=== PATIENT | male | born 1955 | race Caucasian/White ===

== ENCOUNTER 2018-09-03 15:58 | Inpatient (IN) | payer OTHER, SELFPAY ==
[2018-09-03] VITALS (8 sets, daily range): BP systolic 150–162; BP diastolic 73–94; PULSE 68–74; RESP 16–18; TEMP 36.5–36.8; O2SAT 97–100; BMI 21.8
--- NOTE | 2018-09-03 16:30 | CT_ITS ---
STUDY: CT ABDOMEN AND PELVIS WITH CONTRAST REASON FOR EXAM: Male, 62 years old. Abdominal pain with nausea/emesis. History of colon cancer personally on chemotherapy/immunotherapy. 2. Small bowel obstruction. RADIATION DOSAGE (If Supplied By Facility): CTDIvol = ( 15.14 ) mGy, DLP = ( 939.36 ) mGycm TECHNIQUE: Transaxial images were obtained from the dome of the diaphragm to the symphysis pubis without oral contrast. 75ML ml of Isovue 300 contrast was administered. Sagittal and coronal images were reconstructed. Individualized dose optimization techniques were used for this CT. COMPARISON: None. FINDINGS: Minor linear scarring or subsegmental atelectasis in the periphery of the lung bases. The visualized portions of the heart are within normal limits. Normal liver. The portal vein diameter is 17 mm. Normal gallbladder and extrahepatic biliary system. The common bile duct diameter near the aidan hepatis is 8.5 mm Normal spleen. Normal pancreas. Normal bilateral adrenal glands. The right kidney is surgically absent, and clips are noted at the right renal bed. There is mild left caliectasiss, but no ureteral dilatation. There is mural thickening of the distal esophagus. The stomach is moderately distended with gas and undigested food stuff/vomitus. There are numerous loops of mild to moderately gaseous and fluid distended small bowel leading up to an abrupt transition in the mid to posterior central abdomen (series 2 images 67-73, series 601 images 38-43; series 602 images 76-81). This is in close proximity to a suture line along the anterior margin of the junction of the second and third portions of the duodenum as well as a suture line along the medial margin of the proximal right colon that also borders a dilated small bowel loop in the left flank. The distal small bowel and colon are nondistended. There is non-visualization of the appendix. There is very small volume free fluid in the posterior pelvic region. There is minimal atherosclerotic calcification of the abdominal aorta, without a demonstrated aneurysm. Normal inferior vena cava. A cluster of surgical clips seen in the lateral right pelvis along the proximal right external iliac vessels. Normal urinary bladder. There is a coarse prostatic calcifications. Normal abdominal wall. There are multilevel degenerative changes of the visualized lumbar spine. There is mild rightward subluxation of L3 on L4 and a 25 degree dextroscoliosis centered at L2-3. CT/Abdomen/Pelvis WITH Contrast IMPRESSION: 1. Findings consistent with a significant partial small bowel obstruction with an abrupt transition in the posterior mid abdomen proximity to prior postsurgical change. There is no other demonstrated obstructing pathology, so this may reflect an adhesion. There is moderate distention of the stomach with gas and undigested food status. No free gas. 2. Mural thickening of the distal esophagus, which may reflect local esophagitis. 3. Prior right nephrectomy. There is mild left renal caliectasis. 4. Prior cholecystectomy. The appendix not visualized. 5. Very small volume free fluid in the posterior pelvic region. 6. Degenerative changes of the spine, including mild rightward subluxation of L3 on L4 and dextroscoliosis centered at L2-3. Electronically Signed: Bari Gasca MD at 18:32 EST , Service support ,
--- NOTE | 2018-09-03 16:31 | ED.VISSUMM ---
- ER Visit Summary Date of Service: 09/03/18 Chief Complaint: Abdominal pain History of Present Illness: The patient is a 62 M who is concerned he may have a small bowel obstruction. 2016 the patient underwent partial colectomy at [facility] for colon cancer. He completed chemotherapy and is currently undergoing immunotherapy with Dr. Ordoñez. The patient states that shortly after his initial surgery he had a small bowel obstruction that required surgical intervention. Since that time however he has not had any issues. Yesterday he reports 3 rapid succession episodes of diarrhea. After that he began to have abdominal pain that is diffuse which he states is very similar to the pain he experienced with a small bowel obstruction. Kept him up most the night and then today he attempted to make himself vomit several times. It was not until around noon when he ate a banana and then 45 minutes later when he had emesis. No further bowel movements since yesterday. No fevers. No urinary symptoms. Physical Examination: Afebrile vital signs are stable Gen: Well-nourished well-developed Head: Normocephalic atraumatic Eyes: Perrl EOMI ENT: TMs clear no rhinorrhea moist mucous membranes Neck: Supple no lymphadenopathy no JVD nontender CVS: Regular rate rhythm no murmurs normal S1-S2 Respiratory: No distress clear to auscultation bilaterally chest nontender Abdomen: Soft there is some slight tympany. There are hypoactive bowel sounds. Mildly tender to palpation without guarding or rebound Back: Nontender Extremity: Nontender no edema Skin: Normal color no rash Neuro: alert orientated ?3 CN II-XII intact normal strength sensation reflexes gait cerebellar Psych: Normal affect normal mood Test Results: CBC and lactic acid are normal. CT of the abdomen pelvis demonstrates a small bowel obstruction with an abrupt transition point in the mid gut. Emergency Department Course and Treatment: Patient has received IV fluids morphine and Zofran. NG tube will be placed. I have spoken with Dr. Marx whom the patient has seen in the past. Plan is admission to the hospital. Impression: 1. Acute small bowel obstruction This note was generated with [employer] dictation software. It may contain incorrect words, spelling, and punctuation that were not noted in review of the chart prior to signing ED Disposition - Plan for ED Patient: Chief Complaint: Abd Pain Referrals: Selin Fontanez [NON-STAFF] -
[2018-09-03] MEDS: Ondansetron 4 MG/2 ML Vial IV ×3 (16:54→23:26)
[2018-09-03] MEDS: 0.9% Normal Saline 1,000 ML 125 ML IV (16:54)
[2018-09-03 17:15] LABS: Absolute Lymphocyte Count 0.54 X10^3/ul (0.83-4.51); Absolute Neutrophil Count 8.7 X10^3/uL (2.0-7.7); Basophil# 0.01 X10^3/uL; Basophil% 0.1 % (0-1); Eosinophil# 0.01 X10^3/uL; Eosinophils% 0.1 % (0-5); Hematocrit 44.9 % (40-54); Hemoglobin 15.4 g/dl (13.0-16.5); Lymphocyte # 0.54 X10^3/ul (4.0); Lymphocyte % 5.4 % (19-41); Mean Corp Hgb Conc 34.3 g/gl (32-36); Mean Corpuscular Hgb 33.5 pg (27.0-32.0); Mean Corpuscular Volume 97.6 fL (80-94); Mean Platelet Vol. 9.5 fl (6.2-12.0); Monocyte# 0.78 X10^3/uL; Monocyte% 7.7 % (0-10); Neutrophil # 8.74 X10^3/uL (2.7-7.7); Neutrophil % 86.6 % (47-70); Platelet Count 200 K/mm3 (150-450); RBC Distribution Width SD 43.1 fl (35.1-43.9); White Blood Count 10.1 K/mm3 (4.4-11.0)
[2018-09-03 17:19] LABS: Differential Indicated SCAN CRITERIA MET; POSITIVE COUNT NO; POSITIVE DIFFERENTIAL YES; POSITIVE MORPHOLOGY NO
[2018-09-03 17:26] LABS: ALB/GLOB Ratio 1.3 RATIO (0.9-2.4); AST(SGOT) 23 U/L (15-37); Alanine Aminotransfer ALT/SGPT 27 U/L (16-61); Albumin, Serum 3.9 g/dL (3.2-5.0); Alkaline Phosphatase 70 U/L (45-117); Anion Gap 7 (5-15); BUN 20 mg/dL (7-18); BUN/Creat Ratio 13.4 RATIO (10-20); Calcium,Total 9.1 mg/dL (8.5-10.1); Chloride 104 mmol/L (98-107); Creatinine, Serum 1.49 mg/dL (0.70-1.30); EST Glomerular Filtration Rate 51 mL/min (>60); Est Glom Filt Rate - Afr Amer 61 mL/min (>60); Estimated Creatinine Clearance 58.35 ml/min; Globulin 3.1 g/dL (2.2-4.2); Glucose 140 mg/dL (74-106); Lipase 293 U/L (73-393); Potassium 4.2 mmol/L (3.5-5.1); Sodium Level 139 mmol/L (136-145)
[2018-09-03 17:31] LABS: Lactic Acid 1.3 mmol/L (0.4-2.0)
[2018-09-03 17:42] LABS: Anisocytosis 1+; Platelet Estimate ADEQUATE (ADEQ)
[2018-09-03 17:43] LABS: Macrocytosis RARE
[2018-09-03] MEDS: Morphine 4 MG/ML Syringe IV (18:14)
--- NOTE | 2018-09-03 19:22 | PCM.HP.STD ---
Problem List (1) Partial small bowel obstruction Status: Acute (2) Colon cancer Status: Chronic (3) New onset atrial fibrillation Status: Resolved (4) Hypotension Status: Resolved Qualifiers: Hypotension type: orthostatic hypotension Qualified Code(s): I95.1 - Orthostatic hypotension History of Present Illness Date of Admission: 09/03/18 Chief Complaint: abdominal pain The patient is a 62 year old M with a significant history of stage 4 colon cancer status post colectomy with complications of bowel obstruction after colectomy requiring another bowel surgery, chemotherapy and now on immunotherapy with Keytruda; one-time episode of A. fib secondary to low magnesium, who presented with sudden onset severe nonradiating diffuse abdominal pain that started the day before his admission. He has no alleviating or ameliorating factor to his pain. Just before the pain started he had 3 episodes of loose bowel movements. Ever since he has not had any other bowel movements. Associated with his symptoms is nausea and vomiting. He reported that in one of his vomitus he there was a speck of blood. CT of the abdomen and pelvis in the emergency department was remarkable for a partial small bowel obstruction. An NG tube to low wall suction was placed in the emergency department. At emergency department Dr. Santamaria, General Surgeon was consulted and will see patient in a.m. Past Medical History Past Medical History (Chronic Problems): Chronic Problems Colon cancer (Chronic) Allergies No Known Allergies Allergy (Verified 09/03/18 15:59) Home Medications: Ambulatory Orders Medication Instructions Recorded NK 09/03/18 Surgical History: colectomy, - - Surgery for small bowel obstruction Lives: With Family Smoking Status: Never smoker Drugs: None - *Family History Maternal Family History: Family History (Last Reviewed 09/03/18 @ 22:52 by Josep Allen MD) Mother Hypothyroidism Sister Hypothyroidism Multiple sclerosis History Items: No pertinent history Review of Systems Constitutional: Reports: Anorexia. Denies: Chills, Fever, Weight Change HEENT: Denies: Head Aches, Sinus Congestion, Sinus Drainage Cardiovascular: Denies: Chest Pain, Palpitations Respiratory: Denies: Cough, Shortness of breath at rest, Sputum production Gastrointestinal: Reports: Abdominal Pain, Nausea, Vomiting Genitourinary: Denies: Dysuria Musculoskeletal: Denies: Joint Pain, Joint Tenderness Skin: Denies: Rash, Wounds Neurological: Denies: Numbness, Tingling, Focal weakness Psychiatric: Denies: Anxiety, Depression, Homicidal Ideations, Suicidal Ideations Hematologic/ Lymphatic: Denies: Easy Bruising, Easy Bleeding VTE Information - Inpt Only VTE Present on Admission: No VTE Mechan Device Prophylaxis: None VTE Pharm Prophylaxis ordered?: Yes Patient Problems: Active and Suspected Problems Partial small bowel obstruction (Acute) - Physical Exam General: Alert, Oriented x3, Cooperative HEENT: Atraumatic, PERRLA, EOMI, Normocephalic Neck: Supple, No JVD, Negative Carotid Bruits Lungs: Clear to auscultation, Normal air movement Cardiovascular: Regular rate, No murmurs Abdomen: Soft, Non Tender, Bowel Sounds Not Present Extremities: No edema, Capillary Refill Less than 3 Seconds Skin: No rashes, No breakdown Musculoskeletal: No Tenderness to Palpation of Joints or Extremities Neurological: Neuro grossly intact Psych/Mental Status: Normal Affect, Appropriate Vital Signs Temp Pulse Resp BP Pulse Ox 98.3 F 71 16 160/73 H 100 09/03/18 19:20 09/03/18 19:20 09/03/18 19:20 09/03/18 19:20 09/03/18 18:17 Oxygen Delivery Method Room Air Weight: 81.3 kg Body Mass Index (BMI) 21.8 Laboratory Tests Past 24 Hrs 09/03/18 09/03/18 09/03/18 17:01 17:01 17:01 WBC 10.1 RBC 4.60 Hgb 15.4 Hct 44.9 MCV 97.6 H MCH 33.5 H MCHC 34.3 RDW 12.0 RDW Differential 43.1 Plt Count 200 MPV 9.5 Immature Gran % (Auto) 0.100 Neut % (Auto) 86.6 H Lymph % (Auto) 5.4 L [place] % (Auto) 7.7 Eos % (Auto) 0.1 Baso % (Auto) 0.1 Absolute Neuts (auto) 8.7 H Absolute Lymphs (auto) 0.54 L Total Counted Not Reportable Differential Comment SEE COMMENT Platelet Estimate ADEQUATE Anisocytosis 1+ Macrocytosis RARE Sodium 139 Potassium 4.2 Chloride 104 Carbon Dioxide 28.0 Anion Gap 7 BUN 20 H Creatinine 1.49 H Estim Creat Clear Calc 58.35 Est GFR (MDRD) Af Amer 61 Est GFR (MDRD) Non-Af 51 L BUN/Creatinine Ratio 13.4 Glucose 140 H Lactic Acid 1.3 Calcium 9.1 Total Bilirubin 0.90 AST 23 ALT 27 Alkaline Phosphatase 70 Total Protein 7.0 Albumin 3.9 Globulin 3.1 Albumin/Globulin Ratio 1.3 Lipase 293 Assessment/Plan All Active Problems Partial small bowel obstruction (Acute) New onset atrial fibrillation (Resolved) Hypotension (Resolved) The patient is a 62 year old M with a significant history of stage 4 colon cancer status post colectomy with complications of bowel obstruction after colectomy requiring another bowel surgery, chemotherapy and now on immunotherapy with Keytruda; one-time episode of A. fib secondary to low magnesium; who presented with sudden onset severe nonradiating diffuse abdominal pain; nausea; vomiting and with radiographic evidence of partial small bowel obstruction. Small bowel obstruction Continue NG tube to low wall suction. Lactated Ringer's with potassium ordered. Morphine IV as needed Antiemetics with IV Zofran and Compazine ordered. Stage IV colon cancer. Patient gets a Keytruda every 3 weeks. Patient reports that Keytruda is due next week Thursday. Continue outpatient management. Elevated blood pressure without diagnosis of hypertension. On admission his blood pressure was elevated. But he reported that typically he has low blood pressure. His elevated blood pressure may be secondary to pain. Hydralazine as needed ordered. DVT prophylaxis subcutaneous heparin. Code Visit Inpatient E&M: 50041 Init Hosp L3
[2018-09-03] MEDS: Lidocaine 4% 5 ML Ampul 2 ML INHALATION (19:30)
--- NOTE | 2018-09-03 19:35 | RAD_ITS ---
STUDY: X-RAY - ABDOMEN/PELVIS REASON FOR EXAM: Male, 62 years old. NG tube placement TECHNIQUE: 1 view COMPARISON: None. FINDINGS: Enteric tube is in the gastric lumen well below the gastroesophageal junction in the mid stomach. Continued small bowel distention. There is no demonstrated free abdominal air. RAD/Abdomen Single View (Portable) IMPRESSION: Enteric tube is in the gastric lumen well below the gastroesophageal junction. Continued small bowel distention consistent with obstruction. Electronically Signed: Angeli Franklin MD at 20:23 EST , Service support ,
[2018-09-03] MEDS: 0.9% NaCl Peripheral Flush Adult/Peds IV ×3 (21:55→23:27)
[2018-09-03] MEDS: Morphine 2 MG/ML Syringe IV (23:19)
[2018-09-03] MEDS: Heparin Injection (Vial) 5,000 UNIT/ML VIAL 5000 UNIT SC (23:30)
[2018-09-04 02:42] VITALS: BP 136/89; PULSE 68; RESP 16; TEMP 36.6; O2SAT 100
[2018-09-04] MEDS: 0.9% NaCl Peripheral Flush Adult/Peds IV ×7 (02:48→15:38)
[2018-09-04] MEDS: proCHLORPERazine 10 MG/2 ML Vial 5 MG IV ×3 (02:48→20:13)
[2018-09-04] MEDS: Morphine 2 MG/ML Syringe IV (06:00)
[2018-09-04] MEDS: Ondansetron 4 MG/2 ML Vial IV ×3 (06:00→22:43)
[2018-09-04] MEDS: Heparin Injection (Vial) 5,000 UNIT/ML VIAL 5000 UNIT SC ×3 (06:06→22:43)
[2018-09-04 06:09] LABS: Absolute Lymphocyte Count 0.56 X10^3/ul (0.83-4.51); Absolute Neutrophil Count 4.9 X10^3/uL (2.0-7.7); Basophil# 0.01 X10^3/uL; Basophil% 0.1 % (0-1); Eosinophil# 0.03 X10^3/uL; Eosinophils% 0.4 % (0-5); Hematocrit 43.4 % (40-54); Hemoglobin 14.8 g/dl (13.0-16.5); Lymphocyte # 0.56 X10^3/ul (4.0); Lymphocyte % 8.4 % (19-41); Mean Corp Hgb Conc 34.1 g/gl (32-36); Mean Corpuscular Hgb 33.4 pg (27.0-32.0); Mean Platelet Vol. 9.3 fl (6.2-12.0); Monocyte# 1.21 X10^3/uL; Monocyte% 18.1 % (0-10); Neutrophil # 4.86 X10^3/uL (2.7-7.7); Neutrophil % 72.9 % (47-70); Platelet Count 185 K/mm3 (150-450); RBC Distribution Width SD 43.6 fl (35.1-43.9); Red Blood Count 4.43 M/mm3 (4.6-6.2); White Blood Count 6.7 K/mm3 (4.4-11.0)
[2018-09-04 06:10] LABS: POSITIVE COUNT NO; POSITIVE DIFFERENTIAL YES; POSITIVE MORPHOLOGY NO
[2018-09-04 06:11] LABS: Differential Indicated SCAN CRITERIA MET
[2018-09-04 06:21] LABS: Anion Gap 7 (5-15); BUN 19 mg/dL (7-18); BUN/Creat Ratio 11.8 RATIO (10-20); Calcium,Total 8.7 mg/dL (8.5-10.1); Chloride 103 mmol/L (98-107); Creatinine, Serum 1.61 mg/dL (0.70-1.30); EST Glomerular Filtration Rate 46 mL/min (>60); Est Glom Filt Rate - Afr Amer 56 mL/min (>60); Glucose 136 mg/dL (74-106); Potassium 4.6 mmol/L (3.5-5.1); Sodium Level 139 mmol/L (136-145)
[2018-09-04 07:08] VITALS: O2SAT 98
--- NOTE | 2018-09-04 08:00 | RAD_ITS ---
STUDY: X-RAY - ABDOMEN/PELVIS REASON FOR EXAM: Male, 62 years old. Small bowel obstruction. TECHNIQUE: AP supine and upright views of the abdomen and pelvis. COMPARISON: CT scan and plain films of 09/03/2018. FINDINGS: Normal visualized lung bases. Nasogastric tube terminates in the fundus of the stomach. Continued abnormal bowel gas pattern with numerous distended loops of small bowel and almost no large bowel air. Findings continue to represent small bowel obstruction. No free air. The visualized liver, spleen and kidneys are grossly normal in size and morphology. Normal soft tissue structures. There are diffuse degenerative changes of the visualized lumbar spine. RAD/Abd Inc Decub and/or Erect IMPRESSION: Continued small bowel obstruction. Electronically Signed: Singh Ramos MD at 9:58 EST , Service support ,
--- NOTE | 2018-09-04 08:05 | PCM.CONS.GEN ---
Reason for Consult Date of Consultation: 09/04/18 Reason for Consultation: bowel obstruction-nausea vomiting History of Present Illness: The patient is a 62 year old M with a complex medical history due to metastatic abdominal colon cancer. The patient had been is his usual state of health when night he had 3 episodes of watery diarrheal stool followed by abdominal distention and abdominal pain. As evening or on the patient had persistent abdominal pain followed by nausea and vomiting. His symptoms fail to improve and he presented to [facility] emergency department Thursday night. The patient was evaluated found to have unremarkable white blood cell count and laboratory parameters area CT scan of the abdomen pelvis was obtained which demonstrated surgical changes consistent with his past surgical history and was felt to be a bowel obstruction with a transition point noted to be near the previous ilio colic anastomosis. Nasogastric tube was placed and postprocedure x-ray demonstrated good positioning of the NG tube. The patient denies flatus since admission. He notes he still has abdominal discomfort but overall this is improved with narcotic pain medication and he is no longer nauseated vomiting. NG tube has good output. The patient [facility] on February 01, 2016 for a cecal cancer which was perforated. Pathology at that time demonstrated the tumor with 1 of 31 lymph nodes positive. Final pathologic stage was pT4a pN1a stage IIIB. The patient was started on chemotherapy but developed a sustained bowel obstruction. he was admitted again [facility] and on March 04, 2016 underwent exploratory laparotomy which demonstrated abdominal metastases. He had an extensive lysis of intra-abdominal adhesions with release of small bowel obstruction. 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 there was felt to be tumor adherent to the sigmoid colon so he underwent a distal resection of the sigmoid colon along with resection of serosal implants and resection of part of the right psoas muscle for was also felt to be metastatic implants. I performed colonoscopy on November 27, 2017. The patient was found to have healthy ileocolic and healthy-appearing colocolic anastomoses. I was able to easily advance beyond both anastomoses. The small bowel proximal to the ileocolic anastomosis appeared normal. There were no signs of anastomotic strictures or other issues at that time or location. Past Medical History Past Medical History (Chronic Problems): Chronic Problems Colon cancer (Chronic) Allergies No Known Allergies Allergy (Verified 09/03/18 15:59) Home Medications: Ambulatory Orders Medication Instructions Recorded NK 09/03/18 Surgical History: colectomy - 02/01/16, - - Surgery for small bowel obstruction - right nephrectomy, sigmoid colectomy, partial psoas resection, debulking, extensive lysis of adhesions - 03/04/16 Lives: With Family Smoking Status: Never smoker Drugs: None - *Family History Maternal Family History: Family History (Last Reviewed 09/03/18 @ 22:52 by Josep Allen MD) Mother Hypothyroidism Sister Hypothyroidism Multiple sclerosis History Items: No pertinent history Review of Systems Constitutional: Denies: Chills, Fever, Weight Change HEENT: Denies: Head Aches, Sinus Congestion, Sinus Drainage Cardiovascular: Denies: Chest Pain, Palpitations Respiratory: Denies: Cough, Shortness of breath at rest, Sputum production Gastrointestinal: Reports: Abdominal Pain, Nausea, Vomiting Genitourinary: Denies: Dysuria Musculoskeletal: Denies: Joint Pain, Joint Tenderness Skin: Denies: Rash, Wounds Neurological: Denies: Numbness, Tingling, Focal weakness Psychiatric: Denies: Anxiety, Depression, Homicidal Ideations, Suicidal Ideations Hematologic/ Lymphatic: Denies: Easy Bruising, Easy Bleeding Patient Problems: Active and Suspected Problems Partial small bowel obstruction (Acute) - Physical Exam General: Alert, Oriented x3, - - well-hydrated, thin-appearing HEENT: Atraumatic, PERRLA, EOMI, Normocephalic Lungs: Clear to auscultation, Normal air movement Cardiovascular: Regular rate, No murmurs Abdomen: Soft, Hypoactive Bowel Sounds, Distended - but not rigid with minimal diffuse tenderness without peritoneal signs Vital Signs Temp Pulse Resp BP Pulse Ox 98 F 68 16 136/89 H 98 09/04/18 02:42 09/04/18 02:42 09/04/18 02:42 09/04/18 02:42 09/04/18 07:08 Oxygen Delivery Method Room Air Weight: 81.3 kg Body Mass Index (BMI) 21.8 Intake and Output for Last 24 Hours 09/02/18 09/03/18 09/04/18 23:59 23:59 23:59 Intake Total 781 / 781 Output Total 1050 / 1050 Balance -269 / -269 Laboratory Tests Past 24 Hrs 09/03/18 09/03/18 09/03/18 17:01 17:01 17:01 WBC 10.1 RBC 4.60 Hgb 15.4 Hct 44.9 MCV 97.6 H MCH 33.5 H MCHC 34.3 RDW 12.0 RDW Differential 43.1 Plt Count 200 MPV 9.5 Immature Gran % (Auto) 0.100 Neut % (Auto) 86.6 H Lymph % (Auto) 5.4 L [place] % (Auto) 7.7 Eos % (Auto) 0.1 Baso % (Auto) 0.1 Absolute Neuts (auto) 8.7 H Absolute Lymphs (auto) 0.54 L Total Counted Not Reportable Differential Comment SEE COMMENT Platelet Estimate ADEQUATE Anisocytosis 1+ Macrocytosis RARE Sodium 139 Potassium 4.2 Chloride 104 Carbon Dioxide 28.0 Anion Gap 7 BUN 20 H Creatinine 1.49 H Estim Creat Clear Calc 58.35 Est GFR (MDRD) Af Amer 61 Est GFR (MDRD) Non-Af 51 L BUN/Creatinine Ratio 13.4 Glucose 140 H Lactic Acid 1.3 Calcium 9.1 Total Bilirubin 0.90 AST 23 ALT 27 Alkaline Phosphatase 70 Total Protein 7.0 Albumin 3.9 Globulin 3.1 Albumin/Globulin Ratio 1.3 Lipase 293 09/04/18 09/04/18 06:00 06:00 WBC 6.7 RBC 4.43 L Hgb 14.8 Hct 43.4 MCV 98.0 H MCH 33.4 H MCHC 34.1 RDW 12.0 RDW Differential 43.6 Plt Count 185 MPV 9.3 Immature Gran % (Auto) 0.100 Neut % (Auto) 72.9 H Lymph % (Auto) 8.4 L [place] % (Auto) 18.1 H Eos % (Auto) 0.4 Baso % (Auto) 0.1 Absolute Neuts (auto) 4.9 Absolute Lymphs (auto) 0.56 L Total Counted Not Reportable Differential Comment Platelet Estimate Anisocytosis Macrocytosis Sodium 139 Potassium 4.6 Chloride 103 Carbon Dioxide 29.0 Anion Gap 7 BUN 19 H Creatinine 1.61 H Estim Creat Clear Calc 54.00 Est GFR (MDRD) Af Amer 56 L Est GFR (MDRD) Non-Af 46 L BUN/Creatinine Ratio 11.8 Glucose 136 H Lactic Acid Calcium 8.7 Total Bilirubin AST ALT Alkaline Phosphatase Total Protein Albumin Globulin Albumin/Globulin Ratio Lipase Assessment/Plan All Active Problems Partial small bowel obstruction (Acute) New onset atrial fibrillation (Resolved) Hypotension (Resolved) 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 Now with small bowel obstruction. CT scan suggests relatively distal small bowel obstruction. Given the nephrectomy, psoas resection, sigmoid resection and debulking, with recent colonoscopy demonstrated no anastomotic stricture, consisting obviously with adhesive small bowel obstruction. Given patient's complicated past history, we will plan for conservative management if possible. NG tube, IV fluid support, we will follow with serial abdominal exams and x-rays. This morning's x-ray is currently pending. If improving without complete resolution may trial Gastrografin through NG tube. Discussed with patient that surgery would be planned last option. do not see signs of recurrent mass causing obstruction on CT images and no mention by radiologic report. Comment of transition point near staple line between second and third portion of the duodenum. No mention operative report of duodenal involvement at initial surgery and review of staple location likely demonstrates this was stapled anastomosis of the right colon vasculature. Between resection that location, nephrectomy and so his resection, anticipate small bowel adhesion with transition at that location.
[2018-09-04 08:30] VITALS: BP 129/64; PULSE 56; RESP 16; TEMP 36.7; O2SAT 99
--- NOTE | 2018-09-04 09:32 | PN_ITS ---
Patient Problems: Active and Suspected Problems Partial small bowel obstruction (Acute) Subjective: Follow-up on partial small bowel obstruction: Patient was seen and examined. Admitted last night with nausea vomiting and diarrhea. NG tube inserted to continuous drainage. General surgery consulted. Denied any abdominal pain, flatus or bowel movement. Vitals/I&O's: Vital Signs Temp Pulse Resp BP Pulse Ox 98.0 F 56 L 16 129/64 H 99 09/04/18 08:30 09/04/18 08:30 09/04/18 08:30 09/04/18 08:30 09/04/18 08:30 Oxygen Delivery Method Room Air Weight: 81.3 kg Body Mass Index (BMI) 21.8 Intake and Output for Last 24 Hours 09/02/18 09/03/18 09/04/18 23:59 23:59 23:59 Intake Total 781 / 781 Output Total 1050 / 1050 Balance -269 / -269 General: Alert, Oriented x3, Cooperative, No apparent distress, - HEENT: Atraumatic, PERRLA, EOMI, Normocephalic, - - NG tube inserted Oral: Moist Mucosa Neck: Supple, No JVD, Negative Carotid Bruits Lungs: Clear to auscultation, Normal air movement Cardiovascular: Regular rate, Regular Rhythm, Normal S1, Normal S2, No murmurs Abdomen: Bowel Sounds Present, Soft, Non Tender, Non-Distended, No Hepato- splenomegaly Extremities: No edema Skin: No rashes, No breakdown Musculoskeletal: No Tenderness to Palpation of Joints or Extremities Lymphatic: No Cervical, Supraclavicular, or Inguinal Adenopathy Neurological: Cranial nerves II-XII grossly intact, Neuro grossly intact Psych/Mental Status: Normal Affect, Appropriate Laboratory Results 09/03/18 17:01: WBC 10.1, RBC 4.60, Hgb 15.4, Hct 44.9, MCV 97.6 H, MCH 33.5 H, MCHC 34.3, RDW 12.0, RDW Differential 43.1, Plt Count 200, MPV 9.5, Immature Gran % (Auto) 0.100, Neut % (Auto) 86.6 H, Lymph % (Auto) 5.4 L, [place] % (Auto) 7.7, Eos % (Auto) 0.1, Baso % (Auto) 0.1, Absolute Neuts (auto) 8.7 H, Absolute Lymphs (auto) 0.54 L, Total Counted Not Reportable, Differential Comment SEE COMMENT, Platelet Estimate ADEQUATE, Anisocytosis 1+, Macrocytosis RARE 09/03/18 17:01: Sodium 139, Potassium 4.2, Chloride 104, Carbon Dioxide 28.0, Anion Gap 7, BUN 20 H, Creatinine 1.49 H, Estim Creat Clear Calc 58.35, Est GFR (MDRD) Af Amer 61, Est GFR (MDRD) Non-Af 51 L, BUN/Creatinine Ratio 13.4, Glucose 140 H, Calcium 9.1, Total Bilirubin 0.90, AST 23, ALT 27, Alkaline Phosphatase 70, Total Protein 7.0, Albumin 3.9, Globulin 3.1, Albumin/Globulin Ratio 1.3, Lipase 293 09/03/18 17:01: Lactic Acid 1.3 09/04/18 06:00: WBC 6.7, RBC 4.43 L, Hgb 14.8, Hct 43.4, MCV 98.0 H, MCH 33.4 H, MCHC 34.1, RDW 12.0, RDW Differential 43.6, Plt Count 185, MPV 9.3, Immature Gran % (Auto) 0.100, Neut % (Auto) 72.9 H, Lymph % (Auto) 8.4 L, [place] % (Auto) 18.1 H, Eos % (Auto) 0.4, Baso % (Auto) 0.1, Absolute Neuts (auto) 4.9, Absolute Lymphs (auto) 0.56 L, Total Counted Not Reportable 09/04/18 06:00: Sodium 139, Potassium 4.6, Chloride 103, Carbon Dioxide 29.0, Anion Gap 7, BUN 19 H, Creatinine 1.61 H, Estim Creat Clear Calc 54.00, Est GFR (MDRD) Af Amer 56 L, Est GFR (MDRD) Non-Af 46 L, BUN/Creatinine Ratio 11.8, Glucose 136 H, Calcium 8.7 Current Medications Heparin Sodium (Porcine) (Heparin Na) 5,000 unit SC Q8 OLINDA Last Admin: 09/04/18 06:06 Dose: 5,000 unit Hydralazine HCl (Apresoline Iv) 5 mg IV Q4H PRN PRN PRN Reason: SBP > 160 Sodium Chloride () 1,000 mls @ 100 mls/hr IV .Q10H OLINDA Magnesium Hydroxide (Milk Of Magnesia) 30 ml PO DAILY PRN PRN PRN Reason: Constipation Morphine Sulfate () 1 mg IV Q4H PRN PRN PRN Reason: PAIN Ondansetron HCl (Zofran) 4 mg IV Q6H PRN PRN PRN Reason: NAUSEA/VOMITING Last Admin: 09/04/18 06:00 Dose: 4 mg Prochlorperazine Edisylate (Compazine Iv) 5 mg IV Q4H PRN PRN PRN Reason: NAUSEA/VOMITING Last Admin: 09/04/18 02:48 Dose: 5 mg Sodium Chloride () 5 - 15 ml IV UD PRN PRN Reason: SALINE FLUSH Last Admin: 09/04/18 06:00 Dose: 10 ml Medical Necessity - Tobacco Use Smoking Status: Never smoker Assessment/Plan All Active Problems Partial small bowel obstruction (Acute) New onset atrial fibrillation (Resolved) Hypotension (Resolved) 62 year old M with past medical history of stage 4 colon cancer status post colectomy, s/p right katelyn-colectomy, sigmoid resection, s/p chemotherapy, on immunotherapy with Keytruda, admitted with abdominal pain, nausea; vomiting. CT abdomen/pelvis showed partial small bowel obstruction. 1. Partial small bowel obstruction, on continuous suction, general surgery consulted, on conservative management, will continue with IV fluids, prn anti- emetics. 2. Elevated Blood pressure, no diagnosis of hypertension, BP relatively improved, will continue to monitor 3. Stage IV colon cancer, s/p right katelyn-colectomy, sigmoid resection, on immunotherapy 4. s/p right kidney/ureter/psoas resection 5. DVT prophylaxis- Heparin SC Code Visit Inpatient E&M: 95209 Subs Hosp L2
[2018-09-04] MEDS: Morphine 2 MG/ML Syringe 1 MG IV ×3 (10:53→20:13)
--- NOTE | 2018-09-04 12:02 | CM.UR ---
See mat linker. Met face to face with patient, introduced myself and my role. Denies any needs and anticipates no needs upon discharge. He has never had an ostomy with any of his abd surgeries. Plan is bowel rest at this time to see if obstruction resolves. Instructed patient that case management will remain available should any needs arise. Verb understanding. Pam Bazan RN, [facility].
[2018-09-04 13:03] VITALS: BP 137/78; PULSE 62; RESP 16; TEMP 36.5; O2SAT 99
--- NOTE | 2018-09-04 17:50 | NURSING ---
Patient ambulated in halls with .
[2018-09-04 20:02] VITALS: BP 156/91; PULSE 60; RESP 14; TEMP 36.9; O2SAT 97
[2018-09-04] MEDS: LORazepam 2 MG/ML Syringe 0.5 MG IV (23:57)
[2018-09-05 02:56] VITALS: BP 160/78; PULSE 62; RESP 16; TEMP 36.7; O2SAT 98
[2018-09-05] MEDS: proCHLORPERazine 10 MG/2 ML Vial 5 MG IV ×2 (03:04→15:21)
[2018-09-05] MEDS: Morphine 2 MG/ML Syringe 1 MG IV ×2 (05:06→17:52)
--- NOTE | 2018-09-05 06:00 | RAD_ITS ---
STUDY: X-RAY - ABDOMEN/PELVIS REASON FOR EXAM: Male, 62 years old. Small bowel obstruction follow-up chest TECHNIQUE: AP supine and upright views of the abdomen and pelvis. COMPARISON: Previous day FINDINGS: Enteric tube is stable extending to the upper stomach. Increased amount of gaseous distention of the stomach since the prior study, however, persistent, similar appearance of dilated (5.4 cm) small bowel throughout the abdomen. Air-fluid levels are identified on upright imaging. Colonic gas is identified. There are surgical yelena in the right abdomen. There is no demonstrated free abdominal air. The visualized liver, spleen and kidneys are grossly normal in size and morphology. Normal soft tissue structures. There are diffuse degenerative changes of the visualized lumbar spine. RAD/Abd Inc Decub and/or Erect IMPRESSION: 1. Stable small bowel obstruction. Increased gaseous distention of stomach since prior study. Electronically Signed: Gabriel Castellanos MD at 11:09 EST , Service support ,
[2018-09-05 06:28] LABS: Anion Gap 7 (5-15); BUN 19 mg/dL (7-18); BUN/Creat Ratio 12.3 RATIO (10-20); Calcium,Total 8.5 mg/dL (8.5-10.1); Chloride 104 mmol/L (98-107); Creatinine, Serum 1.54 mg/dL (0.70-1.30); EST Glomerular Filtration Rate 49 mL/min (>60); Est Glom Filt Rate - Afr Amer 59 mL/min (>60); Estimated Creatinine Clearance 56.46 ml/min; Glucose 117 mg/dL (74-106); Potassium 4.4 mmol/L (3.5-5.1); Sodium Level 139 mmol/L (136-145)
[2018-09-05] MEDS: Heparin Injection (Vial) 5,000 UNIT/ML VIAL 5000 UNIT SC ×3 (06:43→23:14)
[2018-09-05 09:36] VITALS: BP 145/76; PULSE 60; RESP 18; TEMP 36.7; O2SAT 96
[2018-09-05] MEDS: 0.9% NaCl Peripheral Flush Adult/Peds IV ×4 (09:42→23:14)
[2018-09-05] MEDS: Ondansetron 4 MG/2 ML Vial IV ×2 (09:42→17:53)
--- NOTE | 2018-09-05 10:17 | PCM.PN.SRG ---
Patient Problems: Active and Suspected Problems Partial small bowel obstruction (Acute) Subjective: sterile abdominal discomfort somewhat improved no flatus no bowel movement - Physical Exam General: Alert, Oriented x3 Lungs: Clear to auscultation, Normal air movement Cardiovascular: Regular rate, No murmurs Abdomen: Soft, Non Tender, Bowel Sounds Not Present, Distended Vital Signs Temp Pulse Resp BP Pulse Ox 98.0 F 60 18 145/76 H 96 09/05/18 09:36 09/05/18 09:36 09/05/18 09:36 09/05/18 09:36 09/05/18 09:36 Oxygen Delivery Method Room Air Weight: 81.3 kg Body Mass Index (BMI) 21.8 Intake and Output for Last 24 Hours 09/03/18 09/04/18 09/05/18 23:59 23:59 23:59 Intake Total 1370 / 1370 1808 / 1808 Output Total 2600 / 2600 300 / 300 Balance -1230 / -1230 1508 / 1508 Laboratory Tests Past 24 Hrs 09/05/18 05:45 Sodium 139 Potassium 4.4 Chloride 104 Carbon Dioxide 28.0 Anion Gap 7 BUN 19 H Creatinine 1.54 H Estim Creat Clear Calc 56.46 Est GFR (MDRD) Af Amer 59 L Est GFR (MDRD) Non-Af 49 L BUN/Creatinine Ratio 12.3 Glucose 117 H Calcium 8.5 Medical Necessity - Tobacco Use Smoking Status: Never smoker Assessment/Plan All Active Problems Partial small bowel obstruction (Acute) New onset atrial fibrillation (Resolved) Hypotension (Resolved) 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 Now with small bowel obstruction. CT scan suggests relatively distal small bowel obstruction. Given the nephrectomy, psoas resection, sigmoid resection and debulking, with recent colonoscopy demonstrated no anastomotic stricture, consisting obviously with adhesive small bowel obstruction. Given patient's complicated past history, we will plan for conservative management if possible. NG tube, IV fluid support, we will follow with serial abdominal exams and x-rays. This morning's x-ray demonstrates continued gastric distention, slightly fewer loops of small bowel distention though one still distended loop and some gas in the colon. NG tube noted to have An infant. Removed, NG tube manipulated and 500 cc of liquid along with air were evacuated from his stomach. He noted some improvement in her discomfort at that point in time. If improving without complete resolution may trial Gastrografin through NG tube. Discussed with patient that surgery would be planned last option. do not see signs of recurrent mass causing obstruction on CT images and no mention by radiologic report. Comment of transition point near staple line between second and third portion of the duodenum. No mention operative report of duodenal involvement at initial surgery and review of staple location likely demonstrates this was stapled anastomosis of the right colon vasculature. Between resection that location, nephrectomy and so his resection, anticipate small bowel adhesion with transition at that location. given his overall clinical status of protein wasting and failure for quick resolution, I agree with starting TPN.
--- NOTE | 2018-09-05 10:21 | PN_ITS ---
Patient Problems: Active and Suspected Problems Partial small bowel obstruction (Acute) Subjective: Patient was seen and examined. Still has not passed gas or stools. NG tube insitu. Apparently was capped yesterday. Repeat abdominal KUB shows gaseous distention Discussed with general surgery, continue with conservative management. Will start patient on TPN. Objective: Physical exam: General: Alert, Oriented x3, Cooperative, No apparent distress HEENT: Atraumatic, PERRLA, EOMI, Normocephalic, - - NG tube inserted Oral: Moist Mucosa Neck: Supple, No JVD, Negative Carotid Bruits Lungs: Clear to auscultation, Normal air movement Cardiovascular: Regular rate, Regular Rhythm, Normal S1, Normal S2, No murmurs Abdomen: Bowel Sounds Present, Soft, Non Tender, Non-Distended, No Hepato- splenomegaly Extremities: No edema Skin: No rashes, No breakdown Musculoskeletal: No Tenderness to Palpation of Joints or Extremities Lymphatic: No Cervical, Supraclavicular, or Inguinal Adenopathy Neurological: Cranial nerves II-XII grossly intact, Neuro grossly intact Psych/Mental Status: Normal Affect, Appropriate Vitals/I&O's: Vital Signs Temp Pulse Resp BP Pulse Ox 98.0 F 60 18 145/76 H 96 09/05/18 09:36 09/05/18 09:36 09/05/18 09:36 09/05/18 09:36 09/05/18 09:36 Oxygen Delivery Method Room Air Weight: 81.3 kg Body Mass Index (BMI) 21.8 Intake and Output for Last 24 Hours 09/03/18 09/04/18 09/05/18 23:59 23:59 23:59 Intake Total 1370 / 1370 1808 / 1808 Output Total 2600 / 2600 300 / 300 Balance -1230 / -1230 1508 / 1508 Laboratory Results 09/05/18 05:45: Sodium 139, Potassium 4.4, Chloride 104, Carbon Dioxide 28.0, Anion Gap 7, BUN 19 H, Creatinine 1.54 H, Estim Creat Clear Calc 56.46, Est GFR (MDRD) Af Amer 59 L, Est GFR (MDRD) Non-Af 49 L, BUN/Creatinine Ratio 12.3, Glucose 117 H, Calcium 8.5 Current Medications Heparin Sodium (Porcine) (Heparin Na) 5,000 unit SC Q8 OLINDA Last Admin: 09/05/18 06:43 Dose: 5,000 unit Hydralazine HCl (Apresoline Iv) 5 mg IV Q4H PRN PRN PRN Reason: SBP > 160 Potassium Chloride/Sodium Chloride () 1,000 mls @ 100 mls/hr IV .Q10H OLINDA Last Admin: 09/05/18 06:43 Dose: 100 mls/hr Lorazepam (Ativan) 0.5 mg IV Q4H PRN PRN PRN Reason: RESTLESSNESS Last Admin: 09/04/18 23:57 Dose: 0.5 mg Magnesium Hydroxide (Milk Of Magnesia) 30 ml PO DAILY PRN PRN PRN Reason: Constipation Morphine Sulfate () 1 mg IV Q4H PRN PRN PRN Reason: PAIN Last Admin: 09/05/18 05:06 Dose: 1 mg Ondansetron HCl (Zofran) 4 mg IV Q6H PRN PRN PRN Reason: NAUSEA/VOMITING Last Admin: 09/05/18 09:42 Dose: 4 mg Prochlorperazine Edisylate (Compazine Iv) 5 mg IV Q4H PRN PRN PRN Reason: NAUSEA/VOMITING Last Admin: 09/05/18 03:04 Dose: 5 mg Sodium Chloride () 5 - 15 ml IV UD PRN PRN Reason: SALINE FLUSH Last Admin: 09/05/18 09:42 Dose: 10 ml Medical Necessity - Tobacco Use Smoking Status: Never smoker Assessment/Plan All Active Problems Partial small bowel obstruction (Acute) New onset atrial fibrillation (Resolved) Hypotension (Resolved) 62 year old M with past medical history of stage 4 colon cancer status post colectomy, s/p right katelyn-colectomy, sigmoid resection, s/p chemotherapy, on immunotherapy with Keytruda, admitted with abdominal pain, nausea; vomiting. CT abdomen/pelvis showed partial small bowel obstruction. 1. Partial small bowel obstruction, on continuous suction, general surgery consulted, on conservative management, continue with gentle IV fluids, prn anti- emetics. He will be started on TPN -discussed with dietitian and pharmacist. 2. Elevated Blood pressure, no diagnosis of hypertension, BP has been fluctuating, will continue to monitor, prn hydralazine, will continue to monitor 3. Stage IV colon cancer, s/p right katelyn-colectomy, sigmoid resection, on immunotherapy 4. s/p right kidney/ureter/psoas resection 5. DVT prophylaxis- Heparin SC 6. Disposition: Anticipate 24-48 hours with discharge home Code Visit Inpatient E&M: 91063 Subs Hosp L2
[2018-09-05 13:35] VITALS: O2SAT 94
[2018-09-05 15:09] VITALS: BP 152/80; PULSE 67; RESP 18; TEMP 36.7; O2SAT 98
[2018-09-05 19:53] VITALS: BP 157/79; PULSE 59; RESP 16; TEMP 36.4; O2SAT 98
[2018-09-05] MEDS: LORazepam 2 MG/ML Syringe 0.5 MG IV (23:14)
[2018-09-06 03:44] VITALS: BP 156/79; PULSE 67; RESP 16; TEMP 36.8; O2SAT 99
--- NOTE | 2018-09-06 05:00 | RAD_ITS ---
STUDY: X-RAY - ABDOMEN/PELVIS REASON FOR EXAM: Male, 62 years old. Small bowel obstruction TECHNIQUE: 3 views COMPARISON: September 04, 2018 FINDINGS: There is small bowel obstruction demonstrated by numerous air-fluid levels in the mid abdomen. The findings look worse than had been seen on September 04, 2018 The tip of a nasogastric tube is in the stomach. There is no free intraperitoneal air. There are no abnormal calcifications in the kidneys. RAD/Abd Inc Decub and/or Erect IMPRESSION: Small bowel obstruction. The air fluid levels are more impressive on today's examination than were noted on September 04, 2018 Electronically Signed: Kole Craft MD at 6:02 EST Tel , Service support ,
[2018-09-06] MEDS: Heparin Injection (Vial) 5,000 UNIT/ML VIAL 5000 UNIT SC ×2 (05:11→14:32)
[2018-09-06 05:19] LABS: Absolute Neutrophil Count 1.3 X10^3/uL (2.0-7.7); Basophil# 0.02 X10^3/uL; Basophil% 0.7 % (0-1); Eosinophil# 0.09 X10^3/uL; Hematocrit 42.8 % (40-54); Hemoglobin 14.4 g/dl (13.0-16.5); Lymphocyte % 23.2 % (19-41); Mean Corp Hgb Conc 33.6 g/gl (32-36); Mean Corpuscular Hgb 33.6 pg (27.0-32.0); Mean Corpuscular Volume 99.8 fL (80-94); Mean Platelet Vol. 10.5 fl (6.2-12.0); Monocyte# 0.94 X10^3/uL; Monocyte% 31.1 % (0-10); Neutrophil # 1.27 X10^3/uL (2.7-7.7); Platelet Count 173 K/mm3 (150-450); RBC Distribution Width CV 11.6 % (11.6-14.6); RBC Distribution Width SD 42.2 fl (35.1-43.9); Red Blood Count 4.29 M/mm3 (4.6-6.2)
[2018-09-06 05:22] LABS: POSITIVE COUNT NO; POSITIVE DIFFERENTIAL NO; POSITIVE MORPHOLOGY NO
[2018-09-06 05:33] LABS: BUN 20 mg/dL (7-18); BUN/Creat Ratio 13.6 RATIO (10-20); Calcium,Total 8.4 mg/dL (8.5-10.1); Chloride 105 mmol/L (98-107); Cholesterol 121 mg/dL (200); Creatinine, Serum 1.47 mg/dL (0.70-1.30); EST Glomerular Filtration Rate 51 mL/min (>60); Est Glom Filt Rate - Afr Amer 62 mL/min (>60); Estimated Creatinine Clearance 59.15 ml/min; Glucose 117 mg/dL (74-106); High Density Lipoprotein 64 mg/dL; Phosphorus 2.2 mg/dL (2.5-4.9); Sodium Level 140 mmol/L (136-145); Triglycerides 81 mg/dL; Very Low Density Lipoprotein 16 mg/dL (5-40)
--- NOTE | 2018-09-06 07:28 | PCM.PN.SRG ---
Patient Problems: Active and Suspected Problems Partial small bowel obstruction (Acute) Subjective: less pain, no nausea, no flatus - Physical Exam General: Alert, Oriented x3, Cooperative Lungs: Clear to auscultation, Normal air movement Cardiovascular: Regular rate, No murmurs, No Ectopic Activity Abdomen: Non Tender, Bowel Sounds Not Present, Distended Vital Signs Temp Pulse Resp BP Pulse Ox 98.2 F 67 16 156/79 H 99 09/06/18 03:44 09/06/18 03:44 09/06/18 03:44 09/06/18 03:44 09/06/18 03:44 Oxygen Delivery Method Room Air Weight: 81.3 kg Body Mass Index (BMI) 21.8 Intake and Output for Last 24 Hours 09/04/18 09/05/18 09/06/18 23:59 23:59 23:59 Intake Total 1370 / 1370 2410 / 2410 1460 / 1460 Output Total 2600 / 2600 1750 / 1750 1100 / 1100 Balance -1230 / -1230 660 / 660 360 / 360 Laboratory Tests Past 24 Hrs 09/06/18 09/06/18 05:00 05:00 WBC 3.0 L RBC 4.29 L Hgb 14.4 Hct 42.8 MCV 99.8 H MCH 33.6 H MCHC 33.6 RDW 11.6 RDW Differential 42.2 Plt Count 173 MPV 10.5 Immature Gran % (Auto) 0.000 Neut % (Auto) 42.0 L Lymph % (Auto) 23.2 [place] % (Auto) 31.1 H Eos % (Auto) 3.0 Baso % (Auto) 0.7 Absolute Neuts (auto) 1.3 L Absolute Lymphs (auto) 0.70 L Total Counted Not Reportable Sodium 140 Potassium 4.0 Chloride 105 Carbon Dioxide 28.0 BUN 20 H Creatinine 1.47 H Estim Creat Clear Calc 59.15 Est GFR (MDRD) Af Amer 62 Est GFR (MDRD) Non-Af 51 L BUN/Creatinine Ratio 13.6 Glucose 117 H Calcium 8.4 L Phosphorus 2.2 L Albumin 3.0 L Triglycerides 81 Cholesterol 121 LDL Cholesterol 41 VLDL Cholesterol 16 HDL Cholesterol 64 Medical Necessity - Tobacco Use Smoking Status: Never smoker Assessment/Plan All Active Problems Partial small bowel obstruction (Acute) New onset atrial fibrillation (Resolved) Hypotension (Resolved) 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 Now with small bowel obstruction. CT scan suggests relatively distal small bowel obstruction. Given the nephrectomy, psoas resection, sigmoid resection and debulking, with recent colonoscopy demonstrated no anastomotic stricture, consisting obviously with adhesive small bowel obstruction. Given patient's complicated past history, we will plan for conservative management if possible. NG tube, IV fluid support, we will follow with serial abdominal exams and x-rays. This morning's x-ray demonstrates less gastric distention, slightly fewer loops of small bowel distention though one still distended loop and some gas in the colon. NG tube manipulated yesterday,and 500 cc of liquid along with air were evacuated from his stomach. He noted some improvement in her discomfort at that point in time. KUB this morning notes tube to have last hole in esophagus, but clinically it is functioning. do not see signs of recurrent mass causing obstruction on CT images and no mention by radiologic report. Comment of transition point near staple line between second and third portion of the duodenum. No mention operative report of duodenal involvement at initial surgery and review of staple location likely demonstrates this was stapled anastomosis of the right colon vasculature. Between resection that location, nephrectomy and so his resection, anticipate small bowel adhesion with transition at that location. Patient without clinical change, will repeat CT with oral contrast per NG tube. Discussed with patient that surgery would be planned last option. given his overall clinical status of protein wasting and failure for quick resoluion - on TPN.
--- NOTE | 2018-09-06 07:32 | CT_ITS ---
STUDY: CT ABDOMEN AND PELVIS WITH CONTRAST REASON FOR EXAM: Male, 62 years old. Prior colon resection. Currently receiving chemotherapy with nausea and vomiting. Abdominal pain. Small bowel obstruction. RADIATION DOSAGE (If Supplied By Facility): CTDIvol = ( 10.44 ) mGy, DLP = ( 522.80 ) mGycm TECHNIQUE: Transaxial images were obtained from the dome of the diaphragm to the symphysis pubis with oral contrast. 15 ml of Gastrografin contrast was administered. Sagittal and coronal images were reconstructed. Individualized dose optimization techniques were used for this CT. COMPARISON: Comparison is made with prior examination dated September 03, 2016. FINDINGS: A nasogastric tube is seen. Mild increased linear markings at the left lung base suggestive of linear scarring and/or atelectasis. The visualized portions of the heart are within normal limits. Normal liver. Normal gallbladder and extrahepatic biliary system. Normal spleen. Normal pancreas. Normal bilateral adrenal glands. The patient is status post right nephrectomy. Normal left kidney. There is a small hiatal hernia. There are dilated loops of the small intestine with a non-distended colon consistent with a small bowel obstruction. The patient is status post subtotal colectomy. Anastomosis is seen in the right mid abdomen. There is non-visualization of the appendix. Normal abdominal aorta. Normal inferior vena cava. Normal retroperitoneum. Normal urinary bladder. A small amount of free fluid is seen in the pelvis. Normal abdominal wall. There are diffuse degenerative changes of the visualized lumbar spine. Mild dextroscoliosis. CT/Abdomen/Pel W ORAL Cont Only IMPRESSION: Stable examination demonstrating small bowel obstruction. Electronically Signed: Moo Trinh MD at 11:00 EST Tel [phone], Service support ,
[2018-09-06 07:50] VITALS: O2SAT 93
[2018-09-06 08:05] VITALS: BP 141/81; PULSE 59; RESP 18; TEMP 36.8; O2SAT 97
--- NOTE | 2018-09-06 12:11 | CASEMGMT ---
Social Work Note Per dedicated regional driver questions, pt has completed Advanced Directives and has provided a copy to [facility]. SW checked echart and pt's chart and no copies on pt's chart. SW met with pt. SW introduced self and role at [facility]. Pt is alert and orientated x4. Pt confirms that he has completed advanced directives and that he is able to bring them to [facility] or have a family member bring in copies. Adriane Oliva FURNITURE INSPECTOR, SENIOR HRIS ANALYST
--- NOTE | 2018-09-06 12:11 | PCM.PN.HOSP ---
Patient Problems: Active and Suspected Problems Partial small bowel obstruction (Acute) Subjective: Patient had 3 loose bowel movements on night and after that he did not pass gas or stool. No fever or chills. Patient has NG tube draining bilious fluid. Patient states if NG tube suction is on he feels better but when suction is on hold, he feels fluid in the stomach building up and gets abdominal pain. No fever or chills. 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 Patient also had previous bowel obstruction about 1 month of surgery. Patient completed chemotherapy and currently on Keytruda Vitals/I&O's: Vital Signs Temp Pulse Resp BP Pulse Ox 98.2 F 59 L 18 141/81 H 97 09/06/18 08:05 09/06/18 08:05 09/06/18 08:05 09/06/18 08:05 09/06/18 08:05 Oxygen Delivery Method Room Air Weight: 179 lb 3.773 oz Body Mass Index (BMI) 21.8 Intake and Output for Last 24 Hours 09/04/18 09/05/18 09/06/18 23:59 23:59 23:59 Intake Total 1370 / 1370 2410 / 2410 2058 / 2058 Output Total 2600 / 2600 1750 / 1750 1950 / 1950 Balance -1230 / -1230 660 / 660 109 / 109 General: Alert, Oriented x3, Cooperative HEENT: Atraumatic, PERRLA, EOMI, Normocephalic Neck: Supple, No JVD, Negative Carotid Bruits Lungs: Clear to auscultation, Normal air movement, No rhonchi, No wheeze, No rales, - - Right-sided MediPort. Cardiovascular: Regular rate, Normal S1, Normal S2, No murmurs Abdomen: Bowel Sounds Present, Soft, Non Tender, Non-Distended, Hypoactive Bowel Sounds Extremities: No edema, Capillary Refill Less than 3 Seconds Skin: No rashes, No breakdown Musculoskeletal: No Tenderness to Palpation of Joints or Extremities, Arthritic Changes, Muscle Wasting Neurological: Cranial nerves II-XII grossly intact Psych/Mental Status: Normal Affect, Appropriate Laboratory Results 09/06/18 05:00: WBC 3.0 L, RBC 4.29 L, Hgb 14.4, Hct 42.8, MCV 99.8 H, MCH 33.6 H, MCHC 33.6, RDW 11.6, RDW Differential 42.2, Plt Count 173, MPV 10.5, Immature Gran % (Auto) 0.000, Neut % (Auto) 42.0 L, Lymph % (Auto) 23.2, [place] % (Auto) 31.1 H, Eos % (Auto) 3.0, Baso % (Auto) 0.7, Absolute Neuts (auto) 1.3 L, Absolute Lymphs (auto) 0.70 L, Total Counted Not Reportable 09/06/18 05:00: Sodium 140, Potassium 4.0, Chloride 105, Carbon Dioxide 28.0, BUN 20 H, Creatinine 1.47 H, Estim Creat Clear Calc 59.15, Est GFR (MDRD) Af Amer 62, Est GFR (MDRD) Non-Af 51 L, BUN/Creatinine Ratio 13.6, Glucose 117 H, Calcium 8.4 L, Phosphorus 2.2 L, Albumin 3.0 L, Triglycerides 81, Cholesterol 121, LDL Cholesterol 41, VLDL Cholesterol 16, HDL Cholesterol 64 Current Medications Heparin Sodium (Porcine) (Heparin Na) 5,000 unit SC Q8 [facility] Last Admin: 09/06/18 05:11 Dose: 5,000 unit Hydralazine HCl (Apresoline Iv) 5 mg IV Q4H PRN PRN PRN Reason: SBP > 160 Multivitamins 10 ml/ Chromium/Copper/Manganese/Seleni/Zn 1 ml/ Folic Acid 1 mg/Famotidine 40 mg/ Amino Acids/Electrolytes 2,015.2 mls @ 84 mls/hr IV .Q24H [facility] Stop: 09/06/18 15:48 Last Admin: 09/05/18 17:22 Dose: 84 mls/hr Multivitamins 10 ml/ Chromium/Copper/Manganese/Seleni/Zn 1 ml/ Folic Acid 1 mg/Famotidine 40 mg/ Amino Acids/Electrolytes 2,015.2 mls @ 84 mls/hr IV .Q24H [facility] Stop: 09/07/18 15:59 Fat Emulsion Intravenous (Intralipid 20%) 250 mls @ 21 mls/hr IV .[id number] [facility] Stop: 09/07/18 03:54 Lorazepam (Ativan) 0.5 mg IV Q4H PRN PRN PRN Reason: RESTLESSNESS Last Admin: 09/05/18 23:14 Dose: 0.5 mg Magnesium Hydroxide (Milk Of Magnesia) 30 ml PO DAILY PRN PRN PRN Reason: Constipation Morphine Sulfate () 1 mg IV Q4H PRN PRN PRN Reason: PAIN Last Admin: 09/05/18 17:52 Dose: 1 mg Ondansetron HCl (Zofran) 4 mg IV Q6H PRN PRN PRN Reason: NAUSEA/VOMITING Last Admin: 09/05/18 17:53 Dose: 4 mg Prochlorperazine Edisylate (Compazine Iv) 5 mg IV Q4H PRN PRN PRN Reason: NAUSEA/VOMITING Last Admin: 09/05/18 15:21 Dose: 5 mg Sodium Chloride () 5 - 15 ml IV UD PRN PRN Reason: SALINE FLUSH Last Admin: 09/05/18 23:14 Dose: 10 ml Medical Necessity - Tobacco Use Smoking Status: Never smoker Assessment/Plan All Active Problems Partial small bowel obstruction (Acute) New onset atrial fibrillation (Resolved) Hypotension (Resolved) This is a 62 year old M with past medical history of stage 4 colon cancer status post colectomy, s/p right katelyn-colectomy, sigmoid resection, s/p chemotherapy, on immunotherapy with Keytruda, admitted with abdominal pain, nausea; vomiting. CT abdomen/pelvis showed partial small bowel obstruction. 1. Partial small bowel obstruction, on continuous suction, general surgery consulted, on conservative management, continue with gentle IV fluids, prn anti-emetics. on TPN -discussed with dietitian and pharmacist. Dr. Marx note reviewed. CT scan suggested distal small bowel obstruction. Patient is comfortable on NG tube suction. 2. Elevated Blood pressure, no diagnosis of hypertension, BP has been fluctuating, will continue to monitor, prn hydralazine, will continue to monitor 3. Stage IV colon cancer, s/p right katelyn-colectomy, sigmoid resection, on immunotherapy 4. The patient had subsequent exploration with sigmoid resection and s/p right kidney/ureter/psoas resection 5. DVT prophylaxis- Heparin SC Laboratory Results 09/06/18 05:00: WBC 3.0 L, RBC 4.29 L, Hgb 14.4, Hct 42.8, MCV 99.8 H, MCH 33.6 H, MCHC 33.6, RDW 11.6, RDW Differential 42.2, Plt Count 173, MPV 10.5, Immature Gran % (Auto) 0.000, Neut % (Auto) 42.0 L, Lymph % (Auto) 23.2, [place] % (Auto) 31.1 H, Eos % (Auto) 3.0, Baso % (Auto) 0.7, Absolute Neuts (auto) 1.3 L, Absolute Lymphs (auto) 0.70 L, Total Counted Not Reportable 09/06/18 05:00: Sodium 140, Potassium 4.0, Chloride 105, Carbon Dioxide 28.0, BUN 20 H, Creatinine 1.47 H, Estim Creat Clear Calc 59.15, Est GFR (MDRD) Af Amer 62, Est GFR (MDRD) Non-Af 51 L, BUN/Creatinine Ratio 13.6, Glucose 117 H, Calcium 8.4 L, Phosphorus 2.2 L, Albumin 3.0 L, Triglycerides 81, Cholesterol 121, LDL Cholesterol 41, VLDL Cholesterol 16, HDL Cholesterol 64 Clinical Impression(s) from Imaging Studies Abdomen/Pelvis CT 09/03/18 16:30 IMPRESSION: 1. Findings consistent with a significant partial small bowel obstruction with an abrupt transition in the posterior mid abdomen proximity to prior postsurgical change. There is no other demonstrated obstructing pathology, so this may reflect an adhesion. There is moderate distention of the stomach with gas and undigested food status. No free gas. 2. Mural thickening of the distal esophagus, which may reflect local esophagitis. 3. Prior right nephrectomy. There is mild left renal caliectasis. 4. Prior cholecystectomy. The appendix not visualized. 5. Very small volume free fluid in the posterior pelvic region. 6. Degenerative changes of the spine, including mild rightward subluxation of L3 on L4 and dextroscoliosis centered at L2-3. Abdomen X-Ray 09/06/18 05:00 IMPRESSION: Small bowel obstruction. The air fluid levels are more impressive on today's examination than were noted on September 04, [address] 09/06/18 07:32 IMPRESSION: Stable examination demonstrating small bowel obstruction. Code Visit Inpatient E&M: 80608 Subs Hosp L3
[2018-09-06 12:15] LABS: Bedside Glucose 185 mg/dL (70-110)
[2018-09-06 14:30] VITALS: BP 143/83; PULSE 66; RESP 18; TEMP 36.6; O2SAT 97
[2018-09-06] MEDS: Fat Emulsions 20% 250 ML IV (17:20)
[2018-09-06 17:41] LABS: Bedside Glucose 143 mg/dL (70-110)
[2018-09-06] MEDS: 0.9% NaCl Peripheral Flush Adult/Peds IV (20:01)
[2018-09-06] MEDS: LORazepam 2 MG/ML Syringe 0.5 MG IV (20:01)
[2018-09-06 20:06] VITALS: BP 134/73; PULSE 67; RESP 18; TEMP 36.8; O2SAT 96
--- NOTE | 2018-09-07 00:08 | RAD_ITS ---
STUDY: X-RAY - ABDOMEN/PELVIS REASON FOR EXAM: Male, 62 years old. NG tube placement TECHNIQUE: 1 view COMPARISON: None. FINDINGS: The tip of an NG tube is noted within the distal end of the esophagus. The stomach is mildly distended and there are distended loops of small bowel in the midabdomen. There are also degenerative changes of the lumbosacral spine. RAD/Abdomen Single View (Portable) IMPRESSION: NG tube tip is in the distal esophagus and not in the stomach. Electronically Signed: Kole Craft MD at 2:43 EST Tel , Service support ,
--- NOTE | 2018-09-07 00:10 | RAD_ITS ---
STUDY: X-RAY - ABDOMEN/PELVIS REASON FOR EXAM: Male, 62 years old. NG tube placement TECHNIQUE: 1 view COMPARISON: None. FINDINGS: The tip of an NG tube is in the stomach. Distended loops of small bowel in the midabdomen. Degenerative changes of the lumbosacral spine. I. Electronically Signed: Kole Craft MD at 2:42 EST Tel , Service support , RAD/Abdomen Single View (Portable)
[2018-09-07] MEDS: LORazepam 2 MG/ML Syringe 0.5 MG IV ×2 (00:55→22:35)
--- NOTE | 2018-09-07 01:03 | NURSING ---
NG ADVANCED, INITAL READ SHOWED NG WAS ABOVE THE STOMACH. ADVANCED AGAIN.
[2018-09-07 01:20] LABS: Bedside Glucose 173 mg/dL (70-110)
[2018-09-07 01:50] VITALS: BP 145/80; PULSE 65; RESP 18; TEMP 36.7; O2SAT 98
--- NOTE | 2018-09-07 05:00 | RAD_ITS ---
STUDY: X-RAY - ABDOMEN/PELVIS REASON FOR EXAM: Male, 62 years old. Small bowel obstruction TECHNIQUE: 4 views COMPARISON: 09/07/2018 done at 12:20 AM FINDINGS: There are numerous air-fluid levels. There is no free intraperitoneal air. A nasogastric tube is in place. There are degenerative changes of the lumbosacral spine and lumbar scoliosis with convexity to the right. No abnormal calcifications in the kidneys. RAD/Abd Inc Decub and/or Erect IMPRESSION: Small bowel obstruction with numerous air-fluid levels. A nasogastric tube is in place Electronically Signed: Kole Craft MD at 6:08 EST Tel , Service support ,
[2018-09-07 05:45] VITALS: BP 138/69; PULSE 69; RESP 16; TEMP 36.8; O2SAT 97
[2018-09-07 06:11] LABS: Absolute Lymphocyte Count 1.06 X10^3/ul (0.83-4.51); Absolute Neutrophil Count 1.8 X10^3/uL (2.0-7.7); Basophil# 0.02 X10^3/uL; Basophil% 0.5 % (0-1); Eosinophil# 0.19 X10^3/uL; Eosinophils% 4.9 % (0-5); Hematocrit 42.8 % (40-54); Hemoglobin 14.3 g/dl (13.0-16.5); Lymphocyte # 1.06 X10^3/ul (4.0); Lymphocyte % 27.2 % (19-41); Mean Corp Hgb Conc 33.4 g/gl (32-36); Mean Corpuscular Hgb 32.9 pg (27.0-32.0); Mean Corpuscular Volume 98.4 fL (80-94); Mean Platelet Vol. 9.7 fl (6.2-12.0); Monocyte# 0.83 X10^3/uL; Monocyte% 21.3 % (0-10); Neutrophil # 1.79 X10^3/uL (2.7-7.7); Neutrophil % 45.8 % (47-70); Platelet Count 162 K/mm3 (150-450); RBC Distribution Width SD 43.4 fl (35.1-43.9); Red Blood Count 4.35 M/mm3 (4.6-6.2); White Blood Count 3.9 K/mm3 (4.4-11.0)
[2018-09-07 06:13] LABS: POSITIVE COUNT NO; POSITIVE DIFFERENTIAL NO; POSITIVE MORPHOLOGY NO
[2018-09-07 06:30] LABS: Albumin, Serum 2.9 g/dL (3.2-5.0); BUN 22 mg/dL (7-18); BUN/Creat Ratio 16.1 RATIO (10-20); Calcium,Total 8.5 mg/dL (8.5-10.1); Chloride 103 mmol/L (98-107); Creatinine, Serum 1.37 mg/dL (0.70-1.30); EST Glomerular Filtration Rate 56 mL/min (>60); Est Glom Filt Rate - Afr Amer 67 mL/min (>60); Estimated Creatinine Clearance 63.46 ml/min; Glucose 136 mg/dL (74-106); Phosphorus 2.9 mg/dL (2.5-4.9); Potassium 3.8 mmol/L (3.5-5.1); Prealbumin 15.5 mg/dL (20.0-40.0); Sodium Level 138 mmol/L (136-145)
[2018-09-07 06:57] VITALS: O2SAT 94
[2018-09-07 07:05] LABS: Bedside Glucose 161 mg/dL (70-110)
--- NOTE | 2018-09-07 10:16 | PCM.PN.HOSP ---
Patient Problems: Active and Suspected Problems Partial small bowel obstruction (Acute) Subjective: Patient repeat KUB x-ray shows multiple small bowel loops distention and obstruction. Has NG tube. Denies abdominal pain. Passed small bowel gas last evening. No fever or chills. No tachycardia/tachypnea. Vitals/I&O's: Vital Signs Temp Pulse Resp BP Pulse Ox 98.2 F 69 16 138/69 H 94 09/07/18 05:45 09/07/18 05:45 09/07/18 05:45 09/07/18 05:45 09/07/18 06:57 Oxygen Delivery Method Room Air Weight: 179 lb 3.773 oz Body Mass Index (BMI) 21.8 Intake and Output for Last 24 Hours 09/05/18 09/06/18 09/07/18 23:59 23:59 23:59 Intake Total 2410 / 2410 2635 / 2635 1279 / 1279 Output Total 1750 / 1750 1950 / 1950 1700 / 1700 Balance 660 / 660 685 / 685 -421 / -421 General: Alert, Oriented x3, Cooperative HEENT: Atraumatic, PERRLA, EOMI, Normocephalic Neck: Supple, No JVD, Negative Carotid Bruits Lungs: Clear to auscultation, Normal air movement, No rhonchi, No wheeze, No rales Cardiovascular: Regular rate, Normal S1, Normal S2, No murmurs Abdomen: Bowel Sounds Present, Soft, Non Tender, Non-Distended, Hyperactive Bowel Sounds Extremities: No edema, Capillary Refill Less than 3 Seconds Skin: No rashes, No breakdown Musculoskeletal: No Tenderness to Palpation of Joints or Extremities, Arthritic Changes, Muscle Wasting Neurological: Cranial nerves II-XII grossly intact, Neuro grossly intact Psych/Mental Status: Normal Affect, Appropriate Laboratory Results 09/06/18 12:05: POC Glucose 185 H 09/06/18 17:34: POC Glucose 143 H 09/07/18 01:15: POC Glucose 173 H 09/07/18 05:51: POC Glucose 161 H 09/07/18 05:55: Sodium 138, Potassium 3.8, Chloride 103, Carbon Dioxide 26.0, BUN 22 H, Creatinine 1.37 H, Estim Creat Clear Calc 63.46, Est GFR (MDRD) Af Amer 67, Est GFR (MDRD) Non-Af 56 L, BUN/Creatinine Ratio 16.1, Glucose 136 H, Calcium 8.5, Phosphorus 2.9, Magnesium 2.0, Albumin 2.9 L, Prealbumin 15.5 L 09/07/18 05:55: WBC 3.9 L, RBC 4.35 L, Hgb 14.3, Hct 42.8, MCV 98.4 H, MCH 32.9 H, MCHC 33.4, RDW 12.0, RDW Differential 43.4, Plt Count 162, MPV 9.7, Immature Gran % (Auto) 0.300, Neut % (Auto) 45.8 L, Lymph % (Auto) 27.2, [place] % (Auto) 21.3 H, Eos % (Auto) 4.9, Baso % (Auto) 0.5, Absolute Neuts (auto) 1.8 L, Absolute Lymphs (auto) 1.06, Total Counted Not Reportable Current Medications Heparin Sodium (Porcine) (Heparin Na) 5,000 unit SC Q8 [facility] Last Admin: 09/07/18 04:33 Dose: Not Given Hydralazine HCl (Apresoline Iv) 5 mg IV Q4H PRN PRN PRN Reason: SBP > 160 Multivitamins 10 ml/ Chromium/Copper/Manganese/Seleni/Zn 1 ml/ Folic Acid 1 mg/Famotidine 40 mg/ Amino Acids/Electrolytes 2,015.2 mls @ 84 mls/hr IV .Q24H [facility] Stop: 09/07/18 15:59 Last Admin: 09/06/18 17:31 Dose: 84 mls/hr Lorazepam (Ativan) 0.5 mg IV Q4H PRN PRN PRN Reason: RESTLESSNESS Last Admin: 09/07/18 00:55 Dose: 0.5 mg Magnesium Hydroxide (Milk Of Magnesia) 30 ml PO DAILY PRN PRN PRN Reason: Constipation Morphine Sulfate () 1 mg IV Q4H PRN PRN PRN Reason: PAIN Last Admin: 09/05/18 17:52 Dose: 1 mg Ondansetron HCl (Zofran) 4 mg IV Q6H PRN PRN PRN Reason: NAUSEA/VOMITING Last Admin: 09/05/18 17:53 Dose: 4 mg Prochlorperazine Edisylate (Compazine Iv) 5 mg IV Q4H PRN PRN PRN Reason: NAUSEA/VOMITING Last Admin: 09/05/18 15:21 Dose: 5 mg Sodium Chloride () 5 - 15 ml IV UD PRN PRN Reason: SALINE FLUSH Last Admin: 09/06/18 20:01 Dose: 10 ml Medical Necessity - Tobacco Use Smoking Status: Never smoker Assessment/Plan All Active Problems Partial small bowel obstruction (Acute) New onset atrial fibrillation (Resolved) Hypotension (Resolved) This is a 62 year old M with past medical history of stage 4 colon cancer status post colectomy, s/p right katelyn-colectomy, sigmoid resection, s/p chemotherapy, on immunotherapy with Keytruda, admitted with abdominal pain, nausea; vomiting. CT abdomen/pelvis showed partial small bowel obstruction. 1. Partial small bowel obstruction, on continuous suction, general surgery consulted, on conservative management, continue with gentle IV fluids, prn anti-emetics. on TPN -discussed with dietitian and pharmacist. Dr. Marx note reviewed. CT scan suggested distal small bowel obstruction. Patient is comfortable on NG tube suction. Repeat daily KUBs does not show significant improvement on multiple loops of dilated small bowel. Probably patient need surgery although high risk for perioperative complication as patient has 2 extensive surgeries in the past with history of cancer and poor nutritional status . 2. Elevated Blood pressure, no diagnosis of hypertension, BP has been fluctuating, will continue to monitor, prn hydralazine, will continue to monitor 3. Stage IV colon cancer, s/p right katelyn-colectomy, sigmoid resection, on immunotherapy. Discussed with Dr. Ordoñez. He said patient was doing good on Keytruda for about 1-1/2 years. 4. The patient had subsequent exploration with sigmoid resection and s/p right kidney/ureter/psoas resection Severe protein calorie malnutrition, present since admission: On IV TPN. N.p.o. 5. DVT prophylaxis- Heparin SC Laboratory Results 09/06/18 12:05: POC Glucose 185 H 09/06/18 17:34: POC Glucose 143 H 09/07/18 01:15: POC Glucose 173 H 09/07/18 05:51: POC Glucose 161 H 09/07/18 05:55: Sodium 138, Potassium 3.8, Chloride 103, Carbon Dioxide 26.0, BUN 22 H, Creatinine 1.37 H, Estim Creat Clear Calc 63.46, Est GFR (MDRD) Af Amer 67, Est GFR (MDRD) Non-Af 56 L, BUN/Creatinine Ratio 16.1, Glucose 136 H, Calcium 8.5, Phosphorus 2.9, Magnesium 2.0, Albumin 2.9 L, Prealbumin 15.5 L 09/07/18 05:55: WBC 3.9 L, RBC 4.35 L, Hgb 14.3, Hct 42.8, MCV 98.4 H, MCH 32.9 H, MCHC 33.4, RDW 12.0, RDW Differential 43.4, Plt Count 162, MPV 9.7, Immature Gran % (Auto) 0.300, Neut % (Auto) 45.8 L, Lymph % (Auto) 27.2, [place] % (Auto) 21.3 H, Eos % (Auto) 4.9, Baso % (Auto) 0.5, Absolute Neuts (auto) 1.8 L, Absolute Lymphs (auto) 1.06, Total Counted Not Reportable Clinical Impression(s) from Imaging Studies Abdomen/Pelvis CT 09/03/18 16:30 IMPRESSION: 1. Findings consistent with a significant partial small bowel obstruction with an abrupt transition in the posterior mid abdomen proximity to prior postsurgical change. There is no other demonstrated obstructing pathology, so this may reflect an adhesion. There is moderate distention of the stomach with gas and undigested food status. No free gas. 2. Mural thickening of the distal esophagus, which may reflect local esophagitis. 3. Prior right nephrectomy. There is mild left renal caliectasis. 4. Prior cholecystectomy. The appendix not visualized. 5. Very small volume free fluid in the posterior pelvic region. 6. Degenerative changes of the spine, including mild rightward subluxation of L3 on L4 and dextroscoliosis centered at L2-3. Abdomen X-Ray 09/07/18 05:00 IMPRESSION: Small bowel obstruction with numerous air-fluid levels. A nasogastric tube is in place Code Visit Inpatient E&M: 77378 Subs Hosp L3
--- NOTE | 2018-09-07 10:20 | PN_ITS ---
Patient Problems: Active and Suspected Problems Partial small bowel obstruction (Acute) Subjective: Patient repeat KUB x-ray shows multiple small bowel loops distention and obstruction. Has NG tube. Denies abdominal pain. Passed small bowel gas last evening. No fever or chills. No tachycardia/tachypnea. Vitals/I&O's: Vital Signs Temp Pulse Resp BP Pulse Ox 98.2 F 69 16 138/69 H 94 09/07/18 05:45 09/07/18 05:45 09/07/18 05:45 09/07/18 05:45 09/07/18 06:57 Oxygen Delivery Method Room Air Weight: 179 lb 3.773 oz Body Mass Index (BMI) 21.8 Intake and Output for Last 24 Hours 09/05/18 09/06/18 09/07/18 23:59 23:59 23:59 Intake Total 2410 / 2410 2635 / 2635 1279 / 1279 Output Total 1750 / 1750 1950 / 1950 1700 / 1700 Balance 660 / 660 685 / 685 -421 / -421 General: Alert, Oriented x3, Cooperative HEENT: Atraumatic, PERRLA, EOMI, Normocephalic Neck: Supple, No JVD, Negative Carotid Bruits Lungs: Clear to auscultation, Normal air movement, No rhonchi, No wheeze, No rales Cardiovascular: Regular rate, Normal S1, Normal S2, No murmurs Abdomen: Bowel Sounds Present, Soft, Non Tender, Non-Distended, Hyperactive Bowel Sounds Extremities: No edema, Capillary Refill Less than 3 Seconds Skin: No rashes, No breakdown Musculoskeletal: No Tenderness to Palpation of Joints or Extremities, Arthritic Changes, Muscle Wasting Neurological: Cranial nerves II-XII grossly intact, Neuro grossly intact Psych/Mental Status: Normal Affect, Appropriate Laboratory Results 09/06/18 12:05: POC Glucose 185 H 09/06/18 17:34: POC Glucose 143 H 09/07/18 01:15: POC Glucose 173 H 09/07/18 05:51: POC Glucose 161 H 09/07/18 05:55: Sodium 138, Potassium 3.8, Chloride 103, Carbon Dioxide 26.0, BUN 22 H, Creatinine 1.37 H, Estim Creat Clear Calc 63.46, Est GFR (MDRD) Af Amer 67, Est GFR (MDRD) Non-Af 56 L, BUN/Creatinine Ratio 16.1, Glucose 136 H, Calcium 8.5, Phosphorus 2.9, Magnesium 2.0, Albumin 2.9 L, Prealbumin 15.5 L 09/07/18 05:55: WBC 3.9 L, RBC 4.35 L, Hgb 14.3, Hct 42.8, MCV 98.4 H, MCH 32.9 H, MCHC 33.4, RDW 12.0, RDW Differential 43.4, Plt Count 162, MPV 9.7, Immature Gran % (Auto) 0.300, Neut % (Auto) 45.8 L, Lymph % (Auto) 27.2, [place] % (Auto) 21.3 H, Eos % (Auto) 4.9, Baso % (Auto) 0.5, Absolute Neuts (auto) 1.8 L, Absolute Lymphs (auto) 1.06, Total Counted Not Reportable Current Medications Heparin Sodium (Porcine) (Heparin Na) 5,000 unit SC Q8 [facility] Last Admin: 09/07/18 04:33 Dose: Not Given Hydralazine HCl (Apresoline Iv) 5 mg IV Q4H PRN PRN PRN Reason: SBP > 160 Multivitamins 10 ml/ Chromium/Copper/Manganese/Seleni/Zn 1 ml/ Folic Acid 1 mg/Famotidine 40 mg/ Amino Acids/Electrolytes 2,015.2 mls @ 84 mls/hr IV .Q24H [facility] Stop: 09/07/18 15:59 Last Admin: 09/06/18 17:31 Dose: 84 mls/hr Lorazepam (Ativan) 0.5 mg IV Q4H PRN PRN PRN Reason: RESTLESSNESS Last Admin: 09/07/18 00:55 Dose: 0.5 mg Magnesium Hydroxide (Milk Of Magnesia) 30 ml PO DAILY PRN PRN PRN Reason: Constipation Morphine Sulfate () 1 mg IV Q4H PRN PRN PRN Reason: PAIN Last Admin: 09/05/18 17:52 Dose: 1 mg Ondansetron HCl (Zofran) 4 mg IV Q6H PRN PRN PRN Reason: NAUSEA/VOMITING Last Admin: 09/05/18 17:53 Dose: 4 mg Prochlorperazine Edisylate (Compazine Iv) 5 mg IV Q4H PRN PRN PRN Reason: NAUSEA/VOMITING Last Admin: 09/05/18 15:21 Dose: 5 mg Sodium Chloride () 5 - 15 ml IV UD PRN PRN Reason: SALINE FLUSH Last Admin: 09/06/18 20:01 Dose: 10 ml Medical Necessity - Tobacco Use Smoking Status: Never smoker Assessment/Plan All Active Problems Partial small bowel obstruction (Acute) New onset atrial fibrillation (Resolved) Hypotension (Resolved) This is a 62 year old M with past medical history of stage 4 colon cancer status post colectomy, s/p right katelyn-colectomy, sigmoid resection, s/p chemotherapy, on immunotherapy with Keytruda, admitted with abdominal pain, nausea; vomiting. CT abdomen/pelvis showed partial small bowel obstruction. 1. Partial small bowel obstruction, on continuous suction, general surgery co nsulted, on conservative management, continue with gentle IV fluids, prn anti- emetics. on TPN -discussed with dietitian and pharmacist. Dr. Marx note reviewed. CT scan suggested distal small bowel obstruction. Patient is comfortable on NG tube suction. Repeat daily KUBs does not show significant improvement on multiple loops of dilated small bowel. Probably patient need surgery although high risk for perioperative complication as patient has 2 extensive surgeries in the past with history of cancer and poor nutritional status . 2. Elevated Blood pressure, no diagnosis of hypertension, BP has been fluctuating, will continue to monitor, prn hydralazine, will continue to monitor 3. Stage IV colon cancer, s/p right katelyn-colectomy, sigmoid resection, on immun otherapy. Discussed with Dr. Ordoñez. He said patient was doing good on Keytruda for about 1-1/2 years. 4. The patient had subsequent exploration with sigmoid resection and s/p right kidney/ureter/psoas resection Severe protein calorie malnutrition, present since admission: On IV TPN. N.p.o. 5. DVT prophylaxis- Heparin SC Laboratory Results 09/06/18 12:05: POC Glucose 185 H 09/06/18 17:34: POC Glucose 143 H 09/07/18 01:15: POC Glucose 173 H 09/07/18 05:51: POC Glucose 161 H 09/07/18 05:55: Sodium 138, Potassium 3.8, Chloride 103, Carbon Dioxide 26.0, BUN 22 H, Creatinine 1.37 H, Estim Creat Clear Calc 63.46, Est GFR (MDRD) Af Amer 67, Est GFR (MDRD) Non-Af 56 L, BUN/Creatinine Ratio 16.1, Glucose 136 H, Calcium 8.5, Phosphorus 2.9, Magnesium 2.0, Albumin 2.9 L, Prealbumin 15.5 L 09/07/18 05:55: WBC 3.9 L, RBC 4.35 L, Hgb 14.3, Hct 42.8, MCV 98.4 H, MCH 32.9 H, MCHC 33.4, RDW 12.0, RDW Differential 43.4, Plt Count 162, MPV 9.7, Immature Gran % (Auto) 0.300, Neut % (Auto) 45.8 L, Lymph % (Auto) 27.2, [place] % (Auto) 21.3 H, Eos % (Auto) 4.9, Baso % (Auto) 0.5, Absolute Neuts (auto) 1.8 L, Absolute Lymphs (auto) 1.06, Total Counted Not Reportable Clinical Impression(s) from Imaging Studies Abdomen/Pelvis CT 09/03/18 16:30 IMPRESSION: 1. Findings consistent with a significant partial small bowel obstruction with an abrupt transition in the posterior mid abdomen proximity to prior postsurgical change. There is no other demonstrated obstructing pathology, so this may reflect an adhesion. There is moderate distention of the stomach with gas and undigested food status. No free gas. 2. Mural thickening of the distal esophagus, which may reflect local esophagitis. 3. Prior right nephrectomy. There is mild left renal caliectasis. 4. Prior cholecystectomy. The appendix not visualized. 5. Very small volume free fluid in the posterior pelvic region. 6. Degenerative changes of the spine, including mild rightward subluxation of L3 on L4 and dextroscoliosis centered at L2-3. Abdomen X-Ray 09/07/18 05:00 IMPRESSION: Small bowel obstruction with numerous air-fluid levels. A nasogastric tube is in place Code Visit Inpatient E&M: 60397 [facility] Hosp L3
[2018-09-07 11:30] VITALS: BP 114/72; PULSE 71; RESP 18; TEMP 37.3; O2SAT 96
[2018-09-07 12:56] LABS: Bedside Glucose 152 mg/dL (70-110)
[2018-09-07 15:16] VITALS: BP 121/59; PULSE 75; RESP 18; TEMP 36.6; O2SAT 97
--- NOTE | 2018-09-07 15:48 | PCM.PN.SRG ---
Patient Problems: Active and Suspected Problems Partial small bowel obstruction (Acute) - Physical Exam General: Alert, Oriented x3, Cooperative Lungs: Clear to auscultation, Normal air movement Cardiovascular: Regular rate, No murmurs Abdomen: Soft, Non Tender, Bowel Sounds Not Present Vital Signs Temp Pulse Resp BP Pulse Ox 97.8 F 75 18 121/59 H 97 09/07/18 15:16 09/07/18 15:16 09/07/18 15:16 09/07/18 15:16 09/07/18 15:16 Oxygen Delivery Method Room Air Weight: 81.3 kg Body Mass Index (BMI) 21.8 Intake and Output for Last 24 Hours 09/05/18 09/06/18 09/07/18 23:59 23:59 23:59 Intake Total 2410 / 2410 2635 / 2635 1718 / 1718 Output Total 1750 / 1750 1950 / 1950 2700 / 2700 Balance 660 / 660 685 / 685 -982 / -982 Laboratory Tests Past 24 Hrs 09/07/18 09/07/18 05:55 05:55 WBC 3.9 L RBC 4.35 L Hgb 14.3 Hct 42.8 MCV 98.4 H MCH 32.9 H MCHC 33.4 RDW 12.0 RDW Differential 43.4 Plt Count 162 MPV 9.7 Immature Gran % (Auto) 0.300 Neut % (Auto) 45.8 L Lymph % (Auto) 27.2 [place]ander % (Auto) 21.3 H Eos % (Auto) 4.9 Baso % (Auto) 0.5 Absolute Neuts (auto) 1.8 L Absolute Lymphs (auto) 1.06 Total Counted Not Reportable Sodium 138 Potassium 3.8 Chloride 103 Carbon Dioxide 26.0 BUN 22 H Creatinine 1.37 H Estim Creat Clear Calc 63.46 Est GFR (MDRD) Af Amer 67 Est GFR (MDRD) Non-Af 56 L BUN/Creatinine Ratio 16.1 Glucose 136 H Calcium 8.5 Phosphorus 2.9 Magnesium 2.0 Albumin 2.9 L Prealbumin 15.5 L POC Glucose 09/07/18 09/07/18 09/07/18 12:44 05:51 01:15 POC Glucose 152 H 161 H 173 H 09/06/18 17:34 POC Glucose 143 H Medical Necessity - Tobacco Use Smoking Status: Never smoker Assessment/Plan All Active Problems Partial small bowel obstruction (Acute) New onset atrial fibrillation (Resolved) Hypotension (Resolved) 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 Now with small bowel obstruction. CT scan suggests relatively distal small bowel obstruction. Given the nephrectomy, psoas resection, sigmoid resection and debulking, with recent colonoscopy demonstrated no anastomotic stricture, consisting obviously with adhesive small bowel obstruction. Given patient's complicated past history, we will plan for conservative management if possible. NG tube, IV fluid support, we will follow with serial abdominal exams and x-rays. This morning's x-ray demonstrates less gastric distention, slightly fewer loops of small bowel distention. in discussions with the patient this morning, he did not wish to consider exploration today. We will therefore plan for repeat KUB in the morning. If still no flatus and no improvement in the x-ray will again consider exploration tomorrow. given his overall clinical status of protein wasting and failure for quick resolution - on TPN.
[2018-09-07 18:36] LABS: Bedside Glucose 142 mg/dL (70-110)
[2018-09-07 19:02] LABS: AST(SGOT) 14 U/L (15-37); Alanine Aminotransfer ALT/SGPT 18 U/L (16-61); Alkaline Phosphatase 55 U/L (45-117); Bilirubin, Direct 0.15 mg/dL (0.00-0.30)
--- NOTE | 2018-09-07 20:16 | NURSING ---
NO CHANGE @ 1800 FROM PREVIOUS ASSESSMENT-PT MAKING LAPS IN CORTES AT THIS TIME, GAIT IS STEADY-PT DENIES NEED FOR NAUSEA/PAIN MEDS-PASSES SCANT AMOUNT OF FLATUS WHEN UP
[2018-09-07 22:25] VITALS: BP 123/61; PULSE 74; RESP 18; TEMP 37.2; O2SAT 99
[2018-09-07] MEDS: Heparin Injection (Vial) 5,000 UNIT/ML VIAL 5000 UNIT SC (22:29)
[2018-09-07] MEDS: 0.9% NaCl Peripheral Flush Adult/Peds IV (22:35)
[2018-09-08] VITALS (10 sets, daily range): BP systolic 86–152; BP diastolic 49–80; PULSE 55–94; RESP 16–18; TEMP 36.2–37.3; O2SAT 95–100; BMI 21.8
--- NOTE | 2018-09-08 | MASS_PTH ---
PATIENT: SIMON PEACOCK LOC: MS3 U#:[id number] AGE/SX: 62/M ROOM: HI321 RE09/03/[address]: Dr. Lisa Glass MD : [id number] BED: 1 DIS: 09/27/2018 SPEC #: [id number] RECD: 09/08/18 15:59 STATUS: FRANKLIN REQ #: [id number] JOEL: 09/08/18 00:[address]: Simon Santamaria DEPT: SURGICAL PATHOLOGY RECD BY: Marce Cleary ENTERED: 09/09/18 07:40 SP TYPE: Mass OTHR DR: MD Dr. Akira Khan MD No Primary Care Phys Tissues: A - Small intestine biopsy B - Small intestine biopsy C - Small intestine biopsy Procedures: Frozen Section (charge) Surgery Specimen Level III Surgery Specimen Level IV Surgery Specimen Level V HEADER OPERATION: Exploratory laparoscopy converted to open PRE-OP DIAGNOSIS: Small bowel obstruction TISSUE SUBMITTED: A - Small bowel nodule (sent for frozen at 1554), B - Small bowel nodule, C - Small bowel, staple line FROZEN SECTION DIAGNOSIS A. Small bowel nodule, biopsy: Fibrovascular nodule. No evidence of carcinoma. AM:khris 09/08/18 MICROSCOPIC DIAGNOSIS A. Small bowel nodule, biopsy: A piece of fibrovascular tissue with reactive changes, negative for malignancy. B. Small bowel nodule: A piece of fibroadipose, fibrovascular and fibromuscular tissue with reactive changes and chronic inflammation. Negative for malignancy. C. Small bowel and staple line: Serosal fibrovascular nodule with reactive changes and chronic inflammation. Mucosal and submucosal congestion and hemorrhage. Transmural congestion. Staple line - serosal reactive changes and chronic inflammation. SJ:khris 09/13/18 MICROSCOPIC DESCRIPTION Slides are reviewed. GROSS DESCRIPTION A - Received fresh for frozen section diagnosis labeled with the patient's name is a specimen designated small bowel nodule. The specimen consists of a piece of alejandro soft tissue measuring 6 x 0.2 x 0.1 cm. The specimen is bisected and submitted in one cassette for frozen section diagnosis. / AM: 09/08/18 B - Received in fixative is one container labeled with the patient's name and designated small bowel nodule. The specimen consists of a piece of adipose tissue with focal indurated area measuring 1.5 x 1 x 0.5 cm. The specimen is bisected and submitted entirely in one cassette. / SJ: 09/09/18 C - Received in fixative is one container labeled with the patient's name and designated small bowel staple line. The specimen consists of a segment of small bowel measuring 19 cm in length and 3 to 6 cm in diameter. The serosal surface is focally ragged. Both resection margins are opened. 6 cm away from one resection margin show focal area of constriction. Close to the constricted area an indurated area is noted on the serosal surface measuring 1.5 x 1 cm. No mucosal lesion is identified. The lumen contains a small amount of fecal material. Also present in the container is a staple line measuring 5 x 2 x 1 cm. Sections will be submitted after overnight fixation. / SJ: 09/09/18 [employer] Officer sections are submitted in seven cassettes as follows: 1 - staple line, 2 - resection margins, 3 & 4 - indurated area on the serosal surface with underlying bowel wall, 5 - dilated segment of small bowel, 6 - nondilated segment of small bowel, 7 - mesenteric tissue. / SJ: 09/10/18 TC:5 CPT: 46883 x2, 26275, 90201, 56229
[2018-09-08 00:25] LABS: Bedside Glucose 147 mg/dL (70-110)
--- NOTE | 2018-09-08 03:40 | NURSING ---
NG DISPLACED AGAIN EVIDENCED BY AUDIBLE SUCTION NOISES THROUGH HIS MOUTH AND THE YASIR ON THE NG WAS NEAR HIS ABDOMEN. PER PT'S REQUEST, NG WAS ADVANCED. KUB HAS BEEN ORDERED AND PLACEMENT WILL BE CHECKED.
[2018-09-08] MEDS: LORazepam 2 MG/ML Syringe 0.5 MG IV ×2 (04:01→18:26)
[2018-09-08] MEDS: 0.9% NaCl Peripheral Flush Adult/Peds IV ×3 (04:01→20:43)
[2018-09-08] MEDS: Heparin Injection (Vial) 5,000 UNIT/ML VIAL 5000 UNIT SC ×2 (05:54→21:51)
[2018-09-08 06:00] LABS: Bedside Glucose 151 mg/dL (70-110)
--- NOTE | 2018-09-08 06:00 | RAD_ITS ---
STUDY: X-RAY - ABDOMEN/PELVIS REASON FOR EXAM: Male, 62 years old. NG tube placement TECHNIQUE: 4 views COMPARISON: September 07, 2018 FINDINGS: There are numerous air-fluid levels with an NG tube in place with the tip now in the gastric fundal region. Previously the tip was in the antrum. There is a lumbar scoliosis with convexity to the right and degenerative changes involving the midlumbosacral region. No abnormal calcifications.. RAD/Abd Inc Decub and/or Erect IMPRESSION: A mechanical small bowel obstruction. The tip of the nasogastric tube is in the stomach. Electronically Signed: Kole Craft MD at 4:35 EST Tel , Service support ,
[2018-09-08 06:23] LABS: Absolute Lymphocyte Count 0.63 X10^3/ul (0.83-4.51); Absolute Neutrophil Count 2.2 X10^3/uL (2.0-7.7); Basophil# 0.04 X10^3/uL; Basophil% 0.9 % (0-1); Eosinophil# 0.13 X10^3/uL; Hematocrit 46.1 % (40-54); Hemoglobin 15.3 g/dl (13.0-16.5); Lymphocyte # 0.63 X10^3/ul (4.0); Lymphocyte % 14.4 % (19-41); Mean Corp Hgb Conc 33.2 g/gl (32-36); Mean Corpuscular Volume 99.6 fL (80-94); Mean Platelet Vol. 9.8 fl (6.2-12.0); Monocyte# 1.37 X10^3/uL; Monocyte% 31.4 % (0-10); Neutrophil # 2.18 X10^3/uL (2.7-7.7); Neutrophil % 49.8 % (47-70); Platelet Count 187 K/mm3 (150-450); RBC Distribution Width CV 11.9 % (11.6-14.6); RBC Distribution Width SD 42.9 fl (35.1-43.9); Red Blood Count 4.63 M/mm3 (4.6-6.2); White Blood Count 4.4 K/mm3 (4.4-11.0)
[2018-09-08 06:32] LABS: POSITIVE COUNT NO; POSITIVE DIFFERENTIAL NO; POSITIVE MORPHOLOGY NO
[2018-09-08 06:42] LABS: BUN 24 mg/dL (7-18); BUN/Creat Ratio 16.9 RATIO (10-20); Calcium,Total 8.3 mg/dL (8.5-10.1); Chloride 103 mmol/L (98-107); Creatinine, Serum 1.42 mg/dL (0.70-1.30); EST Glomerular Filtration Rate 53 mL/min (>60); Est Glom Filt Rate - Afr Amer 65 mL/min (>60); Estimated Creatinine Clearance 61.23 ml/min; Glucose 137 mg/dL (74-106); Sodium Level 137 mmol/L (136-145)
--- NOTE | 2018-09-08 07:49 | EKG12_ITS ---
Test Reason : PRE OP Blood Pressure : / mmHG Vent. Rate : 083 BPM Atrial Rate : 083 BPM P-R Int : 168 ms QRS Dur : 098 ms QT Int : 350 ms P-R-T Axes : 089 060 088 degrees QTc Int : 411 ms Normal sinus rhythm Normal ECG Confirmed by TRACIE ALFARO, REBECA ([id number]), city editor MIKALA NICOLE ([id number]) on 09/10/2018 2:15:37 PM Referred By: Josep Allen Confirmed By:REBECA HODGES MD
[2018-09-08 10:33] LABS: Partial Thromboplast Time 30.8 Seconds (24.1-36.2)
--- NOTE | 2018-09-08 11:16 | NURSING ---
attempt to call report to ac unsuccessful, all nurses in rooms with pts
--- NOTE | 2018-09-08 11:25 | NURSING ---
report called to rolly in AC
[2018-09-08 11:41] LABS: Bedside Glucose 140 mg/dL (70-110)
--- NOTE | 2018-09-08 12:07 | PCM.PN.HOSP ---
Patient Problems: Active and Suspected Problems Partial small bowel obstruction (Acute) Subjective: Patient did not had improvement with a small bowel obstruction as per the KUBs. Still has NG tube. Scheduled for exploratory laparotomy today. No fever or chills. No tachycardia. No hypoxia. Vitals/I&O's: Vital Signs Temp Pulse Resp BP Pulse Ox 99.1 F 88 18 115/67 98 09/08/18 10:40 09/08/18 10:40 09/08/18 10:40 09/08/18 10:40 09/08/18 10:40 Oxygen Delivery Method Room Air Weight: 179 lb 3.773 oz Body Mass Index (BMI) 21.8 Intake and Output for Last 24 Hours 09/06/18 09/07/18 09/08/18 23:59 23:59 23:59 Intake Total 2635 / 2635 205 / 2055 2440 / 2440 Output Total 1950 / 1950 3200 / 3200 2300 / 2300 Balance 685 / 685 -1144 / -1144 140 / 140 General: Alert, Oriented x3, Cooperative HEENT: Atraumatic, PERRLA, EOMI, Normocephalic Neck: Supple, No JVD, Negative Carotid Bruits Lungs: Clear to auscultation, No rhonchi, No wheeze, No rales, Diminished - Air entry diminished in bilateral lung bases Cardiovascular: Regular rate, Regular Rhythm, Normal S1, Normal S2, No murmurs Abdomen: Bowel Sounds Present, Soft, Non Tender, Non-Distended, Bowel Sounds Not Present Extremities: No edema, Capillary Refill Less than 3 Seconds Skin: No rashes, No breakdown Musculoskeletal: No Tenderness to Palpation of Joints or Extremities, Muscle Wasting Neurological: Cranial nerves II-XII grossly intact, Neuro grossly intact Psych/Mental Status: Normal Affect, Appropriate Laboratory Results 09/07/18 05:55: Total Bilirubin 0.40, Direct Bilirubin 0.15, AST 14 L, ALT 18, Alkaline Phosphatase 55, Total Protein 6.0 L, Albumin 3.0 L, Globulin 3.0 09/07/18 12:44: POC Glucose 152 H 09/07/18 18:31: POC Glucose 142 H 09/08/18 00:22: POC Glucose 147 H 09/08/18 05:46: Sodium 137, Potassium 4.0, Chloride 103, Carbon Dioxide 27.0, BUN 24 H, Creatinine 1.42 H, Estim Creat Clear Calc 61.23, Est GFR (MDRD) Af Amer 65, Est GFR (MDRD) Non-Af 53 L, BUN/Creatinine Ratio 16.9, Glucose 137 H, Calcium 8.3 L, Phosphorus 3.0, Albumin 3.0 L 09/08/18 05:46: WBC 4.4, RBC 4.63, Hgb 15.3, Hct 46.1, MCV 99.6 H, MCH 33.0 H, MCHC 33.2, RDW 11.9, RDW Differential 42.9, Plt Count 187, MPV 9.8, Immature Gran % (Auto) 0.500, Neut % (Auto) 49.8, Lymph % (Auto) 14.4 L, [place] % (Auto) 31.4 H, Eos % (Auto) 3.0, Baso % (Auto) 0.9, Absolute Neuts (auto) 2.2, Absolute Lymphs (auto) 0.63 L, Total Counted Not Reportable 09/08/18 05:52: POC Glucose 151 H 09/08/18 08:10: APTT 30.8 09/08/18 11:30: POC Glucose 140 H Current Medications Dextrose (D50w Syringe) 0 gm IV X1 PRN; Protocol PRN Reason: Hypoglycemia Glucagon () 1 mg IM .X1 PRN PRN Reason: Hypoglycemia Heparin Sodium (Porcine) (Heparin Na) 5,000 unit SC Q8 OLINDA Last Admin: 09/08/18 05:54 Dose: 5,000 unit Hydralazine HCl (Apresoline Iv) 5 mg IV Q4H PRN PRN PRN Reason: SBP > 160 Multivitamins 10 ml/ Chromium/Copper/Manganese/Seleni/Zn 1 ml/ Folic Acid 1 mg/Famotidine 40 mg/ Amino Acids/Electrolytes 2,015.2 mls @ 84 mls/hr IV .Q24H OLINDA Stop: 09/08/18 15:59 Last Admin: 09/07/18 17:03 Dose: 84 mls/hr Insulin Human Lispro (Humalog Kwikpen (Bkc)) 0 unit SQ Q6 OLINDA; Protocol Last Admin: 09/08/18 05:55 Dose: Not Given Lorazepam (Ativan) 0.5 mg IV Q4H PRN PRN PRN Reason: RESTLESSNESS Last Admin: 09/08/18 04:01 Dose: 0.5 mg Magnesium Hydroxide (Milk Of Magnesia) 30 ml PO DAILY PRN PRN PRN Reason: Constipation Morphine Sulfate () 1 mg IV Q4H PRN PRN PRN Reason: PAIN Last Admin: 09/05/18 17:52 Dose: 1 mg Ondansetron HCl (Zofran) 4 mg IV Q6H PRN PRN PRN Reason: NAUSEA/VOMITING Last Admin: 09/05/18 17:53 Dose: 4 mg Prochlorperazine Edisylate (Compazine Iv) 5 mg IV Q4H PRN PRN PRN Reason: NAUSEA/VOMITING Last Admin: 09/05/18 15:21 Dose: 5 mg Sodium Chloride () 5 - 15 ml IV UD PRN PRN Reason: SALINE FLUSH Last Admin: 09/08/18 04:01 Dose: 10 ml Medical Necessity - Tobacco Use Smoking Status: Never smoker Assessment/Plan All Active Problems Partial small bowel obstruction (Acute) New onset atrial fibrillation (Resolved) Hypotension (Resolved) This is a 62 year old M with past medical history of stage 4 colon cancer status post colectomy, s/p right katelyn-colectomy, sigmoid resection, s/p chemotherapy, on immunotherapy with Keytruda, admitted with abdominal pain, nausea; vomiting. CT abdomen/pelvis showed partial small bowel obstruction. 1. Partial small bowel obstruction, on continuous suction, general surgery consulted, on conservative management, continue with gentle IV fluids, prn anti-emetics. on TPN -discussed with dietitian and pharmacist. Dr. Marx note reviewed. CT scan suggested distal small bowel obstruction. Patient is comfortable on NG tube suction. Repeat daily KUBs does not show significant improvement on multiple loops of dilated small bowel but gastric distention is less. Scheduled for surgery today. Anticipation of high risk for perioperative complication as patient has 2 extensive surgeries in the past with history of cancer and poor nutritional status . 2. Elevated Blood pressure, no diagnosis of hypertension, BP has been fluctuating, will continue to monitor, prn hydralazine, will continue to monitor 3. Stage IV colon cancer, s/p right katelyn-colectomy, sigmoid resection, on immunotherapy. Discussed with Dr. Ordoñez. He said patient was doing good on Keytruda for about 1-1/2 years. 4. The patient had subsequent exploration with sigmoid resection and s/p right kidney/ureter/psoas resection Severe protein calorie malnutrition, present since admission: On IV TPN. N.p.o. 5. DVT prophylaxis- Heparin SC Laboratory Results 09/07/18 05:55: Total Bilirubin 0.40, Direct Bilirubin 0.15, AST 14 L, ALT 18, Alkaline Phosphatase 55, Total Protein 6.0 L, Albumin 3.0 L, Globulin 3.0 09/07/18 18:31: POC Glucose 142 H 09/08/18 00:22: POC Glucose 147 H 09/08/18 05:46: Sodium 137, Potassium 4.0, Chloride 103, Carbon Dioxide 27.0, BUN 24 H, Creatinine 1.42 H, Estim Creat Clear Calc 61.23, Est GFR (MDRD) Af Amer 65, Est GFR (MDRD) Non-Af 53 L, BUN/Creatinine Ratio 16.9, Glucose 137 H, Calcium 8.3 L, Phosphorus 3.0, Albumin 3.0 L 09/08/18 05:46: WBC 4.4, RBC 4.63, Hgb 15.3, Hct 46.1, MCV 99.6 H, MCH 33.0 H, MCHC 33.2, RDW 11.9, RDW Differential 42.9, Plt Count 187, MPV 9.8, Immature Gran % (Auto) 0.500, Neut % (Auto) 49.8, Lymph % (Auto) 14.4 L, [place] % (Auto) 31.4 H, Eos % (Auto) 3.0, Baso % (Auto) 0.9, Absolute Neuts (auto) 2.2, Absolute Lymphs (auto) 0.63 L, Total Counted Not Reportable 09/08/18 05:52: POC Glucose 151 H 09/08/18 08:10: APTT 30.8 09/08/18 11:30: POC Glucose 140 H Clinical Impression(s) from Imaging Studies Abdomen/Pelvis CT 09/03/18 16:30 IMPRESSION: 1. Findings consistent with a significant partial small bowel obstruction with an abrupt transition in the posterior mid abdomen proximity to prior postsurgical change. There is no other demonstrated obstructing pathology, so this may reflect an adhesion. There is moderate distention of the stomach with gas and undigested food status. No free gas. 2. Mural thickening of the distal esophagus, which may reflect local esophagitis. 3. Prior right nephrectomy. There is mild left renal caliectasis. 4. Prior cholecystectomy. The appendix not visualized. 5. Very small volume free fluid in the posterior pelvic region. 6. Degenerative changes of the spine, including mild rightward subluxation of L3 on L4 and dextroscoliosis centered at L2-3. Abdomen X-Ray 09/07/18 05:00 IMPRESSION: Small bowel obstruction with numerous air-fluid levels. A nasogastric tube is in place Code Visit Inpatient E&M: 70893 Subs Hosp L3
[2018-09-08] MEDS: Bupivacaine Mpf 0.5% 30 ML VIAL (17:12)
--- NOTE | 2018-09-08 17:23 | OP.PCM_ITS ---
Report of Operation Date of Procedure: 09/08/18 Pre-Operative Diagnosis: SMALL BOWEL OBSTRUCTION Post-Operative Diagnosis: VERY DENSER ADHESIONS THROUGHOUT. NODULE INTRALOOP NEGATIVE FOR CARCINOMA, TRANSITION WITH CONCERN FOR COMPROMISED BOWEL Surgery/Procedure Performed:: LAPROSCOPIC CONVERTED TO OPEN EXPLORATY LAPAROTOMY, EXTENSIVE LYSIS OF ADHESIONS, REPAIR OF SINGLE ENTEROTOMY, SMALL BOWEL RESECTION Description of Surgical Findings:: ABOVE mud jack nozzleman: Daphney Bahena Type of Anesthesia:: General Anesthesiologist: Shiva Aparicio ASA3 Specimen's removed: nodule for frozen, nodule for permanent, small bowel resection Drains: martinez - 150, NG, DEBI drain Estimated Blood Loss (mL): 100 Fluids Replaced: 1400 Description of Procedure: The patient was brought to the operating suite. Sign in was performed verifying patient, site, procedure, position, and DVT prophylaxis with SCDs. Patient received 2 g of cefotetan. Following induction of general anesthetic. The patient?s abdomen was prepped and draped in the usual fashion. Timeout was performed verifying patient, site, position. Local anesthetic was injected below the umbilicus. Incision made and dissection carried down to the umbilical root fascia. 2 stay sutures were placed. Incision made in the fascia, the peritoneum entered under direct visualization. A 10 mm Wood trocar was inserted and secured with the stay sutures. Pneumoperitoneum to 15 mmHg was insufflated. there were noted to be significant adhesions just below the umbilicus and all along the midline. There was a window noted in the left upper quadrant. An initial 5 and replaced with that in the left upper quadrant. Later 2 additional 5 normal ports were placed in the left lateral and left lower quadrants Visual inspection revealed dense and significant adhesions throughout the entire abdominal cavity with dilated proximal small bowel and collapsed distal small bowel. Laparoscopic lysis of adhesions were undertaken. There were noted to be significant adhesions between the omentum and right abdominal area small bowel and the anterior abdominal wall and then multiple and very dense adhesions between the small bowel and the right lower quadrant the left lower quadrant the sigmoid colon and very dense interloop adhesions. As adhesions were being taken off the midline bowel a small enterotomy was made and this was controlled with a clip to fox the site and prevent leakage. After approximate 45 minutes of lysis of adhesions made the decision to convert to open lysis of adhesions as I could still not easily demonstrated transition point between the dilated and collapsed mid small bowel. Incision was extended above and below the midline Wood trocar site dissection carried down and the fascia opened. At this point the proximal dilated small bowel was noted to have a very dense adhesion with 3 different very tight bands in the mid small bowel with proximal distention and distal collapse. These adhesions were lysed. The patient still had very dense adhesions throughout the abdomen and this required extensive lysis of adhesions approximately one hour of adhesiolysis time. At the conclusion the dilated small bowel from the ligament of Treitz was run down to the transition point where there were 3 tight areas of stricture 1 which seemed somewhat compromised this was then run distally. There were dense interloop adhesions which were ligated. There were nodules between some of the adhesions one nodule was excised and sent for frozen section and this returned as scar tissueof malignancy. An additional nodule was sent for permanent pathology. Once full mobilization of the proximal and distal bowel where my small enterotomy was made was completed the enterotomy was closed in a 2 layer fashion with a running 3-0 Vicryl interrupted 3-0 silk sutures this was noted to be watertight. Again the area of concern at the transition point was examined. The area still looked pale white and was not peristalsing. At this point I like to perform a segmental resection. Harmonic scalpel is used to divide the mesentery. Bowel clamps were applied proximal and distal to the area of concern was divided sharply. A functional stapled end-to-end anastomosis creating an antimesenteric stenosis with a ANTHONY 45 mm stapler 2 firings a silk suture was placed in the apex to take tension off and this was then closed transversely with a TL stapler. The anastomosis was noted to be watertight. At this point the abdominal care was irrigated and aspirated copiously. the nasogastric tube was adjusted and palpated in the stomach for good position. At the conclusion of the case, the NG tube was bridled. A 15 round Eric-Feng drain was placed in the left lower quadrant 5 mm trocar site. Interceed was placed in the right and left pelvic areas to prevent re-a dhesions to the sigmoid colon and some was an raw right lower quadrant areas. The omentum was pulled down over the mid small bowel anastomosis and Interceed was placed over the greater omentum to prevent adhesions the midline. Fascia was closed with a running 0 PDS suture. subtenon's tissues irrigated. Skin was closed with yelena. The 15 round Eric-Feng drain was secured with 3-0 nylon suture. The patient was brought to recovery room in stable condition. - Admit VTE Documentation VTE Present on Admission: No VTE Mechan Device Prophylaxis: SCD's
[2018-09-08 19:56] LABS: Bedside Glucose 148 mg/dL (70-110)
[2018-09-08] MEDS: Fat Emulsions 20% 250 ML IV (20:29)
[2018-09-08] MEDS: Morphine 2 MG/ML Syringe 1 MG IV (20:43)
[2018-09-08] MEDS: 0.9% Normal Saline 1,000 ML 125 ML IV (20:48)
[2018-09-09] VITALS (19 sets, daily range): BP systolic 121–150; BP diastolic 64–84; PULSE 80–111; RESP 16–22; TEMP 36.7–37.8; O2SAT 92–98; BMI 21.8
[2018-09-09] MEDS: Insulin Lispro 100 UNIT/ML INSULN.PEN SQ ×4 (00:16→17:35)
[2018-09-09] MEDS: Morphine 2 MG/ML Syringe 1 MG IV ×2 (00:18→05:34)
[2018-09-09] MEDS: 0.9% NaCl Peripheral Flush Adult/Peds IV ×2 (00:19→05:35)
[2018-09-09 00:31] LABS: Bedside Glucose 198 mg/dL (70-110)
[2018-09-09] MEDS: 0.9% Normal Saline 1,000 ML 125 ML IV (04:33)
[2018-09-09] MEDS: Heparin Injection (Vial) 5,000 UNIT/ML VIAL 5000 UNIT SC ×3 (05:36→23:07)
[2018-09-09 06:00] LABS: Bedside Glucose 183 mg/dL (70-110)
[2018-09-09 07:17] LABS: Absolute Lymphocyte Count 0.59 X10^3/ul (0.83-4.51); Absolute Neutrophil Count 5.7 X10^3/uL (2.0-7.7); Basophil# 0.02 X10^3/uL; Basophil% 0.3 % (0-1); Eosinophil# 0.01 X10^3/uL; Eosinophils% 0.1 % (0-5); Hematocrit 44.2 % (40-54); Lymphocyte # 0.59 X10^3/ul (4.0); Lymphocyte % 7.4 % (19-41); Mean Corp Hgb Conc 33.9 g/gl (32-36); Mean Corpuscular Volume 97.4 fL (80-94); Mean Platelet Vol. 10.1 fl (6.2-12.0); Monocyte# 1.65 X10^3/uL; Monocyte% 20.7 % (0-10); Neutrophil # 5.65 X10^3/uL (2.7-7.7); Platelet Count 192 K/mm3 (150-450); RBC Distribution Width CV 11.9 % (11.6-14.6); RBC Distribution Width SD 41.5 fl (35.1-43.9); Red Blood Count 4.54 M/mm3 (4.6-6.2)
[2018-09-09 07:18] LABS: Differential Indicated SCAN CRITERIA MET; POSITIVE COUNT NO; POSITIVE DIFFERENTIAL YES; POSITIVE MORPHOLOGY NO
[2018-09-09 07:28] LABS: BUN 25 mg/dL (7-18); Creatinine, Serum 1.51 mg/dL (0.70-1.30); Estimated Creatinine Clearance 57.58 ml/min; Glucose 176 mg/dL (74-106)
[2018-09-09 07:29] LABS: ALB/GLOB Ratio 0.7 RATIO (0.9-2.4); AST(SGOT) 11 U/L (15-37); Alanine Aminotransfer ALT/SGPT 14 U/L (16-61); Albumin, Serum 2.1 g/dL (3.2-5.0); Alkaline Phosphatase 54 U/L (45-117); Anion Gap 9 (5-15); BUN/Creat Ratio 16.6 RATIO (10-20); Calcium,Total 7.8 mg/dL (8.5-10.1); Chloride 107 mmol/L (98-107); EST Glomerular Filtration Rate 50 mL/min (>60); Est Glom Filt Rate - Afr Amer 60 mL/min (>60); Globulin 2.9 g/dL (2.2-4.2); Magnesium 1.7 mg/dL (1.6-2.6); Phosphorus 2.6 mg/dL (2.5-4.9); Potassium 4.6 mmol/L (3.5-5.1); Sodium Level 138 mmol/L (136-145)
--- NOTE | 2018-09-09 10:40 | PN_ITS ---
Patient Problems: Active and Suspected Problems Partial small bowel obstruction (Acute) Subjective: Patient is postop day 1. Patient had lap converted laparotomy yesterday. Discussed with Dr. Marx. It was prolonged surgery with dense adhesions throughout. She still has postoperative pain. Low-grade temperature 100.1?F. No tachycardia. Pulse ox 97% on room air. She is patient has DEBI with a small amount of serosanguineous fluid. Patient on [employer] morphine Vitals/I&O's: Vital Signs Temp Pulse Resp BP Pulse Ox 99.3 F H 98 20 H 134/80 H 94 09/09/18 08:14 09/09/18 08:14 09/09/18 08:14 09/09/18 08:14 09/09/18 10:15 Oxygen Flow Rate (L/min) 2 Oxygen Delivery Method Room Air Weight: 179 lb 3.773 oz Body Mass Index (BMI) 21.8 Intake and Output for Last 24 Hours 09/07/18 09/08/18 09/09/18 23:59 23:59 23:59 Intake Total 6 / 2056 4450 / 4450 2164.4 / 2164.4 Output Total 3200 / 3200 2660 / 2660 430 / 430 Balance -1144 / -1144 1790 / 1790 1734.4 / 1734.4 General: Alert, Oriented x3, Cooperative HEENT: Atraumatic, PERRLA, EOMI, Normocephalic Neck: Supple, No JVD, Negative Carotid Bruits Lungs: Clear to auscultation, No rhonchi, No wheeze, No rales, Diminished - Diminished in right lung base Cardiovascular: Regular rate, Regular Rhythm, Normal S1, Normal S2, No murmurs Abdomen: Bowel Sounds Present, Soft, Hypoactive Bowel Sounds, Tender - Diffuse tenderness present. Extremities: No edema, Capillary Refill Less than 3 Seconds Skin: No rashes, No breakdown Musculoskeletal: No Tenderness to Palpation of Joints or Extremities, Arthritic Changes, Muscle Wasting Neurological: Cranial nerves II-XII grossly intact, Deep Tendon Reflexes 2+/4 and Symmetrical, Neuro grossly intact Psych/Mental Status: Normal Affect, Appropriate Laboratory Results 09/08/18 11:30: POC Glucose 140 H 09/08/18 19:52: POC Glucose 148 H 09/09/18 00:12: POC Glucose 198 H 09/09/18 05:34: POC Glucose 183 H 09/09/18 06:40: Sodium 138, Potassium 4.6, Chloride 107, Carbon Dioxide 22.0, Anion Gap 9, BUN 25 H, Creatinine 1.51 H, Estim Creat Clear Calc 57.58, Est GFR (MDRD) Af Amer 60, Est GFR (MDRD) Non-Af 50 L, BUN/Creatinine Ratio 16.6, Glucose 176 H, Calcium 7.8 L, Phosphorus 2.6, Magnesium 1.7, Total Bilirubin 0.40, AST 11 L, ALT 14 L, Alkaline Phosphatase 54, Total Protein 5.0 L, Albumin 2.1 L, Globulin 2.9, Albumin/Globulin Ratio 0.7 L 09/09/18 06:40: WBC 8.0, RBC 4.54 L, Hgb 15.0, Hct 44.2, MCV 97.4 H, MCH 33.0 H, MCHC 33.9, RDW 11.9, RDW Differential 41.5, Plt Count 192, MPV 10.1, Immature Gran % (Auto) 0.500, Neut % (Auto) 71.0 H, Lymph % (Auto) 7.4 L, [place] % (Auto) 20.7 H, Eos % (Auto) 0.1, Baso % (Auto) 0.3, Absolute Neuts (auto) 5.7, Absolute Lymphs (auto) 0.59 L, Total Counted Not Reportable Current Medications Dextrose (D50w Syringe) 0 gm IV X1 PRN; Protocol PRN Reason: Hypoglycemia Diphenhydramine HCl (Benadryl) 12.5 - 25 mg IV Q6H PRN PRN PRN Reason: ITCHING Diphenhydramine HCl (Benadryl) 12.5 - 25 mg PO Q6H PRN PRN PRN Reason: Pruritis Glucagon () 1 mg IM .X1 PRN PRN Reason: Hypoglycemia Heparin Sodium (Porcine) (Heparin Na) 5,000 unit SC Q8 [facility] Last Admin: 09/09/18 05:36 Dose: 5,000 unit Hydralazine HCl (Apresoline Iv) 5 mg IV Q4H PRN PRN PRN Reason: SBP > 160 Multivitamins 10 ml/ Chromium/Copper/Manganese/Seleni/Zn 1 ml/ Folic Acid 1 mg/Famotidine 40 mg/ Amino Acids/Electrolytes 2,015.2 mls @ 84 mls/hr IV .Q24H [facility] Stop: 09/09/18 17:14 Last Admin: 09/08/18 20:09 Dose: 84 mls/hr Sodium Chloride () 1,000 mls @ 125 mls/hr IV .Q8H [facility] Stop: 09/09/18 12:14 Last Admin: 09/09/18 04:33 Dose: 125 mls/hr Naloxone HCl 4 mg/ Dextrose 504 mls @ 0 mls/hr IV .Q0M PRN; Protocol PRN Reason: To maintain Resp. rate >10 Insulin Human Lispro (Humalog Kwikpen (Bkc)) 0 unit SQ Q6 [facility]; Protocol Last Admin: 09/09/18 05:36 Dose: 1 u Lorazepam (Ativan) 0.5 mg IV Q4H PRN PRN PRN Reason: RESTLESSNESS Last Admin: 09/08/18 18:26 Dose: 0.5 mg Magnesium Hydroxide (Milk Of Magnesia) 30 ml PO DAILY PRN PRN PRN Reason: Constipation Morphine Sulfate () 1 mg IV Q4H PRN PRN PRN Reason: PAIN Last Admin: 09/09/18 05:34 Dose: 1 mg Morphine Sulfate () 100 mg IV UD [facility]; Protocol Last Admin: 09/09/18 08:48 Dose: 100 mg Naloxone HCl (Narcan) 0.02 mg IV Q1M PRN PRN Reason: RR <10 and pt unresponsive Ondansetron HCl (Zofran) 4 mg IV Q6H PRN PRN PRN Reason: NAUSEA/VOMITING Last Admin: 09/05/18 17:53 Dose: 4 mg Prochlorperazine Edisylate (Compazine Iv) 5 mg IV Q4H PRN PRN PRN Reason: NAUSEA/VOMITING Last Admin: 09/05/18 15:21 Dose: 5 mg Sodium Chloride () 5 - 15 ml IV UD PRN PRN Reason: SALINE FLUSH Last Admin: 09/09/18 05:35 Dose: 10 ml Medical Necessity - Tobacco Use Smoking Status: Never smoker Assessment/Plan All Active Problems Partial small bowel obstruction (Acute) New onset atrial fibrillation (Resolved) Hypotension (Resolved) This is a 62 year old M with past medical history of stage 4 colon cancer status post colectomy, s/p right katelyn-colectomy, sigmoid resection, s/p chemotherapy, on immunotherapy with Keytruda, admitted with abdominal pain, nausea; vomiting. CT abdomen/pelvis showed partial small bowel obstruction. 1. None resolving small bowel obstruction secondary to dense adhesions status post laparotomy and extensive adhesiolysis: postop day 1. Continue with gentle IV fluids, prn anti-emetics. on TPN -discussed with dietitian and pharmacist. Dr. Marx note reviewed. CT scan suggested distal small bowel obstruction. Serial KUBs does not show resolution of obstruction and patient was taken for surgery on 09/08. Patient had laparoscopic converted open laparotomy with extensive adhesiolysis, repair of single enterotomy and a small bowel resection with end-to-end anastomosis. Patient has DEBI drain left 2. Elevated Blood pressure, no diagnosis of hypertension, BP has been fluc tuating, will continue to monitor, prn hydralazine, blood pressure is good. 3. Stage IV colon cancer, s/p right katelyn-colectomy, sigmoid resection, on immunotherapy. Discussed with Dr. Ordoñez. He said patient was doing good on Keytruda for about 1-1/2 years. 4. The patient subsequent exploration with sigmoid resection and s/p right kidney/ureter/psoas resection Severe protein calorie malnutrition, present since admission: On IV TPN. N.p.o. 5. DVT prophylaxis- Heparin SC. Laboratory Results 09/09/18 06:40: Sodium 138, Potassium 4.6, Chloride 107, Carbon Dioxide 22.0, Anion Gap 9, BUN 25 H, Creatinine 1.51 H, Estim Creat Clear Calc 57.58, Est GFR (MDRD) Af Amer 60, Est GFR (MDRD) Non-Af 50 L, BUN/Creatinine Ratio 16.6, Glucose 176 H, Calcium 7.8 L, Phosphorus 2.6, Magnesium 1.7, Total Bilirubin 0.40, AST 11 L, ALT 14 L, Alkaline Phosphatase 54, Total Protein 5.0 L, Albumin 2.1 L, Globulin 2.9, Albumin/Globulin Ratio 0.7 L 09/09/18 06:40: WBC 8.0, RBC 4.54 L, Hgb 15.0, Hct 44.2, MCV 97.4 H, MCH 33.0 H, MCHC 33.9, RDW 11.9, RDW Differential 41.5, Plt Count 192, MPV 10.1, Immature Gran % (Auto) 0.500, Neut % (Auto) 71.0 H, Lymph % (Auto) 7.4 L, [place] % (Auto) 20.7 H, Eos % (Auto) 0.1, Baso % (Auto) 0.3, Absolute Neuts (auto) 5.7, Absolute Lymphs (auto) 0.59 L, Total Counted Not Reportable 09/09/18 11:22: POC Glucose 183 H Clinical Impression(s) from Imaging Studies Abdomen/Pelvis CT 09/03/18 16:30 IMPRESSION: 1. Findings consistent with a significant partial small bowel obstruction with an abrupt transition in the posterior mid abdomen proximity to prior postsurgical change. There is no other demonstrated obstructing pathology, so this may reflect an adhesion. There is moderate distention of the stomach with gas and undigested food status. No free gas. 2. Mural thickening of the distal esophagus, which may reflect local esophagitis. 3. Prior right nephrectomy. There is mild left renal caliectasis. 4. Prior cholecystectomy. The appendix not visualized. 5. Very small volume free fluid in the posterior pelvic region. 6. Degenerative changes of the spine, including mild rightward subluxation of L3 on L4 and dextroscoliosis centered at L2-3. Abdomen X-Ray 09/07/18 05:00 IMPRESSION: Small bowel obstruction with numerous air-fluid levels. A nasogastric tube is in place Code Visit Inpatient E&M: 64475 Subs Hosp L3
[2018-09-09 11:50] LABS: Bedside Glucose 183 mg/dL (70-110)
[2018-09-09] MEDS: Lactated Ringers 1,000 ML 75 ML IV (16:46)
[2018-09-09 17:45] LABS: Bedside Glucose 154 mg/dL (70-110)
--- NOTE | 2018-09-09 19:19 | PCM.PN.SRG ---
Patient Problems: Active and Suspected Problems Partial small bowel obstruction (Acute) Subjective: some incisional pain - Physical Exam General: Alert, Oriented x3, Cooperative Lungs: Clear to auscultation, Normal air movement Cardiovascular: Regular rate, No murmurs Abdomen: Bowel Sounds Not Present, Distended, Tender - along incisions, Eric-Feng drain with serosanguineous output Vital Signs Temp Pulse Resp BP Pulse Ox 98.2 F 101 H 20 H 135/83 H 98 09/09/18 15:13 09/09/18 17:00 09/09/18 17:00 09/09/18 17:00 09/09/18 17:26 Oxygen Flow Rate (L/min) 2 Oxygen Delivery Method Room Air Weight: 81.3 kg Body Mass Index (BMI) 21.8 Intake and Output for Last 24 Hours 09/07/18 09/08/18 09/09/18 23:59 23:59 23:59 Intake Total 2056 / 2056 4450 / 4450 4138.4 / 4138.4 Output Total 3200 / 3200 2660 / 2660 515 / 515 Balance -1144 / -1144 1790 / 1790 3623.4 / 3623.4 Laboratory Tests Past 24 Hrs 09/09/18 09/09/18 06:40 06:40 WBC 8.0 RBC 4.54 L Hgb 15.0 Hct 44.2 MCV 97.4 H MCH 33.0 H MCHC 33.9 RDW 11.9 RDW Differential 41.5 Plt Count 192 MPV 10.1 Immature Gran % (Auto) 0.500 Neut % (Auto) 71.0 H Lymph % (Auto) 7.4 L [place] % (Auto) 20.7 H Eos % (Auto) 0.1 Baso % (Auto) 0.3 Absolute Neuts (auto) 5.7 Absolute Lymphs (auto) 0.59 L Total Counted Not Reportable Sodium 138 Potassium 4.6 Chloride 107 Carbon Dioxide 22.0 Anion Gap 9 BUN 25 H Creatinine 1.51 H Estim Creat Clear Calc 57.58 Est GFR (MDRD) Af Amer 60 Est GFR (MDRD) Non-Af 50 L BUN/Creatinine Ratio 16.6 Glucose 176 H Calcium 7.8 L Phosphorus 2.6 Magnesium 1.7 Total Bilirubin 0.40 AST 11 L ALT 14 L Alkaline Phosphatase 54 Total Protein 5.0 L Albumin 2.1 L Globulin 2.9 Albumin/Globulin Ratio 0.7 L POC Glucose 09/09/18 09/09/18 09/09/18 17:34 11:22 05:34 POC Glucose 154 H 183 H 183 H 09/09/18 09/08/18 00:12 19:52 POC Glucose 198 H 148 H Medical Necessity - Tobacco Use Smoking Status: Never smoker Assessment/Plan All Active Problems Partial small bowel obstruction (Acute) New onset atrial fibrillation (Resolved) Hypotension (Resolved) 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 Now with small bowel obstruction. noted improved with conservative management. Postoperatively #1 status post laparoscopic converted to exploratory laparotomy with very extensive lysis of adhesions-greater than 2 hours, repair of small bowel enterotomy and segmental small bowel resection due to stricture with compromised bowel noted at area of tightest band. Patient notes incisional pain. We will start morphine [employer] to see if this improves his overall symptoms. Nasogastric tube bridled in place and functioning well. We will encourage incentive spirometry, ambulation, patient chew gum and may use Cepacol throat lozenges if needed. Mosher catheter removed last evening. Urine output adequate. given his overall clinical status of protein wasting and failure for quick resolution - on TPN.
--- NOTE | 2018-09-09 19:22 | PN.SURG_ITS ---
Patient Problems: Active and Suspected Problems Partial small bowel obstruction (Acute) Subjective: some incisional pain - Physical Exam General: Alert, Oriented x3, Cooperative Lungs: Clear to auscultation, Normal air movement Cardiovascular: Regular rate, No murmurs Abdomen: Bowel Sounds Not Present, Distended, Tender - along incisions, Eric- Feng drain with serosanguineous output Vital Signs Temp Pulse Resp BP Pulse Ox 98.2 F 101 H 20 H 135/83 H 98 09/09/18 15:13 09/09/18 17:00 09/09/18 17:00 09/09/18 17:00 09/09/18 17:26 Oxygen Flow Rate (L/min) 2 Oxygen Delivery Method Room Air Weight: 81.3 kg Body Mass Index (BMI) 21.8 Intake and Output for Last 24 Hours 09/07/18 09/08/18 09/09/18 23:59 23:59 23:59 Intake Total 2056 / 2056 4450 / 4450 4138.4 / 4138.4 Output Total 3200 / 3200 2660 / 2660 515 / 515 Balance -1144 / -1144 1790 / 1790 3623.4 / 3623.4 Laboratory Tests Past 24 Hrs 09/09/18 09/09/18 06:40 06:40 WBC 8.0 RBC 4.54 L Hgb 15.0 Hct 44.2 MCV 97.4 H MCH 33.0 H MCHC 33.9 RDW 11.9 RDW Differential 41.5 Plt Count 192 MPV 10.1 Immature Gran % (Auto) 0.500 Neut % (Auto) 71.0 H Lymph % (Auto) 7.4 L [place] % (Auto) 20.7 H Eos % (Auto) 0.1 Baso % (Auto) 0.3 Absolute Neuts (auto) 5.7 Absolute Lymphs (auto) 0.59 L Total Counted Not Reportable Sodium 138 Potassium 4.6 Chloride 107 Carbon Dioxide 22.0 Anion Gap 9 BUN 25 H Creatinine 1.51 H Estim Creat Clear Calc 57.58 Est GFR (MDRD) Af Amer 60 Est GFR (MDRD) Non-Af 50 L BUN/Creatinine Ratio 16.6 Glucose 176 H Calcium 7.8 L Phosphorus 2.6 Magnesium 1.7 Total Bilirubin 0.40 AST 11 L ALT 14 L Alkaline Phosphatase 54 Total Protein 5.0 L Albumin 2.1 L Globulin 2.9 Albumin/Globulin Ratio 0.7 L POC Glucose 09/09/18 09/09/18 09/09/18 17:34 11:22 05:34 POC Glucose 154 H 183 H 183 H 09/09/18 09/08/18 00:12 19:52 POC Glucose 198 H 148 H Medical Necessity - Tobacco Use Smoking Status: Never smoker Assessment/Plan All Active Problems Partial small bowel obstruction (Acute) New onset atrial fibrillation (Resolved) Hypotension (Resolved) 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 Now with small bowel obstruction. noted improved with conservative management. Postoperatively #1 status post laparoscopic converted to exploratory laparotomy with very extensive lysis of adhesions-greater than 2 hours, repair of small bowel enterotomy and segmental small bowel resection due to stricture with compromised bowel noted at area of tightest band. Patient notes incisional pain. 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 Nasogastric tube bridled in place and functioning well. We will encourage incentive spirometry, ambulation, patient chew gum and may use Cepacol throat lozenges if needed. Mosher catheter removed last evening. Urine output adequate. given his overall clinical status of protein wasting and failure for quick resolution - on TPN.
[2018-09-09] MEDS: Ondansetron 4 MG/2 ML Vial IV (20:31)
[2018-09-09] MEDS: LORazepam 2 MG/ML Syringe 0.5 MG IV (20:32)
[2018-09-10] VITALS (17 sets, daily range): BP systolic 141–159; BP diastolic 78–87; PULSE 86–101; RESP 16–24; TEMP 36.5–36.9; O2SAT 95–100; BMI 21.8
[2018-09-10] MEDS: Insulin Lispro 100 UNIT/ML INSULN.PEN SQ ×2 (00:35→07:10)
[2018-09-10 00:36] LABS: Bedside Glucose 150 mg/dL (70-110)
[2018-09-10] MEDS: Lactated Ringers 1,000 ML 75 ML IV (05:37)
[2018-09-10] MEDS: Heparin Injection (Vial) 5,000 UNIT/ML VIAL 5000 UNIT SC ×3 (05:39→22:18)
[2018-09-10 06:39] LABS: Absolute Lymphocyte Count 0.56 X10^3/ul (0.83-4.51); Basophil# 0.03 X10^3/uL; Basophil% 0.4 % (0-1); Eosinophil# 0.18 X10^3/uL; Eosinophils% 2.4 % (0-5); Hematocrit 39.6 % (40-54); Hemoglobin 13.4 g/dl (13.0-16.5); Lymphocyte # 0.56 X10^3/ul (4.0); Lymphocyte % 7.4 % (19-41); Mean Corp Hgb Conc 33.8 g/gl (32-36); Mean Corpuscular Hgb 33.6 pg (27.0-32.0); Mean Corpuscular Volume 99.2 fL (80-94); Mean Platelet Vol. 9.4 fl (6.2-12.0); Monocyte# 1.77 X10^3/uL; Monocyte% 23.4 % (0-10); Neutrophil # 4.96 X10^3/uL (2.7-7.7); Neutrophil % 65.7 % (47-70); Platelet Count 178 K/mm3 (150-450); RBC Distribution Width CV 11.8 % (11.6-14.6); RBC Distribution Width SD 42.5 fl (35.1-43.9); Red Blood Count 3.99 M/mm3 (4.6-6.2); White Blood Count 7.6 K/mm3 (4.4-11.0)
[2018-09-10 06:41] LABS: Differential Indicated SCAN CRITERIA MET; POSITIVE COUNT NO; POSITIVE DIFFERENTIAL YES; POSITIVE MORPHOLOGY NO
[2018-09-10 06:57] LABS: Anion Gap 7 (5-15); BUN 24 mg/dL (7-18); BUN/Creat Ratio 16.9 RATIO (10-20); Chloride 103 mmol/L (98-107); Creatinine, Serum 1.42 mg/dL (0.70-1.30); EST Glomerular Filtration Rate 53 mL/min (>60); Est Glom Filt Rate - Afr Amer 65 mL/min (>60); Estimated Creatinine Clearance 61.23 ml/min; Glucose 156 mg/dL (74-106); Potassium 4.3 mmol/L (3.5-5.1); Sodium Level 135 mmol/L (136-145)
[2018-09-10 07:50] LABS: Bedside Glucose 158 mg/dL (70-110)
[2018-09-10 12:40] LABS: Bedside Glucose 147 mg/dL (70-110)
--- NOTE | 2018-09-10 14:23 | PCM.PN.HOSP ---
Patient Problems: Active and Suspected Problems Partial small bowel obstruction (Acute) Subjective: Patient postop day second. Sitting on the recliner. Has NG tube. On TPN. Still n.p.o. No tachypnea or hypoxia although patient had respiratory rate 20-24/min last night. I and O's 3000/720, positive balance 2420. DEBI drain 20 mL Objective: General: Alert, Oriented x3, Cooperative HEENT: Atraumatic, PERRLA, EOMI, Normocephalic Neck: Supple, No JVD, Negative Carotid Bruits Lungs: Clear to auscultation, No rhonchi, No wheeze, No rales, Diminished - Diminished in right lung base Cardiovascular: Regular rate, Regular Rhythm, Normal S1, Normal S2, No murmurs Abdomen: Bowel Sounds Present, Soft, Hypoactive Bowel Sounds, Diffuse postoperative tenderness present. Extremities: No edema, Capillary Refill Less than 3 Seconds Skin: No rashes, No breakdown Musculoskeletal: No Tenderness to Palpation of Joints or Extremities, Arthritic Changes, Muscle Wasting Neurological: Cranial nerves II-XII grossly intact, Deep Tendon Reflexes 2+/4 and Symmetrical, Neuro grossly intact Psych/Mental Status: Normal Affect, Appropriate Vitals/I&O's: Vital Signs Temp Pulse Resp BP Pulse Ox 98.5 F 92 16 148/78 H 96 09/10/18 12:00 09/10/18 12:00 09/10/18 12:00 09/10/18 12:00 09/10/18 12:00 Oxygen Flow Rate (L/min) 2 Oxygen Delivery Method Room Air Weight: 179 lb 3.773 oz Body Mass Index (BMI) 21.8 Intake and Output for Last 24 Hours 09/08/18 09/09/18 09/10/18 23:59 23:59 23:59 Intake Total 4450 / 4450 4168.4 / 4168.4 3139 / 3139 Output Total 2660 / 2660 515 / 515 720 / 720 Balance 1790 / 1790 3653.4 / 3653.4 2419 / 2419 Laboratory Results 09/09/18 17:34: POC Glucose 154 H 09/10/18 00:21: POC Glucose 150 H 09/10/18 06:30: Sodium 135 L, Potassium 4.3, Chloride 103, Carbon Dioxide 25.0, Anion Gap 7, BUN 24 H, Creatinine 1.42 H, Estim Creat Clear Calc 61.23, Est GFR (MDRD) Af Amer 65, Est GFR (MDRD) Non-Af 53 L, BUN/Creatinine Ratio 16.9, Glucose 156 H, Calcium 8.0 L 09/10/18 06:30: WBC 7.6, RBC 3.99 L, Hgb 13.4, Hct 39.6 L, MCV 99.2 H, MCH 33.6 H, MCHC 33.8, RDW 11.8, RDW Differential 42.5, Plt Count 178, MPV 9.4, Immature Gran % (Auto) 0.700, Neut % (Auto) 65.7, Lymph % (Auto) 7.4 L, [place] % (Auto) 23.4 H, Eos % (Auto) 2.4, Baso % (Auto) 0.4, Absolute Neuts (auto) 5.0, Absolute Lymphs (auto) 0.56 L, Total Counted Not Reportable 09/10/18 07:08: POC Glucose 158 H 09/10/18 12:22: POC Glucose 147 H Current Medications Dextrose (D50w Syringe) 0 gm IV X1 PRN; Protocol PRN Reason: Hypoglycemia Diphenhydramine HCl (Benadryl) 12.5 - 25 mg IV Q6H PRN PRN PRN Reason: ITCHING Diphenhydramine HCl (Benadryl) 12.5 - 25 mg PO Q6H PRN PRN PRN Reason: Pruritis Glucagon () 1 mg IM .X1 PRN PRN Reason: Hypoglycemia Heparin Sodium (Porcine) (Heparin Na) 5,000 unit SC Q8 OLINDA Last Admin: 09/10/18 05:39 Dose: 5,000 unit Hydralazine HCl (Apresoline Iv) 5 mg IV Q4H PRN PRN PRN Reason: SBP > 160 Naloxone HCl 4 mg/ Dextrose 504 mls @ 0 mls/hr IV .Q0M PRN; Protocol PRN Reason: To maintain Resp. rate >10 Multivitamins 10 ml/ Chromium/Copper/Manganese/Seleni/Zn 1 ml/ Folic Acid 1 mg/Famotidine 40 mg/ Amino Acids/Electrolytes 2,015.2 mls @ 84 mls/hr IV .Q24H [facility] Stop: 09/10/18 15:59 Last Admin: 09/09/18 16:46 Dose: 84 mls/hr Lactated Ringer's () 1,000 mls @ 75 mls/hr IV .[id number] [facility] Last Admin: 09/10/18 05:37 Dose: 75 mls/hr Insulin Human Lispro (Humalog Kwikpen (Bkc)) 0 unit SQ Q6 [facility]; Protocol Last Admin: 09/10/18 12:23 Dose: Not Given Lorazepam (Ativan) 0.5 mg IV Q4H PRN PRN PRN Reason: RESTLESSNESS Last Admin: 09/09/18 20:32 Dose: 0.5 mg Magnesium Hydroxide (Milk Of Magnesia) 30 ml PO DAILY PRN PRN PRN Reason: Constipation Morphine Sulfate () 1 mg IV Q4H PRN PRN PRN Reason: PAIN Last Admin: 09/09/18 05:34 Dose: 1 mg Morphine Sulfate () 100 mg IV UD [facility]; Protocol Last Admin: 09/09/18 08:48 Dose: 100 mg Naloxone HCl (Narcan) 0.02 mg IV Q1M PRN PRN Reason: RR <10 and pt unresponsive Ondansetron HCl (Zofran) 4 mg IV Q6H PRN PRN PRN Reason: NAUSEA/VOMITING Last Admin: 09/09/18 20:31 Dose: 4 mg Prochlorperazine Edisylate (Compazine Iv) 5 mg IV Q4H PRN PRN PRN Reason: NAUSEA/VOMITING Last Admin: 09/05/18 15:21 Dose: 5 mg Sodium Chloride () 5 - 15 ml IV UD PRN PRN Reason: SALINE FLUSH Last Admin: 09/09/18 05:35 Dose: 10 ml Throat Lozenges (Cepacol Sore Throat Lozenge) 1 lozenge MUCOUS MEM Q1H PRN PRN PRN Reason: SORE THROAT Medical Necessity - Tobacco Use Smoking Status: Never smoker Assessment/Plan All Active Problems Partial small bowel obstruction (Acute) New onset atrial fibrillation (Resolved) Hypotension (Resolved) This is a 62 year old M with past medical history of stage 4 colon cancer status post colectomy, s/p right katelyn-colectomy, sigmoid resection, s/p chemotherapy, on immunotherapy with Keytruda, admitted with abdominal pain, nausea; vomiting. CT abdomen/pelvis showed partial small bowel obstruction. 1. None resolving small bowel obstruction secondary to dense adhesions status post laparotomy and extensive adhesiolysis: postop day 1. Continue with gentle IV fluids, prn anti-emetics. on TPN -discussed with dietitian and pharmacist. Dr. Marx note reviewed. CT scan suggested distal small bowel obstruction. Serial KUBs does not show resolution of obstruction and patient was taken for surgery on 09/08. Patient had laparoscopic converted open laparotomy with extensive adhesiolysis, repair of single enterotomy and a small bowel resection with end-to-end anastomosis. Patient has positive fluid balance. DEBI drain only 20 mL. Possible right Lower lobe atelectasis: Patient has decreased air entry in right lung base. Portable chest x-ray ordered. Advised incentive spirometry. Sitting on recliner. 2. Elevated Blood pressure, no diagnosis of hypertension, BP has been fluctuating, will continue to monitor, prn hydralazine, blood pressure is good. 3. Stage IV colon cancer, s/p right katelyn-colectomy, sigmoid resection, on immunotherapy. Discussed with Dr. Ordoñez. He said patient was doing good on Keytruda for about 1-1/2 years. 4. The patient subsequent exploration with sigmoid resection and s/p right kidney/ureter/psoas resection Severe protein calorie malnutrition, present since admission: On IV TPN. N.p.o. 5. DVT prophylaxis- Heparin SC. Laboratory Results 09/09/18 17:34: POC Glucose 154 H 09/10/18 00:21: POC Glucose 150 H 09/10/18 06:30: Sodium 135 L, Potassium 4.3, Chloride 103, Carbon Dioxide 25.0, Anion Gap 7, BUN 24 H, Creatinine 1.42 H, Estim Creat Clear Calc 61.23, Est GFR (MDRD) Af Amer 65, Est GFR (MDRD) Non-Af 53 L, BUN/Creatinine Ratio 16.9, Glucose 156 H, Calcium 8.0 L 09/10/18 06:30: WBC 7.6, RBC 3.99 L, Hgb 13.4, Hct 39.6 L, MCV 99.2 H, MCH 33.6 H, MCHC 33.8, RDW 11.8, RDW Differential 42.5, Plt Count 178, MPV 9.4, Immature Gran % (Auto) 0.700, Neut % (Auto) 65.7, Lymph % (Auto) 7.4 L, [place] % (Auto) 23.4 H, Eos % (Auto) 2.4, Baso % (Auto) 0.4, Absolute Neuts (auto) 5.0, Absolute Lymphs (auto) 0.56 L, Total Counted Not Reportable 09/10/18 07:08: POC Glucose 158 H 09/10/18 12:22: POC Glucose 147 H Clinical Impression(s) from Imaging Studies Abdomen/Pelvis CT 09/03/18 16:30 IMPRESSION: 1. Findings consistent with a significant partial small bowel obstruction with an abrupt transition in the posterior mid abdomen proximity to prior postsurgical change. There is no other demonstrated obstructing pathology, so this may reflect an adhesion. There is moderate distention of the stomach with gas and undigested food status. No free gas. 2. Mural thickening of the distal esophagus, which may reflect local esophagitis. 3. Prior right nephrectomy. There is mild left renal caliectasis. 4. Prior cholecystectomy. The appendix not visualized. 5. Very small volume free fluid in the posterior pelvic region. 6. Degenerative changes of the spine, including mild rightward subluxation of L3 on L4 and dextroscoliosis centered at L2-3. Abdomen X-Ray 09/07/18 05:00 IMPRESSION: Small bowel obstruction with numerous air-fluid levels. A nasogastric tube is in place Code Visit Inpatient E&M: 03377 Subs Hosp L3
--- NOTE | 2018-09-10 14:30 | PN_ITS ---
Patient Problems: Active and Suspected Problems Partial small bowel obstruction (Acute) Subjective: Patient postop day second. Sitting on the recliner. Has NG tube. On TPN. Still n.p.o. No tachypnea or hypoxia although patient had respiratory rate 20- 24/min last night. I and O's 3000/720, positive balance 2420. DEBI drain 20 mL Objective: General: Alert, Oriented x3, Cooperative HEENT: Atraumatic, PERRLA, EOMI, Normocephalic Neck: Supple, No JVD, Negative Carotid Bruits Lungs: Clear to auscultation, No rhonchi, No wheeze, No rales, Diminished - Diminished in right lung base Cardiovascular: Regular rate, Regular Rhythm, Normal S1, Normal S2, No murmurs Abdomen: Bowel Sounds Present, Soft, Hypoactive Bowel Sounds, Diffuse postoperative tenderness present. Extremities: No edema, Capillary Refill Less than 3 Seconds Skin: No rashes, No breakdown Musculoskeletal: No Tenderness to Palpation of Joints or Extremities, Arthritic Changes, Muscle Wasting Neurological: Cranial nerves II-XII grossly intact, Deep Tendon Reflexes 2+/4 and Symmetrical, Neuro grossly intact Psych/Mental Status: Normal Affect, Appropriate Vitals/I&O's: Vital Signs Temp Pulse Resp BP Pulse Ox 98.5 F 92 16 148/78 H 96 09/10/18 12:00 09/10/18 12:00 09/10/18 12:00 09/10/18 12:00 09/10/18 12:00 Oxygen Flow Rate (L/min) 2 Oxygen Delivery Method Room Air Weight: 179 lb 3.773 oz Body Mass Index (BMI) 21.8 Intake and Output for Last 24 Hours 09/08/18 09/09/18 09/10/18 23:59 23:59 23:59 Intake Total 4450 / 4450 4168.4 / 4168.4 3139 / 3139 Output Total 2660 / 2660 515 / 515 720 / 720 Balance 1790 / 1790 3653.4 / 3653.4 2419 / 2419 Laboratory Results 09/09/18 17:34: POC Glucose 154 H 09/10/18 00:21: POC Glucose 150 H 09/10/18 06:30: Sodium 135 L, Potassium 4.3, Chloride 103, Carbon Dioxide 25.0, Anion Gap 7, BUN 24 H, Creatinine 1.42 H, Estim Creat Clear Calc 61.23, Est GFR (MDRD) Af Amer 65, Est GFR (MDRD) Non-Af 53 L, BUN/Creatinine Ratio 16.9, Glucose 156 H, Calcium 8.0 L 09/10/18 06:30: WBC 7.6, RBC 3.99 L, Hgb 13.4, Hct 39.6 L, MCV 99.2 H, MCH 33.6 H, MCHC 33.8, RDW 11.8, RDW Differential 42.5, Plt Count 178, MPV 9.4, Immature Gran % (Auto) 0.700, Neut % (Auto) 65.7, Lymph % (Auto) 7.4 L, [place] % (Auto) 23.4 H, Eos % (Auto) 2.4, Baso % (Auto) 0.4, Absolute Neuts (auto) 5.0, Absolute Lymphs (auto) 0.56 L, Total Counted Not Reportable 09/10/18 07:08: POC Glucose 158 H 09/10/18 12:22: POC Glucose 147 H Current Medications Dextrose (D50w Syringe) 0 gm IV X1 PRN; Protocol PRN Reason: Hypoglycemia Diphenhydramine HCl (Benadryl) 12.5 - 25 mg IV Q6H PRN PRN PRN Reason: ITCHING Diphenhydramine HCl (Benadryl) 12.5 - 25 mg PO Q6H PRN PRN PRN Reason: Pruritis Glucagon () 1 mg IM .X1 PRN PRN Reason: Hypoglycemia Heparin Sodium (Porcine) (Heparin Na) 5,000 unit SC Q8 OLINDA Last Admin: 09/10/18 05:39 Dose: 5,000 unit Hydralazine HCl (Apresoline Iv) 5 mg IV Q4H PRN PRN PRN Reason: SBP > 160 Naloxone HCl 4 mg/ Dextrose 504 mls @ 0 mls/hr IV .Q0M PRN; Protocol PRN Reason: To maintain Resp. rate >10 Multivitamins 10 ml/ Chromium/Copper/Manganese/Seleni/Zn 1 ml/ Folic Acid 1 mg/Famotidine 40 mg/ Amino Acids/Electrolytes 2,015.2 mls @ 84 mls/hr IV .Q24H [facility] Stop: 09/10/18 15:59 Last Admin: 09/09/18 16:46 Dose: 84 mls/hr Lactated Ringer's () 1,000 mls @ 75 mls/hr IV .[id number] [facility] Last Admin: 09/10/18 05:37 Dose: 75 mls/hr Insulin Human Lispro (Humalog Kwikpen (Bkc)) 0 unit SQ Q6 [facility]; Protocol Last Admin: 09/10/18 12:23 Dose: Not Given Lorazepam (Ativan) 0.5 mg IV Q4H PRN PRN PRN Reason: RESTLESSNESS Last Admin: 09/09/18 20:32 Dose: 0.5 mg Magnesium Hydroxide (Milk Of Magnesia) 30 ml PO DAILY PRN PRN PRN Reason: Constipation Morphine Sulfate () 1 mg IV Q4H PRN PRN PRN Reason: PAIN Last Admin: 09/09/18 05:34 Dose: 1 mg Morphine Sulfate () 100 mg IV UD [facility]; Protocol Last Admin: 09/09/18 08:48 Dose: 100 mg Naloxone HCl (Narcan) 0.02 mg IV Q1M PRN PRN Reason: RR <10 and pt unresponsive Ondansetron HCl (Zofran) 4 mg IV Q6H PRN PRN PRN Reason: NAUSEA/VOMITING Last Admin: 09/09/18 20:31 Dose: 4 mg Prochlorperazine Edisylate (Compazine Iv) 5 mg IV Q4H PRN PRN PRN Reason: NAUSEA/VOMITING Last Admin: 09/05/18 15:21 Dose: 5 mg Sodium Chloride () 5 - 15 ml IV UD PRN PRN Reason: SALINE FLUSH Last Admin: 09/09/18 05:35 Dose: 10 ml Throat Lozenges (Cepacol Sore Throat Lozenge) 1 lozenge MUCOUS MEM Q1H PRN PRN PRN Reason: SORE THROAT Medical Necessity - Tobacco Use Smoking Status: Never smoker Assessment/Plan All Active Problems Partial small bowel obstruction (Acute) New onset atrial fibrillation (Resolved) Hypotension (Resolved) This is a 62 year old M with past medical history of stage 4 colon cancer status post colectomy, s/p right katelyn-colectomy, sigmoid resection, s/p chemotherapy, on immunotherapy with Keytruda, admitted with abdominal pain, nausea; vomiting. CT abdomen/pelvis showed partial small bowel obstruction. 1. None resolving small bowel obstruction secondary to dense adhesions status post laparotomy and extensive adhesiolysis: postop day 1. Continue with gentle IV fluids, prn anti-emetics. on TPN -discussed with dietitian and pharmacist. Dr. Marx note reviewed. CT scan suggested distal small bowel obstruction. Serial KUBs does not show resolution of obstruction and patient was taken for surgery on 09/08. Patient had laparoscopic converted open laparotomy with extensive adhesiolysis, repair of single enterotomy and a small bowel resection with end-to-end anastomosis. Patient has positive fluid balance. DEBI drain only 20 mL. Possible right Lower lobe atelectasis: Patient has decreased air entry in right lung base. Portable chest x-ray ordered. Advised incentive spirometry. Sitting on recliner. 2. Elevated Blood pressure, no diagnosis of hypertension, BP has been fluctuating, will continue to monitor, prn hydralazine, blood pressure is good. 3. Stage IV colon cancer, s/p right katelyn-colectomy, sigmoid resection, on immunotherapy. Discussed with Dr. Ordoñez. He said patient was doing good on Keytruda for about 1-1/2 years. 4. The patient subsequent exploration with sigmoid resection and s/p right kidney/ureter/psoas resection Severe protein calorie malnutrition, present since admission: On IV TPN. N.p.o. 5. DVT prophylaxis- Heparin SC. Laboratory Results 09/09/18 17:34: POC Glucose 154 H 09/10/18 00:21: POC Glucose 150 H 09/10/18 06:30: Sodium 135 L, Potassium 4.3, Chloride 103, Carbon Dioxide 25.0, Anion Gap 7, BUN 24 H, Creatinine 1.42 H, Estim Creat Clear Calc 61.23, Est GFR (MDRD) Af Amer 65, Est GFR (MDRD) Non-Af 53 L, BUN/Creatinine Ratio 16.9, Glucose 156 H, Calcium 8.0 L 09/10/18 06:30: WBC 7.6, RBC 3.99 L, Hgb 13.4, Hct 39.6 L, MCV 99.2 H, MCH 33.6 H, MCHC 33.8, RDW 11.8, RDW Differential 42.5, Plt Count 178, MPV 9.4, Immature Gran % (Auto) 0.700, Neut % (Auto) 65.7, Lymph % (Auto) 7.4 L, [place] % (Auto) 23.4 H, Eos % (Auto) 2.4, Baso % (Auto) 0.4, Absolute Neuts (auto) 5.0, Absolute Lymphs (auto) 0.56 L, Total Counted Not Reportable 09/10/18 07:08: POC Glucose 158 H 09/10/18 12:22: POC Glucose 147 H Clinical Impression(s) from Imaging Studies Abdomen/Pelvis CT 09/03/18 16:30 IMPRESSION: 1. Findings consistent with a significant partial small bowel obstruction with an abrupt transition in the posterior mid abdomen proximity to prior postsurgical change. There is no other demonstrated obstructing pathology, so this may reflect an adhesion. There is moderate distention of the stomach with gas and undigested food status. No free gas. 2. Mural thickening of the distal esophagus, which may reflect local esophagitis. 3. Prior right nephrectomy. There is mild left renal caliectasis. 4. Prior cholecystectomy. The appendix not visualized. 5. Very small volume free fluid in the posterior pelvic region. 6. Degenerative changes of the spine, including mild rightward subluxation of L3 on L4 and dextroscoliosis centered at L2-3. Abdomen X-Ray 09/07/18 05:00 IMPRESSION: Small bowel obstruction with numerous air-fluid levels. A nasogastric tube is in place Code Visit Inpatient E&M: 37262 Subs Hosp L3
--- NOTE | 2018-09-10 14:55 | RAD_ITS ---
STUDY: X-RAY CHEST REASON FOR EXAM: Male, 62 years old. Shortness of breath dyspnea TECHNIQUE: Single AP portable view of the chest. COMPARISON: None. FINDINGS: There is an NG tube present the tip is in the stomach. There is minimal increased density within the right middle lobe. There is no demonstrated pleural abnormality. There is a right-sided Port-A-Cath tip is in the superior vena cava. Normal size heart. Normal mediastinum and lovely. Normal visualized pulmonary arteries. Normal visualized aortic arch and descending thoracic aorta. Normal visualized thoracic spine. Normal visualized ribs, clavicles, and shoulders. There is no demonstrated abnormality of the visualized soft tissue structures of the upper abdomen. RAD/Chest 1 View (Portable) IMPRESSION: NG tube is present the tip is in the stomach. Minimal right middle lobe atelectasis. Right-sided Port-A-Cath tip is in the spur vena cava. Electronically Signed: Christiane Sanderson MD at 19:49 EST Tel , Service support ,
[2018-09-10 15:10] LABS: AST(SGOT) 12 U/L (15-37); Alanine Aminotransfer ALT/SGPT 13 U/L (16-61); Albumin, Serum 2.1 g/dL (3.2-5.0); Alkaline Phosphatase 63 U/L (45-117); Bilirubin, Direct 0.16 mg/dL (0.00-0.30); Protein, Total 5.1 g/dL (6.4-8.2)
[2018-09-10] MEDS: Lactated Ringers 1,000 ML 50 ML IV ×2 (16:29→17:56)
--- NOTE | 2018-09-10 17:15 | PN.SURG_ITS ---
Patient Problems: Active and Suspected Problems Partial small bowel obstruction (Acute) Subjective: no complaints, visually the patient seems to have incisional pain - Physical Exam General: Alert, Oriented x3, Cooperative Lungs: Clear to auscultation, Normal air movement Cardiovascular: Regular rate, Regular Rhythm Abdomen: Soft, Hypoactive Bowel Sounds, Tender - a long incision, DEBI output serosanguineous Vital Signs Temp Pulse Resp BP Pulse Ox 98.0 F 101 H 16 159/87 H 97 09/10/18 16:00 09/10/18 16:00 09/10/18 16:00 09/10/18 16:00 09/10/18 16:00 Oxygen Flow Rate (L/min) 2 Oxygen Delivery Method Room Air Weight: 81.3 kg Body Mass Index (BMI) 21.8 Intake and Output for Last 24 Hours 09/08/18 09/09/18 09/10/18 23:59 23:59 23:59 Intake Total 4450 / 4450 4168.4 / 4168.4 3139 / 3139 Output Total 2660 / 2660 515 / 515 720 / 720 Balance 1790 / 1790 3653.4 / 3653.4 2419 / 2419 Laboratory Tests Past 24 Hrs 09/10/18 09/10/18 09/10/18 06:30 06:30 06:30 WBC 7.6 RBC 3.99 L Hgb 13.4 Hct 39.6 L MCV 99.2 H MCH 33.6 H MCHC 33.8 RDW 11.8 RDW Differential 42.5 Plt Count 178 MPV 9.4 Immature Gran % (Auto) 0.700 Neut % (Auto) 65.7 Lymph % (Auto) 7.4 L [place] % (Auto) 23.4 H Eos % (Auto) 2.4 Baso % (Auto) 0.4 Absolute Neuts (auto) 5.0 Absolute Lymphs (auto) 0.56 L Total Counted Not Reportable Sodium 135 L Potassium 4.3 Chloride 103 Carbon Dioxide 25.0 Anion Gap 7 BUN 24 H Creatinine 1.42 H Estim Creat Clear Calc 61.23 Est GFR (MDRD) Af Amer 65 Est GFR (MDRD) Non-Af 53 L BUN/Creatinine Ratio 16.9 Glucose 156 H Calcium 8.0 L Total Bilirubin 0.50 Direct Bilirubin 0.16 AST 12 L ALT 13 L Alkaline Phosphatase 63 Total Protein 5.1 L Albumin 2.1 L Globulin 3.0 POC Glucose 09/10/18 09/10/18 09/10/18 12:22 07:08 00:21 POC Glucose 147 H 158 H 150 H 09/09/18 17:34 POC Glucose 154 H Medical Necessity - Tobacco Use Smoking Status: Never smoker Assessment/Plan All Active Problems Partial small bowel obstruction (Acute) New onset atrial fibrillation (Resolved) Hypotension (Resolved) 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 Now with small bowel obstruction. noted improved with conservative management. Postoperatively #2 status post laparoscopic converted to exploratory laparotomy with very extensive lysis of adhesions-greater than 2 hours, repair of small bowel enterotomy and segmental small bowel resection due to stricture with compromised bowel noted at area of tightest band. Patient notes incisional pain. We started morphine APPLIED COMPUTER SCIENCE PROFESSOR to see if this improves his overall symptoms. he'll use the APPLIED COMPUTER SCIENCE PROFESSOR 6 times in the last 24 hours. I encouraged the patient to use it is necessary as he clinically seems to be having pain I performed we comfortable working on his incentive spirometer and ambulating. Nasogastric tube bridled in place and functioning well. We will encourage incentive spirometry, ambulation, patient chew gum and may use Cepacol throat lozenges if needed. Mosher catheter removed last evening. Urine output adequate. given his overall clinical status of protein wasting and failure for quick resolution - on TPN.
[2018-09-10] MEDS: Fat Emulsions 20% 250 ML IV (17:37)
[2018-09-10 18:15] LABS: Bedside Glucose 130 mg/dL (70-110)
[2018-09-10] MEDS: LORazepam 2 MG/ML Syringe 0.5 MG IV (20:17)
[2018-09-10] MEDS: 0.9% NaCl Peripheral Flush Adult/Peds IV (20:18)
[2018-09-11] VITALS (15 sets, daily range): BP systolic 123–150; BP diastolic 66–85; PULSE 80–96; RESP 16–24; TEMP 36.6–37.3; O2SAT 95–100
[2018-09-11] MEDS: LORazepam 2 MG/ML Syringe 0.5 MG IV (00:49)
[2018-09-11] MEDS: 0.9% NaCl Peripheral Flush Adult/Peds IV (00:49)
[2018-09-11] MEDS: Ondansetron 4 MG/2 ML Vial IV (00:50)
[2018-09-11 01:11] LABS: Bedside Glucose 125 mg/dL (70-110)
[2018-09-11] MEDS: Heparin Injection (Vial) 5,000 UNIT/ML VIAL 5000 UNIT SC ×3 (06:18→21:11)
[2018-09-11 06:36] LABS: Bedside Glucose 146 mg/dL (70-110)
[2018-09-11 07:23] LABS: Absolute Lymphocyte Count 0.57 X10^3/ul (0.83-4.51); Absolute Neutrophil Count 5.3 X10^3/uL (2.0-7.7); Basophil# 0.04 X10^3/uL; Basophil% 0.6 % (0-1); Differential Indicated SCAN CRITERIA MET; Eosinophil# 0.12 X10^3/uL; Eosinophils% 1.7 % (0-5); Hematocrit 39.7 % (40-54); Hemoglobin 13.1 g/dl (13.0-16.5); Lymphocyte # 0.57 X10^3/ul (4.0); Mean Corpuscular Hgb 32.8 pg (27.0-32.0); Mean Corpuscular Volume 99.3 fL (80-94); Mean Platelet Vol. 9.9 fl (6.2-12.0); Monocyte# 1.05 X10^3/uL; Monocyte% 14.7 % (0-10); Neutrophil # 5.27 X10^3/uL (2.7-7.7); Neutrophil % 73.7 % (47-70); POSITIVE COUNT NO; POSITIVE DIFFERENTIAL YES; POSITIVE MORPHOLOGY NO; Platelet Count 200 K/mm3 (150-450); RBC Distribution Width CV 11.6 % (11.6-14.6); RBC Distribution Width SD 41.7 fl (35.1-43.9); White Blood Count 7.1 K/mm3 (4.4-11.0)
[2018-09-11 07:46] LABS: Anion Gap 8 (5-15); BUN 20 mg/dL (7-18); BUN/Creat Ratio 13.5 RATIO (10-20); Calcium,Total 7.9 mg/dL (8.5-10.1); Chloride 100 mmol/L (98-107); Creatinine, Serum 1.48 mg/dL (0.70-1.30); EST Glomerular Filtration Rate 51 mL/min (>60); Est Glom Filt Rate - Afr Amer 62 mL/min (>60); Estimated Creatinine Clearance 58.75 ml/min; Glucose 130 mg/dL (74-106); Magnesium 1.9 mg/dL (1.6-2.6); Potassium 3.9 mmol/L (3.5-5.1); Sodium Level 136 mmol/L (136-145)
--- NOTE | 2018-09-11 10:40 | PN.SURG_ITS ---
Patient Problems: Active and Suspected Problems Partial small bowel obstruction (Acute) Subjective: no flatus - Physical Exam General: Alert, Oriented x3, Cooperative Lungs: Clear to auscultation, Normal air movement Cardiovascular: Regular rate, Regular Rhythm Abdomen: Soft, Hypoactive Bowel Sounds, Distended Vital Signs Temp Pulse Resp BP Pulse Ox 97.8 F 84 16 126/72 H 95 09/11/18 08:00 09/11/18 08:00 09/11/18 08:00 09/11/18 08:00 09/11/18 08:00 Oxygen Flow Rate (L/min) 2 Oxygen Delivery Method Room Air Weight: 81.3 kg Body Mass Index (BMI) 21.8 Intake and Output for Last 24 Hours 09/09/18 09/10/18 09/11/18 23:59 23:59 23:59 Intake Total 4168.4 / 4168.4 3955 / 3955 1926 / 1926 Output Total 515 / 515 920 / 920 1755 / 1755 Balance 3653.4 / 3653.4 3035 / 3035 171 / 171 Laboratory Tests Past 24 Hrs 09/10/18 09/11/18 09/11/18 06:30 06:55 06:55 WBC 7.1 RBC 4.00 L Hgb 13.1 Hct 39.7 L MCV 99.3 H MCH 32.8 H MCHC 33.0 RDW 11.6 RDW Differential 41.7 Plt Count 200 MPV 9.9 Immature Gran % (Auto) 1.300 H Neut % (Auto) 73.7 H Lymph % (Auto) 8.0 L [place] % (Auto) 14.7 H Eos % (Auto) 1.7 Baso % (Auto) 0.6 Absolute Neuts (auto) 5.3 Absolute Lymphs (auto) 0.57 L Total Counted Not Reportable Sodium 136 Potassium 3.9 Chloride 100 Carbon Dioxide 28.0 Anion Gap 8 BUN 20 H Creatinine 1.48 H Estim Creat Clear Calc 58.75 Est GFR (MDRD) Af Amer 62 Est GFR (MDRD) Non-Af 51 L BUN/Creatinine Ratio 13.5 Glucose 130 H Calcium 7.9 L Magnesium 1.9 Total Bilirubin 0.50 Direct Bilirubin 0.16 AST 12 L ALT 13 L Alkaline Phosphatase 63 Total Protein 5.1 L Albumin 2.1 L Globulin 3.0 POC Glucose 09/11/18 09/11/18 09/10/18 06:16 00:43 18:04 POC Glucose 146 H 125 H 130 H 09/10/18 12:22 POC Glucose 147 H Medical Necessity - Tobacco Use Smoking Status: Never smoker Assessment/Plan All Active Problems Partial small bowel obstruction (Acute) New onset atrial fibrillation (Resolved) Hypotension (Resolved) 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 Now with small bowel obstruction. noted improved with conservative management. Postoperatively #3 status post laparoscopic converted to exploratory laparotomy with very extensive lysis of adhesions-greater than 2 hours, repair of small b owel enterotomy and segmental small bowel resection due to stricture with compromised bowel noted at area of tightest band. Patient notes incisional pain. We started morphine BIOINFORMATICS DEVELOPER to see if this improves his overall symptoms. he'll use the BIOINFORMATICS DEVELOPER 6 times in the last 24 hours. I encouraged the patient to use it is necessary as he clinically seems to be having pain I performed we comfortable working on his incentive spirometer and ambulating. Nasogastric tube bridled in place and functioning well. We will encourage incentive spirometry, ambulation, patient chew gum and may use Cepacol throat l ozenges if needed. Mosher catheter removed last evening. Urine output adequate. given his overall clinical status of protein wasting and failure for quick resolution - on TPN.
[2018-09-11 12:10] LABS: Bedside Glucose 149 mg/dL (70-110)
--- NOTE | 2018-09-11 17:17 | PCM.PN.HOSP ---
Patient Problems: Active and Suspected Problems Partial small bowel obstruction (Acute) Subjective: Seen and examined. Patient gets occasional hiccups. Chest x-ray finding reviewed and discussed with the patient. One-time temperature 99.2?F but no fever. No tachycardia/tachypnea. Vitals/I&O's: Vital Signs Temp Pulse Resp BP Pulse Ox 99.1 F 90 18 143/81 H 100 09/11/18 16:00 09/11/18 16:00 09/11/18 16:00 09/11/18 16:00 09/11/18 16:00 Oxygen Flow Rate (L/min) 2 Oxygen Delivery Method Room Air Weight: 179 lb 3.773 oz Body Mass Index (BMI) 21.8 Intake and Output for Last 24 Hours 09/09/18 09/10/18 09/11/18 23:59 23:59 23:59 Intake Total 4168.4 / 4168.4 3955 / 3955 2500 / 2500 Output Total 515 / 515 920 / 920 2265 / 2265 Balance 3653.4 / 3653.4 3035 / 3035 235 / 235 General: Alert, Oriented x3, Cooperative HEENT: Atraumatic, PERRLA, EOMI, Normocephalic Oral: - - NG tube suction Neck: Supple, No JVD, Negative Carotid Bruits Lungs: Clear to auscultation, No rhonchi, No wheeze, Diminished - Air entry diminished in bilateral lung bases. Cardiovascular: Regular rate, Normal S1, Normal S2, No murmurs, - - Heart rate in 80s and 90s Abdomen: Bowel Sounds Present, Soft, Hypoactive Bowel Sounds, Tender Extremities: No edema, Capillary Refill Less than 3 Seconds Skin: No rashes, No breakdown Musculoskeletal: No Tenderness to Palpation of Joints or Extremities, Arthritic Changes, Muscle Wasting Neurological: Cranial nerves II-XII grossly intact Psych/Mental Status: Normal Affect, Appropriate Laboratory Results 09/10/18 18:04: POC Glucose 130 H 09/11/18 00:43: POC Glucose 125 H 09/11/18 06:16: POC Glucose 146 H 09/11/18 06:55: WBC 7.1, RBC 4.00 L, Hgb 13.1, Hct 39.7 L, MCV 99.3 H, MCH 32.8 H, MCHC 33.0, RDW 11.6, RDW Differential 41.7, Plt Count 200, MPV 9.9, Immature Gran % (Auto) 1.300 H, Neut % (Auto) 73.7 H, Lymph % (Auto) 8.0 L, [place] % (Auto) 14.7 H, Eos % (Auto) 1.7, Baso % (Auto) 0.6, Absolute Neuts (auto) 5.3, Absolute Lymphs (auto) 0.57 L, Total Counted Not Reportable 09/11/18 06:55: Sodium 136, Potassium 3.9, Chloride 100, Carbon Dioxide 28.0, Anion Gap 8, BUN 20 H, Creatinine 1.48 H, Estim Creat Clear Calc 58.75, Est GFR (MDRD) Af Amer 62, Est GFR (MDRD) Non-Af 51 L, BUN/Creatinine Ratio 13.5, Glucose 130 H, Calcium 7.9 L, Magnesium 1.9 09/11/18 12:08: POC Glucose 149 H Current Medications Dextrose (D50w Syringe) 0 gm IV X1 PRN; Protocol PRN Reason: Hypoglycemia Diphenhydramine HCl (Benadryl) 12.5 - 25 mg IV Q6H PRN PRN PRN Reason: ITCHING Diphenhydramine HCl (Benadryl) 12.5 - 25 mg PO Q6H PRN PRN PRN Reason: Pruritis Glucagon () 1 mg IM .X1 PRN PRN Reason: Hypoglycemia Heparin Sodium (Porcine) (Heparin Na) 5,000 unit SC Q8 [facility] Last Admin: 09/11/18 15:28 Dose: 5,000 unit Hydralazine HCl (Apresoline Iv) 5 mg IV Q4H PRN PRN PRN Reason: SBP > 160 Naloxone HCl 4 mg/ Dextrose 504 mls @ 0 mls/hr IV .Q0M PRN; Protocol PRN Reason: To maintain Resp. rate >10 Lactated Ringer's () 1,000 mls @ 50 mls/hr IV .Q20H [facility] Last Admin: 09/10/18 17:56 Dose: 50 mls/hr Multivitamins 10 ml/ Chromium/Copper/Manganese/Seleni/Zn 1 ml/ Folic Acid 1 mg/Famotidine 40 mg/ Amino Acids/Electrolytes 2,015.2 mls @ 84 mls/hr IV .Q24H [facility] Stop: 09/12/18 15:59 Last Admin: 09/11/18 16:07 Dose: 84 mls/hr Insulin Human Lispro (Humalog Kwikpen (Bkc)) 0 unit SQ Q6 [facility]; Protocol Last Admin: 09/11/18 12:56 Dose: Not Given Lorazepam (Ativan) 0.5 mg IV Q4H PRN PRN PRN Reason: RESTLESSNESS Last Admin: 09/11/18 00:49 Dose: 0.5 mg Magnesium Hydroxide (Milk Of Magnesia) 30 ml PO DAILY PRN PRN PRN Reason: Constipation Morphine Sulfate () 1 mg IV Q4H PRN PRN PRN Reason: PAIN Last Admin: 09/09/18 05:34 Dose: 1 mg Morphine Sulfate () 100 mg IV UD [facility]; Protocol Last Admin: 09/11/18 07:45 Dose: Not Given Naloxone HCl (Narcan) 0.02 mg IV Q1M PRN PRN Reason: RR <10 and pt unresponsive Ondansetron HCl (Zofran) 4 mg IV Q6H PRN PRN PRN Reason: NAUSEA/VOMITING Last Admin: 09/11/18 00:50 Dose: 4 mg Prochlorperazine Edisylate (Compazine Iv) 5 mg IV Q4H PRN PRN PRN Reason: NAUSEA/VOMITING Last Admin: 09/05/18 15:21 Dose: 5 mg Sodium Chloride () 5 - 15 ml IV UD PRN PRN Reason: SALINE FLUSH Last Admin: 09/11/18 00:49 Dose: 15 ml Throat Lozenges (Cepacol Sore Throat Lozenge) 1 lozenge MUCOUS MEM Q1H PRN PRN PRN Reason: SORE THROAT Medical Necessity - Tobacco Use Smoking Status: Never smoker Assessment/Plan All Active Problems Partial small bowel obstruction (Acute) New onset atrial fibrillation (Resolved) Hypotension (Resolved) This is a 62 year old M with past medical history of stage 4 colon cancer status post colectomy, s/p right katelyn-colectomy, sigmoid resection, s/p chemotherapy, on immunotherapy with Keytruda, admitted with abdominal pain, nausea; vomiting. CT abdomen/pelvis showed partial small bowel obstruction. 1. None resolving small bowel obstruction secondary to dense adhesions status post laparotomy and extensive adhesiolysis: postop day 1. Continue with gentle IV fluids, prn anti-emetics. on TPN -discussed with dietitian and pharmacist. Dr. Marx note reviewed. CT scan suggested distal small bowel obstruction. Serial KUBs does not show resolution of obstruction and patient was taken for surgery on 09/08. Patient had laparoscopic converted open laparotomy with extensive adhesiolysis, repair of single enterotomy and a small bowel resection with end-to-end anastomosis. Patient has positive fluid balance. DEBI drain only 20 mL. Possible right Lower lobe atelectasis: Patient has decreased air entry in right lung base. Portable chest x-ray ordered. Advised incentive spirometry. Sitting on recliner. 2. Elevated Blood pressure, no diagnosis of hypertension, BP has been fluctuating, will continue to monitor, prn hydralazine, blood pressure is good. 3. Stage IV colon cancer, s/p right katelyn-colectomy, sigmoid resection, on immunotherapy. Discussed with Dr. Ordoñez. He said patient was doing good on Keytruda for about 1-1/2 years. 4. The patient subsequent exploration with sigmoid resection and s/p right kidney/ureter/psoas resection Severe protein calorie malnutrition, present since admission: On IV TPN. N.p.o. 5. DVT prophylaxis- Heparin SC. Laboratory Results 09/10/18 18:04: POC Glucose 130 H 09/11/18 00:43: POC Glucose 125 H 09/11/18 06:16: POC Glucose 146 H 09/11/18 06:55: WBC 7.1, RBC 4.00 L, Hgb 13.1, Hct 39.7 L, MCV 99.3 H, MCH 32.8 H, MCHC 33.0, RDW 11.6, RDW Differential 41.7, Plt Count 200, MPV 9.9, Immature Gran % (Auto) 1.300 H, Neut % (Auto) 73.7 H, Lymph % (Auto) 8.0 L, Am[place] % (Auto) 14.7 H, Eos % (Auto) 1.7, Baso % (Auto) 0.6, Absolute Neuts (auto) 5.3, Absolute Lymphs (auto) 0.57 L, Total Counted Not Reportable 09/11/18 06:55: Sodium 136, Potassium 3.9, Chloride 100, Carbon Dioxide 28.0, Anion Gap 8, BUN 20 H, Creatinine 1.48 H, Estim Creat Clear Calc 58.75, Est GFR (MDRD) Af Amer 62, Est GFR (MDRD) Non-Af 51 L, BUN/Creatinine Ratio 13.5, Glucose 130 H, Calcium 7.9 L, Magnesium 1.9 09/11/18 12:08: POC Glucose 149 H Clinical Impression(s) from Imaging Studies Abdomen/Pelvis CT 09/03/18 16:30 IMPRESSION: 1. Findings consistent with a significant partial small bowel obstruction with an abrupt transition in the posterior mid abdomen proximity to prior postsurgical change. There is no other demonstrated obstructing pathology, so this may reflect an adhesion. There is moderate distention of the stomach with gas and undigested food status. No free gas. 2. Mural thickening of the distal esophagus, which may reflect local esophagitis. 3. Prior right nephrectomy. There is mild left renal caliectasis. 4. Prior cholecystectomy. The appendix not visualized. 5. Very small volume free fluid in the posterior pelvic region. 6. Degenerative changes of the spine, including mild rightward subluxation of L3 on L4 and dextroscoliosis centered at L2-3. Abdomen X-Ray 09/07/18 05:00 IMPRESSION: Small bowel obstruction with numerous air-fluid levels. A nasogastric tube is in place Chest X-Ray 09/10/18 14:55 IMPRESSION: NG tube is present the tip is in the stomach. Minimal right middle lobe atelectasis. Right-sided Port-A-Cath tip is in the spur vena cava. Code Visit Inpatient E&M: 26453 Subs Hosp L3
--- NOTE | 2018-09-11 17:21 | PN_ITS ---
Patient Problems: Active and Suspected Problems Partial small bowel obstruction (Acute) Subjective: Seen and examined. Patient gets occasional hiccups. Chest x-ray finding reviewed and discussed with the patient. One-time temperature 99.2?F but no fever. No tachycardia/tachypnea. Vitals/I&O's: Vital Signs Temp Pulse Resp BP Pulse Ox 99.1 F 90 18 143/81 H 100 09/11/18 16:00 09/11/18 16:00 09/11/18 16:00 09/11/18 16:00 09/11/18 16:00 Oxygen Flow Rate (L/min) 2 Oxygen Delivery Method Room Air Weight: 179 lb 3.773 oz Body Mass Index (BMI) 21.8 Intake and Output for Last 24 Hours 09/09/18 09/10/18 09/11/18 23:59 23:59 23:59 Intake Total 4168.4 / 4168.4 3955 / 3955 2500 / 2500 Output Total 515 / 515 920 / 920 2265 / 2265 Balance 3653.4 / 3653.4 3035 / 3035 235 / 235 General: Alert, Oriented x3, Cooperative HEENT: Atraumatic, PERRLA, EOMI, Normocephalic Oral: - - NG tube suction Neck: Supple, No JVD, Negative Carotid Bruits Lungs: Clear to auscultation, No rhonchi, No wheeze, Diminished - Air entry diminished in bilateral lung bases. Cardiovascular: Regular rate, Normal S1, Normal S2, No murmurs, - - Heart rate in 80s and 90s Abdomen: Bowel Sounds Present, Soft, Hypoactive Bowel Sounds, Tender Extremities: No edema, Capillary Refill Less than 3 Seconds Skin: No rashes, No breakdown Musculoskeletal: No Tenderness to Palpation of Joints or Extremities, Arthritic Changes, Muscle Wasting Neurological: Cranial nerves II-XII grossly intact Psych/Mental Status: Normal Affect, Appropriate Laboratory Results 09/10/18 18:04: POC Glucose 130 H 09/11/18 00:43: POC Glucose 125 H 09/11/18 06:16: POC Glucose 146 H 09/11/18 06:55: WBC 7.1, RBC 4.00 L, Hgb 13.1, Hct 39.7 L, MCV 99.3 H, MCH 32.8 H, MCHC 33.0, RDW 11.6, RDW Differential 41.7, Plt Count 200, MPV 9.9, Immature Gran % (Auto) 1.300 H, Neut % (Auto) 73.7 H, Lymph % (Auto) 8.0 L, [place] % (Auto) 14.7 H, Eos % (Auto) 1.7, Baso % (Auto) 0.6, Absolute Neuts (auto) 5.3, Absolute Lymphs (auto) 0.57 L, Total Counted Not Reportable 09/11/18 06:55: Sodium 136, Potassium 3.9, Chloride 100, Carbon Dioxide 28.0, Anion Gap 8, BUN 20 H, Creatinine 1.48 H, Estim Creat Clear Calc 58.75, Est GFR (MDRD) Af Amer 62, Est GFR (MDRD) Non-Af 51 L, BUN/Creatinine Ratio 13.5, Glucose 130 H, Calcium 7.9 L, Magnesium 1.9 09/11/18 12:08: POC Glucose 149 H Current Medications Dextrose (D50w Syringe) 0 gm IV X1 PRN; Protocol PRN Reason: Hypoglycemia Diphenhydramine HCl (Benadryl) 12.5 - 25 mg IV Q6H PRN PRN PRN Reason: ITCHING Diphenhydramine HCl (Benadryl) 12.5 - 25 mg PO Q6H PRN PRN PRN Reason: Pruritis Glucagon () 1 mg IM .X1 PRN PRN Reason: Hypoglycemia Heparin Sodium (Porcine) (Heparin Na) 5,000 unit SC Q8 [facility] Last Admin: 09/11/18 15:28 Dose: 5,000 unit Hydralazine HCl (Apresoline Iv) 5 mg IV Q4H PRN PRN PRN Reason: SBP > 160 Naloxone HCl 4 mg/ Dextrose 504 mls @ 0 mls/hr IV .Q0M PRN; Protocol PRN Reason: To maintain Resp. rate >10 Lactated Ringer's () 1,000 mls @ 50 mls/hr IV .Q20H [facility] Last Admin: 09/10/18 17:56 Dose: 50 mls/hr Multivitamins 10 ml/ Chromium/Copper/Manganese/Seleni/Zn 1 ml/ Folic Acid 1 m g/Famotidine 40 mg/ Amino Acids/Electrolytes 2,015.2 mls @ 84 mls/hr IV .Q24H [facility] Stop: 09/12/18 15:59 Last Admin: 09/11/18 16:07 Dose: 84 mls/hr Insulin Human Lispro (Humalog Kwikpen (Bkc)) 0 unit SQ Q6 [facility]; Protocol Last Admin: 09/11/18 12:56 Dose: Not Given Lorazepam (Ativan) 0.5 mg IV Q4H PRN PRN PRN Reason: RESTLESSNESS Last Admin: 09/11/18 00:49 Dose: 0.5 mg Magnesium Hydroxide (Milk Of Magnesia) 30 ml PO DAILY PRN PRN PRN Reason: Constipation Morphine Sulfate () 1 mg IV Q4H PRN PRN PRN Reason: PAIN Last Admin: 09/09/18 05:34 Dose: 1 mg Morphine Sulfate () 100 mg IV UD [facility]; Protocol Last Admin: 09/11/18 07:45 Dose: Not Given Naloxone HCl (Narcan) 0.02 mg IV Q1M PRN PRN Reason: RR <10 and pt unresponsive Ondansetron HCl (Zofran) 4 mg IV Q6H PRN PRN PRN Reason: NAUSEA/VOMITING Last Admin: 09/11/18 00:50 Dose: 4 mg Prochlorperazine Edisylate (Compazine Iv) 5 mg IV Q4H PRN PRN PRN Reason: NAUSEA/VOMITING Last Admin: 09/05/18 15:21 Dose: 5 mg Sodium Chloride () 5 - 15 ml IV UD PRN PRN Reason: SALINE FLUSH Last Admin: 09/11/18 00:49 Dose: 15 ml Throat Lozenges (Cepacol Sore Throat Lozenge) 1 lozenge MUCOUS MEM Q1H PRN PRN PRN Reason: SORE THROAT Medical Necessity - Tobacco Use Smoking Status: Never smoker Assessment/Plan All Active Problems Partial small bowel obstruction (Acute) New onset atrial fibrillation (Resolved) Hypotension (Resolved) This is a 62 year old M with past medical history of stage 4 colon cancer status post colectomy, s/p right katelyn-colectomy, sigmoid resection, s/p chemotherapy, on immunotherapy with Keytruda, admitted with abdominal pain, nausea; vomiting. CT abdomen/pelvis showed partial small bowel obstruction. 1. None resolving small bowel obstruction secondary to dense adhesions status post laparotomy and extensive adhesiolysis: postop day 1. Continue with gentle IV fluids, prn anti-emetics. on TPN -discussed with dietitian and pharmacist. Dr. Marx note reviewed. CT scan suggested distal small bowel obstruction. Serial KUBs does not show resolution of obstruction and patient was taken for surgery on 09/08. Patient had laparoscopic converted open laparotomy with extensive adhesiolysis, repair of single enterotomy and a small bowel resection with end-to-end anastomosis. Patient has positive fluid balance. DEBI drain only 20 mL. Possible right Lower lobe atelectasis: Patient has decreased air entry in right lung base. Portable chest x-ray ordered. Advised incentive spirometry. Sitting on recliner. 2. Elevated Blood pressure, no diagnosis of hypertension, BP has been fluctuating, will continue to monitor, prn hydralazine, blood pressure is good. 3. Stage IV colon cancer, s/p right katelyn-colectomy, sigmoid resection, on immunotherapy. Discussed with Dr. Ordoñez. He said patient was doing good on Keytruda for about 1-1/2 years. 4. The patient subsequent exploration with sigmoid resection and s/p right kidney/ureter/psoas resection Severe protein calorie malnutrition, present since admission: On IV TPN. N.p.o. 5. DVT prophylaxis- Heparin SC. Laboratory Results 09/10/18 18:04: POC Glucose 130 H 09/11/18 00:43: POC Glucose 125 H 09/11/18 06:16: POC Glucose 146 H 09/11/18 06:55: WBC 7.1, RBC 4.00 L, Hgb 13.1, Hct 39.7 L, MCV 99.3 H, MCH 32.8 H, MCHC 33.0, RDW 11.6, RDW Differential 41.7, Plt Count 200, MPV 9.9, Immature Gran % (Auto) 1.300 H, Neut % (Auto) 73.7 H, Lymph % (Auto) 8.0 L, [place] % (Auto) 14.7 H, Eos % (Auto) 1.7, Baso % (Auto) 0.6, Absolute Neuts (auto) 5.3, Absolute Lymphs (auto) 0.57 L, Total Counted Not Reportable 09/11/18 06:55: Sodium 136, Potassium 3.9, Chloride 100, Carbon Dioxide 28.0, Anion Gap 8, BUN 20 H, Creatinine 1.48 H, Estim Creat Clear Calc 58.75, Est GFR (MDRD) Af Amer 62, Est GFR (MDRD) Non-Af 51 L, BUN/Creatinine Ratio 13.5, Glucose 130 H, Calcium 7.9 L, Magnesium 1.9 09/11/18 12:08: POC Glucose 149 H Clinical Impression(s) from Imaging Studies Abdomen/Pelvis CT 09/03/18 16:30 IMPRESSION: 1. Findings consistent with a significant partial small bowel obstruction with an abrupt transition in the posterior mid abdomen proximity to prior postsurgical change. There is no other demonstrated obstructing pathology, so this may reflect an adhesion. There is moderate distention of the stomach with gas and undigested food status. No free gas. 2. Mural thickening of the distal esophagus, which may reflect local esophagitis. 3. Prior right nephrectomy. There is mild left renal caliectasis. 4. Prior cholecystectomy. The appendix not visualized. 5. Very small volume free fluid in the posterior pelvic region. 6. Degenerative changes of the spine, including mild rightward subluxation of L3 on L4 and dextroscoliosis centered at L2-3. Abdomen X-Ray 09/07/18 05:00 IMPRESSION: Small bowel obstruction with numerous air-fluid levels. A nasogastric tube is in place Chest X-Ray 09/10/18 14:55 IMPRESSION: NG tube is present the tip is in the stomach. Minimal right middle lobe atelectasis. Right-sided Port-A-Cath tip is in the spur vena cava. Code Visit Inpatient E&M: 24558 Subs Hosp L3
[2018-09-11 18:31] LABS: Bedside Glucose 146 mg/dL (70-110)
[2018-09-12] VITALS (11 sets, daily range): BP systolic 110–131; BP diastolic 56–81; PULSE 80–88; RESP 17–19; TEMP 36.6–37.3; O2SAT 94–100
[2018-09-12 00:10] LABS: Bedside Glucose 155 mg/dL (70-110)
[2018-09-12] MEDS: Insulin Lispro 100 UNIT/ML INSULN.PEN SQ ×2 (00:18→06:57)
[2018-09-12] MEDS: LORazepam 2 MG/ML Syringe 0.5 MG IV ×2 (04:17→21:49)
[2018-09-12] MEDS: Lactated Ringers 1,000 ML 50 ML IV (04:18)
[2018-09-12] MEDS: Heparin Injection (Vial) 5,000 UNIT/ML VIAL 5000 UNIT SC ×3 (06:56→21:50)
[2018-09-12 07:05] LABS: Bedside Glucose 154 mg/dL (70-110)
[2018-09-12 07:26] LABS: Absolute Lymphocyte Count 0.68 X10^3/ul (0.83-4.51); Absolute Neutrophil Count 5.8 X10^3/uL (2.0-7.7); Basophil# 0.03 X10^3/uL; Basophil% 0.4 % (0-1); Eosinophil# 0.17 X10^3/uL; Eosinophils% 2.2 % (0-5); Hematocrit 41.1 % (40-54); Hemoglobin 13.7 g/dl (13.0-16.5); Lymphocyte # 0.68 X10^3/ul (4.0); Lymphocyte % 8.7 % (19-41); Mean Corp Hgb Conc 33.3 g/gl (32-36); Mean Corpuscular Hgb 32.2 pg (27.0-32.0); Mean Corpuscular Volume 96.7 fL (80-94); Mean Platelet Vol. 9.7 fl (6.2-12.0); Monocyte# 1.11 X10^3/uL; Monocyte% 14.1 % (0-10); Neutrophil # 5.83 X10^3/uL (2.7-7.7); Neutrophil % 74.2 % (47-70); Platelet Count 220 K/mm3 (150-450); RBC Distribution Width CV 12.1 % (11.6-14.6); RBC Distribution Width SD 43.1 fl (35.1-43.9); Red Blood Count 4.25 M/mm3 (4.6-6.2); White Blood Count 7.9 K/mm3 (4.4-11.0)
[2018-09-12 07:29] LABS: POSITIVE COUNT NO; POSITIVE DIFFERENTIAL NO; POSITIVE MORPHOLOGY NO
[2018-09-12 07:35] LABS: Anion Gap 8 (5-15); BUN 20 mg/dL (7-18); BUN/Creat Ratio 17.7 RATIO (10-20); Chloride 104 mmol/L (98-107); Creatinine, Serum 1.13 mg/dL (0.70-1.30); EST Glomerular Filtration Rate 70 mL/min (>60); Est Glom Filt Rate - Afr Amer 84 mL/min (>60); Estimated Creatinine Clearance 76.94 ml/min; Glucose 150 mg/dL (74-106); Potassium 3.9 mmol/L (3.5-5.1); Sodium Level 135 mmol/L (136-145)
--- NOTE | 2018-09-12 09:38 | PCM.PN.SRG ---
Patient Problems: Active and Suspected Problems Partial small bowel obstruction (Acute) Subjective: still no flatus, some occasional bowel cramping - Physical Exam General: Alert, Oriented x3, Cooperative Lungs: Clear to auscultation, Normal air movement Cardiovascular: Regular rate, No murmurs Abdomen: Soft, Bowel Sounds Not Present, Tender - long incision, Eric-Feng with serous output Vital Signs Temp Pulse Resp BP Pulse Ox 99.0 F 88 17 124/77 H 97 09/12/18 06:51 09/12/18 06:51 09/12/18 06:51 09/12/18 06:51 09/12/18 06:51 Oxygen Flow Rate (L/min) 2 Oxygen Delivery Method Room Air Weight: 81.3 kg Body Mass Index (BMI) 21.8 Intake and Output for Last 24 Hours 09/10/18 09/11/18 09/12/18 23:59 23:59 23:59 Intake Total 3955 / 3955 3065 / 3065 1831 / 1831 Output Total 920 / 920 2730 / 2730 1567 / 1567 Balance 3035 / 3035 335 / 335 264 / 264 Laboratory Tests Past 24 Hrs 09/12/18 09/12/18 06:37 06:37 WBC 7.9 RBC 4.25 L Hgb 13.7 Hct 41.1 MCV 96.7 H MCH 32.2 H MCHC 33.3 RDW 12.1 RDW Differential 43.1 Plt Count 220 MPV 9.7 Immature Gran % (Auto) 0.400 Neut % (Auto) 74.2 H Lymph % (Auto) 8.7 L Brooks % (Auto) 14.1 H Eos % (Auto) 2.2 Baso % (Auto) 0.4 Absolute Neuts (auto) 5.8 Absolute Lymphs (auto) 0.68 L Total Counted Not Reportable Sodium 135 L Potassium 3.9 Chloride 104 Carbon Dioxide 23.0 Anion Gap 8 BUN 20 H Creatinine 1.13 Estim Creat Clear Calc 76.94 Est GFR (MDRD) Af Amer 84 Est GFR (MDRD) Non-Af 70 BUN/Creatinine Ratio 17.7 Glucose 150 H Calcium 8.0 L POC Glucose 09/12/18 09/12/18 09/11/18 06:55 00:03 18:21 POC Glucose 154 H 155 H 146 H 09/11/18 12:08 POC Glucose 149 H Medical Necessity - Tobacco Use Smoking Status: Never smoker Assessment/Plan All Active Problems Partial small bowel obstruction (Acute) New onset atrial fibrillation (Resolved) Hypotension (Resolved) 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 Now with small bowel obstruction. noted improved with conservative management. Postoperatively #4 status post laparoscopic converted to exploratory laparotomy with very extensive lysis of adhesions-greater than 2 hours, repair of small bowel enterotomy and segmental small bowel resection due to stricture with compromised bowel noted at area of tightest band. Patient notes incisional pain. Continue morphine [employer]ELOP[employer] SCI[employer]. Nasogastric tube bridled in place and functioning well. We will encourage incentive spirometry, ambulation, patient chew gum and may use Cepacol throat lozenges if needed. Mosher catheter removed. some urinary incontinence-seemingly urine output adequate. given his overall clinical status of protein wasting and failure for quick resolution - on TPN.
--- NOTE | 2018-09-12 15:13 | PCM.PN.HOSP ---
Patient Problems: Active and Suspected Problems Partial small bowel obstruction (Acute) Subjective: No fever or chills. No tachypnea. Patient has mild cough. Encouraged to do incentive spirometry. Patient was later seen walking around the nursing station. Mild abdominal pain Vitals/I&O's: Vital Signs Temp Pulse Resp BP Pulse Ox 99.1 F 80 18 131/72 H 95 09/12/18 14:00 09/12/18 14:00 09/12/18 14:00 09/12/18 14:00 09/12/18 14:00 Oxygen Flow Rate (L/min) 2 Oxygen Delivery Method Room Air Weight: 179 lb 3.773 oz Body Mass Index (BMI) 21.8 Intake and Output for Last 24 Hours 09/10/18 09/11/18 09/12/18 23:59 23:59 23:59 Intake Total 3955 / 3955 3065 / 3065 1831 / 1831 Output Total 920 / 920 2730 / 2730 1567 / 1567 Balance 3035 / 3035 335 / 335 264 / 264 General: Alert, Oriented x3, Cooperative HEENT: Atraumatic, PERRLA, EOMI, Normocephalic Neck: Supple, No JVD, Negative Carotid Bruits Lungs: Clear to auscultation, No rhonchi, No wheeze, No rales, Diminished - Air entry diminished in bilateral lung bases, right more than left. Cardiovascular: Regular rate, Regular Rhythm, Normal S1, Normal S2, No murmurs Abdomen: Bowel Sounds Present, Soft, Hypoactive Bowel Sounds - , postoperative., Tender - Generalized tenderness, - - NG tube present Extremities: No edema, Capillary Refill Less than 3 Seconds Skin: No rashes, No breakdown Musculoskeletal: No Tenderness to Palpation of Joints or Extremities, Arthritic Changes, Muscle Wasting Neurological: Cranial nerves II-XII grossly intact, Deep Tendon Reflexes 2+/4 and Symmetrical, Neuro grossly intact Psych/Mental Status: Normal Affect, Appropriate Laboratory Results 09/11/18 18:21: POC Glucose 146 H 09/12/18 00:03: POC Glucose 155 H 09/12/18 06:37: WBC 7.9, RBC 4.25 L, Hgb 13.7, Hct 41.1, MCV 96.7 H, MCH 32.2 H, MCHC 33.3, RDW 12.1, RDW Differential 43.1, Plt Count 220, MPV 9.7, Immature Gran % (Auto) 0.400, Neut % (Auto) 74.2 H, Lymph % (Auto) 8.7 L, [place] % (Auto) 14.1 H, Eos % (Auto) 2.2, Baso % (Auto) 0.4, Absolute Neuts (auto) 5.8, Absolute Lymphs (auto) 0.68 L, Total Counted Not Reportable 09/12/18 06:37: Sodium 135 L, Potassium 3.9, Chloride 104, Carbon Dioxide 23.0, Anion Gap 8, BUN 20 H, Creatinine 1.13, Estim Creat Clear Calc 76.94, Est GFR (MDRD) Af Amer 84, Est GFR (MDRD) Non-Af 70, BUN/Creatinine Ratio 17.7, Glucose 150 H, Calcium 8.0 L 09/12/18 06:55: POC Glucose 154 H Current Medications Dextrose (D50w Syringe) 0 gm IV X1 PRN; Protocol PRN Reason: Hypoglycemia Diphenhydramine HCl (Benadryl) 12.5 - 25 mg IV Q6H PRN PRN PRN Reason: ITCHING Diphenhydramine HCl (Benadryl) 12.5 - 25 mg PO Q6H PRN PRN PRN Reason: Pruritis Glucagon () 1 mg IM .X1 PRN PRN Reason: Hypoglycemia Heparin Sodium (Porcine) (Heparin Na) 5,000 unit SC Q8 [facility] Last Admin: 09/12/18 06:56 Dose: 5,000 unit Hydralazine HCl (Apresoline Iv) 5 mg IV Q4H PRN PRN PRN Reason: SBP > 160 Naloxone HCl 4 mg/ Dextrose 504 mls @ 0 mls/hr IV .Q0M PRN; Protocol PRN Reason: To maintain Resp. rate >10 Lactated Ringer's () 1,000 mls @ 50 mls/hr IV .Q20H [facility] Last Admin: 09/12/18 04:18 Dose: 50 mls/hr Multivitamins 10 ml/ Chromium/Copper/Manganese/Seleni/Zn 1 ml/ Folic Acid 1 mg/Famotidine 40 mg/ Amino Acids/Electrolytes 2,015.2 mls @ 84 mls/hr IV .Q24H [facility] Stop: 09/12/18 15:59 Last Admin: 09/11/18 16:07 Dose: 84 mls/hr Multivitamins 10 ml/ Chromium/Copper/Manganese/Seleni/Zn 1 ml/ Folic Acid 1 mg/Famotidine 40 mg/ Amino Acids/Electrolytes 2,015.2 mls @ 84 mls/hr IV .Q24H [facility] Stop: 09/13/18 15:59 Insulin Human Lispro (Humalog Kwikpen (Bkc)) 0 unit SQ Q6 [facility]; Protocol Last Admin: 09/12/18 14:50 Dose: Not Given Lorazepam (Ativan) 0.5 mg IV Q4H PRN PRN PRN Reason: RESTLESSNESS Last Admin: 09/12/18 04:17 Dose: 0.5 mg Magnesium Hydroxide (Milk Of Magnesia) 30 ml PO DAILY PRN PRN PRN Reason: Constipation Morphine Sulfate () 1 mg IV Q4H PRN PRN PRN Reason: PAIN Last Admin: 09/09/18 05:34 Dose: 1 mg Morphine Sulfate () 100 mg IV UD [facility]; Protocol Last Admin: 09/12/18 14:51 Dose: Not Given Naloxone HCl (Narcan) 0.02 mg IV Q1M PRN PRN Reason: RR <10 and pt unresponsive Ondansetron HCl (Zofran) 4 mg IV Q6H PRN PRN PRN Reason: NAUSEA/VOMITING Last Admin: 09/11/18 00:50 Dose: 4 mg Prochlorperazine Edisylate (Compazine Iv) 5 mg IV Q4H PRN PRN PRN Reason: NAUSEA/VOMITING Last Admin: 09/05/18 15:21 Dose: 5 mg Sodium Chloride () 5 - 15 ml IV UD PRN PRN Reason: SALINE FLUSH Last Admin: 09/11/18 00:49 Dose: 15 ml Throat Lozenges (Cepacol Sore Throat Lozenge) 1 lozenge MUCOUS MEM Q1H PRN PRN PRN Reason: SORE THROAT Medical Necessity - Tobacco Use Smoking Status: Never smoker Assessment/Plan All Active Problems Partial small bowel obstruction (Acute) New onset atrial fibrillation (Resolved) Hypotension (Resolved) This is a 62 year old M with past medical history of stage 4 colon cancer status post colectomy, s/p right katelyn-colectomy, sigmoid resection, s/p chemotherapy, on immunotherapy with Keytruda, admitted with abdominal pain, nausea; vomiting. CT abdomen/pelvis showed partial small bowel obstruction. 1. None resolving small bowel obstruction secondary to dense adhesions status post laparotomy and extensive adhesiolysis: postop day 1. Continue with gentle IV fluids, prn anti-emetics. on TPN -discussed with dietitian and pharmacist. Dr. Marx note reviewed. CT scan suggested distal small bowel obstruction. Serial KUBs does not show resolution of obstruction and patient was taken for surgery on 09/08. Patient had laparoscopic converted open laparotomy with extensive adhesiolysis, repair of single enterotomy and a small bowel resection with end-to-end anastomosis. Patient input and output is almost similar. DEBI drain minimal 5 mL Possible right Lower lobe atelectasis: Patient has decreased air entry in right lung base. Patient has right middle lobe atelectasis. Advised incentive spirometry. Sitting on recliner. 2. Elevated Blood pressure, no diagnosis of hypertension, BP has been fluctuating, will continue to monitor, prn hydralazine, blood pressure is good. 3. Stage IV colon cancer, s/p right katelyn-colectomy, sigmoid resection, on immunotherapy. Discussed with Dr. Ordoñez. He said patient was doing good on Keytruda for about 1-1/2 years. 4. The patient subsequent exploration with sigmoid resection and s/p right kidney/ureter/psoas resection Severe protein calorie malnutrition, present since admission: On IV TPN. N.p.o. 5. DVT prophylaxis- Heparin SC. The care was discussed with the patient and his mother near the bedside. Laboratory Results 09/11/18 18:21: POC Glucose 146 H 09/12/18 00:03: POC Glucose 155 H 09/12/18 06:37: WBC 7.9, RBC 4.25 L, Hgb 13.7, Hct 41.1, MCV 96.7 H, MCH 32.2 H, MCHC 33.3, RDW 12.1, RDW Differential 43.1, Plt Count 220, MPV 9.7, Immature Gran % (Auto) 0.400, Neut % (Auto) 74.2 H, Lymph % (Auto) 8.7 L, [place] % (Auto) 14.1 H, Eos % (Auto) 2.2, Baso % (Auto) 0.4, Absolute Neuts (auto) 5.8, Absolute Lymphs (auto) 0.68 L, Total Counted Not Reportable 09/12/18 06:37: Sodium 135 L, Potassium 3.9, Chloride 104, Carbon Dioxide 23.0, Anion Gap 8, BUN 20 H, Creatinine 1.13, Estim Creat Clear Calc 76.94, Est GFR (MDRD) Af Amer 84, Est GFR (MDRD) Non-Af 70, BUN/Creatinine Ratio 17.7, Glucose 150 H, Calcium 8.0 L 09/12/18 06:55: POC Glucose 154 H Clinical Impression(s) from Imaging Studies Abdomen/Pelvis CT 09/03/18 16:30 IMPRESSION: 1. Findings consistent with a significant partial small bowel obstruction with an abrupt transition in the posterior mid abdomen proximity to prior postsurgical change. There is no other demonstrated obstructing pathology, so this may reflect an adhesion. There is moderate distention of the stomach with gas and undigested food status. No free gas. 2. Mural thickening of the distal esophagus, which may reflect local esophagitis. 3. Prior right nephrectomy. There is mild left renal caliectasis. 4. Prior cholecystectomy. The appendix not visualized. 5. Very small volume free fluid in the posterior pelvic region. 6. Degenerative changes of the spine, including mild rightward subluxation of L3 on L4 and dextroscoliosis centered at L2-3. Abdomen X-Ray 09/07/18 05:00 IMPRESSION: Small bowel obstruction with numerous air-fluid levels. A nasogastric tube is in place Chest X-Ray 09/10/18 14:55 IMPRESSION: NG tube is present the tip is in the stomach. Minimal right middle lobe atelectasis. Right-sided Port-A-Cath tip is in the spur vena cava. Code Visit Inpatient E&M: 99856 Subs Hosp L3
[2018-09-12 18:20] LABS: Bedside Glucose 140 mg/dL (70-110)
[2018-09-12] MEDS: Ondansetron 4 MG/2 ML Vial IV (22:29)
[2018-09-13] VITALS (10 sets, daily range): BP systolic 108–139; BP diastolic 53–83; PULSE 82–93; RESP 16–18; TEMP 36.6–37.6; O2SAT 94–100
[2018-09-13] MEDS: Lactated Ringers 1,000 ML 30 ML IV (00:04)
[2018-09-13 00:16] LABS: Bedside Glucose 141 mg/dL (70-110)
[2018-09-13] MEDS: LORazepam 2 MG/ML Syringe 0.5 MG IV ×2 (01:49→22:13)
[2018-09-13] MEDS: Heparin Injection (Vial) 5,000 UNIT/ML VIAL 5000 UNIT SC ×3 (06:19→22:13)
[2018-09-13 06:26] LABS: Bedside Glucose 133 mg/dL (70-110)
--- NOTE | 2018-09-13 09:09 | PN.SURG_ITS ---
Patient Problems: Active and Suspected Problems Partial small bowel obstruction (Acute) Subjective: no flatus - Physical Exam General: Alert, Oriented x3, Cooperative Lungs: Clear to auscultation, Normal air movement Cardiovascular: Regular rate, Regular Rhythm Abdomen: Non Tender, Hypoactive Bowel Sounds, Tender - along incision Vital Signs Temp Pulse Resp BP Pulse Ox 97.8 F 89 16 118/62 100 09/13/18 05:40 09/13/18 05:40 09/13/18 06:00 09/13/18 05:40 09/13/18 06:00 Oxygen Flow Rate (L/min) 2 Oxygen Delivery Method Room Air Weight: 81.3 kg Body Mass Index (BMI) 21.8 Intake and Output for Last 24 Hours 09/11/18 09/12/18 09/13/18 23:59 23:59 23:59 Intake Total 3065 / 3065 3382 / 3382 1932 / 1932 Output Total 2730 / 2730 2887 / 2887 1310 / 1310 Balance 335 / 335 495 / 495 622 / 622 POC Glucose 09/13/18 09/13/18 09/12/18 06:18 00:00 18:12 POC Glucose 133 H 141 H 140 H Medical Necessity - Tobacco Use Smoking Status: Never smoker Assessment/Plan All Active Problems Partial small bowel obstruction (Acute) New onset atrial fibrillation (Resolved) Hypotension (Resolved) 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 Now with small bowel obstruction. noted improved with conservative management. Postoperatively #5 status post laparoscopic converted to exploratory laparotomy with very extensive lysis of adhesions-greater than 2 hours, repair of small bowel enterotomy and segmental small bowel resection due to stricture with compromised bowel noted at area of tightest band. Patient notes incisional pain. 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 Nasogastric tube bridled in place and functioning well. We will encourage incentive spirometry, ambulation, patient chew gum and may use Cepacol throat lozenges if needed. Mosher catheter removed. some urinary incontinence- seemingly urine output adequate. given his overall clinical status of protein wasting and failure for quick resolution - on TPN.
--- NOTE | 2018-09-13 09:17 | RAD_ITS ---
STUDY: X-RAY - ABDOMEN/PELVIS REASON FOR EXAM: Male, 62 years old. TECHNIQUE: COMPARISON: September 08, 2018 FINDINGS: Normal visualized lung bases. There are a few air-fluid level seen in the left upper quadrant which are in the jejunal loops There is no demonstrated free abdominal air. The visualized liver, spleen and kidneys are grossly normal in size and morphology. There are multiple metallic clips within the abdomen due to previous surgery. NG tube is seen with the tip in the stomach. There is a peritoneal dialysis catheter in place. Normal soft tissue structures. There are multiple hypertrophic degenerative changes and narrowing of the disks in the lumbar spine.. RAD/Abd Inc Decub and/or Erect IMPRESSION: Still noted the multiple air-fluid level within the jejunal loops in the left upper quadrant with minimal improvement since the study of September 08, 2018. Electronically Signed: Sarah Salgado, at 12:06 EST Tel , Service support ,
[2018-09-13] MEDS: 0.9% NaCl Peripheral Flush Adult/Peds IV ×2 (09:26→22:12)
--- NOTE | 2018-09-13 10:17 | PCM.PN.HOSP ---
Patient Problems: Active and Suspected Problems Partial small bowel obstruction (Acute) Subjective: Pain is controlled, and he is ambulating. Still no flatus or BM. NGT in place Vitals/I&O's: Vital Signs Temp Pulse Resp BP Pulse Ox 97.9 F 82 18 133/77 H 99 09/13/18 09:30 09/13/18 09:30 09/13/18 09:30 09/13/18 09:30 09/13/18 09:30 Oxygen Flow Rate (L/min) 2 Oxygen Delivery Method Room Air Weight: 179 lb 3.773 oz Body Mass Index (BMI) 21.8 Intake and Output for Last 24 Hours 09/11/18 09/12/18 09/13/18 23:59 23:59 23:59 Intake Total 3065 / 3065 3382 / 3382 1932 / 1932 Output Total 2730 / 2730 2887 / 2887 1310 / 1310 Balance 335 / 335 495 / 495 622 / 622 General: Alert, Oriented x3, Cooperative, No apparent distress HEENT: Atraumatic, EOMI, Normocephalic, - - NGT Oral: Moist Mucosa Neck: Supple, No JVD Lungs: Clear to auscultation, Normal air movement, No rhonchi, No wheeze, No rales Cardiovascular: Regular rate, Regular Rhythm, Normal S1, Normal S2, No murmurs Abdomen: Soft, Non-Distended, No Hepato-splenomegaly, Tender - around incision Extremities: No edema, Capillary Refill Less than 3 Seconds Skin: No rashes, No breakdown, Incision - CDI Neurological: Neuro grossly intact, Sensory exam intact to light touch and pain Psych/Mental Status: Normal Affect, Appropriate Laboratory Results 09/12/18 18:12: POC Glucose 140 H 09/13/18 00:00: POC Glucose 141 H 09/13/18 06:18: POC Glucose 133 H Current Medications Dextrose (D50w Syringe) 0 gm IV X1 PRN; Protocol PRN Reason: Hypoglycemia Diphenhydramine HCl (Benadryl) 12.5 - 25 mg IV Q6H PRN PRN PRN Reason: ITCHING Diphenhydramine HCl (Benadryl) 12.5 - 25 mg PO Q6H PRN PRN PRN Reason: Pruritis Glucagon () 1 mg IM .X1 PRN PRN Reason: Hypoglycemia Heparin Sodium (Porcine) (Heparin Na) 5,000 unit SC Q8 [facility] Last Admin: 09/13/18 06:19 Dose: 5,000 unit Hydralazine HCl (Apresoline Iv) 5 mg IV Q4H PRN PRN PRN Reason: SBP > 160 Naloxone HCl 4 mg/ Dextrose 504 mls @ 0 mls/hr IV .Q0M PRN; Protocol PRN Reason: To maintain Resp. rate >10 Multivitamins 10 ml/ Chromium/Copper/Manganese/Seleni/Zn 1 ml/ Folic Acid 1 mg/Famotidine 40 mg/ Amino Acids/Electrolytes 2,015.2 mls @ 84 mls/hr IV .Q24H [facility] Stop: 09/13/18 15:59 Last Admin: 09/12/18 15:41 Dose: 84 mls/hr Lactated Ringer's () 1,000 mls @ 30 mls/hr IV .[id number] [facility] Last Admin: 09/13/18 00:04 Dose: 30 mls/hr Multivitamins 10 ml/ Chromium/Copper/Manganese/Seleni/Zn 1 ml/ Folic Acid 1 mg/Famotidine 40 mg/ Amino Acids/Electrolytes 2,015.2 mls @ 84 mls/hr IV .Q24H [facility] Stop: 09/14/18 15:59 Fat Emulsion Intravenous (Intralipid 20%) 250 mls @ 21 mls/hr IV .[id number] [facility] Stop: 09/14/18 03:54 Insulin Human Lispro (Humalog Kwikpen (Bkc)) 0 unit SQ Q6 [facility]; Protocol Last Admin: 09/13/18 06:18 Dose: Not Given Lorazepam (Ativan) 0.5 mg IV Q4H PRN PRN PRN Reason: RESTLESSNESS Last Admin: 09/13/18 01:49 Dose: 0.5 mg Magnesium Hydroxide (Milk Of Magnesia) 30 ml PO DAILY PRN PRN PRN Reason: Constipation Morphine Sulfate () 1 mg IV Q4H PRN PRN PRN Reason: PAIN Last Admin: 09/09/18 05:34 Dose: 1 mg Morphine Sulfate () 100 mg IV UD [facility]; Protocol Last Admin: 09/12/18 14:51 Dose: Not Given Naloxone HCl (Narcan) 0.02 mg IV Q1M PRN PRN Reason: RR <10 and pt unresponsive Ondansetron HCl (Zofran) 4 mg IV Q6H PRN PRN PRN Reason: NAUSEA/VOMITING Last Admin: 09/12/18 22:29 Dose: 4 mg Phenol/Menthol (Chloraseptic (Bkc)) 3 spray MM Q2H PRN PRN PRN Reason: SORE THROAT Prochlorperazine Edisylate (Compazine Iv) 5 mg IV Q4H PRN PRN PRN Reason: NAUSEA/VOMITING Last Admin: 09/05/18 15:21 Dose: 5 mg Sodium Chloride () 5 - 15 ml IV UD PRN PRN Reason: SALINE FLUSH Last Admin: 09/13/18 09:26 Dose: 15 ml Throat Lozenges (Cepacol Sore Throat Lozenge) 1 lozenge MUCOUS MEM Q1H PRN PRN PRN Reason: SORE THROAT Medical Necessity - Tobacco Use Smoking Status: Never smoker Assessment/Plan All Active Problems Partial small bowel obstruction (Acute) New onset atrial fibrillation (Resolved) Hypotension (Resolved) 1. 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 Stage 4 colon cancer - Resected in 2016 and being treated with Keytruda which he is tolerating well 3. CHRISTIAN-resolved 4. HTN - resolved, no medications necessary DVT: Heparin SC Code Visit Inpatient E&M: 98726 Subs Hosp L2
--- NOTE | 2018-09-13 10:25 | PN_ITS ---
Patient Problems: Active and Suspected Problems Partial small bowel obstruction (Acute) Subjective: Pain is controlled, and he is ambulating. Still no flatus or BM. NGT in place Vitals/I&O's: Vital Signs Temp Pulse Resp BP Pulse Ox 97.9 F 82 18 133/77 H 99 09/13/18 09:30 09/13/18 09:30 09/13/18 09:30 09/13/18 09:30 09/13/18 09:30 Oxygen Flow Rate (L/min) 2 Oxygen Delivery Method Room Air Weight: 179 lb 3.773 oz Body Mass Index (BMI) 21.8 Intake and Output for Last 24 Hours 09/11/18 09/12/18 09/13/18 23:59 23:59 23:59 Intake Total 3065 / 3065 3382 / 3382 1932 / 1932 Output Total 2730 / 2730 2887 / 2887 1310 / 1310 Balance 335 / 335 495 / 495 622 / 622 General: Alert, Oriented x3, Cooperative, No apparent distress HEENT: Atraumatic, EOMI, Normocephalic, - - NGT Oral: Moist Mucosa Neck: Supple, No JVD Lungs: Clear to auscultation, Normal air movement, No rhonchi, No wheeze, No rales Cardiovascular: Regular rate, Regular Rhythm, Normal S1, Normal S2, No murmurs Abdomen: Soft, Non-Distended, No Hepato-splenomegaly, Tender - around incision Extremities: No edema, Capillary Refill Less than 3 Seconds Skin: No rashes, No breakdown, Incision - CDI Neurological: Neuro grossly intact, Sensory exam intact to light touch and pain Psych/Mental Status: Normal Affect, Appropriate Laboratory Results 09/12/18 18:12: POC Glucose 140 H 09/13/18 00:00: POC Glucose 141 H 09/13/18 06:18: POC Glucose 133 H Current Medications Dextrose (D50w Syringe) 0 gm IV X1 PRN; Protocol PRN Reason: Hypoglycemia Diphenhydramine HCl (Benadryl) 12.5 - 25 mg IV Q6H PRN PRN PRN Reason: ITCHING Diphenhydramine HCl (Benadryl) 12.5 - 25 mg PO Q6H PRN PRN PRN Reason: Pruritis Glucagon () 1 mg IM .X1 PRN PRN Reason: Hypoglycemia Heparin Sodium (Porcine) (Heparin Na) 5,000 unit SC Q8 [facility] Last Admin: 09/13/18 06:19 Dose: 5,000 unit Hydralazine HCl (Apresoline Iv) 5 mg IV Q4H PRN PRN PRN Reason: SBP > 160 Naloxone HCl 4 mg/ Dextrose 504 mls @ 0 mls/hr IV .Q0M PRN; Protocol PRN Reason: To maintain Resp. rate >10 Multivitamins 10 ml/ Chromium/Copper/Manganese/Seleni/Zn 1 ml/ Folic Acid 1 mg/Famotidine 40 mg/ Amino Acids/Electrolytes 2,015.2 mls @ 84 mls/hr IV .Q24H [facility] Stop: 09/13/18 15:59 Last Admin: 09/12/18 15:41 Dose: 84 mls/hr Lactated Ringer's () 1,000 mls @ 30 mls/hr IV .[id number] [facility] Last Admin: 09/13/18 00:04 Dose: 30 mls/hr Multivitamins 10 ml/ Chromium/Copper/Manganese/Seleni/Zn 1 ml/ Folic Acid 1 mg/Famotidine 40 mg/ Amino Acids/Electrolytes 2,015.2 mls @ 84 mls/hr IV .Q24H [facility] Stop: 09/14/18 15:59 Fat Emulsion Intravenous (Intralipid 20%) 250 mls @ 21 mls/hr IV .[id number] [facility] Stop: 09/14/18 03:54 Insulin Human Lispro (Humalog Kwikpen (Bkc)) 0 unit SQ Q6 [facility]; Protocol Last Admin: 09/13/18 06:18 Dose: Not Given Lorazepam (Ativan) 0.5 mg IV Q4H PRN PRN PRN Reason: RESTLESSNESS Last Admin: 09/13/18 01:49 Dose: 0.5 mg Magnesium Hydroxide (Milk Of Magnesia) 30 ml PO DAILY PRN PRN PRN Reason: Constipation Morphine Sulfate () 1 mg IV Q4H PRN PRN PRN Reason: PAIN Last Admin: 09/09/18 05:34 Dose: 1 mg Morphine Sulfate () 100 mg IV UD [facility]; Protocol Last Admin: 09/12/18 14:51 Dose: Not Given Naloxone HCl (Narcan) 0.02 mg IV Q1M PRN PRN Reason: RR <10 and pt unresponsive Ondansetron HCl (Zofran) 4 mg IV Q6H PRN PRN PRN Reason: NAUSEA/VOMITING Last Admin: 09/12/18 22:29 Dose: 4 mg Phenol/Menthol (Chloraseptic (Bkc)) 3 spray MM Q2H PRN PRN PRN Reason: SORE THROAT Prochlorperazine Edisylate (Compazine Iv) 5 mg IV Q4H PRN PRN PRN Reason: NAUSEA/VOMITING Last Admin: 09/05/18 15:21 Dose: 5 mg Sodium Chloride () 5 - 15 ml IV UD PRN PRN Reason: SALINE FLUSH Last Admin: 09/13/18 09:26 Dose: 15 ml Throat Lozenges (Cepacol Sore Throat Lozenge) 1 lozenge MUCOUS MEM Q1H PRN PRN PRN Reason: SORE THROAT Medical Necessity - Tobacco Use Smoking Status: Never smoker Assessment/Plan All Active Problems Partial small bowel obstruction (Acute) New onset atrial fibrillation (Resolved) Hypotension (Resolved) 1. 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 Stage 4 colon cancer - Resected in 2016 and being treated with Keytruda which he is tolerating well 3. CHRISTIAN-resolved 4. HTN - resolved, no medications necessary DVT: Heparin SC Code Visit Inpatient E&M: 79082 Subs Hosp L2
[2018-09-13 11:40] LABS: Bedside Glucose 106 mg/dL (70-110)
[2018-09-13] MEDS: Phenol/Sodium Phenolate 180ML 3 SPRAY MM (13:06)
[2018-09-13] MEDS: Fat Emulsions 20% 250 ML IV (16:40)
[2018-09-13 17:31] LABS: Bedside Glucose 122 mg/dL (70-110)
[2018-09-14] VITALS (12 sets, daily range): BP systolic 114–137; BP diastolic 57–88; PULSE 87–96; RESP 16–18; TEMP 36.3–36.9; O2SAT 95–100
[2018-09-14 00:30] LABS: Bedside Glucose 134 mg/dL (70-110)
[2018-09-14] MEDS: 0.9% NaCl Peripheral Flush Adult/Peds IV (02:55)
[2018-09-14] MEDS: LORazepam 2 MG/ML Syringe 0.5 MG IV ×2 (02:55→22:20)
[2018-09-14] MEDS: Heparin Injection (Vial) 5,000 UNIT/ML VIAL 5000 UNIT SC ×3 (06:26→22:20)
[2018-09-14 06:40] LABS: Anion Gap 8 (5-15); BUN 20 mg/dL (7-18); BUN/Creat Ratio 14.6 RATIO (10-20); Calcium,Total 8.2 mg/dL (8.5-10.1); Chloride 103 mmol/L (98-107); Creatinine, Serum 1.37 mg/dL (0.70-1.30); EST Glomerular Filtration Rate 56 mL/min (>60); Est Glom Filt Rate - Afr Amer 67 mL/min (>60); Estimated Creatinine Clearance 63.46 ml/min; Glucose 135 mg/dL (74-106); Magnesium 2.1 mg/dL (1.6-2.6); Phosphorus 3.4 mg/dL (2.5-4.9); Potassium 4.1 mmol/L (3.5-5.1); Sodium Level 139 mmol/L (136-145)
[2018-09-14 06:40] LABS: Bedside Glucose 120 mg/dL (70-110)
--- NOTE | 2018-09-14 08:11 | PCM.PN.HOSP ---
Patient Problems: Active and Suspected Problems Partial small bowel obstruction (Acute) Subjective: Doing well, no pain, but no Flatus or BM Vitals/I&O's: Vital Signs Temp Pulse Resp BP Pulse Ox 98.5 F 91 16 137/88 H 95 09/14/18 04:06 09/14/18 04:06 09/14/18 07:08 09/14/18 04:06 09/14/18 07:42 Oxygen Flow Rate (L/min) 2 Oxygen Delivery Method Room Air Weight: 179 lb 3.773 oz Body Mass Index (BMI) 21.8 Intake and Output for Last 24 Hours 09/12/18 09/13/18 09/14/18 23:59 23:59 23:59 Intake Total 3382 / 3382 3112 / 3112 1734 / 1734 Output Total 2887 / 2887 2067 / 2067 1357 / 1357 Balance 495 / 495 1045 / 1045 377 / 377 General: Alert, Oriented x3, Cooperative, No apparent distress HEENT: Atraumatic, EOMI, Normocephalic, - - NGT Oral: Moist Mucosa Neck: Supple, No JVD Lungs: Clear to auscultation, Normal air movement, No rhonchi, No wheeze, No rales Cardiovascular: Regular rate, Regular Rhythm, Normal S1, Normal S2, No murmurs Abdomen: Soft, Non-Distended, No Hepato-splenomegaly, Tender - around incision Extremities: No edema, Capillary Refill Less than 3 Seconds Skin: No rashes, No breakdown, Incision - CDI Neurological: Neuro grossly intact, Sensory exam intact to light touch and pain Psych/Mental Status: Normal Affect, Appropriate Laboratory Results 09/13/18 11:31: POC Glucose 106 09/13/18 17:26: POC Glucose 122 H 09/14/18 00:20: POC Glucose 134 H 09/14/18 05:15: Sodium 139, Potassium 4.1, Chloride 103, Carbon Dioxide 28.0, Anion Gap 8, BUN 20 H, Creatinine 1.37 H, Estim Creat Clear Calc 63.46, Est GFR (MDRD) Af Amer 67, Est GFR (MDRD) Non-Af 56 L, BUN/Creatinine Ratio 14.6, Glucose 135 H, Calcium 8.2 L, Phosphorus 3.4, Magnesium 2.1 09/14/18 06:25: POC Glucose 120 H Current Medications Dextrose (D50w Syringe) 0 gm IV X1 PRN; Protocol PRN Reason: Hypoglycemia Diphenhydramine HCl (Benadryl) 12.5 - 25 mg IV Q6H PRN PRN PRN Reason: ITCHING Diphenhydramine HCl (Benadryl) 12.5 - 25 mg PO Q6H PRN PRN PRN Reason: Pruritis Glucagon () 1 mg IM .X1 PRN PRN Reason: Hypoglycemia Heparin Sodium (Porcine) (Heparin Na) 5,000 unit SC Q8 [facility] Last Admin: 09/14/18 06:26 Dose: 5,000 unit Hydralazine HCl (Apresoline Iv) 5 mg IV Q4H PRN PRN PRN Reason: SBP > 160 Naloxone HCl 4 mg/ Dextrose 504 mls @ 0 mls/hr IV .Q0M PRN; Protocol PRN Reason: To maintain Resp. rate >10 Lactated Ringer's () 1,000 mls @ 30 mls/hr IV .[id number] [facility] Last Admin: 09/13/18 00:04 Dose: 30 mls/hr Multivitamins 10 ml/ Chromium/Copper/Manganese/Seleni/Zn 1 ml/ Folic Acid 1 mg/Famotidine 40 mg/ Amino Acids/Electrolytes 2,015.2 mls @ 84 mls/hr IV .Q24H [facility] Stop: 09/14/18 15:59 Last Admin: 09/13/18 16:40 Dose: 84 mls/hr Insulin Human Lispro (Humalog Kwikpen (Bkc)) 0 unit SQ Q6 [facility]; Protocol Last Admin: 09/14/18 06:26 Dose: Not Given Lorazepam (Ativan) 0.5 mg IV Q4H PRN PRN PRN Reason: RESTLESSNESS Last Admin: 09/14/18 02:55 Dose: 0.5 mg Magnesium Hydroxide (Milk Of Magnesia) 30 ml PO DAILY PRN PRN PRN Reason: Constipation Morphine Sulfate () 1 mg IV Q4H PRN PRN PRN Reason: PAIN Last Admin: 09/09/18 05:34 Dose: 1 mg Morphine Sulfate () 100 mg IV UD [facility]; Protocol Last Admin: 09/13/18 16:49 Dose: Not Given Naloxone HCl (Narcan) 0.02 mg IV Q1M PRN PRN Reason: RR <10 and pt unresponsive Ondansetron HCl (Zofran) 4 mg IV Q6H PRN PRN PRN Reason: NAUSEA/VOMITING Last Admin: 09/12/18 22:29 Dose: 4 mg Phenol/Menthol (Chloraseptic (Bkc)) 3 spray MM Q2H PRN PRN PRN Reason: SORE THROAT Last Admin: 09/13/18 13:06 Dose: 3 spray Prochlorperazine Edisylate (Compazine Iv) 5 mg IV Q4H PRN PRN PRN Reason: NAUSEA/VOMITING Last Admin: 09/05/18 15:21 Dose: 5 mg Sodium Chloride () 5 - 15 ml IV UD PRN PRN Reason: SALINE FLUSH Last Admin: 09/14/18 02:55 Dose: 10 ml Throat Lozenges (Cepacol Sore Throat Lozenge) 1 lozenge MUCOUS MEM Q1H PRN PRN PRN Reason: SORE THROAT Medical Necessity - Tobacco Use Smoking Status: Never smoker Assessment/Plan All Active Problems Partial small bowel obstruction (Acute) New onset atrial fibrillation (Resolved) Hypotension (Resolved) 1. 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 Stage 4 colon cancer - Resected in 2016 and being treated with Keytruda which he is tolerating well 3. CHRISTIAN-resolved 4. HTN - resolved, no medications necessary DVT: Heparin SC Code Visit Inpatient E&M: 72003 Subs Hosp L2
[2018-09-14] MEDS: Lactated Ringers 1,000 ML 75 ML IV ×2 (08:48→20:57)
--- NOTE | 2018-09-14 09:20 | PN.SURG_ITS ---
Patient Problems: Active and Suspected Problems Partial small bowel obstruction (Acute) Subjective: no flatus, minimal abdominal pain - Physical Exam General: Alert, Oriented x3, Cooperative Lungs: Clear to auscultation, Normal air movement Cardiovascular: Regular rate, No murmurs Abdomen: Soft, Non Tender, Hypoactive Bowel Sounds, - - DEBI minimal- serous Vital Signs Temp Pulse Resp BP Pulse Ox 97.6 F L 96 16 121/57 H 98 09/14/18 08:40 09/14/18 08:40 09/14/18 08:40 09/14/18 08:40 09/14/18 08:40 Oxygen Flow Rate (L/min) 2 Oxygen Delivery Method Room Air Weight: 81.3 kg Body Mass Index (BMI) 21.8 Intake and Output for Last 24 Hours 09/12/18 09/13/18 09/14/18 23:59 23:59 23:59 Intake Total 3382 / 3382 3112 / 3112 1764 / 1764 Output Total 2887 / 2887 2067 / 2067 2257 / 2257 Balance 495 / 495 1045 / 1045 -493 / -493 Laboratory Tests Past 24 Hrs 09/14/18 05:15 Sodium 139 Potassium 4.1 Chloride 103 Carbon Dioxide 28.0 Anion Gap 8 BUN 20 H Creatinine 1.37 H Estim Creat Clear Calc 63.46 Est GFR (MDRD) Af Amer 67 Est GFR (MDRD) Non-Af 56 L BUN/Creatinine Ratio 14.6 Glucose 135 H Calcium 8.2 L Phosphorus 3.4 Magnesium 2.1 POC Glucose 09/14/18 09/14/18 09/13/18 06:25 00:20 17:26 POC Glucose 120 H 134 H 122 H 09/13/18 11:31 POC Glucose 106 Medical Necessity - Tobacco Use Smoking Status: Never smoker Assessment/Plan All Active Problems Partial small bowel obstruction (Acute) New onset atrial fibrillation (Resolved) Hypotension (Resolved) 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 Now with small bowel obstruction. noted improved with conservative management. Postoperatively #6 status post laparoscopic converted to exploratory laparotomy with very extensive lysis of adhesions-greater than 2 hours, repair of small bowel enterotomy and segmental small bowel resection due to stricture with compromised bowel noted at area of tightest band. final pathology demonstrates no recurrent malignancy. Patient notes incisional pain. 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 Nasogastric tube bridled in place and functioning well. We will encourage incentive spirometry, ambulation, patient chew gum and may use Cepacol throat lozenges if needed. Mosher catheter removed. resolved urinary incontinence- seemingly urine output adequate. we will clamp NG tube today and check KUB after 6 hours along with volume of NG output after unclamping. If patient doing well will likely DC NG tube tomorrow. given his overall clinical status of protein wasting and failure for quick resolution - on TPN.
--- NOTE | 2018-09-14 10:05 | RAD_ITS ---
STUDY: X-RAY - ABDOMEN/PELVIS REASON FOR EXAM: Male, 62 years old. Small bowel obstruction TECHNIQUE: Two AP supine views of the abdomen and pelvis. COMPARISON: 09/13/2018 FINDINGS: Lung bases are clear. Stable enteric tube in the stomach. Slightly increased gaseous distended loops of small bowel in the left upper quadrant region. Fecal retention in the colon. No evidence of free air. Surgical skin stables are noted. There appears to be a pelvic drain in the right lower quadrant region. RAD/Abdomen Single View IMPRESSION: Increased gaseous distended loops of small bowel in the left upper quadrant Electronically Signed: Gualberto Boucher DO at 11:01 EST Tel , Service support ,
[2018-09-14 11:41] LABS: Bedside Glucose 132 mg/dL (70-110)
--- NOTE | 2018-09-14 17:10 | RAD_ITS ---
STUDY: X-RAY - ABDOMEN/PELVIS REASON FOR EXAM: Male, 62 years old. Abdominal pain. TECHNIQUE: 3 supine views of the abdomen COMPARISON: 09/14/2018 at 10:15 AM FINDINGS: There are air-filled dilated loops of small bowel in the abdomen which are stable when compared with the prior exam. There is an enteric tube noted with its tip in the stomach. RAD/Abdomen Single View IMPRESSION: Enteric tube tip in the stomach. Stable dilated loops of small bowel which likely represent obstruction. Electronically Signed: Colten Benitez, at 17:52 EST Tel , Service support ,
[2018-09-14 18:16] LABS: Bedside Glucose 118 mg/dL (70-110)
[2018-09-15 00:31] LABS: Bedside Glucose 139 mg/dL (70-110)
[2018-09-15 02:30] VITALS: BP 130/58; PULSE 85; RESP 16; TEMP 36.4; O2SAT 97
[2018-09-15] MEDS: LORazepam 2 MG/ML Syringe 0.5 MG IV ×2 (02:38→21:43)
[2018-09-15 05:41] LABS: Anion Gap 7 (5-15); BUN 24 mg/dL (7-18); Calcium,Total 8.2 mg/dL (8.5-10.1); Chloride 105 mmol/L (98-107); Creatinine, Serum 1.26 mg/dL (0.70-1.30); EST Glomerular Filtration Rate 61 mL/min (>60); Est Glom Filt Rate - Afr Amer 74 mL/min (>60); Glucose 140 mg/dL (74-106); Potassium 4.5 mmol/L (3.5-5.1); Sodium Level 140 mmol/L (136-145)
[2018-09-15] MEDS: Heparin Injection (Vial) 5,000 UNIT/ML VIAL 5000 UNIT SC ×3 (06:08→21:52)
--- NOTE | 2018-09-15 06:15 | PN.SURG_ITS ---
Patient Problems: Active and Suspected Problems Partial small bowel obstruction (Acute) Subjective: some flatus yesterday and overnight - Physical Exam General: Alert, Oriented x3, Cooperative Lungs: Clear to auscultation, Normal air movement Cardiovascular: Regular rate, No murmurs Abdomen: Bowel Sounds Present, Non Tender, Hypoactive Bowel Sounds Vital Signs Temp Pulse Resp BP Pulse Ox 97.6 F L 85 16 130/58 H 97 09/15/18 02:30 09/15/18 02:30 09/15/18 02:30 09/15/18 02:30 09/15/18 02:30 Oxygen Flow Rate (L/min) 2 Oxygen Delivery Method Room Air Weight: 81.3 kg Body Mass Index (BMI) 21.8 Intake and Output for Last 24 Hours 09/13/18 09/14/18 09/15/18 23:59 23:59 23:59 Intake Total 3112 / 3112 3455 / 3455 1011 / 1011 Output Total 2067 / 2067 3212 / 3212 950 / 950 Balance 1045 / 1045 243 / 243 61 / 61 Laboratory Tests Past 24 Hrs 09/14/18 09/15/18 05:15 05:22 Sodium 139 140 Potassium 4.1 4.5 Chloride 103 105 Carbon Dioxide 28.0 28.0 Anion Gap 8 7 BUN 20 H 24 H Creatinine 1.37 H 1.26 Estim Creat Clear Calc 63.46 69.00 Est GFR (MDRD) Af Amer 67 74 Est GFR (MDRD) Non-Af 56 L 61 BUN/Creatinine Ratio 14.6 19.0 Glucose 135 H 140 H Calcium 8.2 L 8.2 L Phosphorus 3.4 Magnesium 2.1 POC Glucose 09/15/18 09/14/18 09/14/18 00:24 18:02 11:38 POC Glucose 139 H 118 H 132 H 09/14/18 06:25 POC Glucose 120 H Medical Necessity - Tobacco Use Smoking Status: Never smoker Assessment/Plan All Active Problems Partial small bowel obstruction (Acute) New onset atrial fibrillation (Resolved) Hypotension (Resolved) 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 Now with small bowel obstruction. noted improved with conservative management. Postoperatively #7 status post laparoscopic converted to exploratory laparotomy with very extensive lysis of adhesions-greater than 2 hours, repair of small bowel enterotomy and segmental small bowel resection due to stricture with compromised bowel noted at area of tightest band. final pathology demonstrates no recurrent malignancy. Patient notes incisional pain. 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 Nasogastric tube bridled in place and functioning well. We will encourage incentive spirometry, ambulation, patient chew gum and may use Cepacol throat lozenges if needed. Mosher catheter removed. resolved urinary incontinence- seemingly urine output adequate. Clamped NG tube yesterday. hfter 6 hours along with volume of NG output after unclamping. Will keep NG for now but hopeful ileus is resolving given his overall clinical status of protein wasting and failure for quick resolution - on TPN.
[2018-09-15 06:26] LABS: Bedside Glucose 126 mg/dL (70-110)
[2018-09-15 06:49] LABS: Absolute Lymphocyte Count 1.34 X10^3/ul (0.83-4.51); Basophil# 0.07 X10^3/uL; Basophil% 0.7 % (0-1); Eosinophil# 0.23 X10^3/uL; Eosinophils% 2.2 % (0-5); Hematocrit 39.6 % (40-54); Lymphocyte # 1.34 X10^3/ul (4.0); Lymphocyte % 12.6 % (19-41); Mean Corp Hgb Conc 32.8 g/gl (32-36); Mean Corpuscular Hgb 32.2 pg (27.0-32.0); Mean Platelet Vol. 9.7 fl (6.2-12.0); Monocyte# 0.89 X10^3/uL; Monocyte% 8.4 % (0-10); Neutrophil # 7.98 X10^3/uL (2.7-7.7); Neutrophil % 75.2 % (47-70); Platelet Count 341 K/mm3 (150-450); RBC Distribution Width CV 12.2 % (11.6-14.6); RBC Distribution Width SD 43.9 fl (35.1-43.9); Red Blood Count 4.04 M/mm3 (4.6-6.2); White Blood Count 10.6 K/mm3 (4.4-11.0)
[2018-09-15 06:55] LABS: ALB/GLOB Ratio 0.6 RATIO (0.9-2.4); AST(SGOT) 25 U/L (15-37); Alanine Aminotransfer ALT/SGPT 46 U/L (16-61); Alkaline Phosphatase 202 U/L (45-117); Globulin 3.6 g/dL (2.2-4.2); POSITIVE COUNT NO; POSITIVE DIFFERENTIAL NO; POSITIVE MORPHOLOGY NO; Phosphorus 3.3 mg/dL (2.5-4.9); Protein, Total 5.6 g/dL (6.4-8.2)
--- NOTE | 2018-09-15 07:03 | PN_ITS ---
Patient Problems: Active and Suspected Problems Partial small bowel obstruction (Acute) Subjective: Had some flatus yesterday, and had a BM today. no nausea or vomiting. No pain Vitals/I&O's: Vital Signs Temp Pulse Resp BP Pulse Ox 97.6 F L 85 16 130/58 H 97 09/15/18 02:30 09/15/18 02:30 09/15/18 02:30 09/15/18 02:30 09/15/18 02:30 Oxygen Flow Rate (L/min) 2 Oxygen Delivery Method Room Air Weight: 179 lb 3.773 oz Body Mass Index (BMI) 21.8 Intake and Output for Last 24 Hours 09/13/18 09/14/18 09/15/18 23:59 23:59 23:59 Intake Total 3112 / 3112 3455 / 3455 1945 / 194 Output Total 2066 / 2066 3212 / 3212 1450 / 1450 Balance 1045 / 1045 243 / 243 495 / 495 General: Alert, Oriented x3, Cooperative, No apparent distress HEENT: Atraumatic, EOMI, Normocephalic, - - NGT Oral: Moist Mucosa Neck: Supple, No JVD Lungs: Clear to auscultation, Normal air movement, No rhonchi, No wheeze, No rales Cardiovascular: Regular rate, Regular Rhythm, Normal S1, Normal S2, No murmurs Abdomen: Soft, Non-Distended, No Hepato-splenomegaly, Tender - around incision Extremities: No edema, Capillary Refill Less than 3 Seconds Skin: No rashes, No breakdown, Incision - CDI Neurological: Neuro grossly intact, Sensory exam intact to light touch and pain Psych/Mental Status: Normal Affect, Appropriate Laboratory Results 09/14/18 11:38: POC Glucose 132 H 09/14/18 18:02: POC Glucose 118 H 09/15/18 00:24: POC Glucose 139 H 09/15/18 05:22: Sodium 140, Potassium 4.5, Chloride 105, Carbon Dioxide 28.0, Anion Gap 7, BUN 24 H, Creatinine 1.26, Estim Creat Clear Calc 69.00, Est GFR (MDRD) Af Amer 74, Est GFR (MDRD) Non-Af 61, BUN/Creatinine Ratio 19.0, Glucose 140 H, Calcium 8.2 L, Phosphorus 3.3, Magnesium 2.0, Total Bilirubin 0.50, AST 25, ALT 46, Alkaline Phosphatase 202 H, Total Protein 5.6 L, Albumin 2.0 L, Globulin 3.6, Albumin/Globulin Ratio 0.6 L 09/15/18 05:22: WBC 10.6, RBC 4.04 L, Hgb 13.0, Hct 39.6 L, MCV 98.0 H, MCH 32.2 H, MCHC 32.8, RDW 12.2, RDW Differential 43.9, Plt Count 341, MPV 9.7, Immature Gran % (Auto) 0.900, Neut % (Auto) 75.2 H, Lymph % (Auto) 12.6 L, [place] % (Auto) 8.4, Eos % (Auto) 2.2, Baso % (Auto) 0.7, Absolute Neuts (auto) 8.0 H, Absolute Lymphs (auto) 1.34, Total Counted Not Reportable 09/15/18 05:22: Sodium Cancelled, Potassium Cancelled, Chloride Cancelled, Carbon Dioxide Cancelled, Anion Gap Cancelled, BUN Cancelled, Creatinine Cancelled, Estim Creat Clear Calc Cancelled, Est GFR (MDRD) Af Amer Cancelled, Est GFR (MDRD) Non-Af Cancelled, BUN/Creatinine Ratio Cancelled, Glucose Cancelled, Calcium Cancelled, Phosphorus Cancelled, Magnesium Cancelled, Total Bilirubin Cancelled, AST Cancelled, ALT Cancelled, Alkaline Phosphatase Cancelled, Total Protein Cancelled, Albumin Cancelled, Globulin Cancelled, Albumin/Globulin Ratio Cancelled 09/15/18 06:07: POC Glucose 126 H Current Medications Dextrose (D50w Syringe) 0 gm IV X1 PRN; Protocol PRN Reason: Hypoglycemia Glucagon () 1 mg IM .X1 PRN PRN Reason: Hypoglycemia Heparin Sodium (Porcine) (Heparin Na) 5,000 unit SC Q8 [facility] Last Admin: 09/15/18 06:08 Dose: 5,000 unit Hydralazine HCl (Apresoline Iv) 5 mg IV Q4H PRN PRN PRN Reason: SBP > 160 Naloxone HCl 4 mg/ Dextrose 504 mls @ 0 mls/hr IV .Q0M PRN; Protocol PRN Reason: To maintain Resp. rate >10 Lactated Ringer's () 1,000 mls @ 75 mls/hr IV .[id number] [facility] Last Admin: 09/14/18 20:57 Dose: 75 mls/hr Multivitamins 10 ml/ Chromium/Copper/Manganese/Seleni/Zn 1 ml/ Folic Acid 1 mg/Famotidine 40 mg/ Amino Acids/Electrolytes 2,015.2 mls @ 84 mls/hr IV .Q24H [facility] Stop: 09/15/18 15:59 Last Admin: 09/14/18 16:17 Dose: 84 mls/hr Insulin Human Lispro (Humalog Kwikpen (Bkc)) 0 unit SQ Q6 [facility]; Protocol Last Admin: 09/15/18 06:53 Dose: Not Given Lorazepam (Ativan) 0.5 mg IV Q4H PRN PRN PRN Reason: RESTLESSNESS Last Admin: 09/15/18 02:38 Dose: 0.5 mg Magnesium Hydroxide (Milk Of Magnesia) 30 ml PO DAILY PRN PRN PRN Reason: Constipation Morphine Sulfate () 1 - 3 mg IV Q1H PRN PRN PRN Reason: SEVERE PAIN (6-10/10) Morphine Sulfate () 1 - 3 mg IV Q1H PRN PRN PRN Reason: SEVERE PAIN (6-10/10) Ondansetron HCl (Zofran) 4 mg IV Q6H PRN PRN PRN Reason: NAUSEA/VOMITING Last Admin: 09/12/18 22:29 Dose: 4 mg Phenol/Menthol (Chloraseptic (Bkc)) 3 spray MM Q2H PRN PRN PRN Reason: SORE THROAT Last Admin: 09/13/18 13:06 Dose: 3 spray Prochlorperazine Edisylate (Compazine Iv) 5 mg IV Q4H PRN PRN PRN Reason: NAUSEA/VOMITING Last Admin: 09/05/18 15:21 Dose: 5 mg Sodium Chloride () 5 - 15 ml IV UD PRN PRN Reason: SALINE FLUSH Last Admin: 09/14/18 02:55 Dose: 10 ml Throat Lozenges (Cepacol Sore Throat Lozenge) 1 lozenge MUCOUS MEM Q1H PRN PRN PRN Reason: SORE THROAT Medical Necessity - Tobacco Use Smoking Status: Never smoker Assessment/Plan All Active Problems Partial small bowel obstruction (Acute) New onset atrial fibrillation (Resolved) Hypotension (Resolved) 1. 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 Stage 4 colon cancer - Resected in 2016 and being treated with Keytruda which he is tolerating well 3. CHRISTIAN-resolved 4. HTN - resolved, no medications necessary DVT: Heparin SC
[2018-09-15 10:17] VITALS: BP 103/56; PULSE 93; RESP 18; TEMP 36.9; O2SAT 100
[2018-09-15] MEDS: Lactated Ringers 1,000 ML 75 ML IV (11:09)
[2018-09-15 13:01] LABS: Bedside Glucose 136 mg/dL (70-110)
[2018-09-15 15:21] VITALS: BP 97/53; PULSE 88; RESP 18; TEMP 37.2; O2SAT 100
[2018-09-15] MEDS: Fat Emulsions 20% 250 ML IV (16:19)
[2018-09-15 21:20] VITALS: BP 107/54; PULSE 85; RESP 16; TEMP 36.9; O2SAT 95
[2018-09-15] MEDS: 0.9% NaCl Peripheral Flush Adult/Peds IV (21:44)
[2018-09-16] MEDS: LORazepam 2 MG/ML Syringe 0.5 MG IV (02:11)
[2018-09-16] MEDS: 0.9% NaCl Peripheral Flush Adult/Peds IV (02:12)
[2018-09-16 02:30] VITALS: BP 120/63; PULSE 86; RESP 16; TEMP 36.6; O2SAT 96
[2018-09-16] MEDS: Heparin Injection (Vial) 5,000 UNIT/ML VIAL 5000 UNIT SC ×3 (05:33→21:12)
--- NOTE | 2018-09-16 06:15 | RAD_ITS ---
STUDY: X-RAY - ABDOMEN/PELVIS REASON FOR EXAM: Male, 62 years old. Small bowel obstruction TECHNIQUE: AP supine and upright views of the abdomen and pelvis. COMPARISON: None. FINDINGS: Normal visualized lung bases. Enteric tube tip in the body of the stomach. Drain in the pelvis. Midline skin yelena. Improving obstructive bowel gas pattern. Quantity of small bowel gas has decreased. Loops now measure up to 4.2 cm. Multiple acute air-fluid levels on the upright view. There is no demonstrated free abdominal air. The visualized liver, spleen and kidneys are grossly normal in size and morphology. Normal soft tissue structures. There are diffuse degenerative changes of the visualized lumbar spine. RAD/Abd Inc Decub and/or Erect IMPRESSION: Improving obstructive bowel gas pattern. Quantity of small bowel gas has decreased. Electronically Signed: Eliu Nice MD at 6:58 EST Tel , Service support ,
[2018-09-16 06:42] LABS: Anion Gap 8 (5-15); BUN 24 mg/dL (7-18); BUN/Creat Ratio 18.3 RATIO (10-20); Calcium,Total 8.5 mg/dL (8.5-10.1); Chloride 103 mmol/L (98-107); Creatinine, Serum 1.31 mg/dL (0.70-1.30); EST Glomerular Filtration Rate 59 mL/min (>60); Est Glom Filt Rate - Afr Amer 71 mL/min (>60); Estimated Creatinine Clearance 66.37 ml/min; Glucose 133 mg/dL (74-106); Potassium 4.7 mmol/L (3.5-5.1); Sodium Level 139 mmol/L (136-145)
[2018-09-16 07:20] VITALS: O2SAT 95
[2018-09-16 07:47] VITALS: BP 101/51; PULSE 84; RESP 18; TEMP 37.3; O2SAT 94
--- NOTE | 2018-09-16 08:17 | PN.SURG_ITS ---
Patient Problems: Active and Suspected Problems Partial small bowel obstruction (Acute) Subjective: some flatus yesterday, no nausea or vomiting - Physical Exam General: Alert, Oriented x3, Cooperative Lungs: Clear to auscultation, Normal air movement Cardiovascular: Regular rate, No murmurs Abdomen: Soft, Non Tender, Hypoactive Bowel Sounds, - - NG tube and Eric- Feng drain removed Vital Signs Temp Pulse Resp BP Pulse Ox 99.1 F 84 18 101/51 L 94 09/16/18 07:47 09/16/18 07:47 09/16/18 07:47 09/16/18 07:47 09/16/18 07:47 Oxygen Flow Rate (L/min) 2 Oxygen Delivery Method Room Air Weight: 81.3 kg Body Mass Index (BMI) 21.8 Intake and Output for Last 24 Hours 09/14/18 09/15/18 09/16/18 23:59 23:59 23:59 Intake Total 3455 / 3455 4349.8 / 4349.8 Output Total 3212 / 3212 2175 / 2175 Balance 243 / 243 2174.8 / 2174.8 Laboratory Tests Past 24 Hrs 09/16/18 06:02 Sodium 139 Potassium 4.7 Chloride 103 Carbon Dioxide 28.0 Anion Gap 8 BUN 24 H Creatinine 1.31 H Estim Creat Clear Calc 66.37 Est GFR (MDRD) Af Amer 71 Est GFR (MDRD) Non-Af 59 L BUN/Creatinine Ratio 18.3 Glucose 133 H Calcium 8.5 POC Glucose 09/15/18 12:53 POC Glucose 136 H Medical Necessity - Tobacco Use Smoking Status: Never smoker Assessment/Plan All Active Problems Partial small bowel obstruction (Acute) New onset atrial fibrillation (Resolved) Hypotension (Resolved) 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 Now with small bowel obstruction. noted improved with conservative management. Postoperatively #8 status post laparoscopic converted to exploratory laparotomy with very extensive lysis of adhesions-greater than 2 hours, repair of small bowel enterotomy and segmental small bowel resection due to stricture with compromised bowel noted at area of tightest band. final pathology demonstrates no recurrent malignancy. abdominal multiview this morning still showed some distended small bowel but improvement compared to 2 days previously and patient has continued to have some flatus and a small bowel movement. NG tube and Eric-Feng drain removed. We will trial sips of clear liquids. if patient fails NG tube removal and liquids, would then consider this early postoperative small bowel obstruction and plan for PEG tube placement for alternating decompression and feeding. Patient clinically deconditioned and considerable malnutrition. Even if tolerating liquids anticipate he will need SNF or LTAC placement for continued TPN and reconditioning. given his overall clinical status of protein wasting and failure for quick resolution - on TPN.
--- NOTE | 2018-09-16 11:23 | PN_ITS ---
Patient Problems: Active and Suspected Problems Partial small bowel obstruction (Acute) Subjective: Happy to have the NGT out, No pain or nausea. Positive flatus no BM today but he did have some yesterday Vitals/I&O's: Vital Signs Temp Pulse Resp BP Pulse Ox 99.1 F 84 18 101/51 L 94 09/16/18 07:47 09/16/18 07:47 09/16/18 07:47 09/16/18 07:47 09/16/18 07:47 Oxygen Flow Rate (L/min) 2 Oxygen Delivery Method Room Air Weight: 160 lb 14.999 oz Body Mass Index (BMI) 21.8 Intake and Output for Last 24 Hours 09/14/18 09/15/18 09/16/18 23:59 23:59 23:59 Intake Total 3455 / 3455 4349.8 / 4349.8 Output Total 3212 / 3212 2175 / 2175 Balance 243 / 243 2174.8 / 2174.8 General: Alert, Oriented x3, Cooperative, No apparent distress HEENT: Atraumatic, EOMI, Normocephalic, Oral: Moist Mucosa Neck: Supple, No JVD Lungs: Clear to auscultation, Normal air movement, No rhonchi, No wheeze, No rales Cardiovascular: Regular rate, Regular Rhythm, Normal S1, Normal S2, No murmurs Abdomen: Soft, Non-Distended, No Hepato-splenomegaly, Tender - around incision Extremities: No edema, Capillary Refill Less than 3 Seconds Skin: No rashes, No breakdown, Incision - CDI Neurological: Neuro grossly intact, Sensory exam intact to light touch and pain Psych/Mental Status: Normal Affect, Appropriate Laboratory Results 09/15/18 12:53: POC Glucose 136 H 09/16/18 06:02: Sodium 139, Potassium 4.7, Chloride 103, Carbon Dioxide 28.0, Anion Gap 8, BUN 24 H, Creatinine 1.31 H, Estim Creat Clear Calc 66.37, Est GFR (MDRD) Af Amer 71, Est GFR (MDRD) Non-Af 59 L, BUN/Creatinine Ratio 18.3, Glucose 133 H, Calcium 8.5 Current Medications Dextrose (D50w Syringe) 0 gm IV X1 PRN; Protocol PRN Reason: Hypoglycemia Glucagon () 1 mg IM .X1 PRN PRN Reason: Hypoglycemia Heparin Sodium (Porcine) (Heparin Na) 5,000 unit SC Q8 OLINDA Last Admin: 09/16/18 05:33 Dose: 5,000 unit Hydralazine HCl (Apresoline Iv) 5 mg IV Q4H PRN PRN PRN Reason: SBP > 160 Naloxone HCl 4 mg/ Dextrose 504 mls @ 0 mls/hr IV .Q0M PRN; Protocol PRN Reason: To maintain Resp. rate >10 Multivitamins 10 ml/ Chromium/Copper/Manganese/Seleni/Zn 1 ml/ Folic Acid 1 mg/Famotidine 40 mg/ Amino Acids/Electrolytes 2,015.2 mls @ 84 mls/hr IV .Q24H [facility] Stop: 09/16/18 15:59 Last Admin: 09/15/18 16:19 Dose: 84 mls/hr Multivitamins 10 ml/ Chromium/Copper/Manganese/Seleni/Zn 1 ml/ Folic Acid 1 mg/Famotidine 40 mg/ Amino Acids/Electrolytes 2,015.2 mls @ 84 mls/hr IV .Q24H [facility] Stop: 09/17/18 15:59 Lorazepam (Ativan) 0.5 mg IV Q4H PRN PRN PRN Reason: RESTLESSNESS Last Admin: 09/16/18 02:11 Dose: 0.5 mg Magnesium Hydroxide (Milk Of Magnesia) 30 ml PO DAILY PRN PRN PRN Reason: Constipation Morphine Sulfate () 1 - 3 mg IV Q1H PRN PRN PRN Reason: SEVERE PAIN (6-10/10) Morphine Sulfate () 1 - 3 mg IV Q1H PRN PRN PRN Reason: SEVERE PAIN (6-10/10) Multi-Ingredient Ointment (Aquaphor) 1 applic TOPICAL PRN PRN; Protocol PRN Reason: ULCERATED NARES Ondansetron HCl (Zofran) 4 mg IV Q6H PRN PRN PRN Reason: NAUSEA/VOMITING Last Admin: 09/12/18 22:29 Dose: 4 mg Phenol/Menthol (Chloraseptic (Bkc)) 3 spray MM Q2H PRN PRN PRN Reason: SORE THROAT Last Admin: 09/13/18 13:06 Dose: 3 spray Prochlorperazine Edisylate (Compazine Iv) 5 mg IV Q4H PRN PRN PRN Reason: NAUSEA/VOMITING Last Admin: 09/05/18 15:21 Dose: 5 mg Sodium Chloride () 5 - 15 ml IV UD PRN PRN Reason: SALINE FLUSH Last Admin: 09/16/18 02:12 Dose: 10 ml Throat Lozenges (Cepacol Sore Throat Lozenge) 1 lozenge MUCOUS MEM Q1H PRN PRN PRN Reason: SORE THROAT Medical Necessity - Tobacco Use Smoking Status: Never smoker Assessment/Plan All Active Problems Partial small bowel obstruction (Acute) New onset atrial fibrillation (Resolved) Hypotension (Resolved) 1. SBO s/p ex-lap POD 8/Severe protein malnutrition - Morphine PRN - C/w with ambulation and gum chewing -NGT removed, sips or clears for today - C/w TPN and monitor accordingly 2. Stage 4 colon cancer - Resected in 2016 and being treated with Keytruda which he is tolerating well DVT: Heparin SC Code Visit Inpatient E&M: 50412 Subs Hosp L2
[2018-09-16 14:30] VITALS: BP 113/67; PULSE 75; RESP 18; TEMP 37.3; O2SAT 96
[2018-09-16] MEDS: Ondansetron 4 MG/2 ML Vial IV (19:29)
[2018-09-16] MEDS: Morphine 2 MG/ML Syringe IV (20:55)
[2018-09-16 20:59] VITALS: BP 126/64; PULSE 85; RESP 18; TEMP 36.4; O2SAT 97
[2018-09-17] VITALS (10 sets, daily range): BP systolic 93–129; BP diastolic 60–72; PULSE 79–95; RESP 15–18; TEMP 36.6–36.8; O2SAT 94–100
[2018-09-17] MEDS: proCHLORPERazine 10 MG/2 ML Vial 5 MG IV ×2 (04:16→11:54)
--- NOTE | 2018-09-17 05:00 | RAD_ITS ---
STUDY: X-RAY - ABDOMEN/PELVIS REASON FOR EXAM: Male, 62 years old. Small bowel obstruction TECHNIQUE: AP supine and upright views of the abdomen and pelvis. COMPARISON: 09/16/2018 FINDINGS: Normal visualized lung bases. Enteric tube has been removed. Midline skin yelena. Right upper and lower quadrant clips. Progressing obstructive bowel gas pattern. Multiple dilated small bowel loops are present throughout the abdomen that now measure up to 7.5 cm in diameter. There is no demonstrated free abdominal air. The visualized liver, spleen and kidneys are grossly normal in size and morphology. Normal soft tissue structures. Normal visualized osseous structures. RAD/Abd Inc Decub and/or Erect IMPRESSION: Progressing obstructive bowel gas pattern. Electronically Signed: Eliu Nice MD at 5:31 EST Tel , Service support ,
[2018-09-17] MEDS: Heparin Injection (Vial) 5,000 UNIT/ML VIAL 5000 UNIT SC ×3 (05:48→22:30)
[2018-09-17 06:04] LABS: Absolute Lymphocyte Count 0.82 X10^3/ul (0.83-4.51); Absolute Neutrophil Count 11.5 X10^3/uL (2.0-7.7); Basophil# 0.04 X10^3/uL; Basophil% 0.3 % (0-1); Eosinophil# 0.06 X10^3/uL; Eosinophils% 0.5 % (0-5); Hematocrit 43.3 % (40-54); Hemoglobin 14.4 g/dl (13.0-16.5); Lymphocyte # 0.82 X10^3/ul (4.0); Lymphocyte % 6.2 % (19-41); Mean Corp Hgb Conc 33.3 g/gl (32-36); Mean Corpuscular Hgb 32.5 pg (27.0-32.0); Mean Corpuscular Volume 97.7 fL (80-94); Mean Platelet Vol. 9.3 fl (6.2-12.0); Monocyte% 5.3 % (0-10); Neutrophil # 11.45 X10^3/uL (2.7-7.7); Neutrophil % 86.9 % (47-70); Platelet Count 517 K/mm3 (150-450); RBC Distribution Width CV 12.2 % (11.6-14.6); RBC Distribution Width SD 43.7 fl (35.1-43.9); Red Blood Count 4.43 M/mm3 (4.6-6.2); White Blood Count 13.2 K/mm3 (4.4-11.0)
[2018-09-17] MEDS: LORazepam 2 MG/ML Syringe 0.5 MG IV ×3 (06:05→22:31)
--- NOTE | 2018-09-17 06:08 | PCM.PN.SRG ---
Patient Problems: Active and Suspected Problems Partial small bowel obstruction (Acute) Subjective: vomited overnight - Physical Exam General: Alert, Oriented x3, Cooperative Lungs: Clear to auscultation, Normal air movement Cardiovascular: Regular rate, No murmurs Abdomen: Soft, Non Tender, Hypoactive Bowel Sounds Vital Signs Temp Pulse Resp BP Pulse Ox 97.8 F 95 18 129/66 H 96 09/17/18 03:00 09/17/18 03:00 09/17/18 03:00 09/17/18 03:00 09/17/18 03:00 Oxygen Flow Rate (L/min) 2 Oxygen Delivery Method Room Air Weight: 73 kg Body Mass Index (BMI) 21.8 Intake and Output for Last 24 Hours 09/15/18 09/16/18 09/17/18 23:59 23:59 23:59 Intake Total 4349.8 / 4349.8 463 / 463 600 / 600 Output Total 2175 / 2175 700 / 700 Balance 2174.8 / 2174.8 -237 / -237 600 / 600 Laboratory Tests Past 24 Hrs 09/16/18 09/17/18 09/17/18 06:02 05:30 05:30 WBC Pending RBC Pending Hgb Pending Hct Pending MCV Pending MCH Pending MCHC Pending RDW Pending RDW Differential Pending Plt Count Pending Neut % (Auto) Pending Absolute Neuts (auto) Pending Total Counted Pending Sodium 139 Pending Potassium 4.7 Pending Chloride 103 Pending Carbon Dioxide 28.0 Pending Anion Gap 8 Pending BUN 24 H Pending Creatinine 1.31 H Pending Estim Creat Clear Calc 66.37 Est GFR (MDRD) Af Amer 71 Pending Est GFR (MDRD) Non-Af 59 L Pending BUN/Creatinine Ratio 18.3 Pending Glucose 133 H Pending Calcium 8.5 Pending Phosphorus Pending Magnesium Pending Total Bilirubin Pending AST Pending ALT Pending Alkaline Phosphatase Pending Total Protein Pending Albumin Pending Prealbumin Pending Medical Necessity - Tobacco Use Smoking Status: Never smoker Assessment/Plan All Active Problems Partial small bowel obstruction (Acute) New onset atrial fibrillation (Resolved) Hypotension (Resolved) perforated cecal cancer requiring initial laparoscopic right hemicolectomy and subsequent exploration with sigmoid resection, right kidney and ureter resection so as muscle and debulking in 2015. Now with small bowel obstruction. noted improved with conservative management. Postoperatively #9 status post laparoscopic converted to exploratory laparotomy with very extensive lysis of adhesions-greater than 2 hours, repair of small bowel enterotomy and segmental small bowel resection due to stricture with compromised bowel noted at area of tightest band. final pathology demonstrates no recurrent malignancy. abdominal multiview this morning still showed worsening SOB/Ileus and patient vomited. Plan for PEG tube placement for alternating decompression and feeding. Patient clinically deconditioned and considerable malnutrition. Even if tolerating liquids anticipate he will need SNF or LTAC placement for continued TPN and reconditioning. given his overall clinical status of protein wasting and failure for quick resolution - on TPN.
[2018-09-17 06:11] LABS: ALB/GLOB Ratio 0.6 RATIO (0.9-2.4); AST(SGOT) 23 U/L (15-37); Alanine Aminotransfer ALT/SGPT 52 U/L (16-61); Albumin, Serum 2.5 g/dL (3.2-5.0); Alkaline Phosphatase 260 U/L (45-117); Anion Gap 9 (5-15); BUN 32 mg/dL (7-18); BUN/Creat Ratio 21.2 RATIO (10-20); Calcium,Total 8.9 mg/dL (8.5-10.1); Chloride 103 mmol/L (98-107); Creatinine, Serum 1.51 mg/dL (0.70-1.30); EST Glomerular Filtration Rate 50 mL/min (>60); Est Glom Filt Rate - Afr Amer 60 mL/min (>60); Globulin 4.3 g/dL (2.2-4.2); Glucose 160 mg/dL (74-106); Magnesium 2.2 mg/dL (1.6-2.6); Phosphorus 3.3 mg/dL (2.5-4.9); Potassium 4.9 mmol/L (3.5-5.1); Prealbumin 18.4 mg/dL (20.0-40.0); Protein, Total 6.8 g/dL (6.4-8.2); Sodium Level 138 mmol/L (136-145)
[2018-09-17 06:13] LABS: POSITIVE COUNT NO; POSITIVE DIFFERENTIAL NO; POSITIVE MORPHOLOGY NO
--- NOTE | 2018-09-17 07:34 | NURSING ---
dr daniel paged re:procedure time 10:30 for peg tube placement and pt had heparin @ 05:48
--- NOTE | 2018-09-17 09:55 | PN_ITS ---
Patient Problems: Active and Suspected Problems Partial small bowel obstruction (Acute) Subjective: Multiple episodes of emesis last night, still with flatus this morning. No chest pain or shortness of breath. He continues to ambulate around the unit. Vitals/I&O's: Vital Signs Temp Pulse Resp BP Pulse Ox 97.8 F 95 18 129/66 H 94 09/17/18 03:00 09/17/18 03:00 09/17/18 03:00 09/17/18 03:00 09/17/18 07:06 Oxygen Flow Rate (L/min) 2 Oxygen Delivery Method Room Air Weight: 160 lb 14.999 oz Body Mass Index (BMI) 21.8 Intake and Output for Last 24 Hours 09/15/18 09/16/18 09/17/18 23:59 23:59 23:59 Intake Total 4349.8 / 4349.8 463 / 463 1100 / 1100 Output Total 2175 / 2175 700 / 700 Balance 2174.8 / 2174.8 -237 / -237 1100 / 1100 General: Alert, Oriented x3, Cooperative, No apparent distress HEENT: Atraumatic, EOMI, Normocephalic, Oral: Moist Mucosa Neck: Supple, No JVD Lungs: Clear to auscultation, Normal air movement, No rhonchi, No wheeze, No rales Cardiovascular: Regular rate, Regular Rhythm, Normal S1, Normal S2, No murmurs Abdomen: Soft, Non-Distended, No Hepato-splenomegaly, Tender - around incision Extremities: No edema, Capillary Refill Less than 3 Seconds Skin: No rashes, No breakdown, Incision - CDI Neurological: Neuro grossly intact, Sensory exam intact to light touch and pain Psych/Mental Status: Normal Affect, Appropriate Laboratory Results 09/17/18 05:30: WBC 13.2 H, RBC 4.43 L, Hgb 14.4, Hct 43.3, MCV 97.7 H, MCH 32.5 H, MCHC 33.3, RDW 12.2, RDW Differential 43.7, Plt Count 517 H, MPV 9.3, Immature Gran % (Auto) 0.800, Neut % (Auto) 86.9 H, Lymph % (Auto) 6.2 L, [place] % (Auto) 5.3, Eos % (Auto) 0.5, Baso % (Auto) 0.3, Absolute Neuts (auto) 11.5 H, Absolute Lymphs (auto) 0.82 L, Total Counted Not Reportable 09/17/18 05:30: Sodium 138, Potassium 4.9, Chloride 103, Carbon Dioxide 26.0, Anion Gap 9, BUN 32 H, Creatinine 1.51 H, Estim Creat Clear Calc 51.70, Est GFR (MDRD) Af Amer 60, Est GFR (MDRD) Non-Af 50 L, BUN/Creatinine Ratio 21.2 H, Glucose 160 H, Calcium 8.9, Phosphorus 3.3, Magnesium 2.2, Total Bilirubin 0.60, AST 23, ALT 52, Alkaline Phosphatase 260 H, Total Protein 6.8, Albumin 2.5 L, Globulin 4.3 H, Albumin/Globulin Ratio 0.6 L, Prealbumin 18.4 L Current Medications Dextrose (D50w Syringe) 0 gm IV X1 PRN; Protocol PRN Reason: Hypoglycemia Glucagon () 1 mg IM .X1 PRN PRN Reason: Hypoglycemia Heparin Sodium (Porcine) (Heparin Na) 5,000 unit SC Q8 OLINDA Last Admin: 09/17/18 05:48 Dose: 5,000 unit Hydralazine HCl (Apresoline Iv) 5 mg IV Q4H PRN PRN PRN Reason: SBP > 160 Naloxone HCl 4 mg/ Dextrose 504 mls @ 0 mls/hr IV .Q0M PRN; Protocol PRN Reason: To maintain Resp. rate >10 Multivitamins 10 ml/ Chromium/Copper/Manganese/Seleni/Zn 1 ml/ Folic Acid 1 mg/Famotidine 40 mg/ Amino Acids/Electrolytes 2,015.2 mls @ 84 mls/hr IV .Q24H [facility] Stop: 09/17/18 15:59 Last Admin: 09/16/18 16:13 Dose: 84 mls/hr Lorazepam (Ativan) 0.5 mg IV Q4H PRN PRN PRN Reason: RESTLESSNESS Last Admin: 09/17/18 06:05 Dose: 0.5 mg Magnesium Hydroxide (Milk Of Magnesia) 30 ml PO DAILY PRN PRN PRN Reason: Constipation Morphine Sulfate () 1 - 3 mg IV Q1H PRN PRN PRN Reason: SEVERE PAIN (6-10/10) Last Admin: 09/16/18 20:55 Dose: 3 mg Morphine Sulfate () 1 - 3 mg IV Q1H PRN PRN PRN Reason: SEVERE PAIN (6-10/10) Multi-Ingredient Ointment (Aquaphor) 1 applic TOPICAL PRN PRN; Protocol PRN Reason: ULCERATED NARES Ondansetron HCl (Zofran) 4 mg IV Q6H PRN PRN PRN Reason: NAUSEA/VOMITING Last Admin: 09/16/18 19:29 Dose: 4 mg Phenol/Menthol (Chloraseptic (Bkc)) 3 spray MM Q2H PRN PRN PRN Reason: SORE THROAT Last Admin: 09/13/18 13:06 Dose: 3 spray Prochlorperazine Edisylate (Compazine Iv) 5 mg IV Q4H PRN PRN PRN Reason: NAUSEA/VOMITING Last Admin: 09/17/18 04:16 Dose: 5 mg Sodium Chloride () 5 - 15 ml IV UD PRN PRN Reason: SALINE FLUSH Last Admin: 09/16/18 02:12 Dose: 10 ml Throat Lozenges (Cepacol Sore Throat Lozenge) 1 lozenge MUCOUS MEM Q1H PRN PRN PRN Reason: SORE THROAT Medical Necessity - Tobacco Use Smoking Status: Never smoker Assessment/Plan All Active Problems Partial small bowel obstruction (Acute) New onset atrial fibrillation (Resolved) Hypotension (Resolved) 1. SBO s/p ex-lap POD 9/Severe protein malnutrition - Morphine PRN - C/w with ambulation and gum chewing -Did not tolerate clears yesterday had episodes of vomiting overnight -Plan for PEG tube today - C/w TPN and monitor accordingly -He would prefer to go home with home health for the TPN considering he is able to ambulate around unit 2. Stage 4 colon cancer - Resected in 2016 and being treated with Keytruda which he is tolerating well -Discussed the Keytruda with his oncologist who states that he can receive an infusion on the day or day after discharge DVT: Heparin SC Code Visit Inpatient E&M: 79404 Subs Hosp L2
[2018-09-17] MEDS: Cefazolin 2 GM in 0.9% Normal Saline 100 ML IV (10:45)
--- NOTE | 2018-09-17 11:06 | OP.ENDO_ITS ---
Patient Name: Anderson Harvey Procedure Date: 09/17/2018 10:29 AM Date of : 1955 Age: 62 Procedure: Upper GI endoscopy Indications: Nausea with vomiting Providers: Anderson Santamaria MD Referring MD: Josep Allen Medicines: Monitored Anesthesia Care Patient Profile: This is a 62 year old male. Refer to note in patient chart for documentation of history and physical. Patient has symptoms. Complications: No immediate complications. Procedure: Pre-Anesthesia Assessment: - Prior to the procedure, a History and Physical was performed, and patient medications and allergies were reviewed. The patient is competent. The risks and benefits of the procedure and the sedation options and risks were discussed with the patient. All questions were answered and informed consent was obtained. Patient identification and proposed procedure were verified by the physician, the nurse and the cable tender in the procedure room. Mental Status Examination: alert and oriented. Airway Examination: normal oropharyngeal airway and neck mobility. Respiratory Examination: clear to auscultation. CV Examination: normal. Prophylactic Antibiotics: The patient does not require prophylactic antibiotics. Prior Anticoagulants: The patient has taken no previous anticoagulant or antiplatelet agents. ASA Grade Assessment: III - A patient with severe systemic disease. After reviewing the risks and benefits, the patient was deemed in satisfactory condition to undergo the procedure. The anesthesia plan was to use monitored anesthesia care (MAC). Immediately prior to administration of medications, the patient was re-assessed for adequacy to receive sedatives. The heart rate, respiratory rate, oxygen saturations, blood pressure, adequacy of pulmonary ventilation, and response to care were monitored throughout the procedure. The physical status of the patient was re-assessed after the procedure. After obtaining informed consent, the endoscope was passed under direct vision. Throughout the procedure, the patient's blood pressure, pulse, and oxygen saturations were monitored continuously. The gastroscope was introduced through the mouth, and advanced to the third part of duodenum. The upper GI endoscopy was accomplished without difficulty. The patient tolerated the procedure well. Scope In: 10:45:41 AM Scope Out: 10:58:05 AM Total Procedure Duration Time 0 hours 12 minutes 24 seconds Findings: The in the duodenum was normal. Localized moderate inflammation characterized by adherent blood and erosions was found in the entire examined stomach. Biopsies were taken with a cold forceps for histology. The anterior wall of the stomach was normal. Placement of an externally removable PEG with no T-fasteners was successfully completed. The external bumper was at the 2.5 cm marking on the tube. Impression: - Normal. - Erosive gastritis. Biopsied. - Normal anterior wall of the stomach. - An externally removable PEG placement was successfully completed. Recommendation: - Discharge patient to home. - Continue present medications. Procedure Code(s): --- Professional --- 03429, Esophagogastroduodenoscopy, flexible, transoral; with directed placement of percutaneous gastrostomy tube 63568, Esophagogastroduodenoscopy, flexible, transoral; with biopsy, single or multiple CPT copyright 2017 [employer]. All rights reserved. The codes documented in this report are preliminary and upon brushing operator review may be revised to meet current compliance requirements. Anderson Santamaria MD 09/17/2018 11:05:51 AM This report has been signed electronically. Number of Addenda: 0 Note Initiated On: 09/17/2018 10:29 AM
--- NOTE | 2018-09-17 11:47 | NS ---
Call from meat processing center manager Adriane to determine needs for discharge home w/ home health. Per Adriane, Dr. Mancia asking about cycling TPN/ starting enteral tube feeds prior to discharge as PEG was placed this date for alternate decompression/feeding. Considering pt's significant wt loss since admission (8.3 kg/10% in 14 days) and inability to tolerate clear liquids yesterday, I would strongly discourage decreasing pt's TPN at this time to a 12-hour nocturnal feed until ability to tolerate enteral feedings is established. Pt would also need an specialized enteral formula d/t his severely impaired GI function (i.e Vivonex RTF produced by [employer]- would be a special order at [facility]). Per Adriane, pt will have [facility] Home Health and a dietitian available to manage TPN/EN feedings at home. I do not anticipate pt will be able to meet his estimated nutritional needs via enteral feeds in the immediate future and suspect it will take some time before pt could be weaned from TPN. Please call RD with further questions, ext. [phone]. Khalif Coto MS, RDN, LD
--- NOTE | 2018-09-17 12:45 | IMM_PTH ---
PATIENT: SIMON PEACOCK LOC: MS3 U#:[id number] AGE/SX: 62/M ROOM: KS321 RE09/03/[address]: Dr. Lisa Glass MD : 1955 BED: 1 DIS: 09/27/2018 SPEC #: [id number] RECD: 09/20/18 10:06 STATUS: [place] REQ #: [id number] JOEL: 09/17/18 12:[address]: Simon Santamaria DEPT: IMMUNOHISTOCHEMISTRY RECD BY: Marce Cleary ENTERED: 09/20/18 10:09 SP TYPE: IMMUNO OTHR DR: MD Dr. Lisa Khan MD No Primary Care Phys Tissues: Stomach, NOS Procedures: H Pylori (initial) PHYSICIAN & INSTITUTION [place] [address] SPECIMEN INFORMATION: Tissue Source: Exploratory laparoscopy Clinical Info: Small bowel obstruction Specimen Number: [id number] CPT code: 22733 METHODOLOGY: Deparaffinized sections of prefer/formalin-fixed tissue or PAP/DQ stained slides are incubated with monoclonal/polyclonal antibodies/oligonucleotide probes. Localization is made via biotin free immunoperoxidase method. Appropriate controls are performed and reacted as expected. Results on target cell population are indicated in the following table: RESULTS: ANTIBODY / CLONE RESULT H Pylori (polyclonal) negative These tests were developed and their performance characteristics determined by [facility]. They may not have been cleared or approved by the U.S. Food and Drug Administration. The FDA has determined that such clearance or approval is not necessary. INTERPRETATION: Antrum biopsy: Negative for Helicobacter pylori organisms. AM:khris 09/20/18
--- NOTE | 2018-09-17 12:45 | GASB_PTH ---
PATIENT: SIMON PEACOCK LOC: MS3 U#:[id number] AGE/SX: 62/M ROOM: NC321 RE09/03/[address]: Dr. Lisa Glass MD : 1955 BED: 1 DIS: 09/27/2018 SPEC #: [id number] RECD: 09/17/18 14:40 STATUS: [place] REQ #: [id number] JOEL: 09/17/18 12:[address]: Simon Santamaria DEPT: SURGICAL PATHOLOGY RECD BY: Simon Carty ENTERED: 09/17/18 14:40 SP TYPE: Gastric Bx OTHR DR: MD Dr. Ashkan Khan MD Dr. Richard Guttman, MD No Primary Care Phys Tissues: Gastric mucous membrane Procedures: Surgery Specimen Level IV Comments: @ Ordering doctor for SUIV edited from to DR.RGUTTM Burrows by FCO at 09/17/18 1559 @ Submitting doctor edited from to DR.RGUTTM Burrows by MAYRAOD at 09/17/18 1559 HEADER OPERATION: Exploratory laparoscopy converted to open exploratory laparoscopy PRE-OP DIAGNOSIS: Small bowel obstruction TISSUE SUBMITTED: Antrum biopsy for H. pylori and path MICROSCOPIC DIAGNOSIS Gastric antrum, biopsy: Mild chronic gastritis. See comment. AM:khris 09/20/18 COMMENT The results of immunohistochemistry for Helicobacter pylori will be reported separately ([id number]). MICROSCOPIC DESCRIPTION Slides are reviewed. GROSS DESCRIPTION Received in fixative is one container labeled with the patient's name and designated antrum biopsy. The specimen consists of one irregular fragment of light alejandro soft tissue that measures 0.3 x 0.2 x 0.1 cm. The specimen is totally submitted in one cassette. / AM:khris 09/17/18 TC:3 CPT: 93661
[2018-09-17] MEDS: Morphine 2 MG/ML Syringe IV (15:30)
[2018-09-17] MEDS: Ondansetron 4 MG/2 ML Vial IV (15:31)
[2018-09-17] MEDS: Fat Emulsions 20% 250 ML IV (16:34)
--- NOTE | 2018-09-17 18:06 | CASEMGMT ---
Social Work Note SW was updated that pt may be interested in [facility] at discharge. HERMILA faxed referral to [facility]. Desiree at [facility] states she will have to run financials for pt to determine what the costs will be. HERMILA waiting for call back from Desiree at [facility]. Plan: MARIE Oliva [employer] SAL[employer] LEADER, DIRECTOR OF TRAINING
[2018-09-17] MEDS: 0.9% NaCl Peripheral Flush Adult/Peds IV (22:31)
[2018-09-18 03:00] VITALS: BP 109/86; PULSE 87; RESP 18; TEMP 36.6; O2SAT 97
[2018-09-18] MEDS: LORazepam 2 MG/ML Syringe 0.5 MG IV ×2 (04:26→22:02)
[2018-09-18] MEDS: 0.9% NaCl Peripheral Flush Adult/Peds IV (04:26)
[2018-09-18] MEDS: Heparin Injection (Vial) 5,000 UNIT/ML VIAL 5000 UNIT SC ×3 (06:09→21:13)
[2018-09-18 06:37] LABS: Absolute Lymphocyte Count 1.14 X10^3/ul (0.83-4.51); Absolute Neutrophil Count 7.2 X10^3/uL (2.0-7.7); Basophil# 0.06 X10^3/uL; Basophil% 0.6 % (0-1); Eosinophil# 0.24 X10^3/uL; Eosinophils% 2.5 % (0-5); Hematocrit 40.4 % (40-54); Hemoglobin 13.1 g/dl (13.0-16.5); Lymphocyte # 1.14 X10^3/ul (4.0); Lymphocyte % 11.9 % (19-41); Mean Corp Hgb Conc 32.4 g/gl (32-36); Mean Corpuscular Hgb 32.5 pg (27.0-32.0); Mean Corpuscular Volume 100.2 fL (80-94); Mean Platelet Vol. 9.2 fl (6.2-12.0); Monocyte# 0.88 X10^3/uL; Monocyte% 9.2 % (0-10); Neutrophil # 7.15 X10^3/uL (2.7-7.7); Platelet Count 540 K/mm3 (150-450); RBC Distribution Width CV 11.9 % (11.6-14.6); RBC Distribution Width SD 43.2 fl (35.1-43.9); Red Blood Count 4.03 M/mm3 (4.6-6.2); White Blood Count 9.6 K/mm3 (4.4-11.0)
[2018-09-18 06:44] LABS: POSITIVE COUNT NO; POSITIVE DIFFERENTIAL NO; POSITIVE MORPHOLOGY NO
[2018-09-18 07:02] LABS: Anion Gap 6 (5-15); BUN 26 mg/dL (7-18); BUN/Creat Ratio 19.5 RATIO (10-20); Calcium,Total 8.4 mg/dL (8.5-10.1); Chloride 103 mmol/L (98-107); Creatinine, Serum 1.33 mg/dL (0.70-1.30); EST Glomerular Filtration Rate 58 mL/min (>60); Est Glom Filt Rate - Afr Amer 70 mL/min (>60); Glucose 136 mg/dL (74-106); Magnesium 2.2 mg/dL (1.6-2.6); Phosphorus 3.2 mg/dL (2.5-4.9); Sodium Level 137 mmol/L (136-145)
[2018-09-18 08:35] VITALS: BP 106/54; PULSE 75; RESP 18; TEMP 36.8; O2SAT 98
--- NOTE | 2018-09-18 10:29 | PCM.PN.HOSP ---
Patient Problems: Active and Suspected Problems Partial small bowel obstruction (Acute) Subjective: Doing well, pain is controlled around the incision and PEG tube. No more nausea and having drainage into the Mosher bag. 5 mL's of drainage since yesterday from his PEG tube. Vitals/I&O's: Vital Signs Temp Pulse Resp BP Pulse Ox 98.2 F 75 18 106/54 L 98 09/18/18 08:35 09/18/18 08:35 09/18/18 08:35 09/18/18 08:35 09/18/18 08:35 Oxygen Flow Rate (L/min) 2 Oxygen Delivery Method Room Air Weight: 160 lb 14.999 oz Body Mass Index (BMI) 21.8 Intake and Output for Last 24 Hours 09/16/18 09/17/18 09/18/18 23:59 23:59 23:59 Intake Total 463 / 463 2786 / 2786 2009 Output Total 700 / 700 800 / 800 525 / 525 Balance -237 / -237 1985 1485 / 1485 General: Alert, Oriented x3, Cooperative, No apparent distress HEENT: Atraumatic, EOMI, Normocephalic, Oral: Moist Mucosa Neck: Supple, No JVD Lungs: Clear to auscultation, Normal air movement, No rhonchi, No wheeze, No rales Cardiovascular: Regular rate, Regular Rhythm, Normal S1, Normal S2, No murmurs Abdomen: Soft, Non-Distended, No Hepato-splenomegaly, min tender - around incision and PEG Extremities: No edema, Capillary Refill Less than 3 Seconds Skin: No rashes, No breakdown, Incision - CDI Neurological: Neuro grossly intact, Sensory exam intact to light touch and pain Psych/Mental Status: Normal Affect, Appropriate Laboratory Results 09/18/18 06:20: Sodium 137, Potassium 5.0, Chloride 103, Carbon Dioxide 28.0, Anion Gap 6, BUN 26 H, Creatinine 1.33 H, Estim Creat Clear Calc 58.70, Est GFR (MDRD) Af Amer 70, Est GFR (MDRD) Non-Af 58 L, BUN/Creatinine Ratio 19.5, Glucose 136 H, Calcium 8.4 L, Phosphorus 3.2, Magnesium 2.2 09/18/18 06:20: WBC 9.6, RBC 4.03 L, Hgb 13.1, Hct 40.4, MCV 100.2 H, MCH 32.5 H, MCHC 32.4, RDW 11.9, RDW Differential 43.2, Plt Count 540 H, MPV 9.2, Immature Gran % (Auto) 0.800, Neut % (Auto) 75.0 H, Lymph % (Auto) 11.9 L, Grant % (Auto) 9.2, Eos % (Auto) 2.5, Baso % (Auto) 0.6, Absolute Neuts (auto) 7.2, Absolute Lymphs (auto) 1.14, Total Counted Not Reportable Current Medications Dextrose (D50w Syringe) 0 gm IV X1 PRN; Protocol PRN Reason: Hypoglycemia Glucagon () 1 mg IM .X1 PRN PRN Reason: Hypoglycemia Heparin Sodium (Porcine) (Heparin Na) 5,000 unit SC Q8 [facility] Last Admin: 09/18/18 06:09 Dose: 5,000 unit Hydralazine HCl (Apresoline Iv) 5 mg IV Q4H PRN PRN PRN Reason: SBP > 160 Naloxone HCl 4 mg/ Dextrose 504 mls @ 0 mls/hr IV .Q0M PRN; Protocol PRN Reason: To maintain Resp. rate >10 Multivitamins 10 ml/ Chromium/Copper/Manganese/Seleni/Zn 1 ml/ Folic Acid 1 mg/ Amino Acids/Electrolytes 2,011.2 mls @ 84 mls/hr IV .[id number] [facility] Stop: 09/18/18 15:56 Last Admin: 09/17/18 16:34 Dose: 84 mls/hr Pantoprazole Sodium 40 mg/ (Sodium Chloride) 110 mls @ 330 mls/hr IV DAILY@1500 [facility] Last Admin: 09/17/18 16:00 Dose: 330 mls/hr Lorazepam (Ativan) 0.5 mg IV Q4H PRN PRN PRN Reason: RESTLESSNESS Last Admin: 09/18/18 04:26 Dose: 0.5 mg Magnesium Hydroxide (Milk Of Magnesia) 30 ml PO DAILY PRN PRN PRN Reason: Constipation Morphine Sulfate () 1 - 3 mg IV Q1H PRN PRN PRN Reason: SEVERE PAIN (6-10/10) Last Admin: 09/17/18 15:30 Dose: 2 mg Morphine Sulfate () 1 - 3 mg IV Q1H PRN PRN PRN Reason: SEVERE PAIN (6-10/10) Multi-Ingredient Ointment (Aquaphor) 1 applic TOPICAL PRN PRN; Protocol PRN Reason: ULCERATED NARES Ondansetron HCl (Zofran) 4 mg IV Q6H PRN PRN PRN Reason: NAUSEA/VOMITING Last Admin: 09/17/18 15:31 Dose: 4 mg Phenol/Menthol (Chloraseptic (Bkc)) 3 spray MM Q2H PRN PRN PRN Reason: SORE THROAT Last Admin: 09/13/18 13:06 Dose: 3 spray Prochlorperazine Edisylate (Compazine Iv) 5 mg IV Q4H PRN PRN PRN Reason: NAUSEA/VOMITING Last Admin: 09/17/18 11:54 Dose: 5 mg Sodium Chloride () 5 - 15 ml IV UD PRN PRN Reason: SALINE FLUSH Last Admin: 09/18/18 04:26 Dose: 10 ml Throat Lozenges (Cepacol Sore Throat Lozenge) 1 lozenge MUCOUS MEM Q1H PRN PRN PRN Reason: SORE THROAT Medical Necessity - Tobacco Use Smoking Status: Never smoker Assessment/Plan All Active Problems Partial small bowel obstruction (Acute) New onset atrial fibrillation (Resolved) Hypotension (Resolved) 1. SBO s/p ex-lap POD 10/Severe protein malnutrition - Morphine PRN - C/w with ambulation and gum chewing -Underwent PEG tube placement yesterday, draining into Mosher bag -Okay for clears - C/w TPN and monitor accordingly -Now that his care is complicated by both TPN and a PEG tube with drainage, he would prefer to go to either correction facility or an LTAC I have discussed with him that he would have to be here through the weekend and that we may have difficulty in getting him placed at which point he would have to go home with home health though I do believe that he would be better served at a correction facility or LTAC. 2. Stage 4 colon cancer - Resected in 2016 and being treated with Keytruda which he is tolerating well -Discussed the Keytruda with his oncologist who states that he can receive an infusion on the day or day after discharge DVT: Heparin SC Code Visit Inpatient E&M: [id number] [facility] Hosp L2
--- NOTE | 2018-09-18 10:33 | PN_ITS ---
Patient Problems: Active and Suspected Problems Partial small bowel obstruction (Acute) Subjective: Doing well, pain is controlled around the incision and PEG tube. No more nausea and having drainage into the Mosher bag. 5 mL's of drainage since yesterday from his PEG tube. Vitals/I&O's: Vital Signs Temp Pulse Resp BP Pulse Ox 98.2 F 75 18 106/54 L 98 09/18/18 08:35 09/18/18 08:35 09/18/18 08:35 09/18/18 08:35 09/18/18 08:35 Oxygen Flow Rate (L/min) 2 Oxygen Delivery Method Room Air Weight: 160 lb 14.999 oz Body Mass Index (BMI) 21.8 Intake and Output for Last 24 Hours 09/16/18 09/17/18 09/18/18 23:59 23:59 23:59 Intake Total 463 / 463 2786 / 2786 2009 Output Total 700 / 700 800 / 800 525 / 525 Balance -237 / -237 1985 1485 / 1485 General: Alert, Oriented x3, Cooperative, No apparent distress HEENT: Atraumatic, EOMI, Normocephalic, Oral: Moist Mucosa Neck: Supple, No JVD Lungs: Clear to auscultation, Normal air movement, No rhonchi, No wheeze, No rales Cardiovascular: Regular rate, Regular Rhythm, Normal S1, Normal S2, No murmurs Abdomen: Soft, Non-Distended, No Hepato-splenomegaly, min tender - around incision and PEG Extremities: No edema, Capillary Refill Less than 3 Seconds Skin: No rashes, No breakdown, Incision - CDI Neurological: Neuro grossly intact, Sensory exam intact to light touch and pain Psych/Mental Status: Normal Affect, Appropriate Laboratory Results 09/18/18 06:20: Sodium 137, Potassium 5.0, Chloride 103, Carbon Dioxide 28.0, Anion Gap 6, BUN 26 H, Creatinine 1.33 H, Estim Creat Clear Calc 58.70, Est GFR (MDRD) Af Amer 70, Est GFR (MDRD) Non-Af 58 L, BUN/Creatinine Ratio 19.5, Glucose 136 H, Calcium 8.4 L, Phosphorus 3.2, Magnesium 2.2 09/18/18 06:20: WBC 9.6, RBC 4.03 L, Hgb 13.1, Hct 40.4, MCV 100.2 H, MCH 32.5 H , MCHC 32.4, RDW 11.9, RDW Differential 43.2, Plt Count 540 H, MPV 9.2, Immature Gran % (Auto) 0.800, Neut % (Auto) 75.0 H, Lymph % (Auto) 11.9 L, Reynolds % (Auto) 9.2, Eos % (Auto) 2.5, Baso % (Auto) 0.6, Absolute Neuts (auto) 7.2, Absolute Lymphs (auto) 1.14, Total Counted Not Reportable Current Medications Dextrose (D50w Syringe) 0 gm IV X1 PRN; Protocol PRN Reason: Hypoglycemia Glucagon () 1 mg IM .X1 PRN PRN Reason: Hypoglycemia Heparin Sodium (Porcine) (Heparin Na) 5,000 unit SC Q8 [facility] Last Admin: 09/18/18 06:09 Dose: 5,000 unit Hydralazine HCl (Apresoline Iv) 5 mg IV Q4H PRN PRN PRN Reason: SBP > 160 Naloxone HCl 4 mg/ Dextrose 504 mls @ 0 mls/hr IV .Q0M PRN; Protocol PRN Reason: To maintain Resp. rate >10 Multivitamins 10 ml/ Chromium/Copper/Manganese/Seleni/Zn 1 ml/ Folic Acid 1 mg/ Amino Acids/Electrolytes 2,011.2 mls @ 84 mls/hr IV .[id number] [facility] Stop: 09/18/18 15:56 Last Admin: 09/17/18 16:34 Dose: 84 mls/hr Pantoprazole Sodium 40 mg/ (Sodium Chloride) 110 mls @ 330 mls/hr IV DAILY@1500 [facility] Last Admin: 09/17/18 16:00 Dose: 330 mls/hr Lorazepam (Ativan) 0.5 mg IV Q4H PRN PRN PRN Reason: RESTLESSNESS Last Admin: 09/18/18 04:26 Dose: 0.5 mg Magnesium Hydroxide (Milk Of Magnesia) 30 ml PO DAILY PRN PRN PRN Reason: Constipation Morphine Sulfate () 1 - 3 mg IV Q1H PRN PRN PRN Reason: SEVERE PAIN (6-10/10) Last Admin: 09/17/18 15:30 Dose: 2 mg Morphine Sulfate () 1 - 3 mg IV Q1H PRN PRN PRN Reason: SEVERE PAIN (6-10/10) Multi-Ingredient Ointment (Aquaphor) 1 applic TOPICAL PRN PRN; Protocol PRN Reason: ULCERATED NARES Ondansetron HCl (Zofran) 4 mg IV Q6H PRN PRN PRN Reason: NAUSEA/VOMITING Last Admin: 09/17/18 15:31 Dose: 4 mg Phenol/Menthol (Chloraseptic (Bkc)) 3 spray MM Q2H PRN PRN PRN Reason: SORE THROAT Last Admin: 09/13/18 13:06 Dose: 3 spray Prochlorperazine Edisylate (Compazine Iv) 5 mg IV Q4H PRN PRN PRN Reason: NAUSEA/VOMITING Last Admin: 09/17/18 11:54 Dose: 5 mg Sodium Chloride () 5 - 15 ml IV UD PRN PRN Reason: SALINE FLUSH Last Admin: 09/18/18 04:26 Dose: 10 ml Throat Lozenges (Cepacol Sore Throat Lozenge) 1 lozenge MUCOUS MEM Q1H PRN PRN PRN Reason: SORE THROAT Medical Necessity - Tobacco Use Smoking Status: Never smoker Assessment/Plan All Active Problems Partial small bowel obstruction (Acute) New onset atrial fibrillation (Resolved) Hypotension (Resolved) 1. SBO s/p ex-lap POD 10/Severe protein malnutrition - Morphine PRN - C/w with ambulation and gum chewing -Underwent PEG tube placement yesterday, draining into Mosher bag -Okay for clears - C/w TPN and monitor accordingly -Now that his care is complicated by both TPN and a PEG tube with drainage, he would prefer to go to either penitentiary facility or an LTAC I have discussed with him that he would have to be here through the weekend and that we may have difficulty in getting him placed at which point he would have to go home with home health though I do believe that he would be better served at a penitentiary facility or LTAC. 2. Stage 4 colon cancer - Resected in 2016 and being treated with Keytruda which he is tolerating well -Discussed the Keytruda with his oncologist who states that he can receive an infusion on the day or day after discharge DVT: Heparin SC Code Visit Inpatient E&M: [id number] [facility] [[email or web address]] Hosp L2
[2018-09-18 16:35] VITALS: BP 111/61; PULSE 74; RESP 18; TEMP 37.2; O2SAT 98
[2018-09-18 21:01] VITALS: BP 117/63; PULSE 80; RESP 18; TEMP 36.5; O2SAT 94
--- NOTE | 2018-09-18 21:57 | PN.SURG_ITS ---
Patient Problems: Active and Suspected Problems Partial small bowel obstruction (Acute) Subjective: Patient doing well, minimal abdominal pain - mostly at gtube site - Physical Exam General: Alert, Oriented x3 Neck: Supple Abdomen: Soft, - - wound is healing well, no evidence of infection, gtube to drainage Vital Signs Temp Pulse Resp BP Pulse Ox 97.7 F L 80 18 117/63 94 09/18/18 21:01 09/18/18 21:01 09/18/18 21:01 09/18/18 21:01 09/18/18 21:01 Oxygen Flow Rate (L/min) 2 Oxygen Delivery Method Room Air Weight: 73 kg Body Mass Index (BMI) 21.8 Intake and Output for Last 24 Hours 09/16/18 09/17/18 09/18/18 23:59 23:59 23:59 Intake Total 463 / 463 2786 / 2786 3050 / 3050 Output Total 700 / 700 800 / 800 1425 / 1425 Balance -237 / -237 1985 / 1985 1625 / 1625 Laboratory Tests Past 24 Hrs 09/18/18 09/18/18 06:20 06:20 WBC 9.6 RBC 4.03 L Hgb 13.1 Hct 40.4 MCV 100.2 H MCH 32.5 H MCHC 32.4 RDW 11.9 RDW Differential 43.2 Plt Count 540 H MPV 9.2 Immature Gran % (Auto) 0.800 Neut % (Auto) 75.0 H Lymph % (Auto) 11.9 L Stanley % (Auto) 9.2 Eos % (Auto) 2.5 Baso % (Auto) 0.6 Absolute Neuts (auto) 7.2 Absolute Lymphs (auto) 1.14 Total Counted Not Reportable Sodium 137 Potassium 5.0 Chloride 103 Carbon Dioxide 28.0 Anion Gap 6 BUN 26 H Creatinine 1.33 H Estim Creat Clear Calc 58.70 Est GFR (MDRD) Af Amer 70 Est GFR (MDRD) Non-Af 58 L BUN/Creatinine Ratio 19.5 Glucose 136 H Calcium 8.4 L Phosphorus 3.2 Magnesium 2.2 Medical Necessity - Tobacco Use Smoking Status: Never smoker Assessment/Plan All Active Problems Partial small bowel obstruction (Acute) New onset atrial fibrillation (Resolved) Hypotension (Resolved) Impression: POD#10 s/p laparotomy, small bowel resection, extensive lysis of adhesions PEG tube placed yesterday for persistent ileus Plan: Continue AMMON patient awaiting placement for rehab unit
[2018-09-19 02:17] VITALS: BP 114/59; PULSE 82; RESP 18; TEMP 36.5; O2SAT 97
[2018-09-19] MEDS: LORazepam 2 MG/ML Syringe 0.5 MG IV ×2 (02:32→21:07)
[2018-09-19] MEDS: Heparin Injection (Vial) 5,000 UNIT/ML VIAL 5000 UNIT SC ×3 (05:10→21:07)
--- NOTE | 2018-09-19 06:49 | PN_ITS ---
Patient Problems: Active and Suspected Problems Partial small bowel obstruction (Acute) Subjective: Doing well, pain is controlled around the incision and PEG tube. No nausea, or vomiting. He was tolerating some liquid yesterday and his Mosher bag is draining the PEG tube well. Vitals/I&O's: Vital Signs Temp Pulse Resp BP Pulse Ox 97.7 F L 82 18 114/59 L 97 09/19/18 02:17 09/19/18 02:17 09/19/18 02:17 09/19/18 02:17 09/19/18 02:17 Oxygen Flow Rate (L/min) 2 Oxygen Delivery Method Room Air Weight: 160 lb 14.999 oz Body Mass Index (BMI) 21.8 Intake and Output for Last 24 Hours 09/17/18 09/18/18 09/19/18 23:59 23:59 23:59 Intake Total 2786 / 2786 3050 / 3050 1060 / 1060 Output Total 800 / 800 1425 / 1425 1000 / 1000 Balance 1985 / 1985 1625 / 1625 60 / 60 General: Alert, Oriented x3, Cooperative, No apparent distress HEENT: Atraumatic, EOMI, Normocephalic Oral: Moist Mucosa Neck: Supple, No JVD Lungs: Clear to auscultation, Normal air movement, No rhonchi, No wheeze, No rales Cardiovascular: Regular rate, Regular Rhythm, Normal S1, Normal S2, No murmurs Abdomen: Soft, Non-Distended, No Hepato-splenomegaly, non-tender Extremities: No edema, Capillary Refill Less than 3 Seconds Skin: No rashes, No breakdown, Incision - CDI Neurological: Neuro grossly intact, Sensory exam intact to light touch and pain Psych/Mental Status: Normal Affect, Appropriate Laboratory Results 09/18/18 06:20: Sodium 137, Potassium 5.0, Chloride 103, Carbon Dioxide 28.0, Anion Gap 6, BUN 26 H, Creatinine 1.33 H, Estim Creat Clear Calc 58.70, Est GFR (MDRD) Af Amer 70, Est GFR (MDRD) Non-Af 58 L, BUN/Creatinine Ratio 19.5, Glucose 136 H, Calcium 8.4 L, Phosphorus 3.2, Magnesium 2.2 Current Medications Dextrose (D50w Syringe) 0 gm IV X1 PRN; Protocol PRN Reason: Hypoglycemia Glucagon () 1 mg IM .X1 PRN PRN Reason: Hypoglycemia Heparin Sodium (Porcine) (Heparin Na) 5,000 unit SC Q8 [facility] Last Admin: 09/19/18 05:10 Dose: 5,000 unit Hydralazine HCl (Apresoline Iv) 5 mg IV Q4H PRN PRN PRN Reason: SBP > 160 Naloxone HCl 4 mg/ Dextrose 504 mls @ 0 mls/hr IV .Q0M PRN; Protocol PRN Reason: To maintain Resp. rate >10 Pantoprazole Sodium 40 mg/ (Sodium Chloride) 110 mls @ 330 mls/hr IV DAILY@1500 [facility] Last Admin: 09/18/18 15:21 Dose: 330 mls/hr Multivitamins 10 ml/ Chromium/Copper/Manganese/Seleni/Zn 1 ml/ Folic Acid 1 mg/ Amino Acids/Electrolytes 2,011.2 mls @ 84 mls/hr IV .[id number] [facility] Stop: 09/19/18 15:56 Last Admin: 09/18/18 16:08 Dose: 84 mls/hr Lorazepam (Ativan) 0.5 mg IV Q4H PRN PRN PRN Reason: RESTLESSNESS Last Admin: 09/19/18 02:32 Dose: 0.5 mg Magnesium Hydroxide (Milk Of Magnesia) 30 ml PO DAILY PRN PRN PRN Reason: Constipation Morphine Sulfate () 1 - 3 mg IV Q1H PRN PRN PRN Reason: SEVERE PAIN (6-10/10) Last Admin: 09/17/18 15:30 Dose: 2 mg Morphine Sulfate () 1 - 3 mg IV Q1H PRN PRN PRN Reason: SEVERE PAIN (6-10/10) Multi-Ingredient Ointment (Aquaphor) 1 applic TOPICAL PRN PRN; Protocol PRN Reason: ULCERATED NARES Ondansetron HCl (Zofran) 4 mg IV Q6H PRN PRN PRN Reason: NAUSEA/VOMITING Last Admin: 09/17/18 15:31 Dose: 4 mg Phenol/Menthol (Chloraseptic (Bkc)) 3 spray MM Q2H PRN PRN PRN Reason: SORE THROAT Last Admin: 09/13/18 13:06 Dose: 3 spray Prochlorperazine Edisylate (Compazine Iv) 5 mg IV Q4H PRN PRN PRN Reason: NAUSEA/VOMITING Last Admin: 09/17/18 11:54 Dose: 5 mg Sodium Chloride () 5 - 15 ml IV UD PRN PRN Reason: SALINE FLUSH Last Admin: 09/18/18 04:26 Dose: 10 ml Throat Lozenges (Cepacol Sore Throat Lozenge) 1 lozenge MUCOUS MEM Q1H PRN PRN PRN Reason: SORE THROAT Medical Necessity - Tobacco Use Smoking Status: Never smoker Assessment/Plan All Active Problems Partial small bowel obstruction (Acute) New onset atrial fibrillation (Resolved) Hypotension (Resolved) 1. SBO s/p ex-lap POD 11/Severe protein malnutrition - Morphine PRN - C/w with ambulation and gum chewing -Underwent PEG tube placement draining into Mosher bag -Okay for clears - C/w TPN and monitor accordingly -Now that his care is complicated by both TPN and a PEG tube with drainage, he would prefer to go to either residential facility or an LTAC I have discussed with him that he would have to be here through the weekend and that we may have difficulty in getting him placed at which point he would have to go home with home health though I do believe that he would be better served at a residential facility or LTAC. 2. Stage 4 colon cancer - Resected in 2016 and being treated with Keytruda which he is tolerating well -Discussed the Keytruda with his oncologist who states that he can receive an infusion on the day or day after discharge DVT: Heparin SC Code Visit Inpatient E&M: [id number] [facility] Hosp L2
[2018-09-19 08:20] VITALS: BP 111/61; PULSE 74; RESP 18; TEMP 36.1; O2SAT 97
[2018-09-19 09:06] VITALS: BP 111/61; PULSE 74; RESP 18; TEMP 36.1; O2SAT 97
[2018-09-19] MEDS: 0.9% NaCl Peripheral Flush Adult/Peds IV (15:54)
[2018-09-19 16:25] VITALS: BP 102/49; PULSE 84; RESP 18; TEMP 37.3; O2SAT 98
--- NOTE | 2018-09-19 17:15 | PCM.PN.SRG ---
Patient Problems: Active and Suspected Problems Partial small bowel obstruction (Acute) Subjective: Patient states that he has minimal abdominal pain, passing flatus, tolerating liquids - Physical Exam General: Alert, Oriented x3 Oral: Moist Mucosa Neck: Supple Abdomen: Bowel Sounds Present, Soft, - - wound is healing well - dry and intact, no evidence of infection Vital Signs Temp Pulse Resp BP Pulse Ox 99.2 F H 84 18 102/49 L 98 09/19/18 16:25 09/19/18 16:25 09/19/18 16:25 09/19/18 16:25 09/19/18 16:25 Oxygen Flow Rate (L/min) 2 Oxygen Delivery Method Room Air Weight: 73 kg Body Mass Index (BMI) 21.8 Intake and Output for Last 24 Hours 09/17/18 09/18/18 09/19/18 23:59 23:59 23:59 Intake Total 2786 / 2786 3050 / 3050 1850 / 1850 Output Total 800 / 800 1425 / 1425 2150 / 2150 Balance 1985 / 1985 1625 / 1625 -300 / -300 Medical Necessity - Tobacco Use Smoking Status: Never smoker Assessment/Plan All Active Problems Partial small bowel obstruction (Acute) New onset atrial fibrillation (Resolved) Hypotension (Resolved) Impression: POD#11 s/p laparotomy, small bowel resection, extensive lysis of adhesions PEG tube placed two days ago for persistent, chronic ileus Plan: Continue AMMON, continue present therapy patient awaiting placement for rehab unit
[2018-09-19 20:57] VITALS: BP 93/29; PULSE 85; RESP 14; TEMP 37.1; O2SAT 98
[2018-09-20 04:03] VITALS: BP 102/47; PULSE 81; RESP 14; TEMP 36.9; O2SAT 96
[2018-09-20] MEDS: Heparin Injection (Vial) 5,000 UNIT/ML VIAL 5000 UNIT SC ×3 (06:53→21:17)
[2018-09-20 11:20] VITALS: BP 114/62; PULSE 79; RESP 16; TEMP 36.9; O2SAT 98
--- NOTE | 2018-09-20 12:53 | PCM.PN.HOSP ---
Patient Problems: Active and Suspected Problems Partial small bowel obstruction (Acute) Subjective: Patient seen and examined. He has no complaints and feels well. He denies any fever, any chills, any cough or chest pain, shortness of breath or abdominal pain, diarrhea vomiting. He is on TPN. He is awaiting placement. Review of systems otherwise negative. Labs and vitals reviewed. Vitals/I&O's: Vital Signs Temp Pulse Resp BP Pulse Ox 98.5 F 79 16 114/62 98 09/20/18 11:20 09/20/18 11:20 09/20/18 11:20 09/20/18 11:20 09/20/18 11:20 Oxygen Flow Rate (L/min) 2 Oxygen Delivery Method Room Air Weight: 160 lb 14.999 oz Body Mass Index (BMI) 21.8 Intake and Output for Last 24 Hours 09/18/18 09/19/18 09/20/18 23:59 23:59 23:59 Intake Total 3050 / 3050 3270 / 3270 1097 / 1097 Output Total 1425 / 1425 3650 / 3650 600 / 600 Balance 1625 / 1625 -380 / -380 497 / 497 General: Alert, Oriented x3, Cooperative, No apparent distress HEENT: Atraumatic, PERRLA, EOMI, Normocephalic Oral: Moist Mucosa Neck: Supple, No JVD, Negative Carotid Bruits Lungs: Clear to auscultation, Normal air movement, No rhonchi, No wheeze, No rales Cardiovascular: Regular rate, Regular Rhythm, Normal S1, Normal S2, No murmurs Abdomen: Bowel Sounds Present, Soft, Non Tender, Non-Distended, No Hepato-splenomegaly, - - PEG tube in place, draining bilious fluid. Extremities: No clubbing, No cyanosis, No edema, Capillary Refill Less than 3 Seconds Skin: No rashes, No breakdown Musculoskeletal: No Tenderness to Palpation of Joints or Extremities Lymphatic: No Cervical, Supraclavicular, or Inguinal Adenopathy Neurological: Cranial nerves II-XII grossly intact, Neuro grossly intact, Motor Exam 5/5 strength throughout Psych/Mental Status: Normal Affect, Appropriate, Alert and oriented to time, place, person, mood and affect Current Medications Dextrose (D50w Syringe) 0 gm IV X1 PRN; Protocol PRN Reason: Hypoglycemia Glucagon () 1 mg IM .X1 PRN PRN Reason: Hypoglycemia Heparin Sodium (Porcine) (Heparin Na) 5,000 unit SC Q8 [facility] Last Admin: 09/20/18 06:53 Dose: 5,000 unit Hydralazine HCl (Apresoline Iv) 5 mg IV Q4H PRN PRN PRN Reason: SBP > 160 Naloxone HCl 4 mg/ Dextrose 504 mls @ 0 mls/hr IV .Q0M PRN; Protocol PRN Reason: To maintain Resp. rate >10 Pantoprazole Sodium 40 mg/ (Sodium Chloride) 110 mls @ 330 mls/hr IV DAILY@1500 [facility] Last Admin: 09/19/18 15:54 Dose: 330 mls/hr Multivitamins 10 ml/ Chromium/Copper/Manganese/Seleni/Zn 1 ml/ Folic Acid 1 mg/ Amino Acids/Electrolytes 2,011.2 mls @ 84 mls/hr IV .[id number] [facility] Stop: 09/20/18 15:56 Last Admin: 09/19/18 16:22 Dose: 84 mls/hr Multivitamins 10 ml/ Chromium/Copper/Manganese/Seleni/Zn 1 ml/ Folic Acid 1 mg/ Amino Acids/Electrolytes 2,011.2 mls @ 84 mls/hr IV .[id number] [facility] Stop: 09/21/18 15:56 Fat Emulsion Intravenous (Intralipid 20%) 250 mls @ 21 mls/hr IV .[id number] [facility] Stop: 09/21/18 03:54 Lorazepam (Ativan) 0.5 mg IV Q4H PRN PRN PRN Reason: RESTLESSNESS Last Admin: 09/19/18 21:07 Dose: 0.5 mg Magnesium Hydroxide (Milk Of Magnesia) 30 ml PO DAILY PRN PRN PRN Reason: Constipation Morphine Sulfate () 1 - 3 mg IV Q1H PRN PRN PRN Reason: SEVERE PAIN (6-10/10) Last Admin: 09/17/18 15:30 Dose: 2 mg Morphine Sulfate () 1 - 3 mg IV Q1H PRN PRN PRN Reason: SEVERE PAIN (6-10/10) Multi-Ingredient Ointment (Aquaphor) 1 applic TOPICAL PRN PRN; Protocol PRN Reason: ULCERATED NARES Ondansetron HCl (Zofran) 4 mg IV Q6H PRN PRN PRN Reason: NAUSEA/VOMITING Last Admin: 09/17/18 15:31 Dose: 4 mg Phenol/Menthol (Chloraseptic (Bkc)) 3 spray MM Q2H PRN PRN PRN Reason: SORE THROAT Last Admin: 09/13/18 13:06 Dose: 3 spray Prochlorperazine Edisylate (Compazine Iv) 5 mg IV Q4H PRN PRN PRN Reason: NAUSEA/VOMITING Last Admin: 09/17/18 11:54 Dose: 5 mg Sodium Chloride () 5 - 15 ml IV UD PRN PRN Reason: SALINE FLUSH Last Admin: 09/19/18 15:54 Dose: 10 ml Throat Lozenges (Cepacol Sore Throat Lozenge) 1 lozenge MUCOUS MEM Q1H PRN PRN PRN Reason: SORE THROAT Medical Necessity - Tobacco Use Smoking Status: Never smoker Assessment/Plan All Active Problems Partial small bowel obstruction (Acute) New onset atrial fibrillation (Resolved) Hypotension (Resolved) 1. Small bowel obstruction s/p exploratory laparotomy today is POD 12 has PEG tube in place; drained 1.150L over last 24 hours tolerating clear diet awaiting placement in LTAC/SNF on TPN 2. Stage 4 colon cancer s/o resection (2015) being treated with Keytruda; says his last dose is ~ 2 weeks overdue to call oncologist office to clarify if he can receive it whilst still in h ospital or otherwise 3. Severe protein energy malnutrition on TPN DVT prophylaxis: heparin GI prophylaxis: PPI Code Visit Inpatient E&M: [id number] [facility] Hosp L2
--- NOTE | 2018-09-20 12:58 | PN_ITS ---
Patient Problems: Active and Suspected Problems Partial small bowel obstruction (Acute) Subjective: Patient seen and examined. He has no complaints and feels well. He denies any fever, any chills, any cough or chest pain, shortness of breath or abdominal pain, diarrhea vomiting. He is on TPN. He is awaiting placement. Review of systems otherwise negative. Labs and vitals reviewed. Vitals/I&O's: Vital Signs Temp Pulse Resp BP Pulse Ox 98.5 F 79 16 114/62 98 09/20/18 11:20 09/20/18 11:20 09/20/18 11:20 09/20/18 11:20 09/20/18 11:20 Oxygen Flow Rate (L/min) 2 Oxygen Delivery Method Room Air Weight: 160 lb 14.999 oz Body Mass Index (BMI) 21.8 Intake and Output for Last 24 Hours 09/18/18 09/19/18 09/20/18 23:59 23:59 23:59 Intake Total 3050 / 3050 3270 / 3270 1097 / 1097 Output Total 1425 / 1425 3650 / 3650 600 / 600 Balance 1625 / 1625 -380 / -380 497 / 497 General: Alert, Oriented x3, Cooperative, No apparent distress HEENT: Atraumatic, PERRLA, EOMI, Normocephalic Oral: Moist Mucosa Neck: Supple, No JVD, Negative Carotid Bruits Lungs: Clear to auscultation, Normal air movement, No rhonchi, No wheeze, No rales Cardiovascular: Regular rate, Regular Rhythm, Normal S1, Normal S2, No murmurs Abdomen: Bowel Sounds Present, Soft, Non Tender, Non-Distended, No Hepato- splenomegaly, - - PEG tube in place, draining bilious fluid. Extremities: No clubbing, No cyanosis, No edema, Capillary Refill Less than 3 Seconds Skin: No rashes, No breakdown Musculoskeletal: No Tenderness to Palpation of Joints or Extremities Lymphatic: No Cervical, Supraclavicular, or Inguinal Adenopathy Neurological: Cranial nerves II-XII grossly intact, Neuro grossly intact, Motor Exam 5/5 strength throughout Psych/Mental Status: Normal Affect, Appropriate, Alert and oriented to time, place, person, mood and affect Current Medications Dextrose (D50w Syringe) 0 gm IV X1 PRN; Protocol PRN Reason: Hypoglycemia Glucagon () 1 mg IM .X1 PRN PRN Reason: Hypoglycemia Heparin Sodium (Porcine) (Heparin Na) 5,000 unit SC Q8 [facility] Last Admin: 09/20/18 06:53 Dose: 5,000 unit Hydralazine HCl (Apresoline Iv) 5 mg IV Q4H PRN PRN PRN Reason: SBP > 160 Naloxone HCl 4 mg/ Dextrose 504 mls @ 0 mls/hr IV .Q0M PRN; Protocol PRN Reason: To maintain Resp. rate >10 Pantoprazole Sodium 40 mg/ (Sodium Chloride) 110 mls @ 330 mls/hr IV DAILY@1500 [facility] Last Admin: 09/19/18 15:54 Dose: 330 mls/hr Multivitamins 10 ml/ Chromium/Copper/Manganese/Seleni/Zn 1 ml/ Folic Acid 1 mg/ Amino Acids/Electrolytes 2,011.2 mls @ 84 mls/hr IV .[id number] [facility] Stop: 09/20/18 15:56 Last Admin: 09/19/18 16:22 Dose: 84 mls/hr Multivitamins 10 ml/ Chromium/Copper/Manganese/Seleni/Zn 1 ml/ Folic Acid 1 mg/ Amino Acids/Electrolytes 2,011.2 mls @ 84 mls/hr IV .[id number] [facility] Stop: 09/21/18 15:56 Fat Emulsion Intravenous (Intralipid 20%) 250 mls @ 21 mls/hr IV .[id number] [facility] Stop: 09/21/18 03:54 Lorazepam (Ativan) 0.5 mg IV Q4H PRN PRN PRN Reason: RESTLESSNESS Last Admin: 09/19/18 21:07 Dose: 0.5 mg Magnesium Hydroxide (Milk Of Magnesia) 30 ml PO DAILY PRN PRN PRN Reason: Constipation Morphine Sulfate () 1 - 3 mg IV Q1H PRN PRN PRN Reason: SEVERE PAIN (6-10/10) Last Admin: 09/17/18 15:30 Dose: 2 mg Morphine Sulfate () 1 - 3 mg IV Q1H PRN PRN PRN Reason: SEVERE PAIN (6-10/10) Multi-Ingredient Ointment (Aquaphor) 1 applic TOPICAL PRN PRN; Protocol PRN Reason: ULCERATED NARES Ondansetron HCl (Zofran) 4 mg IV Q6H PRN PRN PRN Reason: NAUSEA/VOMITING Last Admin: 09/17/18 15:31 Dose: 4 mg Phenol/Menthol (Chloraseptic (Bkc)) 3 spray MM Q2H PRN PRN PRN Reason: SORE THROAT Last Admin: 09/13/18 13:06 Dose: 3 spray Prochlorperazine Edisylate (Compazine Iv) 5 mg IV Q4H PRN PRN PRN Reason: NAUSEA/VOMITING Last Admin: 09/17/18 11:54 Dose: 5 mg Sodium Chloride () 5 - 15 ml IV UD PRN PRN Reason: SALINE FLUSH Last Admin: 09/19/18 15:54 Dose: 10 ml Throat Lozenges (Cepacol Sore Throat Lozenge) 1 lozenge MUCOUS MEM Q1H PRN PRN PRN Reason: SORE THROAT Medical Necessity - Tobacco Use Smoking Status: Never smoker Assessment/Plan All Active Problems Partial small bowel obstruction (Acute) New onset atrial fibrillation (Resolved) Hypotension (Resolved) 1. Small bowel obstruction s/p exploratory laparotomy * today is POD 12 * has PEG tube in place; drained 1.150L over last 24 hours * tolerating clear diet * awaiting placement in LTAC/SNF * on TPN * 2. Stage 4 colon cancer s/o resection (2016) * being treated with Keytruda; says his last dose is ~ 2 weeks overdue * to call oncologist office to clarify if he can receive it whilst still in h ospital or otherwise * 3. Severe protein energy malnutrition * on TPN * DVT prophylaxis: heparin GI prophylaxis: PPI Code Visit Inpatient E&M: 06240 Subs Hosp L2
[2018-09-20] MEDS: Fat Emulsions 20% 250 ML IV (15:30)
--- NOTE | 2018-09-20 15:45 | CASEMGMT ---
Social Work Note SW received message from Desiree at [facility] stating she is unable to accept pt at this time. HERMILA updated RN LAINA Recinos who states she will send referral to LTACH to see if pt qualifies for LTACH. HALIMA Recinos updated this worker that pt would prefer to go to SNF in [place], [place]. HERMILA provided pt with list of in network SNF in [place], [place] ([facility] and [facility]). Pt is agreeable to this worker sending referrals to both SNF to determine if they are able to accept pt. HERMILA faxed referral to [facility]. Per Georgina she is able to accept and she will submit for pre-cert. Plan: [facility] pending pre-cert Adriane Oliva COMPUTER INFORMATION SYSTEMS INSTRUCTOR, HAULPAK DRIVER
--- NOTE | 2018-09-20 16:39 | PCM.PN.SRG ---
Patient Problems: Active and Suspected Problems Partial small bowel obstruction (Acute) Subjective: Had flatus this morning, some abdominal discomfort - Physical Exam General: Alert, Oriented x3 Neck: Supple Abdomen: Bowel Sounds Present, Soft Vital Signs Temp Pulse Resp BP Pulse Ox 98.5 F 79 16 114/62 98 09/20/18 11:20 09/20/18 11:20 09/20/18 11:20 09/20/18 11:20 09/20/18 11:20 Oxygen Flow Rate (L/min) 2 Oxygen Delivery Method Room Air Weight: 73 kg Body Mass Index (BMI) 21.8 Intake and Output for Last 24 Hours 09/18/18 09/19/18 09/20/18 23:59 23:59 23:59 Intake Total 3050 / 3050 3270 / 3270 1097 / 1097 Output Total 1425 / 1425 3650 / 3650 600 / 600 Balance 1625 / 1625 -380 / -380 497 / 497 Medical Necessity - Tobacco Use Smoking Status: Never smoker Assessment/Plan All Active Problems Partial small bowel obstruction (Acute) New onset atrial fibrillation (Resolved) Hypotension (Resolved) Impression: POD#12 s/p laparotomy, small bowel resection, extensive lysis of adhesions PEG tube placed three days ago for persistent, chronic ileus Plan: Continue AMMON, continue present therapy patient awaiting placement for rehab unit
[2018-09-20 17:20] VITALS: BP 110/63; PULSE 79; RESP 16; TEMP 36.9; O2SAT 98
[2018-09-20] MEDS: LORazepam 2 MG/ML Syringe 0.5 MG IV (21:21)
[2018-09-20 21:29] VITALS: BP 106/58; PULSE 75; RESP 18; TEMP 37.1; O2SAT 95
[2018-09-21] MEDS: LORazepam 2 MG/ML Syringe 0.5 MG IV ×2 (04:27→21:47)
[2018-09-21] MEDS: 0.9% NaCl Peripheral Flush Adult/Peds IV (04:31)
[2018-09-21] MEDS: Heparin Injection (Vial) 5,000 UNIT/ML VIAL 5000 UNIT SC ×3 (04:31→21:38)
[2018-09-21 04:36] VITALS: BP 105/60; PULSE 70; RESP 17; TEMP 36.4; O2SAT 97
[2018-09-21 07:08] LABS: Absolute Lymphocyte Count 1.12 X10^3/ul (0.83-4.51); Absolute Neutrophil Count 6.6 X10^3/uL (2.0-7.7); Basophil# 0.07 X10^3/uL; Basophil% 0.8 % (0-1); Eosinophil# 0.13 X10^3/uL; Eosinophils% 1.5 % (0-5); Hematocrit 42.6 % (40-54); Lymphocyte # 1.12 X10^3/ul (4.0); Lymphocyte % 12.8 % (19-41); Mean Corp Hgb Conc 32.9 g/gl (32-36); Mean Corpuscular Hgb 32.9 pg (27.0-32.0); Monocyte# 0.69 X10^3/uL; Monocyte% 7.9 % (0-10); Neutrophil # 6.63 X10^3/uL (2.7-7.7); Platelet Count 592 K/mm3 (150-450); RBC Distribution Width CV 11.8 % (11.6-14.6); RBC Distribution Width SD 42.1 fl (35.1-43.9); Red Blood Count 4.26 M/mm3 (4.6-6.2); White Blood Count 8.7 K/mm3 (4.4-11.0)
[2018-09-21 07:14] LABS: POSITIVE COUNT NO; POSITIVE DIFFERENTIAL NO; POSITIVE MORPHOLOGY NO
[2018-09-21 07:26] LABS: ALB/GLOB Ratio 0.6 RATIO (0.9-2.4); AST(SGOT) 11 U/L (15-37); Alanine Aminotransfer ALT/SGPT 22 U/L (16-61); Albumin, Serum 2.4 g/dL (3.2-5.0); Alkaline Phosphatase 194 U/L (45-117); Anion Gap 8 (5-15); BUN 26 mg/dL (7-18); BUN/Creat Ratio 17.2 RATIO (10-20); Calcium,Total 8.9 mg/dL (8.5-10.1); Chloride 103 mmol/L (98-107); Creatinine, Serum 1.51 mg/dL (0.70-1.30); EST Glomerular Filtration Rate 50 mL/min (>60); Est Glom Filt Rate - Afr Amer 60 mL/min (>60); Globulin 4.3 g/dL (2.2-4.2); Glucose 114 mg/dL (74-106); Magnesium 2.2 mg/dL (1.6-2.6); Potassium 5.2 mmol/L (3.5-5.1); Protein, Total 6.7 g/dL (6.4-8.2); Sodium Level 139 mmol/L (136-145); Triglycerides 95 mg/dL
[2018-09-21 10:17] VITALS: BP 101/60; PULSE 77; RESP 18; TEMP 37.3; O2SAT 93
--- NOTE | 2018-09-21 11:06 | PN_ITS ---
Patient Problems: Active and Suspected Problems Partial small bowel obstruction (Acute) Subjective: Patient seen and examined. He had no complaints and felt well. Output from his PEG tube has reduced. He denied any fever, any chills, any chest pain, any palpitations, any abdominal pain, any diarrhea or vomiting. Patient is con cerned that he has not received his Keytruda still. I counseled patient that we had spoken to oncology he would need to be discharged before he gets the Keytruda infusion. Patient is awaiting placement. Vitals/I&O's: Vital Signs Temp Pulse Resp BP Pulse Ox 99.1 F 77 18 101/60 93 09/21/18 10:17 09/21/18 10:17 09/21/18 10:17 09/21/18 10:17 09/21/18 10:17 Oxygen Flow Rate (L/min) 2 Oxygen Delivery Method Room Air Weight: 160 lb 14.999 oz Body Mass Index (BMI) 21.8 Intake and Output for Last 24 Hours 09/19/18 09/20/18 09/21/18 23:59 23:59 23:59 Intake Total 3270 / 3270 1989 / 1989 494 / 494 Output Total 3650 / 3650 2200 / 2200 650 / 650 Balance -380 / -380 -210 / -210 -156 / -156 General: Alert, Oriented x3, Cooperative, No apparent distress HEENT: Atraumatic, PERRLA, EOMI, Normocephalic Oral: Moist Mucosa Neck: Supple, No JVD, Negative Carotid Bruits Lungs: Clear to auscultation, Normal air movement, No rhonchi, No wheeze, No rales Cardiovascular: Regular rate, Regular Rhythm, Normal S1, Normal S2, No murmurs Abdomen: Bowel Sounds Present, Soft, Non Tender, Non-Distended, No Hepato- splenomegaly, - - PEG tube in place, draining bilious fluid. Extremities: No clubbing, No cyanosis, No edema, Capillary Refill Less than 3 Seconds Skin: No rashes, No breakdown Musculoskeletal: No Tenderness to Palpation of Joints or Extremities Lymphatic: No Cervical, Supraclavicular, or Inguinal Adenopathy Neurological: Cranial nerves II-XII grossly intact, Neuro grossly intact, Motor Exam 5/5 strength throughout Psych/Mental Status: Normal Affect, Appropriate, Alert and oriented to time, place, person, mood and affect Laboratory Results 09/21/18 06:55: WBC 8.7, RBC 4.26 L, Hgb 14.0, Hct 42.6, MCV 100.0 H, MCH 32.9 H , MCHC 32.9, RDW 11.8, RDW Differential 42.1, Plt Count 592 H, MPV 9.0, Immature Gran % (Auto) 1.000 H, Neut % (Auto) 76.0 H, Lymph % (Auto) 12.8 L, [place] % (Auto) 7.9, Eos % (Auto) 1.5, Baso % (Auto) 0.8, Absolute Neuts (auto) 6.6, Absolute Lymphs (auto) 1.12, Total Counted Not Reportable 09/21/18 06:55: Sodium 139, Potassium 5.2 H, Chloride 103, Carbon Dioxide 28.0, Anion Gap 8, BUN 26 H, Creatinine 1.51 H, Estim Creat Clear Calc 51.70, Est GFR (MDRD) Af Amer 60, Est GFR (MDRD) Non-Af 50 L, BUN/Creatinine Ratio 17.2, G lucose 114 H, Calcium 8.9, Magnesium 2.2, Total Bilirubin 0.40, AST 11 L, ALT 22, Alkaline Phosphatase 194 H, Total Protein 6.7, Albumin 2.4 L, Globulin 4.3 H , Albumin/Globulin Ratio 0.6 L, Triglycerides 95 Current Medications Dextrose (D50w Syringe) 0 gm IV X1 PRN; Protocol PRN Reason: Hypoglycemia Glucagon () 1 mg IM .X1 PRN PRN Reason: Hypoglycemia Heparin Sodium (Porcine) (Heparin Na) 5,000 unit SC Q8 [facility] Last Admin: 09/21/18 04:31 Dose: 5,000 unit Hydralazine HCl (Apresoline Iv) 5 mg IV Q4H PRN PRN PRN Reason: SBP > 160 Naloxone HCl 4 mg/ Dextrose 504 mls @ 0 mls/hr IV .Q0M PRN; Protocol PRN Reason: To maintain Resp. rate >10 Pantoprazole Sodium 40 mg/ (Sodium Chloride) 110 mls @ 330 mls/hr IV DAILY@1500 [facility] Last Admin: 09/20/18 15:30 Dose: 330 mls/hr Multivitamins 10 ml/ Chromium/Copper/Manganese/Seleni/Zn 1 ml/ Folic Acid 1 mg/ Amino Acids/Electrolytes 2,011.2 mls @ 84 mls/hr IV .[id number] [facility] Stop: 09/21/18 15:56 Last Admin: 09/20/18 15:38 Dose: 84 mls/hr Lorazepam (Ativan) 0.5 mg IV Q4H PRN PRN PRN Reason: RESTLESSNESS Last Admin: 09/21/18 04:27 Dose: 0.5 mg Magnesium Hydroxide (Milk Of Magnesia) 30 ml PO DAILY PRN PRN PRN Reason: Constipation Morphine Sulfate () 1 - 3 mg IV Q1H PRN PRN PRN Reason: SEVERE PAIN (6-10/10) Last Admin: 09/17/18 15:30 Dose: 2 mg Morphine Sulfate () 1 - 3 mg IV Q1H PRN PRN PRN Reason: SEVERE PAIN (6-10/10) Multi-Ingredient Ointment (Aquaphor) 1 applic TOPICAL PRN PRN; Protocol PRN Reason: ULCERATED NARES Ondansetron HCl (Zofran) 4 mg IV Q6H PRN PRN PRN Reason: NAUSEA/VOMITING Last Admin: 09/17/18 15:31 Dose: 4 mg Phenol/Menthol (Chloraseptic (Bkc)) 3 spray MM Q2H PRN PRN PRN Reason: SORE THROAT Last Admin: 09/13/18 13:06 Dose: 3 spray Prochlorperazine Edisylate (Compazine Iv) 5 mg IV Q4H PRN PRN PRN Reason: NAUSEA/VOMITING Last Admin: 09/17/18 11:54 Dose: 5 mg Sodium Chloride () 5 - 15 ml IV UD PRN PRN Reason: SALINE FLUSH Last Admin: 09/21/18 04:31 Dose: 10 ml Throat Lozenges (Cepacol Sore Throat Lozenge) 1 lozenge MUCOUS MEM Q1H PRN PRN PRN Reason: SORE THROAT Medical Necessity - Tobacco Use Smoking Status: Never smoker Assessment/Plan All Active Problems Partial small bowel obstruction (Acute) New onset atrial fibrillation (Resolved) Hypotension (Resolved) 1. Small bowel obstruction s/p exploratory laparotomy and adhesiolysis * today is POD 13 * has PEG tube in place; drained ~ 650 mls over last 24 hours. * tolerating clear diet * awaiting placement in SNF * on TPN * * 2. Stage 4 colon cancer s/o resection (2016) * being treated with Keytruda; says his last dose is ~ 2 weeks overdue * patient very concerned that he hasnt received his next Keytruda dose. Patient counseled that he would have to be discharged and go to his oncologist office for Keytruda to be administered * 3.Hyperkalemia: * Potassium is 5.2 today. Will give 15 g of Kayexalate and monitor as he is getting potassium in the TPN. * Potassium dose in TPN cannot be adjusted because the TPN comes in an already premixed bag. * marina give PO kayexalate 15gram once * 4. Severe protein energy malnutrition * on TPN * 5. Severe anxiety: on ativan prn. has refused to go on residential medication to help with anxiety DVT prophylaxis: heparin GI prophylaxis: PPI Code Visit Inpatient E&M: 86602 [facility] Hosp L3
[2018-09-21 16:06] VITALS: BP 107/56; PULSE 82; RESP 16; TEMP 36.4; O2SAT 97
[2018-09-21] MEDS: Sodium Polystyrene Sulfonate 15 GM/60 ML UDC PO (16:36)
[2018-09-21 21:32] VITALS: BP 103/55; PULSE 66; RESP 16; TEMP 36.7; O2SAT 94
[2018-09-22 03:03] VITALS: BP 108/60; PULSE 70; RESP 16; TEMP 36.6; O2SAT 96
[2018-09-22] MEDS: Heparin Injection (Vial) 5,000 UNIT/ML VIAL 5000 UNIT SC ×3 (06:08→22:10)
[2018-09-22 06:11] LABS: Absolute Lymphocyte Count 1.05 X10^3/ul (0.83-4.51); Absolute Neutrophil Count 6.1 X10^3/uL (2.0-7.7); Basophil% 1.2 % (0-1); Eosinophil# 0.11 X10^3/uL; Eosinophils% 1.3 % (0-5); Hematocrit 41.2 % (40-54); Hemoglobin 13.4 g/dl (13.0-16.5); Lymphocyte # 1.05 X10^3/ul (4.0); Lymphocyte % 12.6 % (19-41); Mean Corp Hgb Conc 32.5 g/gl (32-36); Mean Corpuscular Hgb 32.7 pg (27.0-32.0); Mean Corpuscular Volume 100.5 fL (80-94); Mean Platelet Vol. 8.8 fl (6.2-12.0); Monocyte# 0.87 X10^3/uL; Monocyte% 10.4 % (0-10); Neutrophil # 6.12 X10^3/uL (2.7-7.7); Neutrophil % 73.2 % (47-70); Platelet Count 538 K/mm3 (150-450); RBC Distribution Width CV 11.8 % (11.6-14.6); RBC Distribution Width SD 42.8 fl (35.1-43.9); White Blood Count 8.4 K/mm3 (4.4-11.0)
[2018-09-22 06:14] LABS: POSITIVE COUNT NO; POSITIVE DIFFERENTIAL NO; POSITIVE MORPHOLOGY NO
[2018-09-22 06:34] LABS: ALB/GLOB Ratio 0.6 RATIO (0.9-2.4); AST(SGOT) 14 U/L (15-37); Alanine Aminotransfer ALT/SGPT 19 U/L (16-61); Albumin, Serum 2.3 g/dL (3.2-5.0); Alkaline Phosphatase 171 U/L (45-117); Anion Gap 7 (5-15); BUN 27 mg/dL (7-18); BUN/Creat Ratio 17.2 RATIO (10-20); Calcium,Total 8.6 mg/dL (8.5-10.1); Chloride 104 mmol/L (98-107); Creatinine, Serum 1.57 mg/dL (0.70-1.30); EST Glomerular Filtration Rate 48 mL/min (>60); Est Glom Filt Rate - Afr Amer 58 mL/min (>60); Estimated Creatinine Clearance 49.73 ml/min; Globulin 3.8 g/dL (2.2-4.2); Glucose 130 mg/dL (74-106); Potassium 4.7 mmol/L (3.5-5.1); Protein, Total 6.1 g/dL (6.4-8.2); Sodium Level 139 mmol/L (136-145); Triglycerides 95 mg/dL
--- NOTE | 2018-09-22 08:00 | RAD_ITS ---
STUDY: X-RAY - ABDOMEN/PELVIS REASON FOR EXAM: Male, 62 years old. Small bowel obstruction. TECHNIQUE: AP supine and upright views of the abdomen and pelvis. COMPARISON: Radiographs of the abdomen and pelvis dated September 17, 2018. FINDINGS: Normal visualized lung bases. There is decreased dilatation of bowel since the previous study. There are numerous air fluid levels identified within the small bowel. There is some residual dilatation of small bowel with maximum transverse dimension of approximately 4 cm. There is no demonstrated free abdominal air. Surgical clips are visible in the right upper quadrant. Surgical clips are visible in the right lower quadrant. Surgical skin yelena are visible in the anterior central abdominal wall. A gastrostomy tube is visible in the left upper quadrant. There is no obvious organomegaly or mass. Normal soft tissue structures. There is mild curvature of the lumbar spine with convexity towards the right. There are multilevel degenerative changes of the lumbar spine. RAD/Abd Inc Decub and/or Erect IMPRESSION: Decreasing dilatation of small bowel since the previous study with findings still suggestive of residual obstruction Electronically Signed: Nissa Aden MD at 8:43 EST , Service support ,
[2018-09-22 09:05] VITALS: BP 100/52; PULSE 76; RESP 16; TEMP 34.3; O2SAT 100
--- NOTE | 2018-09-22 09:30 | CASEMGMT ---
Social Work Note SW faxed updated clinicals to Georgina at [facility]. Plan: [facility] pending pre-cert Adriane Oliva CELLAR PACKER, PROMOTOR [employer] TICKET SALES
--- NOTE | 2018-09-22 10:28 | PCM.PN.SRG ---
Patient Problems: Active and Suspected Problems Partial small bowel obstruction (Acute) Subjective: no nausea or vomiting, scant flatus - Physical Exam General: Alert, Oriented x3 Lungs: Clear to auscultation, Normal air movement Cardiovascular: Regular rate, No murmurs Abdomen: Soft, Non Tender, Hypoactive Bowel Sounds Vital Signs Temp Pulse Resp BP Pulse Ox 93.8 F L 76 16 100/52 L 100 09/22/18 09:05 09/22/18 09:05 09/22/18 09:05 09/22/18 09:05 09/22/18 09:05 Oxygen Flow Rate (L/min) 2 Oxygen Delivery Method Room Air Weight: 73 kg Body Mass Index (BMI) 21.8 Intake and Output for Last 24 Hours 09/20/18 09/21/18 09/22/18 23:59 23:59 23:59 Intake Total 1989 / 1989 1298 / 1298 927 / 927 Output Total 2200 / 2200 1650 / 1650 700 / 700 Balance -210 / -210 -352 / -352 227 / 227 Laboratory Tests Past 24 Hrs 09/22/18 09/22/18 05:58 05:58 WBC 8.4 RBC 4.10 L Hgb 13.4 Hct 41.2 MCV 100.5 H MCH 32.7 H MCHC 32.5 RDW 11.8 RDW Differential 42.8 Plt Count 538 H MPV 8.8 Immature Gran % (Auto) 1.300 H Neut % (Auto) 73.2 H Lymph % (Auto) 12.6 L [place] % (Auto) 10.4 H Eos % (Auto) 1.3 Baso % (Auto) 1.2 H Absolute Neuts (auto) 6.1 Absolute Lymphs (auto) 1.05 Total Counted Not Reportable Sodium 139 Potassium 4.7 Chloride 104 Carbon Dioxide 28.0 Anion Gap 7 BUN 27 H Creatinine 1.57 H Estim Creat Clear Calc 49.73 Est GFR (MDRD) Af Amer 58 L Est GFR (MDRD) Non-Af 48 L BUN/Creatinine Ratio 17.2 Glucose 130 H Calcium 8.6 Magnesium 2.0 Total Bilirubin 0.40 AST 14 L ALT 19 Alkaline Phosphatase 171 H Total Protein 6.1 L Albumin 2.3 L Globulin 3.8 Albumin/Globulin Ratio 0.6 L Triglycerides 95 Medical Necessity - Tobacco Use Smoking Status: Never smoker Assessment/Plan All Active Problems Partial small bowel obstruction (Acute) New onset atrial fibrillation (Resolved) Hypotension (Resolved) 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 Now with small bowel obstruction. noted improved with conservative management. Postoperatively #13 status post laparoscopic converted to exploratory laparotomy with very extensive lysis of adhesions-greater than 2 hours, repair of small bowel enterotomy and segmental small bowel resection due to stricture with compromised bowel noted at area of tightest band. final pathology demonstrates no recurrent malignancy. abdominal multiview this morning showed less small bowel gas and colonic gas. Will plan for intermittent clamping of the PEG tube to see if the patient will tolerate. Patient clinically deconditioned and considerable malnutrition. Even if tolerating liquids anticipate he will need SNF or LTAC placement for continued TPN and reconditioning. given his overall clinical status of protein wasting and failure for quick resolution - on TPN.
--- NOTE | 2018-09-22 13:00 | CASEMGMT ---
Social Work Note HERMILA received message from Georgina at [facility] stating pt was denied by insurance to go to [facility]. Georgina provided peer to peer number [phone]. HERMILA updated HALIMA Recinos of denial. Adriane Oliva YOUTH COORDINATOR, BILLING ASSOCIATE
--- NOTE | 2018-09-22 15:05 | PCM.PN.HOSP ---
Patient Problems: Active and Suspected Problems Partial small bowel obstruction (Acute) Subjective: Patient seen and examined. He has no complaints and feels well. He has no active complaints. Labs and vitals reviewed. Still on TPN. Insurance has refused presurgical assisted facility. Vitals/I&O's: Vital Signs Temp Pulse Resp BP Pulse Ox 93.8 F L 76 16 100/52 L 100 09/22/18 09:05 09/22/18 09:05 09/22/18 09:05 09/22/18 09:05 09/22/18 09:05 Oxygen Flow Rate (L/min) 2 Oxygen Delivery Method Room Air Weight: 160 lb 14.999 oz Body Mass Index (BMI) 21.8 Intake and Output for Last 24 Hours 09/20/18 09/21/18 09/22/18 23:59 23:59 23:59 Intake Total 1989 / 1989 1298 / 1298 927 / 927 Output Total 2200 / 2200 1650 / 1650 1590 / 1590 Balance -210 / -210 -352 / -352 -663 / -663 General: Alert, Oriented x3, Cooperative, No apparent distress HEENT: Atraumatic, PERRLA, EOMI, Normocephalic Oral: Moist Mucosa Neck: Supple, No JVD, Negative Carotid Bruits Lungs: Clear to auscultation, Normal air movement, No rhonchi, No wheeze, No rales Cardiovascular: Regular rate, Regular Rhythm, Normal S1, Normal S2, No murmurs Abdomen: Bowel Sounds Present, Soft, Non Tender, Non-Distended, No Hepato-splenomegaly, - - PEG tube in place, draining bilious fluid. Extremities: No clubbing, No cyanosis, No edema, Capillary Refill Less than 3 Seconds Skin: No rashes, No breakdown Musculoskeletal: No Tenderness to Palpation of Joints or Extremities Lymphatic: No Cervical, Supraclavicular, or Inguinal Adenopathy Neurological: Cranial nerves II-XII grossly intact, Neuro grossly intact, Motor Exam 5/5 strength throughout Psych/Mental Status: Normal Affect, Appropriate, Alert and oriented to time, place, person, mood and affect Laboratory Results 09/22/18 05:58: WBC 8.4, RBC 4.10 L, Hgb 13.4, Hct 41.2, MCV 100.5 H, MCH 32.7 H, MCHC 32.5, RDW 11.8, RDW Differential 42.8, Plt Count 538 H, MPV 8.8, Immature Gran % (Auto) 1.300 H, Neut % (Auto) 73.2 H, Lymph % (Auto) 12.6 L, [place] % (Auto) 10.4 H, Eos % (Auto) 1.3, Baso % (Auto) 1.2 H, Absolute Neuts (auto) 6.1, Absolute Lymphs (auto) 1.05, Total Counted Not Reportable 09/22/18 05:58: Sodium 139, Potassium 4.7, Chloride 104, Carbon Dioxide 28.0, Anion Gap 7, BUN 27 H, Creatinine 1.57 H, Estim Creat Clear Calc 49.73, Est GFR (MDRD) Af Amer 58 L, Est GFR (MDRD) Non-Af 48 L, BUN/Creatinine Ratio 17.2, Glucose 130 H, Calcium 8.6, Magnesium 2.0, Total Bilirubin 0.40, AST 14 L, ALT 19, Alkaline Phosphatase 171 H, Total Protein 6.1 L, Albumin 2.3 L, Globulin 3.8, Albumin/Globulin Ratio 0.6 L, Triglycerides 95 Current Medications Dextrose (D50w Syringe) 0 gm IV X1 PRN; Protocol PRN Reason: Hypoglycemia Glucagon () 1 mg IM .X1 PRN PRN Reason: Hypoglycemia Heparin Sodium (Porcine) (Heparin Na) 5,000 unit SC Q8 [facility] Last Admin: 09/22/18 13:38 Dose: 5,000 unit Hydralazine HCl (Apresoline Iv) 5 mg IV Q4H PRN PRN PRN Reason: SBP > 160 Naloxone HCl 4 mg/ Dextrose 504 mls @ 0 mls/hr IV .Q0M PRN; Protocol PRN Reason: To maintain Resp. rate >10 Pantoprazole Sodium 40 mg/ (Sodium Chloride) 110 mls @ 330 mls/hr IV DAILY@1500 [facility] Last Admin: 09/22/18 14:39 Dose: 330 mls/hr Multivitamins 5 ml/ Chromium/Copper/Manganese/Seleni/Zn 0.5 ml/ Folic Acid 0.5 mg/ Amino Acids 1,005.6 mls @ 84 mls/hr IV .[id number] [facility]; Protocol Stop: 09/22/18 15:56 Last Admin: 09/22/18 02:57 Dose: 84 mls/hr Multivitamins 5 ml/ Chromium/Copper/Manganese/Seleni/Zn 0.5 ml/ Folic Acid 0.5 mg/ Amino Acids 1,005.6 mls @ 84 mls/hr IV .[id number] [facility]; Protocol Stop: 09/23/18 15:56 Fat Emulsion Intravenous (Intralipid 20%) 250 mls @ 21 mls/hr IV .[id number] [facility] Stop: 09/23/18 03:54 Lorazepam (Ativan) 0.5 mg IV Q4H PRN PRN PRN Reason: RESTLESSNESS Last Admin: 09/21/18 21:47 Dose: 0.5 mg Magnesium Hydroxide (Milk Of Magnesia) 30 ml PO DAILY PRN PRN PRN Reason: Constipation Morphine Sulfate () 1 - 3 mg IV Q1H PRN PRN PRN Reason: SEVERE PAIN (6-10/10) Last Admin: 09/17/18 15:30 Dose: 2 mg Morphine Sulfate () 1 - 3 mg IV Q1H PRN PRN PRN Reason: SEVERE PAIN (6-10/10) Multi-Ingredient Ointment (Aquaphor) 1 applic TOPICAL PRN PRN; Protocol PRN Reason: ULCERATED NARES Ondansetron HCl (Zofran) 4 mg IV Q6H PRN PRN PRN Reason: NAUSEA/VOMITING Last Admin: 09/17/18 15:31 Dose: 4 mg Phenol/Menthol (Chloraseptic (Bkc)) 3 spray MM Q2H PRN PRN PRN Reason: SORE THROAT Last Admin: 09/13/18 13:06 Dose: 3 spray Prochlorperazine Edisylate (Compazine Iv) 5 mg IV Q4H PRN PRN PRN Reason: NAUSEA/VOMITING Last Admin: 09/17/18 11:54 Dose: 5 mg Sodium Chloride () 5 - 15 ml IV UD PRN PRN Reason: SALINE FLUSH Last Admin: 09/21/18 04:31 Dose: 10 ml Throat Lozenges (Cepacol Sore Throat Lozenge) 1 lozenge MUCOUS MEM Q1H PRN PRN PRN Reason: SORE THROAT Medical Necessity - Tobacco Use Smoking Status: Never smoker Assessment/Plan All Active Problems Partial small bowel obstruction (Acute) New onset atrial fibrillation (Resolved) Hypotension (Resolved) 1. Small bowel obstruction s/p exploratory laparotomy and adhesiolysis today is POD 13 abdominal xray today showed residual dilatation of small bowel since previous study, findings suggestive of residual obstruction tolerating clear diet awaiting placement in SNF on TPN 2. Stage 4 colon cancer s/o resection (2015) being treated with Keytruda; says his last dose is ~ 2 weeks overdue to have next dose once discharged and he follows up with his oncologist 3.Hyperkalemia: resolved. K is 4.7 today 4. Severe protein energy malnutrition on TPN 5. Severe anxiety: on ativan prn. has refused to go on terminal operations manager medication to help with anxiety DVT prophylaxis: heparin GI prophylaxis: PPI Disposition: awaiting placmenet Code Visit Inpatient E&M: 59982 Subs Hosp L2
[2018-09-22 15:09] VITALS: BP 101/50; PULSE 85; RESP 16; TEMP 37; O2SAT 99
--- NOTE | 2018-09-22 15:09 | PN_ITS ---
Patient Problems: Active and Suspected Problems Partial small bowel obstruction (Acute) Subjective: Patient seen and examined. He has no complaints and feels well. He has no active complaints. Labs and vitals reviewed. Still on TPN. Insurance has refused presurgical nursing home facility. Vitals/I&O's: Vital Signs Temp Pulse Resp BP Pulse Ox 93.8 F L 76 16 100/52 L 100 09/22/18 09:05 09/22/18 09:05 09/22/18 09:05 09/22/18 09:05 09/22/18 09:05 Oxygen Flow Rate (L/min) 2 Oxygen Delivery Method Room Air Weight: 160 lb 14.999 oz Body Mass Index (BMI) 21.8 Intake and Output for Last 24 Hours 09/20/18 09/21/18 09/22/18 23:59 23:59 23:59 Intake Total 1989 / 1989 1298 / 1298 927 / 927 Output Total 2200 / 2200 1650 / 1650 1590 / 1590 Balance -210 / -210 -352 / -352 -663 / -663 General: Alert, Oriented x3, Cooperative, No apparent distress HEENT: Atraumatic, PERRLA, EOMI, Normocephalic Oral: Moist Mucosa Neck: Supple, No JVD, Negative Carotid Bruits Lungs: Clear to auscultation, Normal air movement, No rhonchi, No wheeze, No rales Cardiovascular: Regular rate, Regular Rhythm, Normal S1, Normal S2, No murmurs Abdomen: Bowel Sounds Present, Soft, Non Tender, Non-Distended, No Hepato- splenomegaly, - - PEG tube in place, draining bilious fluid. Extremities: No clubbing, No cyanosis, No edema, Capillary Refill Less than 3 Seconds Skin: No rashes, No breakdown Musculoskeletal: No Tenderness to Palpation of Joints or Extremities Lymphatic: No Cervical, Supraclavicular, or Inguinal Adenopathy Neurological: Cranial nerves II-XII grossly intact, Neuro grossly intact, Motor Exam 5/5 strength throughout Psych/Mental Status: Normal Affect, Appropriate, Alert and oriented to time, place, person, mood and affect Laboratory Results 09/22/18 05:58: WBC 8.4, RBC 4.10 L, Hgb 13.4, Hct 41.2, MCV 100.5 H, MCH 32.7 H , MCHC 32.5, RDW 11.8, RDW Differential 42.8, Plt Count 538 H, MPV 8.8, Immature Gran % (Auto) 1.300 H, Neut % (Auto) 73.2 H, Lymph % (Auto) 12.6 L, [place] % (Auto) 10.4 H, Eos % (Auto) 1.3, Baso % (Auto) 1.2 H, Absolute Neuts (auto) 6.1, Absolute Lymphs (auto) 1.05, Total Counted Not Reportable 09/22/18 05:58: Sodium 139, Potassium 4.7, Chloride 104, Carbon Dioxide 28.0, Anion Gap 7, BUN 27 H, Creatinine 1.57 H, Estim Creat Clear Calc 49.73, Est GFR (MDRD) Af Amer 58 L, Est GFR (MDRD) Non-Af 48 L, BUN/Creatinine Ratio 17.2, Glucose 130 H, Calcium 8.6, Magnesium 2.0, Total Bilirubin 0.40, AST 14 L, ALT 19, Alkaline Phosphatase 171 H, Total Protein 6.1 L, Albumin 2.3 L, Globulin 3.8, Albumin/Globulin Ratio 0.6 L, Triglycerides 95 Current Medications Dextrose (D50w Syringe) 0 gm IV X1 PRN; Protocol PRN Reason: Hypoglycemia Glucagon () 1 mg IM .X1 PRN PRN Reason: Hypoglycemia Heparin Sodium (Porcine) (Heparin Na) 5,000 unit SC Q8 [facility] Last Admin: 09/22/18 13:38 Dose: 5,000 unit Hydralazine HCl (Apresoline Iv) 5 mg IV Q4H PRN PRN PRN Reason: SBP > 160 Naloxone HCl 4 mg/ Dextrose 504 mls @ 0 mls/hr IV .Q0M PRN; Protocol PRN Reason: To maintain Resp. rate >10 Pantoprazole Sodium 40 mg/ (Sodium Chloride) 110 mls @ 330 mls/hr IV DAILY@1500 [facility] Last Admin: 09/22/18 14:39 Dose: 330 mls/hr Multivitamins 5 ml/ Chromium/Copper/Manganese/Seleni/Zn 0.5 ml/ Folic Acid 0.5 mg/ Amino Acids 1,005.6 mls @ 84 mls/hr IV .[id number] [facility]; Protocol Stop: 09/22/18 15:56 Last Admin: 09/22/18 02:57 Dose: 84 mls/hr Multivitamins 5 ml/ Chromium/Copper/Manganese/Seleni/Zn 0.5 ml/ Folic Acid 0.5 mg/ Amino Acids 1,005.6 mls @ 84 mls/hr IV .[id number] [facility]; Protocol Stop: 09/23/18 15:56 Fat Emulsion Intravenous (Intralipid 20%) 250 mls @ 21 mls/hr IV .[id number] [facility] Stop: 09/23/18 03:54 Lorazepam (Ativan) 0.5 mg IV Q4H PRN PRN PRN Reason: RESTLESSNESS Last Admin: 09/21/18 21:47 Dose: 0.5 mg Magnesium Hydroxide (Milk Of Magnesia) 30 ml PO DAILY PRN PRN PRN Reason: Constipation Morphine Sulfate () 1 - 3 mg IV Q1H PRN PRN PRN Reason: SEVERE PAIN (6-10/10) Last Admin: 09/17/18 15:30 Dose: 2 mg Morphine Sulfate () 1 - 3 mg IV Q1H PRN PRN PRN Reason: SEVERE PAIN (6-10/10) Multi-Ingredient Ointment (Aquaphor) 1 applic TOPICAL PRN PRN; Protocol PRN Reason: ULCERATED NARES Ondansetron HCl (Zofran) 4 mg IV Q6H PRN PRN PRN Reason: NAUSEA/VOMITING Last Admin: 09/17/18 15:31 Dose: 4 mg Phenol/Menthol (Chloraseptic (Bkc)) 3 spray MM Q2H PRN PRN PRN Reason: SORE THROAT Last Admin: 09/13/18 13:06 Dose: 3 spray Prochlorperazine Edisylate (Compazine Iv) 5 mg IV Q4H PRN PRN PRN Reason: NAUSEA/VOMITING Last Admin: 09/17/18 11:54 Dose: 5 mg Sodium Chloride () 5 - 15 ml IV UD PRN PRN Reason: SALINE FLUSH Last Admin: 09/21/18 04:31 Dose: 10 ml Throat Lozenges (Cepacol Sore Throat Lozenge) 1 lozenge MUCOUS MEM Q1H PRN PRN PRN Reason: SORE THROAT Medical Necessity - Tobacco Use Smoking Status: Never smoker Assessment/Plan All Active Problems Partial small bowel obstruction (Acute) New onset atrial fibrillation (Resolved) Hypotension (Resolved) 1. Small bowel obstruction s/p exploratory laparotomy and adhesiolysis * today is POD 13 * abdominal xray today showed residual dilatation of small bowel since previous study, findings suggestive of residual obstruction * tolerating clear diet * awaiting placement in SNF * on TPN * * 2. Stage 4 colon cancer s/o resection (2015) * being treated with Keytruda; says his last dose is ~ 2 weeks overdue * to have next dose once discharged and he follows up with his oncologist * * 3.Hyperkalemia: resolved. K is 4.7 today * 4. Severe protein energy malnutrition * on TPN * 5. Severe anxiety: on ativan prn. has refused to go on extermination supervisor medication to help with anxiety DVT prophylaxis: heparin GI prophylaxis: PPI Disposition: awaiting placmenet Code Visit Inpatient E&M: 05360 Subs Hosp L2
[2018-09-22] MEDS: Fat Emulsions 20% 250 ML IV (15:53)
--- NOTE | 2018-09-22 16:33 | CASEMGMT ---
HALIMA MARINA received update from that precert was denied for patient to go to SNF. HALIMA MARINA updated [facility] regarding previous referral. [facility] ran financials and home TPN would cost patient $460 per day till $2500 deductible met then $93 per day till $6500 out of pocket expense updated. HALIMA MARINA updated Dr. Santamaria regarding insurance denial and asked if Dr. Santamaria would be willing to complete peer to peer with insurance. Dr. Santamaria agreeable to peer to peer and number given. Dr. Santamaria updated regarding home cost for TPN. HALIMA MARINA will continue to monitor patient and plan for safe discharge.
--- NOTE | 2018-09-22 17:06 | CASEMGMT ---
Social Work Note SW placed a call to Georgina at [facility] and updated her that physician is doing peer to peer for pt. Plan: [facility] pending peer to peer Adriane Oliva POWER [employer]KE [employer]DER, [employer]
[2018-09-22 22:00] VITALS: BP 99/47; PULSE 75; RESP 16; TEMP 36.6; O2SAT 98
[2018-09-22] MEDS: 0.9% NaCl Peripheral Flush Adult/Peds IV (22:16)
[2018-09-22] MEDS: LORazepam 2 MG/ML Syringe 0.5 MG IV (22:16)
[2018-09-22 22:45] LABS: Bedside Glucose 124 mg/dL (70-110)
[2018-09-23 03:52] VITALS: BP 98/58; PULSE 79; RESP 16; TEMP 36.6; O2SAT 95
[2018-09-23 04:26] LABS: Bedside Glucose 137 mg/dL (70-110)
[2018-09-23] MEDS: Heparin Injection (Vial) 5,000 UNIT/ML VIAL 5000 UNIT SC ×3 (05:47→21:34)
[2018-09-23 06:18] LABS: Absolute Lymphocyte Count 1.05 X10^3/ul (0.83-4.51); Absolute Neutrophil Count 5.8 X10^3/uL (2.0-7.7); Basophil# 0.09 X10^3/uL; Basophil% 1.1 % (0-1); Eosinophil# 0.11 X10^3/uL; Eosinophils% 1.4 % (0-5); Hematocrit 39.9 % (40-54); Lymphocyte # 1.05 X10^3/ul (4.0); Lymphocyte % 13.1 % (19-41); Mean Corp Hgb Conc 32.6 g/gl (32-36); Mean Corpuscular Hgb 32.7 pg (27.0-32.0); Mean Corpuscular Volume 100.5 fL (80-94); Mean Platelet Vol. 9.1 fl (6.2-12.0); Monocyte# 0.92 X10^3/uL; Monocyte% 11.5 % (0-10); Neutrophil # 5.75 X10^3/uL (2.7-7.7); Neutrophil % 71.9 % (47-70); Platelet Count 509 K/mm3 (150-450); RBC Distribution Width CV 11.8 % (11.6-14.6); RBC Distribution Width SD 42.6 fl (35.1-43.9); Red Blood Count 3.97 M/mm3 (4.6-6.2)
[2018-09-23 06:21] LABS: POSITIVE COUNT NO; POSITIVE DIFFERENTIAL NO; POSITIVE MORPHOLOGY NO
[2018-09-23 06:36] LABS: ALB/GLOB Ratio 0.6 RATIO (0.9-2.4); AST(SGOT) 12 U/L (15-37); Alanine Aminotransfer ALT/SGPT 21 U/L (16-61); Albumin, Serum 2.3 g/dL (3.2-5.0); Alkaline Phosphatase 168 U/L (45-117); Anion Gap 9 (5-15); BUN 25 mg/dL (7-18); BUN/Creat Ratio 17.4 RATIO (10-20); Calcium,Total 8.6 mg/dL (8.5-10.1); Chloride 104 mmol/L (98-107); Creatinine, Serum 1.44 mg/dL (0.70-1.30); EST Glomerular Filtration Rate 53 mL/min (>60); Est Glom Filt Rate - Afr Amer 64 mL/min (>60); Estimated Creatinine Clearance 54.21 ml/min; Glucose 130 mg/dL (74-106); Magnesium 1.9 mg/dL (1.6-2.6); Protein, Total 6.3 g/dL (6.4-8.2); Sodium Level 138 mmol/L (136-145); Triglycerides 93 mg/dL
[2018-09-23 09:52] VITALS: BP 97/61; PULSE 77; RESP 16; TEMP 36.6; O2SAT 99
--- NOTE | 2018-09-23 12:43 | PCM.PN.HOSP ---
Patient Problems: Active and Suspected Problems Partial small bowel obstruction (Acute) Subjective: Patient has no complaints and feels well. He is anxious about when he will be able to leave. 12 point review of systems otherwise negative. I informed patient that insurance refuses preset for long term in LTAC. Dr. Marx to do [id number] with insurance today. Labs and vitals reviewed. Vitals/I&O's: Vital Signs Temp Pulse Resp BP Pulse Ox 97.9 F 77 16 97/61 99 09/23/18 09:52 09/23/18 09:52 09/23/18 09:52 09/23/18 09:52 09/23/18 09:52 Oxygen Flow Rate (L/min) 2 Oxygen Delivery Method Room Air Weight: 160 lb 14.999 oz Body Mass Index (BMI) 21.8 Intake and Output for Last 24 Hours 09/21/18 09/22/18 09/23/18 23:59 23:59 23:59 Intake Total 1298 / 1298 1178 / 1178 1179 / 1179 Output Total 1650 / 1650 2160 / 2160 640 / 640 Balance -352 / -352 -982 / -982 539 / 539 General: Alert, Oriented x3, Cooperative, No apparent distress HEENT: Atraumatic, PERRLA, EOMI, Normocephalic Oral: Moist Mucosa Neck: Supple, No JVD, Negative Carotid Bruits Lungs: Clear to auscultation, Normal air movement, No rhonchi, No wheeze, No rales Cardiovascular: Regular rate, Regular Rhythm, Normal S1, Normal S2, No murmurs Abdomen: Bowel Sounds Present, Soft, Non Tender, Non-Distended, No Hepato-splenomegaly, - - PEG tube in place, draining bilious fluid. Extremities: No clubbing, No cyanosis, No edema, Capillary Refill Less than 3 Seconds Skin: No rashes, No breakdown Musculoskeletal: No Tenderness to Palpation of Joints or Extremities Lymphatic: No Cervical, Supraclavicular, or Inguinal Adenopathy Neurological: Cranial nerves II-XII grossly intact, Neuro grossly intact, Motor Exam 5/5 strength throughout Psych/Mental Status: Normal Affect, Appropriate, Alert and oriented to time, place, person, mood and affect Laboratory Results 09/22/18 22:10: POC Glucose 124 H 09/23/18 03:54: POC Glucose 137 H 09/23/18 05:48: WBC 8.0, RBC 3.97 L, Hgb 13.0, Hct 39.9 L, MCV 100.5 H, MCH 32.7 H, MCHC 32.6, RDW 11.8, RDW Differential 42.6, Plt Count 509 H, MPV 9.1, Immature Gran % (Auto) 1.000 H, Neut % (Auto) 71.9 H, Lymph % (Auto) 13.1 L, [place] % (Auto) 11.5 H, Eos % (Auto) 1.4, Baso % (Auto) 1.1 H, Absolute Neuts (auto) 5.8, Absolute Lymphs (auto) 1.05, Total Counted Not Reportable 09/23/18 05:48: Sodium 138, Potassium 4.0, Chloride 104, Carbon Dioxide 25.0, Anion Gap 9, BUN 25 H, Creatinine 1.44 H, Estim Creat Clear Calc 54.21, Est GFR (MDRD) Af Amer 64, Est GFR (MDRD) Non-Af 53 L, BUN/Creatinine Ratio 17.4, Glucose 130 H, Calcium 8.6, Magnesium 1.9, Total Bilirubin 0.30, AST 12 L, ALT 21, Alkaline Phosphatase 168 H, Total Protein 6.3 L, Albumin 2.3 L, Globulin 4.0, Albumin/Globulin Ratio 0.6 L, Triglycerides 93 Current Medications Dextrose (D50w Syringe) 0 gm IV X1 PRN; Protocol PRN Reason: Hypoglycemia Glucagon () 1 mg IM .X1 PRN PRN Reason: Hypoglycemia Heparin Sodium (Porcine) (Heparin Na) 5,000 unit SC Q8 [facility] Last Admin: 09/23/18 05:47 Dose: 5,000 unit Hydralazine HCl (Apresoline Iv) 5 mg IV Q4H PRN PRN PRN Reason: SBP > 160 Naloxone HCl 4 mg/ Dextrose 504 mls @ 0 mls/hr IV .Q0M PRN; Protocol PRN Reason: To maintain Resp. rate >10 Pantoprazole Sodium 40 mg/ (Sodium Chloride) 110 mls @ 330 mls/hr IV DAILY@1500 [facility] Last Admin: 09/22/18 14:39 Dose: 330 mls/hr Multivitamins 5 ml/ Chromium/Copper/Manganese/Seleni/Zn 0.5 ml/ Folic Acid 0.5 mg/ Amino Acids 1,005.6 mls @ 84 mls/hr IV .[id number] [facility]; Protocol Stop: 09/23/18 15:56 Last Admin: 09/23/18 04:17 Dose: 84 mls/hr Multivitamins 5 ml/ Chromium/Copper/Manganese/Seleni/Zn 0.5 ml/ Folic Acid 0.5 mg/ Amino Acids 1,005.6 mls @ 84 mls/hr IV .[id number] [facility]; Protocol Stop: 09/24/18 15:56 Lorazepam (Ativan) 0.5 mg IV Q4H PRN PRN PRN Reason: RESTLESSNESS Last Admin: 09/22/18 22:16 Dose: 0.5 mg Magnesium Hydroxide (Milk Of Magnesia) 30 ml PO DAILY PRN PRN PRN Reason: Constipation Morphine Sulfate () 1 - 3 mg IV Q1H PRN PRN PRN Reason: SEVERE PAIN (6-10/10) Last Admin: 09/17/18 15:30 Dose: 2 mg Morphine Sulfate () 1 - 3 mg IV Q1H PRN PRN PRN Reason: SEVERE PAIN (6-10/10) Multi-Ingredient Ointment (Aquaphor) 1 applic TOPICAL PRN PRN; Protocol PRN Reason: ULCERATED NARES Nutritional Formula (Lactose Free) (Ensure Clear) 120 ml PO 4X/DAY [facility] Ondansetron HCl (Zofran) 4 mg IV Q6H PRN PRN PRN Reason: NAUSEA/VOMITING Last Admin: 09/17/18 15:31 Dose: 4 mg Phenol/Menthol (Chloraseptic (Bkc)) 3 spray MM Q2H PRN PRN PRN Reason: SORE THROAT Last Admin: 09/13/18 13:06 Dose: 3 spray Prochlorperazine Edisylate (Compazine Iv) 5 mg IV Q4H PRN PRN PRN Reason: NAUSEA/VOMITING Last Admin: 09/17/18 11:54 Dose: 5 mg Sodium Chloride () 5 - 15 ml IV UD PRN PRN Reason: SALINE FLUSH Last Admin: 09/22/18 22:16 Dose: 10 ml Throat Lozenges (Cepacol Sore Throat Lozenge) 1 lozenge MUCOUS MEM Q1H PRN PRN PRN Reason: SORE THROAT Medical Necessity - Tobacco Use Smoking Status: Never smoker Assessment/Plan All Active Problems Partial small bowel obstruction (Acute) New onset atrial fibrillation (Resolved) Hypotension (Resolved) 1. Small bowel obstruction s/p exploratory laparotomy and adhesiolysis today is POD 14 tolerating clear diet awaiting placement in SNF on TPN 2. Stage 4 colon cancer s/o resection (2015) being treated with Keytruda; says his last dose is overdue to have next dose once discharged and he follows up with his oncologist 3.Hyperkalemia: resolved. K is 4 today 4. Severe protein energy malnutrition on TPN 5. Severe anxiety: on ativan prn. DVT prophylaxis: heparin GI prophylaxis: PPI Disposition: awaiting placement. Insurance refused precert for SNF or LTAC. Dr. Marx to do peer to peer with insurance today. Code Visit Inpatient E&M: 62023 Subs Hosp L2
--- NOTE | 2018-09-23 12:48 | PN_ITS ---
Patient Problems: Active and Suspected Problems Partial small bowel obstruction (Acute) Subjective: Patient has no complaints and feels well. He is anxious about when he will be able to leave. 12 point review of systems otherwise negative. I informed patient that insurance refuses preset for [facility] in [facility]. Dr. Marx to do [id number] with insurance today. Labs and vitals reviewed. Vitals/I&O's: Vital Signs Temp Pulse Resp BP Pulse Ox 97.9 F 77 16 97/61 99 09/23/18 09:52 09/23/18 09:52 09/23/18 09:52 09/23/18 09:52 09/23/18 09:52 Oxygen Flow Rate (L/min) 2 Oxygen Delivery Method Room Air Weight: 160 lb 14.999 oz Body Mass Index (BMI) 21.8 Intake and Output for Last 24 Hours 09/21/18 09/22/18 09/23/18 23:59 23:59 23:59 Intake Total 1298 / 1298 1178 / 1178 1179 / 1179 Output Total 1650 / 1650 2160 / 2160 640 / 640 Balance -352 / -352 -982 / -982 539 / 539 General: Alert, Oriented x3, Cooperative, No apparent distress HEENT: Atraumatic, PERRLA, EOMI, Normocephalic Oral: Moist Mucosa Neck: Supple, No JVD, Negative Carotid Bruits Lungs: Clear to auscultation, Normal air movement, No rhonchi, No wheeze, No rales Cardiovascular: Regular rate, Regular Rhythm, Normal S1, Normal S2, No murmurs Abdomen: Bowel Sounds Present, Soft, Non Tender, Non-Distended, No Hepato- splenomegaly, - - PEG tube in place, draining bilious fluid. Extremities: No clubbing, No cyanosis, No edema, Capillary Refill Less than 3 Seconds Skin: No rashes, No breakdown Musculoskeletal: No Tenderness to Palpation of Joints or Extremities Lymphatic: No Cervical, Supraclavicular, or Inguinal Adenopathy Neurological: Cranial nerves II-XII grossly intact, Neuro grossly intact, Motor Exam 5/5 strength throughout Psych/Mental Status: Normal Affect, Appropriate, Alert and oriented to time, place, person, mood and affect Laboratory Results 09/22/18 22:10: POC Glucose 124 H 09/23/18 03:54: POC Glucose 137 H 09/23/18 05:48: WBC 8.0, RBC 3.97 L, Hgb 13.0, Hct 39.9 L, MCV 100.5 H, MCH 32.7 H, MCHC 32.6, RDW 11.8, RDW Differential 42.6, Plt Count 509 H, MPV 9.1, Immature Gran % (Auto) 1.000 H, Neut % (Auto) 71.9 H, Lymph % (Auto) 13.1 L, [place] % (Auto) 11.5 H, Eos % (Auto) 1.4, Baso % (Auto) 1.1 H, Absolute Neuts (auto) 5.8, Absolute Lymphs (auto) 1.05, Total Counted Not Reportable 09/23/18 05:48: Sodium 138, Potassium 4.0, Chloride 104, Carbon Dioxide 25.0, Anion Gap 9, BUN 25 H, Creatinine 1.44 H, Estim Creat Clear Calc 54.21, Est GFR (MDRD) Af Amer 64, Est GFR (MDRD) Non-Af 53 L, BUN/Creatinine Ratio 17.4, Glucose 130 H, Calcium 8.6, Magnesium 1.9, Total Bilirubin 0.30, AST 12 L, ALT 21, Alkaline Phosphatase 168 H, Total Protein 6.3 L, Albumin 2.3 L, Globulin 4.0, Albumin/Globulin Ratio 0.6 L, Triglycerides 93 Current Medications Dextrose (D50w Syringe) 0 gm IV X1 PRN; Protocol PRN Reason: Hypoglycemia Glucagon () 1 mg IM .X1 PRN PRN Reason: Hypoglycemia Heparin Sodium (Porcine) (Heparin Na) 5,000 unit SC Q8 [facility] Last Admin: 09/23/18 05:47 Dose: 5,000 unit Hydralazine HCl (Apresoline Iv) 5 mg IV Q4H PRN PRN PRN Reason: SBP > 160 Naloxone HCl 4 mg/ Dextrose 504 mls @ 0 mls/hr IV .Q0M PRN; Protocol PRN Reason: To maintain Resp. rate >10 Pantoprazole Sodium 40 mg/ (Sodium Chloride) 110 mls @ 330 mls/hr IV DAILY@1500 [facility] Last Admin: 09/22/18 14:39 Dose: 330 mls/hr Multivitamins 5 ml/ Chromium/Copper/Manganese/Seleni/Zn 0.5 ml/ Folic Acid 0.5 mg/ Amino Acids 1,005.6 mls @ 84 mls/hr IV .[id number] [facility]; Protocol Stop: 09/23/18 15:56 Last Admin: 09/23/18 04:17 Dose: 84 mls/hr Multivitamins 5 ml/ Chromium/Copper/Manganese/Seleni/Zn 0.5 ml/ Folic Acid 0.5 mg/ Amino Acids 1,005.6 mls @ 84 mls/hr IV .[id number] [facility]; Protocol Stop: 09/24/18 15:56 Lorazepam (Ativan) 0.5 mg IV Q4H PRN PRN PRN Reason: RESTLESSNESS Last Admin: 09/22/18 22:16 Dose: 0.5 mg Magnesium Hydroxide (Milk Of Magnesia) 30 ml PO DAILY PRN PRN PRN Reason: Constipation Morphine Sulfate () 1 - 3 mg IV Q1H PRN PRN PRN Reason: SEVERE PAIN (6-10/10) Last Admin: 09/17/18 15:30 Dose: 2 mg Morphine Sulfate () 1 - 3 mg IV Q1H PRN PRN PRN Reason: SEVERE PAIN (6-10/10) Multi-Ingredient Ointment (Aquaphor) 1 applic TOPICAL PRN PRN; Protocol PRN Reason: ULCERATED NARES Nutritional Formula (Lactose Free) (Ensure Clear) 120 ml PO 4X/DAY [facility] Ondansetron HCl (Zofran) 4 mg IV Q6H PRN PRN PRN Reason: NAUSEA/VOMITING Last Admin: 09/17/18 15:31 Dose: 4 mg Phenol/Menthol (Chloraseptic (Bkc)) 3 spray MM Q2H PRN PRN PRN Reason: SORE THROAT Last Admin: 09/13/18 13:06 Dose: 3 spray Prochlorperazine Edisylate (Compazine Iv) 5 mg IV Q4H PRN PRN PRN Reason: NAUSEA/VOMITING Last Admin: 09/17/18 11:54 Dose: 5 mg Sodium Chloride () 5 - 15 ml IV UD PRN PRN Reason: SALINE FLUSH Last Admin: 09/22/18 22:16 Dose: 10 ml Throat Lozenges (Cepacol Sore Throat Lozenge) 1 lozenge MUCOUS MEM Q1H PRN PRN PRN Reason: SORE THROAT Medical Necessity - Tobacco Use Smoking Status: Never smoker Assessment/Plan All Active Problems Partial small bowel obstruction (Acute) New onset atrial fibrillation (Resolved) Hypotension (Resolved) 1. Small bowel obstruction s/p exploratory laparotomy and adhesiolysis * today is POD 14 * tolerating clear diet * awaiting placement in SNF * on TPN * * 2. Stage 4 colon cancer s/o resection (2015) * being treated with Keytruda; says his last dose is overdue * to have next dose once discharged and he follows up with his oncologist * * 3.Hyperkalemia: resolved. K is 4 today * 4. Severe protein energy malnutrition * on TPN * 5. Severe anxiety: on ativan prn. DVT prophylaxis: heparin GI prophylaxis: PPI Disposition: awaiting placement. Insurance refused precert for SNF or LTAC. Dr. Marx to do peer to peer with insurance today. Code Visit Inpatient E&M: 68743 Subs Hosp L2
[2018-09-23 16:00] VITALS: BP 101/55; PULSE 75; RESP 16; TEMP 36.7; O2SAT 99
--- NOTE | 2018-09-23 16:53 | CASEMGMT ---
Social Work Note Per Dr. Santamaria he is scheduled to complete peer to peer with MMO tomorrow at 3:30pm. updated Georgina at [facility] of this. Plan: [facility] pending peer to peer Adriane Oliva PROP SAWYER, ACUTE CARE ASSISTANT
--- NOTE | 2018-09-23 18:11 | PN.SURG_ITS ---
Patient Problems: Active and Suspected Problems Partial small bowel obstruction (Acute) Subjective: patient tolerated clamping NG tube but had some nausea last night and does not drink much in the way of liquids - Physical Exam General: Alert, Oriented x3, Cooperative Lungs: Clear to auscultation, Normal air movement Cardiovascular: Regular rate, Regular Rhythm Abdomen: Soft, Non Tender, Hypoactive Bowel Sounds Vital Signs Temp Pulse Resp BP Pulse Ox 98.1 F 75 16 101/55 L 99 09/23/18 16:00 09/23/18 16:00 09/23/18 16:00 09/23/18 16:00 09/23/18 16:00 Oxygen Flow Rate (L/min) 2 Oxygen Delivery Method Room Air Weight: 73 kg Body Mass Index (BMI) 21.8 Intake and Output for Last 24 Hours 09/21/18 09/22/18 09/23/18 23:59 23:59 23:59 Intake Total 1298 / 1298 1178 / 1178 2027 / 2027 Output Total 1650 / 1650 2160 / 2160 1909 / 1909 Balance -352 / -352 -982 / -982 118 / 118 Laboratory Tests Past 24 Hrs 09/23/18 09/23/18 05:48 05:48 WBC 8.0 RBC 3.97 L Hgb 13.0 Hct 39.9 L MCV 100.5 H MCH 32.7 H MCHC 32.6 RDW 11.8 RDW Differential 42.6 Plt Count 509 H MPV 9.1 Immature Gran % (Auto) 1.000 H Neut % (Auto) 71.9 H Lymph % (Auto) 13.1 L [place] % (Auto) 11.5 H Eos % (Auto) 1.4 Baso % (Auto) 1.1 H Absolute Neuts (auto) 5.8 Absolute Lymphs (auto) 1.05 Total Counted Not Reportable Sodium 138 Potassium 4.0 Chloride 104 Carbon Dioxide 25.0 Anion Gap 9 BUN 25 H Creatinine 1.44 H Estim Creat Clear Calc 54.21 Est GFR (MDRD) Af Amer 64 Est GFR (MDRD) Non-Af 53 L BUN/Creatinine Ratio 17.4 Glucose 130 H Calcium 8.6 Magnesium 1.9 Total Bilirubin 0.30 AST 12 L ALT 21 Alkaline Phosphatase 168 H Total Protein 6.3 L Albumin 2.3 L Globulin 4.0 Albumin/Globulin Ratio 0.6 L Triglycerides 93 POC Glucose 09/23/18 09/22/18 03:54 22:10 POC Glucose 137 H 124 H Medical Necessity - Tobacco Use Smoking Status: Never smoker Assessment/Plan All Active Problems Partial small bowel obstruction (Acute) New onset atrial fibrillation (Resolved) Hypotension (Resolved) 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 Now with small bowel obstruction. noted improved with conservative management. Postoperatively #14 status post laparoscopic converted to exploratory laparotomy with very extensive lysis of adhesions-greater than 2 hours, repair of small bowel enterotomy and segmental small bowel resection due to stricture with compromised bowel noted at area of tightest band. final pathology demonstrates no recurrent malignancy. abdominal multiview yesterday showed less small bowel gas and colonic gas. Will plan for clamping of the PEG tube and increasing liquid intaketo see if the patient will tolerate. Patient clinically deconditioned and considerable malnutrition. Even if tolerating liquids anticipate he will need SNF or LTAC placement for continued TPN and reconditioning. patient initially declined from insurance standpoint. Called to arrange peer to peer discussion. [facility] scheduled this appointment for Thursday at 3:30. given his overall clinical status of protein wasting and failure for quick resolution - on TPN.
[2018-09-23] MEDS: LORazepam 2 MG/ML Syringe 0.5 MG IV (21:40)
[2018-09-23 22:00] VITALS: BP 100/50; PULSE 65; RESP 16; TEMP 36.6; O2SAT 94
[2018-09-23 22:10] LABS: Bedside Glucose 123 mg/dL (70-110)
[2018-09-24 04:45] VITALS: BP 101/53; PULSE 62; RESP 16; TEMP 36.6; O2SAT 100
[2018-09-24] MEDS: Heparin Injection (Vial) 5,000 UNIT/ML VIAL 5000 UNIT SC ×3 (04:53→20:56)
[2018-09-24] MEDS: 0.9% NaCl Peripheral Flush Adult/Peds IV ×5 (04:54→20:55)
[2018-09-24 09:13] VITALS: BP 102/46; PULSE 75; RESP 16; TEMP 36.8; O2SAT 99
[2018-09-24 10:42] LABS: BUN 25 mg/dL (7-18); BUN/Creat Ratio 18.5 RATIO (10-20); Calcium,Total 8.4 mg/dL (8.5-10.1); Chloride 106 mmol/L (98-107); Creatinine, Serum 1.35 mg/dL (0.70-1.30); EST Glomerular Filtration Rate 57 mL/min (>60); Est Glom Filt Rate - Afr Amer 69 mL/min (>60); Estimated Creatinine Clearance 57.83 ml/min; Glucose 132 mg/dL (74-106); Potassium 3.9 mmol/L (3.5-5.1); Sodium Level 140 mmol/L (136-145)
[2018-09-24 10:43] LABS: Anion Gap 11 (5-15)
--- NOTE | 2018-09-24 11:54 | PCM.PN.HOSP ---
Patient Problems: Active and Suspected Problems Partial small bowel obstruction (Acute) Vitals/I&O's: Vital Signs Temp Pulse Resp BP Pulse Ox 98.2 F 75 16 102/46 L 99 09/24/18 09:13 09/24/18 09:13 09/24/18 09:13 09/24/18 09:13 09/24/18 09:13 Oxygen Flow Rate (L/min) 2 Oxygen Delivery Method Room Air Weight: 160 lb 14.999 oz Body Mass Index (BMI) 21.8 Intake and Output for Last 24 Hours 09/22/18 09/23/18 09/24/18 23:59 23:59 23:59 Intake Total 1178 / 1178 2692 / 2692 683 / 683 Output Total 2160 / 2160 2417 / 2417 554 / 554 Balance -982 / -982 275 / 275 129 / 129 General: Alert, Oriented x3, Cooperative, No apparent distress HEENT: Atraumatic, PERRLA, EOMI, Normocephalic Oral: Moist Mucosa Neck: Supple, No JVD, Negative Carotid Bruits Lungs: Clear to auscultation, Normal air movement, No rhonchi, No wheeze, No rales Cardiovascular: Regular rate, Regular Rhythm, Normal S1, Normal S2, No murmurs Abdomen: Bowel Sounds Present, Soft, Non Tender, Non-Distended, No Hepato-splenomegaly, - - PEG tube in place, draining bilious fluid. abdominal incision healing well, yelena in place Extremities: No clubbing, No cyanosis, No edema, Capillary Refill Less than 3 Seconds Skin: No rashes, No breakdown Musculoskeletal: No Tenderness to Palpation of Joints or Extremities Lymphatic: No Cervical, Supraclavicular, or Inguinal Adenopathy Neurological: Cranial nerves II-XII grossly intact, Neuro grossly intact, Motor Exam 5/5 strength throughout Psych/Mental Status: Normal Affect, Appropriate, Alert and oriented to time, place, person, mood and affect Laboratory Results 09/23/18 21:37: POC Glucose 123 H 09/24/18 10:15: Sodium 140, Potassium 3.9, Chloride 106, Carbon Dioxide 23.0, Anion Gap 11, BUN 25 H, Creatinine 1.35 H, Estim Creat Clear Calc 57.83, Est GFR (MDRD) Af Amer 69, Est GFR (MDRD) Non-Af 57 L, BUN/Creatinine Ratio 18.5, Glucose 132 H, Calcium 8.4 L Current Medications Dextrose (D50w Syringe) 0 gm IV X1 PRN; Protocol PRN Reason: Hypoglycemia Glucagon () 1 mg IM .X1 PRN PRN Reason: Hypoglycemia Heparin Sodium (Porcine) (Heparin Na) 5,000 unit SC Q8 OLINDA Last Admin: 09/24/18 04:53 Dose: 5,000 unit Hydralazine HCl (Apresoline Iv) 5 mg IV Q4H PRN PRN PRN Reason: SBP > 160 Naloxone HCl 4 mg/ Dextrose 504 mls @ 0 mls/hr IV .Q0M PRN; Protocol PRN Reason: To maintain Resp. rate >10 Pantoprazole Sodium 40 mg/ (Sodium Chloride) 110 mls @ 330 mls/hr IV DAILY@1500 OLINDA Last Admin: 09/23/18 15:46 Dose: 330 mls/hr Multivitamins 10 ml/ Chromium/Copper/Manganese/Seleni/Zn 1 ml/ Folic Acid 1 mg/ Amino Acids/Electrolytes 2,011.2 mls @ 84 mls/hr IV .[id number] [facility] Stop: 09/24/18 15:56 Last Admin: 09/23/18 15:51 Dose: 84 mls/hr Fat Emulsion Intravenous (Intralipid 20%) 250 mls @ 21 mls/hr IV .[id number] [facility] Stop: 09/25/18 03:54 Multivitamins 10 ml/ Chromium/Copper/Manganese/Seleni/Zn 1 ml/ Folic Acid 1 mg/ Amino Acids/Electrolytes 2,011.2 mls @ 84 mls/hr IV .[id number] [facility] Stop: 09/25/18 15:56 Lorazepam (Ativan) 0.5 mg IV Q4H PRN PRN PRN Reason: RESTLESSNESS Last Admin: 09/23/18 21:40 Dose: 0.5 mg Magnesium Hydroxide (Milk Of Magnesia) 30 ml PO DAILY PRN PRN PRN Reason: Constipation Morphine Sulfate () 1 - 3 mg IV Q1H PRN PRN PRN Reason: SEVERE PAIN (6-10/10) Last Admin: 09/17/18 15:30 Dose: 2 mg Morphine Sulfate () 1 - 3 mg IV Q1H PRN PRN PRN Reason: SEVERE PAIN (6-10/10) Multi-Ingredient Ointment (Aquaphor) 1 applic TOPICAL PRN PRN; Protocol PRN Reason: ULCERATED NARES Nutritional Formula (Lactose Free) (Ensure Clear) 120 ml PO 4X/DAY OLINDA Last Admin: 09/24/18 09:15 Dose: 120 ml Ondansetron HCl (Zofran) 4 mg IV Q6H PRN PRN PRN Reason: NAUSEA/VOMITING Last Admin: 09/17/18 15:31 Dose: 4 mg Phenol/Menthol (Chloraseptic (Bkc)) 3 spray MM Q2H PRN PRN PRN Reason: SORE THROAT Last Admin: 09/13/18 13:06 Dose: 3 spray Prochlorperazine Edisylate (Compazine Iv) 5 mg IV Q4H PRN PRN PRN Reason: NAUSEA/VOMITING Last Admin: 09/17/18 11:54 Dose: 5 mg Sodium Chloride () 5 - 15 ml IV UD PRN PRN Reason: SALINE FLUSH Last Admin: 09/24/18 10:17 Dose: 15 ml Throat Lozenges (Cepacol Sore Throat Lozenge) 1 lozenge MUCOUS MEM Q1H PRN PRN PRN Reason: SORE THROAT Medical Necessity - Tobacco Use Smoking Status: Never smoker Assessment/Plan All Active Problems Partial small bowel obstruction (Acute) New onset atrial fibrillation (Resolved) Hypotension (Resolved) 1. Small bowel obstruction s/p exploratory laparotomy and adhesiolysis today is POD 15 tolerating clear diet awaiting placement in SNF on TPN 2. Stage 4 colon cancer s/o resection (2015) being treated with Keytruda; to have next dose once discharged and he follows up with his oncologist 3.Hyperkalemia: resolved. 4. Severe protein energy malnutrition on TPN 5. Severe anxiety: on ativan prn. DVT prophylaxis: heparin GI prophylaxis: PPI Disposition: awaiting placement. Insurance refused precert for SNF or LTAC. Dr. Marx to do peer to peer with insurance at 3:30pm today Code Visit Inpatient E&M: 19564 Subs Hosp L2
--- NOTE | 2018-09-24 11:57 | PN_ITS ---
Patient Problems: Active and Suspected Problems Partial small bowel obstruction (Acute) Vitals/I&O's: Vital Signs Temp Pulse Resp BP Pulse Ox 98.2 F 75 16 102/46 L 99 09/24/18 09:13 09/24/18 09:13 09/24/18 09:13 09/24/18 09:13 09/24/18 09:13 Oxygen Flow Rate (L/min) 2 Oxygen Delivery Method Room Air Weight: 160 lb 14.999 oz Body Mass Index (BMI) 21.8 Intake and Output for Last 24 Hours 09/22/18 09/23/18 09/24/18 23:59 23:59 23:59 Intake Total 1178 / 1178 2692 / 2692 683 / 683 Output Total 2160 / 2160 2417 / 2417 554 / 554 Balance -982 / -982 275 / 275 129 / 129 General: Alert, Oriented x3, Cooperative, No apparent distress HEENT: Atraumatic, PERRLA, EOMI, Normocephalic Oral: Moist Mucosa Neck: Supple, No JVD, Negative Carotid Bruits Lungs: Clear to auscultation, Normal air movement, No rhonchi, No wheeze, No rales Cardiovascular: Regular rate, Regular Rhythm, Normal S1, Normal S2, No murmurs Abdomen: Bowel Sounds Present, Soft, Non Tender, Non-Distended, No Hepato- splenomegaly, - - PEG tube in place, draining bilious fluid. abdominal incision healing well, yelena in place Extremities: No clubbing, No cyanosis, No edema, Capillary Refill Less than 3 Seconds Skin: No rashes, No breakdown Musculoskeletal: No Tenderness to Palpation of Joints or Extremities Lymphatic: No Cervical, Supraclavicular, or Inguinal Adenopathy Neurological: Cranial nerves II-XII grossly intact, Neuro grossly intact, Motor Exam 5/5 strength throughout Psych/Mental Status: Normal Affect, Appropriate, Alert and oriented to time, place, person, mood and affect Laboratory Results 09/23/18 21:37: POC Glucose 123 H 09/24/18 10:15: Sodium 140, Potassium 3.9, Chloride 106, Carbon Dioxide 23.0, Anion Gap 11, BUN 25 H, Creatinine 1.35 H, Estim Creat Clear Calc 57.83, Est GFR (MDRD) Af Amer 69, Est GFR (MDRD) Non-Af 57 L, BUN/Creatinine Ratio 18.5, Glucose 132 H, Calcium 8.4 L Current Medications Dextrose (D50w Syringe) 0 gm IV X1 PRN; Protocol PRN Reason: Hypoglycemia Glucagon () 1 mg IM .X1 PRN PRN Reason: Hypoglycemia Heparin Sodium (Porcine) (Heparin Na) 5,000 unit SC Q8 OLINDA Last Admin: 09/24/18 04:53 Dose: 5,000 unit Hydralazine HCl (Apresoline Iv) 5 mg IV Q4H PRN PRN PRN Reason: SBP > 160 Naloxone HCl 4 mg/ Dextrose 504 mls @ 0 mls/hr IV .Q0M PRN; Protocol PRN Reason: To maintain Resp. rate >10 Pantoprazole Sodium 40 mg/ (Sodium Chloride) 110 mls @ 330 mls/hr IV DAILY@1500 OLINDA Last Admin: 09/23/18 15:46 Dose: 330 mls/hr Multivitamins 10 ml/ Chromium/Copper/Manganese/Seleni/Zn 1 ml/ Folic Acid 1 mg/ Amino Acids/Electrolytes 2,011.2 mls @ 84 mls/hr IV .[id number] [facility] Stop: 09/24/18 15:56 Last Admin: 09/23/18 15:51 Dose: 84 mls/hr Fat Emulsion Intravenous (Intralipid 20%) 250 mls @ 21 mls/hr IV .[id number] [facility] Stop: 09/25/18 03:54 Multivitamins 10 ml/ Chromium/Copper/Manganese/Seleni/Zn 1 ml/ Folic Acid 1 mg/ Amino Acids/Electrolytes 2,011.2 mls @ 84 mls/hr IV .[id number] [facility] Stop: 09/25/18 15:56 Lorazepam (Ativan) 0.5 mg IV Q4H PRN PRN PRN Reason: RESTLESSNESS Last Admin: 09/23/18 21:40 Dose: 0.5 mg Magnesium Hydroxide (Milk Of Magnesia) 30 ml PO DAILY PRN PRN PRN Reason: Constipation Morphine Sulfate () 1 - 3 mg IV Q1H PRN PRN PRN Reason: SEVERE PAIN (6-10/10) Last Admin: 09/17/18 15:30 Dose: 2 mg Morphine Sulfate () 1 - 3 mg IV Q1H PRN PRN PRN Reason: SEVERE PAIN (6-10/10) Multi-Ingredient Ointment (Aquaphor) 1 applic TOPICAL PRN PRN; Protocol PRN Reason: ULCERATED NARES Nutritional Formula (Lactose Free) (Ensure Clear) 120 ml PO 4X/DAY OLINDA Last Admin: 09/24/18 09:15 Dose: 120 ml Ondansetron HCl (Zofran) 4 mg IV Q6H PRN PRN PRN Reason: NAUSEA/VOMITING Last Admin: 09/17/18 15:31 Dose: 4 mg Phenol/Menthol (Chloraseptic (Bkc)) 3 spray MM Q2H PRN PRN PRN Reason: SORE THROAT Last Admin: 09/13/18 13:06 Dose: 3 spray Prochlorperazine Edisylate (Compazine Iv) 5 mg IV Q4H PRN PRN PRN Reason: NAUSEA/VOMITING Last Admin: 09/17/18 11:54 Dose: 5 mg Sodium Chloride () 5 - 15 ml IV UD PRN PRN Reason: SALINE FLUSH Last Admin: 09/24/18 10:17 Dose: 15 ml Throat Lozenges (Cepacol Sore Throat Lozenge) 1 lozenge MUCOUS MEM Q1H PRN PRN PRN Reason: SORE THROAT Medical Necessity - Tobacco Use Smoking Status: Never smoker Assessment/Plan All Active Problems Partial small bowel obstruction (Acute) New onset atrial fibrillation (Resolved) Hypotension (Resolved) 1. Small bowel obstruction s/p exploratory laparotomy and adhesiolysis * today is POD 15 * tolerating clear diet * awaiting placement in SNF * on TPN * * 2. Stage 4 colon cancer s/o resection (2015) * being treated with Keytruda; * to have next dose once discharged and he follows up with his oncologist * * 3.Hyperkalemia: resolved. 4. Severe protein energy malnutrition * on TPN * 5. Severe anxiety: on ativan prn. DVT prophylaxis: heparin GI prophylaxis: PPI Disposition: awaiting placement. Insurance refused precert for SNF or LTAC. Dr. Marx to do peer to peer with insurance at 3:30pm today Code Visit Inpatient E&M: 77350 Subs Hosp L2
--- NOTE | 2018-09-24 12:05 | CASEMGMT ---
Social Work Note HERMILA spoke with Georgina at [facility]. Per Georgina because the Peer to Peer is at 3:30pm today, they are unable to get TPN ordered for pt after the peer to peer. Georgina states that they won't order the TPN before the peer to peer as peer to peer may not be overturned and once the TPN is delivered, [facility] will be charged for TPN. If peer to peer is not overturned, [facility] will be charged for TPN that won't be used for pt. HERMILA updated RN LAINA Recinos who updated physician. HERMILA will continue to follow along to assist with discharge planning. If peer to peer is overturned, pt will have to be at [facility] until Thursday when [facility] can order TPN. Plan: Dr. Santamaria to complete peer to peer today at 3:30pm Adriane Oliva EXTRACTOR LOADER AND UNLOADER, PRACTICE ASSISTANT
--- NOTE | 2018-09-24 15:05 | CASEMGMT ---
HALIMA MARINA has sent referrals to [facility] and [facility] as a back up plan should SNF be denied. HALIMA MARINA working with pharmacist at [facility] for TPN recommendations. Per [facility] and [facility] due to limited resources on the weekend, discharge would be most appropriate and safe for Thursday. HALIMA MARINA will continue to work with and [facility] and [facility] to plan for a safe discharge for patient.
--- NOTE | 2018-09-24 15:46 | NURSING ---
Dr. Santamaria called and informed this nurse that he talked with a Dr. Buitrago from the peer to peer review and his insurance with except him/ Approved him to go to a SNF that can manage TPN. Case number is [id number]. Adriane Rma CM is aware of this as well. Spoke via phone.
--- NOTE | 2018-09-24 15:58 | CASEMGMT ---
Social Work Note HERMILA updated that Dr. Santamaria completed Peer to Peer and got approval for pt to go to SNF with TPN. HERMILA placed a call to Georgina at [facility] and left her a message informing her of this. Per previous conversations, pt will need to be at [facility] until Thursday as [facility] can't get TPN supplies until Thursday. Plan: [facility] Thursday Adriane Oliva CHUTE BUILDER, HAND STRIPER
[2018-09-24] MEDS: Fat Emulsions 20% 250 ML IV (17:16)
--- NOTE | 2018-09-24 18:10 | PCM.PN.SRG ---
Patient Problems: Active and Suspected Problems Partial small bowel obstruction (Acute) Subjective: some flatus, no bowel movement - Physical Exam General: Alert, Oriented x3, Cooperative Lungs: Clear to auscultation, Normal air movement Cardiovascular: Regular rate, No murmurs Abdomen: Soft, Non Tender, Hypoactive Bowel Sounds Vital Signs Temp Pulse Resp BP Pulse Ox 98.2 F 75 16 102/46 L 99 09/24/18 09:13 09/24/18 09:13 09/24/18 09:13 09/24/18 09:13 09/24/18 09:13 Oxygen Flow Rate (L/min) 2 Oxygen Delivery Method Room Air Weight: 73 kg Body Mass Index (BMI) 21.8 Intake and Output for Last 24 Hours 09/22/18 09/23/18 09/24/18 23:59 23:59 23:59 Intake Total 1178 / 1178 2692 / 2692 1464 / 1464 Output Total 2160 / 2160 2417 / 2417 1254 / 1254 Balance -982 / -982 275 / 275 210 / 210 Laboratory Tests Past 24 Hrs 09/24/18 10:15 Sodium 140 Potassium 3.9 Chloride 106 Carbon Dioxide 23.0 Anion Gap 11 BUN 25 H Creatinine 1.35 H Estim Creat Clear Calc 57.83 Est GFR (MDRD) Af Amer 69 Est GFR (MDRD) Non-Af 57 L BUN/Creatinine Ratio 18.5 Glucose 132 H Calcium 8.4 L POC Glucose 09/23/18 21:37 POC Glucose 123 H Medical Necessity - Tobacco Use Smoking Status: Never smoker Assessment/Plan All Active Problems Partial small bowel obstruction (Acute) New onset atrial fibrillation (Resolved) Hypotension (Resolved) 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 Now with small bowel obstruction. noted improved with conservative management. Postoperatively #15 status post laparoscopic converted to exploratory laparotomy with very extensive lysis of adhesions-greater than 2 hours, repair of small bowel enterotomy and segmental small bowel resection due to stricture with compromised bowel noted at area of tightest band. final pathology demonstrates no recurrent malignancy. abdominal multiview yesterday showed less small bowel gas and colonic gas. Will plan for clamping of the PEG tube and increasing liquid intaketo see if the patient will tolerate. Patient clinically deconditioned and considerable malnutrition. Even if tolerating liquids anticipate he will need SNF placement for continued TPN and reconditioning. patient initially declined from insurance standpoint. Called to arrange peer to peer discussion. [employer] scheduled this appointment for Thursday at 3:30. - discussed with Dr. Buitrago who approved SNF placement secondary to need for TPN, G tube site care, patient anxiety and need to monitor I's & O's as refeeding starts, along with patinet malnutrition given his overall clinical status of protein wasting and failure for quick resolution - on TPN.
[2018-09-24 20:49] VITALS: BP 100/41; PULSE 60; RESP 16; TEMP 36.7; O2SAT 96
[2018-09-24] MEDS: LORazepam 2 MG/ML Syringe 0.5 MG IV (20:58)
[2018-09-24 21:06] LABS: Bedside Glucose 134 mg/dL (70-110)
[2018-09-25] MEDS: Heparin Injection (Vial) 5,000 UNIT/ML VIAL 5000 UNIT SC ×3 (04:52→21:46)
[2018-09-25 04:56] VITALS: BP 108/53; PULSE 78; RESP 14; TEMP 36.6; O2SAT 95
[2018-09-25 08:56] LABS: Anion Gap 9 (5-15); BUN 23 mg/dL (7-18); BUN/Creat Ratio 16.9 RATIO (10-20); Calcium,Total 8.7 mg/dL (8.5-10.1); Chloride 106 mmol/L (98-107); Creatinine, Serum 1.36 mg/dL (0.70-1.30); EST Glomerular Filtration Rate 56 mL/min (>60); Est Glom Filt Rate - Afr Amer 68 mL/min (>60); Glucose 127 mg/dL (74-106); Potassium 4.6 mmol/L (3.5-5.1); Sodium Level 139 mmol/L (136-145)
--- NOTE | 2018-09-25 09:14 | PN.SURG_ITS ---
Patient Problems: Active and Suspected Problems Partial small bowel obstruction (Acute) Subjective: no nausea, some flatus, no bowel movement - Physical Exam General: Alert, Oriented x3, Cooperative Lungs: Clear to auscultation, Normal air movement Cardiovascular: Regular rate, No murmurs Abdomen: Bowel Sounds Present, Soft, Non Tender Vital Signs Temp Pulse Resp BP Pulse Ox 98 F 78 14 108/53 L 95 09/25/18 04:56 09/25/18 04:56 09/25/18 04:56 09/25/18 04:56 09/25/18 04:56 Oxygen Flow Rate (L/min) 2 Oxygen Delivery Method Room Air Weight: 73 kg Body Mass Index (BMI) 21.8 Intake and Output for Last 24 Hours 09/23/18 09/24/18 09/25/18 23:59 23:59 23:59 Intake Total 2692 / 2692 2309 / 2309 945 / 945 Output Total 2417 / 2417 1934 / 1934 1103 / 1103 Balance 275 / 275 375 / 375 -158 / -158 Laboratory Tests Past 24 Hrs 09/24/18 09/25/18 10:15 08:15 Sodium 140 139 Potassium 3.9 4.6 Chloride 106 106 Carbon Dioxide 23.0 24.0 Anion Gap 11 9 BUN 25 H 23 H Creatinine 1.35 H 1.36 H Estim Creat Clear Calc 57.83 57.40 Est GFR (MDRD) Af Amer 69 68 Est GFR (MDRD) Non-Af 57 L 56 L BUN/Creatinine Ratio 18.5 16.9 Glucose 132 H 127 H Calcium 8.4 L 8.7 POC Glucose 09/24/18 20:54 POC Glucose 134 H Medical Necessity - Tobacco Use Smoking Status: Never smoker Assessment/Plan All Active Problems Partial small bowel obstruction (Acute) New onset atrial fibrillation (Resolved) Hypotension (Resolved) 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 Now with small bowel obstruction. noted improved with conservative management. Postoperatively #16 status post laparoscopic converted to exploratory laparotomy with very extensive lysis of adhesions-greater than 2 hours, repair of small bowel enterotomy and segmental small bowel resection due to stricture with compromised bowel noted at area of tightest band. final pathology demonstrates no recurrent malignancy. patient tolerated for cans of ensure clear yesterday without nausea and had no residual output from the PEG tube. We'll continue to have PEG tube clamped and encourage up to 6 cans of ensure per day. We'll record total oral caloric intake. Patient clinically deconditioned and considerable malnutrition. Even if tolerating liquids anticipate he will need SNF placement for continued TPN and reconditioning. patient initially declined from insurance standpoint. Called to arrange peer to peer discussion. [employer] scheduled this appointment for Thursday at 3:30. - discussed with Dr. Buitrago who approved SNF placement secondary to need for TPN, G tube site care, patient anxiety and need to monitor I's & O's as refeeding starts, along with patinet malnutrition given his overall clinical status of protein wasting and failure for quick resolution - on TPN.
--- NOTE | 2018-09-25 09:56 | PCM.PN.HOSP ---
Patient Problems: Active and Suspected Problems Partial small bowel obstruction (Acute) Subjective: Patient seen and examined. He has no complaints. He had an uneventful night. 12 point review of otherwise negative. I was informed by direct that patient was willing to try a low to medication to help with his anxiety. However during my review, patient said he would rather try to deal with it on his own and did not want to start medication. He thought his anxiety has been exacerbated by the fact that he had been in hospital for so long. PH appear by Dr. Mrax was successful and patient has been given approval [facility] to [facility]. However he has to wait till Thursday for TPN to be set up at the residential. Vitals/I&O's: Vital Signs Temp Pulse Resp BP Pulse Ox 98 F 78 14 108/53 L 95 09/25/18 04:56 09/25/18 04:56 09/25/18 04:56 09/25/18 04:56 09/25/18 04:56 Oxygen Flow Rate (L/min) 2 Oxygen Delivery Method Room Air Weight: 160 lb 14.999 oz Body Mass Index (BMI) 21.8 Intake and Output for Last 24 Hours 09/23/18 09/24/18 09/25/18 23:59 23:59 23:59 Intake Total 2692 / 2692 2309 / 2309 945 / 945 Output Total 2417 / 2417 1934 / 1934 1103 / 1103 Balance 275 / 275 375 / 375 -158 / -158 General: Alert, Oriented x3, Cooperative, No apparent distress HEENT: Atraumatic, PERRLA, EOMI, Normocephalic Oral: Moist Mucosa Neck: Supple, No JVD, Negative Carotid Bruits Lungs: Clear to auscultation, Normal air movement, No rhonchi, No wheeze, No rales Cardiovascular: Regular rate, Regular Rhythm, Normal S1, Normal S2, No murmurs Abdomen: Bowel Sounds Present, Soft, Non Tender, Non-Distended, No Hepato-splenomegaly, - - PEG tube in place, draining bilious fluid. abdominal incision healing well, yelena removed Extremities: No clubbing, No cyanosis, No edema, Capillary Refill Less than 3 Seconds Skin: No rashes, No breakdown Musculoskeletal: No Tenderness to Palpation of Joints or Extremities Lymphatic: No Cervical, Supraclavicular, or Inguinal Adenopathy Neurological: Cranial nerves II-XII grossly intact, Neuro grossly intact, Motor Exam 5/5 strength throughout Psych/Mental Status: Normal Affect, Appropriate, Alert and oriented to time, place, person, mood and affect Laboratory Results 09/24/18 10:15: Sodium 140, Potassium 3.9, Chloride 106, Carbon Dioxide 23.0, Anion Gap 11, BUN 25 H, Creatinine 1.35 H, Estim Creat Clear Calc 57.83, Est GFR (MDRD) Af Amer 69, Est GFR (MDRD) Non-Af 57 L, BUN/Creatinine Ratio 18.5, Glucose 132 H, Calcium 8.4 L 09/24/18 20:54: POC Glucose 134 H 09/25/18 08:15: Sodium 139, Potassium 4.6, Chloride 106, Carbon Dioxide 24.0, Anion Gap 9, BUN 23 H, Creatinine 1.36 H, Estim Creat Clear Calc 57.40, Est GFR (MDRD) Af Amer 68, Est GFR (MDRD) Non-Af 56 L, BUN/Creatinine Ratio 16.9, Glucose 127 H, Calcium 8.7 Current Medications Dextrose (D50w Syringe) 0 gm IV X1 PRN; Protocol PRN Reason: Hypoglycemia Glucagon () 1 mg IM .X1 PRN PRN Reason: Hypoglycemia Heparin Sodium (Porcine) (Heparin Na) 5,000 unit SC Q8 [facility] Last Admin: 09/25/18 04:52 Dose: 5,000 unit Hydralazine HCl (Apresoline Iv) 5 mg IV Q4H PRN PRN PRN Reason: SBP > 160 Naloxone HCl 4 mg/ Dextrose 504 mls @ 0 mls/hr IV .Q0M PRN; Protocol PRN Reason: To maintain Resp. rate >10 Pantoprazole Sodium 40 mg/ (Sodium Chloride) 110 mls @ 330 mls/hr IV DAILY@1500 [facility] Last Admin: 09/24/18 16:00 Dose: 330 mls/hr Multivitamins 10 ml/ Chromium/Copper/Manganese/Seleni/Zn 1 ml/ Folic Acid 1 mg/ Amino Acids/Electrolytes 2,011.2 mls @ 84 mls/hr IV .[id number] [facility] Stop: 09/25/18 15:56 Last Admin: 09/24/18 17:17 Dose: 84 mls/hr Lorazepam (Ativan) 0.5 mg IV Q4H PRN PRN PRN Reason: RESTLESSNESS Last Admin: 09/24/18 20:58 Dose: 0.5 mg Magnesium Hydroxide (Milk Of Magnesia) 30 ml PO DAILY PRN PRN PRN Reason: Constipation Morphine Sulfate () 1 - 3 mg IV Q1H PRN PRN PRN Reason: SEVERE PAIN (6-10/10) Last Admin: 09/17/18 15:30 Dose: 2 mg Morphine Sulfate () 1 - 3 mg IV Q1H PRN PRN PRN Reason: SEVERE PAIN (6-10/10) Multi-Ingredient Ointment (Aquaphor) 1 applic TOPICAL PRN PRN; Protocol PRN Reason: ULCERATED NARES Nutritional Formula (Lactose Free) (Ensure Clear) 120 ml PO 4X/DAY [facility] Last Admin: 09/25/18 09:07 Dose: 120 ml Ondansetron HCl (Zofran) 4 mg IV Q6H PRN PRN PRN Reason: NAUSEA/VOMITING Last Admin: 09/17/18 15:31 Dose: 4 mg Phenol/Menthol (Chloraseptic (Bkc)) 3 spray MM Q2H PRN PRN PRN Reason: SORE THROAT Last Admin: 09/13/18 13:06 Dose: 3 spray Prochlorperazine Edisylate (Compazine Iv) 5 mg IV Q4H PRN PRN PRN Reason: NAUSEA/VOMITING Last Admin: 09/17/18 11:54 Dose: 5 mg Sodium Chloride () 5 - 15 ml IV UD PRN PRN Reason: SALINE FLUSH Last Admin: 09/24/18 20:55 Dose: 10 ml Throat Lozenges (Cepacol Sore Throat Lozenge) 1 lozenge MUCOUS MEM Q1H PRN PRN PRN Reason: SORE THROAT Medical Necessity - Tobacco Use Smoking Status: Never smoker Assessment/Plan All Active Problems Partial small bowel obstruction (Acute) New onset atrial fibrillation (Resolved) Hypotension (Resolved) 1. Small bowel obstruction s/p exploratory laparotomy and adhesiolysis today is POD 16 tolerating clear diet awaiting placement in SNF on TPN 2. Stage 4 colon cancer s/o resection (2016) being treated with Keytruda; to have next dose once discharged and he follows up with his oncologist 3.Hyperkalemia: resolved. 4. Severe protein energy malnutrition on TPN 5. Severe anxiety: on ativan prn. still refusing custodial meds. DVT prophylaxis: heparin GI prophylaxis: PPI Disposition: awaiting placement. Insurance approved pre-cert after peer to peer by Dr Marx. For DC to SNF on Thursday to allow time for TPN to be set up at SNF. Code Visit Inpatient E&M: 53153 Subs Hosp L2
--- NOTE | 2018-09-25 09:59 | PN_ITS ---
Patient Problems: Active and Suspected Problems Partial small bowel obstruction (Acute) Subjective: Patient seen and examined. He has no complaints. He had an uneventful night. 12 point review of otherwise negative. I was informed by direct that patient was willing to try a low to medication to help with his anxiety. However during my review, patient said he would rather try to deal with it on his own and did not want to start medication. He thought his anxiety has been exacerbated by the fact that he had been in hospital for so long. PH appear by Dr. Marx was successful and patient has been given approval for pre-search to [facility] facility. However he has to wait till Thursday for TPN to be set up at the assisted. Vitals/I&O's: Vital Signs Temp Pulse Resp BP Pulse Ox 98 F 78 14 108/53 L 95 09/25/18 04:56 09/25/18 04:56 09/25/18 04:56 09/25/18 04:56 09/25/18 04:56 Oxygen Flow Rate (L/min) 2 Oxygen Delivery Method Room Air Weight: 160 lb 14.999 oz Body Mass Index (BMI) 21.8 Intake and Output for Last 24 Hours 09/23/18 09/24/18 09/25/18 23:59 23:59 23:59 Intake Total 2692 / 2692 2309 / 2309 945 / 945 Output Total 2417 / 2417 1934 / 1934 1103 / 1103 Balance 275 / 275 375 / 375 -158 / -158 General: Alert, Oriented x3, Cooperative, No apparent distress HEENT: Atraumatic, PERRLA, EOMI, Normocephalic Oral: Moist Mucosa Neck: Supple, No JVD, Negative Carotid Bruits Lungs: Clear to auscultation, Normal air movement, No rhonchi, No wheeze, No rales Cardiovascular: Regular rate, Regular Rhythm, Normal S1, Normal S2, No murmurs Abdomen: Bowel Sounds Present, Soft, Non Tender, Non-Distended, No Hepato- splenomegaly, - - PEG tube in place, draining bilious fluid. abdominal incision healing well, yelena removed Extremities: No clubbing, No cyanosis, No edema, Capillary Refill Less than 3 Seconds Skin: No rashes, No breakdown Musculoskeletal: No Tenderness to Palpation of Joints or Extremities Lymphatic: No Cervical, Supraclavicular, or Inguinal Adenopathy Neurological: Cranial nerves II-XII grossly intact, Neuro grossly intact, Motor Exam 5/5 strength throughout Psych/Mental Status: Normal Affect, Appropriate, Alert and oriented to time, place, person, mood and affect Laboratory Results 09/24/18 10:15: Sodium 140, Potassium 3.9, Chloride 106, Carbon Dioxide 23.0, Anion Gap 11, BUN 25 H, Creatinine 1.35 H, Estim Creat Clear Calc 57.83, Est GFR (MDRD) Af Amer 69, Est GFR (MDRD) Non-Af 57 L, BUN/Creatinine Ratio 18.5, Glucose 132 H, Calcium 8.4 L 09/24/18 20:54: POC Glucose 134 H 09/25/18 08:15: Sodium 139, Potassium 4.6, Chloride 106, Carbon Dioxide 24.0, Anion Gap 9, BUN 23 H, Creatinine 1.36 H, Estim Creat Clear Calc 57.40, Est GFR (MDRD) Af Amer 68, Est GFR (MDRD) Non-Af 56 L, BUN/Creatinine Ratio 16.9, Glucose 127 H, Calcium 8.7 Current Medications Dextrose (D50w Syringe) 0 gm IV X1 PRN; Protocol PRN Reason: Hypoglycemia Glucagon () 1 mg IM .X1 PRN PRN Reason: Hypoglycemia Heparin Sodium (Porcine) (Heparin Na) 5,000 unit SC Q8 [facility] Last Admin: 09/25/18 04:52 Dose: 5,000 unit Hydralazine HCl (Apresoline Iv) 5 mg IV Q4H PRN PRN PRN Reason: SBP > 160 Naloxone HCl 4 mg/ Dextrose 504 mls @ 0 mls/hr IV .Q0M PRN; Protocol PRN Reason: To maintain Resp. rate >10 Pantoprazole Sodium 40 mg/ (Sodium Chloride) 110 mls @ 330 mls/hr IV DAILY@1500 [facility] Last Admin: 09/24/18 16:00 Dose: 330 mls/hr Multivitamins 10 ml/ Chromium/Copper/Manganese/Seleni/Zn 1 ml/ Folic Acid 1 mg/ Amino Acids/Electrolytes 2,011.2 mls @ 84 mls/hr IV .[id number] [facility] Stop: 09/25/18 15:56 Last Admin: 09/24/18 17:17 Dose: 84 mls/hr Lorazepam (Ativan) 0.5 mg IV Q4H PRN PRN PRN Reason: RESTLESSNESS Last Admin: 09/24/18 20:58 Dose: 0.5 mg Magnesium Hydroxide (Milk Of Magnesia) 30 ml PO DAILY PRN PRN PRN Reason: Constipation Morphine Sulfate () 1 - 3 mg IV Q1H PRN PRN PRN Reason: SEVERE PAIN (6-10/10) Last Admin: 09/17/18 15:30 Dose: 2 mg Morphine Sulfate () 1 - 3 mg IV Q1H PRN PRN PRN Reason: SEVERE PAIN (6-10/10) Multi-Ingredient Ointment (Aquaphor) 1 applic TOPICAL PRN PRN; Protocol PRN Reason: ULCERATED NARES Nutritional Formula (Lactose Free) (Ensure Clear) 120 ml PO 4X/DAY [facility] Last Admin: 09/25/18 09:07 Dose: 120 ml Ondansetron HCl (Zofran) 4 mg IV Q6H PRN PRN PRN Reason: NAUSEA/VOMITING Last Admin: 09/17/18 15:31 Dose: 4 mg Phenol/Menthol (Chloraseptic (Bkc)) 3 spray MM Q2H PRN PRN PRN Reason: SORE THROAT Last Admin: 09/13/18 13:06 Dose: 3 spray Prochlorperazine Edisylate (Compazine Iv) 5 mg IV Q4H PRN PRN PRN Reason: NAUSEA/VOMITING Last Admin: 09/17/18 11:54 Dose: 5 mg Sodium Chloride () 5 - 15 ml IV UD PRN PRN Reason: SALINE FLUSH Last Admin: 09/24/18 20:55 Dose: 10 ml Throat Lozenges (Cepacol Sore Throat Lozenge) 1 lozenge MUCOUS MEM Q1H PRN PRN PRN Reason: SORE THROAT Medical Necessity - Tobacco Use Smoking Status: Never smoker Assessment/Plan All Active Problems Partial small bowel obstruction (Acute) New onset atrial fibrillation (Resolved) Hypotension (Resolved) 1. Small bowel obstruction s/p exploratory laparotomy and adhesiolysis * today is POD 16 * tolerating clear diet * awaiting placement in SNF * on TPN * * 2. Stage 4 colon cancer s/o resection (2015) * being treated with Keytruda; * to have next dose once discharged and he follows up with his oncologist * * 3.Hyperkalemia: resolved. 4. Severe protein energy malnutrition * on TPN * 5. Severe anxiety: on ativan prn. 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 DVT prophylaxis: heparin GI prophylaxis: PPI Disposition: * awaiting placement. * Insurance approved pre-cert after peer to peer by Dr Marx. * For DC to SNF on Thursday to allow time for TPN to be set up at SNF. Code Visit Inpatient E&M: 99407 Subs Hosp L2
[2018-09-25 10:30] VITALS: BP 115/54; PULSE 68; RESP 16; TEMP 36.3; O2SAT 98
[2018-09-25 15:26] VITALS: BP 105/47; PULSE 79; RESP 16; TEMP 36.4; O2SAT 100
[2018-09-25] MEDS: 0.9% NaCl Peripheral Flush Adult/Peds IV ×3 (16:26→22:04)
[2018-09-25 21:38] VITALS: BP 103/23; PULSE 78; RESP 16; TEMP 36.5; O2SAT 96
[2018-09-25] MEDS: LORazepam 2 MG/ML Syringe 0.5 MG IV (22:04)
[2018-09-26 02:50] VITALS: BP 94/27; PULSE 74; RESP 14; TEMP 36.7; O2SAT 96
[2018-09-26] MEDS: 0.9% NaCl Peripheral Flush Adult/Peds IV ×4 (03:00→21:26)
[2018-09-26] MEDS: LORazepam 2 MG/ML Syringe 0.5 MG IV ×2 (03:00→21:26)
[2018-09-26] MEDS: Heparin Injection (Vial) 5,000 UNIT/ML VIAL 5000 UNIT SC ×3 (05:46→21:26)
--- NOTE | 2018-09-26 09:54 | PN_ITS ---
Patient Problems: Active and Suspected Problems Partial small bowel obstruction (Acute) Subjective: Patient seen and examined. He had an uneventful night and has no complaints. He denies any fever chills, cough or chest pain, shortness of breath, abdominal pain, diarrhea vomiting. He is tolerating clear liquids very well. Vitals/I&O's: Vital Signs Temp Pulse Resp BP Pulse Ox 98.0 F 74 14 94/27 L 96 09/26/18 02:50 09/26/18 02:50 09/26/18 02:50 09/26/18 02:50 09/26/18 02:50 Oxygen Flow Rate (L/min) 2 Oxygen Delivery Method Room Air Weight: 160 lb 14.999 oz Body Mass Index (BMI) 21.8 Intake and Output for Last 24 Hours 09/24/18 09/25/18 09/26/18 23:59 23:59 23:59 Intake Total 2309 / 2309 2865 / 2865 1524 / 1524 Output Total 1934 / 1934 2503 / 2503 1575 / 1575 Balance 375 / 375 362 / 362 -51 / -51 General: Alert, Oriented x3, Cooperative, No apparent distress HEENT: Atraumatic, PERRLA, EOMI, Normocephalic Oral: Moist Mucosa Neck: Supple, No JVD, Negative Carotid Bruits Lungs: Clear to auscultation, Normal air movement, No rhonchi, No wheeze, No rales Cardiovascular: Regular rate, Regular Rhythm, Normal S1, Normal S2, No murmurs Abdomen: Bowel Sounds Present, Soft, Non Tender, Non-Distended, No Hepato- splenomegaly, - - PEG tube in place. abdominal incision healing well, yelena removed Extremities: No clubbing, No cyanosis, No edema, Capillary Refill Less than 3 Seconds Skin: No rashes, No breakdown Musculoskeletal: No Tenderness to Palpation of Joints or Extremities Lymphatic: No Cervical, Supraclavicular, or Inguinal Adenopathy Neurological: Cranial nerves II-XII grossly intact, Neuro grossly intact, Motor Exam 5/5 strength throughout Psych/Mental Status: Normal Affect, Appropriate, Alert and oriented to time, place, person, mood and affect Current Medications Dextrose (D50w Syringe) 0 gm IV X1 PRN; Protocol PRN Reason: Hypoglycemia Emollient Ointment (Eucerin Intensive Repair) 1 applic TOPICAL 4X/DAY PRN PRN; Protocol PRN Reason: Dry Skin Last Admin: 09/25/18 21:47 Dose: 1 applicatio Glucagon () 1 mg IM .X1 PRN PRN Reason: Hypoglycemia Heparin Sodium (Porcine) (Heparin Na) 5,000 unit SC Q8 [facility] Last Admin: 09/26/18 05:46 Dose: 5,000 unit Hydralazine HCl (Apresoline Iv) 5 mg IV Q4H PRN PRN PRN Reason: SBP > 160 Naloxone HCl 4 mg/ Dextrose 504 mls @ 0 mls/hr IV .Q0M PRN; Protocol PRN Reason: To maintain Resp. rate >10 Pantoprazole Sodium 40 mg/ (Sodium Chloride) 110 mls @ 330 mls/hr IV DAILY@1500 [facility] Last Admin: 09/25/18 16:26 Dose: 330 mls/hr Multivitamins 10 ml/ Chromium/Copper/Manganese/Seleni/Zn 1 ml/ Folic Acid 1 mg/ Amino Acids/Electrolytes 2,011.2 mls @ 84 mls/hr IV .[id number] [facility] Stop: 09/26/18 15:56 Last Admin: 09/25/18 17:32 Dose: 84 mls/hr Lorazepam (Ativan) 0.5 mg IV Q4H PRN PRN PRN Reason: RESTLESSNESS Last Admin: 09/26/18 03:00 Dose: 0.5 mg Magnesium Hydroxide (Milk Of Magnesia) 30 ml PO DAILY PRN PRN PRN Reason: Constipation Multi-Ingredient Ointment (Aquaphor) 1 applic TOPICAL PRN PRN; Protocol PRN Reason: ULCERATED NARES Nutritional Formula (Lactose Free) (Ensure Clear) 120 ml PO 6X/DAY [facility] Ondansetron HCl (Zofran) 4 mg IV Q6H PRN PRN PRN Reason: NAUSEA/VOMITING Last Admin: 09/17/18 15:31 Dose: 4 mg Phenol/Menthol (Chloraseptic (Bkc)) 3 spray MM Q2H PRN PRN PRN Reason: SORE THROAT Last Admin: 09/13/18 13:06 Dose: 3 spray Prochlorperazine Edisylate (Compazine Iv) 5 mg IV Q4H PRN PRN PRN Reason: NAUSEA/VOMITING Last Admin: 09/17/18 11:54 Dose: 5 mg Sodium Chloride () 5 - 15 ml IV UD PRN PRN Reason: SALINE FLUSH Last Admin: 09/26/18 03:00 Dose: 10 ml Throat Lozenges (Cepacol Sore Throat Lozenge) 1 lozenge MUCOUS MEM Q1H PRN PRN PRN Reason: SORE THROAT Medical Necessity - Tobacco Use Smoking Status: Never smoker Assessment/Plan All Active Problems Partial small bowel obstruction (Acute) New onset atrial fibrillation (Resolved) Hypotension (Resolved) 1. Small bowel obstruction s/p exploratory laparotomy and adhesiolysis * today is POD 17 * tolerating clear diet * awaiting placement in SNF * on TPN * * 2. Stage 4 colon cancer s/o resection (2015) * being treated with Keytruda; * to have next dose once discharged and he follows up with his oncologist * * 3.Hyperkalemia: resolved. 4. Severe protein energy malnutrition * on TPN * tolerating clear liquids very well. To progress as per general surgery * 5. Severe anxiety: on ativan prn. 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 DVT prophylaxis: heparin GI prophylaxis: PPI Disposition: * awaiting placement. * Insurance approved pre-cert after peer to peer by Dr Marx. * For DC to SNF on Thursday to allow time for TPN to be set up at SNF. Code Visit Inpatient E&M: 74888 Subs Hosp L2
[2018-09-26 10:20] VITALS: BP 109/68; PULSE 70; RESP 16; TEMP 37.2; O2SAT 98
--- NOTE | 2018-09-26 12:12 | PCM.PN.SRG ---
Patient Problems: Active and Suspected Problems Partial small bowel obstruction (Acute) - Physical Exam General: Alert, Oriented x3, Cooperative Lungs: Clear to auscultation, Normal air movement Cardiovascular: Regular rate, No murmurs Abdomen: Bowel Sounds Present, Soft, Non Tender Vital Signs Temp Pulse Resp BP Pulse Ox 98.0 F 74 14 94/27 L 96 09/26/18 02:50 09/26/18 02:50 09/26/18 02:50 09/26/18 02:50 09/26/18 02:50 Oxygen Flow Rate (L/min) 2 Oxygen Delivery Method Room Air Weight: 73 kg Body Mass Index (BMI) 21.8 Intake and Output for Last 24 Hours 09/24/18 09/25/18 09/26/18 23:59 23:59 23:59 Intake Total 2309 / 2309 2865 / 2865 1524 / 1524 Output Total 1934 / 1934 2503 / 2503 1575 / 1575 Balance 375 / 375 362 / 362 -51 / -51 Medical Necessity - Tobacco Use Smoking Status: Never smoker Assessment/Plan All Active Problems Partial small bowel obstruction (Acute) New onset atrial fibrillation (Resolved) Hypotension (Resolved) 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 Now with small bowel obstruction. noted improved with conservative management. Postoperatively #17 status post laparoscopic converted to exploratory laparotomy with very extensive lysis of adhesions-greater than 2 hours, repair of small bowel enterotomy and segmental small bowel resection due to stricture with compromised bowel noted at area of tightest band. final pathology demonstrates no recurrent malignancy. patient tolerated for cans of ensure clear yesterday without nausea and had no residual output from the PEG tube. We'll continue to have PEG tube clamped and encourage up to 6 cans of ensure per day. We'll record total oral caloric intake. Patient clinically deconditioned and considerable malnutrition. Even if tolerating liquids anticipate he will need SNF placement for continued TPN and reconditioning. patient initially declined from insurance standpoint. Called to arrange peer to peer discussion. [employer] scheduled this appointment for Thursday at 3:30. - discussed with Dr. Buitrago who approved SNF placement secondary to need for TPN, G tube site care, patient anxiety and need to monitor I's & O's as refeeding starts, along with patient malnutrition. Calorie counts given his overall clinical status of protein wasting and failure for quick resolution - on TPN.
[2018-09-26 16:20] VITALS: BP 99/63; PULSE 87; RESP 16; TEMP 36.6; O2SAT 98
[2018-09-26 20:24] VITALS: BP 104/51; PULSE 81; RESP 14; TEMP 36.6; O2SAT 96
[2018-09-27 03:41] VITALS: BP 98/55; PULSE 75; RESP 14; TEMP 36.6; O2SAT 97
[2018-09-27] MEDS: Heparin Injection (Vial) 5,000 UNIT/ML VIAL 5000 UNIT SC ×2 (06:47→15:42)
[2018-09-27 08:38] VITALS: BP 96/49; PULSE 77; RESP 16; TEMP 36.4; O2SAT 98
--- NOTE | 2018-09-27 10:43 | PCM.TXEXTCAR ---
- Diet 09/27/18 06:48 Diet: No Gastric Stimulus/Low Residue Is pt able to select menu?: Yes Diet Comments: NURSING TO GIVE 6 ENSURE CLEARS A DAY - Routine Orders/Code Status Routine Lab Work: CBC, - - CMP WEEKLY - Wound(s) ABD Wound Type: Surgical Incision Dressing Change: PEG TUBE ATTACHED TO FRENCH BAG. left nares Wound Type: Pressure Injury LUQ/PEG Wound Type: Surgical Incision nu heels Wound Type: crack in skin x2 each heel - Therapies Physical Therapy: Eval and Treat Occupational Therapy: Eval and Treat - Allergies/Procedures Done in Hospital Allergies/Adverse Reactions: Allergies No Known Allergies Allergy (Verified 09/03/18 15:59) - Type of Care/Length of Stay Estimated LOS: Convalescent Care Less Than 30 days Type of Care Needed: Skilled Rehab Potential: Fair Prognosis: Fair - Additional Orders/Day of Discharge Day of Discharge: 09/27/18 - Dietary and Speech Recommendations Dietitian Recommendations/Changes: Please resume daily wts. Continue TPN until PO diet or enteral feeding is meeting at least 75% of pt's estimated calorie/protein needs. Will re-evaluate TPN amount pending intake of Ensure Clear as ordered. TPN: rec 2L 5%AA, 20%Dextrose with 250 cc 20%lipids 3x/wk to provide ~ 2000 fidel / 100 gm pro/day. Do not anticipate pt will successfully tolerate enteral tube feeds that will meet estimated nutritional needs given impaired GI function. If enteral feeds to be initiated, rec Vivonex RTF would need to be special ordered. Consult RD for further recommendations as indicated. - Follow Up Care Primary Care Physician: Selin Fontanez [NON-STAFF] - Please follow up with your Primary Care Physician in: ONE WEEK Please Follow Up With: Anderson Santamaria MD When: 1-2 WEEKS
--- NOTE | 2018-09-27 10:46 | PCM.DC.SUM ---
Discharge Date and Diagnosis - Problem List Patient Problems: Active and Suspected Problems Partial small bowel obstruction (Acute) Date of Admission: 09/03/18 Date of Discharge: 09/27/18 - Primary Discharge Diagnosis Active and Suspected Problems Partial small bowel obstruction (Acute) - Secondary Discharge Diagnosis Chronic Problems Colon cancer (Chronic) Hospital Course and Treatment Imaging Results: Diagnostic Data Abdomen/Pelvis CT 09/03/18 16:30 IMPRESSION: 1. Findings consistent with a significant partial small bowel obstruction with an abrupt transition in the posterior mid abdomen proximity to prior postsurgical change. There is no other demonstrated obstructing pathology, so this may reflect an adhesion. There is moderate distention of the stomach with gas and undigested food status. No free gas. 2. Mural thickening of the distal esophagus, which may reflect local esophagitis. 3. Prior right nephrectomy. There is mild left renal caliectasis. 4. Prior cholecystectomy. The appendix not visualized. 5. Very small volume free fluid in the posterior pelvic region. 6. Degenerative changes of the spine, including mild rightward subluxation of L3 on L4 and dextroscoliosis centered at L2-3. Electronically Signed: Bari Gasca MD at 18:32 EST , Service support , Abdomen CT 09/06/18 07:32 IMPRESSION: Stable examination demonstrating small bowel obstruction. Electronically Signed: Moo Trinh MD at 11:00 EST Tel [phone], Service support , Chest X-Ray 09/10/18 14:55 IMPRESSION: NG tube is present the tip is in the stomach. Minimal right middle lobe atelectasis. Right-sided Port-A-Cath tip is in the spur vena cava. Electronically Signed: Christiane Sanderson MD at 19:49 EST Tel , Service support , KUB X-Ray 09/14/18 17:10 IMPRESSION: Enteric tube tip in the stomach. Stable dilated loops of small bowel which likely represent obstruction. Electronically Signed: Colten Benitez, at 17:52 EST Tel , Service support , Abdomen X-Ray 09/22/18 08:00 IMPRESSION: Decreasing dilatation of small bowel since the previous study with findings still suggestive of residual obstruction Electronically Signed: Nissa Aden MD at 8:43 EST , Service support , general surgery- Dr Santamaria Operations: - - laparoscopic converted to open exploratory laparotomy, extensive lysis of adhesions, repair of enterotomy, small bowel resection Summary of Care Provided: The patient is a 62 year old M with a PMH of colon cancer status post colectomy and chemotherapy and now on immunotherapy with Keytruda. He was admitted with a complaint of sudden onset severe nonradiating diffuse abdominal pain that started the day before his admission. Patient had no aggravating or relieving factors. He also had inability to have bowel movements associated with pain he also had nausea and vomiting. CT of the abdomen and pelvis done in the ED was remarkable for small bowel obstruction. An NG tube was placed and patient was admitted and managed for small bowel obstruction likely due to adhesions from previous surgeries. General surgery was consulted. Of note, patient had had a previous sustained bowel obstruction after he had initial surgery for cecal cancer on February 01, 2016 and had surgery at [facility] on March 04, 2016 which demonstrated abdominal mental status that he had extensive lysis of intra-abdominal adhesions with release of small bowel obstruction. He also had a right nephro-ureterectomy and distal resection of the colon along with resection of serosal implants and part of the right psoas muscles was thought to be metastatic implants. He had had colonoscopy on November 27, 2017 was found to have healthy ileocolic and healthy-appearing colocolic anastomosis. He was started on TPN on account of severe malnutrition. Patient had laparoscopic converted to open exploratory laparotomy with extensive lysis of adhesions and repair of single enterotomy and small bowel resection on 09/08/2018. He had a PEG tube left in place to drain abdominal fluid. Patient was gradually transitioned to clear liquids and tolerated Ensure. PEG tube initially drained copious amounts of bilious fluid bolus this tapered off and was eventually clamped. Patient remained on TPN on account of severe malnutrition. He was scheduled to go to an LTAC or group home facility for rehab on account of his severe debility and malnutrition. Insurance initially denied LTAC or detention precertification. A peer to peer evaluation was conducted by Dr. Marx with Dr. Buitrago of the insurance company and insurance allowed precertification for detention. Patient was discharged to the detention on postop day 18 on 09/27/2018 on TPN and to continue the clear liquid diet and to transition as tolerated. He is to follow-up with his primary care doctor, general surgery and oncology. Patient seen and examined prior to discharge. He has no complaints. He denied any fever, any chills, any cough or chest pain, any shortness of breath, any abdominal pain, any diarrhea or vomiting. Abdominal Yelena had been taken out a few days prior. 12 point review of systems is otherwise negative. Labs and vitals reviewed. Home medications reviewed and reconciled. o/e: Vital Signs Height 6 ft 4 in Weight: 160 lb 14.999 oz Weight in Pounds 160.9 lbs Pulse Ox 100 Temperature 97.5 F Pulse Rate 77 Respiratory Rate 16 Blood Pressure [BP] 150/84 Blood Pressure 101/57 Blood Pressure Position [BP] Semi-Fowlers Blood Pressure Position Semi-Fowlers [] General: Alert, Oriented x3, Cooperative, No apparent distress HEENT: Atraumatic, PERRLA, EOMI, Normocephalic Oral: Moist Mucosa Neck: Supple, No JVD, Negative Carotid Bruits Lungs: Clear to auscultation, Normal air movement, No rhonchi, No wheeze, No rales Cardiovascular: Regular rate, Regular Rhythm, Normal S1, Normal S2, No murmurs Abdomen: Bowel Sounds Present, Soft, Non Tender, Non-Distended, No Hepato-splenomegaly, - - PEG tube in place; clamped. abdominal incision healing well, yelena removed Extremities: No clubbing, No cyanosis, No edema, Capillary Refill Less than 3 Seconds Skin: No rashes, No breakdown Musculoskeletal: No Tenderness to Palpation of Joints or Extremities Lymphatic: No Cervical, Supraclavicular, or Inguinal Adenopathy Neurological: Cranial nerves II-XII grossly intact, Neuro grossly intact, Motor Exam 5/5 strength throughout Psych/Mental Status: Normal Affect, Appropriate, Alert and oriented to time, place, person, mood and affect Plan as described above. Patient Problems: Active and Suspected Problems Partial small bowel obstruction (Acute) - Physical Exam Vital Signs Temp Pulse Resp BP Pulse Ox 97.5 F L 77 16 96/49 L 98 09/27/18 08:38 09/27/18 08:38 09/27/18 08:38 09/27/18 08:38 09/27/18 08:38 Oxygen Flow Rate (L/min) 2 Oxygen Delivery Method Room Air Weight: 160 lb 14.999 oz Body Mass Index (BMI) 21.8 Intake and Output for Last 24 Hours 09/25/18 09/26/18 09/27/18 23:59 23:59 23:59 Intake Total 2865 / 2865 3916 / 3916 1348 / 1348 Output Total 2503 / 2503 2330 / 2330 1110 / 1110 Balance 362 / 362 1586 / 1586 238 / 238 Discharge Diet: - - clear liquid diet; TPN Discharge Activity: Return to Normal Activity Weight Bearing Status: Weight bearing as tolerated Home Medications: Medications to take at Discharge Ensure Clear 120 ml PO 6X/DAY #60 liquid 09/27/18 Following Prescrptions Were Given to Patient: Ensure Clear 120 ml PO 6X/DAY #60 liquid Primary Care Physician: Selin Fontanez [NON-STAFF] - Please follow up with your Primary Care Physician in: ONE WEEK Please Follow Up With: Anderson Santamaria MD When: 1-2 WEEKS Disposition: Care Home facility Minutes spent on discharge:: 45 Patient Condition:: Stable Medical Necessity - Tobacco Use Smoking Status: Never smoker Meaningful Use Info Meaningful Use Diagnoses (Choose all that apply): None applicable Code Visit Inpatient E&M: 50279 Disch Hosp
[2018-09-27 11:33] VITALS: BP 101/57; PULSE 77; RESP 16; TEMP 36.4; O2SAT 100
--- NOTE | 2018-09-27 14:00 | CASEMGMT ---
Social Work Note HERMILA spoke with Georgina at [facility] who states Dr. Santamaria still needs to call pharmacy to provide script/order for TPN. Georgina provided number Dr. Santamaria has to call [phone]. HERMILA updated Charge Nurse to page Dr. Santamaria to call pharmacy to provide order for TPN. Per Georgina, the only hold up is getting the TPN ordered. Once TPN has been ordered and sent to [facility], pt is able to discharge. Plan: [facility] once Dr. Santamaria calls pharmacy to provide TPN order Adriane Oliva SALES SERVICE PROFESSIONAL, CIRCUIT BREAKER ASSEMBLER
--- NOTE | 2018-09-27 14:41 | NURSING ---
DR SHEN MADE AWARE OF NEED TO CALL/FAX RX TO PHARMACY USED BY [facility] FOR TPN FOR PATIENT DISCHARGE. MD TO CALL ORDER IN.
[2018-09-27 14:44] VITALS: BP 102/54; PULSE 76; RESP 16; TEMP 36.8; O2SAT 97
--- NOTE | 2018-09-27 14:55 | CHAPLAIN ---
Type of Pastoral Visit _x__ Initial Visit ___ Follow-up Visit ___ On-call Visit ___ General Patient Visit ___ Spiritual Assessment ___ Family Conference ___ Bereavement ___ Rapid Response ___ Code Blue ___ Other (describe below) Pastoral Care Referral From ___ Patient ___ Family ___ Nurse ___ Physician ___ Primary Counselor ___ Manager Banquet _x__ Other (describe below) Sacrament/Intervention _x__ Active listening ___ Anointing ___ Yazdanism ___ Bereavement ___ Communion _x__ Yesenia exploration ___ _x__ Life review _x__ Prayer ___ Reconciliation ___ Sacrament of Sick _x__ Supportive presence ___ Wedding ___ Other (describe below) Pastoral Comments patient has been in hospital for 24 days; first time a visit of spiritual care was indicated; pt did not know who might have made the request but said he was very glad that they did; pt wanted to talk about his fears for the future and about spiritual matters; pt does have a uatsdin heritage and spoke of clarification questions about yesenia; pt was tearful at times; much time given to pause and listen to pt; pt has stage four cancer; pt only family is an 88 year old mother; pt said that he does have a couple of good friends but has been a 'loner' by preference for most of his life; pt expects to be transferred to [facility] tomorrow but does welcome future visits of support from general purchasing agent if possible; pt welcomed prayer support
--- NOTE | 2018-09-27 15:30 | CASEMGMT ---
Social Work Note HERMILA received call from Georgina at [facility] stating she received pt's TPN and pt is able to discharge today. HERMILA updated RN, pt and pt's mother. Pt asking about transportation. HERMILA informed pt that pt doesn't necessarily need wheelchair van as pt is ambulating well and pt would receive bill for wheelchair van. Pt's mother states she is able to transport pt. HERMILA faxed completed discharge paperwork to Georgina at [facility] including transfer to extended care facility, signed medication list and any scripts. Originals in SNF folder and copy on pt's chart. HERMILA completed convalescent [facility] in [facility]. Originals in SNF folder and copy on pt's chart. HERMILA placed a call to Georgina at [facility] and informed her that pt will be transported via private family car. Plan: Pt to discharge to [facility] today with family transporting pt Adriane Oliva RADIOLOGICAL TECHNICIAN, SALES ACCOUNT MANAGER
--- NOTE | 2018-09-27 18:25 | PN.SURG_ITS ---
Subjective: bowel movement over night - Physical Exam General: Alert, Oriented x3, Cooperative Lungs: Clear to auscultation, Normal air movement Cardiovascular: Regular rate, Regular Rhythm Abdomen: Bowel Sounds Present, Soft, Non Tender Vital Signs Temp Pulse Resp BP Pulse Ox 98.2 F 76 16 102/54 L 97 09/27/18 14:44 09/27/18 14:44 09/27/18 14:44 09/27/18 14:44 09/27/18 14:44 Oxygen Flow Rate (L/min) 2 Oxygen Delivery Method Room Air Weight: 73 kg Body Mass Index (BMI) 21.8 Intake and Output for Last 24 Hours 09/25/18 09/26/18 09/27/18 23:59 23:59 23:59 Intake Total 2865 / 2865 3916 / 3916 2155 / 2155 Output Total 2503 / 2503 2330 / 2330 1460 / 1460 Balance 362 / 362 1586 / 1586 695 / 695 Medical Necessity - Tobacco Use Smoking Status: Never smoker Assessment/Plan All Active Problems Partial small bowel obstruction (Acute) New onset atrial fibrillation (Resolved) Hypotension (Resolved) 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 Now with small bowel obstruction. noted improved with conservative management. Postoperatively #18 status post laparoscopic converted to exploratory laparotomy with very extensive lysis of adhesions-greater than 2 hours, repair of small bowel enterotomy and segmental small bowel resection due to stricture with compromised bowel noted at area of tightest band. final pathology demonstrates no recurrent malignancy. patient tolerated for cans of ensure clear yesterday without nausea and had no residual output from the PEG tube. We'll continue to have PEG tube clamped and encourage up to 6 cans of ensure per day. We'll record total oral caloric intake. Patient clinically deconditioned and considerable malnutrition. Even if tolerating liquids anticipate he will need SNF placement for continued TPN and reconditioning. patient initially declined from insurance standpoint. Called to arrange peer to peer discussion. [employer] scheduled this appointment for Thursday at 3:30. - discussed with Dr. Buitrago who approved SNF placement secondary to need for TPN, G tube site care, patient anxiety and need to monitor I's & O's as refeeding starts, along with patient malnutrition. Calorie counts given his overall clinical status of protein wasting and failure for quick resolution - on TPN. To SNF today.
--- OUTSIDE RECORDS SUMMARY | 2018-12-08 07:18 | XMS RPT_ITS ---
:1955 Author Organization [place] Support Name Relationship Address Phone REED HER Unavailable Unavailable + R Unavailable Unavailable Unavailable GORDON PEACOCKS Unavailable [address] + [address] [place] [address] REED HER Unavailable Unavailable + R Unavailable Unavailable Unavailable AYUSH, MINNIE Unavailable [address] + [address] [place] [address] REED HER Unavailable Unavailable + R Unavailable Unavailable Unavailable AYUSH MINNIE Unavailable [address] + [address] [place] [address] REED HER Unavailable Unavailable + R Unavailable Unavailable Unavailable TYLER PEACOCKDYS Unavailable [address] + [address] [place] [address] REED HER Unavailable Unavailable + R Unavailable Unavailable Unavailable AYUSH MINNIE Unavailable [address] + [address] [place] [address] REED HER Unavailable Unavailable + R Unavailable Unavailable Unavailable AYUSH MINNIE Unavailable [address] + [address] [place] [address] REED HER Unavailable Unavailable + R Unavailable Unavailable Unavailable AYUSH, MINNIE Unavailable [address] + [address] [place] [address] REED HER Unavailable Unavailable + R Unavailable Unavailable Unavailable AYUSH MINNIE Unavailable [address] + [address] [place] [address] REED HER Unavailable Unavailable + R Unavailable Unavailable Unavailable AYUSH, MINNIE Unavailable [address] + [address] [place] [address] REED HER Unavailable Unavailable + R Unavailable Unavailable Unavailable AYUSH, MINNIE Unavailable [address] + [address] [place] [address] REED EHR Unavailable Unavailable + R Unavailable Unavailable Unavailable AYUSH, MINNIE Unavailable [address] + [address] [place] [address] REED HER Unavailable Unavailable + R Unavailable Unavailable Unavailable AYUSH, MINNIE Unavailable [address] + [address] [place] [address] REED HER Unavailable Unavailable + R Unavailable Unavailable Unavailable AYUSH, MINNIE Unavailable [address] + [address] [place] [address] REED HER Unavailable Unavailable + R Unavailable Unavailable Unavailable AYUSH, MINNIE Unavailable [address] + [address] [place] [address] REED HER Unavailable Unavailable + R Unavailable Unavailable Unavailable AYUSH, MINNIE Unavailable [address] + [address] [place] [address] REED HER Unavailable Unavailable + R Unavailable Unavailable Unavailable AYUSH, MINNIE Unavailable [address] + [address] [place] [address] REED HER Unavailable Unavailable + R Unavailable Unavailable Unavailable AYUSH, MINNIE Unavailable [address] + [address] [place] [address] REED HER Unavailable Unavailable + R Unavailable Unavailable Unavailable AYUSH, MINNIE Unavailable [address] + [address] [place] [address] REED HER Unavailable Unavailable + R Unavailable Unavailable Unavailable AYUSH, MINNIE Unavailable [address] + [address] [place] [address] REED HER Unavailable Unavailable + R Unavailable Unavailable Unavailable AYUSH, MINNIE Unavailable [address] + [address] [place] [address] REED HER Unavailable Unavailable + R Unavailable Unavailable Unavailable AYUSH, MINNIE Unavailable [address] + [address] [place] [address] REED HER Unavailable Unavailable + R Unavailable Unavailable Unavailable AYUSH, MINNIE Unavailable [address] + [address] [place] [address] REED HER Unavailable Unavailable + R Unavailable Unavailable Unavailable AYUSH, MINNIE Unavailable [address] + [address] [place] [address] REED HER Unavailable Unavailable + R Unavailable Unavailable Unavailable AYUSH, MINNIE Unavailable [address] + [address] [place] [address] REED HER Unavailable Unavailable + R Unavailable Unavailable Unavailable AYUSH, MINNIE Unavailable [address] + [address] [place] [address] REED HER Unavailable Unavailable + R Unavailable Unavailable Unavailable AYUSH, MINNIE Unavailable [address] + [address] [place] [address] REED HER Unavailable Unavailable + R Unavailable Unavailable Unavailable AYUSH, MINNIE Unavailable [address] + [address] [place] [address] REED HER Unavailable Unavailable + R Unavailable Unavailable Unavailable AYUSH, MINNIE Unavailable [address] + [address] [address] Care Team Providers Name Role Phone MASCI, YOHAN Houston Referring Unavailable MASCI, YOHAN Houston Referring Unavailable MASCI, YOHAN Houston Referring Unavailable MASCI, YOHAN Houston Attending Unavailable MASCI, YOHAN Houston Referring Unavailable MASCI, YOHAN Houston Referring Unavailable MASCI, YOHAN Houston Attending Unavailable MASCI, YOHAN Houston Referring Unavailable MASCI, YOHAN Houston Referring Unavailable MASCI, YOHAN Houston Referring Unavailable MASCI, YOHAN Houston Referring Unavailable MASCI, YOHAN Houston Referring Unavailable MASCI, YOHAN Houston Attending Unavailable MASCI, YOHAN Houston Referring Unavailable MASCI, YOHAN Houston Referring Unavailable MASCI, YOHAN Houston Referring Unavailable MASCI, YOHAN Houston Referring Unavailable MASCI, YOHAN Houston Referring Unavailable MASCI, YOHAN Houston Referring Unavailable MASCI, YOHAN Houston Referring Unavailable MARICRUZ, CORY Referring Unavailable MARICRUZ, CORY Attending Unavailable MARICRUZ, CORY Referring Unavailable MARICRUZ, CORY Referring Unavailable MASCI, YOHAN Houston Referring Unavailable MASCI, YOHAN Houston Referring Unavailable MASCI, YOHAN Houston Attending Unavailable MASCI, YOHAN Houston Referring Unavailable MASCI, YOHAN Houston Referring Unavailable MASCI, YOHAN Houston Referring Unavailable MASCI, YOHAN Houston Referring Unavailable MASCI, YOHAN Houston Attending Unavailable MASCI, YOHAN Houston Referring Unavailable MASCI, YOHAN Houston Referring Unavailable MARICRUZ, CORY Attending Unavailable MARICRUZ, CORY Referring Unavailable MARICRUZ, CORY Referring Unavailable MASCI, YOHAN Houston Referring Unavailable MASCI, YOHAN Houston Attending Unavailable MASCI, YOHAN Houston Referring Unavailable MASCI, YOHAN Houston Referring Unavailable MARICRUZ, CORY Attending Unavailable MARICRUZ, CORY Referring Unavailable MARICRUZ, CORY Referring Unavailable MASCI, YOHAN Houston Referring Unavailable MASCI, YOHAN oHuston Referring Unavailable MASCI, YOHAN Houston Attending Unavailable MASCI, YOHAN Houston Referring Unavailable MASCI, YOHAN Houston Referring Unavailable MARICRUZ, CORY Attending Unavailable MARICRUZ, CORY Referring Unavailable MARICRUZ, CORY Referring Unavailable MARICRUZ, CORY Attending Unavailable MASCI, YOHAN Houston Referring Unavailable MASCI, YOHAN Houston Referring Unavailable MASCI, YOHAN Houston Referring Unavailable MASCI, YOHAN Houston Referring Unavailable MASCI, YOHAN Houston Attending Unavailable MASCI, YOHAN Houston Referring Unavailable MASCI, YOHAN Houston Referring Unavailable MASCI, YOHAN Houston Referring Unavailable MASCI, YOHAN Houston Referring Unavailable MASCI, YOHAN Houston Referring Unavailable MASCI, YOHAN Houston Referring Unavailable HINA, SIMON Benites Admitting Unavailable HINA, SIMON Benites Attending Unavailable HINA, SIMON Benites Referring Unavailable MASCI, YOHAN Houston Referring Unavailable MASCI, YOHAN Houston Referring Unavailable MASCI, YOAHN A Referring Unavailable HINA, SIMON Benites Attending Unavailable MASCI, YOHAN Houston Referring Unavailable MASCI, YOHAN A Referring Unavailable MASCI, YOHAN Houston Attending Unavailable MASCI, YOHAN A Referring Unavailable MASCI, YOHAN A Referring Unavailable HINA, SIMON Benites Attending Unavailable MASCI, YOHAN A Referring Unavailable MASCI, YOHAN A Referring Unavailable MASCI, YOHAN A Referring Unavailable MASCI, YOHAN A Referring Unavailable MASCI, YOHAN A Referring Unavailable MASCI, YOHAN A Referring Unavailable MASCI, YOHAN A Referring Unavailable MASCI, YOHAN A Referring Unavailable MASCI, YOHAN A Referring Unavailable MASCI, YOHAN A Referring Unavailable MASCI, YOHAN A Attending Unavailable MASCI, YOHAN A Referring Unavailable MASCI, YOHAN A Referring Unavailable MASCI, YOHAN A Referring Unavailable MASCI, YOHAN A Referring Unavailable MASCI, YOHAN A Referring Unavailable MASCI, YOHAN A Referring Unavailable MASCI, YOHAN A Referring Unavailable MASCI, YOHAN A Referring Unavailable Primay Care Physicia, No Primary Care Unavailable AgyepongJosep Admitting Unavailable AgyepongJosep Referring Unavailable Hina, Simon Consulting Unavailable KoramLisa Attending Unavailable Agyepong, Josep Admitting Unavailable Agyepong, Josep Attending Unavailable AgyepongJosep Referring Unavailable Primay Care Physicia, No Primary Care Unavailable AgyeponJosep bess Consulting Unavailable AgyeponJosep bess Admitting Unavailable Paintsil, [place] Attending Unavailable AgyeponJosep bess Referring Unavailable Primay Care Physicia, No Primary Care Unavailable Hina, Simon Consulting Unavailable Paintsil, [place] Consulting Unavailable AgyeponJosep bess Admitting Unavailable Paintsil, Shelbie Attending Unavailable AgyeponJosep bess Referring Unavailable Primay Care Physicia, No Primary Care Unavailable Hina, Simon Consulting Unavailable Paintsil, [place] Consulting Unavailable AgyepongJosep Admitting Unavailable Rufino, Akira Attending Unavailable AgyepongJosep Referring Unavailable Primay Care Physicia, No Primary Care Unavailable HinaSimon Consulting Unavailable Rufino, Akira Consulting Unavailable AgyepongJosep Admitting Unavailable Rufino, Akira Attending Unavailable AgyepongJosep Referring Unavailable Primay Care Physicia, No Primary Care Unavailable Hina, Simon Consulting Unavailable Rufino, Akira Consulting Unavailable AgyepongJosep Admitting Unavailable Rufino, Akira Attending Unavailable AgyepongJosep Referring Unavailable Primay Care Physicia, No Primary Care Unavailable Hina, Simon Consulting Unavailable Akira Joy Consulting Unavailable Agyepong, Josep Admitting Unavailable Akira Joy Attending Unavailable Agyepong, Josep Referring Unavailable Primay Care Physicia, No Primary Care Unavailable Simon Santamaria Consulting Unavailable Akira Joy Consulting Unavailable Agyepong, Josep Admitting Unavailable Akira Joy Attending Unavailable Agyeponmaria alejandra, Josep Referring Unavailable Primay Care Physicia, No Primary Care Unavailable HinaSimon briseno Consulting Unavailable Akira Joy Consulting Unavailable Agyepong, Josep Admitting Unavailable Akira Joy Attending Unavailable Agyepong, Josep Referring Unavailable Primay Care Physicia, No Primary Care Unavailable HinaSimon briseno Consulting Unavailable Akira Joy Consulting Unavailable Agyepong, Josep Admitting Unavailable Akira Joy Attending Unavailable Agyepong, Josep Referring Unavailable Primay Care Physicia, No Primary Care Unavailable HinaSimon briseno Consulting Unavailable Akira Joy Consulting Unavailable Agyepong, Josep Admitting Unavailable Ashkan Mancia Attending Unavailable Agyeponmaria alejandra, Josep Referring Unavailable Primay Care Physicia, No Primary Care Unavailable HinaSimon briseno Consulting Unavailable Ashkan Mancia Consulting Unavailable Agyepong, Josep Admitting Unavailable Ashkan Mancia Attending Unavailable Agyeangel, Josep Referring Unavailable Primay Care Physicia, No Primary Care Unavailable Hina, Simon Consulting Unavailable Ashkan Mancia Consulting Unavailable Agyeponmaria alejandra, Josep Admitting Unavailable Ashkan Mancia Attending Unavailable Agyeangel, Josep Referring Unavailable Primay Care Physicia, No Primary Care Unavailable HinaSimon briseno Consulting Unavailable Ashkan Mancia Consulting Unavailable Agyepong, Josep Admitting Unavailable Ashkan Mancia Attending Unavailable Agyeangel, Josep Referring Unavailable Primay Care Physicia, No Primary Care Unavailable Simon Santamaria Consulting Unavailable Ashkan Mancia Consulting Unavailable Agyepong, Josep Admitting Unavailable Ashkan Mancia Attending Unavailable Agyeangel, Josep Referring Unavailable Primay Care Physicia, No Primary Care Unavailable HinaSimon briseno Consulting Unavailable Ashkan Mancia Consulting Unavailable Agyepong, Josep Admitting Unavailable Ashkan Mancia Attending Unavailable Agyepong, Josep Referring Unavailable Primay Care Physicia, No Primary Care Unavailable Hina, Simon Consulting Unavailable Ashkan Mancia Consulting Unavailable Agyepong, Josep Admitting Unavailable Ashkan Mancia Attending Unavailable Agyepong, Josep Referring Unavailable Primay Care Physicia, No Primary Care Unavailable Hina, Simon Consulting Unavailable Ashkan Mancia Consulting Unavailable Agyepong, Josep Admitting Unavailable Koram, Lisa Karla Attending Unavailable Agyepong, Josep Referring Unavailable Primay Care Physicia, No Primary Care Unavailable Hina, Simon Consulting Unavailable Koram, Lisa Karla Consulting Unavailable Agyepong, Josep Admitting Unavailable Koram, Lisa Karla Attending Unavailable Agyeponmaria alejandra, Josep Referring Unavailable Primay Care Physicia, No Primary Care Unavailable Hina, Simon Consulting Unavailable Koram, Lisa Karla Consulting Unavailable Agyepong, Josep Admitting Unavailable Koram, Lisa Karla Attending Unavailable Agyeponmaria alejandra, Josep Referring Unavailable Primay Care Physicia, No Primary Care Unavailable Hina, Simon Consulting Unavailable Koram, Lisa Karla Consulting Unavailable Agyepong, Josep Admitting Unavailable Koram, Lisa Karla Attending Unavailable Agyeponmaria alejandra, Josep Referring Unavailable Primay Care Physicia, No Primary Care Unavailable Hina, Simon Consulting Unavailable Koram, Lisa Karla Consulting Unavailable Agyepong, Josep Admitting Unavailable Koram, Lisa Karla Attending Unavailable Agyeponmaria alejandra, Josep Referring Unavailable Primay Care Physicia, No Primary Care Unavailable Hina, Simon Consulting Unavailable Koram, Lisa Karla Consulting Unavailable Agyepong, Josep Admitting Unavailable Koram, Lisa Karla Attending Unavailable Agyepong, Josep Referring Unavailable Primay Care Physicia, No Primary Care Unavailable Hina, Simon Consulting Unavailable Koram, Lisa Karla Consulting Unavailable Agyepong, Josep Admitting Unavailable Koram, Lisa Karla Attending Unavailable Agyeponmaria alejandra, Josep Referring Unavailable Primay Care Physicia, No Primary Care Unavailable Hina, Simon Consulting Unavailable Koram, Lisa Karla Consulting Unavailable Agyepong, Josep Admitting Unavailable Koram, Lisa Karla Attending Unavailable Agyeponmaria alejandra, Josep Referring Unavailable Primay Care Physicia, No Primary Care Unavailable Hina, Simon Consulting Unavailable Koram, Lisa Karla Consulting Unavailable Oren Hogan Attending Unavailable Josep Allen Referring Unavailable Dontae Matthews Attending Unavailable Dontae Matthews Referring Unavailable Primay Care Physicia, No Primary Care Unavailable PROBLEMS PROBLEMS DATE TYPE CONDITION / CODE ATTENDING STATUS SOURCE 09/30/2018 Unknown Z01.818 - Encounter Oren Hogan Active [place] for other [facility] preprocedural Hospital examination / Repository Z01.818(ICD-10) 06/19/2016 Active Malignant neoplasm of NA Active [place] cecum / C18.0(ICD-10) [facility] [place] Repository 05/25/2018 Active Unknown / NA Active [facility] UNK(Unknown) [facility] [place] Repository 06/19/2016 Active Malignant neoplasm of NA Active [facility] colon, unspecified / [facility] C18.9(ICD-10) [place] Repository 06/19/2016 Active 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 / C77.2(ICD-10) 06/19/2017 Active 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 / Repository C78.6(ICD-10) 04/06/2018 Active 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 / [facility] C18.2(ICD-10) [place] Repository 03/26/2018 Active Unspecified fracture NA Active [facility] of left patella, [facility] subsequent encounter [place] for closed fracture Repository with routine healing / S82.002D(ICD-10) 01/13/2018 Active Unspecified fracture NA Active [facility] of right patella, [facility] initial encounter for [place] closed fracture / Repository S82.001A(ICD-10) 12/29/2017 Active Pain in left knee / NA Active [facility] M25.562(ICD-10) [facility] [place] Repository 11/27/2017 Active Encounter for Maya SANTAMARIA screening for SIMON Benites [facility] malignant neoplasm of [place] colon / Repository Z12.11(ICD-10) PROCEDURES PROCEDURES No Procedure Records FoundRESULTS RESULTS CHEST PA AND LATERAL Observed: 10/07/2018 Status: F Source: [place] 3:15 PM [facility] REPOSITORY [facility] Imaging Services [address] [place] [address] Chest PA and Lateral MR#: [id number] Acct: [id number] Name: SIMON PEACOCK Rep #: [id number] : 1955 M 62 From: Blas Cowart DO PCP: Care Physician, No Primary Status: REG CLI Study: Chest PA and Lateral Date of Exam: 10/07/18 Exam# [id number] Ordering Dr: Dontae Matthews MD STUDY: X-RAY CHEST REASON FOR EXAM: Male, 62 years old. Cough. TECHNIQUE: PA and lateral views of the chest. COMPARISON: September 10, 2018. FINDINGS: Stable right jugular Port-A-Cath. The NG tube, present on the prior study, is no longer visualized. The lungs are hyperexpanded. There is no acute infiltrate or mass. There is no demonstrated pleural abnormality. Normal size heart. Normal mediastinum and lovely. Normal visualized pulmonary arteries. Normal visualized aortic arch and descending thoracic aorta. There is straightening of the normal kyphosis of the thoracic spine. Normal visualized ribs, clavicles, and shoulders. There is no demonstrated abnormality of the visualized soft tissue structures of the upper abdomen. RAD/Chest PA and Lateral IMPRESSION: 1. Interval removal of the NG tube seen on the prior study. 2. There is no other major interval change. Electronically Signed: Blas Cowart DO at 16:16 EST Tel [phone], Service support , CC: No Primary Care Physician; Dontae Matthews MD [employer]box Assembler: Signed PROGRESS Observed: 10/06/2018 Status: COMPLETED Source: [place] 5:57 AM [facility]IC [facility] REPOSITORY HNO ID: [id number] Author: Simon Santamaria Service: (none) Author Type: Physician Type: Progress Notes Filed: 10/06/2018 6:05 AM Note Text: FOLLOW UP VISIT - POST OP NAME: Simon Peacock [facility] NO.: [id number] DATE OF SERVICE: 10/05/2018 : 1955 REFERRING PHYSICIAN: Selin Fontanez MD Simon is a patient I am following for a non-resolving small bowel obstruction with a previous history of perforated cecal colon cancer. The patient underwent a laparoscopic right hemicolectomy for what turned out to be a perforated colon cancer in February 01, 2016. Tumor at that time was listed as pT4a, pN1a. He returned 2 months later after he developed a small bowel obstruction. On March 04, 2016, he underwent exploratory laparotomy which demonstrated were felt to be abdominal metastases. He had was also extensive lysis of adhesions release of small bowel hand over right nephroureterectomy with segmental resection of sigmoid colon and partial resection of the psoas muscle. The patient was sent to [facility] I was consulted on September 04, 2018 for a bowel obstruction. With prolonged conservative management, the bowel obstruction failed to resolve. I performed a laparoscopic converted to exploratory laparotomy with segmental bowel resection very extensive lysis of adhesions and repair of one small bowel injury on September 08, 2018. The patient had a prolonged postoperative ileus/early postoperative small bowel obstruction picture. He was maintained on TPN. A PEG tube was placed for decompression on September 17, 2018. The patient had slow return of bowel function. He was discharged to extended care facility on September 27, 2018. He actually did well at the extended care facility and had improvement in his oral intake and was discharged to home on October 01, 2018 The patient currently notes his appetite is improving and stable eat more every day. his appetite has been good. he denies fever, chills or abdominal pain. he does note some minimal incisional discomfort. VITALS: Blood pressure 116/52, pulse 68, temperature 36.7 ?C (98.1 ?F), temperature source Temporal Artery, resp. rate 16, height 193 cm (6' 4), weight 74.8 kg (165 lb). On examination, the patient still appears thin but overall his nutritional status looks to be improving with improved muscle mass. Abdominal exam is a well-healed incision. Left upper quadrant PEG tube placement site. Normoactive bowel sounds Assessment IMPRESSION: Status post extensive lysis of adhesions, segmental resection with prolonged postoperative ileus now slowly improving PLAN: If the patient notes any problems or signs of wound infections, he should contact me immediately. He should return in approximately one month for removal of his PEG tube. Diagnoses: (K56.609) SBO (small bowel obstruction) (HCC) (primary encounter diagnosis) (C18.0) Primary cancer of cecum (HCC) Return to Clinic: The patient is instructed to follow- up with me in 1 month. Simon Santamaria MD CNOV Observed: 10/05/2018 Status: COMPLETED Source: [place] 3:00 PM [facility] REPOSITORY Office Visit ([facility]ENS[facility]) SIMON PEACOCK ([id number]) 1955 M Date Time Provider Department 10/05/18 3:00 PM SIMON SANTAMARIA [facility] During your visit today, we recorded the following information about you: Temperature Pulse Respiration Blood pressure 98.1 degrees 68/minute 16/minute 116/52 Weight Height 74.8 kg 1.93 m Simon Santamaria MD 10/06/2018 6:05 AM Signed FOLLOW UP VISIT - POST OP NAME: Simon Peacock CLINIC NO.: [id number] DATE OF SERVICE: 10/05/2018 : 1955 REFERRING PHYSICIAN: Selin Fontanez MD Simon is a patient I am following for a non-resolving small bowel obstruction with a previous history of perforated cecal colon cancer. The patient underwent a laparoscopic right hemicolectomy for what turned out to be a perforated colon cancer in February 01, 2016. Tumor at that time was listed as pT4a, pN1a. He returned 2 months later after he developed a small bowel obstruction. On March 04, 2016, he underwent exploratory laparotomy which demonstrated were felt to be abdominal metastases. He had was also extensive lysis of adhesions release of small bowel hand over right nephroureterectomy with segmental resection of sigmoid colon and partial resection of the psoas muscle. The patient was sent to [facility] I was consulted on September 04, 2018 for a bowel obstruction. With prolonged conservative management, the bowel obstruction failed to resolve. I performed a laparoscopic converted to exploratory laparotomy with segmental bowel resection very extensive lysis of adhesions and repair of one small bowel injury on September 08, 2018. The patient had a prolonged postoperative ileus/early postoperative small bowel obstruction picture. He was maintained on TPN. A PEG tube was placed for decompression on September 17, 2018. The patient had slow return of bowel function. He was discharged to extended care facility on September 27, 2018. He actually did well at the extended care facility and had improvement in his oral intake and was discharged to home on October 01, 2018 The patient currently notes his appetite is improving and stable eat more every day. his appetite has been good. he denies fever, chills or abdominal pain. he does note some minimal incisional discomfort. VITALS: Blood pressure 116/52, pulse 68, temperature 36.7 ?C (98.1 ?F), temperature source Temporal Artery, resp. rate 16, height 193 cm (6' 4), weight 74.8 kg (165 lb). On examination, the patient still appears thin but overall his nutritional status looks to be improving with improved muscle mass. Abdominal exam is a well-healed incision. Left upper quadrant PEG tube placement site. Normoactive bowel sounds Assessment IMPRESSION: Status post extensive lysis of adhesions, segmental resection with prolonged postoperative ileus now slowly improving PLAN: If the patient notes any problems or signs of wound infections, he should contact me immediately. He should return in approximately one month for removal of his PEG tube. Diagnoses: (K56.609) SBO (small bowel obstruction) (HCC) (primary encounter diagnosis) (C18.0) Primary cancer of cecum (HCC) Return to Clinic: The patient is instructed to follow- up with me in 1 month. 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 Problem List As Of Date 10/05/2018 Noted Resolved Ceruminosis [H61.20] INVALID FOR*09/02/2016 More... 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] INVALID FOR* Dehydration [E86.0] INVALID FOR* CKD (chronic kidney disease) stage 2, GFR 60-89*INVALID FOR* Follow-up and Disposition History Recorded Letter Text Encounter Status:Closed by SIMON SANTAMARIA MD on 10/06/18 DISCHARGE SUMMARY Observed: 09/27/2018 Status: F Source: [place] 1:06 PM [facility] REPOSITORY [facility] Medical Records Department [address] [place] [address] Discharge Summary 09/27/18 1046 MR#: [id number] Acct: [id number] Name: SIMON PEACOCK Rep #: [id number] : 1955 62 From: Lisa Glass MD PCP: Care Physician, No Primary Status: ADM IN Location: [place] [address] Discharge Date and Diagnosis - Problem List Patient Problems: Active and Suspected Problems Partial small bowel obstruction (Acute) Date of Admission: 09/03/18 Date of Discharge: 09/27/18 - Primary Discharge Diagnosis Active and Suspected Problems Partial small bowel obstruction (Acute) - Secondary Discharge Diagnosis Chronic Problems Colon cancer (Chronic) Hospital Course and Treatment Imaging Results: Diagnostic Data Abdomen/Pelvis CT 09/03/18 16:30 IMPRESSION: 1. Findings consistent with a significant partial small bowel obstruction with an abrupt transition in the posterior mid abdomen proximity to prior postsurgical change. There is no other demonstrated obstructing pathology, so this may reflect an adhesion. There is moderate distention of the stomach with gas and undigested food status. No free gas. 2. Mural thickening of the distal esophagus, which may reflect local esophagitis. 3. Prior right nephrectomy. There is mild left renal caliectasis. 4. Prior cholecystectomy. The appendix not visualized. 5. Very small volume free fluid in the posterior pelvic region. 6. Degenerative changes of the spine, including mild rightward subluxation of L3 on L4 and dextroscoliosis centered at L2-3. Electronically Signed: Yunier Gasca MD at 18:32 EST , Service support , Abdomen CT 09/06/18 07:32 IMPRESSION: Stable examination demonstrating small bowel obstruction. Electronically Signed: Moo Trinh MD at 11:00 EST Tel [phone], Service support , Chest X-Ray 09/10/18 14:55 IMPRESSION: NG tube is present the tip is in the stomach. Minimal right middle lobe atelectasis. Right-sided Port-A-Cath tip is in the spur vena cava. Electronically Signed: Christiane Sanderson MD at 19:49 EST Tel , Service support , KUB X-Ray 09/14/18 17:10 IMPRESSION: Enteric tube tip in the stomach. Stable dilated loops of small bowel which likely represent obstruction. Electronically Signed: Colten Benitez, at 17:52 EST Tel , Service support , Abdomen X-Ray 09/22/18 08:00 IMPRESSION: Decreasing dilatation of small bowel since the previous study with findings still suggestive of residual obstruction Electronically Signed: Nissa Nicole MD at 8:43 EST , Service support , general surgery- Dr Santamaria Operations: - - laparoscopic converted to open exploratory laparotomy, extensive lysis of adhesions, repair of enterotomy, small bowel resection Summary of Care Provided: The patient is a 62 year old M with a PMH of colon cancer status post colectomy and chemotherapy and now on immunotherapy with Keytruda. He was admitted with a complaint of sudden onset severe nonradiating diffuse abdominal pain that started the day before his admission. Patient had no aggravating or relieving factors. He also had inability to have bowel movements associated with pain he also had nausea and vomiting. CT of the abdomen and pelvis done in the ED was remarkable for small bowel obstruction. An NG tube was placed and patient was admitted and managed for small bowel obstruction likely due to adhesions from previous surgeries. General surgery was consulted. Of note, patient had had a previous sustained bowel obstruction after he had initial surgery for cecal cancer on February 01, 2016 and had surgery at [facility] on March 04, 2016 which demonstrated abdominal mental status that he had extensive lysis of intra-abdominal adhesions with release of small bowel obstruction. He also had a right nephro-ureterectomy and distal resection of the colon along with resection of serosal implants and part of the right psoas muscles was thought to be metastatic implants. He had had colonoscopy on November 27, 2017 was found to have healthy ileocolic and healthy-appearing colocolic anastomosis. He was started on TPN on account of severe malnutrition. Patient had laparoscopic converted to open exploratory laparotomy with extensive lysis of adhesions and repair of single enterotomy and small bowel resection on 09/08/2018. He had a PEG tube left in place to drain abdominal fluid. Patient was gradually transitioned to clear liquids and tolerated Ensure. PEG tube initially drained copious amounts of bilious fluid bolus this tapered off and was eventually clamped. Patient remained on TPN on account of severe malnutrition. He was scheduled to go to an LTAC or usp facility for rehab on account of his severe debility and malnutrition. Insurance initially denied LTAC or detention precertification. A peer to peer evaluation was conducted by Dr. Marx with Dr. Buitrago of the insurance company and insurance allowed precertification for detention. Patient was discharged to the detention on postop day 18 on 09/27/2018 on TPN and to continue the clear liquid diet and to transition as tolerated. He is to follow- up with his primary care doctor, general surgery and oncology. Patient seen and examined prior to discharge. He has no complaints. He denied any fever, any chills, any cough or chest pain, any shortness of breath, any abdominal pain, any diarrhea or vomiting. Abdominal [place] had been taken out a few days prior. 12 point review of systems is otherwise negative. Labs and vitals reviewed. Home medications reviewed and reconciled. o/e: Vital Signs Height 6 ft 4 in Weight: 160 lb 14.999 oz [] General: Alert, Oriented x3, Cooperative, No apparent distress HEENT: Atraumatic, PERRLA, EOMI, Normocephalic Oral: Moist Mucosa Neck: Supple, No JVD, Negative Carotid Bruits Lungs: Clear to auscultation, Normal air movement, No rhonchi, No wheeze, No rales Cardiovascular: Regular rate, Regular Rhythm, Normal S1, Normal S2, No murmurs Abdomen: Bowel Sounds Present, Soft, Non Tender, Non-Distended, No Hepato-splenomegaly, - - PEG tube in place; clamped. abdominal incision healing well, yelena removed Extremities: No clubbing, No cyanosis, No edema, Capillary Refill Less than 3 Seconds Skin: No rashes, No breakdown Musculoskeletal: No Tenderness to Palpation of Joints or Extremities Lymphatic: No Cervical, Supraclavicular, or Inguinal Adenopathy Neurological: Cranial nerves II-XII grossly intact, Neuro grossly intact, Motor Exam 5/5 strength throughout Psych/Mental Status: Normal Affect, Appropriate, Alert and oriented to time, place, person, mood and affect Plan as described above. Patient Problems: Active and Suspected Problems Partial small bowel obstruction (Acute) - Physical Exam Vital Signs Temp Pulse Resp BP Pulse Ox 97.5 F L 77 16 96/49 L 98 09/27/18 08:38 09/27/18 08:38 09/27/18 08:38 09/27/18 08:38 09/27/18 08:38 Oxygen Flow Rate (L/min) 2 Oxygen Delivery Method Room Air Weight: 160 lb 14.999 oz Body Mass Index (BMI) 21.8 Intake and Output for Last 24 Hours Intake Total 2865 / 2865 3916 / 3916 1348 / 1348 Output Total 2503 / 2503 2330 / 2330 1110 / 1110 Balance 362 / 362 1586 / 1586 238 / 238 Discharge Diet: - - clear liquid diet; TPN Discharge Activity: Return to Normal Activity Weight Bearing Status: Weight bearing as tolerated Home Medications: Medications to take at Discharge Ensure Clear 120 ml PO 6X/DAY #60 liquid 09/27/18 Following Prescrptions Were Given to Patient: Ensure Clear 120 ml PO 6X/DAY #60 liquid Primary Care Physician: Selin Fontanez [NON-STAFF] - Please follow up with your Primary Care Physician in: ONE WEEK Please Follow Up With: Simon Santamaria MD When: 1-2 WEEKS Disposition: Assisted facility Minutes spent on discharge:: 45 Patient Condition:: Stable Medical Necessity - Tobacco Use Smoking Status: Never smoker Meaningful Use Info Meaningful Use Diagnoses (Choose all that apply): None applicable Code Visit Inpatient E AND M: 19808 Disch Hosp 09/27/18 1306 <Electronically signed by Lisa Glass MD> Date Lisa Glass MD Cosigner Signature (if applicable): Date CC: No Primary Care Physician; Selin Fontanez; Lisa Glass MD Signed TRANSFER TO [facility] Observed: 09/27/2018 Status: F Source: [facility] 10:46 AM [facility] REPOSITORY [facility] Medical Records Department [address] [place] [address] Transfer to [facility] Care MR#: [id number] Acct: [id number] Name: SIMON PEACOCK Rep #: [id number] : 1955 62 From: Lisa Glass MD PCP: Care Physician, No Primary Status: ADM IN SIMON PEACOCK (Patient) (Health Ins. Claim No.) (Day of Discharge to Facility) Certification of patient admission REQUIRED AT TIME OF ADMISSION. I CERTIFY THAT POST-HOSPITAL ECF SERVICES ARE REQUIRED TO BE GIVEN ON AN IN-PATIENT BASIS BECAUSE OF THE ABOVE NAMED PATIENT'S NEED FOR GROUP HOME CARE ON A CONTINUING BASIS FOR THE CONDITION(S) FOR WHICH HE/SHE WAS RECEIVING IN-PATIENT HOSPITAL SERVICES PRIOR TO HIS/HER TRANSFER TO THE PENDING SALE TO [facility]. 09/27/18 1046 <Electronically signed by Lisa Glass MD> Date Lisa Glass MD - Diet 09/27/18 06:48 Diet: No Gastric Stimulus/Low Residue Is pt able to select menu?: Yes Diet Comments: NURSING TO GIVE 6 ENSURE CLEARS A DAY - Routine Orders/Code Status Routine Lab Work: CBC, - - CMP WEEKLY - Wound(s) ABD Wound Type: Surgical Incision Dressing Change: PEG TUBE ATTACHED TO FRENCH BAG. left nares Wound Type: Pressure Injury LUQ/PEG Wound Type: Surgical Incision nu heels Wound Type: crack in skin x2 each heel - Therapies Physical Therapy: Eval and Treat Occupational Therapy: Eval and Treat - Allergies/Procedures Done in Hospital Allergies/Adverse Reactions: Allergies No Known Allergies Allergy (Verified 09/03/18 15:59) - Type of Care/Length of Stay Estimated LOS: Convalescent Care Less Than 30 days Type of Care Needed: Skilled Rehab Potential: Fair Prognosis: Fair - Additional Orders/Day of Discharge Day of Discharge: 09/27/18 - Dietary and Speech Recommendations Dietitian Recommendations/Changes: Please resume daily wts. Continue TPN until PO diet or enteral feeding is meeting at least 75% of pt's estimated calorie/protein needs. Will re-evaluate TPN amount pending intake of Ensure Clear as ordered. TPN: rec 2L 5%AA, 20%Dextrose with 250 cc 20%lipids 3x/wk to provide 2000 fidel / 100 gm pro/day. Do not anticipate pt will successfully tolerate enteral tube feeds that will meet estimated nutritional needs given impaired GI function. If enteral feeds to be initiated, rec Vivonex RTF would need to be special ordered. Consult RD for further recommendations as indicated. - Follow Up Care Primary Care Physician: Selin Fontanez [NON-STAFF] - Please follow up with your Primary Care Physician in: ONE WEEK Please Follow Up With: Simon Santamaria MD When: 1-2 WEEKS 09/27/18 1046 <Electronically signed by Lisa Glass MD> Date Lisa Glass MD CC: No Primary Care Physician; Simon Santamaria MD Signed BASIC METABOLIC Collected: 09/25/2018 Status: F Source: [place] PRO[place] (B[place]) 8:15 AM [facility] REPOSITORY TYPE CODE TESTS RESULT OUT OF RANGE REFERENCE UNITS LAB L501.0100 74-106 mg/dL High GLU 127 Result Comment: Fasting Glucose result greater than or equal to 126 mg/dL suggests DIABETES MELLITUS per A.D.A. criteria. Please note revised GLUCOSE reference range effective 2017. LAB L501.1000 7-18 mg/dL High BUN 23 LAB L501.1100 0.70-1.30 mg/dL High CREAT,SERUM 1.36 Result Comment: The validity of the calculated GFR AND GFRAA in patients over 70 years has not been determined. Clinical correlation is essential. LAB L501.1110 >60 mL/min Low EST GFR 56 Result Comment: Non- GFR Calc LAB L501.1115 >60 mL/min Normal EST GFR - AA 68 Result Comment: GFR Calc LAB L501.1255 ml/min Normal Estimated CRCL 57.40 LAB L501.1300 10-20 RATIO Normal BUN/CRE 16.9 LAB L501.2200 8.5-10 mg/dL Normal .1 CA 8.7 LAB L501.5300 136-14 mmol/L Normal 5 NA 139 LAB L501.5600 3.5-5. mmol/L Normal 1 K 4.6 Result Comment: Slight Hemolysis, Result may be falsely increased. LAB L501.5900 98-107 mmol/L Normal CL 106 LAB L501.6100 21.0-32.0 mmol/L Normal CO2 24.0 LAB L501.6200 5-15 Normal 9 GAP Performed By: #### L500.2500 #### [facility] [address] [place], [address] BEDSIDE GLUCOSE Collected: 09/24/2018 Status: F Source: [place] 8:54 PM [facility] REPOSITORY TYPE CODE TESTS RESULT OUT OF REFERENCE UNITS RANGE LAB L501.080 70-110 mg/dL High BEDSIDE GLU 134 Result Comment: MANAGEMENT OF PATIENT CARE PER NURSING PROTOCOL Performed By: #### L501.080 #### [facility] Point of Care [address] [place], [place] [address] BASIC METABOLIC Collected: 09/24/2018 Status: F Source: [place] PRO[place] (BMP) 10:15 AM [facility] REPOSITORY TYPE CODE TESTS RESULT OUT OF RANGE REFERENCE UNITS LAB L501.0100 74-106 mg/dL High GLU 132 Result Comment: Fasting Glucose result greater than or equal to 126 mg/dL suggests DIABETES MELLITUS per A.D.A. criteria. Please note revised GLUCOSE reference range effective 2017. LAB L501.1000 7-18 mg/dL High BUN 25 LAB L501.1100 0.70-1.30 mg/dL High CREAT,SERUM 1.35 Result Comment: The validity of the calculated GFR AND GFRAA in patients over 70 years has not been determined. Clinical correlation is essential. LAB L501.1110 >60 mL/min Low EST GFR 57 Result Comment: Non- GFR Calc LAB L501.1115 >60 mL/min Normal EST GFR - AA 69 Result Comment: GFR Calc LAB L501.1255 ml/min Normal Estimated CRCL 57.83 LAB L501.1300 10-20 RATIO Normal BUN/CRE 18.5 LAB L501.2200 8.5-10 mg/dL Low .1 CA 8.4 LAB L501.5300 136-14 mmol/L Normal 5 NA 140 LAB L501.5600 3.5-5. mmol/L Normal 1 K 3.9 LAB L501.5900 98-107 mmol/L Normal CL 106 LAB L501.6100 21.0-3 mmol/L Normal 2.0 CO2 23.0 LAB L501.6200 5-15 Normal GAP 11 Performed By: #### L500.2500 #### [facility] [address] [place], [place], [address] BEDSIDE GLUCOSE Collected: 09/23/2018 Status: F Source: [place] 9:37 PM [facility] REPOSITORY TYPE CODE TESTS RESULT OUT OF REFERENCE UNITS RANGE LAB L501.080 70-110 mg/dL High BEDSIDE GLU 123 Result Comment: MANAGEMENT OF PATIENT CARE PER NURSING PROTOCOL Performed By: #### L501.080 #### [facility] Point of Care [address] [place], [place] [address] CBC W/DIFF, AUTOMATED Collected: 09/23/2018 Status: F Source: [place] 5:48 AM [facility] REPOSITORY TYPE CODE TESTS RESULT OUT OF RANGE REFERENCE UNITS LAB L100.1000 4.4-11.0 K/mm3 Normal WBC 8.0 LAB L100.1200 4.6-6.2 M/mm3 Low RBC 3.97 LAB L100.1300 13.0-16.5 g/dl Normal HGB 13.0 LAB L100.1400 40-54 % Low HCT 39.9 LAB L100.1500 80-94 fL High MCV 100.5 LAB L100.1600 27.0-32.0 pg High MCH 32.7 LAB L100.1700 32-36 g/gl Normal MCHC 32.6 LAB L100.1810 11.6-14.6 % Normal RDW CV 11.8 LAB L100.1820 35.1-43.9 fl Normal RDW SD 42.6 LAB L100.1900 150-450 K/mm3 High PLT 509 LAB L100.2000 6.2-12.0 fl Normal MPV 9.1 LAB L100.2100 47-70 % High NEUT% 71.9 LAB L100.2200 19-41 % Low LY% 13.1 LAB L100.2300 0-10 % High MONO% 11.5 LAB L100.2400 0-5 % Normal EO% 1.4 LAB L100.2500 0-1 % High BASO% 1.1 LAB L100.2550 0.0-0.9 % High IM GRAN % 1.000 Result Comment: IG% - Immature Granulocytes (promyelocytes, myelocytes and metamyelocytes) > 1% indicates that a LEFT SHIFT is Present. LAB L100.2620 2.0-7.7 X10 3/uL Normal Absolute Neut 5.8 LAB L100.2720 0.83-4.51 X10 3/ul Normal Absolute Lymph 1.05 Performed By: #### L100.0100 #### [facility] [address] [place], [address] COMPREHENSIVE METABOLIC Collected: 09/23/2018 Status: F Source: [place] 5:48 AM [facility] REPOSITORY TYPE CODE TESTS RESULT OUT OF RANGE REFERENCE UNITS LAB L501.0100 74-106 mg/dL High GLU 130 Result Comment: Fasting Glucose result greater than or equal to 126 mg/dL suggests DIABETES MELLITUS per A.D.A. criteria. Please note revised GLUCOSE reference range effective 2017. LAB L501.1000 7-18 mg/dL High BUN 25 LAB L501.1100 0.70-1.30 mg/dL High CREAT,SERUM 1.44 Result Comment: The validity of the calculated GFR AND GFRAA in patients over 70 years has not been determined. Clinical correlation is essential. LAB L501.1110 >60 mL/min Low EST GFR 53 Result Comment: Non- GFR Calc LAB L501.1115 >60 mL/min Normal EST GFR - AA 64 Result Comment: GFR Calc LAB L501.1255 ml/min Normal Estimated CRCL 54.21 LAB L501.1300 10-20 RATIO Normal BUN/CRE 17.4 LAB L501.1500 6.4-8. g/dL Low 2 T PROT 6.3 LAB L501.1800 3.2-5. g/dL Low 0 ALB 2.3 LAB L501.1950 2.2-4. g/dL Normal 2 GLOB 4.0 LAB L501.2000 0.9-2. RATIO Low 4 A/G 0.6 LAB L501.2200 8.5-10 mg/dL Normal .1 CA 8.6 LAB L501.4100 15-37 U/L Low AST 12 LAB L501.4305 45-117 U/L High ALK P 168 LAB L501.4405 16-61 U/L Normal ALT 21 LAB L501.4600 0.20-1 mg/dL Normal .00 T BILI 0.30 LAB L501.5300 136-14 mmol/L Normal 5 NA 138 LAB L501.5600 3.5-5. mmol/L Normal 1 K 4.0 LAB L501.5900 98-107 mmol/L Normal CL 104 LAB L501.6100 21.0-3 mmol/L Normal 2.0 CO2 25.0 LAB L501.6200 5-15 Normal GAP 9 Performed By: #### L500.4050, L501.5000, L501.5200 #### [facility] [address] [place], [address] TRIGLYCERIDES Collected: 09/23/2018 Status: F Source: [place] 5:48 AM [facility] REPOSITORY TYPE CODE TESTS RESULT OUT OF RANGE REFERENCE UNITS LAB L501.5000 mg/dL Normal TRIG 93 Result Comment: The drugs N-Acetylcysteine and Metamizole may falsely depress this assay. Serum Triglycerides Reference Interval Normal <150 mg/dL Borderline high 150 - 199 mg/dL High 200 - 499 mg/dL Very High > or = 500 mg/dL Performed By: #### L500.4050, L501.5000, L501.5200 #### [facility] [address] [place], [address] MAGNESIUM Collected: 09/23/2018 Status: F Source: [place] 5:48 AM [facility] REPOSITORY TYPE CODE TESTS RESULT OUT OF RANGE REFERENCE UNITS LAB L501.5200 1.6-2.6 mg/dL Normal MG 1.9 Performed By: #### L500.4050, L501.5000, L501.5200 #### [facility] [address] [place], [address] BEDSIDE GLUCOSE Collected: 09/23/2018 Status: F Source: [place] 3:54 AM [facility] REPOSITORY TYPE CODE TESTS RESULT OUT OF REFERENCE UNITS RANGE LAB L501.080 70-110 mg/dL High BEDSIDE GLU 137 Result Comment: MANAGEMENT OF PATIENT CARE PER NURSING PROTOCOL Performed By: #### L501.080 #### [facility] Point of Care [address] [place] [address] BEDSIDE GLUCOSE Collected: 09/22/2018 Status: F Source: [place] 10:10 PM [facility] REPOSITORY TYPE CODE TESTS RESULT OUT OF REFERENCE UNITS RANGE LAB L501.080 70-110 mg/dL High BEDSIDE GLU 124 Result Comment: MANAGEMENT OF PATIENT CARE PER NURSING PROTOCOL Performed By: #### L501.080 #### [facility] Point of Care [address] [place] [address] ABD INC DECUB Observed: 09/22/2018 Status: F Source: [place] AND/OR ERECT 7:04 AM [facility] REPOSITORY [facility] Imaging Services [address] [place] [address] Abd Inc Decub and/or Erect MR#: [id number] Acct: [id number] Name: SIMON PEACOCK Lindsay Rep #: [id number] : 1955 M 62 From: Nissa Nicole MD PCP: Care Physician, No Primary Status: ADM IN Study: Abd Inc Decub and/or Erect Date of Exam: 09/22/18 Exam# [id number] Ordering Dr: Simon Santamaria MD STUDY: X-RAY - ABDOMEN/PELVIS REASON FOR EXAM: Male, 62 years old. Small bowel obstruction. TECHNIQUE: AP supine and upright views of the abdomen and pelvis. COMPARISON: Radiographs of the abdomen and pelvis dated September 17, 2018. FINDINGS: Normal visualized lung bases. There is decreased dilatation of bowel since the previous study. There are numerous air fluid levels identified within the small bowel. There is some residual dilatation of small bowel with maximum transverse dimension of approximately 4 cm. There is no demonstrated free abdominal air. Surgical clips are visible in the right upper quadrant. Surgical clips are visible in the right lower quadrant. Surgical skin yelena are visible in the anterior central abdominal wall. A gastrostomy tube is visible in the left upper quadrant. There is no obvious organomegaly or mass. Normal soft tissue structures. There is mild curvature of the lumbar spine with convexity towards the right. There are multilevel degenerative changes of the lumbar spine. RAD/Abd Inc Decub and/or Erect IMPRESSION: Decreasing dilatation of small bowel since the previous study with findings still suggestive of residual obstruction Electronically Signed: Nissa Nicole MD at 8:43 EST , Service support , CC: No Primary Care Physician; Simon Santamaria MD Switchbox Assembler: Signed CBC W/DIFF, AUTOMATED Collected: 09/22/2018 Status: F Source: [place] 5:58 AM [facility] REPOSITORY TYPE CODE TESTS RESULT OUT OF RANGE REFERENCE UNITS LAB L100.1000 4.4-11.0 K/mm3 Normal WBC 8.4 LAB L100.1200 4.6-6.2 M/mm3 Low RBC 4.10 LAB L100.1300 13.0-16.5 g/dl Normal HGB 13.4 LAB L100.1400 40-54 % Normal HCT 41.2 LAB L100.1500 80-94 fL High MCV 100.5 LAB L100.1600 27.0-32.0 pg High MCH 32.7 LAB L100.1700 32-36 g/gl Normal MCHC 32.5 LAB L100.1810 11.6-14.6 % Normal RDW CV 11.8 LAB L100.1820 35.1-43.9 fl Normal RDW SD 42.8 LAB L100.1900 150-450 K/mm3 High PLT 538 LAB L100.2000 6.2-12.0 fl Normal MPV 8.8 LAB L100.2100 47-70 % High NEUT% 73.2 LAB L100.2200 19-41 % Low LY% 12.6 LAB L100.2300 0-10 % High MONO% 10.4 LAB L100.2400 0-5 % Normal EO% 1.3 LAB L100.2500 0-1 % High BASO% 1.2 LAB L100.2550 0.0-0.9 % High IM GRAN % 1.300 Result Comment: IG% - Immature Granulocytes (promyelocytes, myelocytes and metamyelocytes) > 1% indicates that a LEFT SHIFT is Present. LAB L100.2620 2.0-7.7 X10 3/uL Normal Absolute Neut 6.1 LAB L100.2720 0.83-4.51 X10 3/ul Normal Absolute Lymph 1.05 Performed By: #### L100.0100 #### [facility] [place], [address] COMPREHENSIVE METABOLIC Collected: 09/22/2018 Status: F Source: [place] DOCKERY 5:58 AM [facility] REPOSITORY TYPE CODE TESTS RESULT OUT OF RANGE REFERENCE UNITS LAB L501.0100 74-106 mg/dL High GLU 130 Result Comment: Fasting Glucose result greater than or equal to 126 mg/dL suggests DIABETES MELLITUS per A.D.A. criteria. Please note revised GLUCOSE reference range effective 2017. LAB L501.1000 7-18 mg/dL High BUN 27 LAB L501.1100 0.70-1.30 mg/dL High CREAT,SERUM 1.57 Result Comment: The validity of the calculated GFR AND GFRAA in patients over 70 years has not been determined. Clinical correlation is essential. LAB L501.1110 >60 mL/min Low EST GFR 48 Result Comment: Non- GFR Calc LAB L501.1115 >60 mL/min Low EST GFR - AA 58 Result Comment: GFR Calc LAB L501.1255 ml/min Normal Estimated CRCL 49.73 LAB L501.1300 10-20 RATIO Normal BUN/CRE 17.2 LAB L501.1500 6.4-8. g/dL Low 2 T PROT 6.1 LAB L501.1800 3.2-5. g/dL Low 0 ALB 2.3 LAB L501.1950 2.2-4. g/dL Normal 2 GLOB 3.8 LAB L501.2000 0.9-2. RATIO Low 4 A/G 0.6 LAB L501.2200 8.5-10 mg/dL Normal .1 CA 8.6 LAB L501.4100 15-37 U/L Low AST 14 LAB L501.4305 45-117 U/L High ALK P 171 LAB L501.4405 16-61 U/L Normal ALT 19 LAB L501.4600 0.20-1 mg/dL Normal .00 T BILI 0.40 LAB L501.5300 136-14 mmol/L Normal 5 NA 139 LAB L501.5600 3.5-5. mmol/L Normal 1 K 4.7 LAB L501.5900 98-107 mmol/L Normal CL 104 LAB L501.6100 21.0-3 mmol/L Normal 2.0 CO2 28.0 LAB L501.6200 5-15 Normal GAP 7 Performed By: #### L500.4050, L501.5000, L501.5200 #### [facility] [address] [place], [address] TRIGLYCERIDES Collected: 09/22/2018 Status: F Source: [place] 5:58 AM [facility] REPOSITORY TYPE CODE TESTS RESULT OUT OF RANGE REFERENCE UNITS LAB L501.5000 mg/dL Normal TRIG 95 Result Comment: The drugs N-Acetylcysteine and Metamizole may falsely depress this assay. Serum Triglycerides Reference Interval Normal <150 mg/dL Borderline high 150 - 199 mg/dL High 200 - 499 mg/dL Very High > or = 500 mg/dL Performed By: #### L500.4050, L501.5000, L501.5200 #### [facility] [address] [facility] [place], [address] MAGNESIUM Collected: 09/22/2018 Status: F Source: [place] 5:58 AM [facility] REPOSITORY TYPE CODE TESTS RESULT OUT OF RANGE REFERENCE UNITS LAB L501.5200 1.6-2.6 mg/dL Normal MG 2.0 Performed By: #### L500.4050, L501.5000, L501.5200 #### [facility] [address], [address] CBC W/DIFF, AUTOMATED Collected: 09/21/2018 Status: F Source: [place] 6:55 AM [facility] REPOSITORY TYPE CODE TESTS RESULT OUT OF RANGE REFERENCE UNITS LAB L100.1000 4.4-11.0 K/mm3 Normal WBC 8.7 LAB L100.1200 4.6-6.2 M/mm3 Low RBC 4.26 LAB L100.1300 13.0-16.5 g/dl Normal HGB 14.0 LAB L100.1400 40-54 % Normal HCT 42.6 LAB L100.1500 80-94 fL High MCV 100.0 LAB L100.1600 27.0-32.0 pg High MCH 32.9 LAB L100.1700 32-36 g/gl Normal MCHC 32.9 LAB L100.1810 11.6-14.6 % Normal RDW CV 11.8 LAB L100.1820 35.1-43.9 fl Normal RDW SD 42.1 LAB L100.1900 150-450 K/mm3 High PLT 592 LAB L100.2000 6.2-12.0 fl Normal MPV 9.0 LAB L100.2100 47-70 % High NEUT% 76.0 LAB L100.2200 19-41 % Low LY% 12.8 LAB L100.2300 0-10 % Normal MONO% 7.9 LAB L100.2400 0-5 % Normal EO% 1.5 LAB L100.2500 0-1 % Normal BASO% 0.8 LAB L100.2550 0.0-0.9 % High IM GRAN % 1.000 Result Comment: IG% - Immature Granulocytes (promyelocytes, myelocytes and metamyelocytes) > 1% indicates that a LEFT SHIFT is Present. LAB L100.2620 2.0-7.7 X10 3/uL Normal Absolute Neut 6.6 LAB L100.2720 0.83-4.51 X10 3/ul Normal Absolute Lymph 1.12 Performed By: #### L100.0100 #### [facility] [address] [place], [address] COMPREHENSIVE METABOLIC Collected: 09/21/2018 Status: F Source: [facility] 6:55 AM [facility] REPOSITORY TYPE CODE TESTS RESULT OUT OF RANGE REFERENCE UNITS LAB L501.0100 74-106 mg/dL High GLU 114 Result Comment: Fasting Glucose result from 100 to 125 mg/dL suggests IMPAIRED HOMEOSTASIS per A.D.A. criteria. Please note revised GLUCOSE reference range effective 2017. LAB L501.1000 7-18 mg/dL High BUN 26 LAB L501.1100 0.70-1.30 mg/dL High CREAT,SERUM 1.51 Result Comment: The validity of the calculated GFR AND GFRAA in patients over 70 years has not been determined. Clinical correlation is essential. LAB L501.1110 >60 mL/min Low EST GFR 50 Result Comment: Non- GFR Calc LAB L501.1115 >60 mL/min Normal EST GFR - AA 60 Result Comment: GFR Calc LAB L501.1255 ml/min Normal Estimated CRCL 51.70 LAB L501.1300 10-20 RATIO Normal BUN/CRE 17.2 LAB L501.1500 6.4-8. g/dL Normal 2 T PROT 6.7 LAB L501.1800 3.2-5. g/dL Low 0 ALB 2.4 LAB L501.1950 2.2-4. g/dL High 2 GLOB 4.3 LAB L501.2000 0.9-2. RATIO Low 4 A/G 0.6 LAB L501.2200 8.5-10 mg/dL Normal .1 CA 8.9 LAB L501.4100 15-37 U/L Low AST 11 LAB L501.4305 45-117 U/L High ALK P 194 LAB L501.4405 16-61 U/L Normal ALT 22 LAB L501.4600 0.20-1 mg/dL Normal .00 T BILI 0.40 LAB L501.5300 136-14 mmol/L Normal 5 NA 139 LAB L501.5600 3.5-5. mmol/L High 1 K 5.2 LAB L501.5900 98-107 mmol/L Normal CL 103 LAB L501.6100 21.0-3 mmol/L Normal 2.0 CO2 28.0 LAB L501.6200 5-15 Normal GAP 8 Performed By: #### L500.4050, L501.5000, L501.5200 #### [facility] [address] [facility] [facility] [id number] TRIGLYCERIDES Collected: 09/21/2018 Status: F Source: [place] 6:55 AM [facility] REPOSITORY TYPE CODE TESTS RESULT OUT OF RANGE REFERENCE UNITS LAB L501.5000 mg/dL Normal TRIG 95 Result Comment: The drugs N-Acetylcysteine and Metamizole may falsely depress this assay. Serum Triglycerides Reference Interval Normal <150 mg/dL Borderline high 150 - 199 mg/dL High 200 - 499 mg/dL Very High > or = 500 mg/dL Performed By: #### L500.4050, L501.5000, L501.5200 #### [facility] [address] [place], [address] MAGNESIUM Collected: 09/21/2018 Status: F Source: [place] 6:55 AM [facility] REPOSITORY TYPE CODE TESTS RESULT OUT OF RANGE REFERENCE UNITS LAB L501.5200 1.6-2.6 mg/dL Normal MG 2.2 Performed By: #### L500.4050, L501.5000, L501.5200 #### [facility] [address] [place], [address] CBC W/DIFF, AUTOMATED Collected: 09/18/2018 Status: F Source: [place] 6:20 AM [facility] REPOSITORY TYPE CODE TESTS RESULT OUT OF RANGE REFERENCE UNITS LAB L100.1000 4.4-11.0 K/mm3 Normal WBC 9.6 LAB L100.1200 4.6-6.2 M/mm3 Low RBC 4.03 LAB L100.1300 13.0-16.5 g/dl Normal HGB 13.1 LAB L100.1400 40-54 % Normal HCT 40.4 LAB L100.1500 80-94 fL High MCV 100.2 LAB L100.1600 27.0-32.0 pg High MCH 32.5 LAB L100.1700 32-36 g/gl Normal MCHC 32.4 LAB L100.1810 11.6-14.6 % Normal RDW CV 11.9 LAB L100.1820 35.1-43.9 fl Normal RDW SD 43.2 LAB L100.1900 150-450 K/mm3 High PLT 540 LAB L100.2000 6.2-12.0 fl Normal MPV 9.2 LAB L100.2100 47-70 % High NEUT% 75.0 LAB L100.2200 19-41 % Low LY% 11.9 LAB L100.2300 0-10 % Normal MONO% 9.2 LAB L100.2400 0-5 % Normal EO% 2.5 LAB L100.2500 0-1 % Normal BASO% 0.6 LAB L100.2550 0.0-0.9 % Normal IM GRAN % 0.800 Result Comment: IG% - Immature Granulocytes (promyelocytes, myelocytes and metamyelocytes) > 1% indicates that a LEFT SHIFT is Present. LAB L100.2620 2.0-7.7 X10 3/uL Normal Absolute Neut 7.2 LAB L100.2720 0.83-4.51 X10 3/ul Normal Absolute Lymph 1.14 Performed By: #### L100.0100 #### [facility] [address] [place], [address] BASIC METABOLIC Collected: 09/18/2018 Status: F Source: [place] PRO[place] ([place]) 6:20 AM [facility] REPOSITORY TYPE CODE TESTS RESULT OUT OF RANGE REFERENCE UNITS LAB L501.0100 74-106 mg/dL High GLU 136 Result Comment: Fasting Glucose result greater than or equal to 126 mg/dL suggests DIABETES MELLITUS per A.D.A. criteria. Please note revised GLUCOSE reference range effective 2017. LAB L501.1000 7-18 mg/dL High BUN 26 LAB L501.1100 0.70-1.30 mg/dL High CREAT,SERUM 1.33 Result Comment: The validity of the calculated GFR AND GFRAA in patients over 70 years has not been determined. Clinical correlation is essential. LAB L501.1110 >60 mL/min Low EST GFR 58 Result Comment: Non- GFR Calc LAB L501.1115 >60 mL/min Normal EST GFR - AA 70 Result Comment: GFR Calc LAB L501.1255 ml/min Normal Estimated CRCL 58.70 LAB L501.1300 10-20 RATIO Normal BUN/CRE 19.5 LAB L501.2200 8.5-10 mg/dL Low .1 CA 8.4 LAB L501.5300 136-14 mmol/L Normal 5 NA 137 LAB L501.5600 3.5-5. mmol/L Normal 1 K 5.0 LAB L501.5900 98-107 mmol/L Normal CL 103 LAB L501.6100 21.0-3 mmol/L Normal 2.0 CO2 28.0 LAB L501.6200 5-15 Normal GAP 6 Performed By: #### L500.2500, L501.2300, L501.5200 #### [facility] [address] [place], [place], [address] PHOSPHORUS Collected: 09/18/2018 Status: F Source: [place] 6:20 AM [facility] REPOSITORY TYPE CODE TESTS RESULT OUT OF RANGE REFERENCE UNITS LAB L501.2300 2.5-4.9 mg/dL Normal PHOS 3.2 Performed By: #### L500.2500, L501.2300, L501.5200 #### [facility] [address] [place], [address] MAGNESIUM Collected: 09/18/2018 Status: F Source: [place] 6:20 AM [facility] REPOSITORY TYPE CODE TESTS RESULT OUT OF RANGE REFERENCE UNITS LAB L501.5200 1.6-2.6 mg/dL Normal MG 2.2 Performed By: #### L500.2500, L501.2300, L501.5200 #### [facility] [address] [place], [address] PROGRESS Observed: 09/17/2018 Status: COMPLETED Source: [place] 3:42 PM [facility] REPOSITORY HNO ID: [id number] Author: Simon Santamaria Service: (none) Author Type: Physician Type: Progress Notes Filed: 09/17/2018 3:45 PM Note Text: OPERATIVE NOTATION FOR [facility] SURGICAL PROCEDURE. September 17, 2018 Simon Allenz 1955 [id number] male PROCEDURE: EGD WITH PEG TUBE PLACEMENT - [id number] SURGEON: Yo Santamaria M.D. 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 Simon Santamaria MD GASTRIC BIOPSY Observed: 09/17/2018 Status: F Source: [place] 12:45 PM [facility] REPOSITORY Patient: SIMON PEACOCK : 1955 (62/M) Acct Num: [id number] Phys: Lisa Glass MD Unit Num: [id number] Loc: MS3 [id number] Specimen: [id number] Received: 09/17/18 - 1420 Spec Type: Gastric Bx TISSUES 1 TISSUES: Gastric mucous membrane COMMENT The results of immunohistochemistry for Helicobacter pylori will be reported separately ([id number]). GROSS DESCRIPTION Received in fixative is one container labeled with the patient's name and designated antrum biopsy. The specimen consists of one irregular fragment of light alejandro soft tissue that measures 0.3 x 0.2 x 0.1 cm. The specimen is totally submitted in one cassette. / AM:khris 09/17/18 TC:3 CPT: 92580 HEADER OPERATION: Exploratory laparoscopy converted to open exploratory laparoscopy PRE-OP DIAGNOSIS: Small bowel obstruction TISSUE SUBMITTED: Antrum biopsy for H. pylori and path MICROSCOPIC DESCRIPTION Slides are reviewed. MICROSCOPIC DIAGNOSIS Gastric antrum, biopsy: Mild chronic gastritis. See comment. AM:khris 09/20/18 Signed Godwin Nguyen DO 09/20/18 <signature on file> Performed By: #### PGASB #### [facility] [address] [place], [address] IMMUNOHISTOCHEMISTRY Observed: 09/17/2018 Status: F Source: [place] 12:45 PM [facility] REPOSITORY Patient: SIMON PEACOCK : 1955 (62/M) Acct Num: [id number] Phys: Lisa Glass MD Unit Num: [id number] Loc: MS3 TM909-1 Specimen: [id number] Received: 09/20/18 - 1006 Spec Type: IMMUNO TISSUES 1 TISSUES: Stomach, NOS SPECIMEN INFORMATION: Tissue Source: Exploratory laparoscopy Clinical Info: Small bowel obstruction Specimen Number: [id number] CPT code: 05408 METHODOLOGY: Deparaffinized sections of prefer/formalin-fixed tissue or PAP/DQ stained slides are incubated with monoclonal/polyclonal antibodies/oligonucleotide probes. Localization is made via biotin free immunoperoxidase method. Appropriate controls are performed and reacted as expected. Results on target cell population are indicated in the following table: RESULTS: ANTIBODY / CLONE RESULT H Pylori (polyclonal) negative These tests were developed and their performance characteristics determined by [facility]. They may not have been cleared or approved by the U.S. Food and Drug Administration. The FDA has determined that such clearance or approval is not necessary. INTERPRETATION: Antrum biopsy: Negative for Helicobacter pylori organisms. AM:khris 09/20/18 PHYSICIAN AND INSTITUTION [facility] [address] [place], [place] [address] Signed Godwin Nguyen, 09/20/18 <signature on file> Performed By: #### PIMM #### [facility] [address] [place] [address]. [place], [address] OPERATIVE REPORT - Observed: 09/17/2018 Status: F Source: [place] ENDOSCOPY 11:06 AM [facility] REPOSITORY [facility] Medical Records Department [address] [place] [address] Operative Report - Endoscopy MR#: [id number] Acct: [id number] Name: SIMON PEACOCK Rep #: [id number] : 1955 62 From: Simon Santamaria MD PCP: Care Physician, No Primary Status: ADM IN Patient Name: Simon Peacock Procedure Date: 09/17/2018 10:29 AM Date of : 1955 Age: 62 Procedure: Upper GI endoscopy Indications: Nausea with vomiting Providers: Simon Santamaria MD Referring MD: Josep Allen Medicines: Monitored Anesthesia Care Patient Profile: This is a 62 year old male. Refer to note in patient chart for documentation of history and physical. Patient has symptoms. Complications: No immediate complications. Procedure: Pre-Anesthesia Assessment: - Prior to the procedure, a History and Physical was performed, and patient medications and allergies were reviewed. The patient is competent. The risks and benefits of the procedure and the sedation options and risks were discussed with the patient. All questions were answered and informed consent was obtained. Patient identification and proposed procedure were verified by the physician, the nurse and the fitting room maintenance mechanic in the procedure room. Mental Status Examination: alert and oriented. Airway Examination: normal oropharyngeal airway and neck mobility. Respiratory Examination: clear to auscultation. CV Examination: normal. Prophylactic Antibiotics: The patient does not require prophylactic antibiotics. Prior Anticoagulants: The patient has taken no previous anticoagulant or antiplatelet agents. ASA Grade Assessment: III - A patient with severe systemic disease. After reviewing the risks and benefits, the patient was deemed in satisfactory condition to undergo the procedure. The anesthesia plan was to use monitored anesthesia care (MAC). Immediately prior to administration of medications, the patient was re-assessed for adequacy to receive sedatives. The heart rate, respiratory rate, oxygen saturations, blood pressure, adequacy of pulmonary ventilation, and response to care were monitored throughout the procedure. The physical status of the patient was re-assessed after the procedure. After obtaining informed consent, the endoscope was passed under direct vision. Throughout the procedure, the patient's blood pressure, pulse, and oxygen saturations were monitored continuously. The gastroscope was introduced through the mouth, and advanced to the third part of duodenum. The upper GI endoscopy was accomplished without difficulty. The patient tolerated the procedure well. Scope In: 10:45:41 AM Scope Out: 10:58:05 AM Total Procedure Duration Time 0 hours 12 minutes 24 seconds Findings: The in the duodenum was normal. Localized moderate inflammation characterized by adherent blood and erosions was found in the entire examined stomach. Biopsies were taken with a cold forceps for histology. The anterior wall of the stomach was normal. Placement of an externally removable PEG with no T-fasteners was successfully completed. The external bumper was at the 2.5 cm marking on the tube. Impression: - Normal. - Erosive gastritis. Biopsied. - Normal anterior wall of the stomach. - An externally removable PEG placement was successfully completed. Recommendation: - Discharge patient to home. - Continue present medications. Procedure Code(s): --- Professional --- 31337, Esophagogastroduodenoscopy, flexible, transoral; with directed placement of percutaneous gastrostomy tube 08607, Esophagogastroduodenoscopy, flexible, transoral; with biopsy, single or multiple CPT copyright 2017 [employer]. All rights reserved. The codes documented in this report are preliminary and upon digital computer operator review may be revised to meet current compliance requirements. Simon Santamaria MD 09/17/2018 11:05:51 AM This report has been signed electronically. Number of Addenda: 0 Note Initiated On: 09/17/2018 10:29 AM 09/17/18 1106 Date Simon Santamaria MD Cosigner Signature: Date (if indicated) CC: No Primary Care Physician; Josep Allen MD; Ashkan Mancia MD; Simon Santamaria MD Date Dictated: 09/17/18 1029 Date Transcribed: Switchbox Assembler: KHRIS Signed COMPREHENSIVE METABOLIC Collected: 09/17/2018 Status: F Source: [place] 5:30 AM [facility] REPOSITORY TYPE CODE TESTS RESULT OUT OF RANGE REFERENCE UNITS LAB L501.0100 74-106 mg/dL High GLU 160 Result Comment: Fasting Glucose result greater than or equal to 126 mg/dL suggests DIABETES MELLITUS per A.D.A. criteria. Please note revised GLUCOSE reference range effective 2017. LAB L501.1000 7-18 mg/dL High BUN 32 LAB L501.1100 0.70-1.30 mg/dL High CREAT,SERUM 1.51 Result Comment: The validity of the calculated GFR AND GFRAA in patients over 70 years has not been determined. Clinical correlation is essential. LAB L501.1110 >60 mL/min Low EST GFR 50 Result Comment: Non- GFR Calc LAB L501.1115 >60 mL/min Normal EST GFR - AA 60 Result Comment: GFR Calc LAB L501.1255 ml/min Normal Estimated CRCL 51.70 LAB L501.1300 10-20 RATIO High BUN/CRE 21.2 LAB L501.1500 6.4-8. g/dL Normal 2 T PROT 6.8 LAB L501.1800 3.2-5. g/dL Low 0 ALB 2.5 LAB L501.1950 2.2-4. g/dL High 2 GLOB 4.3 LAB L501.2000 0.9-2. RATIO Low 4 A/G 0.6 LAB L501.2200 8.5-10 mg/dL Normal .1 CA 8.9 LAB L501.4100 15-37 U/L Normal AST 23 LAB L501.4305 45-117 U/L High ALK P 260 LAB L501.4405 16-61 U/L Normal ALT 52 LAB L501.4600 0.20-1 mg/dL Normal .00 T BILI 0.60 LAB L501.5300 136-14 mmol/L Normal 5 NA 138 LAB L501.5600 3.5-5. mmol/L Normal 1 K 4.9 LAB L501.5900 98-107 mmol/L Normal CL 103 LAB L501.6100 21.0-3 mmol/L Normal 2.0 CO2 26.0 LAB L501.6200 5-15 Normal GAP 9 Performed By: #### L500.4050, L501.2300, L501.5200, L506.0500 #### [facility] [address] [place], [place], [id number] PHOSPHORUS Collected: 09/17/2018 Status: F Source: [place] 5:30 AM [facility] REPOSITORY TYPE CODE TESTS RESULT OUT OF RANGE REFERENCE UNITS LAB L501.2300 2.5-4.9 mg/dL Normal PHOS 3.3 Performed By: #### L500.4050, L501.2300, L501.5200, L506.0500 #### [facility] [address] [place], [place], [address] MAGNESIUM Collected: 09/17/2018 Status: F Source: [place] 5:30 AM [facility] REPOSITORY TYPE CODE TESTS RESULT OUT OF RANGE REFERENCE UNITS LAB L501.5200 1.6-2.6 mg/dL Normal MG 2.2 Performed By: #### L500.4050, L501.2300, L501.5200, L506.0500 #### [facility] [address] [place], [address] PREALBUMIN Collected: 09/17/2018 Status: F Source: [place] 5:30 AM [facility] REPOSITORY TYPE CODE TESTS RESULT OUT OF REFERENCE UNITS RANGE LAB L506.0500 20.0-40.0 mg/dL Low PREALBUMIN 18.4 Performed By: #### L500.4050, L501.2300, L501.5200, L506.0500 #### [facility] [address] [place], [address] CBC W/DIFF, AUTOMATED Collected: 09/17/2018 Status: F Source: [place] 5:30 AM [facility] REPOSITORY TYPE CODE TESTS RESULT OUT OF RANGE REFERENCE UNITS LAB L100.1000 4.4-11.0 K/mm3 High WBC 13.2 LAB L100.1200 4.6-6.2 M/mm3 Low RBC 4.43 LAB L100.1300 13.0-16.5 g/dl Normal HGB 14.4 LAB L100.1400 40-54 % Normal HCT 43.3 LAB L100.1500 80-94 fL High MCV 97.7 LAB L100.1600 27.0-32.0 pg High MCH 32.5 LAB L100.1700 32-36 g/gl Normal MCHC 33.3 LAB L100.1810 11.6-14.6 % Normal RDW CV 12.2 LAB L100.1820 35.1-43.9 fl Normal RDW SD 43.7 LAB L100.1900 150-450 K/mm3 High PLT 517 LAB L100.2000 6.2-12.0 fl Normal MPV 9.3 LAB L100.2100 47-70 % High NEUT% 86.9 LAB L100.2200 19-41 % Low LY% 6.2 LAB L100.2300 0-10 % Normal MONO% 5.3 LAB L100.2400 0-5 % Normal EO% 0.5 LAB L100.2500 0-1 % Normal BASO% 0.3 LAB L100.2550 0.0-0.9 % Normal IM GRAN % 0.800 Result Comment: IG% - Immature Granulocytes (promyelocytes, myelocytes and metamyelocytes) > 1% indicates that a LEFT SHIFT is Present. LAB L100.2620 2.0-7.7 X10 3/uL High Absolute Neut 11.5 LAB L100.2720 0.83-4.51 X10 3/ul Low Absolute Lymph 0.82 Performed By: #### L100.0100 #### [facility] [address] [place], [address] ABD INC DECUB Observed: 09/17/2018 Status: F Source: [facility] AND[facility] ERECT 12[facility] AM [facility] Imaging Services [address] [place] [address] Abd Inc Decub and/or Erect MR#: [id number] Acct: [id number] Name: SIMON PEACOCK Rep #: [id number] : 1955 M 62 From: Eliu Nice MD PCP: Care Physician, No Primary Status: ADM IN Study: Abd Inc Decub and/or Erect Date of Exam: 09/17/18 Exam# [id number] Ordering Dr: Simon Santamaria MD STUDY: X-RAY - ABDOMEN/PELVIS REASON FOR EXAM: Male, 62 years old. Small bowel obstruction TECHNIQUE: AP supine and upright views of the abdomen and pelvis. COMPARISON: 09/16/2018 FINDINGS: Normal visualized lung bases. Enteric tube has been removed. Midline skin yelena. Right upper and lower quadrant clips. Progressing obstructive bowel gas pattern. Multiple dilated small bowel loops are present throughout the abdomen that now measure up to 7.5 cm in diameter. There is no demonstrated free abdominal air. The visualized liver, spleen and kidneys are grossly normal in size and morphology. Normal soft tissue structures. Normal visualized osseous structures. RAD/Abd Inc Decub and/or Erect IMPRESSION: Progressing obstructive bowel gas pattern. Electronically Signed: Eliu Nice MD at 5:31 EST Tel , Service support , CC: No Primary Care Physician; Simon Santamaria MD Switchbox Assembler: Signed CNOP Observed: 09/17/2018 Status: COMPLETED Source: [place] 12:00 AM [facility] REPOSITORY Operative Note (Enc) (GENSWS) Progress Notes: Simon Santamaria MD 09/17/2018 3:45 PM Signed OPERATIVE NOTATION FOR [facility] SURGICAL PROCEDURE. September 17, 2018 Simon Peacock 1955 [id number] male PROCEDURE: EGD WITH PEG TUBE PLACEMENT - [id number] SURGEON: Yo Santamaria M.D. 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 Simon Santamaria MD Encounter Status:Closed by SIMON SANTAMARIA MD on 09/17/18 BASIC METABOLIC Collected: 09/16/2018 Status: F Source: [place] PROFILE (BMP) 6:02 AM [facility] REPOSITORY TYPE CODE TESTS RESULT OUT OF RANGE REFERENCE UNITS LAB L501.0100 74-106 mg/dL High GLU 133 Result Comment: Fasting Glucose result greater than or equal to 126 mg/dL suggests DIABETES MELLITUS per A.D.A. criteria. Please note revised GLUCOSE reference range effective 2017. LAB L501.1000 7-18 mg/dL High BUN 24 LAB L501.1100 0.70-1.30 mg/dL High CREAT,SERUM 1.31 Result Comment: The validity of the calculated GFR AND GFRAA in patients over 70 years has not been determined. Clinical correlation is essential. LAB L501.1110 >60 mL/min Low EST GFR 59 Result Comment: Non- GFR Calc LAB L501.1115 >60 mL/min Normal EST GFR - AA 71 Result Comment: GFR Calc LAB L501.1255 ml/min Normal Estimated CRCL 66.37 LAB L501.1300 10-20 RATIO Normal BUN/CRE 18.3 LAB L501.2200 8.5-10 mg/dL Normal .1 CA 8.5 LAB L501.5300 136-14 mmol/L Normal 5 NA 139 LAB L501.5600 3.5-5. mmol/L Normal 1 K 4.7 LAB L501.5900 98-107 mmol/L Normal CL 103 LAB L501.6100 21.0-3 mmol/L Normal 2.0 CO2 28.0 LAB L501.6200 5-15 Normal GAP 8 Performed By: #### L500.2500 #### [facility] Laboratory [address] [place], [address] ABD INC DECUB Observed: 09/16/2018 Status: F Source: IGOR AND/OR ERECT 12:00 AM [facility] REPOSITORY [facility] Imaging Services [address] [place] [address] Abd Inc Decub and/or Erect MR#: [id number] Acct: [id number] Name: AYUSHSIMON Lindsay Rep #: [id number] : 1955 M 62 From: Eliu Nice MD PCP: Care Physician, No Primary Status: ADM IN Study: Abd Inc Decub and/or Erect Date of Exam: 09/16/18 Exam# [id number] Ordering Dr: Simon Santamaria MD STUDY: X-RAY - ABDOMEN/PELVIS REASON FOR EXAM: Male, 62 years old. Small bowel obstruction TECHNIQUE: AP supine and upright views of the abdomen and pelvis. COMPARISON: None. FINDINGS: Normal visualized lung bases. Enteric tube tip in the body of the stomach. Drain in the pelvis. Midline skin yelena. Improving obstructive bowel gas pattern. Quantity of small bowel gas has decreased. Loops now measure up to 4.2 cm. Multiple acute air-fluid levels on the upright view. There is no demonstrated free abdominal air. The visualized liver, spleen and kidneys are grossly normal in size and morphology. Normal soft tissue structures. There are diffuse degenerative changes of the visualized lumbar spine. RAD/Abd Inc Decub and/or Erect IMPRESSION: Improving obstructive bowel gas pattern. Quantity of small bowel gas has decreased. Electronically Signed: Eliu Nice MD at 6:58 EST Tel , Service support , CC: No Primary Care Physician; Simon Santamaria MD Switchbox Assembler: Signed BEDSIDE GLUCOSE Collected: 09/15/2018 Status: F Source: IGOR 12:53 PM [facility] REPOSITORY TYPE CODE TESTS RESULT OUT OF REFERENCE UNITS RANGE LAB L501.080 70-110 mg/dL High BEDSIDE GLU 136 Result Comment: MANAGEMENT OF PATIENT CARE PER NURSING PROTOCOL Performed By: #### L501.080 #### [facility] Laboratory Point of Care [address] [place] [address] BEDSIDE GLUCOSE Collected: 09/15/2018 Status: F Source: IGOR 6:07 AM [facility] REPOSITORY TYPE CODE TESTS RESULT OUT OF REFERENCE UNITS RANGE LAB L501.080 70-110 mg/dL High BEDSIDE GLU 126 Result Comment: MANAGEMENT OF PATIENT CARE PER NURSING PROTOCOL Performed By: #### L501.080 #### [facility] Laboratory Point of Care [address] [place] [address] BASIC METABOLIC Collected: 09/15/2018 Status: F Source: IGOR PROFILE (BMP) 5:22 AM [facility] REPOSITORY Order Comment: SPECIMEN OBTAINED FROM LINE DRAW TYPE CODE TESTS RESULT OUT OF RANGE REFERENCE UNITS LAB L501.0100 74-106 mg/dL High GLU 140 Result Comment: Fasting Glucose result greater than or equal to 126 mg/dL suggests DIABETES MELLITUS per A.D.A. criteria. Please note revised GLUCOSE reference range effective 2017. LAB L501.1000 7-18 mg/dL High BUN 24 LAB L501.1100 0.70-1.30 mg/dL Normal CREAT,SERUM 1.26 Result Comment: The validity of the calculated GFR AND GFRAA in patients over 70 years has not been determined. Clinical correlation is essential. LAB L501.1110 >60 mL/min Normal EST GFR 61 Result Comment: Non- GFR Calc LAB L501.1115 >60 mL/min Normal EST GFR - AA 74 Result Comment: GFR Calc LAB L501.1255 ml/min Normal Estimated CRCL 69.00 LAB L501.1300 10-20 RATIO Normal BUN/CRE 19.0 LAB L501.2200 8.5-10 mg/dL Low .1 CA 8.2 LAB L501.5300 136-14 mmol/L Normal 5 NA 140 LAB L501.5600 3.5-5. mmol/L Normal 1 K 4.5 LAB L501.5900 98-107 mmol/L Normal CL 105 LAB L501.6100 21.0-3 mmol/L Normal 2.0 CO2 28.0 LAB L501.6200 5-15 Normal GAP 7 Performed By: #### L500.2500, L500.4050, L501.2300, L501.5200 #### [facility] Laboratory [address] [place], [address] COMPREHENSIVE METABOLIC Collected: 09/15/2018 Status: F Source: [facility] 5:22 AM [facility] REPOSITORY Order Comment: SPECIMEN OBTAINED FROM LINE DRAW TYPE CODE TESTS RESULT OUT OF RANGE REFERENCE UNITS LAB L501.0100 74-106 mg/dL High GLU 140 Result Comment: Fasting Glucose result greater than or equal to 126 mg/dL suggests DIABETES MELLITUS per A.D.A. criteria. Please note revised GLUCOSE reference range effective 2017. LAB L501.1000 7-18 mg/dL High BUN 24 LAB L501.1100 0.70-1.30 mg/dL Normal CREAT,SERUM 1.26 Result Comment: The validity of the calculated GFR AND GFRAA in patients over 70 years has not been determined. Clinical correlation is essential. LAB L501.1110 >60 mL/min Normal EST GFR 61 Result Comment: Non- GFR Calc LAB L501.1115 >60 mL/min Normal EST GFR - AA 74 Result Comment: GFR Calc LAB L501.1255 ml/min Normal Estimated CRCL 69.00 LAB L501.1300 10-20 RATIO Normal BUN/CRE 19.0 LAB L501.2200 8.5-10 mg/dL Low .1 CA 8.2 LAB L501.5300 136-14 mmol/L Normal 5 NA 140 LAB L501.5600 3.5-5. mmol/L Normal 1 K 4.5 LAB L501.5900 98-107 mmol/L Normal CL 105 LAB L501.6100 21.0-3 mmol/L Normal 2.0 CO2 28.0 LAB L501.6200 5-15 Normal GAP 7 LAB L501.1500 6.4-8. g/dL Low 2 T PROT 5.6 LAB L501.1800 3.2-5. g/dL Low 0 ALB 2.0 LAB L501.1950 2.2-4. g/dL Normal 2 GLOB 3.6 LAB L501.2000 0.9-2. RATIO Low 4 A/G 0.6 LAB L501.4100 15-37 U/L Normal AST 25 LAB L501.4305 45-117 U/L High ALK P 202 LAB L501.4405 16-61 U/L Normal ALT 46 LAB L501.4600 0.20-1 mg/dL Normal .00 T BILI 0.50 Performed By: #### L500.2500, L500.4050, L501.2300, L501.5200 #### [facility] Laboratory [address] [facility] [place], [place], [id number] PHOSPHORUS Collected: 09/15/2018 Status: F Source: [place] 5:22 AM [facility] REPOSITORY Order Comment: SPECIMEN OBTAINED FROM LINE DRAW TYPE CODE TESTS RESULT OUT OF RANGE REFERENCE UNITS LAB L501.2300 2.5-4.9 mg/dL Normal PHOS 3.3 Performed By: #### L500.2500, L500.4050, L501.2300, L501.5200 #### [facility] Laboratory [address] [place], [place], [id number] MAGNESIUM Collected: 09/15/2018 Status: F Source: [place] 5:22 AM [facility] REPOSITORY Order Comment: SPECIMEN OBTAINED FROM LINE DRAW TYPE CODE TESTS RESULT OUT OF RANGE REFERENCE UNITS LAB L501.5200 1.6-2.6 mg/dL Normal MG 2.0 Performed By: #### L500.2500, L500.4050, L501.2300, L501.5200 #### [facility] Laboratory [address] [place], [place], [id number] CBC W/DIFF, AUTOMATED Collected: 09/15/2018 Status: F Source: IGOR 5:22 AM [facility] REPOSITORY TYPE CODE TESTS RESULT OUT OF RANGE REFERENCE UNITS LAB L100.1000 4.4-11.0 K/mm3 Normal WBC 10.6 LAB L100.1200 4.6-6.2 M/mm3 Low RBC 4.04 LAB L100.1300 13.0-16.5 g/dl Normal HGB 13.0 LAB L100.1400 40-54 % Low HCT 39.6 LAB L100.1500 80-94 fL High MCV 98.0 LAB L100.1600 27.0-32.0 pg High MCH 32.2 LAB L100.1700 32-36 g/gl Normal MCHC 32.8 LAB L100.1810 11.6-14.6 % Normal RDW CV 12.2 LAB L100.1820 35.1-43.9 fl Normal RDW SD 43.9 LAB L100.1900 150-450 K/mm3 Normal PLT 341 LAB L100.2000 6.2-12.0 fl Normal MPV 9.7 LAB L100.2100 47-70 % High NEUT% 75.2 LAB L100.2200 19-41 % Low LY% 12.6 LAB L100.2300 0-10 % Normal MONO% 8.4 LAB L100.2400 0-5 % Normal EO% 2.2 LAB L100.2500 0-1 % Normal BASO% 0.7 LAB L100.2550 0.0-0.9 % Normal IM GRAN % 0.900 Result Comment: IG% - Immature Granulocytes (promyelocytes, myelocytes and metamyelocytes) > 1% indicates that a LEFT SHIFT is Present. LAB L100.2620 2.0-7.7 X10 3/uL High Absolute Neut 8.0 LAB L100.2720 0.83-4.51 X10 3/ul Normal Absolute Lymph 1.34 Performed By: #### L100.0100 #### [facility] Laboratory [address] [place], [address] BEDSIDE GLUCOSE Collected: 09/15/2018 Status: F Source: IGOR 12:24 AM [facility] REPOSITORY TYPE CODE TESTS RESULT OUT OF REFERENCE UNITS RANGE LAB L501.080 70-110 mg/dL High BEDSIDE GLU 139 Result Comment: MANAGEMENT OF PATIENT CARE PER NURSING PROTOCOL Performed By: #### L501.080 #### [facility] Laboratory Point of Care [address] [place] [address] BEDSIDE GLUCOSE Collected: 09/14/2018 Status: F Source: [place] 6:02 PM [facility] REPOSITORY TYPE CODE TESTS RESULT OUT OF REFERENCE UNITS RANGE LAB L501.080 70-110 mg/dL High BEDSIDE GLU 118 Result Comment: MANAGEMENT OF PATIENT CARE PER NURSING PROTOCOL Performed By: #### L501.080 #### [facility] Laboratory Point of Care [address] [place] [address] ABDOMEN SINGLE VIEW Observed: 09/14/2018 Status: F Source: [place] 5:11 PM [facility] REPOSITORY [facility] Imaging Services [address] [place] [address] Abdomen Single View MR#: [id number] Acct: [id number] Name: SIMON PEACOCK Rep #: [id number] : 1955 M 62 From: Coltne Benitez MD PCP: Care Physician, No Primary Status: ADM IN Study: Abdomen Single View Date of Exam: 09/14/18 Exam# [id number] Ordering Dr: Simon Santamaria MD STUDY: X-RAY - ABDOMEN/PELVIS REASON FOR EXAM: Male, 62 years old. Abdominal pain. TECHNIQUE: 3 supine views of the abdomen COMPARISON: 09/14/2018 at 10:15 AM FINDINGS: There are air-filled dilated loops of small bowel in the abdomen which are stable when compared with the prior exam. There is an enteric tube noted with its tip in the stomach. RAD/Abdomen Single View IMPRESSION: Enteric tube tip in the stomach. Stable dilated loops of small bowel which likely represent obstruction. Electronically Signed: Colten Benitez, at 17:52 EST Tel , Service support , CC: No Primary Care Physician; Simon Santamaria MD Switchbox Assembler: Signed BEDSIDE GLUCOSE Collected: 09/14/2018 Status: F Source: IGOR 11:38 AM [facility] REPOSITORY TYPE CODE TESTS RESULT OUT OF REFERENCE UNITS RANGE LAB L501.080 70-110 mg/dL High BEDSIDE GLU 132 Result Comment: MANAGEMENT OF PATIENT CARE PER NURSING PROTOCOL Performed By: #### L501.080 #### [facility] Laboratory Point of Care [address] [facility] [place] [address] ABDOMEN SINGLE VIEW Observed: 09/14/2018 Status: F Source: IGOR 9:18 AM [facility] REPOSITORY [facility] Imaging Services [address] [place] [address] Abdomen Single View MR#: [id number] Acct: [id number] Name: SIMON PEACOCK Rep #: [id number] : 1955 62 From: Gualberto Boucher DO PCP: Care Physician, No Primary Status: ADM IN Study: Abdomen Single View Date of Exam: 09/14/18 Exam# [id number] Ordering Dr: Simon Santamaria MD STUDY: X-RAY - ABDOMEN/PELVIS REASON FOR EXAM: Male, 62 years old. Small bowel obstruction TECHNIQUE: Two AP supine views of the abdomen and pelvis. COMPARISON: 09/13/2018 FINDINGS: Lung bases are clear. Stable enteric tube in the stomach. Slightly increased gaseous distended loops of small bowel in the left upper quadrant region. Fecal retention in the colon. No evidence of free air. Surgical skin stables are noted. There appears to be a pelvic drain in the right lower quadrant region. RAD/Abdomen Single View IMPRESSION: Increased gaseous distended loops of small bowel in the left upper quadrant Electronically Signed: Gualberto Boucher DO at 11:01 EST Tel , Service support , CC: No Primary Care Physician; Simon Santamaria MD Switchbox Assembler: Signed BEDSIDE GLUCOSE Collected: 09/14/2018 Status: F Source: IGOR 6:25 AM [facility] REPOSITORY TYPE CODE TESTS RESULT OUT OF REFERENCE UNITS RANGE LAB L501.080 70-110 mg/dL High BEDSIDE GLU 120 Result Comment: MANAGEMENT OF PATIENT CARE PER NURSING PROTOCOL Performed By: #### L501.080 #### [facility] Laboratory Point of Care [address] [place], [place] [id number] BASIC METABOLIC Collected: 09/14/2018 Status: F Source: [place] PROFILE (BMP) 5:15 AM [facility] REPOSITORY TYPE CODE TESTS RESULT OUT OF RANGE REFERENCE UNITS LAB L501.0100 74-106 mg/dL High GLU 135 Result Comment: Fasting Glucose result greater than or equal to 126 mg/dL suggests DIABETES MELLITUS per A.D.A. criteria. Please note revised GLUCOSE reference range effective 2017. LAB L501.1000 7-18 mg/dL High BUN 20 LAB L501.1100 0.70-1.30 mg/dL High CREAT,SERUM 1.37 Result Comment: The validity of the calculated GFR AND GFRAA in patients over 70 years has not been determined. Clinical correlation is essential. LAB L501.1110 >60 mL/min Low EST GFR 56 Result Comment: Non- GFR Calc LAB L501.1115 >60 mL/min Normal EST GFR - AA 67 Result Comment: GFR Calc LAB L501.1255 ml/min Normal Estimated CRCL 63.46 LAB L501.1300 10-20 RATIO Normal BUN/CRE 14.6 LAB L501.2200 8.5-10 mg/dL Low .1 CA 8.2 LAB L501.5300 136-14 mmol/L Normal 5 NA 139 LAB L501.5600 3.5-5. mmol/L Normal 1 K 4.1 LAB L501.5900 98-107 mmol/L Normal CL 103 LAB L501.6100 21.0-3 mmol/L Normal 2.0 CO2 28.0 LAB L501.6200 5-15 Normal GAP 8 Performed By: #### L500.2500, L501.2300, L501.5200 #### [facility] Laboratory [address] [place], [address] PHOSPHORUS Collected: 09/14/2018 Status: F Source: IGOR 5:15 AM [facility] REPOSITORY TYPE CODE TESTS RESULT OUT OF RANGE REFERENCE UNITS LAB L501.2300 2.5-4.9 mg/dL Normal PHOS 3.4 Performed By: #### L500.2500, L501.2300, L501.5200 #### [facility] Laboratory [address] [place], [address] MAGNESIUM Collected: 09/14/2018 Status: F Source: IGOR 5:15 AM [facility] REPOSITORY TYPE CODE TESTS RESULT OUT OF RANGE REFERENCE UNITS LAB L501.5200 1.6-2.6 mg/dL Normal MG 2.1 Performed By: #### L500.2500, L501.2300, L501.5200 #### [facility] Laboratory [address] [place], [address] BEDSIDE GLUCOSE Collected: 09/14/2018 Status: F Source: IGOR 12:20 AM [facility] REPOSITORY TYPE CODE TESTS RESULT OUT OF REFERENCE UNITS RANGE LAB L501.080 70-110 mg/dL High BEDSIDE GLU 134 Result Comment: MANAGEMENT OF PATIENT CARE PER NURSING PROTOCOL Performed By: #### L501.080 #### [facility] Laboratory Point of Care [address] [place] [address] BEDSIDE GLUCOSE Collected: 09/13/2018 Status: F Source: IG[place] 5:26 PM [facility] REPOSITORY TYPE CODE TESTS RESULT OUT OF REFERENCE UNITS RANGE LAB L501.080 70-110 mg/dL High BEDSIDE GLU 122 Result Comment: MANAGEMENT OF PATIENT CARE PER NURSING PROTOCOL Performed By: #### L501.080 #### [facility] Laboratory Point of Care [address] [place] [address] BEDSIDE GLUCOSE Collected: 09/13/2018 Status: F Source: IGOR 11:31 AM [facility] REPOSITORY TYPE CODE TESTS RESULT OUT OF RANGE REFERENCE UNITS LAB L501.080 70-110 mg/dL Normal BEDSIDE GLU 106 Result Comment: MANAGEMENT OF PATIENT CARE PER NURSING PROTOCOL Performed By: #### L501.080 #### [facility] Laboratory Point of Care [address] [place] [address] ABD INC DECUB Observed: 09/13/2018 Status: F Source: IGOR AND/OR ERECT 9:17 AM [facility] REPOSITORY [facility] Imaging Services [address] [place] [address] Abd Inc Decub and/or Erect MR#: [id number] Acct: [id number] Name: SIMON PEACOCK Rep #: [id number] : 1955 M 62 From: Sarah Salgado MD PCP: Care Physician, No Primary Status: ADM IN Study: Abd Inc Decub and/or Erect Date of Exam: 09/13/18 Exam# [id number] Ordering Dr: Simon Santamaria MD STUDY: X-RAY - ABDOMEN/PELVIS REASON FOR EXAM: Male, 62 years old. TECHNIQUE: COMPARISON: September 08, 2018 FINDINGS: Normal visualized lung bases. There are a few air-fluid level seen in the left upper quadrant which are in the jejunal loops There is no demonstrated free abdominal air. The visualized liver, spleen and kidneys are grossly normal in size and morphology. There are multiple metallic clips within the abdomen due to previous surgery. NG tube is seen with the tip in the stomach. There is a peritoneal dialysis catheter in place. Normal soft tissue structures. There are multiple hypertrophic degenerative changes and narrowing of the disks in the lumbar spine.. RAD/Abd Inc Decub and/or Erect IMPRESSION: Still noted the multiple air-fluid level within the jejunal loops in the left upper quadrant with minimal improvement since the study of September 08, 2018. Electronically Signed: Sarah Salgado, at 12:06 EST Tel , Service support , CC: No Primary Care Physician; Simon Santamaria MD Switchbox Assembler: Signed BEDSIDE GLUCOSE Collected: 09/13/2018 Status: F Source: IGOR 6:18 AM [facility] REPOSITORY TYPE CODE TESTS RESULT OUT OF REFERENCE UNITS RANGE LAB L501.080 70-110 mg/dL High BEDSIDE GLU 133 Result Comment: MANAGEMENT OF PATIENT CARE PER NURSING PROTOCOL Performed By: #### L501.080 #### [facility] Laboratory Point of Care [address] [place] [address] BEDSIDE GLUCOSE Collected: 09/13/2018 Status: F Source: [place] 12:00 AM [facility] REPOSITORY TYPE CODE TESTS RESULT OUT OF REFERENCE UNITS RANGE LAB L501.080 70-110 mg/dL High BEDSIDE GLU 141 Result Comment: MANAGEMENT OF PATIENT CARE PER NURSING PROTOCOL Performed By: #### L501.080 #### [facility] Laboratory Point of Care [address] [place] [address] BEDSIDE GLUCOSE Collected: 09/12/2018 Status: F Source: [place] 6:12 PM [facility] REPOSITORY TYPE CODE TESTS RESULT OUT OF REFERENCE UNITS RANGE LAB L501.080 70-110 mg/dL High BEDSIDE GLU 140 Result Comment: MANAGEMENT OF PATIENT CARE PER NURSING PROTOCOL Performed By: #### L501.080 #### [facility] Laboratory Point of Care [address] [place] [address] PROGRESS Observed: 09/12/2018 Status: COMPLETED Source: [place] 7:13 AM [facility] REPOSITORY HNO ID: [id number] Author: Simon Santamaria Service: (none) Author Type: Physician Type: Progress Notes Filed: 09/13/2018 9:21 AM Note Text: OPERATIVE NOTATION FOR [facility] SURGICAL PROCEDURE. September 08, 2018 Simon Peacock 1955 [id number] male PROCEDURE: Diagnostic Laparoscopy - 56807, Laparotomy Lysis of Adhesions - 02732 and Laparotomy - Resection of Small Bowel - 51001 SURGEON: Yo Santamaria M.D. FACS SLIVER HANDLER: None DEPT: WQ PROVIDER: [id number] Santamaria MD POS: [id number] DIAGNOSIS: (C18.0) Primary cancer of cecum (HCC) (primary encounter diagnosis) (K56.609) SBO (small bowel obstruction) (HCC) ASA CLASS: 3 - Severe FINDINGS: dense adhesions COMPLICATIONS: None PMHx - PAST MEDICAL HISTORY Diagnosis Date - Cancer of cecum (HCC) 01/2017 COMORBIDITIES - Current Cancer Therapy Post Op Occurrences - None Wound Classification - Clean Contaminated Operative note dictated in the [facility] dictation system. Simon Santamaria MD BEDSIDE GLUCOSE Collected: 09/12/2018 Status: F Source: [place] 6:55 AM [facility] REPOSITORY TYPE CODE TESTS RESULT OUT OF REFERENCE UNITS RANGE LAB L501.080 70-110 mg/dL High BEDSIDE GLU 154 Result Comment: MANAGEMENT OF PATIENT CARE PER NURSING PROTOCOL Performed By: #### L501.080 #### [facility] Laboratory [facility] [place], [place] [address] CBC W/DIFF, AUTOMATED Collected: 09/12/2018 Status: F Source: [place] 6:37 AM [facility] REPOSITORY TYPE CODE TESTS RESULT OUT OF RANGE REFERENCE UNITS LAB L100.1000 4.4-11.0 K/mm3 Normal WBC 7.9 LAB L100.1200 4.6-6.2 M/mm3 Low RBC 4.25 LAB L100.1300 13.0-16.5 g/dl Normal HGB 13.7 LAB L100.1400 40-54 % Normal HCT 41.1 LAB L100.1500 80-94 fL High MCV 96.7 LAB L100.1600 27.0-32.0 pg High MCH 32.2 LAB L100.1700 32-36 g/gl Normal MCHC 33.3 LAB L100.1810 11.6-14.6 % Normal RDW CV 12.1 LAB L100.1820 35.1-43.9 fl Normal RDW SD 43.1 LAB L100.1900 150-450 K/mm3 Normal PLT 220 LAB L100.2000 6.2-12.0 fl Normal MPV 9.7 LAB L100.2100 47-70 % High NEUT% 74.2 LAB L100.2200 19-41 % Low LY% 8.7 LAB L100.2300 0-10 % High MONO% 14.1 LAB L100.2400 0-5 % Normal EO% 2.2 LAB L100.2500 0-1 % Normal BASO% 0.4 LAB L100.2550 0.0-0.9 % Normal IM GRAN % 0.400 Result Comment: IG% - Immature Granulocytes (promyelocytes, myelocytes and metamyelocytes) > 1% indicates that a LEFT SHIFT is Present. LAB L100.2620 2.0-7.7 X10 3/uL Normal Absolute Neut 5.8 LAB L100.2720 0.83-4.51 X10 3/ul Low Absolute Lymph 0.68 Performed By: #### L100.0100 #### [facility] Laboratory [address] [place], [address] BASIC METABOLIC Collected: 09/12/2018 Status: F Source: [place] PROFILE (BMP) 6:37 AM [facility] REPOSITORY TYPE CODE TESTS RESULT OUT OF RANGE REFERENCE UNITS LAB L501.0100 74-106 mg/dL High GLU 150 Result Comment: Fasting Glucose result greater than or equal to 126 mg/dL suggests DIABETES MELLITUS per A.D.A. criteria. Please note revised GLUCOSE reference range effective 2017. LAB L501.1000 7-18 mg/dL High BUN 20 LAB L501.1100 0.70-1.30 mg/dL Normal CREAT,SERUM 1.13 Result Comment: The validity of the calculated GFR AND GFRAA in patients over 70 years has not been determined. Clinical correlation is essential. LAB L501.1110 >60 mL/min Normal EST GFR 70 Result Comment: Non- GFR Calc LAB L501.1115 >60 mL/min Normal EST GFR - AA 84 Result Comment: GFR Calc LAB L501.1255 ml/min Normal Estimated CRCL 76.94 LAB L501.1300 10-20 RATIO Normal BUN/CRE 17.7 LAB L501.2200 8.5-10 mg/dL Low .1 CA 8.0 LAB L501.5300 136-14 mmol/L Low 5 NA 135 LAB L501.5600 3.5-5. mmol/L Normal 1 K 3.9 LAB L501.5900 98-107 mmol/L Normal CL 104 LAB L501.6100 21.0-3 mmol/L Normal 2.0 CO2 23.0 LAB L501.6200 5-15 Normal GAP 8 Performed By: #### L500.2500 #### [facility] Laboratory [address] [place], [place], [address] BEDSIDE GLUCOSE Collected: 09/12/2018 Status: F Source: [place] 12:03 AM [facility] REPOSITORY TYPE CODE TESTS RESULT OUT OF REFERENCE UNITS RANGE LAB L501.080 70-110 mg/dL High BEDSIDE GLU 155 Result Comment: MANAGEMENT OF PATIENT CARE PER NURSING PROTOCOL Performed By: #### L501.080 #### [facility] Laboratory Point of Care [address] [place], [place] [address] BEDSIDE GLUCOSE Collected: 09/11/2018 Status: F Source: [place] 6:21 PM [facility] REPOSITORY TYPE CODE TESTS RESULT OUT OF REFERENCE UNITS RANGE LAB L501.080 70-110 mg/dL High BEDSIDE GLU 146 Result Comment: MANAGEMENT OF PATIENT CARE PER NURSING PROTOCOL Performed By: #### L501.080 #### [facility] Laboratory Point of Care [address] [place], [place] [address] BEDSIDE GLUCOSE Collected: 09/11/2018 Status: F Source: [place] 12:08 PM [facility] REPOSITORY TYPE CODE TESTS RESULT OUT OF REFERENCE UNITS RANGE LAB L501.080 70-110 mg/dL High BEDSIDE GLU 149 Result Comment: MANAGEMENT OF PATIENT CARE PER NURSING PROTOCOL Performed By: #### L501.080 #### [facility] Laboratory Point of Care [address] [place] [address] CBC W/DIFF, AUTOMATED Collected: 09/11/2018 Status: F Source: [place] 6:55 AM [facility] REPOSITORY TYPE CODE TESTS RESULT OUT OF RANGE REFERENCE UNITS LAB L100.1000 4.4-11.0 K/mm3 Normal WBC 7.1 LAB L100.1200 4.6-6.2 M/mm3 Low RBC 4.00 LAB L100.1300 13.0-16.5 g/dl Normal HGB 13.1 LAB L100.1400 40-54 % Low HCT 39.7 LAB L100.1500 80-94 fL High MCV 99.3 LAB L100.1600 27.0-32.0 pg High MCH 32.8 LAB L100.1700 32-36 g/gl Normal MCHC 33.0 LAB L100.1810 11.6-14.6 % Normal RDW CV 11.6 LAB L100.1820 35.1-43.9 fl Normal RDW SD 41.7 LAB L100.1900 150-450 K/mm3 Normal PLT 200 LAB L100.2000 6.2-12.0 fl Normal MPV 9.9 LAB L100.2100 47-70 % High NEUT% 73.7 LAB L100.2200 19-41 % Low LY% 8.0 LAB L100.2300 0-10 % High MONO% 14.7 LAB L100.2400 0-5 % Normal EO% 1.7 LAB L100.2500 0-1 % Normal BASO% 0.6 LAB L100.2550 0.0-0.9 % High IM GRAN % 1.300 Result Comment: IG% - Immature Granulocytes (promyelocytes, myelocytes and metamyelocytes) > 1% indicates that a LEFT SHIFT is Present. LAB L100.2620 2.0-7.7 X10 3/uL Normal Absolute Neut 5.3 LAB L100.2720 0.83-4.51 X10 3/ul Low Absolute Lymph 0.57 Performed By: #### L100.0100 #### [facility] [place], [address] BASIC METABOLIC Collected: 09/11/2018 Status: F Source: [place] PROFILE ([facility]) 6:55 AM [facility] REPOSITORY TYPE CODE TESTS RESULT OUT OF RANGE REFERENCE UNITS LAB L501.0100 74-106 mg/dL High GLU 130 Result Comment: Fasting Glucose result greater than or equal to 126 mg/dL suggests DIABETES MELLITUS per A.D.A. criteria. Please note revised GLUCOSE reference range effective 2017. LAB L501.1000 7-18 mg/dL High BUN 20 LAB L501.1100 0.70-1.30 mg/dL High CREAT,SERUM 1.48 Result Comment: The validity of the calculated GFR AND GFRAA in patients over 70 years has not been determined. Clinical correlation is essential. LAB L501.1110 >60 mL/min Low EST GFR 51 Result Comment: Non- GFR Calc LAB L501.1115 >60 mL/min Normal EST GFR - AA 62 Result Comment: GFR Calc LAB L501.1255 ml/min Normal Estimated CRCL 58.75 LAB L501.1300 10-20 RATIO Normal BUN/CRE 13.5 LAB L501.2200 8.5-10 mg/dL Low .1 CA 7.9 LAB L501.5300 136-14 mmol/L Normal 5 NA 136 LAB L501.5600 3.5-5. mmol/L Normal 1 K 3.9 LAB L501.5900 98-107 mmol/L Normal CL 100 LAB L501.6100 21.0-3 mmol/L Normal 2.0 CO2 28.0 LAB L501.6200 5-15 Normal GAP 8 Performed By: #### L500.2500, L501.5200 #### [facility] [address] [place], [address] MAGNESIUM Collected: 09/11/2018 Status: F Source: [place] 6:55 AM [facility] REPOSITORY TYPE CODE TESTS RESULT OUT OF RANGE REFERENCE UNITS LAB L501.5200 1.6-2.6 mg/dL Normal MG 1.9 Performed By: #### L500.2500, L501.5200 #### [facility] [address] [place], [address] BEDSIDE GLUCOSE Collected: 09/11/2018 Status: F Source: [place] 6:16 AM [facility] REPOSITORY TYPE CODE TESTS RESULT OUT OF REFERENCE UNITS RANGE LAB L501.080 70-110 mg/dL High BEDSIDE GLU 146 Result Comment: MANAGEMENT OF PATIENT CARE PER NURSING PROTOCOL Performed By: #### L501.080 #### [facility] Point of Care [address] [facility] [place] [address] BEDSIDE GLUCOSE Collected: 09/11/2018 Status: F Source: [place] 12:43 AM [facility] REPOSITORY TYPE CODE TESTS RESULT OUT OF REFERENCE UNITS RANGE LAB L501.080 70-110 mg/dL High BEDSIDE GLU 125 Result Comment: MANAGEMENT OF PATIENT CARE PER NURSING PROTOCOL Performed By: #### L501.080 #### [facility] Point of Care [address] [place] [address] BEDSIDE GLUCOSE Collected: 09/10/2018 Status: F Source: [place] 6:04 PM [facility] REPOSITORY TYPE CODE TESTS RESULT OUT OF REFERENCE UNITS RANGE LAB L501.080 70-110 mg/dL High BEDSIDE GLU 130 Result Comment: MANAGEMENT OF PATIENT CARE PER NURSING PROTOCOL Performed By: #### L501.080 #### [facility] Point of Care [address] [place] [address] CHEST 1 VIEW Observed: 09/10/2018 Status: F Source: [place] (PORTABLE) 2:29 PM [facility] REPOSITORY [facility] Imaging Services [address] [place] [address] Chest 1 View (Portable) MR#: [id number] Acct: [id number] Name: SIMON PEACOCK Lindsay Rep #: [id number] : 1955 62 From: Christiane Sanderson MD PCP: Care Physician, No Primary Status: ADM IN Study: Chest 1 View (Portable) Date of Exam: 09/10/18 Exam# [id number] Ordering Dr: Akira Joy MD STUDY: X-RAY CHEST REASON FOR EXAM: Male, 62 years old. Shortness of breath dyspnea TECHNIQUE: Single AP portable view of the chest. COMPARISON: None. FINDINGS: There is an NG tube present the tip is in the stomach. There is minimal increased density within the right middle lobe. There is no demonstrated pleural abnormality. There is a right-sided Port-A-Cath tip is in the superior vena cava. Normal size heart. Normal mediastinum and lovely. Normal visualized pulmonary arteries. Normal visualized aortic arch and descending thoracic aorta. Normal visualized thoracic spine. Normal visualized ribs, clavicles, and shoulders. There is no demonstrated abnormality of the visualized soft tissue structures of the upper abdomen. RAD/Chest 1 View (Portable) IMPRESSION: NG tube is present the tip is in the stomach. Minimal right middle lobe atelectasis. Right-sided Port-A-Cath tip is in the spur vena cava. Electronically Signed: Christiane Sanderson MD at 19:49 EST Tel , Service support , CC: No Primary Care Physician; Akira oJy MD Switchbox Assembler: Signed 12 LEAD ELECTROCARDIOGRAM Observed: 09/10/2018 Status: F Source: [place] 2:15 PM [facility] REPOSITORY [facility] Cardiovascular Services [address] [place], [place] [address] [address] 12 Lead EKG 09/08/18 0808 MR#: [id number] Acct: [id number] Name: SIMON PEACOCK Rep #: [id number] : 1955 62 From: Oren Hogan MD Attending Dr: Akira Joy MD Status: ADM IN Ordering Dr: Akira Joy MD Date: 09/08/18 Location: [facility] [place] Sex: M C Admitted: 09/03/18 Test Reason : PRE OP Blood Pressure : / mmHG Vent. Rate : 083 BPM Atrial Rate : 083 BPM P-R Int : 168 ms QRS Dur : 098 ms QT Int : 350 ms P-R-T Axes : 089 060 088 degrees QTc Int : 411 ms Normal sinus rhythm Normal ECG Confirmed by OREN HOGAN MD ([id number]), editor publications MIKALA NICOLE ([id number]) on 09/10/2018 2:15:37 PM Referred By: Josep Allen Confirmed By:OREN HOGAN MD 09/10/18 1415 Date Oren Hogan MD CC: No Primary Care Physician; Josep Allen MD; Akira Joy MD Signed BEDSIDE GLUCOSE Collected: 09/10/2018 Status: F Source: [place] 12:22 PM [facility] REPOSITORY TYPE CODE TESTS RESULT OUT OF REFERENCE UNITS RANGE LAB L501.080 70-110 mg/dL High BEDSIDE GLU 147 Result Comment: MANAGEMENT OF PATIENT CARE PER NURSING PROTOCOL Performed By: #### L501.080 #### [facility] Point of Care [address] [place], [place] [address] BEDSIDE GLUCOSE Collected: 09/10/2018 Status: F Source: [place] 7:08 AM [facility] REPOSITORY TYPE CODE TESTS RESULT OUT OF REFERENCE UNITS RANGE LAB L501.080 70-110 mg/dL High BEDSIDE GLU 158 Result Comment: MANAGEMENT OF PATIENT CARE PER NURSING PROTOCOL Performed By: #### L501.080 #### [facility] Point of Care [address] [facility] [place] [address] CBC W/DIFF, AUTOMATED Collected: 09/10/2018 Status: F Source: [place] 6:30 AM [facility] REPOSITORY TYPE CODE TESTS RESULT OUT OF RANGE REFERENCE UNITS LAB L100.1000 4.4-11.0 K/mm3 Normal WBC 7.6 LAB L100.1200 4.6-6.2 M/mm3 Low RBC 3.99 LAB L100.1300 13.0-16.5 g/dl Normal HGB 13.4 LAB L100.1400 40-54 % Low HCT 39.6 LAB L100.1500 80-94 fL High MCV 99.2 LAB L100.1600 27.0-32.0 pg High MCH 33.6 LAB L100.1700 32-36 g/gl Normal MCHC 33.8 LAB L100.1810 11.6-14.6 % Normal RDW CV 11.8 LAB L100.1820 35.1-43.9 fl Normal RDW SD 42.5 LAB L100.1900 150-450 K/mm3 Normal PLT 178 LAB L100.2000 6.2-12.0 fl Normal MPV 9.4 LAB L100.2100 47-70 % Normal NEUT% 65.7 LAB L100.2200 19-41 % Low LY% 7.4 LAB L100.2300 0-10 % High MONO% 23.4 LAB L100.2400 0-5 % Normal EO% 2.4 LAB L100.2500 0-1 % Normal BASO% 0.4 LAB L100.2550 0.0-0.9 % Normal IM GRAN % 0.700 Result Comment: IG% - Immature Granulocytes (promyelocytes, myelocytes and metamyelocytes) > 1% indicates that a LEFT SHIFT is Present. LAB L100.2620 2.0-7.7 X10 3/uL Normal Absolute Neut 5.0 LAB L100.2720 0.83-4.51 X10 3/ul Low Absolute Lymph 0.56 Performed By: #### L100.0100 #### [facility] [address] [facility], [address] BASIC METABOLIC Collected: 09/10/2018 Status: F Source: [place] PROFILE (BMP) 6:30 AM [facility] REPOSITORY TYPE CODE TESTS RESULT OUT OF RANGE REFERENCE UNITS LAB L501.0100 74-106 mg/dL High GLU 156 Result Comment: Fasting Glucose result greater than or equal to 126 mg/dL suggests DIABETES MELLITUS per A.D.A. criteria. Please note revised GLUCOSE reference range effective 2017. LAB L501.1000 7-18 mg/dL High BUN 24 LAB L501.1100 0.70-1.30 mg/dL High CREAT,SERUM 1.42 Result Comment: The validity of the calculated GFR AND GFRAA in patients over 70 years has not been determined. Clinical correlation is essential. LAB L501.1110 >60 mL/min Low EST GFR 53 Result Comment: Non- GFR Calc LAB L501.1115 >60 mL/min Normal EST GFR - AA 65 Result Comment: GFR Calc LAB L501.1255 ml/min Normal Estimated CRCL 61.23 LAB L501.1300 10-20 RATIO Normal BUN/CRE 16.9 LAB L501.2200 8.5-10 mg/dL Low .1 CA 8.0 LAB L501.5300 136-14 mmol/L Low 5 NA 135 LAB L501.5600 3.5-5. mmol/L Normal 1 K 4.3 LAB L501.5900 98-107 mmol/L Normal CL 103 LAB L501.6100 21.0-3 mmol/L Normal 2.0 CO2 25.0 LAB L501.6200 5-15 Normal GAP 7 Performed By: #### L500.2500 #### [facility] [address] [facility] [place], [address] LIVER PROFILE Collected: 09/10/2018 Status: F Source: [place] 6:30 AM [facility] REPOSITORY TYPE CODE TESTS RESULT OUT OF RANGE REFERENCE UNITS LAB L501.1500 6.4-8.2 g/dL Low T PROT 5.1 LAB L501.1800 3.2-5.0 g/dL Low ALB 2.1 LAB L501.1950 2.2-4.2 g/dL Normal GLOB 3.0 LAB L501.4100 15-37 U/L Low AST 12 LAB L501.4305 45-117 U/L Normal ALK P 63 LAB L501.4405 16-61 U/L Low ALT 13 LAB L501.4600 0.20-1.00 mg/dL Normal T BILI 0.50 LAB L501.4700 0.00-0.30 mg/dL Normal D BILI 0.16 Performed By: #### L500.3400 #### [facility] [address] [place], [address] BEDSIDE GLUCOSE Collected: 09/10/2018 Status: F Source: [place] 12:21 AM [facility] REPOSITORY TYPE CODE TESTS RESULT OUT OF REFERENCE UNITS RANGE LAB L501.080 70-110 mg/dL High BEDSIDE GLU 150 Result Comment: MANAGEMENT OF PATIENT CARE PER NURSING PROTOCOL Performed By: #### L501.080 #### [facility] Point of Care [address] [place] [address] BEDSIDE GLUCOSE Collected: 09/09/2018 Status: F Source: [place] 5:34 PM [facility] REPOSITORY TYPE CODE TESTS RESULT OUT OF REFERENCE UNITS RANGE LAB L501.080 70-110 mg/dL High BEDSIDE GLU 154 Result Comment: MANAGEMENT OF PATIENT CARE PER NURSING PROTOCOL Performed By: #### L501.080 #### [facility] Point of Care [address] [facility] [place] [address] BEDSIDE GLUCOSE Collected: 09/09/2018 Status: F Source: [place] 11:22 AM [facility] REPOSITORY TYPE CODE TESTS RESULT OUT OF REFERENCE UNITS RANGE LAB L501.080 70-110 mg/dL High BEDSIDE GLU 183 Result Comment: MANAGEMENT OF PATIENT CARE PER NURSING PROTOCOL Performed By: #### L501.080 #### [facility] Point of Care [address] [place] [address] CBC W/DIFF, AUTOMATED Collected: 09/09/2018 Status: F Source: [place] 6:40 AM [facility] REPOSITORY TYPE CODE TESTS RESULT OUT OF RANGE REFERENCE UNITS LAB L100.1000 4.4-11.0 K/mm3 Normal WBC 8.0 LAB L100.1200 4.6-6.2 M/mm3 Low RBC 4.54 LAB L100.1300 13.0-16.5 g/dl Normal HGB 15.0 LAB L100.1400 40-54 % Normal HCT 44.2 LAB L100.1500 80-94 fL High MCV 97.4 LAB L100.1600 27.0-32.0 pg High MCH 33.0 LAB L100.1700 32-36 g/gl Normal MCHC 33.9 LAB L100.1810 11.6-14.6 % Normal RDW CV 11.9 LAB L100.1820 35.1-43.9 fl Normal RDW SD 41.5 LAB L100.1900 150-450 K/mm3 Normal PLT 192 LAB L100.2000 6.2-12.0 fl Normal MPV 10.1 LAB L100.2100 47-70 % High NEUT% 71.0 LAB L100.2200 19-41 % Low LY% 7.4 LAB L100.2300 0-10 % High MONO% 20.7 LAB L100.2400 0-5 % Normal EO% 0.1 LAB L100.2500 0-1 % Normal BASO% 0.3 LAB L100.2550 0.0-0.9 % Normal IM GRAN % 0.500 Result Comment: IG% - Immature Granulocytes (promyelocytes, myelocytes and metamyelocytes) > 1% indicates that a LEFT SHIFT is Present. LAB L100.2620 2.0-7.7 X10 3/uL Normal Absolute Neut 5.7 LAB L100.2720 0.83-4.51 X10 3/ul Low Absolute Lymph 0.59 Performed By: #### L100.0100 #### [facility] [address] [place], [address] COMPREHENSIVE METABOLIC Collected: 09/09/2018 Status: F Source: [place] 6:40 AM [facility] REPOSITORY TYPE CODE TESTS RESULT OUT OF RANGE REFERENCE UNITS LAB L501.0100 74-106 mg/dL High GLU 176 Result Comment: Fasting Glucose result greater than or equal to 126 mg/dL suggests DIABETES MELLITUS per A.D.A. criteria. Please note revised GLUCOSE reference range effective 2017. LAB L501.1000 7-18 mg/dL High BUN 25 LAB L501.1100 0.70-1.30 mg/dL High CREAT,SERUM 1.51 Result Comment: The validity of the calculated GFR AND GFRAA in patients over 70 years has not been determined. Clinical correlation is essential. LAB L501.1110 >60 mL/min Low EST GFR 50 Result Comment: Non- GFR Calc LAB L501.1115 >60 mL/min Normal EST GFR - AA 60 Result Comment: GFR Calc LAB L501.1255 ml/min Normal Estimated CRCL 57.58 LAB L501.1300 10-20 RATIO Normal BUN/CRE 16.6 LAB L501.1500 6.4-8. g/dL Low 2 T PROT 5.0 LAB L501.1800 3.2-5. g/dL Low 0 ALB 2.1 LAB L501.1950 2.2-4. g/dL Normal 2 GLOB 2.9 LAB L501.2000 0.9-2. RATIO Low 4 A/G 0.7 LAB L501.2200 8.5-10 mg/dL Low .1 CA 7.8 LAB L501.4100 15-37 U/L Low AST 11 LAB L501.4305 45-117 U/L Normal ALK P 54 LAB L501.4405 16-61 U/L Low ALT 14 LAB L501.4600 0.20-1 mg/dL Normal .00 T BILI 0.40 LAB L501.5300 136-14 mmol/L Normal 5 NA 138 LAB L501.5600 3.5-5. mmol/L Normal 1 K 4.6 LAB L501.5900 98-107 mmol/L Normal CL 107 LAB L501.6100 21.0-3 mmol/L Normal 2.0 CO2 22.0 LAB L501.6200 5-15 Normal GAP 9 Performed By: #### L500.4050, L501.2300, L501.5200 #### [facility] [address] [place], [address] PHOSPHORUS Collected: 09/09/2018 Status: F Source: [place] 6:40 AM [facility] REPOSITORY TYPE CODE TESTS RESULT OUT OF RANGE REFERENCE UNITS LAB L501.2300 2.5-4.9 mg/dL Normal PHOS 2.6 Performed By: #### L500.4050, L501.2300, L501.5200 #### [facility] [address] [place], [address] MAGNESIUM Collected: 09/09/2018 Status: F Source: [place] 6:40 AM [facility] REPOSITORY TYPE CODE TESTS RESULT OUT OF RANGE REFERENCE UNITS LAB L501.5200 1.6-2.6 mg/dL Normal MG 1.7 Performed By: #### L500.4050, L501.2300, L501.5200 #### [facility] [address] [place], [address] BEDSIDE GLUCOSE Collected: 09/09/2018 Status: F Source: [place] 5:34 AM [facility] REPOSITORY TYPE CODE TESTS RESULT OUT OF REFERENCE UNITS RANGE LAB L501.080 70-110 mg/dL High BEDSIDE GLU 183 Result Comment: MANAGEMENT OF PATIENT CARE PER NURSING PROTOCOL Performed By: #### L501.080 #### [facility] Point of Care [address] [place] [address] BEDSIDE GLUCOSE Collected: 09/09/2018 Status: F Source: [place] 12:12 AM [facility] REPOSITORY TYPE CODE TESTS RESULT OUT OF REFERENCE UNITS RANGE LAB L501.080 70-110 mg/dL High BEDSIDE GLU 198 Result Comment: MANAGEMENT OF PATIENT CARE PER NURSING PROTOCOL Performed By: #### L501.080 #### [facility] Point of Care [address] [place] [address] BEDSIDE GLUCOSE Collected: 09/08/2018 Status: F Source: [place] 7:52 PM [facility] REPOSITORY TYPE CODE TESTS RESULT OUT OF REFERENCE UNITS RANGE LAB L501.080 70-110 mg/dL High BEDSIDE GLU 148 Result Comment: MANAGEMENT OF PATIENT CARE PER NURSING PROTOCOL Performed By: #### L501.080 #### [facility] Point of Care [address] [place] [address] OPERATIVE REPORT Observed: 09/08/2018 Status: F Source: [place] 6:59 PM [facility] REPOSITORY [facility] Medical Records Department [address] [place] [address] Operative Report 09/08/18 1719 MR#: [id number] Acct: [id number] Name: SIMON PEACOCK Lindsay Rep #: [id number] : 1955 62 From: Simon Santamaria MD PCP: Care Physician, No Primary Status: ADM IN Location: [place] [address] Report of Operation Date of Procedure: 09/08/18 Pre-Operative Diagnosis: SMALL BOWEL OBSTRUCTION Post-Operative Diagnosis: VERY DENSER ADHESIONS THROUGHOUT. NODULE INTRALOOP NEGATIVE FOR CARCINOMA, TRANSITION WITH CONCERN FOR COMPROMISED BOWEL Surgery/Procedure Performed:: LAPROSCOPIC CONVERTED TO OPEN EXPLORATY LAPAROTOMY, EXTENSIVE LYSIS OF ADHESIONS, REPAIR OF SINGLE ENTEROTOMY, SMALL BOWEL RESECTION Description of Surgical Findings:: ABOVE gut carrier: Daphney Bahena Type of Anesthesia:: General Anesthesiologist: Shiva Aparicio Specimen's removed: nodule for frozen, nodule for permanent, small bowel resection Drains: french - 150, NG, DEBI drain Estimated Blood Loss (mL): 100 Fluids Replaced: 1400 Description of Procedure: The patient was brought to the operating suite. Sign in was performed verifying patient, site, procedure, position, and DVT prophylaxis with SCDs. Patient received 2 g of cefotetan. Following induction of general anesthetic. The patient s abdomen was prepped and draped in the usual fashion. Timeout was performed verifying patient, site, position. Local anesthetic was injected below the umbilicus. Incision made and dissection carried down to the umbilical root fascia. 2 stay sutures were placed. Incision made in the fascia, the peritoneum entered under direct visualization. A 10 mm Wood trocar was inserted and secured with the stay sutures. Pneumoperitoneum to 15 mmHg was insufflated. there were noted to be significant adhesions just below the umbilicus and all along the midline. There was a window noted in the left upper quadrant. An initial 5 and replaced with that in the left upper quadrant. Later 2 additional 5 normal ports were placed in the left lateral and left lower quadrants Visual inspection revealed dense and significant adhesions throughout the entire abdominal cavity with dilated proximal small bowel and collapsed distal small bowel. Laparoscopic lysis of adhesions were undertaken. There were noted to be significant adhesions between the omentum and right abdominal area small bowel and the anterior abdominal wall and then multiple and very dense adhesions between the small bowel and the right lower quadrant the left lower quadrant the sigmoid colon and very dense interloop adhesions. As adhesions were being taken off the midline bowel a small enterotomy was made and this was controlled with a clip to fox the site and prevent leakage. After approximate 45 minutes of lysis of adhesions made the decision to convert to open lysis of adhesions as I could still not easily demonstrated transition point between the dilated and collapsed mid small bowel. Incision was extended above and below the midline Wood trocar site dissection carried down and the fascia opened. At this point the proximal dilated small bowel was noted to have a very dense adhesion with 3 different very tight bands in the mid small bowel with proximal distention and distal collapse. These adhesions were lysed. The patient still had very dense adhesions throughout the abdomen and this required extensive lysis of adhesions approximately one hour of adhesiolysis time. At the conclusion the dilated small bowel from the ligament of Treitz was run down to the transition point where there were 3 tight areas of stricture 1 which seemed somewhat compromised this was then run distally. There were dense interloop adhesions which were ligated. There were nodules between some of the adhesions one nodule was excised and sent for frozen section and this returned as scar tissueof malignancy. An additional nodule was sent for permanent pathology. Once full mobilization of the proximal and distal bowel where my small enterotomy was made was completed the enterotomy was closed in a 2 layer fashion with a running 3-0 Vicryl interrupted 3-0 silk sutures this was noted to be watertight. Again the area of concern at the transition point was examined. The area still looked pale white and was not peristalsing. At this point I like to perform a segmental resection. Harmonic scalpel is used to divide the mesentery. Bowel clamps were applied proximal and distal to the area of concern was divided sharply. A functional stapled end-to-end anastomosis creating an antimesenteric stenosis with a ANTHONY 45 mm stapler 2 firings a silk suture was placed in the apex to take tension off and this was then closed transversely with a TL stapler. The anastomosis was noted to be watertight. At this point the abdominal care was irrigated and aspirated copiously. the nasogastric tube was adjusted and palpated in the stomach for good position. At the conclusion of the case, the NG tube was bridled. A 15 round Eric-Feng drain was placed in the left lower quadrant 5 mm trocar site. Interceed was placed in the right and left pelvic areas to prevent re-adhesions to the sigmoid colon and some was an raw right lower quadrant areas. The omentum was pulled down over the mid small bowel anastomosis and Interceed was placed over the greater omentum to prevent adhesions the midline. Fascia was closed with a running 0 PDS suture. subtenon's tissues irrigated. Skin was closed with yelena. The 15 round Eric-Feng drain was secured with 3-0 nylon suture. The patient was brought to recovery room in stable condition. - Admit VTE Documentation VTE Present on Admission: No VTE Mechan Device Prophylaxis: SCD's 09/08/181858 <Electronically signed by Simon Santamaria MD> Date Simon Santamaria MD CC: No Primary Care Physician; Josep Allen MD; Simon Santamaria MD Signed BEDSIDE GLUCOSE Collected: 09/08/2018 Status: F Source: [place] 11:30 AM [facility] REPOSITORY TYPE CODE TESTS RESULT OUT OF REFERENCE UNITS RANGE LAB L501.080 70-110 mg/dL High BEDSIDE GLU 140 Result Comment: MANAGEMENT OF PATIENT CARE PER NURSING PROTOCOL Performed By: #### L501.080 #### [facility] [place] [address] PARTIAL THROMBOPLAST Collected: 09/08/2018 Status: F Source: [place] TIME 8:10 AM [facility] REPOSITORY TYPE CODE TESTS RESULT OUT OF RANGE REFERENCE UNITS LAB L300.4310 24.1-36.2 Seconds Normal PTT 30.8 Performed By: #### L300.4310 #### [facility] [address] [place], [place], [address] BEDSIDE GLUCOSE Collected: 09/08/2018 Status: F Source: [place] 5:52 AM [facility] REPOSITORY TYPE CODE TESTS RESULT OUT OF REFERENCE UNITS RANGE LAB L501.080 70-110 mg/dL High BEDSIDE GLU 151 Result Comment: MANAGEMENT OF PATIENT CARE PER NURSING PROTOCOL Performed By: #### L501.080 #### [facility] Point of Care [address] [place] [address] CBC W/DIFF, AUTOMATED Collected: 09/08/2018 Status: F Source: [place] 5:46 AM [facility] REPOSITORY TYPE CODE TESTS RESULT OUT OF RANGE REFERENCE UNITS LAB L100.1000 4.4-11.0 K/mm3 Normal WBC 4.4 LAB L100.1200 4.6-6.2 M/mm3 Normal RBC 4.63 LAB L100.1300 13.0-16.5 g/dl Normal HGB 15.3 LAB L100.1400 40-54 % Normal HCT 46.1 LAB L100.1500 80-94 fL High MCV 99.6 LAB L100.1600 27.0-32.0 pg High MCH 33.0 LAB L100.1700 32-36 g/gl Normal MCHC 33.2 LAB L100.1810 11.6-14.6 % Normal RDW CV 11.9 LAB L100.1820 35.1-43.9 fl Normal RDW SD 42.9 LAB L100.1900 150-450 K/mm3 Normal PLT 187 LAB L100.2000 6.2-12.0 fl Normal MPV 9.8 LAB L100.2100 47-70 % Normal NEUT% 49.8 LAB L100.2200 19-41 % Low LY% 14.4 LAB L100.2300 0-10 % High MONO% 31.4 LAB L100.2400 0-5 % Normal EO% 3.0 LAB L100.2500 0-1 % Normal BASO% 0.9 LAB L100.2550 0.0-0.9 % Normal IM GRAN % 0.500 Result Comment: IG% - Immature Granulocytes (promyelocytes, myelocytes and metamyelocytes) > 1% indicates that a LEFT SHIFT is Present. LAB L100.2620 2.0-7.7 X10 3/uL Normal Absolute Neut 2.2 LAB L100.2720 0.83-4.51 X10 3/ul Low Absolute Lymph 0.63 Performed By: #### L100.0100 #### [facility] Laboratory [address] [facility] [place], [address] RENAL PROFILE Collected: 09/08/2018 Status: F Source: IG[place] 5:46 AM [facility] REPOSITORY TYPE CODE TESTS RESULT OUT OF RANGE REFERENCE UNITS LAB L501.0100 74-106 mg/dL High GLU 137 Result Comment: Fasting Glucose result greater than or equal to 126 mg/dL suggests DIABETES MELLITUS per A.D.A. criteria. Please note revised GLUCOSE reference range effective 2017. LAB L501.1000 7-18 mg/dL High BUN 24 LAB L501.1100 0.70-1.30 mg/dL High CREAT,SERUM 1.42 Result Comment: The validity of the calculated GFR AND GFRAA in patients over 70 years has not been determined. Clinical correlation is essential. LAB L501.1110 >60 mL/min Low EST GFR 53 Result Comment: Non- GFR Calc LAB L501.1115 >60 mL/min Normal EST GFR - AA 65 Result Comment: GFR Calc LAB L501.1255 ml/min Normal Estimated CRCL 61.23 LAB L501.1300 10-20 RATIO Normal BUN/CRE 16.9 LAB L501.1800 3.2-5. g/dL Low 0 ALB 3.0 LAB L501.2200 8.5-10 mg/dL Low .1 CA 8.3 LAB L501.2300 2.5-4. mg/dL Normal 9 PHOS 3.0 LAB L501.5300 136-14 mmol/L Normal 5 NA 137 LAB L501.5600 3.5-5. mmol/L Normal 1 K 4.0 LAB L501.5900 98-107 mmol/L Normal CL 103 LAB L501.6100 21.0-3 mmol/L Normal 2.0 CO2 27.0 Performed By: #### L500.3600 #### [facility] Laboratory [address] [place], [address] BEDSIDE GLUCOSE Collected: 09/08/2018 Status: F Source: [place] 12:22 AM [facility] REPOSITORY TYPE CODE TESTS RESULT OUT OF REFERENCE UNITS RANGE LAB L501.080 70-110 mg/dL High BEDSIDE GLU 147 Result Comment: MANAGEMENT OF PATIENT CARE PER NURSING PROTOCOL Performed By: #### L501.080 #### [facility] Laboratory Point of Care [address] [place] [address] CNOP Observed: 09/08/2018 Status: COMPLETED Source: [place] 12:00 AM [facility] REPOSITORY Operative Note (Enc) (GENSWS) Progress Notes: Simon Santamaria MD 09/13/2018 9:21 AM Signed OPERATIVE NOTATION FOR [facility] SURGICAL PROCEDURE. September 08, 2018 Simon Peacock 1955 [id number] male PROCEDURE: Diagnostic Laparoscopy - 61491, Laparotomy Lysis of Adhesions - 44424 and Laparotomy - Resection of Small Bowel - 96765 SURGEON: Yo Santamaria M.D. FACS SLIVER HANDLER: None DEPT: WQ PROVIDER: [id number] Santamaria MD POS: [id number] DIAGNOSIS: (C18.0) Primary cancer of cecum (HCC) (primary encounter diagnosis) (K56.609) SBO (small bowel obstruction) (HCC) ASA CLASS: 3 - Severe FINDINGS: dense adhesions COMPLICATIONS: None PMHx - PAST MEDICAL HISTORY Diagnosis Date - Cancer of cecum (HCC) 01/2017 COMORBIDITIES - Current Cancer Therapy Post Op Occurrences - None Wound Classification - Clean Contaminated Operative note dictated in the [facility] dictation system. Simon Santamaria MD Encounter Status:Closed by SIMON SANTAMARIA MD on 09/13/18 [facility] DECUB Observed: 09/08/2018 Status: F Source: IGOR AND/OR ERECT 12:00 AM [facility] REPOSITORY [facility] Imaging Services [address] [place] [address] Abd Inc Decub and/or Erect MR#: [id number] Acct: [id number] Name: SIMON PEACOCK Rep #: [id number] : 1955 M 62 From: Kole Craft MD PCP: Care Physician, No Primary Status: ADM IN Study: Abd Inc Decub and/or Erect Date of Exam: 09/08/18 Exam# [id number] Ordering Dr: Simon Santamaria MD STUDY: X-RAY - ABDOMEN/PELVIS REASON FOR EXAM: Male, 62 years old. NG tube placement TECHNIQUE: 4 views COMPARISON: September 07, 2018 FINDINGS: There are numerous air-fluid levels with an NG tube in place with the tip now in the gastric fundal region. Previously the tip was in the antrum. There is a lumbar scoliosis with convexity to the right and degenerative changes involving the midlumbosacral region. No abnormal calcifications.. RAD/Abd Inc Decub and/or Erect IMPRESSION: A mechanical small bowel obstruction. The tip of the nasogastric tube is in the stomach. Electronically Signed: Kole Craft MD at 4:35 EST Tel , Service support , CC: No Primary Care Physician; Simon Santamaria MD Switchbox Assembler: Signed MASS (DEFINE AREA) Observed: 09/08/2018 Status: F Source: [place] 12:00 AM [facility] REPOSITORY Patient: SIMON PEACOCK : 1955 (62/M) Acct Num: [id number] Phys: Ashkan Mancia MD Unit Num: [id number] Loc: MS3 [id number] Specimen: [id number] Received: 09/08/18 - 5254 Spec Type: Mass TISSUES 1 TISSUES: A. Small intestine biopsy B. Small intestine biopsy C. Small intestine biopsy FROZEN SECTION DIAGNOSIS A. Small bowel nodule, biopsy: Fibrovascular nodule. No evidence of carcinoma. AM: 09/08/18 GROSS DESCRIPTION A - Received fresh for frozen section diagnosis labeled with the patient's name is a specimen designated small bowel nodule. The specimen consists of a piece of alejandro soft tissue measuring 6 x 0.2 x 0.1 cm. The specimen is bisected and submitted in one cassette for frozen section diagnosis. / AM: 09/08/18 B - Received in fixative is one container labeled with the patient's name and designated small bowel nodule. The specimen consists of a piece of adipose tissue with focal indurated area measuring 1.5 x 1 x 0.5 cm. The specimen is bisected and submitted entirely in one cassette. / SJ: 09/09/18 C - Received in fixative is one container labeled with the patient's name and designated small bowel staple line. The specimen consists of a segment of small bowel measuring 19 cm in length and 3 to 6 cm in diameter. The serosal surface is focally ragged. Both resection margins are opened. 6 cm away from one resection margin show focal area of constriction. Close to the constricted area an indurated area is noted on the serosal surface measuring 1.5 x 1 cm. No mucosal lesion is identified. The lumen contains a small amount of fecal material. Also present in the container is a staple line measuring 5 x 2 x 1 cm. Sections will be submitted after overnight fixation. / SJ: 09/09/18 Presales Consultant sections are submitted in seven cassettes as follows: 1 - staple line, 2 - resection margins, 3 AND 4 - indurated area on the serosal surface with underlying bowel wall, 5 - dilated segment of small bowel, 6 - nondilated segment of small bowel, 7 - mesenteric tissue. / SJ: 09/10/18 TC :5 CPT: 51012 x2, 37544, 13721, 76346 HEADER OPERATION: Exploratory laparoscopy converted to open PRE-OP DIAGNOSIS: Small bowel obstruction TISSUE SUBMITTED: A - Small bowel nodule (sent for frozen at 1554), B - Small bowel nodule, C - Small bowel, staple line MICROSCOPIC DESCRIPTION Slides are reviewed. MICROSCOPIC DIAGNOSIS A. Small bowel nodule, biopsy: A piece of fibrovascular tissue with reactive changes, negative for malignancy. B. Small bowel nodule: A piece of fibroadipose, fibrovascular and fibromuscular tissue with reactive changes and chronic inflammation. Negative for malignancy. C. Small bowel and staple line: Serosal fibrovascular nodule with reactive changes and chronic inflammation. Mucosal and submucosal congestion and hemorrhage. Transmural congestion. Staple line - serosal reactive changes and chronic inflammation. SJ:khris 09/13/18 Signed Surya Soto MD 09/13/18 <signature on file> Performed By: #### PMASS #### [facility] Laboratory [address] [facility] [address] [place], [place], [address] BEDSIDE GLUCOSE Collected: 09/07/2018 Status: F Source: IG[place] 6:31 PM [facility] REPOSITORY TYPE CODE TESTS RESULT OUT OF REFERENCE UNITS RANGE LAB L501.080 70-110 mg/dL High BEDSIDE GLU 142 Result Comment: MANAGEMENT OF PATIENT CARE PER NURSING PROTOCOL Performed By: #### L501.080 #### [facility] Laboratory Point of Care [address] [place], [place] [address] BEDSIDE GLUCOSE Collected: 09/07/2018 Status: F Source: [place] 12:44 PM [facility] REPOSITORY TYPE CODE TESTS RESULT OUT OF REFERENCE UNITS RANGE LAB L501.080 70-110 mg/dL High BEDSIDE GLU 152 Result Comment: MANAGEMENT OF PATIENT CARE PER NURSING PROTOCOL Performed By: #### L501.080 #### [facility] Laboratory Point of Care [address] [place] [address] CBC W/DIFF, AUTOMATED Collected: 09/07/2018 Status: F Source: [place] 5:55 AM [facility] REPOSITORY TYPE CODE TESTS RESULT OUT OF RANGE REFERENCE UNITS LAB L100.1000 4.4-11.0 K/mm3 Low WBC 3.9 LAB L100.1200 4.6-6.2 M/mm3 Low RBC 4.35 LAB L100.1300 13.0-16.5 g/dl Normal HGB 14.3 LAB L100.1400 40-54 % Normal HCT 42.8 LAB L100.1500 80-94 fL High MCV 98.4 LAB L100.1600 27.0-32.0 pg High MCH 32.9 LAB L100.1700 32-36 g/gl Normal MCHC 33.4 LAB L100.1810 11.6-14.6 % Normal RDW CV 12.0 LAB L100.1820 35.1-43.9 fl Normal RDW SD 43.4 LAB L100.1900 150-450 K/mm3 Normal PLT 162 LAB L100.2000 6.2-12.0 fl Normal MPV 9.7 LAB L100.2100 47-70 % Low NEUT% 45.8 LAB L100.2200 19-41 % Normal LY% 27.2 LAB L100.2300 0-10 % High MONO% 21.3 LAB L100.2400 0-5 % Normal EO% 4.9 LAB L100.2500 0-1 % Normal BASO% 0.5 LAB L100.2550 0.0-0.9 % Normal IM GRAN % 0.300 Result Comment: IG% - Immature Granulocytes (promyelocytes, myelocytes and metamyelocytes) > 1% indicates that a LEFT SHIFT is Present. LAB L100.2620 2.0-7.7 X10 3/uL Low Absolute Neut 1.8 LAB L100.2720 0.83-4.51 X10 3/ul Normal Absolute Lymph 1.06 Performed By: #### L100.0100 #### [facility] Laboratory [address] [facility] [place], [place], [address] RENAL PROFILE Collected: 09/07/2018 Status: F Source: [place] 5:55 AM [facility] REPOSITORY TYPE CODE TESTS RESULT OUT OF RANGE REFERENCE UNITS LAB L501.0100 74-106 mg/dL High GLU 136 Result Comment: Fasting Glucose result greater than or equal to 126 mg/dL suggests DIABETES MELLITUS per A.D.A. criteria. Please note revised GLUCOSE reference range effective 2017. LAB L501.1000 7-18 mg/dL High BUN 22 LAB L501.1100 0.70-1.30 mg/dL High CREAT,SERUM 1.37 Result Comment: The validity of the calculated GFR AND GFRAA in patients over 70 years has not been determined. Clinical correlation is essential. LAB L501.1110 >60 mL/min Low EST GFR 56 Result Comment: Non- GFR Calc LAB L501.1115 >60 mL/min Normal EST GFR - AA 67 Result Comment: GFR Calc LAB L501.1255 ml/min Normal Estimated CRCL 63.46 LAB L501.1300 10-20 RATIO Normal BUN/CRE 16.1 LAB L501.1800 3.2-5. g/dL Low 0 ALB 2.9 LAB L501.2200 8.5-10 mg/dL Normal .1 CA 8.5 LAB L501.2300 2.5-4. mg/dL Normal 9 PHOS 2.9 LAB L501.5300 136-14 mmol/L Normal 5 NA 138 LAB L501.5600 3.5-5. mmol/L Normal 1 K 3.8 LAB L501.5900 98-107 mmol/L Normal CL 103 LAB L501.6100 21.0-3 mmol/L Normal 2.0 CO2 26.0 Performed By: #### L500.3600, L501.5200, L506.0500 #### [facility] Laboratory [address] [facility]. [place], [place], [id number] MAGNESIUM Collected: 09/07/2018 Status: F Source: [place] 5:55 AM [facility] REPOSITORY TYPE CODE TESTS RESULT OUT OF RANGE REFERENCE UNITS LAB L501.5200 1.6-2.6 mg/dL Normal MG 2.0 Performed By: #### L500.3600, L501.5200, L506.0500 #### [facility] Laboratory [address] [place], [address] PREALBUMIN Collected: 09/07/2018 Status: F Source: [place] 5:55 AM [facility] REPOSITORY TYPE CODE TESTS RESULT OUT OF REFERENCE UNITS RANGE LAB L506.0500 20.0-40.0 mg/dL Low PREALBUMIN 15.5 Performed By: #### L500.3600, L501.5200, L506.0500 #### [facility] Laboratory [address] [place], [address] LIVER PROFILE Collected: 09/07/2018 Status: F Source: [place] 5:55 AM [facility] REPOSITORY TYPE CODE TESTS RESULT OUT OF RANGE REFERENCE UNITS LAB L501.1500 6.4-8.2 g/dL Low T PROT 6.0 LAB L501.1800 3.2-5.0 g/dL Low ALB 3.0 LAB L501.1950 2.2-4.2 g/dL Normal GLOB 3.0 LAB L501.4100 15-37 U/L Low AST 14 LAB L501.4305 45-117 U/L Normal ALK P 55 LAB L501.4405 16-61 U/L Normal ALT 18 LAB L501.4600 0.20-1.00 mg/dL Normal T BILI 0.40 LAB L501.4700 0.00-0.30 mg/dL Normal D BILI 0.15 Performed By: #### L500.3400 #### [facility] Laboratory [address] [facility] [place], [address] BEDSIDE GLUCOSE Collected: 09/07/2018 Status: F Source: [place] 5:51 AM [facility] REPOSITORY TYPE CODE TESTS RESULT OUT OF REFERENCE UNITS RANGE LAB L501.080 70-110 mg/dL High BEDSIDE GLU 161 Result Comment: MANAGEMENT OF PATIENT CARE PER NURSING PROTOCOL Performed By: #### L501.080 #### [facility] Laboratory Point of Care [address] [place] [address] BEDSIDE GLUCOSE Collected: 09/07/2018 Status: F Source: [place] 1:15 AM [facility] REPOSITORY TYPE CODE TESTS RESULT OUT OF REFERENCE UNITS RANGE LAB L501.080 70-110 mg/dL High BEDSIDE GLU 173 Result Comment: MANAGEMENT OF PATIENT CARE PER NURSING PROTOCOL Performed By: #### L501.080 #### [facility] Laboratory Point of Care [address] [place] [address] ABDOMEN SINGLE VIEW Observed: 09/07/2018 Status: F Source: [place] (PORTABLE) 12:54 AM [facility] REPOSITORY [facility] Imaging Services [address] [place] [address] Abdomen Single View (Portable) MR#: [id number] Acct: [id number] Name: SIMON PEACOCK Rep #: [id number] : 1955 M 62 From: Kole Craft MD PCP: Care Physician, No Primary Status: ADM IN Study: Abdomen Single View (Portable) Date of Exam: 09/07/18 Exam# [id number] Ordering Dr: Simon Santamaria MD STUDY: X-RAY - ABDOMEN/PELVIS REASON FOR EXAM: Male, 62 years old. NG tube placement TECHNIQUE: 1 view COMPARISON: None. FINDINGS: The tip of an NG tube is in the stomach. Distended loops of small bowel in the midabdomen. Degenerative changes of the lumbosacral spine. I. Electronically Signed: Kole Craft MD at 2:42 EST Tel , Service support , RAD/Abdomen Single View (Portable) CC: No Primary Care Physician; Simon Santamaria MD Switchbox Assembler: Signed ABDOMEN SINGLE VIEW Observed: 09/07/2018 Status: F Source: [place] (PORTABLE) 12:09 AM [facility] REPOSITORY [facility] Imaging Services [address] [place] [address] Abdomen Single View (Portable) MR#: [id number] Acct: [id number] Name: SIMON PEACOCK Rep #: [id number] : 1955 M 62 From: Kole Craft MD PCP: Care Physician, No Primary Status: ADM IN Study: Abdomen Single View (Portable) Date of Exam: 09/07/18 Exam# [id number] Ordering Dr: Simon Santamaria MD STUDY: X-RAY - ABDOMEN/PELVIS REASON FOR EXAM: Male, 62 years old. NG tube placement TECHNIQUE: 1 view COMPARISON: None. FINDINGS: The tip of an NG tube is noted within the distal end of the esophagus. The stomach is mildly distended and there are distended loops of small bowel in the midabdomen. There are also degenerative changes of the lumbosacral spine. RAD/Abdomen Single View (Portable) IMPRESSION: NG tube tip is in the distal esophagus and not in the stomach. Electronically Signed: Kole Craft MD at 2:43 EST Tel , Service support , CC: No Primary Care Physician; Simon Santamaria MD Switchbox Assembler: Signed ABD INC DECUB Observed: 09/07/2018 Status: F Source: IG[place] AND/OR ERECT 12:01 AM [facility] REPOSITORY [facility] Imaging Services [address] [place] [address] Abd Inc Decub and/or Erect MR#: [id number] Acct: [id number] Name: SIMON PEACOCK Rep #: [id number] : 1955 M 62 From: Kole Craft MD PCP: Care Physician, No Primary Status: ADM IN Study: Abd Inc Decub and/or Erect Date of Exam: 09/07/18 Exam# [id number] Ordering Dr: Simon Santamaria MD STUDY: X-RAY - ABDOMEN/PELVIS REASON FOR EXAM: Male, 62 years old. Small bowel obstruction TECHNIQUE: 4 views COMPARISON: 09/07/2018 done at 12:20 AM FINDINGS: There are numerous air-fluid levels. There is no free intraperitoneal air. A nasogastric tube is in place. There are degenerative changes of the lumbosacral spine and lumbar scoliosis with convexity to the right. No abnormal calcifications in the kidneys. RAD/Abd Inc Decub and/or Erect IMPRESSION: Small bowel obstruction with numerous air-fluid levels. A nasogastric tube is in place Electronically Signed: Kole Craft MD at 6:08 EST Tel , Service support , CC: No Primary Care Physician; Simon Santamaria MD Switchbox Assembler: Signed BEDSIDE GLUCOSE Collected: 09/06/2018 Status: F Source: IG[place] 5:34 PM [facility] REPOSITORY TYPE CODE TESTS RESULT OUT OF REFERENCE UNITS RANGE LAB L501.080 70-110 mg/dL High BEDSIDE GLU 143 Result Comment: MANAGEMENT OF PATIENT CARE PER NURSING PROTOCOL Performed By: #### L501.080 #### [facility] Laboratory Point of Care [address] [place] [address] BEDSIDE GLUCOSE Collected: 09/06/2018 Status: F Source: [place] 12:05 PM [facility] REPOSITORY TYPE CODE TESTS RESULT OUT OF REFERENCE UNITS RANGE LAB L501.080 70-110 mg/dL High BEDSIDE GLU 185 Result Comment: MANAGEMENT OF PATIENT CARE PER NURSING PROTOCOL Performed By: #### L501.080 #### [facility] Laboratory Point of Care [address] [place] [address] ABDOMEN/PEL W ORAL CONT Observed: 09/06/2018 Status: F Source: IG[place] ONLY 7:33 AM [facility] REPOSITORY [facility] Imaging Services [address] [place] [address] Abdomen/Pel W ORAL Cont Only MR#: [id number] Acct: [id number] Name: SIMON PEACOCK Rep #: [id number] : 1955 M 62 From: Moo Trinh MD PCP: Care Physician, No Primary Status: ADM IN Study: Abdomen/Pel W ORAL Cont Only Date of Exam: 09/06/18 Exam# [id number] Ordering Dr: Simon Santamaria MD STUDY: CT ABDOMEN AND PELVIS WITH CONTRAST REASON FOR EXAM: Male, 62 years old. Prior colon resection. Currently receiving chemotherapy with nausea and vomiting. Abdominal pain. Small bowel obstruction. RADIATION DOSAGE (If Supplied By Facility): CTDIvol = ( 10.44 ) mGy, DLP = ( 522.80 ) mGycm TECHNIQUE: Transaxial images were obtained from the dome of the diaphragm to the symphysis pubis with oral contrast. 15 ml of Gastrografin contrast was administered. Sagittal and coronal images were reconstructed. Individualized dose optimization techniques were used for this CT. COMPARISON: Comparison is made with prior examination dated September 03, 2016. FINDINGS: A nasogastric tube is seen. Mild increased linear markings at the left lung base suggestive of linear scarring and/or atelectasis. The visualized portions of the heart are within normal limits. Normal liver. Normal gallbladder and extrahepatic biliary system. Normal spleen. Normal pancreas. Normal bilateral adrenal glands. The patient is status post right nephrectomy. Normal left kidney. There is a small hiatal hernia. There are dilated loops of the small intestine with a non-distended colon consistent with a small bowel obstruction. The patient is status post subtotal colectomy. Anastomosis is seen in the right mid abdomen. There is non-visualization of the appendix. Normal abdominal aorta. Normal inferior vena cava. Normal retroperitoneum. Normal urinary bladder. A small amount of free fluid is seen in the pelvis. Normal abdominal wall. There are diffuse degenerative changes of the visualized lumbar spine. Mild dextroscoliosis. CT/Abdomen/Pel W ORAL Cont Only IMPRESSION: Stable examination demonstrating small bowel obstruction. Electronically Signed: Moo Trinh MD at 11:00 EST Tel [phone], Service support , CC: No Primary Care Physician; Simon Santamaria MD Switchbox Assembler: Signed CBC W/DIFF, AUTOMATED Collected: 09/06/2018 Status: F Source: [place] 5:00 AM [facility] REPOSITORY TYPE CODE TESTS RESULT OUT OF RANGE REFERENCE UNITS LAB L100.1000 4.4-11.0 K/mm3 Low WBC 3.0 LAB L100.1200 4.6-6.2 M/mm3 Low RBC 4.29 LAB L100.1300 13.0-16.5 g/dl Normal HGB 14.4 LAB L100.1400 40-54 % Normal HCT 42.8 LAB L100.1500 80-94 fL High MCV 99.8 LAB L100.1600 27.0-32.0 pg High MCH 33.6 LAB L100.1700 32-36 g/gl Normal MCHC 33.6 LAB L100.1810 11.6-14.6 % Normal RDW CV 11.6 LAB L100.1820 35.1-43.9 fl Normal RDW SD 42.2 LAB L100.1900 150-450 K/mm3 Normal PLT 173 LAB L100.2000 6.2-12.0 fl Normal MPV 10.5 LAB L100.2100 47-70 % Low NEUT% 42.0 LAB L100.2200 19-41 % Normal LY% 23.2 LAB L100.2300 0-10 % High MONO% 31.1 LAB L100.2400 0-5 % Normal EO% 3.0 LAB L100.2500 0-1 % Normal BASO% 0.7 LAB L100.2550 0.0-0.9 % Normal IM GRAN % 0.000 Result Comment: IG% - Immature Granulocytes (promyelocytes, myelocytes and metamyelocytes) > 1% indicates that a LEFT SHIFT is Present. LAB L100.2620 2.0-7.7 X10 3/uL Low Absolute Neut 1.3 LAB L100.2720 0.83-4.51 X10 3/ul Low Absolute Lymph 0.70 Performed By: #### L100.0100 #### [facility] Laboratory [place], [address] RENAL PROFILE Collected: 09/06/2018 Status: F Source: [place] 5:00 AM [facility] REPOSITORY TYPE CODE TESTS RESULT OUT OF RANGE REFERENCE UNITS LAB L501.0100 74-106 mg/dL High GLU 117 Result Comment: Fasting Glucose result from 100 to 125 mg/dL suggests IMPAIRED HOMEOSTASIS per A.D.A. criteria. Please note revised GLUCOSE reference range effective 2017. LAB L501.1000 7-18 mg/dL High BUN 20 LAB L501.1100 0.70-1.30 mg/dL High CREAT,SERUM 1.47 Result Comment: The validity of the calculated GFR AND GFRAA in patients over 70 years has not been determined. Clinical correlation is essential. LAB L501.1110 >60 mL/min Low EST GFR 51 Result Comment: Non- GFR Calc LAB L501.1115 >60 mL/min Normal EST GFR - AA 62 Result Comment: GFR Calc LAB L501.1255 ml/min Normal Estimated CRCL 59.15 LAB L501.1300 10-20 RATIO Normal BUN/CRE 13.6 LAB L501.1800 3.2-5. g/dL Low 0 ALB 3.0 LAB L501.2200 8.5-10 mg/dL Low .1 CA 8.4 LAB L501.2300 2.5-4. mg/dL Low 9 PHOS 2.2 LAB L501.5300 136-14 mmol/L Normal 5 NA 140 LAB L501.5600 3.5-5. mmol/L Normal 1 K 4.0 LAB L501.5900 98-107 mmol/L Normal CL 105 LAB L501.6100 21.0-3 mmol/L Normal 2.0 CO2 28.0 Performed By: #### L500.3600, L500.4100 #### [facility] Laboratory [address] [place], [address] LIPID PROFILE Collected: 09/06/2018 Status: F Source: [place] 5:00 AM [facility] REPOSITORY TYPE CODE TESTS RESULT OUT OF RANGE REFERENCE UNITS LAB L501.4900 200 mg/dL Normal CHOL 121 Result Comment: <200 mg/dL Desirable 200-240 mg/dL Borderline >240 mg/dL High Risk LAB L501.5000 mg/dL Normal TRIG 81 Result Comment: The drugs N-Acetylcysteine and Metamizole may falsely depress this assay. Serum Triglycerides Reference Interval Normal <150 mg/dL Borderline high 150 - 199 mg/dL High 200 - 499 mg/dL Very High > or = 500 mg/dL LAB L501.6400 mg/dL Normal HDL 64 Result Comment: The drugs N-Acetylcysteine and Metamizole may falsely depress this assay. Reference Range HDL <40 mg/dL Low HDL Cholesterol HDL >or= 60 mg/dL High HDL Cholesterol LAB L501.6500 0-130 mg/dL Normal LDL 41 LAB L501.6600 5-40 mg/dL Normal VLDL 16 Performed By: #### L500.3600, L500.4100 #### [facility] Laboratory [address], [address] ABD INC DECUB Observed: 09/06/2018 Status: F Source: IG[place] AND/OR ERECT 12:01 AM [facility] REPOSITORY [facility] [facility] [address] [place] [address] Abd Inc Decub and/or Erect MR#: [id number] Acct: [id number] Name: SIMON PEACOCK Rep #: [id number] : 1955 M 62 From: Kole Craft MD PCP: Care Physician, No Primary Status: ADM IN Study: Abd Inc Decub and/or Erect Date of Exam: 09/06/18 Exam# [id number] Ordering Dr: Simon Santamaria MD STUDY: X-RAY - ABDOMEN/PELVIS REASON FOR EXAM: Male, 62 years old. Small bowel obstruction TECHNIQUE: 3 views COMPARISON: September 04, 2018 FINDINGS: There is small bowel obstruction demonstrated by numerous air-fluid levels in the mid abdomen. The findings look worse than had been seen on September 04, 2018 The tip of a nasogastric tube is in the stomach. There is no free intraperitoneal air. There are no abnormal calcifications in the kidneys. RAD/Abd Inc Decub and/or Erect IMPRESSION: Small bowel obstruction. The air fluid levels are more impressive on today's examination than were noted on September 04, 2018 Electronically Signed: Kole Craft MD at 6:02 EST Tel , Service support , CC: No Primary Care Physician; Simon Santamaria MD Switchbox Assembler: Signed BASIC METABOLIC Collected: 09/05/2018 Status: F Source: IGOR PROFILE (BMP) 5:45 AM [facility] REPOSITORY TYPE CODE TESTS RESULT OUT OF RANGE REFERENCE UNITS LAB L501.0100 74-106 mg/dL High GLU 117 Result Comment: Fasting Glucose result from 100 to 125 mg/dL suggests IMPAIRED HOMEOSTASIS per A.D.A. criteria. Please note revised GLUCOSE reference range effective 2017. LAB L501.1000 7-18 mg/dL High BUN 19 LAB L501.1100 0.70-1.30 mg/dL High CREAT,SERUM 1.54 Result Comment: The validity of the calculated GFR AND GFRAA in patients over 70 years has not been determined. Clinical correlation is essential. LAB L501.1110 >60 mL/min Low EST GFR 49 Result Comment: Non- GFR Calc LAB L501.1115 >60 mL/min Low EST GFR - AA 59 Result Comment: GFR Calc LAB L501.1255 ml/min Normal Estimated CRCL 56.46 LAB L501.1300 10-20 RATIO Normal BUN/CRE 12.3 LAB L501.2200 8.5-10 mg/dL Normal .1 CA 8.5 LAB L501.5300 136-14 mmol/L Normal 5 NA 139 LAB L501.5600 3.5-5. mmol/L Normal 1 K 4.4 LAB L501.5900 98-107 mmol/L Normal CL 104 LAB L501.6100 21.0-3 mmol/L Normal 2.0 CO2 28.0 LAB L501.6200 5-15 Normal GAP 7 Performed By: #### L500.2500 #### [facility] [address] [place], [address] ABD INC DECUB Observed: 09/05/2018 Status: F Source: IGOR AND/OR ERECT 12:00 AM [facility] REPOSITORY [facility] Imaging Services [address] [place] [address] Abd Inc Decub and/or Erect MR#: [id number] Acct: [id number] Name: SIMON EPACOCK Rep #: [id number] : 1955 M 62 From: Gabriel Castellanos MD PCP: Care Physician, No Primary Status: ADM IN Study: Abd Inc Decub and/or Erect Date of Exam: 09/05/18 Exam# [id number] Ordering Dr: Simon Santamaria MD STUDY: X-RAY - ABDOMEN/PELVIS REASON FOR EXAM: Male, 62 years old. Small bowel obstruction follow-up chest TECHNIQUE: AP supine and upright views of the abdomen and pelvis. COMPARISON: Previous day FINDINGS: Enteric tube is stable extending to the upper stomach. Increased amount of gaseous distention of the stomach since the prior study, however, persistent, similar appearance of dilated (5.4 cm) small bowel throughout the abdomen. Air-fluid levels are identified on upright imaging. Colonic gas is identified. There are surgical yelena in the right abdomen. There is no demonstrated free abdominal air. The visualized liver, spleen and kidneys are grossly normal in size and morphology. Normal soft tissue structures. There are diffuse degenerative changes of the visualized lumbar spine. RAD/Abd Inc Decub and/or Erect IMPRESSION: 1. Stable small bowel obstruction. Increased gaseous distention of stomach since prior study. Electronically Signed: Gabriel Castellanos MD at 11:09 EST , Service support , CC: No Primary Care Physician; Simon Santamaria MD Switchbox Assembler: Signed CONSULTATION Observed: 09/04/2018 Status: F Source: IGOR 8:18 AM [facility] REPOSITORY [facility] Medical Records Department [address] [place] [address] Consultation 09/04/18 0805 MR#: [id number] Acct: [id number] Name: SIMON PEACOCK Rep #: [id number] : 1955 62 From: Simon Santamaria MD PCP: Care Physician, No Primary Status: ADM IN Y Location: [id number] Reason for Consult Date of Consultation: 09/04/18 Reason for Consultation: bowel obstruction-nausea vomiting History of Present Illness: The patient is a 62 year old M with a complex medical history due to metastatic abdominal colon cancer. The patient had been is his usual state of health when night he had 3 episodes of watery diarrheal stool followed by abdominal distention and abdominal pain. As evening or on the patient had persistent abdominal pain followed by nausea and vomiting. His symptoms fail to improve and he presented to [facility] emergency department Thursday night. The patient was evaluated found to have unremarkable white blood cell count and laboratory parameters area CT scan of the abdomen pelvis was obtained which demonstrated surgical changes consistent with his past surgical history and was felt to be a bowel obstruction with a transition point noted to be near the previous ilio colic anastomosis. Nasogastric tube was placed and postprocedure x-ray demonstrated good positioning of the NG tube. The patient denies flatus since admission. He notes he still has abdominal discomfort but overall this is improved with narcotic pain medication and he is no longer nauseated vomiting. NG tube has good output. The patient initially underwent laparoscopic right hemicolectomy at [facility]/ at [facility] on February 01, 2016 for a cecal cancer which was perforated. Pathology at that time demonstrated the tumor with 1 of 31 lymph nodes positive. Final pathologic stage was pT4a pN1a stage IIIB. The patient was started on chemotherapy but developed a sustained bowel obstruction. he was admitted again [facility] and on March 04, 2016 underwent exploratory laparotomy which demonstrated abdominal metastases. He had an extensive lysis of intra-abdominal adhesions with release of small bowel obstruction. 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 there was felt to be tumor adherent to the sigmoid colon so he underwent a distal resection of the sigmoid colon along with resection of serosal implants and resection of part of the right psoas muscle for was also felt to be metastatic implants. I performed colonoscopy on November 27, 2017. The patient was found to have healthy ileocolic and healthy-appearing colocolic anastomoses. I was able to easily advance beyond both anastomoses. The small bowel proximal to the ileocolic anastomosis appeared normal. There were no signs of anastomotic strictures or other issues at that time or location. Past Medical History Past Medical History (Chronic Problems): Chronic Problems Colon cancer (Chronic) Allergies No Known Allergies Allergy (Verified 09/03/18 15:59) Home Medications: Ambulatory Orders Medication Instructions Recorded NK 09/03/18 Surgical History: colectomy - 02/01/16, - - Surgery for small bowel obstruction - right nephrectomy, sigmoid colectomy, partial psoas resection, debulking, extensive lysis of adhesions - 03/04/16 Lives: With Family Smoking Status: Never smoker Drugs: None - *Family History Maternal Family History: Family History (Last Reviewed 09/03/18 @ 22:52 by Josep Allen MD) Mother Hypothyroidism Sister Hypothyroidism Multiple sclerosis History Items: No pertinent history Review of Systems Constitutional: Denies: Chills, Fever, Weight Change HEENT: Denies: Head Aches, Sinus Congestion, Sinus Drainage Cardiovascular: Denies: Chest Pain, Palpitations Respiratory: Denies: Cough, Shortness of breath at rest, Sputum production Gastrointestinal: Reports: Abdominal Pain, Nausea, Vomiting Genitourinary: Denies: Dysuria Musculoskeletal: Denies: Joint Pain, Joint Tenderness Skin: Denies: Rash, Wounds Neurological: Denies: Numbness, Tingling, Focal weakness Psychiatric: Denies: Anxiety, Depression, Homicidal Ideations, Suicidal Ideations Hematologic/ Lymphatic: Denies: Easy Bruising, Easy Bleeding Patient Problems: Active and Suspected Problems Partial small bowel obstruction (Acute) - Physical Exam General: Alert, Oriented x3, - - well-hydrated, thin-appearing HEENT: Atraumatic, PERRLA, EOMI, Normocephalic Lungs: Clear to auscultation, Normal air movement Cardiovascular: Regular rate, No murmurs Abdomen: Soft, Hypoactive Bowel Sounds, Distended - but not rigid with minimal diffuse tenderness without peritoneal signs Vital Signs Temp Pulse Resp BP Pulse Ox 98 F 68 16 136/89 H 98 09/04/18 02:42 09/04/18 02:42 09/04/18 02:42 09/04/18 02:42 09/04/18 07:08 Oxygen Delivery Method Room Air Weight: 81.3 kg Body Mass Index (BMI) 21.8 Intake and Output for Last 24 Hours Intake Total 781 / 781 Output Total 1050 / 1050 Balance -269 / -269 Laboratory Tests Past 24 Hrs WBC 10.1 RBC 4.60 Hgb 15.4 Hct 44.9 WBC 6.7 RBC 4.43 L Hgb 14.8 Hct 43.4 MCV 98.0 H MCH 33.4 H MCHC 34.1 RDW 12.0 RDW Differential 43.6 Plt Count 185 Assessment/Plan All Active Problems Partial small bowel obstruction (Acute) New onset atrial fibrillation (Resolved) Hypotension (Resolved) 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 Now with small bowel obstruction. CT scan suggests relatively distal small bowel obstruction. Given the nephrectomy, psoas resection, sigmoid resection and debulking, with recent colonoscopy demonstrated no anastomotic stricture, consisting obviously with adhesive small bowel obstruction. Given patient's complicated past history, we will plan for conservative management if possible. NG tube, IV fluid support, we will follow with serial abdominal exams and x-rays. This morning's x-ray is currently pending. If improving without complete resolution may trial Gastrografin through NG tube. Discussed with patient that surgery would be planned last option. do not see signs of recurrent mass causing obstruction on CT images and no mention by radiologic report. Comment of transition point near staple line between second and third portion of the duodenum. No mention operative report of duodenal involvement at initial surgery and review of staple location likely demonstrates this was stapled anastomosis of the right colon vasculature. Between resection that location, nephrectomy and so his resection, anticipate small bowel adhesion with transition at that location. 09/04/18 0818 <Electronically signed by Simon Santamaria MD> Date Simon Santamaria MD Cosigner Signature (if applicable): Date CC: No Primary Care Physician; Josep Allen MD; Simon Santamaria MD Signed ABD INC DECUB Observed: 09/04/2018 Status: F Source: IGOR AND/OR ERECT 7:00 AM [facility] REPOSITORY [facility] [place] [address] Abd Inc Decub and/or Erect MR#: [id number] Acct: [id number] Name: SIMON PEACOCK Rep #: [id number] : 1955 M 62 From: Singh Ramos MD PCP: Care Physician, No Primary Status: ADM IN Study: Abd Inc Decub and/or Erect Date of Exam: 09/04/18 Exam# [id number] Ordering Dr: Simon Santamaria MD STUDY: X-RAY - ABDOMEN/PELVIS REASON FOR EXAM: Male, 62 years old. Small bowel obstruction. TECHNIQUE: AP supine and upright views of the abdomen and pelvis. COMPARISON: CT scan and plain films of 09/03/2018. FINDINGS: Normal visualized lung bases. Nasogastric tube terminates in the fundus of the stomach. Continued abnormal bowel gas pattern with numerous distended loops of small bowel and almost no large bowel air. Findings continue to represent small bowel obstruction. No free air. The visualized liver, spleen and kidneys are grossly normal in size and morphology. Normal soft tissue structures. There are diffuse degenerative changes of the visualized lumbar spine. RAD/Abd Inc Decub and/or Erect IMPRESSION: Continued small bowel obstruction. Electronically Signed: Singh Ramos MD at 9:58 EST , Service support , CC: No Primary Care Physician; Simon Santamaria MD Switchbox Assembler: Signed CBC W/DIFF, AUTOMATED Collected: 09/04/2018 Status: F Source: IGOR 6:00 AM [facility] REPOSITORY Order Comment: SPECIMEN OBTAINED FROM LINE DRAW TYPE CODE TESTS RESULT OUT OF RANGE REFERENCE UNITS LAB L100.1000 4.4-11.0 K/mm3 Normal WBC 6.7 LAB L100.1200 4.6-6.2 M/mm3 Low RBC 4.43 LAB L100.1300 13.0-16.5 g/dl Normal HGB 14.8 LAB L100.1400 40-54 % Normal HCT 43.4 LAB L100.1500 80-94 fL High MCV 98.0 LAB L100.1600 27.0-32.0 pg High MCH 33.4 LAB L100.1700 32-36 g/gl Normal MCHC 34.1 LAB L100.1810 11.6-14.6 % Normal RDW CV 12.0 LAB L100.1820 35.1-43.9 fl Normal RDW SD 43.6 LAB L100.1900 150-450 K/mm3 Normal PLT 185 LAB L100.2000 6.2-12.0 fl Normal MPV 9.3 LAB L100.2100 47-70 % High NEUT% 72.9 LAB L100.2200 19-41 % Low LY% 8.4 LAB L100.2300 0-10 % High MONO% 18.1 LAB L100.2400 0-5 % Normal EO% 0.4 LAB L100.2500 0-1 % Normal BASO% 0.1 LAB L100.2550 0.0-0.9 % Normal IM GRAN % 0.100 Result Comment: IG% - Immature Granulocytes (promyelocytes, myelocytes and metamyelocytes) > 1% indicates that a LEFT SHIFT is Present. LAB L100.2620 2.0-7.7 X10 3/uL Normal Absolute Neut 4.9 LAB L100.2720 0.83-4.51 X10 3/ul Low Absolute Lymph 0.56 Performed By: #### L100.0100 #### [facility] Laboratory [facility] [address] [place], [place], [id number] BASIC METABOLIC Collected: 09/04/2018 Status: F Source: IGOR PROFILE (BMP) 6:00 AM [facility] REPOSITORY Order Comment: SPECIMEN OBTAINED FROM LINE DRAW TYPE CODE TESTS RESULT OUT OF RANGE REFERENCE UNITS LAB L501.0100 74-106 mg/dL High GLU 136 Result Comment: Fasting Glucose result greater than or equal to 126 mg/dL suggests DIABETES MELLITUS per A.D.A. criteria. Please note revised GLUCOSE reference range effective 2017. LAB L501.1000 7-18 mg/dL High BUN 19 LAB L501.1100 0.70-1.30 mg/dL High CREAT,SERUM 1.61 Result Comment: The validity of the calculated GFR AND GFRAA in patients over 70 years has not been determined. Clinical correlation is essential. LAB L501.1110 >60 mL/min Low EST GFR 46 Result Comment: Non- GFR Calc LAB L501.1115 >60 mL/min Low EST GFR - AA 56 Result Comment: GFR Calc LAB L501.1255 ml/min Normal Estimated CRCL 54.00 LAB L501.1300 10-20 RATIO Normal BUN/CRE 11.8 LAB L501.2200 8.5-10 mg/dL Normal .1 CA 8.7 LAB L501.5300 136-14 mmol/L Normal 5 NA 139 LAB L501.5600 3.5-5. mmol/L Normal 1 K 4.6 LAB L501.5900 98-107 mmol/L Normal CL 103 LAB L501.6100 21.0-3 mmol/L Normal 2.0 CO2 29.0 LAB L501.6200 5-15 Normal GAP 7 Performed By: #### L500.2500 #### [facility] [address] [facility] [place], [address] HISTORY AND PHYSICAL Observed: 09/03/2018 Status: F Source: [place] EXAM 10:55 PM [facility] REPOSITORY [facility] Medical Records Department [address] [place] [address] History and Physical 09/03/181921 MR#: [id number] Acct: [id number] Name: SIMON PEACOCK Rep #: [id number] : 1955 62 From: Josep Allen MD PCP: Care Physician, No Primary Status: ADM IN Y Location: [facility] [id number] Problem List (1) Partial small bowel obstruction Status: Acute (2) Colon cancer Status: Chronic (3) New onset atrial fibrillation Status: Resolved (4) Hypotension Status: Resolved Qualifiers: Hypotension type: orthostatic hypotension Qualified Code(s): I95.1 - Orthostatic hypotension History of Present Illness Date of Admission: 09/03/18 Chief Complaint: abdominal pain The patient is a 62 year old M with a significant history of stage 4 colon cancer status post colectomy with complications of bowel obstruction after colectomy requiring another bowel surgery, chemotherapy and now on immunotherapy with Keytruda; one-time episode of A. fib secondary to low magnesium, who presented with sudden onset severe nonradiating diffuse abdominal pain that started the day before his admission. He has no alleviating or ameliorating factor to his pain. Just before the pain started he had 3 episodes of loose bowel movements. Ever since he has not had any other bowel movements. Associated with his symptoms is nausea and vomiting. He reported that in one of his vomitus he there was a speck of blood. CT of the abdomen and pelvis in the emergency department was remarkable for a partial small bowel obstruction. An NG tube to low wall suction was placed in the emergency department. At emergency department Dr. Santamaria, General Surgeon was consulted and will see patient in a.m. Past Medical History Past Medical History (Chronic Problems): Chronic Problems Colon cancer (Chronic) Allergies No Known Allergies Allergy (Verified 09/03/18 15:59) Home Medications: Ambulatory Orders Medication Instructions Recorded NK 09/03/18 Surgical History: colectomy, - - Surgery for small bowel obstruction Lives: With Family Smoking Status: Never smoker Drugs: None - *Family History Maternal Family History: Family History (Last Reviewed 09/03/18 @ 22:52 by Josep Allen MD) Mother Hypothyroidism Sister Hypothyroidism Multiple sclerosis History Items: No pertinent history Review of Systems Constitutional: Reports: Anorexia. Denies: Chills, Fever, Weight Change HEENT: Denies: Head Aches, Sinus Congestion, Sinus Drainage Cardiovascular: Denies: Chest Pain, Palpitations Respiratory: Denies: Cough, Shortness of breath at rest, Sputum production Gastrointestinal: Reports: Abdominal Pain, Nausea, Vomiting Genitourinary: Denies: Dysuria Musculoskeletal: Denies: Joint Pain, Joint Tenderness Skin: Denies: Rash, Wounds Neurological: Denies: Numbness, Tingling, Focal weakness Psychiatric: Denies: Anxiety, Depression, Homicidal Ideations, Suicidal Ideations Hematologic/ Lymphatic: Denies: Easy Bruising, Easy Bleeding VTE Information - Inpt Only VTE Present on Admission: No VTE Mechan Device Prophylaxis: None VTE Pharm Prophylaxis ordered?: Yes Patient Problems: Active and Suspected Problems Partial small bowel obstruction (Acute) - Physical Exam General: Alert, Oriented x3, Cooperative HEENT: Atraumatic, PERRLA, EOMI, Normocephalic Neck: Supple, No JVD, Negative Carotid Bruits Lungs: Clear to auscultation, Normal air movement Cardiovascular: Regular rate, No murmurs Abdomen: Soft, Non Tender, Bowel Sounds Not Present Extremities: No edema, Capillary Refill Less than 3 Seconds Skin: No rashes, No breakdown Musculoskeletal: No Tenderness to Palpation of Joints or Extremities Neurological: Neuro grossly intact Psych/Mental Status: Normal Affect, Appropriate Vital Signs Temp Pulse Resp BP Pulse Ox 98.3 F 71 16 160/73 H 100 09/03/18 19:20 09/03/18 19:20 09/03/18 19:20 09/03/18 19:20 09/03/18 18:17 Oxygen Delivery Method Room Air Weight: 81.3 kg Body Mass Index (BMI) 21.8 Laboratory Tests Past 24 Hrs WBC 10.1 RBC 4.60 Hgb 15.4 Hct 44.9 Assessment/Plan All Active Problems Partial small bowel obstruction (Acute) New onset atrial fibrillation (Resolved) Hypotension (Resolved) The patient is a 62 year old M with a significant history of stage 4 colon cancer status post colectomy with complications of bowel obstruction after colectomy requiring another bowel surgery, chemotherapy and now on immunotherapy with Keytruda; one-time episode of A. fib secondary to low magnesium; who presented with sudden onset severe nonradiating diffuse abdominal pain; nausea; vomiting and with radiographic evidence of partial small bowel obstruction. Small bowel obstruction Continue NG tube to low wall suction. Lactated Ringer's with potassium ordered. Morphine IV as needed Antiemetics with IV Zofran and Compazine ordered. Stage IV colon cancer. Patient gets a Keytruda every 3 weeks. Patient reports that Keytruda is due next week Thursday. Continue outpatient management. Elevated blood pressure without diagnosis of hypertension. On admission his blood pressure was elevated. But he reported that typically he has low blood pressure. His elevated blood pressure may be secondary to pain. Hydralazine as needed ordered. DVT prophylaxis subcutaneous heparin. Code Visit Inpatient E AND M: 36153 Init Hosp L3 09/03/18 5979 <Electronically signed by Josep Allen MD> Date Josep Allen MD Cosigner Signature: Date (if applicable) CC: No Primary Care Physician; Josep Allen MD Signed EMERGENCY DEPARTMENT Observed: 09/03/2018 Status: F Source: [place] SUMMARY 10:39 PM [facility] REPOSITORY [facility] Medical Records Department [address] [place] [address] Emergency Department Summary 09/03/18 1631 MR#: [id number] Acct: [id number] Name: AYUSHSIMON Lindsay Rep #: [id number] : 1955 62 From: Edu Yo DO PCP: Care Physician, No Primary Status: ADM IN - ER Visit Summary Date of Service: 09/03/18 Chief Complaint: Abdominal pain History of Present Illness: The patient is a 62 M who is concerned he may have a small bowel obstruction. 2015 the patient underwent partial colectomy at [facility] for colon cancer. He completed chemotherapy and is currently undergoing immunotherapy with Dr. Ordoñez. The patient states that shortly after his initial surgery he had a small bowel obstruction that required surgical intervention. Since that time however he has not had any issues. Yesterday he reports 3 rapid succession episodes of diarrhea. After that he began to have abdominal pain that is diffuse which he states is very similar to the pain he experienced with a small bowel obstruction. Kept him up most the night and then today he attempted to make himself vomit several times. It was not until around noon when he ate a banana and then 45 minutes later when he had emesis. No further bowel movements since yesterday. No fevers. No urinary symptoms. Physical Examination: Afebrile vital signs are stable Gen: Well-nourished well-developed Head: Normocephalic atraumatic Eyes: Perrl EOMI ENT: TMs clear no rhinorrhea moist mucous membranes Neck: Supple no lymphadenopathy no JVD nontender CVS: Regular rate rhythm no murmurs normal S1-S2 Respiratory: No distress clear to auscultation bilaterally chest nontender Abdomen: Soft there is some slight tympany. There are hypoactive bowel sounds. Mildly tender to palpation without guarding or rebound Back: Nontender Extremity: Nontender no edema Skin: Normal color no rash Neuro: alert orientated 3 CN II-XII intact normal strength sensation reflexes gait cerebellar Psych: Normal affect normal mood Test Results: CBC and lactic acid are normal. CT of the abdomen pelvis demonstrates a small bowel obstruction with an abrupt transition point in the mid gut. Emergency Department Course and Treatment: Patient has received IV fluids morphine and Zofran. NG tube will be placed. I have spoken with Dr. Marx whom the patient has seen in the past. Plan is admission to the hospital. Impression: 1. Acute small bowel obstruction This note was generated with Skyf[employer] dictation software. It may contain incorrect words, spelling, and punctuation that were not noted in review of the chart prior to signing ED Disposition - Plan for ED Patient: Chief Complaint: Abd Pain Referrals: Selin Fontanez [NON-STAFF] - What to do if you have Problems For any increased pain, shortness of breath, bleeding, nausea or vomiting, chest pain, or any unexpected problems, contact your Primary Care Provider. Call [facility] ([phone]) or report to the closest Emergency Room. Call 911 if necessary. 09/03/18 6904 <Electronically signed by Edu Yo DO> Date Edu Yo DO Cosigner Signature (If Indicated): Date CC: No Primary Care Physician ABDOMEN SINGLE VIEW Observed: 09/03/2018 Status: F Source: [place] (PORTABLE) 7:01 PM [facility] REPOSITORY [facility] Imaging Services [address] [place] [address] Abdomen Single View (Portable) MR#: [id number] Acct: [id number] Name: SIMON PEACOCK Rep #: [id number] : 1955 M 62 From: Angeli Franklin MD PCP: Care Physician, No Primary Status: ADM IN Study: Abdomen Single View (Portable) Date of Exam: 09/03/18 Exam# [id number] Ordering Dr: Edu Yo DO STUDY: X-RAY - ABDOMEN/PELVIS REASON FOR EXAM: Male, 62 years old. NG tube placement TECHNIQUE: 1 view COMPARISON: None. FINDINGS: Enteric tube is in the gastric lumen well below the gastroesophageal junction in the mid stomach. Continued small bowel distention. There is no demonstrated free abdominal air. RAD/Abdomen Single View (Portable) IMPRESSION: Enteric tube is in the gastric lumen well below the gastroesophageal junction. Continued small bowel distention consistent with obstruction. Electronically Signed: Angeli Franklin MD at 20:23 EST , Service support , CC: No Primary Care Physician; Edu Yo DO Switchbox Assembler: Signed CBC W/DIFF, AUTOMATED Collected: 09/03/2018 Status: F Source: [place] 5:01 PM [facility] REPOSITORY TYPE CODE TESTS RESULT OUT OF RANGE REFERENCE UNITS LAB L100.1000 4.4-11.0 K/mm3 Normal WBC 10.1 LAB L100.1200 4.6-6.2 M/mm3 Normal RBC 4.60 LAB L100.1300 13.0-16.5 g/dl Normal HGB 15.4 LAB L100.1400 40-54 % Normal HCT 44.9 LAB L100.1500 80-94 fL High MCV 97.6 LAB L100.1600 27.0-32.0 pg High MCH 33.5 LAB L100.1700 32-36 g/gl Normal MCHC 34.3 LAB L100.1810 11.6-14.6 % Normal RDW CV 12.0 LAB L100.1820 35.1-43.9 fl Normal RDW SD 43.1 LAB L100.1900 150-450 K/mm3 Normal PLT 200 LAB L100.2000 6.2-12.0 fl Normal MPV 9.5 LAB L100.2100 47-70 % High NEUT% 86.6 LAB L100.2200 19-41 % Low LY% 5.4 LAB L100.2300 0-10 % Normal MONO% 7.7 LAB L100.2400 0-5 % Normal EO% 0.1 LAB L100.2500 0-1 % Normal BASO% 0.1 LAB L100.2550 0.0-0.9 % Normal IM GRAN % 0.100 Result Comment: IG% - Immature Granulocytes (promyelocytes, myelocytes and metamyelocytes) > 1% indicates that a LEFT SHIFT is Present. LAB L100.2620 2.0-7.7 X10 3/uL High Absolute Neut 8.7 LAB L100.2720 0.83-4.51 X10 3/ul Low Absolute Lymph 0.54 LAB L100.4500 Normal SMEAR COMMENT SEE COMMENT Result Comment: LYMPHOPENIA NOTED LAB L100.5500 ADEQ PLT EST Normal ADEQUATE LAB L100.7300 ANISO 1+ Normal LAB L100.7800 RARE Normal MACROCYTE Performed By: #### L100.0100 #### [facility] [address] [place], [address] COMPREHENSIVE METABOLIC Collected: 09/03/2018 Status: F Source: [facility] 5:01 PM [facility] REPOSITORY TYPE CODE TESTS RESULT OUT OF RANGE REFERENCE UNITS LAB L501.0100 74-106 mg/dL High GLU 140 Result Comment: Fasting Glucose result greater than or equal to 126 mg/dL suggests DIABETES MELLITUS per A.D.A. criteria. Please note revised GLUCOSE reference range effective 2017. LAB L501.1000 7-18 mg/dL High BUN 20 LAB L501.1100 0.70-1.30 mg/dL High CREAT,SERUM 1.49 Result Comment: The validity of the calculated GFR AND GFRAA in patients over 70 years has not been determined. Clinical correlation is essential. LAB L501.1110 >60 mL/min Low EST GFR 51 Result Comment: Non- GFR Calc LAB L501.1115 >60 mL/min Normal EST GFR - AA 61 Result Comment: GFR Calc LAB L501.1255 ml/min Normal Estimated CRCL 58.35 LAB L501.1300 10-20 RATIO Normal BUN/CRE 13.4 LAB L501.1500 6.4-8. g/dL Normal 2 T PROT 7.0 LAB L501.1800 3.2-5. g/dL Normal 0 ALB 3.9 LAB L501.1950 2.2-4. g/dL Normal 2 GLOB 3.1 LAB L501.2000 0.9-2. RATIO Normal 4 A/G 1.3 LAB L501.2200 8.5-10 mg/dL Normal .1 CA 9.1 LAB L501.4100 15-37 U/L Normal AST 23 LAB L501.4305 45-117 U/L Normal ALK P 70 LAB L501.4405 16-61 U/L Normal ALT 27 LAB L501.4600 0.20-1 mg/dL Normal .00 T BILI 0.90 LAB L501.5300 136-14 mmol/L Normal 5 NA 139 LAB L501.5600 3.5-5. mmol/L Normal 1 K 4.2 LAB L501.5900 98-107 mmol/L Normal CL 104 LAB L501.6100 21.0-3 mmol/L Normal 2.0 CO2 28.0 LAB L501.6200 5-15 Normal GAP 7 Performed By: #### L500.4050, L501.2450 #### [facility] [address] [facility]. [place], [place], [id number] LIPASE Collected: 09/03/2018 Status: F Source: [place] 5:01 PM [facility] REPOSITORY TYPE CODE TESTS RESULT OUT OF RANGE REFERENCE UNITS LAB L501.2450 73-393 U/L Normal LIPASE 293 Performed By: #### L500.4050, L501.2450 #### [facility] [address] [facility] [place], [place], [id number] LACTIC ACID Collected: 09/03/2018 Status: F Source: [place] 5:01 PM [facility] REPOSITORY Order Comment: Yes/No query for Sepsis Lactate Rule Y TYPE CODE TESTS RESULT OUT OF RANGE REFERENCE UNITS LAB L503.6005 0.4-2.0 mmol/L Normal LACTIC ACID 1.3 Performed By: #### L503.6005 #### [facility] [address] [place], [address] ABDOMEN/PELVIS WITH Observed: 09/03/2018 Status: F Source: [place] CONTRAST 4:32 PM [facility] REPOSITORY [facility] Imaging Services [address] [facility] [place] [address] Abdomen/Pelvis WITH Contrast MR#: [id number] Acct: [id number] Name: SIMON PEACOCK Rep #: [id number] : 1955 M 62 From: Emile Gasca MD PCP: Care Physician, No Primary Status: REG ER Study: Abdomen/Pelvis WITH Contrast Date of Exam: 09/03/18 Exam# [id number] Ordering Dr: Edu Yo DO STUDY: CT ABDOMEN AND PELVIS WITH CONTRAST REASON FOR EXAM: Male, 62 years old. Abdominal pain with nausea/emesis. History of colon cancer personally on chemotherapy/immunotherapy. 2. Small bowel obstruction. RADIATION DOSAGE (If Supplied By Facility): CTDIvol = ( 15.14 ) mGy, DLP = ( 939.36 ) mGycm TECHNIQUE: Transaxial images were obtained from the dome of the diaphragm to the symphysis pubis without oral contrast. 75ML ml of Isovue 300 contrast was administered. Sagittal and coronal images were reconstructed. Individualized dose optimization techniques were used for this CT. COMPARISON: None. FINDINGS: Minor linear scarring or subsegmental atelectasis in the periphery of the lung bases. The visualized portions of the heart are within normal limits. Normal liver. The portal vein diameter is 17 mm. Normal gallbladder and extrahepatic biliary system. The common bile duct diameter near the aidan hepatis is 8.5 mm Normal spleen. Normal pancreas. Normal bilateral adrenal glands. The right kidney is surgically absent, and clips are noted at the right renal bed. There is mild left caliectasiss, but no ureteral dilatation. There is mural thickening of the distal esophagus. The stomach is moderately distended with gas and undigested food stuff/vomitus. There are numerous loops of mild to moderately gaseous and fluid distended small bowel leading up to an abrupt transition in the mid to posterior central abdomen (series 2 images 67-73, series 601 images 38-43; series 602 images 76-81). This is in close proximity to a suture line along the anterior margin of the junction of the second and third portions of the duodenum as well as a suture line along the medial margin of the proximal right colon that also borders a dilated small bowel loop in the left flank. The distal small bowel and colon are nondistended. There is non-visualization of the appendix. There is very small volume free fluid in the posterior pelvic region. There is minimal atherosclerotic calcification of the abdominal aorta, without a demonstrated aneurysm. Normal inferior vena cava. A cluster of surgical clips seen in the lateral right pelvis along the proximal right external iliac vessels. Normal urinary bladder. There is a coarse prostatic calcifications. Normal abdominal wall. There are multilevel degenerative changes of the visualized lumbar spine. There is mild rightward subluxation of L3 on L4 and a 25 degree dextroscoliosis centered at L2-3. CT/Abdomen/Pelvis WITH Contrast IMPRESSION: 1. Findings consistent with a significant partial small bowel obstruction with an abrupt transition in the posterior mid abdomen proximity to prior postsurgical change. There is no other demonstrated obstructing pathology, so this may reflect an adhesion. There is moderate distention of the stomach with gas and undigested food status. No free gas. 2. Mural thickening of the distal esophagus, which may reflect local esophagitis. 3. Prior right nephrectomy. There is mild left renal caliectasis. 4. Prior cholecystectomy. The appendix not visualized. 5. Very small volume free fluid in the posterior pelvic region. 6. Degenerative changes of the spine, including mild rightward subluxation of L3 on L4 and dextroscoliosis centered at L2-3. Electronically Signed: Yunier Gasca MD at 18:32 EST , Service support , CC: No Primary Care Physician; Edu Yo DO Switchbox Assembler: Signed IGOR ABS GR + CBC Collected: 08/17/2018 Status: F Source: [place] 11:00 AM [facility] REPOSITORY TYPE CODE TESTS RESULT OUT OF REFERENCE UNITS RANGE LAB WWBC 3.70-11.00 k/uL [facility] WBC 5.39 LAB WRBC 4.20-6.00 m/uL Igor RBC 4.42 LAB WHGB 13.0-17.0 g/dL [place] Hemoglobin 14.8 LAB WHCT 39.0-51.0 % Igor Hematocrit 44.6 LAB WMCV 80.0-100.0 fL Igor High MCV 100.9 LAB WMCH 26.0-34.0 pg Igor MCH 33.5 LAB WMCHC 30.5-36.0 g/dL [facility] MCHC 33.2 LAB WRDW 11.5-15.0 % [facility] RDW 11.9 LAB WPLT 150-400 k/uL Igor Platelet Cnt 203 LAB WMPV 9.0-12.7 fL [facility] MPV 9.9 Result Comment: Test performed at: [facility], [address] [place] [address] Rd[address] [place] [address]. LAB ABGRAN 1.45-7.50 k/uL Absol Gran 3.49 Count BASIC METABOLIC PANL Collected: 08/17/2018 Status: F Source: [place] 11:00 AM [facility] REPOSITORY TYPE CODE TESTS RESULT OUT OF REFERENCE UNITS RANGE LAB GLU 74-99 mg/dL Glucose High 104 LAB BUN 9-24 mg/dL BUN 24 LAB CRET 0.73-1.22 mg/dL High Creatinine 1.27 LAB NA 136-144 mmol/L Sodium 139 LAB K 3.7-5.1 mmol/L Potassium 5.0 LAB CL 97-105 mmol/L Chloride High 106 LAB CO2 22-30 mmol/L CO2 25 LAB AGAP 9-18 mmol/L Low Anion Gap 8 LAB CA 8.5-10.2 mg/dL Calcium, Total 9.5 LAB GFRAA eGFR- >60 Amer. LAB GFRNAA . eGFR-All Other Races 57 Result Comment: eGFR (Estimated GFR) Units of measure: mL/min/1.73 meters squared eGFR is derived from the reexpressed MDRD Study equation using the following parameters: serum creatinine, age, gender and race. The creatinine assay has been calibrated to be traceable to IDTX. An eGFR <60 mL/min/1.73m2 for >3 months is consistent with chronic kidney disease. Refer to KDOQI guidelines for clinical interpretation. In patients with unstable renal function, e.g. those with acute kidney injury, the eGFR may not accurately reflect actual GFR. HEPATIC FUNCTN PANEL Collected: 08/17/2018 Status: F Source: [place] 11:00 [facility] REPOSITORY TYPE CODE TESTS RESULT OUT OF REFERENCE UNITS RANGE LAB ALB 3.9-4.9 g/dL Albumin 4.2 LAB TBIL 0.2-1.3 mg/dL Bilirubin, Total 0.6 LAB CBIL <0.2 mg/dL Bilirubin,Conjuga <0.2 efra LAB ALKP 38-113 U/L Alkaline Phosphatase 64 LAB AST 14-40 U/L AST 23 LAB ALT 10-54 U/L ALT 17 LAB TP 6.3-8.0 g/dL Protein, Total 6.3 MAGNESIUM Collected: 08/17/2018 Status: F Source: [place] 11:00 [facility] REPOSITORY TYPE CODE TESTS RESULT OUT OF REFERENCE UNITS RANGE LAB MG 1.7-2.3 mg/dL Magnesium 2.1 TSH Collected: 08/17/2018 Status: F Source: [place] 11:00 [facility] REPOSITORY TYPE CODE TESTS RESULT OUT OF RANGE REFERENCE UNITS LAB TSH 0.400-5.500 uU/mL TSH 4.050 Performed By: #### TSH, CEA #### [facility] [address] [place], [place] [address] CEA Collected: 08/17/2018 Status: F Source: [place] 11:00 [facility] REPOSITORY TYPE CODE TESTS RESULT OUT OF RANGE REFERENCE UNITS LAB CEA 0.0-2.9 ng/mL High CEA 4.7 Result Comment: Test analyzed by the Dina DxI method. Performed By: #### TSH, CEA #### [facility] [address] [place], [place] [address] PROGRESS Observed: 08/17/2018 Status: COMPLETED Source: [place] 9:57 AM [facility] REPOSITORY HNO ID: [id number] Author: Madison Randall RN, RN Service: (none) Author Type: Registered Nurse Type: Progress Notes Filed: 08/17/2018 11:18 AM Note Text: Activase 2mg inserted into IVAD at 0955(time) per order of Yohan Ordoñez D.O. using a 10ml syringe. Blood aspirate checked at 1025(time) after 30 minutes of dwell time. Port negative for blood return. IVAD rechecked for blood return at 1055(time) after 60 additional minutes of dwell time. Port positive for blood return. 20ml of blood aspirated to remove Activase and residual clot. IVAD flushed with 10ml normal saline. Then labs drawn and flushed with 20 ml NS and 5 ml of heparin flush, gripper removed intact. PROGRESS Observed: 08/17/2018 Status: COMPLETED Source: [place] 9:39 AM [facility] REPOSITORY HNO ID: [id number] Author: Yohan Ordoñez Service: (none) Author Type: Physician Type: Progress Notes Filed: 08/17/2018 10:19 AM Note Text: Diagnosis: 1) Metastatic adenocarcinoma of the colon. 2) Atrial fibrillation secondary to hypomagnesemia. HPI: The patient is a 62 yo male who had a past medical history significant for mild chronic kidney disease. The patient underwent a right sided hemicolectomy on 02/01/2016 after presenting with symptoms concerning for possible bowel obstruction. The pathology demonstrated invasive moderately differentiated adenocarcinoma extending through the bowel wall of the cecum with perforation. Lymphovascular invasion was also observed focally. One of 31 examined lymph nodes was positive for disease. Resection margins were negative. Final pathologic stage was pT4a pN1a stage IIIB. The patient then received adjuvant chemotherapy consisting of FOLFOX which was started on 03/04/2016. Following 6 cycles of therapy, the patient was hospitalized for signs and symptoms of bowel obstruction. During that hospitalization he underwent exploratory laparotomy and was found to have metastatic deposits of disease throughout the mesentery. The pathology report from 05/23/2016 demonstrated within the pathologic specimens there was an area of fat necrosis showing moderately differentiated adenocarcinoma. A right psoas nodule excision demonstrating moderately differentiated adenocarcinoma. Omentum resected in its entirety was negative for malignancy. Right kidney and right ureter, status post nephroureterectomy showed an unremarkable kidney with marked periureteral fibrosis and foci of hemorrhage negative for malignancy. A small bowel nodule was excised and it demonstrated moderately differentiated adenocarcinoma and a resected section of sigmoid colon showing a portion of colon with a minute focus of atypical cells in the serosal surface suspect for carcinoma. He was in the hospital for 19 days. He was discharged and had a follow-up appointment with Dr. Elias on 06/09. FOLFIRI was discussed and recommended. Transferred care here at that time to be closer to home. Previous therapy: 1) FOLFOX x6 cycles. 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 2) FOLFIRI with panitumumab. PD 03/2017. Current therapy: 1) Pembrolizumab. Presents for ongoing oncologic management. Interim history: He offers no complaints today. He's been feeling well. Energy level is normal. He's had no acute illnesses since last seen. His appetite is normal. No abdominal pain, bloating or distention. No nausea or vomiting. No episodes of jaundice. Bowels are working regularly. No signs of GI bleeding including melena and hematochezia. PMH, medications and allergies as below personally reviewed by me today. Any changes documented in appropriate section. ROS: Constitutional: No fever, chills or night sweats. Neuro: Denies BECERRIL, vertigo, dizziness and imbalance. HEENT: No recent change in voice, vision or hearing. Resp: Denies cough, wheeze and hemoptysis. Denies shortness of breath at rest. Denies HOANG. CVS: Denies exertional chest pain, PND, orthopnea and LE edema. GI: Denies dysgeusia. Denies symptoms of stomatitis. : Denies dysuria or gross hematuria. No symptoms of bladder outlet obstruction. Endo: Denies hot flashes. Denies polyuria and polydipsia. Denies heat and cold intolerance. Musculoskeletal: See above. Derm: See above. Heme: Denies unusual bleeding and unexplained bruising. Psych: Normal mood. PHYSICAL EXAM: Vitals: Blood pressure 127/59, pulse 62, temperature 36.9 ?C (98.4 ?F), weight 81 kg (178 lb 8 oz). Well-appearing and in no acute distress. EYES: Sclerae are anicteric bilaterally. NECK: Supple. No enlargement of thyroid. LYMPHATIC: There is no palpable cervical, supraclavicular, axillary adenopathy. RESPIRATORY: Inspiratory breath sounds are of normal intensity in all [place]. No rales, wheezes or rhonchi. Expiratory phase is normal. CARDIOVASCULAR: Rhythm is regular. Normal intensity S1/S2. There is no gallop or murmur. ABD: The abdomen is nondistended. There is no organomegaly or mass appreciated. No tenderness. Extremities: No swelling or edema. SKIN: The generalized hyperpigmentation has improved. No jaundice. 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 No focal motor weakness. MUSCULOSKELETAL: No muscle wasting.. ASSESSMENT/PLAN: (C18.0) Primary cancer of cecum (HCC) (primary encounter diagnosis) (C18.9, C77.2) Colon cancer metastasized to intra-abdominal lymph node (HCC) Assessment: -KPS is 100%. -Biopsy proven metastases to psoas and mesentery. -dMMR. -He is tolerating pembrolizumab for a well with no symptomatic side effect. -Most recent colonoscopy 11/27/2017--no polyps. -We are currently planning CT scans every 6 months or as clinically indicated. Plan: -Continue pembrolizumab. -CT scans in September. Yohan Ordoñez DO CNOVSP Observed: 08/17/2018 Status: COMPLETED Source: [place] 9:30 AM [facility] REPOSITORY Visit (SP) Office ([place]) SIMON PEACOCK ([id number]) 1955 M Date Time Provider Department 08/17/18 9:30 AM YOHAN ORDOÑEZ During your visit today, we recorded the following information about you: Temperature Pulse Blood pressure Weight 98.4 degrees 62/minute 127/59 81 kg Kristal Fernandez LPN, LPN 08/17/2018 9:50 AM Signed Est pt. , tx tomorrow DYLAN Weldon DO 08/17/2018 10:19 AM Signed Diagnosis: 1) Metastatic adenocarcinoma of the colon. 2) Atrial fibrillation secondary to hypomagnesemia. HPI: The patient is a 62 yo male who had a past medical history significant for mild chronic kidney disease. The patient underwent a right sided hemicolectomy on 02/01/2016 after presenting with symptoms concerning for possible bowel obstruction. The pathology demonstrated invasive moderately differentiated adenocarcinoma extending through the bowel wall of the cecum with perforation. Lymphovascular invasion was also observed focally. One of 31 examined lymph nodes was positive for disease. Resection margins were negative. Final pathologic stage was pT4a pN1a stage IIIB. The patient then received adjuvant chemotherapy consisting of FOLFOX which was started on 03/04/2016. Following 6 cycles of therapy, the patient was hospitalized for signs and symptoms of bowel obstruction. During that hospitalization he underwent exploratory laparotomy and was found to have metastatic deposits of disease throughout the mesentery. The pathology report from 05/23/2016 demonstrated within the pathologic specimens there was an area of fat necrosis showing moderately differentiated adenocarcinoma. A right psoas nodule excision demonstrating moderately differentiated adenocarcinoma. Omentum resected in its entirety was negative for malignancy. Right kidney and right ureter, status post nephroureterectomy showed an unremarkable kidney with marked periureteral fibrosis and foci of hemorrhage negative for malignancy. A small bowel nodule was excised and it demonstrated moderately differentiated adenocarcinoma and a resected section of sigmoid colon showing a portion of colon with a minute focus of atypical cells in the serosal surface suspect for carcinoma. He was in the hospital for 19 days. He was discharged and had a follow-up appointment with Dr. Elias on 06/09. FOLFIRI was discussed and recommended. Transferred care here at that time to be closer to home. Previous therapy: 1) FOLFOX x6 cycles. 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 2) FOLFIRI with panitumumab. PD 03/2017. Current therapy: 1) Pembrolizumab. Presents for ongoing oncologic management. Interim history: He offers no complaints today. He's been feeling well. Energy level is normal. He's had no acute illnesses since last seen. His appetite is normal. No abdominal pain, bloating or distention. No nausea or vomiting. No episodes of jaundice. Bowels are working regularly. No signs of GI bleeding including melena and hematochezia. PMH, medications and allergies as below personally reviewed by me today. Any changes documented in appropriate section. ROS: Constitutional: No fever, chills or night sweats. Neuro: Denies BECERRIL, vertigo, dizziness and imbalance. HEENT: No recent change in voice, vision or hearing. Resp: Denies cough, wheeze and hemoptysis. Denies shortness of breath at rest. Denies HOANG. CVS: Denies exertional chest pain, PND, orthopnea and LE edema. GI: Denies dysgeusia. Denies symptoms of stomatitis. : Denies dysuria or gross hematuria. No symptoms of bladder outlet obstruction. Endo: Denies hot flashes. Denies polyuria and polydipsia. Denies heat and cold intolerance. Musculoskeletal: See above. Derm: See above. Heme: Denies unusual bleeding and unexplained bruising. Psych: Normal mood. PHYSICAL EXAM: Vitals: Blood pressure 127/59, pulse 62, temperature 36.9 ?C (98.4 ?F), weight 81 kg (178 lb 8 oz). Well-appearing and in no acute distress. EYES: Sclerae are anicteric bilaterally. NECK: Supple. No enlargement of thyroid. LYMPHATIC: There is no palpable cervical, supraclavicular, axillary adenopathy. RESPIRATORY: Inspiratory breath sounds are of normal intensity in all townsend. No rales, wheezes or rhonchi. Expiratory phase is normal. CARDIOVASCULAR: Rhythm is regular. Normal intensity S1/S2. There is no gallop or murmur. ABD: The abdomen is nondistended. There is no organomegaly or mass appreciated. No tenderness. Extremities: No swelling or edema. SKIN: The generalized hyperpigmentation has improved. No jaundice. 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 No focal motor weakness. MUSCULOSKELETAL: No muscle wasting.. ASSESSMENT/PLAN: (C18.0) Primary cancer of cecum (HCC) (primary encounter diagnosis) (C18.9, C77.2) Colon cancer metastasized to intra-abdominal lymph node (HCC) Assessment: -KPS is 100%. -Biopsy proven metastases to psoas and mesentery. -dMMR. -He is tolerating pembrolizumab for a well with no symptomatic side effect. -Most recent colonoscopy 11/27/2017--no polyps. -We are currently planning CT scans every 6 months or as clinically indicated. Plan: -Continue pembrolizumab. -CT scans in September. DO Elke Castellano LPN 08/17/2018 10:05 AM Signed Influenza Vaccine Documentation: ? Patient is identified by name and date of : Yes ? Patient is older than 6 months of age: Yes ? Patient denies a severe allergy to any vaccine component or to a previous dose of influenza vaccine: Yes FOR EGG ALLERGY CONCERNS, REFER TO PROVIDER. ? Denies allergy to gelatin, formaldehyde, thimerosol :Yes ? Patient is afebrile and not moderately or severely ill: Yes ? Does the patient have a history of Guillain ?[place] Syndrome (a severe paralytic illness): No ? Denies bone marrow transplant prior 6 months or solid organ transplant prior 3 months: Yes ? Denies a history of fainting after a prior injection or medical procedure? Yes If patient has fainted in the past, the CDC recommends sitting or lying down for 15 minutes after the vaccination. ? VIS sheet provided: Yes ? See Immunization Form in [facility] for details of immunizations administered today. If patient reports dizziness, vision changes or ringing in the ears post vaccination ? please have patient sit or lie down for 15 minutes. 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 Discontinue saline lock post exam. If Pt. has a central line or IVAD, may access for administration according to line specific nursing protocol. Once exam is complete flush line and de-access according to line specific nursing protocol in the CT contrast administration guidelines link.Disp: 1 EachRfl: 0 enteric contrast (will be provided with radiology test)For CT CHESTABD/PEL W IVCON Routine order Administer, As Directed One Time Only, via Oral, Rectal, both Oral and Rectal, Enteric Tube, Stoma or Indwelling Catheter, Enteric Contrast as designated per enteric contrast guidelinesDisp: 1 EachRfl: 0 [] influenza vaccine 60 mcg (Patients 3 to 64 years) (PF) (FLUZONE )Disp: Rfl: Follow-up and Disposition History Recorded Prescriptions as of 08/17/2018 Sig: IV CONTRAST (RADIOLOGY PROCED* CT Chest ABD/PEL-Inject, intr* ENTERIC CONTRAST (RADIOLOGY P* For CT CHESTABD/PEL W IVCON R* More... Problem List As Of Date 08/17/2018 Noted Resolved Ceruminosis [H61.20] INVALID FOR*09/02/2016 Priority: A More... 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 , tx tomorrow Kristal Fernandez LPN >> Elke Amos LPN ThuAug 17, 2018 10:04 AM Status: Signed Influenza Vaccine Documentation: ? Patient is identified by name and date of : Yes ? Patient is older than 6 months of age: Yes ? Patient denies a severe allergy to any vaccine component or to a previous dose of influenza vaccine: Yes FOR EGG ALLERGY CONCERNS, REFER TO PROVIDER. ? Denies allergy to gelatin, formaldehyde, thimerosol :Yes ? Patient is afebrile and not moderately or severely ill: Yes ? Does the patient have a history of Guillain ?[place] Syndrome (a severe paralytic illness): No ? Denies bone marrow transplant prior 6 months or solid organ transplant prior 3 months: Yes ? Denies a history of fainting after a prior injection or medical procedure? Yes If patient has fainted in the past, the CDC recommends sitting or lying down for 15 minutes after the vaccination. ? VIS sheet provided: Yes ? See Immunization Form in EpicCare for details of immunizations administered today. If patient reports dizziness, vision changes or ringing in the ears post vaccination ? please have patient sit or lie down for 15 minutes. Encounter Status:Closed by YOHAN ORDOÑEZ DO on 08/17/18 TSH Collected: 07/28/2018 Status: F Source: [place] 11:38 AM [facility] REPOSITORY TYPE CODE TESTS RESULT OUT OF RANGE REFERENCE UNITS LAB TSH 0.400-5.500 uU/mL TSH 4.090 Performed By: #### TSH, CEA #### [facility] [address] [address] CEA Collected: 07/28/2018 Status: F Source: [place] 11:38 AM [facility] REPOSITORY TYPE CODE TESTS RESULT OUT OF RANGE REFERENCE UNITS LAB CEA 0.0-2.9 ng/mL High CEA 4.4 Result Comment: Test analyzed by the Dina DxI method. Performed By: #### TSH, CEA #### [facility] [address] [address] BASIC METABOLIC PANL Collected: 07/28/2018 Status: F Source: [place] 11:37 AM [facility] REPOSITORY TYPE CODE TESTS RESULT OUT OF REFERENCE UNITS RANGE LAB GLU 74-99 mg/dL Glucose High 101 LAB BUN 7-21 mg/dL BUN High 24 LAB CRET 0.73-1.22 mg/dL High Creatinine 1.28 LAB NA 136-144 mmol/L Sodium 139 LAB K 3.7-5.1 mmol/L Potassium 5.0 LAB CL 97-105 mmol/L Chloride High 108 LAB CO2 22-30 mmol/L CO2 24 LAB AGAP 9-18 mmol/L Low Anion Gap 7 LAB CA 8.5-10.2 mg/dL Calcium, Total 9.6 LAB GFRAA eGFR- >60 Amer. LAB GFRNAA . eGFR-All Other Races 57 Result Comment: eGFR (Estimated GFR) Units of measure: mL/min/1.73 meters squared eGFR is derived from the reexpressed MDRD Study equation using the following parameters: serum creatinine, age, gender and race. The creatinine assay has been calibrated to be traceable to IDMS. An eGFR <60 mL/min/1.73m2 for >3 months is consistent with chronic kidney disease. Refer to KDOQI guidelines for clinical interpretation. In patients with unstable renal function, e.g. those with acute kidney injury, the eGFR may not accurately reflect actual GFR. HEPATIC FUNCTN PANEL Collected: 07/28/2018 Status: F Source: [place] 11:37 AM [facility] REPOSITORY TYPE CODE TESTS RESULT OUT OF REFERENCE UNITS RANGE LAB ALB 3.9-4.9 g/dL Albumin 4.2 LAB TBIL 0.2-1.3 mg/dL Bilirubin, Total 0.6 LAB CBIL <0.2 mg/dL Bilirubin,Conjuga <0.2 efra LAB ALKP 38-113 U/L Alkaline Phosphatase 59 LAB AST 14-40 U/L AST 25 LAB ALT 10-54 U/L ALT 18 LAB TP 6.3-8.0 g/dL Low Protein, Total 6.0 MAGNESIUM Collected: 07/28/2018 Status: F Source: [place] 11:37 AM [facility] REPOSITORY TYPE CODE TESTS RESULT OUT OF REFERENCE UNITS RANGE LAB MG 1.7-2.3 mg/dL Magnesium 1.9 IGOR ABS GR + CBC Collected: 07/28/2018 Status: F Source: [place] 11:36 AM [facility] REPOSITORY TYPE CODE TESTS RESULT OUT OF REFERENCE UNITS RANGE LAB WWBC 3.70-11.00 k/uL [place] WBC 4.32 LAB WRBC 4.20-6.00 m/uL [place] RBC 4.22 LAB WHGB 13.0-17.0 g/dL Igor Hemoglobin 14.2 LAB WHCT 39.0-51.0 % [place] Hematocrit 42.7 LAB WMCV 80.0-100.0 fL [place] High MCV 101.2 LAB WMCH 26.0-34.0 pg Igor MCH 33.6 LAB WMCHC 30.5-36.0 g/dL [place] MCHC 33.3 LAB WRDW 11.5-15.0 % Igor RDW 11.9 LAB WPLT 150-400 k/uL [place] Platelet Cnt 180 LAB WMPV 9.0-12.7 fL [place] MPV 9.9 Result Comment: Test performed at: [facility], [address] [place] [address]. LAB ABGRAN 1.45-7.50 k/uL Absol Gran 2.54 Count PROGRESS Observed: 07/06/2018 Status: COMPLETED Source: [place] 9:16 AM [facility] REPOSITORY HNO ID: [id number] Author: Yohan Ordoñez Service: (none) Author Type: Physician Type: Progress Notes Filed: 07/06/2018 9:22 AM Note Text: Diagnosis: 1) Metastatic adenocarcinoma of the colon. 2) Atrial fibrillation secondary to hypomagnesemia. HPI: The patient is a 62 yo male who had a past medical history significant for mild chronic kidney disease. The patient underwent a right sided hemicolectomy on 02/01/2016 after presenting with symptoms concerning for possible bowel obstruction. The pathology demonstrated invasive moderately differentiated adenocarcinoma extending through the bowel wall of the cecum with perforation. Lymphovascular invasion was also observed focally. One of 31 examined lymph nodes was positive for disease. Resection margins were negative. Final pathologic stage was pT4a pN1a stage IIIB. The patient then received adjuvant chemotherapy consisting of FOLFOX which was started on 03/04/2016. Following 6 cycles of therapy, the patient was hospitalized for signs and symptoms of bowel obstruction. During that hospitalization he underwent exploratory laparotomy and was found to have metastatic deposits of disease throughout the mesentery. The pathology report from 05/23/2016 demonstrated within the pathologic specimens there was an area of fat necrosis showing moderately differentiated adenocarcinoma. A right psoas nodule excision demonstrating moderately differentiated adenocarcinoma. Omentum resected in its entirety was negative for malignancy. Right kidney and right ureter, status post nephroureterectomy showed an unremarkable kidney with marked periureteral fibrosis and foci of hemorrhage negative for malignancy. A small bowel nodule was excised and it demonstrated moderately differentiated adenocarcinoma and a resected section of sigmoid colon showing a portion of colon with a minute focus of atypical cells in the serosal surface suspect for carcinoma. He was in the hospital for 19 days. He was discharged and had a follow-up appointment with Dr. Elias on 06/09. FOLFIRI was discussed and recommended. Transferred care here at that time to be closer to home. Previous therapy: 1) FOLFOX x6 cycles. 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 2) FOLFIRI with panitumumab. PD 03/2017. Current therapy: 1) Pembrolizumab. Presents for ongoing oncologic management. Interim history: No complaints. His appetite is normal. He has no dysgeusia or symptoms of stomatitis. No dysphagia or odynophagia. No nausea or vomiting. No abdominal pain, bloating or distention. Bowels are working regularly and normally. No signs of GI bleeding. No episodes of jaundice. PMH, medications and allergies as below personally reviewed by me today. Any changes documented in appropriate section. ROS: Constitutional: No fever, chills or night sweats. Neuro: Denies BECERRIL, vertigo, dizziness and imbalance. HEENT: No recent change in voice, vision or hearing. Resp: Denies cough, wheeze and hemoptysis. Denies shortness of breath at rest. Denies HOANG. CVS: Denies exertional chest pain, PND, orthopnea and LE edema. GI: Denies dysgeusia. Denies symptoms of stomatitis. : Denies dysuria or gross hematuria. No symptoms of bladder outlet obstruction. Endo: Denies hot flashes. Denies polyuria and polydipsia. Denies heat and cold intolerance. Musculoskeletal: See above. Derm: See above. Heme: Denies unusual bleeding and unexplained bruising. Psych: Normal mood. PHYSICAL EXAM: Vitals: Blood pressure 117/71, pulse 60, temperature 36.4 ?C (97.5 ?F), temperature source Oral, weight 81.4 kg (179 lb 8 oz). Well-appearing and in no acute distress. EYES: Sclerae are anicteric bilaterally. NECK: Supple. No enlargement of thyroid. LYMPHATIC: There is no palpable cervical, supraclavicular, axillary adenopathy. RESPIRATORY: Inspiratory breath sounds are of normal intensity in all [place]. No rales, wheezes or rhonchi. Expiratory phase is normal. CARDIOVASCULAR: Rhythm is regular. Normal intensity S1/S2. There is no gallop or murmur. ABD: The abdomen is nondistended. There is no organomegaly or mass appreciated. No tenderness. Extremities: No swelling or edema. SKIN: The generalized hyperpigmentation is stable. No jaundice. 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 No focal motor weakness. MUSCULOSKELETAL: No muscle wasting.. ASSESSMENT/PLAN: (C18.0) Primary cancer of cecum (HCC) (primary encounter diagnosis) (C18.9, C77.2) Colon cancer metastasized to intra-abdominal lymph node (HCC) Assessment: -KPS is 100%. -Biopsy proven metastases to psoas and mesentery. -dMMR. -He is tolerating pembrolizumab for a well with no symptomatic side effect. -Most recent colonoscopy 11/27/2017--no polyps. -CTs in September--six months from March if no clinical reason to do them sooner. Plan: -Continue pembrolizumab. -CT scans as above. Yohan Ordoñez, DO STORYIGOR ABS GR + CBC Collected: 07/06/2018 Status: F Source: [place] 8:55 AM [facility] REPOSITORY TYPE CODE TESTS RESULT OUT OF REFERENCE UNITS RANGE LAB WWBC 3.70-11.00 k/uL [place] WBC 4.07 LAB WRBC 4.20-6.00 m/uL I[place] RBC 4.37 LAB WHGB 13.0-17.0 g/dL [place] Hemoglobin 14.6 LAB WHCT 39.0-51.0 % [place] Hematocrit 44.0 LAB WMCV 80.0-100.0 fL Igor High MCV 100.7 LAB WMCH 26.0-34.0 pg [place] MCH 33.4 LAB WMCHC 30.5-36.0 g/dL [place] MCHC 33.2 LAB WRDW 11.5-15.0 % Igor RDW 11.9 LAB WPLT 150-400 k/uL [place] Platelet Cnt 210 LAB WMPV 9.0-12.7 fL [place] MPV 9.6 Result Comment: Test performed at: [facility], [address] [place] [address]. LAB ABGRAN 1.45-7.50 k/uL Absol Gran 2.48 Count BMP PLUS FHC Collected: 07/06/2018 Status: F Source: [place] 8:55 AM [facility] REPOSITORY TYPE CODE TESTS RESULT OUT OF REFERENCE UNITS RANGE LAB NA 128-145 mmol/L Sodium 141 LAB K 3.6-5.1 mmol/L Potassium 4.8 LAB CL 98-108 mmol/L Chloride 105 LAB CO2 18-33 mmol/L CO2 29 LAB CRET 0.6-1.2 mg/dL Creatinine 1.20 LAB BUN 7-22 mg/dL BUN 22 LAB GLU 73-118 mg/dL Glucose 113 LAB CA 8.0-10.3 mg/dL Calcium, Total 9.3 LAB MG 1.6-2.3 mg/dL Magnesium 1.9 LAB AGAP 9-18 mmol/L Low Anion Gap 7 LAB GFRAA eGFR- >60 Amer. LAB GFRNAA . eGFR-All Other Races >60 Result Comment: eGFR (Estimated GFR) Units of measure: mL/min/1.73 meters squared eGFR is derived from the reexpressed MDRD Study equation using the following parameters: serum creatinine, age, gender and race. The creatinine assay has been calibrated to be traceable to IDMS. An eGFR <60 mL/min/1.73m2 for >3 months is consistent with chronic kidney disease. Refer to KDOQI guidelines for clinical interpretation. In patients with unstable renal function, e.g. those with acute kidney injury, the eGFR may not accurately reflect actual GFR. HEPATIC FUNCTN PANEL Collected: 07/06/2018 Status: F Source: [place] 8:55 AM [facility] REPOSITORY TYPE CODE TESTS RESULT OUT OF REFERENCE UNITS RANGE LAB ALB 3.9-4.9 g/dL Albumin 4.2 LAB TBIL 0.2-1.3 mg/dL Bilirubin, Total 0.5 LAB CBIL <0.2 mg/dL Bilirubin,Conjuga <0.2 efra LAB ALKP 38-113 U/L Alkaline Phosphatase 61 LAB AST 14-40 U/L AST 32 LAB ALT 10-54 U/L ALT 24 LAB TP 6.3-8.0 g/dL Protein, Total 6.6 Performed By: #### HFP, TSH, CEA #### [facility] [address], [place] [address] TSH Collected: 07/06/2018 Status: F Source: [place] 8:55 AM [facility] REPOSITORY TYPE CODE TESTS RESULT OUT OF RANGE REFERENCE UNITS LAB TSH 0.400-5.500 uU/mL TSH 4.610 Performed By: #### HFP, TSH, CEA #### [facility] [address], [place] [address] CEA Collected: 07/06/2018 Status: F Source: [place] 8:55 AM [facility] REPOSITORY TYPE CODE TESTS RESULT OUT OF RANGE REFERENCE UNITS LAB CEA 0.0-2.9 ng/mL High CEA 3.8 Result Comment: Test analyzed by the Dina DxI method. Performed By: #### HFP, TSH, CEA #### [facility] [address], [place] [address] CNOVSP Observed: 07/06/2018 Status: COMPLETED Source: [place] 8:50 AM [facility] REPOSITORY Visit (SP) Office ([place]) SIMON PEACOCK ([id number]) 1955 M Date Time Provider Department 07/06/18 8:50 AM YOHAN ORDOÑEZ During your visit today, we recorded the following information about you: Temperature Pulse Blood pressure Weight 97.5 degrees 60/minute 117/71 81.4 kg Yohan Ordoñez DO 07/06/2018 9:22 AM Signed Diagnosis: 1) Metastatic adenocarcinoma of the colon. 2) Atrial fibrillation secondary to hypomagnesemia. HPI: The patient is a 62 yo male who had a past medical history significant for mild chronic kidney disease. The patient underwent a right sided hemicolectomy on 02/01/2016 after presenting with symptoms concerning for possible bowel obstruction. The pathology demonstrated invasive moderately differentiated adenocarcinoma extending through the bowel wall of the cecum with perforation. Lymphovascular invasion was also observed focally. One of 31 examined lymph nodes was positive for disease. Resection margins were negative. Final pathologic stage was pT4a pN1a stage IIIB. The patient then received adjuvant chemotherapy consisting of FOLFOX which was started on 03/04/2016. Following 6 cycles of therapy, the patient was hospitalized for signs and symptoms of bowel obstruction. During that hospitalization he underwent exploratory laparotomy and was found to have metastatic deposits of disease throughout the mesentery. The pathology report from 05/23/2016 demonstrated within the pathologic specimens there was an area of fat necrosis showing moderately differentiated adenocarcinoma. A right psoas nodule excision demonstrating moderately differentiated adenocarcinoma. Omentum resected in its entirety was negative for malignancy. Right kidney and right ureter, status post nephroureterectomy showed an unremarkable kidney with marked periureteral fibrosis and foci of hemorrhage negative for malignancy. A small bowel nodule was excised and it demonstrated moderately differentiated adenocarcinoma and a resected section of sigmoid colon showing a portion of colon with a minute focus of atypical cells in the serosal surface suspect for carcinoma. He was in the hospital for 19 days. He was discharged and had a follow-up appointment with Dr. Elias on 06/09. FOLFIRI was discussed and recommended. Transferred care here at that time to be closer to home. Previous therapy: 1) FOLFOX x6 cycles. 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 2) FOLFIRI with panitumumab. PD 03/2017. Current therapy: 1) Pembrolizumab. Presents for ongoing oncologic management. Interim history: No complaints. His appetite is normal. He has no dysgeusia or symptoms of stomatitis. No dysphagia or odynophagia. No nausea or vomiting. No abdominal pain, bloating or distention. Bowels are working regularly and normally. No signs of GI bleeding. No episodes of jaundice. PMH, medications and allergies as below personally reviewed by me today. Any changes documented in appropriate section. ROS: Constitutional: No fever, chills or night sweats. Neuro: Denies BECERRIL, vertigo, dizziness and imbalance. HEENT: No recent change in voice, vision or hearing. Resp: Denies cough, wheeze and hemoptysis. Denies shortness of breath at rest. Denies HOANG. CVS: Denies exertional chest pain, PND, orthopnea and LE edema. GI: Denies dysgeusia. Denies symptoms of stomatitis. : Denies dysuria or gross hematuria. No symptoms of bladder outlet obstruction. Endo: Denies hot flashes. Denies polyuria and polydipsia. Denies heat and cold intolerance. Musculoskeletal: See above. Derm: See above. Heme: Denies unusual bleeding and unexplained bruising. Psych: Normal mood. PHYSICAL EXAM: Vitals: Blood pressure 117/71, pulse 60, temperature 36.4 ?C (97.5 ?F), temperature source Oral, weight 81.4 kg (179 lb 8 oz). Well-appearing and in no acute distress. EYES: Sclerae are anicteric bilaterally. NECK: Supple. No enlargement of thyroid. LYMPHATIC: There is no palpable cervical, supraclavicular, axillary adenopathy. RESPIRATORY: Inspiratory breath sounds are of normal intensity in all [place]. No rales, wheezes or rhonchi. Expiratory phase is normal. CARDIOVASCULAR: Rhythm is regular. Normal intensity S1/S2. There is no gallop or murmur. ABD: The abdomen is nondistended. There is no organomegaly or mass appreciated. No tenderness. Extremities: No swelling or edema. SKIN: The generalized hyperpigmentation is stable. No jaundice. 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 No focal motor weakness. MUSCULOSKELETAL: No muscle wasting.. ASSESSMENT/PLAN: (C18.0) Primary cancer of cecum (HCC) (primary encounter diagnosis) (C18.9, C77.2) Colon cancer metastasized to intra-abdominal lymph node (HCC) Assessment: -KPS is 100%. -Biopsy proven metastases to psoas and mesentery. -dMMR. -He is tolerating pembrolizumab for a well with no symptomatic side effect. -Most recent colonoscopy 11/27/2017--no polyps. -CTs in September--six months from March if no clinical reason to do them sooner. Plan: -Continue pembrolizumab. -CT scans as above. 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 Problem List As Of Date 07/06/2018 Noted Resolved Ceruminosis [H61.20] INVALID FOR*09/02/2016 Priority: A More... 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] INVALID FOR* Dehydration [E86.0] INVALID FOR* CKD (chronic kidney disease) stage 2, GFR 60-89*INVALID FOR* Encounter Status:Closed by YOHAN ORDOÑEZ DO on 07/06/18 HEPATIC FUNCTN PANEL Collected: 06/16/2018 Status: F Source: [place] 10:23 AM [facility] REPOSITORY TYPE CODE TESTS RESULT OUT OF REFERENCE UNITS RANGE LAB ALB 3.9-4.9 g/dL Albumin 3.9 LAB TBIL 0.2-1.3 mg/dL Bilirubin, Total 0.6 LAB CBIL <0.2 mg/dL Bilirubin,Conjuga <0.2 efra LAB ALKP 38-113 U/L Alkaline Phosphatase 58 LAB AST 14-40 U/L AST 31 LAB ALT 10-54 U/L ALT 21 LAB TP 6.3-8.0 g/dL Low Protein, Total 6.2 Performed By: #### HFP, TSH, CEA #### [facility] [address], [place] [address] TSH Collected: 06/16/2018 Status: F Source: [place] 10:23 AM [facility] REPOSITORY TYPE CODE TESTS RESULT OUT OF RANGE REFERENCE UNITS LAB TSH 0.400-5.500 uU/mL TSH 3.700 Performed By: #### HFP, TSH, CEA #### [facility] [address], [place] [address] CEA Collected: 06/16/2018 Status: F Source: [place] 10:23 AM [facility] REPOSITORY TYPE CODE TESTS RESULT OUT OF RANGE REFERENCE UNITS LAB CEA 0.0-2.9 ng/mL High CEA 4.4 Result Comment: Test analyzed by the Dina DxI method. Performed By: #### HFP, TSH, CEA #### [facility] [address], [place] [address] BMP PLUS [facility] Collected: 06/16/2018 Status: F Source: [place] 10:22 AM [facility] REPOSITORY TYPE CODE TESTS RESULT OUT OF REFERENCE UNITS RANGE LAB NA 128-145 mmol/L Sodium 141 LAB K 3.6-5.1 mmol/L Potassium 4.7 LAB CL 98-108 mmol/L Chloride 105 LAB CO2 18-33 mmol/L CO2 27 LAB CRET 0.6-1.2 mg/dL Creatinine 1.00 LAB BUN 7-22 mg/dL BUN 20 LAB GLU 73-118 mg/dL Glucose 101 LAB CA 8.0-10.3 mg/dL Calcium, Total 9.0 LAB MG 1.6-2.3 mg/dL Magnesium 1.9 LAB AGAP 9-18 mmol/L Anion Gap 9 LAB GFRAA eGFR- >60 Amer. LAB GFRNAA . eGFR-All Other Races >60 Result Comment: eGFR (Estimated GFR) Units of measure: mL/min/1.73 meters squared eGFR is derived from the reexpressed MDRD Study equation using the following parameters: serum creatinine, age, gender and race. The creatinine assay has been calibrated to be traceable to IDMS. An eGFR <60 mL/min/1.73m2 for >3 months is consistent with chronic kidney disease. Refer to KDOQI guidelines for clinical interpretation. In patients with unstable renal function, e.g. those with acute kidney injury, the eGFR may not accurately reflect actual GFR. IGOR ABS GR + CBC Collected: 06/16/2018 Status: F Source: [place] 10:22 AM [facility] REPOSITORY TYPE CODE TESTS RESULT OUT OF REFERENCE UNITS RANGE LAB WWBC 3.70-11.00 k/uL [facility] WBC 4.45 LAB WRBC 4.20-6.00 m/uL Low [place] RBC 4.15 LAB WHGB 13.0-17.0 g/dL [place] Hemoglobin 13.8 LAB WHCT 39.0-51.0 % [facility] Hematocrit 41.8 LAB WMCV 80.0-100.0 fL [place] High MCV 100.7 LAB WMCH 26.0-34.0 pg [place] MCH 33.3 LAB WMCHC 30.5-36.0 g/dL [place] MCHC 33.0 LAB WRDW 11.5-15.0 % [facility] RDW 11.8 LAB WPLT 150-400 k/uL [place] Platelet Cnt 193 LAB WMPV 9.0-12.7 fL [place] MPV 10.4 Result Comment: Test performed at: [facility], [address] [place] [address] [address] [place] [address]. LAB ABGRAN 1.45-7.50 k/uL Absol Gran 2.86 Count CEA Collected: 05/26/2018 Status: F Source: [place] 10:40 AM [facility] REPOSITORY TYPE CODE TESTS RESULT OUT OF RANGE REFERENCE UNITS LAB CEA 0.0-2.9 ng/mL High CEA 4.0 Result Comment: Test analyzed by the [employer] DxI method. Performed By: #### CEA #### [facility] [address] [address] IGOR ABS GR + CBC Collected: 05/25/2018 Status: F Source: [place] 11:53 AM [facility] REPOSITORY TYPE CODE TESTS RESULT OUT OF REFERENCE UNITS RANGE LAB WWBC 3.70-11.00 k/uL [place] WBC 3.82 LAB WRBC 4.20-6.00 m/uL Low [place] RBC 4.07 LAB WHGB 13.0-17.0 g/dL [place] Hemoglobin 13.7 LAB WHCT 39.0-51.0 % [place] Hematocrit 41.0 LAB WMCV 80.0-100.0 fL [place] High MCV 100.7 LAB WMCH 26.0-34.0 pg [place] MCH 33.7 LAB WMCHC 30.5-36.0 g/dL [place] MCHC 33.4 LAB WRDW 11.5-15.0 % [place] RDW 12.0 LAB WPLT 150-400 k/uL [place] Platelet Cnt 180 LAB WMPV 9.0-12.7 fL [place] MPV 10.0 Result Comment: Test performed at: [facility], [address] [place] [address]. LAB ABGRAN 1.45-7.50 k/uL Absol Gran 2.10 Count BMP PLUS FHC Collected: 05/25/2018 Status: F Source: [place] 11:53 AM [facility] REPOSITORY TYPE CODE TESTS RESULT OUT OF REFERENCE UNITS RANGE LAB NA 128-145 mmol/L Sodium 139 LAB K 3.6-5.1 mmol/L Potassium 4.3 LAB CL 98-108 mmol/L Chloride 107 LAB CO2 18-33 mmol/L CO2 27 LAB CRET 0.6-1.2 mg/dL High Creatinine 1.40 LAB BUN 7-22 mg/dL BUN 20 LAB GLU 73-118 mg/dL Glucose 96 LAB CA 8.0-10.3 mg/dL Calcium, Total 9.1 LAB MG 1.6-2.3 mg/dL Magnesium 1.9 LAB AGAP 9-18 mmol/L Low Anion Gap 5 LAB GFRAA eGFR- >60 Amer. LAB GFRNAA . eGFR-All Other Races 51 Result Comment: eGFR (Estimated GFR) Units of measure: mL/min/1.73 meters squared eGFR is derived from the reexpressed MDRD Study equation using the following parameters: serum creatinine, age, gender and race. The creatinine assay has been calibrated to be traceable to IDMS. An eGFR <60 mL/min/1.73m2 for >3 months is consistent with chronic kidney disease. Refer to KDOQI guidelines for clinical interpretation. In patients with unstable renal function, e.g. those with acute kidney injury, the eGFR may not accurately reflect actual GFR. HEPATIC FUNCTN PANEL Collected: 05/25/2018 Status: F Source: [place] 11:53 AM [facility] REPOSITORY TYPE CODE TESTS RESULT OUT OF REFERENCE UNITS RANGE LAB ALB 3.9-4.9 g/dL Albumin 4.1 LAB TBIL 0.2-1.3 mg/dL Bilirubin, Total 0.9 LAB CBIL <0.2 mg/dL Bilirubin,Conjuga <0.2 efra LAB ALKP 36-108 U/L Alkaline Phosphatase 55 LAB AST 14-40 U/L AST 33 LAB ALT 10-54 U/L ALT 22 LAB TP 6.3-8.0 g/dL Low Protein, Total 5.9 Performed By: #### HFP, TSH #### [facility] [address], [place] [address] TSH Collected: 05/25/2018 Status: F Source: [place] 11:53 AM [facility] REPOSITORY TYPE CODE TESTS RESULT OUT OF RANGE REFERENCE UNITS LAB TSH 0.400-5.500 uU/mL TSH 2.820 Performed By: #### HFP, TSH #### [facility] [address] [place], [place] [address] PROGRESS Observed: 05/25/2018 Status: COMPLETED Source: [place] 10:33 AM [facility] REPOSITORY HNO ID: [id number] Author: Rashmi Justin (Rn) RUBÉN Mccarthy Service: (none) Author Type: Registered Nurse Type: Progress Notes Filed: 05/25/2018 11:58 AM Note Text: Activase 2mg inserted into IVAD at 1032(time) per order of Yohan Ordoñez D.O. using a 10ml syringe. Blood aspirate checked at 1106(time) after 30 minutes of dwell time. Port negative for blood return. IVAD rechecked for blood return at 1136(time) after 30 additional minutes of dwell time. Port positive for blood return. 10ml of blood aspirated to remove Activase and residual clot. IVAD flushed with 10ml normal saline blood drawn PROGRESS Observed: 05/25/2018 Status: COMPLETED Source: [place] 10:25 AM [facility] REPOSITORY HNO ID: [id number] Author: Yohan Ordoñez Service: (none) Author Type: Physician Type: Progress Notes Filed: 05/25/2018 10:48 AM Note Text: Diagnosis: 1) Metastatic adenocarcinoma of the colon. 2) Atrial fibrillation secondary to hypomagnesemia. HPI: The patient is a 62 yo male who had a past medical history significant for mild chronic kidney disease. The patient underwent a right sided hemicolectomy on 02/01/2016 after presenting with symptoms concerning for possible bowel obstruction. The pathology demonstrated invasive moderately differentiated adenocarcinoma extending through the bowel wall of the cecum with perforation. Lymphovascular invasion was also observed focally. One of 31 examined lymph nodes was positive for disease. Resection margins were negative. Final pathologic stage was pT4a pN1a stage IIIB. The patient then received adjuvant chemotherapy consisting of FOLFOX which was started on 03/04/2016. Following 6 cycles of therapy, the patient was hospitalized for signs and symptoms of bowel obstruction. During that hospitalization he underwent exploratory laparotomy and was found to have metastatic deposits of disease throughout the mesentery. The pathology report from 05/23/2016 demonstrated within the pathologic specimens there was an area of fat necrosis showing moderately differentiated adenocarcinoma. A right psoas nodule excision demonstrating moderately differentiated adenocarcinoma. Omentum resected in its entirety was negative for malignancy. Right kidney and right ureter, status post nephroureterectomy showed an unremarkable kidney with marked periureteral fibrosis and foci of hemorrhage negative for malignancy. A small bowel nodule was excised and it demonstrated moderately differentiated adenocarcinoma and a resected section of sigmoid colon showing a portion of colon with a minute focus of atypical cells in the serosal surface suspect for carcinoma. He was in the hospital for 19 days. He was discharged and had a follow-up appointment with Dr. Elias on 06/09. FOLFIRI was discussed and recommended. Transferred care here at that time to be closer to home. Previous therapy: 1) FOLFOX x6 cycles. 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 2) FOLFIRI with panitumumab. PD 03/2017. Current therapy: 1) Pembrolizumab. Presents for ongoing oncologic management. Interim history: He continues to tolerate treatment very well. He says he has no side effects from the keytruda whatsoever. He is not having any significant fatigue. Appetite is normal. No abdominal bloating, pain or distention. Bowels are working normally and regularly. No signs of GI bleeding. No nausea or vomiting. No dermatologic side effect. His knee/patellar fracture is well healed and he has no chronic pain. He remains very active. PMH, medications and allergies as below personally reviewed by me today. Any changes documented in appropriate section. ROS: Constitutional: No fever, chills or night sweats. Neuro: Denies BECERRIL, vertigo, dizziness and imbalance. HEENT: No recent change in voice, vision or hearing. Resp: Denies cough, wheeze and hemoptysis. Denies shortness of breath at rest. Denies HOANG. CVS: Denies exertional chest pain, PND, orthopnea and LE edema. GI: Denies dysgeusia. Denies symptoms of stomatitis. : Denies dysuria or gross hematuria. No symptoms of bladder outlet obstruction. Endo: Denies hot flashes. Denies polyuria and polydipsia. Denies heat and cold intolerance. Musculoskeletal: See above. Derm: See above. Heme: Denies unusual bleeding and unexplained bruising. Psych: Normal mood. PHYSICAL EXAM: Vitals: Blood pressure 105/54, pulse 63, temperature 36.8 ?C (98.3 ?F), temperature source Oral, weight 80.3 kg (177 lb). Well-appearing and in no acute distress. EYES: Sclerae are anicteric bilaterally. NECK: Supple. No enlargement of thyroid. LYMPHATIC: There is no palpable cervical, supraclavicular, axillary adenopathy. RESPIRATORY: Inspiratory breath sounds are of normal intensity in all [place]. No rales, wheezes or rhonchi. Expiratory phase is normal. CARDIOVASCULAR: Rhythm is regular. Normal intensity S1/S2. There is no gallop or murmur. ABD: The abdomen is nondistended. There is no organomegaly or mass appreciated. No tenderness. Extremities: No swelling or edema. SKIN: The generalized hyperpigmentation is stable. No jaundice. 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 No focal motor weakness. MUSCULOSKELETAL: No muscle wasting.. ASSESSMENT/PLAN: (C18.0) Primary cancer of cecum (HCC) (primary encounter diagnosis) (C18.9, C77.2) Colon cancer metastasized to intra-abdominal lymph node (HCC) Assessment: -KPS is 100%. -Biopsy proven metastases to psoas and mesentery. -dMMR. -He is tolerating pembrolizumab for a well with no symptomatic side effect. -Most recent colonoscopy 11/27/2017--no polyps. -Some bump in CEA several weeks ago. Today's level pending. I discussed this with him that if CEA is trending upward we may consider scan sooner than July, but he remains completely asymptomatic from his disease and for now we'll continue present therapy. Plan: -Continue pembrolizumab. -CT scans as above. Yohan Ordoñez DO CNOVSP Observed: 05/25/2018 Status: COMPLETED Source: [place] 10:10 AM [facility] REPOSITORY Visit (SP) Office (HEMAWS) SIMON PEACOCK ([id number]) 1955 M Date Time Provider Department 05/25/18 10:10 AM YOHAN ORDOÑEZ During your visit today, we recorded the following information about you: Temperature Pulse Blood pressure Weight 98.3 degrees 63/minute 105/54 80.3 kg Yohan Ordoñez DO 05/25/2018 10:48 AM Signed Diagnosis: 1) Metastatic adenocarcinoma of the colon. 2) Atrial fibrillation secondary to hypomagnesemia. HPI: The patient is a 62 yo male who had a past medical history significant for mild chronic kidney disease. The patient underwent a right sided hemicolectomy on 02/01/2016 after presenting with symptoms concerning for possible bowel obstruction. The pathology demonstrated invasive moderately differentiated adenocarcinoma extending through the bowel wall of the cecum with perforation. Lymphovascular invasion was also observed focally. One of 31 examined lymph nodes was positive for disease. Resection margins were negative. Final pathologic stage was pT4a pN1a stage IIIB. The patient then received adjuvant chemotherapy consisting of FOLFOX which was started on 03/04/2016. Following 6 cycles of therapy, the patient was hospitalized for signs and symptoms of bowel obstruction. During that hospitalization he underwent exploratory laparotomy and was found to have metastatic deposits of disease throughout the mesentery. The pathology report from 05/23/2016 demonstrated within the pathologic specimens there was an area of fat necrosis showing moderately differentiated adenocarcinoma. A right psoas nodule excision demonstrating moderately differentiated adenocarcinoma. Omentum resected in its entirety was negative for malignancy. Right kidney and right ureter, status post nephroureterectomy showed an unremarkable kidney with marked periureteral fibrosis and foci of hemorrhage negative for malignancy. A small bowel nodule was excised and it demonstrated moderately differentiated adenocarcinoma and a resected section of sigmoid colon showing a portion of colon with a minute focus of atypical cells in the serosal surface suspect for carcinoma. He was in the hospital for 19 days. He was discharged and had a follow-up appointment with Dr. Elias on 06/09. FOLFIRI was discussed and recommended. Transferred care here at that time to be closer to home. Previous therapy: 1) FOLFOX x6 cycles. 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 2) FOLFIRI with panitumumab. PD 03/2017. Current therapy: 1) Pembrolizumab. Presents for ongoing oncologic management. Interim history: He continues to tolerate treatment very well. He says he has no side effects from the keytruda whatsoever. He is not having any significant fatigue. Appetite is normal. No abdominal bloating, pain or distention. Bowels are working normally and regularly. No signs of GI bleeding. No nausea or vomiting. No dermatologic side effect. His knee/patellar fracture is well healed and he has no chronic pain. He remains very active. PMH, medications and allergies as below personally reviewed by me today. Any changes documented in appropriate section. ROS: Constitutional: No fever, chills or night sweats. Neuro: Denies BECERRIL, vertigo, dizziness and imbalance. HEENT: No recent change in voice, vision or hearing. Resp: Denies cough, wheeze and hemoptysis. Denies shortness of breath at rest. Denies HOANG. CVS: Denies exertional chest pain, PND, orthopnea and LE edema. GI: Denies dysgeusia. Denies symptoms of stomatitis. : Denies dysuria or gross hematuria. No symptoms of bladder outlet obstruction. Endo: Denies hot flashes. Denies polyuria and polydipsia. Denies heat and cold intolerance. Musculoskeletal: See above. Derm: See above. Heme: Denies unusual bleeding and unexplained bruising. Psych: Normal mood. PHYSICAL EXAM: Vitals: Blood pressure 105/54, pulse 63, temperature 36.8 ?C (98.3 ?F), temperature source Oral, weight 80.3 kg (177 lb). Well-appearing and in no acute distress. EYES: Sclerae are anicteric bilaterally. NECK: Supple. No enlargement of thyroid. LYMPHATIC: There is no palpable cervical, supraclavicular, axillary adenopathy. RESPIRATORY: Inspiratory breath sounds are of normal intensity in all [place]. No rales, wheezes or rhonchi. Expiratory phase is normal. CARDIOVASCULAR: Rhythm is regular. Normal intensity S1/S2. There is no gallop or murmur. ABD: The abdomen is nondistended. There is no organomegaly or mass appreciated. No tenderness. Extremities: No swelling or edema. SKIN: The generalized hyperpigmentation is stable. No jaundice. 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 No focal motor weakness. MUSCULOSKELETAL: No muscle wasting.. ASSESSMENT/PLAN: (C18.0) Primary cancer of cecum (HCC) (primary encounter diagnosis) (C18.9, C77.2) Colon cancer metastasized to intra-abdominal lymph node (HCC) Assessment: -KPS is 100%. -Biopsy proven metastases to psoas and mesentery. -dMMR. -He is tolerating pembrolizumab for a well with no symptomatic side effect. -Most recent colonoscopy 11/27/2017--no polyps. -Some bump in CEA several weeks ago. Today's level pending. I discussed this with him that if CEA is trending upward we may consider scan sooner than July, but he remains completely asymptomatic from his disease and for now we'll continue present therapy. Plan: -Continue pembrolizumab. -CT scans as above. 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 Problem List As Of Date 05/25/2018 Noted Resolved Ceruminosis [H61.20] INVALID FOR*09/02/2016 Priority: A More... 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] INVALID FOR* Dehydration [E86.0] INVALID FOR* CKD (chronic kidney disease) stage 2, GFR 60-89*INVALID FOR* Encounter Status:Closed by YOHAN ORDOÑEZ DO on 05/25/18 IGOR ABS GR + CBC Collected: 05/04/2018 Status: F Source: [place] 10:10 AM [facility] REPOSITORY TYPE CODE TESTS RESULT OUT OF REFERENCE UNITS RANGE LAB WWBC 3.70-11.00 k/uL [place] WBC 4.38 LAB WRBC 4.20-6.00 m/uL [place] RBC 4.22 LAB WHGB 13.0-17.0 g/dL [place] Hemoglobin 14.3 LAB WHCT 39.0-51.0 % [place] Hematocrit 41.2 LAB WMCV 80.0-100.0 fL [place] MCV 97.6 LAB WMCH 26.0-34.0 pg [place] MCH 33.9 LAB WMCHC 30.5-36.0 g/dL [place] MCHC 34.7 LAB WRDW 11.5-15.0 % [place] RDW 12.0 LAB WPLT 150-400 k/uL [place] Platelet Cnt 206 LAB WMPV 9.0-12.7 fL [place] MPV 9.5 Result Comment: Test performed at: [facility], [address] [place] [address] [address] [place] [address]. LAB ABGRAN 1.45-7.50 k/uL Absol Gran 2.56 Count BMP PLUS [facility]HC Collected: 05/04/2018 Status: F Source: [place] 10:10 AM [facility] REPOSITORY TYPE CODE TESTS RESULT OUT OF REFERENCE UNITS RANGE LAB NA 128-145 mmol/L Sodium 139 LAB K 3.6-5.1 mmol/L Potassium 4.5 LAB CL 98-108 mmol/L Chloride 107 LAB CO2 18-33 mmol/L CO2 28 LAB CRET 0.6-1.2 mg/dL High Creatinine 1.60 LAB BUN 7-22 mg/dL BUN 21 LAB GLU 73-118 mg/dL Glucose 93 LAB CA 8.0-10.3 mg/dL Calcium, Total 9.2 LAB MG 1.6-2.3 mg/dL Magnesium 2.0 LAB AGAP 9-18 mmol/L Low Anion Gap 4 LAB GFRAA eGFR- 53 Amer. LAB GFRNAA . eGFR-All Other Races 44 Result Comment: eGFR (Estimated GFR) Units of measure: mL/min/1.73 meters squared eGFR is derived from the reexpressed MDRD Study equation using the following parameters: serum creatinine, age, gender and race. The creatinine assay has been calibrated to be traceable to IDMS. An eGFR <60 mL/min/1.73m2 for >3 months is consistent with chronic kidney disease. Refer to KDOQI guidelines for clinical interpretation. In patients with unstable renal function, e.g. those with acute kidney injury, the eGFR may not accurately reflect actual GFR. HEPATIC FUNCTN PANEL Collected: 05/04/2018 Status: F Source: [place] 10:10 AM [facility] REPOSITORY TYPE CODE TESTS RESULT OUT OF REFERENCE UNITS RANGE LAB ALB 3.9-4.9 g/dL Albumin 4.3 LAB TBIL 0.2-1.3 mg/dL Bilirubin, Total 1.0 LAB CBIL <0.2 mg/dL High Bilirubin,Conjuga 0.2 efra LAB ALKP 36-108 U/L Alkaline Phosphatase 61 LAB AST 14-40 U/L AST 35 LAB ALT 10-54 U/L ALT 23 LAB TP 6.3-8.0 g/dL Protein, Total 6.3 Performed By: #### HFP, TSH, CEA #### [facility] [address] [place], [place] [address] TSH Collected: 05/04/2018 Status: F Source: [place] 10:10 AM [facility] REPOSITORY TYPE CODE TESTS RESULT OUT OF RANGE REFERENCE UNITS LAB TSH 0.400-5.500 uU/mL TSH 3.550 Performed By: #### HFP, TSH, CEA #### [facility] [address] [place], [place] [address] CEA Collected: 05/04/2018 Status: F Source: [place] 10:10 AM [facility] REPOSITORY TYPE CODE TESTS RESULT OUT OF RANGE REFERENCE UNITS LAB CEA 0.0-2.9 ng/mL High CEA 5.7 Result Comment: Test analyzed by the [employer] DxI method. Performed By: #### HFP, TSH, CEA #### [facility] [address] [place], [place] [address] CNOVSP Observed: 04/12/2018 Status: COMPLETED Source: [place] 8:30 AM [facility] REPOSITORY Visit (SP) Office (HEMAWS) SIMON PEACOCK ([id number]) 1955 M Date Time Provider Department 04/12/18 8:30 AM YOHAN ORDOÑEZ During your visit today, we recorded the following information about you: Temperature Pulse Blood pressure Weight 98.2 degrees 67/minute 116/63 80.5 kg Yohan Ordoñez DO 04/12/2018 8:43 AM Signed Diagnosis: 1) Metastatic adenocarcinoma of the colon. 2) Atrial fibrillation secondary to hypomagnesemia. HPI: The patient is a 62 yo male who had a past medical history significant for mild chronic kidney disease. The patient underwent a right sided hemicolectomy on 02/01/2016 after presenting with symptoms concerning for possible bowel obstruction. The pathology demonstrated invasive moderately differentiated adenocarcinoma extending through the bowel wall of the cecum with perforation. Lymphovascular invasion was also observed focally. One of 31 examined lymph nodes was positive for disease. Resection margins were negative. Final pathologic stage was pT4a pN1a stage IIIB. The patient then received adjuvant chemotherapy consisting of FOLFOX which was started on 03/04/2016. Following 6 cycles of therapy, the patient was hospitalized for signs and symptoms of bowel obstruction. During that hospitalization he underwent exploratory laparotomy and was found to have metastatic deposits of disease throughout the mesentery. The pathology report from 05/23/2016 demonstrated within the pathologic specimens there was an area of fat necrosis showing moderately differentiated adenocarcinoma. A right psoas nodule excision demonstrating moderately differentiated adenocarcinoma. Omentum resected in its entirety was negative for malignancy. Right kidney and right ureter, status post nephroureterectomy showed an unremarkable kidney with marked periureteral fibrosis and foci of hemorrhage negative for malignancy. A small bowel nodule was excised and it demonstrated moderately differentiated adenocarcinoma and a resected section of sigmoid colon showing a portion of colon with a minute focus of atypical cells in the serosal surface suspect for carcinoma. He was in the hospital for 19 days. He was discharged and had a follow-up appointment with Dr. Elias on 06/09. FOLFIRI was discussed and recommended. Transferred care here at that time to be closer to home. Previous therapy: 1) FOLFOX x6 cycles. 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 2) FOLFIRI with panitumumab. PD 03/2017. Current therapy: 1) Pembrolizumab. Presents for ongoing oncologic management. Interim history: Doing well with no symptomatic side effect from Keytruda. No rash or diarrhea. Great energy level. PMH, medications and allergies as below personally reviewed by me today. Any changes documented in appropriate section. ROS: Constitutional: No fever, chills or night sweats. Neuro: Denies BECERRIL, vertigo, dizziness and imbalance. HEENT: No recent change in voice, vision or hearing. Resp: Denies cough, wheeze and hemoptysis. Denies shortness of breath at rest. Denies HOANG. CVS: Denies exertional chest pain, PND, orthopnea and LE edema. GI: Denies dysgeusia. Denies symptoms of stomatitis. : Denies dysuria or gross hematuria. No symptoms of bladder outlet obstruction. Endo: Denies hot flashes. Denies polyuria and polydipsia. Denies heat and cold intolerance. Musculoskeletal: See above. Derm: No rash or pruritis. Heme: Denies unusual bleeding and unexplained bruising. Psych: Normal mood. PHYSICAL EXAM: Vitals: Blood pressure 116/63, pulse 67, temperature 36.8 ?C (98.2 ?F), temperature source Oral, weight 80.5 kg (177 lb 8 oz). Well-appearing and in no acute distress. EYES: Sclerae are anicteric bilaterally. NECK: Supple. No enlargement of thyroid. LYMPHATIC: There is no palpable cervical, supraclavicular, axillary adenopathy. RESPIRATORY: Inspiratory breath sounds are of normal intensity in all [place]. No rales, wheezes or rhonchi. Expiratory phase is normal. CARDIOVASCULAR: Rhythm is regular. Normal intensity S1/S2. There is no gallop or murmur. ABD: The abdomen is nondistended. There is no organomegaly or mass appreciated. No tenderness. Extremities: No swelling or edema. SKIN: The generalized hyperpigmentation is stable. No jaundice. 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 No focal motor weakness. MUSCULOSKELETAL: No muscle wasting.. ASSESSMENT/PLAN: (C18.0) Primary cancer of cecum (HCC) (primary encounter diagnosis) (C18.9, C77.2) Colon cancer metastasized to intra-abdominal lymph node (HCC) Assessment: -KPS is 90%. -Biopsy proven metastases to psoas and mesentery. -dMMR. -He is tolerating pembrolizumab for a well with no symptomatic side effect. -Most recent colonoscopy 11/27/2017--no polyps. -Reviewed CTs in detail with him. TERRIE. Possible stable malignant LN retroperitoneum. Plan: -Continue pembrolizumab. -CT scans in 3 months. 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 More... Problem List As Of Date 04/12/2018 Noted Resolved Ceruminosis [H61.20] INVALID FOR*09/02/2016 Priority: A More... 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 2) Atrial fibrillation secondary to hypomagnesemia. HPI: The patient is a 62 yo male who had a past medical history significant for mild chronic kidney disease. The patient underwent a right sided hemicolectomy on 02/01/2016 after presenting with symptoms concerning for possible bowel obstruction. The pathology demonstrated invasive moderately differentiated adenocarcinoma extending through the bowel wall of the cecum with perforation. Lymphovascular invasion was also observed focally. One of 31 examined lymph nodes was positive for disease. Resection margins were negative. Final pathologic stage was pT4a pN1a stage IIIB. The patient then received adjuvant chemotherapy consisting of FOLFOX which was started on 03/04/2016. Following 6 cycles of therapy, the patient was hospitalized for signs and symptoms of bowel obstruction. During that hospitalization he underwent exploratory laparotomy and was found to have metastatic deposits of disease throughout the mesentery. The pathology report from 05/23/2016 demonstrated within the pathologic specimens there was an area of fat necrosis showing moderately differentiated adenocarcinoma. A right psoas nodule excision demonstrating moderately differentiated adenocarcinoma. Omentum resected in its entirety was negative for malignancy. Right kidney and right ureter, status post nephroureterectomy showed an unremarkable kidney with marked periureteral fibrosis and foci of hemorrhage negative for malignancy. A small bowel nodule was excised and it demonstrated moderately differentiated adenocarcinoma and a resected section of sigmoid colon showing a portion of colon with a minute focus of atypical cells in the serosal surface suspect for carcinoma. He was in the hospital for 19 days. He was discharged and had a follow-up appointment with Dr. Elias on 9/19. FOLFIRI was discussed and recommended. Transferred care here at that time to be closer to home. Previous therapy: 1) FOLFOX x6 cycles. 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 2) FOLFIRI with panitumumab. PD 03/2017. Current therapy: 1) Pembrolizumab. Presents for ongoing oncologic management. Interim history: Doing well with no symptomatic side effect from Keytruda. No rash or diarrhea. Great energy level. PMH, medications and allergies as below personally reviewed by me today. Any changes documented in appropriate section. ROS: Constitutional: No fever, chills or night sweats. Neuro: Denies BECERRIL, vertigo, dizziness and imbalance. HEENT: No recent change in voice, vision or hearing. Resp: Denies cough, wheeze and hemoptysis. Denies shortness of breath at rest. Denies HOANG. CVS: Denies exertional chest pain, PND, orthopnea and LE edema. GI: Denies dysgeusia. Denies symptoms of stomatitis. : Denies dysuria or gross hematuria. No symptoms of bladder outlet obstruction. Endo: Denies hot flashes. Denies polyuria and polydipsia. Denies heat and cold intolerance. Musculoskeletal: See above. Derm: No rash or pruritis. Heme: Denies unusual bleeding and unexplained bruising. Psych: Normal mood. PHYSICAL EXAM: Vitals: Blood pressure 116/63, pulse 67, temperature 36.8 ?C (98.2 ?F), temperature source Oral, weight 80.5 kg (177 lb 8 oz). Well-appearing and in no acute distress. EYES: Sclerae are anicteric bilaterally. NECK: Supple. No enlargement of thyroid. LYMPHATIC: There is no palpable cervical, supraclavicular, axillary adenopathy. RESPIRATORY: Inspiratory breath sounds are of normal intensity in all [place]. No rales, wheezes or rhonchi. Expiratory phase is normal. CARDIOVASCULAR: Rhythm is regular. Normal intensity S1/S2. There is no gallop or murmur. ABD: The abdomen is nondistended. There is no organomegaly or mass appreciated. No tenderness. Extremities: No swelling or edema. SKIN: The generalized hyperpigmentation is stable. No jaundice. 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 No focal motor weakness. MUSCULOSKELETAL: No muscle wasting.. ASSESSMENT/PLAN: (C18.0) Primary cancer of cecum (HCC) (primary encounter diagnosis) (C18.9, C77.2) Colon cancer metastasized to intra-abdominal lymph node (HCC) Assessment: -KPS is 90%. -Biopsy proven metastases to psoas and mesentery. -dMMR. -He is tolerating pembrolizumab for a well with no symptomatic side effect. -Most recent colonoscopy 11/27/2017--no polyps. -Reviewed CTs in detail with him. TERRIE. Possible stable malignant LN retroperitoneum. Plan: -Continue pembrolizumab. -CT scans in 3 months. Yohan Ordoñez, DO IGOR ABS GR + CBC Collected: 04/12/2018 Status: F Source: [place] 8:25 AM [facility] REPOSITORY TYPE CODE TESTS RESULT OUT OF REFERENCE UNITS RANGE LAB WWBC 3.70-11.00 k/uL [facility] WBC 4.28 LAB WRBC 4.20-6.00 m/uL [facility] RBC 4.33 LAB WHGB 13.0-17.0 g/dL [facility] Hemoglobin 14.3 LAB WHCT 39.0-51.0 % [facility] Hematocrit 43.3 LAB WMCV 80.0-100.0 fL [facility] MCV 100.0 LAB WMCH 26.0-34.0 pg [facility] MCH 33.0 LAB WMCHC 30.5-36.0 g/dL [facility] MCHC 33.0 LAB WRDW 11.5-15.0 % [facility] RDW 11.9 LAB WPLT 150-400 k/uL [facility] Platelet Cnt 182 LAB WMPV 9.0-12.7 fL [facility] MPV 9.7 Result Comment: Test performed at: [facility], [address] [place] [address] Rd[address] [place] [address]. LAB ABGRAN 1.45-7.50 k/uL Absol Gran 2.86 Count BMP PLUS FHC Collected: 04/12/2018 Status: F Source: [place] 8:25 AM [facility] REPOSITORY TYPE CODE TESTS RESULT OUT OF REFERENCE UNITS RANGE LAB NA 128-145 mmol/L Sodium 138 LAB K 3.6-5.1 mmol/L Potassium 4.9 LAB CL 98-108 mmol/L Chloride High 110 LAB CO2 18-33 mmol/L CO2 25 LAB CRET 0.6-1.2 mg/dL High Creatinine 1.30 LAB BUN 7-22 mg/dL BUN 22 LAB GLU 73-118 mg/dL Glucose 109 LAB CA 8.0-10.3 mg/dL Calcium, Total 9.1 LAB MG 1.6-2.3 mg/dL Magnesium 1.8 LAB AGAP 9-18 mmol/L Low Anion Gap 3 LAB GFRAA eGFR- >60 Amer. LAB GFRNAA . eGFR-All Other Races 56 Result Comment: eGFR (Estimated GFR) Units of measure: mL/min/1.73 meters squared eGFR is derived from the reexpressed MDRD Study equation using the following parameters: serum creatinine, age, gender and race. The creatinine assay has been calibrated to be traceable to IDMS. An eGFR <60 mL/min/1.73m2 for >3 months is consistent with chronic kidney disease. Refer to KDOQI guidelines for clinical interpretation. In patients with unstable renal function, e.g. those with acute kidney injury, the eGFR may not accurately reflect actual GFR. HEPATIC FUNCTN PANEL Collected: 04/12/2018 Status: F Source: [place] 8:25 AM [facility] REPOSITORY TYPE CODE TESTS RESULT OUT OF REFERENCE UNITS RANGE LAB ALB 3.9-4.9 g/dL Albumin 4.0 LAB TBIL 0.2-1.3 mg/dL Bilirubin, Total 0.5 LAB CBIL <0.2 mg/dL Bilirubin,Conjuga <0.2 efra LAB ALKP 36-108 U/L Alkaline Phosphatase 60 LAB AST 14-40 U/L AST 26 LAB ALT 10-54 U/L ALT 19 LAB TP 6.3-8.0 g/dL Low Protein, Total 6.2 Performed By: #### HFP, TSH, CEA #### [facility] [address] [place], [place] [address] TSH Collected: 04/12/2018 Status: F Source: [place] 8:25 AM [facility] REPOSITORY TYPE CODE TESTS RESULT OUT OF RANGE REFERENCE UNITS LAB TSH 0.400-5.500 uU/mL High TSH 5.580 Performed By: #### HFP, TSH, CEA #### [facility] [address] [place], [place] [address] CEA Collected: 04/12/2018 Status: F Source: [place] 8:25 AM [facility] REPOSITORY TYPE CODE TESTS RESULT OUT OF RANGE REFERENCE UNITS LAB CEA 0.0-2.9 ng/mL High CEA 3.3 Result Comment: Test analyzed by the [employer] DxI method. Performed By: #### HFP, TSH, CEA #### [facility] [address] [place], [place] [address] PROGRESS Observed: 04/06/2018 Status: COMPLETED Source: [place] 12:58 PM [facility] REPOSITORY HNO ID: [id number] Author: Sara Mchugh Service: (none) Author Type: (none) Type: Progress Notes Filed: 04/06/2018 12:59 PM Note Text: Radiology Service Progress Note PATIENT NAME: Simon Peacock DATE OF SERVICE: April 06, 2018 TIME: 12:58 PM PATIENT IDENTITY VERIFICATION COMPLETED USING TWO (2) METHODS: Patient confirmed name verbally and Date of . PATIENT GENDER DATA: Male PATIENT RELEVANT IMPLANT DATA REVIEWED: Not Applicable CONTRAST INDUCED NEPHROPATHY RISK FACTORS: Patient age > 60 years CREATININE: Creatinine Date Value Ref Range Status 03/19/2018 1.50 (H) 0.6 - 1.2 mg/dL Final 11/17/2017 1.47 (H) 0.73 - 1.22 mg/dL Final 10/06/2017 1.45 (H) 0.73 - 1.22 mg/dL Final Creatinine, Whole Blood (iSTAT) Date Value Ref Range Status 03/01/2018 1.40 0.70 - 1.40 mg/dL Final 02/08/2018 1.40 0.70 - 1.40 mg/dL Final 01/18/2018 1.40 0.70 - 1.40 mg/dL Final eGFR-All Other Races Date Value Ref Range Status 03/19/2018 47 . Final Comment: eGFR (Estimated GFR) Units of measure: mL/min/1.73 meters squared eGFR is derived from the reexpressed MDRD Study equation using the following parameters: serum creatinine, age, gender and race. The creatinine assay has been calibrated to be traceable to IDMS. An eGFR <60 mL/min/1.73m2 for >3 months is consistent with chronic kidney disease. Refer to KDOQI guidelines for clinical interpretation. In patients with unstable renal function, e.g. those with acute kidney injury, the eGFR may not accurately reflect actual GFR. eGFR- Date Value Ref Range Status 03/19/2018 57 Final P.O.C.T. RESULTS: POC done: Yes, See Lab Tab April 06, 2018 RADIOLOGIST NOTIFIED?: No ALLERGIES: Reviewed and unchanged CONTRAST ALLERGY: NO. PERIPHERAL IV ACCESS: power port accessed by [employer] RADIOLOGY DEPARTMENT: CT; Exam(s) Completed: Chest Abdomen Pelvis SIGNED BY: Sara Crow Ct April 06, 2018 12:[address] ABD/PEL W IVCON Observed: 04/06/2018 Status: F Source: [place] 12:39 PM [facility] REPOSITORY * * *Final Report* * * DATE OF EXAM: Apr 06 2018 12:39PM [facility] 0530 - CT ABD/PEL W IVCON / PROCEDURE REASON: multiple diagnoses * * * * Physician Interpretation * * * * EXAMINATION: CT ABDOMEN AND PELVIS WITH IV CONTRAST CLINICAL HISTORY: 62-year-old male with history of right-sided hemicolectomy on 02/01/2016 after presenting with symptoms concerning for possible bowel obstruction. The pathology demonstrated invasive moderately differentiated adenocarcinoma extending through the bowel wall of the cecum with perforation. Lymphovascular invasion was also observed focally. One of 31 examined lymph nodes was positive for disease. Resection margins were negative. Final pathologic stage was pT4a pN1a stage IIIB. TECHNIQUE: CT of the abdomen and pelvis was performed using standard technique, scanning from just above the dome of the diaphragm to the symphysis pubis. MQ: CTAP_3 Contrast: Other: 100 ml of Omnipaque 300 Oral: 50 ml of 50ML Omnipaque [address] Radiation dose: Integrated Dose-length product (DLP) for this visit = 854 mGy*cm. CT Dose Reduction Employed: Automated exposure control (AEC) COMPARISON: Multiple priors, the most recent being 2017 RESULT: Liver: No mass. Biliary: No bile duct dilation. Spleen: No mass. No splenomegaly. Pancreas: No mass or duct dilation. Adrenals: No mass. Kidneys: Patient is status post right nephrectomy. No mass present in the nephrectomy bed. There are peripelvic cysts in the left kidney which is otherwise unremarkable. No hydronephrosis. GI tract: No dilation or wall thickening. Moderate volume of stool throughout the colon. Lymph nodes: Left pericaval node near the hepatic hilum measures 1.4 x 2.4 cm (7:33), unchanged from priors. No other adenopathy within the abdomen or pelvis. Mesentery/Peritoneum: No ascites or mass. Retroperitoneum: No mass. Vasculature: The celiac axis and SMA are patent. The portal vein and branches, splenic vein, SMV, and hepatic veins are patent. Arterial atherosclerotic disease without aneurysm. Pelvis: No mass, ascites or fluid collection. The bladder is unremarkable. No pelvic adenopathy. Bones/Soft Tissues: Degenerative changes and dextroscoliosis of the lumbar spine. There are degenerative changes at the pubic symphysis with small effusion. There is no neoplastic bone lesion. Lower thorax: A chest CT performed will be reported separately. IMPRESSION: Unchanged paracaval node when compared to 06/12/2017. No other findings of recurrent/metastatic disease in the abdomen or pelvis. Switchbox Assembler: SHYLA Transcribe Date/Time: Apr 07 2018 8:19A Dictated by : GAGAN JOHNSON MD This examination was interpreted and the report reviewed and electronically signed by: GAGAN JOHNSON MD on Apr 07 2018 8:39AM EST [id number] CT CHEST W IVCON Observed: 04/06/2018 Status: F Source: [place] 12:39 PM [facility] REPOSITORY * * *Final Report* * * DATE OF EXAM: Apr 06 2018 12:39PM [facility] 0539 - CT CHEST W IVCON / PROCEDURE REASON: Malignant neoplasm of ascending colon * * * * Physician Interpretation * * * * EXAMINATION: CHEST CT WITH CONTRAST CLINICAL HISTORY: Malignant neoplasm of ascending colon Technique: Spiral CT acquisition of the chest from the thoracic inlet to the upper abdomen following IV contrast. MQ: CTCWR_5 Contrast: 100 mL Omnipaque [address] Dose-Length Product: 854 mGy*cm CT Dose Reduction Employed: Automated exposure control (AEC) Comparison: CT chest on 2017 RESULT: Limitations: None. Lines, tubes, and devices: Stable right chest port catheter. Lung parenchyma and pleura: The central airways remain patent. There are irregular patchy consolidations in the right middle lobe and bandlike opacities in right lower lobe, similar to prior study. Stable subpleural lines in the left lower lobe. There are stable foci of calcifications in the right lower lobe. No concerning noncalcified pulmonary nodules. No masses. No new consolidative opacities identified. No pleural effusions or pneumothorax. Thoracic inlet, heart, and mediastinum: Stable thyroid gland. No supraclavicular, axillary or mediastinal lymphadenopathy. The thoracic aorta, central pulmonary arteries and cardiac chambers are unchanged. No pericardial effusion or thickening. There is a small hiatal hernia. Bones and soft tissues: No destructive bone lesion. Chest wall is unremarkable. Upper abdomen: A dedicated CT abdomen and pelvis was performed concurrently and has been reported separately. IMPRESSION: Stable bilateral lungs and mediastinum with no new nodules or lymphadenopathy seen. Switchbox Assembler: SHYLA Transcribe Date/Time: Apr 07 2018 8:24A Dictated by : SHAKIRA CHAUDHRY MD This examination was interpreted and the report reviewed and electronically signed by: SHAKIRA CHAUDHRY MD on Apr 07 2018 9:19AM EST [id number] XR KNEE SPECIFY 1V Observed: 03/26/2018 Status: F Source: [facility] 9:30 AM [facility] REPOSITORY * * *Final Report* * * DATE OF EXAM: Mar 26 2018 9:30AM [facility] [id number] - XR KNEE SPECIFY 1V LT / PROCEDURE REASON: Unspecified fracture of left patella, subsequent encounter for closed fracture w * * * * Physician Interpretation * * * * LEFT knee HISTORY: 62 years old Clinical information: Unspecified fracture of left patella, subsequent encounter for closed fracture with routine healing merchant view for a fx patella rechek merchant view for a fx patella rechek TECHNIQUE: Images: XR KNEE SPECIFY 1V LT Comparison: 02/17/2018. RESULT: Findings: Fracture through the lateral aspect of patella similar to the previous study.. IMPRESSION: No significant interval change.. Switchbox Assembler: SHYLA Transcribe Date/Time: Mar 26 2018 1:44P Dictated by : EVE PINA DO This examination was interpreted and the report reviewed and electronically signed by: EVE PINA DO on Mar 26 2018 1:45PM EST [id number] PROGRESS Observed: 03/26/2018 Status: COMPLETED Source: [place] 9:24 AM [facility] REPOSITORY HNO ID: [id number] Author: Annita Ocampo Service: (none) Author Type: (none) Type: Progress Notes Filed: 03/26/2018 9:25 AM Note Text: Radiology Service Progress Note PATIENT NAME: Simon Peacock DATE OF SERVICE: March 26, 2018 TIME: 9:24 AM PATIENT IDENTITY VERIFICATION COMPLETED USING TWO (2) METHODS: Patient confirmed name verbally and Date of . PATIENT GENDER DATA: Male PATIENT RELEVANT IMPLANT DATA REVIEWED: Not Applicable RADIOLOGY DEPARTMENT: General X-ray: Exam(s) Completed: Lower Extremity X-Ray(s): Knee, AP Only Left: PERIPHERAL IV DATA: Not applicable merchant view SIGNED BY: Annita Ocampo March 26, 2018 9:24 AM PROGRESS Observed: 03/26/2018 Status: COMPLETED Source: [place] 9:19 AM [facility] REPOSITORY HNO ID: [id number] Author: Cory Mejia V Service: (none) Author Type: Physician Type: Progress Notes Filed: 03/26/2018 9:45 AM Note Text: FRACTURE FOLLOW-UP Mr. Peacock presents today for his follow-up visit from: Left patella fracture He is 12 weeks post-injury and was last seen 4 weeks ago. History: his pain intensity is 0/10. He reports compliance with T-ROM brace locked at 90' flexion He reports no change in past medical AND surgical history, medications, allergies, social history, family history and review of systems since last visit, with the exception of the following: None Radiographs: Radiographs today revealed vertical patella fracture with appropriated alignement without displacement. Otherwise, osseous and soft tissue structures within normal limits. Physical Examination: mild tenderness about the patella with direct palpation, mild prepatellar effusion Positive EHL, FHL, AT, GS, Quads, and HS Positive distal pulses Negative Emma's, calf tenderness or palpable cords PROCEDURE: Not applicable Impression: Closed fracture left patella with routine healing Plan: DiscontinueT-ROM May advance activity to tolerance Follow-up GENESISN Cory Mejia DO PROGRESS Observed: 03/26/2018 Status: COMPLETED Source: [place] 9:06 AM [facility] REPOSITORY HNO ID: [id number] Author: Nella Gomes Ma Service: (none) Author Type: (none) Type: Progress Notes Filed: 03/26/2018 9:45 AM Note Text: AMB ROOMING INTAKE FLOWSHEET DATA Risk Screening Do you have concerns about personal safety or safety in the home?: No CNOV Observed: 03/26/2018 Status: COMPLETED Source: [place] 9:00 AM [facility] REPOSITORY Office Visit ([facility]) SIMON PEACOCK ([id number]) 1955 M Date Time Provider Department 03/26/18 9:00 AM CORY MEJIA During your visit today, we recorded the following information about you: Nella Gomes Ma 03/26/2018 9:45 AM Signed AMB ROOMING INTAKE FLOWSHEET DATA Risk Screening Do you have concerns about personal safety or safety in the home?: No Cory Mejia DO 03/26/2018 9:45 AM Signed FRACTURE FOLLOW-UP Mr. Peacock presents today for his follow-up visit from: Left patella fracture He is 12 weeks post-injury and was last seen 4 weeks ago. History: his pain intensity is 0/10. He reports compliance with T-ROM brace locked at 90' flexion He reports no change in past medical AND surgical history, medications, allergies, social history, family history and review of systems since last visit, with the exception of the following: None Radiographs: Radiographs today revealed vertical patella fracture with appropriated alignement without displacement. Otherwise, osseous and soft tissue structures within normal limits. Physical Examination: mild tenderness about the patella with direct palpation, mild prepatellar effusion Positive EHL, FHL, AT, GS, Quads, and HS Positive distal pulses Negative Emma's, calf tenderness or palpable cords PROCEDURE: Not applicable Impression: Closed fracture left patella with routine healing Plan: DiscontinueT-ROM May advance activity to tolerance Follow-up PRN Cory Mejia DO Referring Provider: CORY MEJIA V [[id number]] Allergies As of Date: 03/26/2018 (No Known Allergies) Date Reviewed: 03/26/2018 Reviewed by: Nella Gomes Ma - Fully Assessed Reason for Visit: Established Patient [175] Cmt: 5 week 2 days post visit left patella fx Primary Visit Diagnosis:Closed nondisplaced fracture of left patella with routine healing, unspecified fracture morphology, subsequent encounter [S82.002D] Order(s):XR KNEE SPECIFY 1V LT [[id number]] Order #: [id number] FUTURE Prescriptions as of 03/26/2018 Sig: MAGNESIUM OXIDE 400 MG TABLET Take 400 mg by mouth twice da* More... Problem List As Of Date 03/26/2018 Noted Resolved Ceruminosis [H61.20] INVALID FOR*09/02/2016 Priority: A More... 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] INVALID FOR* Dehydration [E86.0] INVALID FOR* CKD (chronic kidney disease) stage 2, GFR 60-89*INVALID FOR* Encounter Status:Closed by CORY MEJIA DO, V on 03/26/18 XR KNEE 4V AP/LAT/OBLS Observed: 03/26/2018 Status: F Source: [facility] 8:55 AM [facility] REPOSITORY * * *Final Report* * * DATE OF EXAM: Mar 26 2018 8:55AM [facility] [id number] - XR KNEE 4V AP/LAT/OBLS LT / PROCEDURE REASON: Unspecified fracture of left patella, subsequent encounter for closed fracture w * * * * Physician Interpretation * * * * LEFT knee HISTORY: 62 years old Clinical information: Unspecified fracture of left patella, subsequent encounter for closed fracture with routine healing recheck of left patella fx recheck of left patella fx TECHNIQUE: Images: XR KNEE 4V AP/LAT/OBLS LT Comparison: 02/17/2018. RESULT: Findings: Mild narrowing of the medial lateral compartments of the knees. Right side: No fractures or dislocations are seen. Left side: There is a curvilinear lucency through the lateral aspect of the patella. IMPRESSION: Fracture through the lateral aspect of patella. Similar to the previous study Switchbox Assembler: PSCB Transcribe Date/Time: Mar 26 2018 1:42P Dictated by : EVE PINA DO This examination was interpreted and the report reviewed and electronically signed by: EVE PINA DO on Mar 26 2018 1:44PM EST [id number] PROGRESS Observed: 03/26/2018 Status: COMPLETED Source: [place] 8:41 AM [facility] REPOSITORY HNO ID: [id number] Author: Annita Ocampo Service: (none) Author Type: (none) Type: Progress Notes Filed: 03/26/2018 8:57 AM Note Text: Doctor ordered obliques. I put the wrong order by mistake. Radiology Service Progress Note PATIENT NAME: Simon Peacock DATE OF SERVICE: March 26, 2018 TIME: 8:41 AM PATIENT IDENTITY VERIFICATION COMPLETED USING TWO (2) METHODS: Patient confirmed name verbally and Date of . PATIENT GENDER DATA: Male PATIENT RELEVANT IMPLANT DATA REVIEWED: Not Applicable RADIOLOGY DEPARTMENT: General X-ray: Exam(s) Completed: Lower Extremity X-Ray(s): Knee, AP / Lat / Tunne / Merchant Left and Wt. Bearing: obliques not tunnel and merchants. jk PERIPHERAL IV DATA: Not applicable SIGNED BY: Annita Ocampo March 26, 2018 8:41 AM IGOR ABS GR + CBC Collected: 03/19/2018 Status: F Source: [place] 11:52 AM [facility] REPOSITORY TYPE CODE TESTS RESULT OUT OF REFERENCE UNITS RANGE LAB WWBC 3.70-11.00 k/uL [facility] WBC 4.71 LAB WRBC 4.20-6.00 m/uL Low [place] RBC 4.18 LAB WHGB 13.0-17.0 g/dL [facility] Hemoglobin 14.0 LAB WHCT 39.0-51.0 % [place] Hematocrit 42.1 LAB WMCV 80.0-100.0 fL [facility] High MCV 100.7 LAB WMCH 26.0-34.0 pg [facility] MCH 33.5 LAB WMCHC 30.5-36.0 g/dL [place] MCHC 33.3 LAB WRDW 11.5-15.0 % [place] RDW 11.7 LAB WPLT 150-400 k/uL [place] Platelet Cnt 197 LAB WMPV 9.0-12.7 fL [place] MPV 9.9 Result Comment: Test performed at: [facility], [address] [place] [address]. LAB ABGRAN 1.45-7.50 k/uL Absol Gran 2.78 Count BMP PLUS FHC Collected: 03/19/2018 Status: F Source: [place] 11:52 AM [facility] REPOSITORY TYPE CODE TESTS RESULT OUT OF REFERENCE UNITS RANGE LAB NA 128-145 mmol/L Sodium 140 LAB K 3.6-5.1 mmol/L Potassium 4.4 LAB CL 98-108 mmol/L Chloride 108 LAB CO2 18-33 mmol/L CO2 26 LAB CRET 0.6-1.2 mg/dL High Creatinine 1.50 LAB BUN 7-22 mg/dL BUN High 23 LAB GLU 73-118 mg/dL Glucose 97 LAB CA 8.0-10.3 mg/dL Calcium, Total 9.0 LAB MG 1.6-2.3 mg/dL Magnesium 2.0 LAB AGAP 9-18 mmol/L Low Anion Gap 6 LAB GFRAA eGFR- 57 Amer. LAB GFRNAA . eGFR-All Other Races 47 Result Comment: eGFR (Estimated GFR) Units of measure: mL/min/1.73 meters squared eGFR is derived from the reexpressed MDRD Study equation using the following parameters: serum creatinine, age, gender and race. The creatinine assay has been calibrated to be traceable to IDMS. An eGFR <60 mL/min/1.73m2 for >3 months is consistent with chronic kidney disease. Refer to KDOQI guidelines for clinical interpretation. In patients with unstable renal function, e.g. those with acute kidney injury, the eGFR may not accurately reflect actual GFR. HEPATIC FUNCTN PANEL Collected: 03/19/2018 Status: F Source: [place] 11:52 AM [facility] REPOSITORY TYPE CODE TESTS RESULT OUT OF REFERENCE UNITS RANGE LAB ALB 3.9-4.9 g/dL Albumin 4.1 LAB TBIL 0.2-1.3 mg/dL Bilirubin, Total 0.6 LAB CBIL <0.2 mg/dL Bilirubin,Conjuga <0.2 efra LAB ALKP 36-108 U/L Alkaline Phosphatase 63 LAB AST 14-40 U/L AST 31 LAB ALT 10-54 U/L ALT 22 LAB TP 6.3-8.0 g/dL Low Protein, Total 6.2 Performed By: #### HFP, TSH, CEA #### [facility] [address] [address] TSH Collected: 03/19/2018 Status: F Source: [place] 11:52 AM [facility] REPOSITORY TYPE CODE TESTS RESULT OUT OF RANGE REFERENCE UNITS LAB TSH 0.400-5.500 uU/mL TSH 3.450 Performed By: #### HFP, TSH, CEA #### [facility] [address] [address] CEA Collected: 03/19/2018 Status: F Source: [place] 11:52 AM [facility] REPOSITORY TYPE CODE TESTS RESULT OUT OF RANGE REFERENCE UNITS LAB CEA 0.0-2.9 ng/mL High CEA 3.5 Result Comment: Test analyzed by the [employer] DxI method. Performed By: #### HFP, TSH, CEA #### [facility] [address] [address] PROGRESS Observed: 03/19/2018 Status: COMPLETED Source: [place] 11:46 AM [facility] REPOSITORY HNO ID: [id number] Author: Yohan Ordoñez Service: (none) Author Type: Physician Type: Progress Notes Filed: 03/19/2018 1:26 PM Note Text: Diagnosis: 1) Metastatic adenocarcinoma of the colon. 2) Atrial fibrillation secondary to hypomagnesemia. HPI: The patient is a 62 yo male who had a past medical history significant for mild chronic kidney disease. The patient underwent a right sided hemicolectomy on 02/01/2016 after presenting with symptoms concerning for possible bowel obstruction. The pathology demonstrated invasive moderately differentiated adenocarcinoma extending through the bowel wall of the cecum with perforation. Lymphovascular invasion was also observed focally. One of 31 examined lymph nodes was positive for disease. Resection margins were negative. Final pathologic stage was pT4a pN1a stage IIIB. The patient then received adjuvant chemotherapy consisting of FOLFOX which was started on 03/04/2016. Following 6 cycles of therapy, the patient was hospitalized for signs and symptoms of bowel obstruction. During that hospitalization he underwent exploratory laparotomy and was found to have metastatic deposits of disease throughout the mesentery. The pathology report from 05/23/2016 demonstrated within the pathologic specimens there was an area of fat necrosis showing moderately differentiated adenocarcinoma. A right psoas nodule excision demonstrating moderately differentiated adenocarcinoma. Omentum resected in its entirety was negative for malignancy. Right kidney and right ureter, status post nephroureterectomy showed an unremarkable kidney with marked periureteral fibrosis and foci of hemorrhage negative for malignancy. A small bowel nodule was excised and it demonstrated moderately differentiated adenocarcinoma and a resected section of sigmoid colon showing a portion of colon with a minute focus of atypical cells in the serosal surface suspect for carcinoma. He was in the hospital for 19 days. He was discharged and had a follow-up appointment with Dr. Elias on 06/09. FOLFIRI was discussed and recommended. Transferred care here at that time to be closer to home. Previous therapy: 1) FOLFOX x6 cycles. 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 2) FOLFIRI with panitumumab. PD 03/2017. Current therapy: 1) Pembrolizumab. Presents for ongoing oncologic management. Interim history: He has no complaints today. He has no symptomatic side effects whatsoever from his treatment. His appetite is normal. He has no odynophagia or dysphagia. No nausea or vomiting. No reflux. No abdominal pain, bloating or distention. Bowels are working normally. No episodes of diarrhea. No bouts of constipation. No signs of GI bleeding. PMH, medications and allergies as below personally reviewed by me today. Any changes documented in appropriate section. ROS: Constitutional: No fever, chills or night sweats. Neuro: Denies BECERRIL, vertigo, dizziness and imbalance. HEENT: No recent change in voice, vision or hearing. Resp: Denies cough, wheeze and hemoptysis. Denies shortness of breath at rest. Denies HOANG. CVS: Denies exertional chest pain, PND, orthopnea and LE edema. GI: Denies dysgeusia. Denies symptoms of stomatitis. : Denies dysuria or gross hematuria. No symptoms of bladder outlet obstruction. Endo: Denies hot flashes. Denies polyuria and polydipsia. Denies heat and cold intolerance. Musculoskeletal: See above. Derm: No rash or pruritis. Heme: Denies unusual bleeding and unexplained bruising. Psych: Normal mood. PHYSICAL EXAM: Vitals: Blood pressure 123/69, pulse (!) 58, temperature 37.3 ?C (99.2 ?F), temperature source Tympanic, weight 82.1 kg (181 lb). Well-appearing and in no acute distress. EYES: Sclerae are anicteric bilaterally. NECK: Supple. No enlargement of thyroid. LYMPHATIC: There is no palpable cervical, supraclavicular, axillary adenopathy. RESPIRATORY: Inspiratory breath sounds are of normal intensity in all [place]. No rales, wheezes or rhonchi. Expiratory phase is normal. CARDIOVASCULAR: Rhythm is regular. Normal intensity S1/S2. There is no gallop or murmur. ABD: The abdomen is nondistended. There is no organomegaly or mass appreciated. No tenderness. Extremities: No swelling or edema. SKIN: The generalized hyperpigmentation is stable. No jaundice. 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 No focal motor weakness. MUSCULOSKELETAL: No muscle wasting.. ASSESSMENT/PLAN: (C18.0) Primary cancer of cecum (HCC) (primary encounter diagnosis) (C18.9, C77.2) Colon cancer metastasized to intra-abdominal lymph node (HCC) Assessment: -KPS is 90%. -Biopsy proven metastases to psoas and mesentery. -dMMR. -He is tolerating pembrolizumab for a well with no symptomatic side effect. -Most recent colonoscopy 11/27/2017--no polyps. -Most recent radiographic evaluation in November revealed complete response. Plan: -Continue pembrolizumab. -CT scans in March. Yohan Ordoñez DO CNOVSP Observed: 03/19/2018 Status: COMPLETED Source: [place] 11:40 AM [facility] REPOSITORY Visit (SP) Office ([place]) AYUSHSIMON ([id number]) 1955 M Date Time Provider Department 03/19/18 11:40 AM YOHAN ORDOÑEZ During your visit today, we recorded the following information about you: Temperature Pulse Blood pressure Weight 99.2 degrees 58/minute 123/69 82.1 kg Mikayla Ag Romel 03/19/2018 11:48 AM Signed Established Patient, Lab's Mikayla Ordoñez, DO 03/19/2018 1:26 PM Signed Diagnosis: 1) Metastatic adenocarcinoma of the colon. 2) Atrial fibrillation secondary to hypomagnesemia. HPI: The patient is a 62 yo male who had a past medical history significant for mild chronic kidney disease. The patient underwent a right sided hemicolectomy on 02/01/2016 after presenting with symptoms concerning for possible bowel obstruction. The pathology demonstrated invasive moderately differentiated adenocarcinoma extending through the bowel wall of the cecum with perforation. Lymphovascular invasion was also observed focally. One of 31 examined lymph nodes was positive for disease. Resection margins were negative. Final pathologic stage was pT4a pN1a stage IIIB. The patient then received adjuvant chemotherapy consisting of FOLFOX which was started on 03/04/2016. Following 6 cycles of therapy, the patient was hospitalized for signs and symptoms of bowel obstruction. During that hospitalization he underwent exploratory laparotomy and was found to have metastatic deposits of disease throughout the mesentery. The pathology report from 05/23/2016 demonstrated within the pathologic specimens there was an area of fat necrosis showing moderately differentiated adenocarcinoma. A right psoas nodule excision demonstrating moderately differentiated adenocarcinoma. Omentum resected in its entirety was negative for malignancy. Right kidney and right ureter, status post nephroureterectomy showed an unremarkable kidney with marked periureteral fibrosis and foci of hemorrhage negative for malignancy. A small bowel nodule was excised and it demonstrated moderately differentiated adenocarcinoma and a resected section of sigmoid colon showing a portion of colon with a minute focus of atypical cells in the serosal surface suspect for carcinoma. He was in the hospital for 19 days. He was discharged and had a follow-up appointment with Dr. Elias on 06/09. FOLFIRI was discussed and recommended. Transferred care here at that time to be closer to home. Previous therapy: 1) FOLFOX x6 cycles. 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 2) FOLFIRI with panitumumab. PD 03/2017. Current therapy: 1) Pembrolizumab. Presents for ongoing oncologic management. Interim history: He has no complaints today. He has no symptomatic side effects whatsoever from his treatment. His appetite is normal. He has no odynophagia or dysphagia. No nausea or vomiting. No reflux. No abdominal pain, bloating or distention. Bowels are working normally. No episodes of diarrhea. No bouts of constipation. No signs of GI bleeding. PMH, medications and allergies as below personally reviewed by me today. Any changes documented in appropriate section. ROS: Constitutional: No fever, chills or night sweats. Neuro: Denies BECERRIL, vertigo, dizziness and imbalance. HEENT: No recent change in voice, vision or hearing. Resp: Denies cough, wheeze and hemoptysis. Denies shortness of breath at rest. Denies HOANG. CVS: Denies exertional chest pain, PND, orthopnea and LE edema. GI: Denies dysgeusia. Denies symptoms of stomatitis. : Denies dysuria or gross hematuria. No symptoms of bladder outlet obstruction. Endo: Denies hot flashes. Denies polyuria and polydipsia. Denies heat and cold intolerance. Musculoskeletal: See above. Derm: No rash or pruritis. Heme: Denies unusual bleeding and unexplained bruising. Psych: Normal mood. PHYSICAL EXAM: Vitals: Blood pressure 123/69, pulse (!) 58, temperature 37.3 ?C (99.2 ?F), temperature source Tympanic, weight 82.1 kg (181 lb). Well-appearing and in no acute distress. EYES: Sclerae are anicteric bilaterally. NECK: Supple. No enlargement of thyroid. LYMPHATIC: There is no palpable cervical, supraclavicular, axillary adenopathy. RESPIRATORY: Inspiratory breath sounds are of normal intensity in all [place]. No rales, wheezes or rhonchi. Expiratory phase is normal. CARDIOVASCULAR: Rhythm is regular. Normal intensity S1/S2. There is no gallop or murmur. ABD: The abdomen is nondistended. There is no organomegaly or mass appreciated. No tenderness. Extremities: No swelling or edema. SKIN: The generalized hyperpigmentation is stable. No jaundice. 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 No focal motor weakness. MUSCULOSKELETAL: No muscle wasting.. ASSESSMENT/PLAN: (C18.0) Primary cancer of cecum (HCC) (primary encounter diagnosis) (C18.9, C77.2) Colon cancer metastasized to intra-abdominal lymph node (HCC) Assessment: -KPS is 90%. -Biopsy proven metastases to psoas and mesentery. -dMMR. -He is tolerating pembrolizumab for a well with no symptomatic side effect. -Most recent colonoscopy 11/27/2017--no polyps. -Most recent radiographic evaluation in November revealed complete response. Plan: -Continue pembrolizumab. -CT scans in March. Yohan Ordoñez DO Referring Provider: YOHAN ORDOÑEZ [[id number]] Allergies As of Date: 03/19/2018 (No Known Allergies) Date Reviewed: 03/19/2018 Reviewed by: Mikayla Ag Ma - Fully Assessed Reason for Visit: Established Patient [175] Primary Visit Diagnosis: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] Other Visit Diagnoses:Dehydration [E86.0] CKD (chronic kidney disease) stage 2, GFR 60-89 ml/min [N18.2] Follow-up and Disposition History Recorded Prescriptions as of 03/19/2018 Sig: MAGNESIUM OXIDE 400 MG TABLET Take 400 mg by mouth twice da* More... Problem List As Of Date 03/19/2018 Noted Resolved Ceruminosis [H61.20] INVALID FOR*09/02/2016 Priority: A More... 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 REPOSITORY TYPE CODE TESTS RESULT OUT OF REFERENCE UNITS RANGE LAB NAWB 135-146 mmol/L Sodium, Whole 140 Bld LAB K1WB 3.5-5.0 mmol/L Potassium,Who 4.4 le Bld LAB CLWB 98-110 mmol/L Chloride, 104 Whole Bld LAB ICAWB 1.08-1.30 mmol/L Ionized 1.23 Calcium, WB Result Comment: Please note: This value represents ionized calcium not total calcium. LAB CO2WB 23-32 mmol/L TCO2, Whole 24 Blood LAB GLUWB 65-100 mg/dL Glucose, 100 Whole Bld LAB BUNWB 10-25 mg/dL BUN, Whole 24 Blood LAB BCRET 0.70-1.40 mg/dL Creatinine,Wh 1.40 ole Bld LAB AGAPWB 0-15 mmol/L Anion Gap, 12 Whole Bld LAB GFRAA eGFR- >60 Amer. LAB GFRNAA . eGFR-All 51 Other Races Result Comment: eGFR (Estimated GFR) Units of measure: mL/min/1.73 meters squared eGFR is derived from the reexpressed MDRD Study equation using the following parameters: serum creatinine, age, gender and race. The creatinine assay has been calibrated to be traceable to IDMS. An eGFR <60 mL/min/1.73m2 for >3 months is consistent with chronic kidney disease. Refer to KDOQI guidelines for clinical interpretation. In patients with unstable renal function, e.g. those with acute kidney injury, the eGFR may not accurately reflect actual GFR. IGOR ABS GR + CBC Collected: 03/01/2018 Status: F Source: [place] 8:39 AM [facility] REPOSITORY TYPE CODE TESTS RESULT OUT OF REFERENCE UNITS RANGE LAB WWBC 3.70-11.00 k/uL [facility] WBC 4.50 LAB WRBC 4.20-6.00 m/uL Low [place] RBC 4.05 LAB WHGB 13.0-17.0 g/dL [place] Hemoglobin 13.8 LAB WHCT 39.0-51.0 % [place] Hematocrit 40.0 LAB WMCV 80.0-100.0 fL [place] MCV 98.8 LAB WMCH 26.0-34.0 pg [facility] High MCH 34.1 LAB WMCHC 30.5-36.0 g/dL [place] MCHC 34.5 LAB WRDW 11.5-15.0 % [facility] RDW 11.7 LAB WPLT 150-400 k/uL [facility] Platelet Cnt 173 LAB WMPV 9.0-12.7 fL [place] MPV 10.6 Result Comment: Test performed at: [facility], [address] [place] [address] Rd[address] [place] [address]. LAB ABGRAN 1.45-7.50 k/uL Absol Gran 2.85 Count HEPATIC FUNCTN PANEL Collected: 03/01/2018 Status: F Source: [place] 8:39 AM [facility] REPOSITORY TYPE CODE TESTS RESULT OUT OF REFERENCE UNITS RANGE LAB ALB 3.9-4.9 g/dL Albumin 4.1 LAB TBIL 0.2-1.3 mg/dL Bilirubin, Total 0.7 LAB CBIL <0.2 mg/dL High Bilirubin,Conjuga 0.2 efra LAB ALKP 36-108 U/L Alkaline Phosphatase 57 LAB AST 14-40 U/L AST 28 LAB ALT 10-54 U/L ALT 20 LAB TP 6.3-8.0 g/dL Protein, Total 6.3 Performed By: #### HFP, TSH, CEA #### [facility] [address] [place], [place] [address] TSH Collected: 03/01/2018 Status: F Source: [place] 8:39 AM [facility] REPOSITORY TYPE CODE TESTS RESULT OUT OF RANGE REFERENCE UNITS LAB TSH 0.400-5.500 uU/mL TSH 3.940 Performed By: #### HFP, TSH, CEA #### [facility] [address] [place], [place] [address] CEA Collected: 03/01/2018 Status: F Source: [place] 8:39 AM [facility] REPOSITORY TYPE CODE TESTS RESULT OUT OF RANGE REFERENCE UNITS LAB CEA 0.0-2.9 ng/mL CEA 2.7 Result Comment: Test analyzed by the [employer] DxI method. Performed By: #### HFP, TSH, CEA #### [facility] [address] [place], [place] [address] PROGRESS Observed: 03/01/2018 Status: COMPLETED Source: [place] 8:37 AM [facility] REPOSITORY HNO ID: [id number] Author: Yohan Ordoñez Service: (none) Author Type: Physician Type: Progress Notes Filed: 03/01/2018 8:50 AM Note Text: Diagnosis: 1) Metastatic adenocarcinoma of the colon. 2) Atrial fibrillation secondary to hypomagnesemia. HPI: The patient is a 62 yo male who had a past medical history significant for mild chronic kidney disease. The patient underwent a right sided hemicolectomy on 02/01/2016 after presenting with symptoms concerning for possible bowel obstruction. The pathology demonstrated invasive moderately differentiated adenocarcinoma extending through the bowel wall of the cecum with perforation. Lymphovascular invasion was also observed focally. One of 31 examined lymph nodes was positive for disease. Resection margins were negative. Final pathologic stage was pT4a pN1a stage IIIB. The patient then received adjuvant chemotherapy consisting of FOLFOX which was started on 03/04/2016. Following 6 cycles of therapy, the patient was hospitalized for signs and symptoms of bowel obstruction. During that hospitalization he underwent exploratory laparotomy and was found to have metastatic deposits of disease throughout the mesentery. The pathology report from 05/23/2016 demonstrated within the pathologic specimens there was an area of fat necrosis showing moderately differentiated adenocarcinoma. A right psoas nodule excision demonstrating moderately differentiated adenocarcinoma. Omentum resected in its entirety was negative for malignancy. Right kidney and right ureter, status post nephroureterectomy showed an unremarkable kidney with marked periureteral fibrosis and foci of hemorrhage negative for malignancy. A small bowel nodule was excised and it demonstrated moderately differentiated adenocarcinoma and a resected section of sigmoid colon showing a portion of colon with a minute focus of atypical cells in the serosal surface suspect for carcinoma. He was in the hospital for 19 days. He was discharged and had a follow-up appointment with Dr. Elias on 06/09. FOLFIRI was discussed and recommended. Transferred care here at that time to be closer to home. Previous therapy: 1) FOLFOX x6 cycles. 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 2) FOLFIRI with panitumumab. PD 03/2017. Current therapy: 1) Pembrolizumab. Presents for ongoing oncologic management. Interim history: Doing well. No pain now from left patellar fracture. Good energy with no fatigue. Good appetite. No n/v or diarrhea. Bowels moving regularly with no sign GI bleeding. No rash. PMH, medications and allergies as below personally reviewed by me today. Any changes documented in appropriate section. ROS: Constitutional: Denies episodes of night sweats. Neuro: Denies BECERRIL, vertigo, dizziness and imbalance. HEENT: No recent change in voice, vision or hearing. Resp: Denies cough, wheeze and hemoptysis. Denies shortness of breath at rest. Denies HOANG. CVS: Denies exertional chest pain, PND, orthopnea and LE edema. GI: Denies dysgeusia. Denies symptoms of stomatitis. Denies dysphagia and odynophagia. : Denies dysuria or gross hematuria. No symptoms of bladder outlet obstruction. Endo: Denies hot flashes. Denies polyuria and polydipsia. Denies heat and cold intolerance. Musculoskeletal: See above. Derm: See above. Heme: Denies unusual bleeding and unexplained bruising. Psych: Normal mood. PHYSICAL EXAM: Vitals: Blood pressure 104/53, pulse 62, temperature 37.2 ?C (99 ?F), temperature source Oral, weight 84.4 kg (186 lb). Well-appearing and in no acute distress. EYES: Sclerae are anicteric bilaterally. NECK: Supple. No enlargement of thyroid. LYMPHATIC: There is no palpable cervical, supraclavicular, axillary adenopathy. RESPIRATORY: Inspiratory breath sounds are of normal intensity in all [place]. No rales, wheezes or rhonchi. Expiratory phase is normal. CARDIOVASCULAR: Rhythm is regular. Normal intensity S1/S2. There is no gallop or murmur. ABD: The abdomen is nondistended. There is no organomegaly or mass appreciated. No tenderness. Extremities: No swelling or edema. SKIN: The generalized hyperpigmentation is stable. No jaundice. 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 No focal motor weakness. MUSCULOSKELETAL: No muscle wasting.. ASSESSMENT/PLAN: (C18.0) Primary cancer of cecum (HCC) (primary encounter diagnosis) (C18.9, C77.2) Colon cancer metastasized to intra-abdominal lymph node (HCC) Assessment: -KPS is 90%. -Biopsy proven metastases to psoas and mesentery. -dMMR. -He is tolerating pembrolizumab for a well with no symptomatic side effect. -Most recent colonoscopy 11/27/2017--no polyps. -Most recent radiographic evaluation in November revealed complete response. Plan: -Continue pembrolizumab. -CT scans in March. Yohan Ordoñez DO CNOVSP Observed: 03/01/2018 Status: COMPLETED Source: [place] 8:30 AM [facility] REPOSITORY Visit (SP) Office ([place]) SIMON PEACOCK ([id number]) 1955 M Date Time Provider Department 03/01/18 8:30 AM YOHAN ORDOÑEZ During your visit today, we recorded the following information about you: Temperature Pulse Blood pressure Weight 99 degrees 62/minute 104/53 84.4 kg Yohan Ordoñez DO 03/01/2018 8:50 AM Signed Diagnosis: 1) Metastatic adenocarcinoma of the colon. 2) Atrial fibrillation secondary to hypomagnesemia. HPI: The patient is a 62 yo male who had a past medical history significant for mild chronic kidney disease. The patient underwent a right sided hemicolectomy on 02/01/2016 after presenting with symptoms concerning for possible bowel obstruction. The pathology demonstrated invasive moderately differentiated adenocarcinoma extending through the bowel wall of the cecum with perforation. Lymphovascular invasion was also observed focally. One of 31 examined lymph nodes was positive for disease. Resection margins were negative. Final pathologic stage was pT4a pN1a stage IIIB. The patient then received adjuvant chemotherapy consisting of FOLFOX which was started on 03/04/2016. Following 6 cycles of therapy, the patient was hospitalized for signs and symptoms of bowel obstruction. During that hospitalization he underwent exploratory laparotomy and was found to have metastatic deposits of disease throughout the mesentery. The pathology report from 05/23/2016 demonstrated within the pathologic specimens there was an area of fat necrosis showing moderately differentiated adenocarcinoma. A right psoas nodule excision demonstrating moderately differentiated adenocarcinoma. Omentum resected in its entirety was negative for malignancy. Right kidney and right ureter, status post nephroureterectomy showed an unremarkable kidney with marked periureteral fibrosis and foci of hemorrhage negative for malignancy. A small bowel nodule was excised and it demonstrated moderately differentiated adenocarcinoma and a resected section of sigmoid colon showing a portion of colon with a minute focus of atypical cells in the serosal surface suspect for carcinoma. He was in the hospital for 19 days. He was discharged and had a follow-up appointment with Dr. Elias on 06/09. FOLFIRI was discussed and recommended. Transferred care here at that time to be closer to home. Previous therapy: 1) FOLFOX x6 cycles. 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 2) FOLFIRI with panitumumab. PD 03/2017. Current therapy: 1) Pembrolizumab. Presents for ongoing oncologic management. Interim history: Doing well. No pain now from left patellar fracture. Good energy with no fatigue. Good appetite. No n/v or diarrhea. Bowels moving regularly with no sign GI bleeding. No rash. PMH, medications and allergies as below personally reviewed by me today. Any changes documented in appropriate section. ROS: Constitutional: Denies episodes of night sweats. Neuro: Denies BECERRIL, vertigo, dizziness and imbalance. HEENT: No recent change in voice, vision or hearing. Resp: Denies cough, wheeze and hemoptysis. Denies shortness of breath at rest. Denies HOANG. CVS: Denies exertional chest pain, PND, orthopnea and LE edema. GI: Denies dysgeusia. Denies symptoms of stomatitis. Denies dysphagia and odynophagia. : Denies dysuria or gross hematuria. No symptoms of bladder outlet obstruction. Endo: Denies hot flashes. Denies polyuria and polydipsia. Denies heat and cold intolerance. Musculoskeletal: See above. Derm: See above. Heme: Denies unusual bleeding and unexplained bruising. Psych: Normal mood. PHYSICAL EXAM: Vitals: Blood pressure 104/53, pulse 62, temperature 37.2 ?C (99 ?F), temperature source Oral, weight 84.4 kg (186 lb). Well-appearing and in no acute distress. EYES: Sclerae are anicteric bilaterally. NECK: Supple. No enlargement of thyroid. LYMPHATIC: There is no palpable cervical, supraclavicular, axillary adenopathy. RESPIRATORY: Inspiratory breath sounds are of normal intensity in all [place]. No rales, wheezes or rhonchi. Expiratory phase is normal. CARDIOVASCULAR: Rhythm is regular. Normal intensity S1/S2. There is no gallop or murmur. ABD: The abdomen is nondistended. There is no organomegaly or mass appreciated. No tenderness. Extremities: No swelling or edema. SKIN: The generalized hyperpigmentation is stable. No jaundice. 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 No focal motor weakness. MUSCULOSKELETAL: No muscle wasting.. ASSESSMENT/PLAN: (C18.0) Primary cancer of cecum (HCC) (primary encounter diagnosis) (C18.9, C77.2) Colon cancer metastasized to intra-abdominal lymph node (HCC) Assessment: -KPS is 90%. -Biopsy proven metastases to psoas and mesentery. -dMMR. -He is tolerating pembrolizumab for a well with no symptomatic side effect. -Most recent colonoscopy 11/27/2017--no polyps. -Most recent radiographic evaluation in November revealed complete response. Plan: -Continue pembrolizumab. -CT scans in March. 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 Discontinue saline lock post exam. If Pt. has a central line or IVAD, may access for administration according to line specific nursing protocol. Once exam is complete flush line and de-access according to line specific nursing protocol in the CT contrast administration guidelines link.Disp: 1 EachRfl: 0 enteric contrast (will be provided with radiology test)For CT CHESTABD/PEL W IVCON Routine order Administer, As Directed One Time Only, via Oral, Rectal, both Oral and Rectal, Enteric Tube, Stoma or Indwelling Catheter, Enteric Contrast as designated per enteric contrast guidelinesDisp: 1 EachRfl: 0 Follow-up and Disposition History Recorded Prescriptions as of 03/01/2018 Sig: MAGNESIUM OXIDE 400 MG TABLET Take 400 mg by mouth twice da* IV CONTRAST (RADIOLOGY PROCED* CT Chest ABD/PEL-Inject, intr* ENTERIC CONTRAST (RADIOLOGY P* For CT CHESTABD/PEL W IVCON R* More... Problem List As Of Date 03/01/2018 Noted Resolved Ceruminosis [H61.20] INVALID FOR*09/02/2016 Priority: A More... 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 Peacock presents today for his follow-up visit from: Left patella fracture He is 8 weeks post-injury and was last seen two weeks ago. History: his pain intensity is 1/10. He reports compliance with T-ROM brace locked at 90' flexion He reports no change in past medical AND surgical history, medications, allergies, social history, family history and review of systems since last visit, with the exception of the following: None Radiographs: Radiographs today revealed vertical patella fracture with appropriated alignement without displacement. Otherwise, osseous and soft tissue structures within normal limits. Physical Examination: mild tenderness about the patella with direct palpation, mild prepatellar effusion Positive EHL, FHL, AT, GS, Quads, and HS Positive distal pulses Negative Emma's, calf tenderness or palpable cords PROCEDURE: Not applicable Impression: Closed fracture left patella with routine healing Plan: Continue withT-ROM brace opened to 90' flexion for activity May advance activity to tolerance, but avoid kneeling Follow-up in 5-6 weeks Cory Mejia DO PROGRESS Observed: 02/17/2018 Status: COMPLETED Source: [place] 10:05 AM [facility] REPOSITORY HNO ID: [id number] Author: Nella Gomes Ma Service: (none) Author Type: (none) Type: Progress Notes Filed: 02/17/2018 10:21 AM Note Text: AMB ROOMING INTAKE FLOWSHEET DATA Risk Screening Do you have concerns about personal safety or safety in the home?: No Pain Pain Score: 1/10 Pain Location: Knee-Left Description: Other: See comment (twinge) Duration Amount of Time: (ongoing) Frequency: Intermittent Intervention: Other: See comment (TROM brace) PROGRESS Observed: 02/17/2018 Status: COMPLETED Source: [place] 10:00 AM [facility] REPOSITORY HNO ID: [id number] Author: Megha Ash (Rt) Service: (none) Author Type: Food Preparation Supervisor Type: Progress Notes Filed: 02/17/2018 10:00 AM Note Text: Radiology Service Progress Note PATIENT NAME: Simon Peacock DATE OF SERVICE: February 17, 2018 TIME: 9:58 AM PATIENT IDENTITY VERIFICATION COMPLETED USING TWO (2) METHODS: Patient confirmed name verbally and Date of . PATIENT GENDER DATA: Male PATIENT RELEVANT IMPLANT DATA REVIEWED: Not Applicable RADIOLOGY DEPARTMENT: General X-ray: Exam(s) Completed: Lower Extremity X-Ray(s): Knee, AP / Lat / Tunne / Merchant Left and Wt. Bearing: PERIPHERAL IV DATA: Not applicable SIGNED BY: RT Nilsa February 17, 2018 9:58 AM CARLY Observed: 02/17/2018 Status: COMPLETED Source: [place] 10:00 AM [facility] REPOSITORY Office Visit ([facility]) SIMON PEACOCK ([id number]) 1955 M Date Time Provider Department 02/17/18 10:00 AM CORY MEJIA During your visit today, we recorded the following information about you: Nella Gomes Ma 02/17/2018 10:21 AM Signed AMB ROOMING INTAKE FLOWSHEET DATA Risk Screening Do you have concerns about personal safety or safety in the home?: No Pain Pain Score: 1/10 Pain Location: Knee-Left Description: Other: See comment (twinge) Duration Amount of Time: (ongoing) Frequency: Intermittent Intervention: Other: See comment (TROM brace) Cory Mejia DO 02/17/2018 10:21 AM Signed FRACTURE FOLLOW-UP Mr. Peacock presents today for his follow-up visit from: Left patella fracture He is 8 weeks post-injury and was last seen two weeks ago. History: his pain intensity is 1/10. He reports compliance with T-ROM brace locked at 90' flexion He reports no change in past medical AND surgical history, medications, allergies, social history, family history and review of systems since last visit, with the exception of the following: None Radiographs: Radiographs today revealed vertical patella fracture with appropriated alignement without displacement. Otherwise, osseous and soft tissue structures within normal limits. Physical Examination: mild tenderness about the patella with direct palpation, mild prepatellar effusion Positive EHL, FHL, AT, GS, Quads, and HS Positive distal pulses Negative Emma's, calf tenderness or palpable cords PROCEDURE: Not applicable Impression: Closed fracture left patella with routine healing Plan: Continue withT-ROM brace opened to 90' flexion for activity May advance activity to tolerance, but avoid kneeling Follow-up in 5-6 weeks Cory Mejia DO Referring Provider: CORY MEJIA V [[id number]] Allergies As of Date: 02/17/2018 (No Known Allergies) Date Reviewed: 02/17/2018 Reviewed by: Nella Gomes Ma - Fully Assessed Reason for Visit: Established Patient [175] Cmt: 7 weeks 6 days post left patella fracture Primary Visit Diagnosis:Closed nondisplaced fracture of left patella with routine healing, unspecified fracture morphology, subsequent encounter [S82.002D] Prescriptions as of 02/17/2018 Sig: IMODIUM A-D ORAL Take 1 tablet by mouth. After* MAGNESIUM OXIDE 400 MG TABLET Take 400 mg by mouth twice da* ZOLPIDEM 10 MG TABLET Take 1 tablet by mouth at bed* PROCHLORPERAZINE MALEATE 10 M* Take 1 tablet by mouth every * More... Problem List As Of Date 02/17/2018 Noted Resolved Ceruminosis [H61.20] INVALID FOR*09/02/2016 Priority: A More... 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 Unspecified fracture of left patella, subsequent encounter for closed fracture with routine healing . 8 week follow up to left patella fracture TECHNIQUE: XR KNEE 4V AP/PA BOTH+LAT/NBA LT Laterality: LEFT Number of different views (projections): 4 COMPARISON: 02/02/2018 RESULT: No change in the appearance of patellar fracture which is a vertical fracture involving the lateral facet. Knee joint and patellofemoral joint are maintained. IMPRESSION: NO CHANGE IN PATELLAR FRACTURE. Switchbox Assembler: PSCB Transcribe Date/Time: Feb 17 2018 4:22P Dictated by : YUNIER PARKS MD This examination was interpreted and the report reviewed and electronically signed by: YUNIER PARKS MD on Feb 17 2018 4:25PM EST [id number] Observed: 02/08/2018 Status: COMPLETED Source: [place] 10:38 AM [facility] REPOSITORY O ID: [id number] Author: Yohan Ordoñez Service: (none) Author Type: Physician Type: Progress Notes Filed: 02/08/2018 10:44 AM Note Text: Diagnosis: 1) Metastatic adenocarcinoma of the colon. 2) Atrial fibrillation secondary to hypomagnesemia. HPI: The patient is a 62 yo male who had a past medical history significant for mild chronic kidney disease. The patient underwent a right sided hemicolectomy on 02/01/2016 after presenting with symptoms concerning for possible bowel obstruction. The pathology demonstrated invasive moderately differentiated adenocarcinoma extending through the bowel wall of the cecum with perforation. Lymphovascular invasion was also observed focally. One of 31 examined lymph nodes was positive for disease. Resection margins were negative. Final pathologic stage was pT4a pN1a stage IIIB. The patient then received adjuvant chemotherapy consisting of FOLFOX which was started on 03/04/2016. Following 6 cycles of therapy, the patient was hospitalized for signs and symptoms of bowel obstruction. During that hospitalization he underwent exploratory laparotomy and was found to have metastatic deposits of disease throughout the mesentery. The pathology report from 05/23/2016 demonstrated within the pathologic specimens there was an area of fat necrosis showing moderately differentiated adenocarcinoma. A right psoas nodule excision demonstrating moderately differentiated adenocarcinoma. Omentum resected in its entirety was negative for malignancy. Right kidney and right ureter, status post nephroureterectomy showed an unremarkable kidney with marked periureteral fibrosis and foci of hemorrhage negative for malignancy. A small bowel nodule was excised and it demonstrated moderately differentiated adenocarcinoma and a resected section of sigmoid colon showing a portion of colon with a minute focus of atypical cells in the serosal surface suspect for carcinoma. He was in the hospital for 19 days. He was discharged and had a follow-up appointment with Dr. Elias on 06/09. FOLFIRI was discussed and recommended. Transferred care here at that time to be closer to home. Previous therapy: 1) FOLFOX x6 cycles. 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 2) FOLFIRI with panitumumab. PD 03/2017. Current therapy: 1) Pembrolizumab. Presents for ongoing oncologic management. Interim history: He continues to tolerate treatment very well with no symptomatic autoimmune side effect. Specifically he's had no reflux, nausea or diarrhea. No constipation. Bowels are working normally and he's had no signs of GI bleeding including melena and hematochezia. No abdominal bloating, pain or distention. No episodes of jaundice or pruritus. His says his energy levels are doing really well. His appetite is normal. He's not had any episodes of fever or chills. No rash. PMH, medications and allergies as below personally reviewed by me today. Any changes documented in appropriate section. ROS: Constitutional: Denies episodes of night sweats. Neuro: Denies BECERRIL, vertigo, dizziness and imbalance. HEENT: No recent change in voice, vision or hearing. Resp: Denies cough, wheeze and hemoptysis. Denies shortness of breath at rest. Denies HOANG. CVS: Denies exertional chest pain, PND, orthopnea and LE edema. GI: Denies dysgeusia. Denies symptoms of stomatitis. Denies dysphagia and odynophagia. : Denies dysuria or gross hematuria. No symptoms of bladder outlet obstruction. Endo: Denies hot flashes. Denies polyuria and polydipsia. Denies heat and cold intolerance. Musculoskeletal: See above. Derm: See above. Heme: Denies unusual bleeding and unexplained bruising. Psych: Normal mood. PHYSICAL EXAM: Vitals: Blood pressure 121/60, pulse (!) 58, temperature 37 ?C (98.6 ?F), temperature source Temporal Artery, weight 83.9 kg (185 lb). Well-appearing and in no acute distress. EYES: Sclerae are anicteric bilaterally. NECK: Supple. No enlargement of thyroid. LYMPHATIC: There is no palpable cervical, supraclavicular, axillary adenopathy. RESPIRATORY: Inspiratory breath sounds are of normal intensity in all [place]. No rales, wheezes or rhonchi. Expiratory phase is normal. CARDIOVASCULAR: Rhythm is regular. Normal intensity S1/S2. There is no gallop or murmur. ABD: The abdomen is nondistended. There is no organomegaly or mass appreciated. No tenderness. Extremities: No swelling or edema. SKIN: The generalized hyperpigmentation is stable. No jaundice. 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 No focal motor weakness. MUSCULOSKELETAL: No muscle wasting.. ASSESSMENT/PLAN: (C18.0) Primary cancer of cecum (HCC) (primary encounter diagnosis) (C18.9, C77.2) Colon cancer metastasized to intra-abdominal lymph node (HCC) Assessment: -KPS is 90%. -Biopsy proven metastases to psoas and mesentery. -dMMR. -He is tolerating pembrolizumab for a well with no symptomatic side effect. -Most recent colonoscopy 11/27/2017--no polyps. -Most recent radiographic evaluation in November revealed complete response. Plan: -Continue pembrolizumab. -CT scans in March. Yohan Ordoñez DO HEPATIC FUNCTN PANEL Collected: 02/08/2018 Status: F Source: [place] 10:37 AM [facility] REPOSITORY TYPE CODE TESTS RESULT OUT OF REFERENCE UNITS RANGE LAB ALB 3.9-4.9 g/dL Albumin 3.9 LAB TBIL 0.2-1.3 mg/dL Bilirubin, Total 0.5 LAB CBIL <0.2 mg/dL Bilirubin,Conjuga <0.2 efra LAB ALKP 36-108 U/L Alkaline Phosphatase 66 LAB AST 14-40 U/L AST 34 LAB ALT 10-54 U/L ALT 24 LAB TP 6.3-8.0 g/dL Protein, Total 6.3 Performed By: #### HFP, CEA #### [facility] [address] [place], [place] [address] CEA Collected: 02/08/2018 Status: F Source: [place] 10:37 AM [facility] REPOSITORY TYPE CODE TESTS RESULT OUT OF RANGE REFERENCE UNITS LAB CEA 0.0-2.9 ng/mL CEA 2.6 Result Comment: Test analyzed by the Dina DxI method. Performed By: #### HFP, CEA #### [facility] [address] [place], [place] [address] TSH Collected: 02/08/2018 Status: F Source: [place] 10:37 AM [facility] REPOSITORY TYPE CODE TESTS RESULT OUT OF RANGE REFERENCE UNITS LAB TSH 0.400-5.500 uU/mL TSH 3.620 Performed By: #### TSH #### [facility] [address] [id number] IGOR ISTAT BMP Collected: 02/08/2018 Status: F Source: [place] 10:36 AM [facility] REPOSITORY TYPE CODE TESTS RESULT OUT OF REFERENCE UNITS RANGE LAB NAWB 135-146 mmol/L Sodium, Whole 140 Bld LAB K1WB 3.5-5.0 mmol/L Potassium,Who 4.9 le Bld LAB CLWB 98-110 mmol/L Chloride, 106 Whole Bld LAB ICAWB 1.08-1.30 mmol/L Ionized 1.22 Calcium, WB Result Comment: Please note: This value represents ionized calcium not total calcium. LAB CO2WB 23-32 mmol/L TCO2, Whole Blood 24 LAB GLUWB 65-100 mg/dL Glucose, Whole Bld 94 LAB BUNWB 10-25 mg/dL High BUN, Whole Blood 26 LAB BCRET 0.70-1.40 mg/dL Creatinine,Wh ole Bld 1.40 LAB AGAPWB 0-15 mmol/L Anion Gap, Whole Bld 10 LAB GFRAA eGFR- Amer. >60 LAB GFRNAA . eGFR-All Other Races 51 Result Comment: eGFR (Estimated GFR) Units of measure: mL/min/1.73 meters squared eGFR is derived from the reexpressed MDRD Study equation using the following parameters: serum creatinine, age, gender and race. The creatinine assay has been calibrated to be traceable to IDMS. An eGFR <60 mL/min/1.73m2 for >3 months is consistent with chronic kidney disease. Refer to KDOQI guidelines for clinical interpretation. In patients with unstable renal function, e.g. those with acute kidney injury, the eGFR may not accurately reflect actual GFR. IGOR ABS GR + CBC Collected: 02/08/2018 Status: F Source: [place] 10:36 AM [facility] REPOSITORY TYPE CODE TESTS RESULT OUT OF REFERENCE UNITS RANGE LAB WWBC 3.70-11.00 k/uL Igor WBC 4.65 LAB WRBC 4.20-6.00 m/uL Igor RBC 4.20 LAB WHGB 13.0-17.0 g/dL Igor Hemoglobin 13.9 LAB WHCT 39.0-51.0 % Igor Hematocrit 42.3 LAB WMCV 80.0-100.0 fL Igor High MCV 100.7 LAB WMCH 26.0-34.0 pg [facility] MCH 33.1 LAB WMCHC 30.5-36.0 g/dL [facility] MCHC 32.9 LAB WRDW 11.5-15.0 % Igor RDW 11.7 LAB WPLT 150-400 k/uL Igor Platelet Cnt 193 LAB WMPV 9.0-12.7 fL Igor MPV 9.9 Result Comment: Test performed at: [facility], [address] [place] [address]. LAB ABGRAN 1.45-7.50 k/uL Absol Gran 2.81 Count CNOVSP Observed: 02/08/2018 Status: COMPLETED Source: [place] 10:30 AM [facility] REPOSITORY Visit (SP) Office ([place]) SIMON PEACOCK ([id number]) 1955 M Date Time Provider Department 02/08/18 10:30 AM YOHAN ORDOÑEZ During your visit today, we recorded the following information about you: Temperature Pulse Blood pressure Weight 98.6 degrees 58/minute 121/60 83.9 kg Yohan Ordoñez DO 02/08/2018 10:44 AM Signed Diagnosis: 1) Metastatic adenocarcinoma of the colon. 2) Atrial fibrillation secondary to hypomagnesemia. HPI: The patient is a 62 yo male who had a past medical history significant for mild chronic kidney disease. The patient underwent a right sided hemicolectomy on 02/01/2016 after presenting with symptoms concerning for possible bowel obstruction. The pathology demonstrated invasive moderately differentiated adenocarcinoma extending through the bowel wall of the cecum with perforation. Lymphovascular invasion was also observed focally. One of 31 examined lymph nodes was positive for disease. Resection margins were negative. Final pathologic stage was pT4a pN1a stage IIIB. The patient then received adjuvant chemotherapy consisting of FOLFOX which was started on 03/04/2016. Following 6 cycles of therapy, the patient was hospitalized for signs and symptoms of bowel obstruction. During that hospitalization he underwent exploratory laparotomy and was found to have metastatic deposits of disease throughout the mesentery. The pathology report from 05/23/2016 demonstrated within the pathologic specimens there was an area of fat necrosis showing moderately differentiated adenocarcinoma. A right psoas nodule excision demonstrating moderately differentiated adenocarcinoma. Omentum resected in its entirety was negative for malignancy. Right kidney and right ureter, status post nephroureterectomy showed an unremarkable kidney with marked periureteral fibrosis and foci of hemorrhage negative for malignancy. A small bowel nodule was excised and it demonstrated moderately differentiated adenocarcinoma and a resected section of sigmoid colon showing a portion of colon with a minute focus of atypical cells in the serosal surface suspect for carcinoma. He was in the hospital for 19 days. He was discharged and had a follow-up appointment with Dr. Elias on 06/09. FOLFIRI was discussed and recommended. Transferred care here at that time to be closer to home. Previous therapy: 1) FOLFOX x6 cycles. 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 2) FOLFIRI with panitumumab. PD 03/2017. Current therapy: 1) Pembrolizumab. Presents for ongoing oncologic management. Interim history: He continues to tolerate treatment very well with no symptomatic autoimmune side effect. Specifically he's had no reflux, nausea or diarrhea. No constipation. Bowels are working normally and he's had no signs of GI bleeding including melena and hematochezia. No abdominal bloating, pain or distention. No episodes of jaundice or pruritus. His says his energy levels are doing really well. His appetite is normal. He's not had any episodes of fever or chills. No rash. PMH, medications and allergies as below personally reviewed by me today. Any changes documented in appropriate section. ROS: Constitutional: Denies episodes of night sweats. Neuro: Denies BECERRIL, vertigo, dizziness and imbalance. HEENT: No recent change in voice, vision or hearing. Resp: Denies cough, wheeze and hemoptysis. Denies shortness of breath at rest. Denies HOANG. CVS: Denies exertional chest pain, PND, orthopnea and LE edema. GI: Denies dysgeusia. Denies symptoms of stomatitis. Denies dysphagia and odynophagia. : Denies dysuria or gross hematuria. No symptoms of bladder outlet obstruction. Endo: Denies hot flashes. Denies polyuria and polydipsia. Denies heat and cold intolerance. Musculoskeletal: See above. Derm: See above. Heme: Denies unusual bleeding and unexplained bruising. Psych: Normal mood. PHYSICAL EXAM: Vitals: Blood pressure 121/60, pulse (!) 58, temperature 37 ?C (98.6 ?F), temperature source Temporal Artery, weight 83.9 kg (185 lb). Well-appearing and in no acute distress. EYES: Sclerae are anicteric bilaterally. NECK: Supple. No enlargement of thyroid. LYMPHATIC: There is no palpable cervical, supraclavicular, axillary adenopathy. RESPIRATORY: Inspiratory breath sounds are of normal intensity in all [place]. No rales, wheezes or rhonchi. Expiratory phase is normal. CARDIOVASCULAR: Rhythm is regular. Normal intensity S1/S2. There is no gallop or murmur. ABD: The abdomen is nondistended. There is no organomegaly or mass appreciated. No tenderness. Extremities: No swelling or edema. SKIN: The generalized hyperpigmentation is stable. No jaundice. 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 No focal motor weakness. MUSCULOSKELETAL: No muscle wasting.. ASSESSMENT/PLAN: (C18.0) Primary cancer of cecum (HCC) (primary encounter diagnosis) (C18.9, C77.2) Colon cancer metastasized to intra-abdominal lymph node (HCC) Assessment: -KPS is 90%. -Biopsy proven metastases to psoas and mesentery. -dMMR. -He is tolerating pembrolizumab for a well with no symptomatic side effect. -Most recent colonoscopy 11/27/2017--no polyps. -Most recent radiographic evaluation in November revealed complete response. Plan: -Continue pembrolizumab. -CT scans in March. 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 After* MAGNESIUM OXIDE 400 MG TABLET Take 400 mg by mouth twice da* ZOLPIDEM 10 MG TABLET Take 1 tablet by mouth at bed* PROCHLORPERAZINE MALEATE 10 M* Take 1 tablet by mouth every * More... Problem List As Of Date 02/08/2018 Noted Resolved Ceruminosis [H61.20] INVALID FOR*09/02/2016 Priority: A More... 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 Peacock presents today for his follow-up visit from: Left patella fracture He is 6 weeks post-injury and was last seen three weeks ago. History: his pain intensity is 1/10. He reports compliance with T-ROM brace locked at 70' flexion He reports no change in past medical AND surgical history, medications, allergies, social history, family history and review of systems since last visit, with the exception of the following: None Radiographs: Radiographs today revealed vertical patella fracture with appropriated alignement without displacement. Otherwise, osseous and soft tissue structures within normal limits. Physical Examination: mild tenderness about the patella with direct palpation, mild prepatellar effusion Positive EHL, FHL, AT, GS, Quads, and HS Positive distal pulses Negative Emma's, calf tenderness or palpable cords PROCEDURE: Not applicable Impression: Closed fracture left patella with routine healing Plan: T-ROM brace opened to 90' flexion May advance activity to include regular bike, light jogging Follow-up in 2-3 weeks Cory Mejia DO PROGRESS Observed: 02/03/2018 Status: COMPLETED Source: [place] 9:47 AM [facility] REPOSITORY O ID: [id number] Author: Lucia Ortiz Ma Service: (none) Author Type: (none) Type: Progress Notes Filed: 02/03/2018 10:04 AM Note Text: Patient presents with: Established Patient: 5 weeks 6 days post fracture left patella AMB ROOMING INTAKE FLOWSHEET DATA Risk Screening Do you have concerns about personal safety or safety in the home?: No Patient arrives in office wearing T-rom knee brace and is continuing to wear all the time. Patient had x-ray done yesterday at [facility]. SONA Observed: 02/03/2018 Status: COMPLETED Source: [place] 9:40 AM [facility] REPOSITORY Office Visit () SIMON PEACOCK ([id number]) 1955 M Date Time Provider Department 02/03/18 9:40 AM CORY MEJIA V During your visit today, we recorded the following information about you: Lucia Ortiz Ma 02/03/2018 10:04 AM Signed Patient presents with: Established Patient: 5 weeks 6 days post fracture left patella AMB ROOMING INTAKE FLOWSHEET DATA Risk Screening Do you have concerns about personal safety or safety in the home?: No Patient arrives in office wearing T-rom knee brace and is continuing to wear all the time. Patient had x-ray done yesterday at [facility]. Cory Mejia DO 02/03/2018 10:04 AM Signed FRACTURE FOLLOW-UP Mr. Peacock presents today for his follow-up visit from: Left patella fracture He is 6 weeks post-injury and was last seen three weeks ago. History: his pain intensity is 1/10. He reports compliance with T-ROM brace locked at 70' flexion He reports no change in past medical AND surgical history, medications, allergies, social history, family history and review of systems since last visit, with the exception of the following: None Radiographs: Radiographs today revealed vertical patella fracture with appropriated alignement without displacement. Otherwise, osseous and soft tissue structures within normal limits. Physical Examination: mild tenderness about the patella with direct palpation, mild prepatellar effusion Positive EHL, FHL, AT, GS, Quads, and HS Positive distal pulses Negative Emma's, calf tenderness or palpable cords PROCEDURE: Not applicable Impression: Closed fracture left patella with routine healing Plan: T-ROM brace opened to 90' flexion May advance activity to include regular bike, light jogging Follow-up in 2-3 weeks Cory Mejia DO Referring Provider: CORY MEJIA V [[id number]] Allergies As of Date: 02/03/2018 (No Known Allergies) Date Reviewed: 02/03/2018 Reviewed by: Lucia Ortiz Ma - Fully Assessed Reason for Visit: Established Patient [175] Cmt: 5 weeks 6 days post fracture left patella Primary Visit Diagnosis:Closed nondisplaced fracture of left patella with routine healing, unspecified fracture morphology, subsequent encounter [S82.002D] Prescriptions as of 02/03/2018 Sig: IMODIUM A-D ORAL Take 1 tablet by mouth. After* MAGNESIUM OXIDE 400 MG TABLET Take 400 mg by mouth twice da* ZOLPIDEM 10 MG TABLET Take 1 tablet by mouth at bed* PROCHLORPERAZINE MALEATE 10 M* Take 1 tablet by mouth every * More... Problem List As Of Date 02/03/2018 Noted Resolved Ceruminosis [H61.20] INVALID FOR*09/02/2016 Priority: A More... 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 follow up fractured patella 5 weeks ago TECHNIQUE: XR KNEE 4V AP/PA BOTH+LAT/NBA LT Laterality: LEFT Number of different views (projections): 4 COMPARISON: RESULT: Again identified is a vertical patellar fracture involving the lateral facet of the patella. The fractures nondisplaced. No evidence of healing at this time. Knee joint is maintained. Patellofemoral joint is maintained. Soft tissue swelling anterior to the patella. Trace joint effusion. IMPRESSION: PATELLAR FRACTURE UNCHANGED COMPARED TO PREVIOUS EXAMINATION. Switchbox Assembler: SHYLA Transcribe Date/Time: Feb 02 2018 12:06P Dictated by : YUNIER PARKS MD This examination was interpreted and the report reviewed and electronically signed by: YUNIER PARKS MD on Feb 02 2018 12:08PM EST [id number] PROGRESS Observed: 02/02/2018 Status: COMPLETED Source: [place] 9:56 AM [facility] REPOSITORY HNO ID: [id number] Author: Juliana Foster (Ct), ALETHEA Service: (none) Author Type: Clinical Food Preparation Supervisor Type: Progress Notes Filed: 02/02/2018 9:57 AM Note Text: Radiology Service Progress Note PATIENT NAME: Simon Peacock DATE OF SERVICE: February 02, 2018 TIME: 9:56 AM PATIENT IDENTITY VERIFICATION COMPLETED USING TWO (2) METHODS: Patient confirmed name verbally and Date of . PATIENT GENDER DATA: Male PATIENT RELEVANT IMPLANT DATA REVIEWED: Not Applicable RADIOLOGY DEPARTMENT: General X-ray: Exam(s) Completed: Lower Extremity X-Ray(s): Knee, AP / Lat / Tunne / Merchant Left and Wt. Bearing: PERIPHERAL IV DATA: Not applicable SIGNED BY: ALETHEA Vo February 02, 2018 9:56 AM PROGRESS Observed: 01/18/2018 Status: COMPLETED Source: [place] 10:50 AM [facility] REPOSITORY HNO ID: [id number] Author: Yohan Ordoñez Service: (none) Author Type: Physician Type: Progress Notes Filed: 01/18/2018 11:00 AM Note Text: Diagnosis: 1) Metastatic adenocarcinoma of the colon. 2) Atrial fibrillation secondary to hypomagnesemia. HPI: The patient is a 62 yo male who had a past medical history significant for mild chronic kidney disease. The patient underwent a right sided hemicolectomy on 02/01/2016 after presenting with symptoms concerning for possible bowel obstruction. The pathology demonstrated invasive moderately differentiated adenocarcinoma extending through the bowel wall of the cecum with perforation. Lymphovascular invasion was also observed focally. One of 31 examined lymph nodes was positive for disease. Resection margins were negative. Final pathologic stage was pT4a pN1a stage IIIB. The patient then received adjuvant chemotherapy consisting of FOLFOX which was started on 03/04/2016. Following 6 cycles of therapy, the patient was hospitalized for signs and symptoms of bowel obstruction. During that hospitalization he underwent exploratory laparotomy and was found to have metastatic deposits of disease throughout the mesentery. The pathology report from 05/23/2016 demonstrated within the pathologic specimens there was an area of fat necrosis showing moderately differentiated adenocarcinoma. A right psoas nodule excision demonstrating moderately differentiated adenocarcinoma. Omentum resected in its entirety was negative for malignancy. Right kidney and right ureter, status post nephroureterectomy showed an unremarkable kidney with marked periureteral fibrosis and foci of hemorrhage negative for malignancy. A small bowel nodule was excised and it demonstrated moderately differentiated adenocarcinoma and a resected section of sigmoid colon showing a portion of colon with a minute focus of atypical cells in the serosal surface suspect for carcinoma. He was in the hospital for 19 days. He was discharged and had a follow-up appointment with Dr. Elias on 06/09. FOLFIRI was discussed and recommended. Transferred care here at that time to be closer to home. Previous therapy: 1) FOLFOX x6 cycles. 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 2) FOLFIRI with panitumumab. PD 03/2017. Current therapy: 1) Pembrolizumab. Presents for ongoing oncologic management. Interim history: He continues to tolerate treatment very well and has no symptoms of side effects. Specifically he has had no diarrhea. He's had no abdominal pain, bloating or distention. His appetite is normal. He's had no nausea or vomiting. No episodes of jaundice. He has no residual symptoms of neuropathy from his original adjuvant chemotherapy. He's had no rash. His energy levels are doing well. He's been running on a regular basis. 2 weeks ago however when he was running he fell and hit his left knee directly on the knee. X-ray revealed a fracture. He is now using a T-ROM brace. He continues to walk on a consistent basis. PMH, medications and allergies as below personally reviewed by me today. Any changes documented in appropriate section. ROS: Constitutional: Denies episodes of night sweats. Neuro: Denies BECERRIL, vertigo, dizziness and imbalance. HEENT: No recent change in voice, vision or hearing. Resp: Denies cough, wheeze and hemoptysis. Denies shortness of breath at rest. Denies HOANG. CVS: Denies exertional chest pain, PND, orthopnea and LE edema. GI: Denies dysgeusia. Denies symptoms of stomatitis. Denies dysphagia and odynophagia. Denies reflux. : Denies dysuria or gross hematuria. No symptoms of bladder outlet obstruction. Endo: Denies hot flashes. Denies polyuria and polydipsia. Denies heat and cold intolerance. Musculoskeletal: See above. Derm: Denies diffuse pruritis. Heme: Denies unusual bleeding and unexplained bruising. Psych: Normal mood. PHYSICAL EXAM: Vitals: Blood pressure 117/66, pulse 67, temperature 37.2 ?C (98.9 ?F), weight 84.1 kg (185 lb 8 oz). Well-appearing and in no acute distress. EYES: Sclerae are anicteric bilaterally. NECK: Supple. No enlargement of thyroid. LYMPHATIC: There is no palpable cervical, supraclavicular, axillary adenopathy. RESPIRATORY: Inspiratory breath sounds are of normal intensity in all [place]. No rales, wheezes or rhonchi. Expiratory phase is normal. CARDIOVASCULAR: Rhythm is regular. Normal intensity S1/S2. There is no gallop or murmur. ABD: The abdomen is nondistended. There is no organomegaly or mass appreciated. No tenderness. Extremities: No swelling or edema. SKIN: The generalized hyperpigmentation is stable. No jaundice. 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 No focal motor weakness. MUSCULOSKELETAL: No muscle wasting.. ASSESSMENT/PLAN: (C18.0) Primary cancer of cecum (HCC) (primary encounter diagnosis) (C18.9, C77.2) Colon cancer metastasized to intra-abdominal lymph node (HCC) Assessment: -KPS is 90%. -Biopsy proven metastases to psoas and mesentery. -dMMR. -He is tolerating pembrolizumab for a well with no symptomatic side effect. -Most recent colonoscopy 11/27/2017--no polyps. -Most recent radiographic evaluation in November revealed complete response. Plan: -Continue pembrolizumab. -CT scans in March. Yohan Ordoñez, HEPATIC FUNCTN PANEL Collected: 01/18/2018 Status: F Source: [place] 10:34 AM [facility] [place] REPOSITORY TYPE CODE TESTS RESULT OUT OF REFERENCE UNITS RANGE LAB ALB 3.9-4.9 g/dL Albumin 3.9 LAB TBIL 0.2-1.3 mg/dL Bilirubin, Total 0.6 LAB CBIL <0.2 mg/dL Bilirubin,Conjuga <0.2 efra LAB ALKP 36-108 U/L Alkaline Phosphatase 69 LAB AST 14-40 U/L AST 24 LAB ALT 10-54 U/L ALT 20 LAB TP 6.3-8.0 g/dL Protein, Total 6.5 Performed By: #### HFP, TSH, CEA #### [facility] [address] [id number] TSH Collected: 01/18/2018 Status: F Source: [place] 10:34 AM [facility] REPOSITORY TYPE CODE TESTS RESULT OUT OF RANGE REFERENCE UNITS LAB TSH 0.400-5.500 uU/mL TSH 3.780 Performed By: #### HFP, TSH, CEA #### [facility] [address] [id number] CEA Collected: 01/18/2018 Status: F Source: [place] 10:34 AM [facility] REPOSITORY TYPE CODE TESTS RESULT OUT OF RANGE REFERENCE UNITS LAB CEA 0.0-2.9 ng/mL High CEA 3.1 Result Comment: Test analyzed by the [employer] DxI method. Performed By: #### HFP, TSH, CEA #### [address] [address] [facility]OR [place]LES BMP Collected: 01/18/2018 Status: F Source: [place] 10:33 AM [facility] REPOSITORY TYPE CODE TESTS RESULT OUT OF REFERENCE UNITS RANGE LAB NAWB 135-146 mmol/L Sodium, Whole 140 Bld LAB K1WB 3.5-5.0 mmol/L Potassium,Who 4.9 le Bld LAB CLWB 98-110 mmol/L Chloride, 105 Whole Bld LAB ICAWB 1.08-1.30 mmol/L Ionized 1.22 Calcium, WB Result Comment: Please note: This value represents ionized calcium not total calcium. LAB CO2WB 23-32 mmol/L TCO2, Whole Blood 26 LAB GLUWB 65-100 mg/dL Glucose, Whole Bld 86 LAB BUNWB 10-25 mg/dL High BUN, Whole Blood 27 LAB BCRET 0.70-1.40 mg/dL Creatinine,Wh ole Bld 1.40 LAB AGAPWB 0-15 mmol/L Anion Gap, 9 Whole Bld LAB GFRAA eGFR- Amer. >60 LAB GFRNAA . eGFR-All Other Races 51 Result Comment: eGFR (Estimated GFR) Units of measure: mL/min/1.73 meters squared eGFR is derived from the reexpressed MDRD Study equation using the following parameters: serum creatinine, age, gender and race. The creatinine assay has been calibrated to be traceable to IDMS. An eGFR <60 mL/min/1.73m2 for >3 months is consistent with chronic kidney disease. Refer to KDOQI guidelines for clinical interpretation. In patients with unstable renal function, e.g. those with acute kidney injury, the eGFR may not accurately reflect actual GFR. CNOVSP Observed: 01/18/2018 Status: COMPLETED Source: [place] 10:10 AM [facility] REPOSITORY Visit (SP) Office ([place]) SIMON PEACOCK ([id number]) 1955 M Date Time Provider Department 01/18/18 10:10 AM YOHAN ORDOÑEZ During your visit today, we recorded the following information about you: Temperature Pulse Blood pressure Weight 98.9 degrees 67/minute 117/66 84.1 kg Kristal Fernandez LPN, LPN 01/18/2018 10:54 AM Signed Est pt., discuss recent lab results, tx tomorrow DYLAN Weldon DO 01/18/2018 11:00 AM Signed Diagnosis: 1) Metastatic adenocarcinoma of the colon. 2) Atrial fibrillation secondary to hypomagnesemia. HPI: The patient is a 62 yo male who had a past medical history significant for mild chronic kidney disease. The patient underwent a right sided hemicolectomy on 02/01/2016 after presenting with symptoms concerning for possible bowel obstruction. The pathology demonstrated invasive moderately differentiated adenocarcinoma extending through the bowel wall of the cecum with perforation. Lymphovascular invasion was also observed focally. One of 31 examined lymph nodes was positive for disease. Resection margins were negative. Final pathologic stage was pT4a pN1a stage IIIB. The patient then received adjuvant chemotherapy consisting of FOLFOX which was started on 03/04/2016. Following 6 cycles of therapy, the patient was hospitalized for signs and symptoms of bowel obstruction. During that hospitalization he underwent exploratory laparotomy and was found to have metastatic deposits of disease throughout the mesentery. The pathology report from 05/23/2016 demonstrated within the pathologic specimens there was an area of fat necrosis showing moderately differentiated adenocarcinoma. A right psoas nodule excision demonstrating moderately differentiated adenocarcinoma. Omentum resected in its entirety was negative for malignancy. Right kidney and right ureter, status post nephroureterectomy showed an unremarkable kidney with marked periureteral fibrosis and foci of hemorrhage negative for malignancy. A small bowel nodule was excised and it demonstrated moderately differentiated adenocarcinoma and a resected section of sigmoid colon showing a portion of colon with a minute focus of atypical cells in the serosal surface suspect for carcinoma. He was in the hospital for 19 days. He was discharged and had a follow-up appointment with Dr. Elias on 06/09. FOLFIRI was discussed and recommended. Transferred care here at that time to be closer to home. Previous therapy: 1) FOLFOX x6 cycles. 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 2) FOLFIRI with panitumumab. PD 03/2017. Current therapy: 1) Pembrolizumab. Presents for ongoing oncologic management. Interim history: He continues to tolerate treatment very well and has no symptoms of side effects. Specifically he has had no diarrhea. He's had no abdominal pain, bloating or distention. His appetite is normal. He's had no nausea or vomiting. No episodes of jaundice. He has no residual symptoms of neuropathy from his original adjuvant chemotherapy. He's had no rash. His energy levels are doing well. He's been running on a regular basis. 2 weeks ago however when he was running he fell and hit his left knee directly on the knee. X-ray revealed a fracture. He is now using a T-ROM brace. He continues to walk on a consistent basis. PMH, medications and allergies as below personally reviewed by me today. Any changes documented in appropriate section. ROS: Constitutional: Denies episodes of night sweats. Neuro: Denies BECERRIL, vertigo, dizziness and imbalance. HEENT: No recent change in voice, vision or hearing. Resp: Denies cough, wheeze and hemoptysis. Denies shortness of breath at rest. Denies HOANG. CVS: Denies exertional chest pain, PND, orthopnea and LE edema. GI: Denies dysgeusia. Denies symptoms of stomatitis. Denies dysphagia and odynophagia. Denies reflux. : Denies dysuria or gross hematuria. No symptoms of bladder outlet obstruction. Endo: Denies hot flashes. Denies polyuria and polydipsia. Denies heat and cold intolerance. Musculoskeletal: See above. Derm: Denies diffuse pruritis. Heme: Denies unusual bleeding and unexplained bruising. Psych: Normal mood. PHYSICAL EXAM: Vitals: Blood pressure 117/66, pulse 67, temperature 37.2 ?C (98.9 ?F), weight 84.1 kg (185 lb 8 oz). Well-appearing and in no acute distress. EYES: Sclerae are anicteric bilaterally. NECK: Supple. No enlargement of thyroid. LYMPHATIC: There is no palpable cervical, supraclavicular, axillary adenopathy. RESPIRATORY: Inspiratory breath sounds are of normal intensity in all [place]. No rales, wheezes or rhonchi. Expiratory phase is normal. CARDIOVASCULAR: Rhythm is regular. Normal intensity S1/S2. There is no gallop or murmur. ABD: The abdomen is nondistended. There is no organomegaly or mass appreciated. No tenderness. Extremities: No swelling or edema. SKIN: The generalized hyperpigmentation is stable. No jaundice. 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 No focal motor weakness. MUSCULOSKELETAL: No muscle wasting.. ASSESSMENT/PLAN: (C18.0) Primary cancer of cecum (HCC) (primary encounter diagnosis) (C18.9, C77.2) Colon cancer metastasized to intra-abdominal lymph node (HCC) Assessment: -KPS is 90%. -Biopsy proven metastases to psoas and mesentery. -dMMR. -He is tolerating pembrolizumab for a well with no symptomatic side effect. -Most recent colonoscopy 11/27/2017--no polyps. -Most recent radiographic evaluation in November revealed complete response. Plan: -Continue pembrolizumab. -CT scans in March. Yohan Ordoñez DO Referring Provider: YOHAN ORDOÑEZ [[id number]] Allergies As of Date: 01/18/2018 (No Known Allergies) Date Reviewed: 01/18/2018 Reviewed by: Kristal Cruz) DYLAN Fernandez - Fully Assessed Reason for Visit: Established Patient [175] Primary Visit Diagnosis: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] Other Visit Diagnosis:Colon cancer metastasized to intra- abdominal lymph node (HCC) [C18.9, C77.2] Prescriptions as of 01/18/2018 Sig: IMODIUM A-D ORAL Take 1 tablet by mouth. After* MAGNESIUM OXIDE 400 MG TABLET Take 400 mg by mouth twice da* ZOLPIDEM 10 MG TABLET Take 1 tablet by mouth at bed* PROCHLORPERAZINE MALEATE 10 M* Take 1 tablet by mouth every * More... Problem List As Of Date 01/18/2018 Noted Resolved Ceruminosis [H61.20] INVALID FOR*09/02/2016 Priority: A More... 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 Peacock presents today for his follow-up visit from: Left patella fracture He is three weeks post-injury and was last seen two weeks ago. History: his pain intensity is 1/10. He reports compliance with T-ROM brace locked at 30' flexion He reports no change in past medical AND surgical history, medications, allergies, social history, family history and review of systems since last visit, with the exception of the following: None Radiographs: Radiographs today revealed vertical patella fracture with appropriated alignement without displacement. Otherwise, osseous and soft tissue structures within normal limits. Physical Examination: mild tenderness about the patella with direct palpation, mild prepatellar effusion Positive EHL, FHL, AT, GS, Quads, and HS Positive distal pulses Negative Emma's, calf tenderness or palpable cords PROCEDURE: Not applicable Impression: Closed fracture left patella with routine healing Plan: T-ROM brace opened to 70' flexion May advance activity to include stationary bike Follow-up in 3 weeks Cory Mejia DO PROGRESS Observed: 01/13/2018 Status: COMPLETED Source: [place] 9:50 AM [facility] REPOSITORY O ID: [id number] Author: Nella Gomes Ma Service: (none) Author Type: (none) Type: Progress Notes Filed: 01/13/2018 10:27 AM Note Text: AMB ROOMING INTAKE FLOWSHEET DATA Risk Screening Do you have concerns about personal safety or safety in the home?: No Pain Pain Score: 1/10 Pain Location: Knee-Left Description: Aching Duration Amount of Time: (ongoing) Frequency: Continuous Intervention: Splinting Patient here today for 2 week 6 days post left patella fx. Has small amount of pain. Is having an issue with TROM sliding down on his leg. CNOV Observed: 01/13/2018 Status: COMPLETED Source: [place] 9:40 AM [facility] REPOSITORY Office Visit () SIMON PEACOCK ([id number]) 1955 M Date Time Provider Department 01/13/18 9:40 AM CORY MEJIA V During your visit today, we recorded the following information about you: Nella Gomes Ma 01/13/2018 10:27 AM Signed AMB ROOMING INTAKE FLOWSHEET DATA Risk Screening Do you have concerns about personal safety or safety in the home?: No Pain Pain Score: 1/10 Pain Location: Knee-Left Description: Aching Duration Amount of Time: (ongoing) Frequency: Continuous Intervention: Splinting Patient here today for 2 week 6 days post left patella fx. Has small amount of pain. Is having an issue with TROM sliding down on his leg. Cory Mejia DO 01/13/2018 10:27 AM Signed FRACTURE FOLLOW-UP Mr. Peacock presents today for his follow-up visit from: Left patella fracture He is three weeks post-injury and was last seen two weeks ago. History: his pain intensity is 1/10. He reports compliance with T-ROM brace locked at 30' flexion He reports no change in past medical ANDamp; surgical history, medications, allergies, social history, family history and review of systems since last visit, with the exception of the following: None Radiographs: Radiographs today revealed vertical patella fracture with appropriated alignement without displacement. Otherwise, osseous and soft tissue structures within normal limits. Physical Examination: mild tenderness about the patella with direct palpation, mild prepatellar effusion Positive EHL, FHL, AT, GS, Quads, and HS Positive distal pulses Negative Emma's, calf tenderness or palpable cords PROCEDURE: Not applicable Impression: Closed fracture left patella with routine healing Plan: T-ROM brace opened to 70' flexion May advance activity to include stationary bike Follow-up in 3 weeks Cory Mejia DO Referring Provider: CORY MEJIA V [[id number]] Allergies As of Date: 01/13/2018 (No Known Allergies) Date Reviewed: 01/13/2018 Reviewed by: Nella Gomes Ma - Fully Assessed Reason for Visit: Established Patient [175] Cmt: 2 week 6 days post left patella fx Primary Visit Diagnosis:Closed nondisplaced fracture of left patella with routine healing, unspecified fracture morphology, subsequent encounter [S82.002D] Prescriptions as of 01/13/2018 Sig: MAGNESIUM OXIDE 400 MG TABLET Take 400 mg by mouth twice da* IMODIUM A-D ORAL Take 1 tablet by mouth. After* ZOLPIDEM 10 MG TABLET Take 1 tablet by mouth at bed* PROCHLORPERAZINE MALEATE 10 M* Take 1 tablet by mouth every * More... Problem List As Of Date 01/13/2018 Noted Resolved Ceruminosis [H61.20] INVALID FOR*09/02/2016 Priority: A More... 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 The bones appear osteopenic. A nondisplaced patellar fracture is again seen. There is a small suprapatellar joint effusion. There is mild medial joint space narrowing. No other fracture is seen. IMPRESSION: Patellar fracture Switchbox Assembler: SHYLA Transcribe Date/Time: Jan 14 2018 10:11A Dictated by : SANJIV ESCOTO MD This examination was interpreted and the report reviewed and electronically signed by: SANJIV ESCOTO MD on Jan 14 2018 10:12AM EST [id number] PROGRESS Observed: 01/13/2018 Status: COMPLETED Source: [place] 9:27 AM [facility] REPOSITORY HNO ID: [id number] Author: Megha Pink (Tech) Service: (none) Author Type: Food Preparation Supervisor Type: Progress Notes Filed: 01/13/2018 9:38 AM Note Text: Radiology Service Progress Note PATIENT NAME: Simon Peacock DATE OF SERVICE: January 13, 2018 TIME: 9:27 AM PATIENT IDENTITY VERIFICATION COMPLETED USING TWO (2) METHODS: Patient confirmed name verbally and Date of . PATIENT GENDER DATA: Male PATIENT RELEVANT IMPLANT DATA REVIEWED: Not Applicable RADIOLOGY DEPARTMENT: General X-ray: Exam(s) Completed: Lower Extremity X-Ray(s): Knee, AP / LAT Left and Wt. Bearing: with obliques PERIPHERAL IV DATA: Not applicable SIGNED BY: Megha Srivastava January 13, 2018 9:27 AM PROGRESS Observed: 12/30/2017 Status: COMPLETED Source: [place] 11:27 AM [facility] REPOSITORY HNO ID: [id number] Author: Francoise TrianaRn) RUBÉN Bonds Service: (none) Author Type: Registered Nurse Type: Progress Notes Filed: 12/30/2017 12:19 PM Note Text: PT ASSESSMENT - CASTING ROOM Simon presents for Application of brace. Applied T-ROM Advance to Left knee Patient has been instructed in Care and proper application of brace. Patient signed Greg Sanchez agreement. Francoise Bonds RN PROGRESS Observed: 12/30/2017 Status: COMPLETED Source: [place] 10:37 AM [facility] REPOSITORY HNO ID: [id number] Author: Cory Mejia V Service: (none) Author Type: Physician Type: Progress Notes Filed: 12/30/2017 12:19 PM Note Text: SUBJECTIVE: Simon Peacock is a 62 year old male who is here for a left knee injury. It occurred 6 days ago when he was jogging, fell on left knee. Symptoms include pain over patella, swelling. He is able to walk with mild discomfort. Unable to kneel or jog. PAST MEDICAL HISTORY Diagnosis Date - Cancer of cecum (HCC) 01/2017 PAST SURGICAL HISTORY Procedure Laterality Date - BOWEL RESECTION HX 02/01/2016 - BOWEL RESECTION HX 05/23/16 - COLONOSCOPY 11/27/2017 normal - 3 year follow up - KIDNEY SURGERY HX 05/23/2016 - PAST SURGICAL HISTORY OF age 39 left abominal skin surgery Current Outpatient Prescriptions on File Prior to Visit: LOPERAMIDE HCL (IMODIUM A-D ORAL) Take 1 tablet by mouth. After each loose stool prn magnesium oxide (MAG-OX) 400 mg tablet Take 400 mg by mouth twice daily. zolpidem (AMBIEN) 10 mg tab Take 1 tablet by mouth at bedtime as needed. FOR INSOMNIA prochlorperazine (COMPAZINE) 10 mg tablet Take 1 tablet by mouth every 6 hours as needed. No current facility-administered medications on file prior to visit. EXAM: General: cooperative and NAD Location: Left leg: prepatellar effusion, tender over patella with direct palpation. Negative for: deformity, crepitation or instability Neurovascular: intact X-ray: significant for nondisplaced, comminuted fracture left patella IMPRESSION: left patella fracture- acute PLAN: T-ROM brace applied, locked out at 30 degrees flexion Patient Instructions: rest, apply ice as instructed, elevate, call for concerning symptoms, increase or change in symptoms., recheck in 2 weeks, repeat x-ray at that time. Cory Mejia DO PROGRESS Observed: 12/30/2017 Status: COMPLETED Source: [place] 10:20 AM [facility] [place] [facility] O ID: [id number] Author: Francoise (Rn) RUBÉN Bonds Service: (none) Author Type: Registered Nurse Type: Progress Notes Filed: 12/30/2017 12:19 PM Note Text: AMB ROOMING INTAKE FLOWSHEET DATA Pain Pain Score: (2-8) Pain Location: Knee-Left Description: Sharp Duration Amount of Time: 7 Duration Units: Days Frequency: Intermittent Intervention: Medication (motrin ) Patient presents with: New Patient: left patella fx, ref- Masci, Xray- 12/29/17 patient is here for left patella fracture and had xray completed on . Patient states he was jogging on sidewalk on December 24 and fell injuring his knee. Patient sees Dr. alvarez for cancer of cecum. Patient states he has pain when stepping wrong, he has been taking motrin for swelling and pain. Francoise Bonds RN CNOV Observed: 12/30/2017 Status: COMPLETED Source: [place] 10:00 AM [facility] REPOSITORY Office Visit ([facility]) SIMON PEACOCK ([id number]) 1955 M Date Time Provider Department 12/30/17 10:00 AM CORY MEJIA During your visit today, we recorded the following information about you: Francoise Bonds RN, RN 12/30/2017 12:19 PM Signed AMB ROOMING INTAKE FLOWSHEET DATA Pain Pain Score: (2-8) Pain Location: Knee-Left Description: Sharp Duration Amount of Time: 7 Duration Units: Days Frequency: Intermittent Intervention: Medication (motrin ) Patient presents with: New Patient: left patella fx, ref- Masci, Xray- 12/29/17 patient is here for left patella fracture and had xray completed on . Patient states he was jogging on sidewalk on December 24 and fell injuring his knee. Patient sees Dr. alvarez for cancer of cecum. Patient states he has pain when stepping wrong, he has been taking motrin for swelling and pain. RUBÉN De, 12/30/2017 12:19 PM Signed SUBJECTIVE: Simon Peacock is a 62 year old male who is here for a left knee injury. It occurred 6 days ago when he was jogging, fell on left knee. Symptoms include pain over patella, swelling. He is able to walk with mild discomfort. Unable to kneel or jog. PAST MEDICAL HISTORY Diagnosis Date - Cancer of cecum (HCC) 01/2017 PAST SURGICAL HISTORY Procedure Laterality Date - BOWEL RESECTION HX 02/01/2016 - BOWEL RESECTION HX 05/23/16 - COLONOSCOPY 11/27/2017 normal - 3 year follow up - KIDNEY SURGERY HX 05/23/2016 - PAST SURGICAL HISTORY OF age 39 left abominal skin surgery Current Outpatient Prescriptions on File Prior to Visit: LOPERAMIDE HCL (IMODIUM A-D ORAL) Take 1 tablet by mouth. After each loose stool prn magnesium oxide (MAG-OX) 400 mg tablet Take 400 mg by mouth twice daily. zolpidem (AMBIEN) 10 mg tab Take 1 tablet by mouth at bedtime as needed. FOR INSOMNIA prochlorperazine (COMPAZINE) 10 mg tablet Take 1 tablet by mouth every 6 hours as needed. No current facility-administered medications on file prior to visit. EXAM: General: cooperative and NAD Location: Left leg: prepatellar effusion, tender over patella with direct palpation. Negative for: deformity, crepitation or instability Neurovascular: intact X-ray: significant for nondisplaced, comminuted fracture left patella IMPRESSION: left patella fracture- acute PLAN: T-ROM brace applied, locked out at 30 degrees flexion Patient Instructions: rest, apply ice as instructed, elevate, call for concerning symptoms, increase or change in symptoms., recheck in 2 weeks, repeat x-ray at that time. DO Francoise Dawn RN, RN 12/30/2017 12:19 PM Signed PT ASSESSMENT - CASTING ROOM Simon presents for Application of brace. Applied T-ROM Advance to Left knee Patient has been instructed in Care and proper application of brace. Patient signed Greg Sanchez agreement. Francoise Bonds RN Referring Provider: YOHAN ORDOÑEZ [[id number]] Allergies As of Date: 12/30/2017 (No Known Allergies) Date Reviewed: 12/30/2017 Reviewed by: Francoise (Rubén) RUBÉN Bonds - Fully Assessed Reason for Visit: New Patient [172] Cmt: left patella fx, ref- Gus Ordoñez- 12/29/17 Reason For Visit History Recorded Primary Visit Diagnosis:Closed nondisplaced fracture of right patella, unspecified fracture morphology, initial encounter [S82.001A] Order(s):XR KNEE INJURY 4V AP/LAT/OBLS LT [[id number]] Order #: [id number] FUTURE Prescriptions as of 12/30/2017 Sig: IMODIUM A-D ORAL Take 1 tablet by mouth. After* MAGNESIUM OXIDE 400 MG TABLET Take 400 mg by mouth twice da* ZOLPIDEM 10 MG TABLET Take 1 tablet by mouth at bed* PROCHLORPERAZINE MALEATE 10 M* Take 1 tablet by mouth every * More... Problem List As Of Date 12/30/2017 Noted Resolved Ceruminosis [H61.20] INVALID FOR*09/02/2016 Priority: A More... 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 Anterior left knee pain.. Pain in left knee . TECHNIQUE: XR KNEE 2V AP/LAT LT Laterality: LEFT Number of different views (projections): 2 COMPARISON: None RESULT: Nondisplaced comminuted fracture of the patella. No additional fracture. Bones are osteoporotic. Small effusion in the suprapatellar recess. IMPRESSION: Acute fracture of the patella. Switchbox Assembler: PSCAlyse Transcribe Date/Time: Dec 29 2017 10:11P Dictated by : ARIEL STONE MD This examination was interpreted and the report reviewed and electronically signed by: ARIEL STONE MD on Dec 29 2017 10:13PM EST [id number] PROGRESS Observed: 12/29/2017 Status: COMPLETED Source: [place] 1:49 PM [facility] REPOSITORY HNO ID: [id number] Author: Radha Montoya (Rt) Megha Travis Service: (none) Author Type: Food Preparation Supervisor Type: Progress Notes Filed: 12/29/2017 1:59 PM Note Text: Radiology Service Progress Note PATIENT NAME: Simon Peacock DATE OF SERVICE: December 29, 2017 TIME: 1:49 PM PATIENT IDENTITY VERIFICATION COMPLETED USING TWO (2) METHODS: Patient confirmed name verbally and Date of . PATIENT GENDER DATA: Male PATIENT RELEVANT IMPLANT DATA REVIEWED: Not Applicable RADIOLOGY DEPARTMENT: General X-ray: Exam(s) Completed: Lower Extremity X-Ray(s): Knee, AP / LAT Left: PERIPHERAL IV DATA: Not applicable SIGNED BY: RT Suellen December 29, 2017 1:49 PM PROGRESS Observed: 12/07/2017 Status: COMPLETED Source: [place] 10:18 AM [facility] REPOSITORY [facility] ID: [id number] Author: Yohan Ordoñez Service: (none) Author Type: Physician Type: Progress Notes Filed: 12/07/2017 10:35 AM Note Text: Diagnosis: 1) Metastatic adenocarcinoma of the colon. 2) Atrial fibrillation secondary to hypomagnesemia. HPI: The patient is a 62 yo male who had a past medical history significant for mild chronic kidney disease. The patient underwent a right sided hemicolectomy on 02/01/2016 after presenting with symptoms concerning for possible bowel obstruction. The pathology demonstrated invasive moderately differentiated adenocarcinoma extending through the bowel wall of the cecum with perforation. Lymphovascular invasion was also observed focally. One of 31 examined lymph nodes was positive for disease. Resection margins were negative. Final pathologic stage was pT4a pN1a stage IIIB. The patient then received adjuvant chemotherapy consisting of FOLFOX which was started on 03/04/2016. Following 6 cycles of therapy, the patient was hospitalized for signs and symptoms of bowel obstruction. During that hospitalization he underwent exploratory laparotomy and was found to have metastatic deposits of disease throughout the mesentery. The pathology report from 05/23/2016 demonstrated within the pathologic specimens there was an area of fat necrosis showing moderately differentiated adenocarcinoma. A right psoas nodule excision demonstrating moderately differentiated adenocarcinoma. Omentum resected in its entirety was negative for malignancy. Right kidney and right ureter, status post nephroureterectomy showed an unremarkable kidney with marked periureteral fibrosis and foci of hemorrhage negative for malignancy. A small bowel nodule was excised and it demonstrated moderately differentiated adenocarcinoma and a resected section of sigmoid colon showing a portion of colon with a minute focus of atypical cells in the serosal surface suspect for carcinoma. He was in the hospital for 19 days. He was discharged and had a follow-up appointment with Dr. Elias on 06/09. FOLFIRI was discussed and recommended. Transferred care here at that time to be closer to home. Previous therapy: 1) FOLFOX x6 cycles. 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 2) FOLFIRI with panitumumab. PD 03/2017. Current therapy: 1) Pembrolizumab. Presents for ongoing oncologic management. Interim history: I have no side effects whatsoever from treatment. PMH, medications and allergies as below personally reviewed by me today. Any changes documented in appropriate section. ROS: Constitutional: Denies episodes of night sweats. Neuro: Denies BECERRIL, vertigo, dizziness and imbalance. HEENT: No recent change in voice, vision or hearing. Resp: Denies cough, wheeze and hemoptysis. Denies shortness of breath at rest. Denies HOANG. CVS: Denies exertional chest pain, PND, orthopnea and LE edema. GI: Denies dysgeusia. Denies symptoms of stomatitis. Denies dysphagia and odynophagia. Denies reflux. : Denies dysuria or gross hematuria. No symptoms of bladder outlet obstruction. Endo: Denies hot flashes. Denies polyuria and polydipsia. Denies heat and cold intolerance. Musculoskeletal: Denies bone, back, joint and muscular pain. Derm: Denies diffuse pruritis. Heme: Denies unusual bleeding and unexplained bruising. Psych: Normal mood. PHYSICAL EXAM: Vitals: Blood pressure 110/65, pulse 77, temperature 36.6 ?C (97.9 ?F), weight 84.8 kg (187 lb). Well-appearing and in no acute distress. EYES: Sclerae are anicteric bilaterally. NECK: Supple. No enlargement of thyroid. LYMPHATIC: There is no palpable cervical, supraclavicular, axillary adenopathy. RESPIRATORY: Inspiratory breath sounds are of normal intensity in all [place]. No rales, wheezes or rhonchi. Expiratory phase is normal. CARDIOVASCULAR: Rhythm is regular. Normal intensity S1/S2. There is no gallop or murmur. ABD: The abdomen is nondistended. There is no organomegaly or mass appreciated. No tenderness. Extremities: No swelling or edema. SKIN: The generalized hyperpigmentation is stable. No jaundice. 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 No focal motor weakness. MUSCULOSKELETAL: No joint swelling or tenderness. Mild muscle wasting. ASSESSMENT/PLAN: (C18.0) Primary cancer of cecum (HCC) (primary encounter diagnosis) (C18.9, C77.2) Colon cancer metastasized to intra-abdominal lymph node (HCC) Assessment: -KPS is 90%. -Biopsy proven metastases to psoas and mesentery. -dMMR. -He is tolerating pembrolizumab for a well with no symptomatic side effect. -Most recent colonoscopy 11/27/2017--no polyps. -I personally reviewed CT images and again with patient and independently verified and agreed with the radiologist's findings. CR now. Plan: -Continue pembrolizumab. -CT scans in 3-6 months. Yohan Ordoñez DO CNOVSP Observed: 12/07/2017 Status: COMPLETED Source: [place] 10:10 AM [facility] REPOS[facility]ORY Visit (SP) Office ([place]) SIMON PEACOCK ([id number]) 1955 M Date Time Provider Department 12/07/17 10:10 AM YOHAN ORDOÑEZ During your visit today, we recorded the following information about you: Temperature Pulse Blood pressure Weight 97.9 degrees 77/minute 110/65 84.8 kg Yohan Ordoñez DO 12/07/2017 10:35 AM Signed Diagnosis: 1) Metastatic adenocarcinoma of the colon. 2) Atrial fibrillation secondary to hypomagnesemia. HPI: The patient is a 62 yo male who had a past medical history significant for mild chronic kidney disease. The patient underwent a right sided hemicolectomy on 02/01/2016 after presenting with symptoms concerning for possible bowel obstruction. The pathology demonstrated invasive moderately differentiated adenocarcinoma extending through the bowel wall of the cecum with perforation. Lymphovascular invasion was also observed focally. One of 31 examined lymph nodes was positive for disease. Resection margins were negative. Final pathologic stage was pT4a pN1a stage IIIB. The patient then received adjuvant chemotherapy consisting of FOLFOX which was started on 03/04/2016. Following 6 cycles of therapy, the patient was hospitalized for signs and symptoms of bowel obstruction. During that hospitalization he underwent exploratory laparotomy and was found to have metastatic deposits of disease throughout the mesentery. The pathology report from 05/23/2016 demonstrated within the pathologic specimens there was an area of ANDquot;fat necrosisANDquot; showing moderately differentiated adenocarcinoma. A right psoas nodule excision demonstrating moderately differentiated adenocarcinoma. Omentum resected in its entirety was negative for malignancy. Right kidney and right ureter, status post nephroureterectomy showed an unremarkable kidney with marked periureteral fibrosis and foci of hemorrhage negative for malignancy. A small bowel nodule was excised and it demonstrated moderately differentiated adenocarcinoma and a resected section of sigmoid colon showing a portion of colon with a minute focus of atypical cells in the serosal surface suspect for carcinoma. He was in the hospital for 19 days. He was discharged and had a follow-up appointment with Dr. Elias on 06/09. FOLFIRI was discussed and recommended. Transferred care here at that time to be closer to home. Previous therapy: 1) FOLFOX x6 cycles. 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 2) FOLFIRI with panitumumab. PD 03/2017. Current therapy: 1) Pembrolizumab. Presents for ongoing oncologic management. Interim history: ANDquot;I have no side effects whatsoever from treatment.ANDquot; PMH, medications and allergies as below personally reviewed by me today. Any changes documented in appropriate section. ROS: Constitutional: Denies episodes of night sweats. Neuro: Denies BECERRIL, vertigo, dizziness and imbalance. HEENT: No recent change in voice, vision or hearing. Resp: Denies cough, wheeze and hemoptysis. Denies shortness of breath at rest. Denies HOANG. CVS: Denies exertional chest pain, PND, orthopnea and LE edema. GI: Denies dysgeusia. Denies symptoms of stomatitis. Denies dysphagia and odynophagia. Denies reflux. : Denies dysuria or gross hematuria. No symptoms of bladder outlet obstruction. Endo: Denies hot flashes. Denies polyuria and polydipsia. Denies heat and cold intolerance. Musculoskeletal: Denies bone, back, joint and muscular pain. Derm: Denies diffuse pruritis. Heme: Denies unusual bleeding and unexplained bruising. Psych: Normal mood. PHYSICAL EXAM: Vitals: Blood pressure 110/65, pulse 77, temperature 36.6 ?C (97.9 ?F), weight 84.8 kg (187 lb). Well-appearing and in no acute distress. EYES: Sclerae are anicteric bilaterally. NECK: Supple. No enlargement of thyroid. LYMPHATIC: There is no palpable cervical, supraclavicular, axillary adenopathy. RESPIRATORY: Inspiratory breath sounds are of normal intensity in all [place]. No rales, wheezes or rhonchi. Expiratory phase is normal. CARDIOVASCULAR: Rhythm is regular. Normal intensity S1/S2. There is no gallop or murmur. ABD: The abdomen is nondistended. There is no organomegaly or mass appreciated. No tenderness. Extremities: No swelling or edema. SKIN: The generalized hyperpigmentation is stable. No jaundice. 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 No focal motor weakness. MUSCULOSKELETAL: No joint swelling or tenderness. Mild muscle wasting. ASSESSMENT/PLAN: (C18.0) Primary cancer of cecum (HCC) (primary encounter diagnosis) (C18.9, C77.2) Colon cancer metastasized to intra-abdominal lymph node (HCC) Assessment: -KPS is 90%. -Biopsy proven metastases to psoas and mesentery. -dMMR. -He is tolerating pembrolizumab for a well with no symptomatic side effect. -Most recent colonoscopy 11/27/2017--no polyps. -I personally reviewed CT images and again with patient and independently verified and agreed with the radiologist's findings. CR now. Plan: -Continue pembrolizumab. -CT scans in 3-6 months. DO Kristal Castellano LPN, LPN 12/07/2017 10:27 AM Signed Est pt, discuss recent lab results and ct scan tx tomorrow. 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 After* MAGNESIUM OXIDE 400 MG TABLET Take 400 mg by mouth twice da* ZOLPIDEM 10 MG TABLET Take 1 tablet by mouth at bed* PROCHLORPERAZINE MALEATE 10 M* Take 1 tablet by mouth every * More... Problem List As Of Date 12/07/2017 Noted Resolved Ceruminosis [H61.20] INVALID FOR*09/02/2016 Priority: A More... 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 Kristal Fernandez LPN Encounter Status:Closed by YOHAN ORDOÑEZ DO on 12/07/17 PROGRESS Observed: 2017 Status: COMPLETED Source: [place] 10:23 AM [facility] REPOSITORY O ID: [id number] Author: Sara Crow Ct Service: (none) Author Type: (none) Type: Progress Notes Filed: 2017 10:23 AM Note Text: Radiology Service Progress Note PATIENT NAME: Simon Peacock DATE OF SERVICE: 2017 TIME: 10:23 AM PATIENT IDENTITY VERIFICATION COMPLETED USING TWO (2) METHODS: Patient confirmed name verbally and Date of . PATIENT GENDER DATA: Male PATIENT RELEVANT IMPLANT DATA REVIEWED: Yes CONTRAST INDUCED NEPHROPATHY RISK FACTORS: Patient age > 60 years CREATININE: Creatinine Date Value Ref Range Status 11/17/2017 1.47 (H) 0.73 - 1.22 mg/dL Final 10/06/2017 1.45 (H) 0.73 - 1.22 mg/dL Final 07/31/2017 1.60 (H) 0.6 - 1.2 mg/dL Final Creatinine, Whole Blood (iSTAT) Date Value Ref Range Status 2017 1.40 0.70 - 1.40 mg/dL Final 10/26/2017 1.50 (H) 0.70 - 1.40 mg/dL Final 09/11/2017 1.50 (H) 0.70 - 1.40 mg/dL Final eGFR-All Other Races Date Value Ref Range Status 2017 51 . Final Comment: eGFR (Estimated GFR) Units of measure: mL/min/1.73 meters squared eGFR is derived from the reexpressed MDRD Study equation using the following parameters: serum creatinine, age, gender and race. The creatinine assay has been calibrated to be traceable to IDMS. An eGFR <60 mL/min/1.73m2 for >3 months is consistent with chronic kidney disease. Refer to KDOQI guidelines for clinical interpretation. In patients with unstable renal function, e.g. those with acute kidney injury, the eGFR may not accurately reflect actual GFR. eGFR- Date Value Ref Range Status 2017 >60 Final P.O.C.T. RESULTS: POC done: Yes, See Lab Tab 2017 RADIOLOGIST NOTIFIED?: No ALLERGIES: Reviewed and unchanged CONTRAST ALLERGY: NO. PERIPHERAL IV ACCESS: power port accessed by [employer] RADIOLOGY DEPARTMENT: CT; Exam(s) Completed: Chest Abdomen Pelvis SIGNED BY: Sara Crow Ct 2017 10:[address] ABD/PEL W IVCON Observed: 2017 Status: F Source: [place] 9:26 AM [facility] REPOSITORY * * *Final Report* * * DATE OF EXAM: 2017 9:26AM [facility] 0530 - CT ABD/PEL W IVCON / PROCEDURE REASON: multiple diagnoses * * * * Physician Interpretation * * * * EXAMINATION: CT ABDOMEN AND PELVIS WITH IV CONTRAST CLINICAL HISTORY: Colon cancer follow-up TECHNIQUE: CT of the abdomen and pelvis was performed using standard technique, scanning from just above the dome of the diaphragm to the symphysis pubis. MQ: CTAP_3 Contrast: Other: 100 ml of Omnipaque 300 Oral: 50 ml of 50ML Omnipaque [address] Radiation dose: Integrated Dose-length product (DLP) for this visit = 763 mGy*cm. CT Dose Reduction Employed: Automated exposure control (AEC) COMPARISON: 06/12/2017 RESULT: Liver: No mass. Biliary: No bile duct dilation. Gallbladder is unremarkable. Spleen: No mass. No splenomegaly. Pancreas: No mass or duct dilation. Adrenals: No mass. Kidneys: No mass in the RIGHT nephrectomy bed. Left parapelvic cysts. No solid mass, calculus, or hydronephrosis. GI tract: No dilation or wall thickening. Large amount of colonic feces. Lymph nodes: No abdominal or pelvic lymphadenopathy. Mesentery/Peritoneum: No ascites or mass. Implant along the RIGHT colon seen on the prior exam is no longer present Retroperitoneum: No mass. Vasculature: The celiac axis and SMA are patent. The portal vein and branches, splenic vein, SMV, and hepatic veins are patent. Normal caliber aorta. Pelvis: No mass, ascites or fluid collection. Normal bladder wall thickness. Bones/Soft Tissues: Degenerative changes in the spine. No neoplastic bone disease. Lower thorax: A chest CT was performed and will be reported separately. IMPRESSION: NO METASTATIC DISEASE IN THE ABDOMEN OR PELVIS RESOLUTION OF PREVIOUSLY SEEN RIGHT PERICOLONIC IMPLANT Switchbox Assembler: PSCAlyse Transcribe Date/Time: 2017 12:49P Dictated by : PATIENCE WEI MD This examination was interpreted and the report reviewed and electronically signed by: PATIENCE WEI MD on 2017 12:55PM EST [id number] CT CHEST W IVCON Observed: 2017 Status: F Source: [place] 9:26 AM [facility] REPOSITORY * * *Final Report* * * DATE OF EXAM: 2017 9:26AM [facility] 0539 - CT CHEST W IVCON / PROCEDURE REASON: multiple diagnoses * * * * Physician Interpretation * * * * EXAMINATION: CHEST CT WITH CONTRAST Indication: Malignant neoplasm of cecum Malignant neoplasm of colon, unspecified Secondary and unspecified malignant neoplasm of intra-abdominal lymph nodes Secondary malignant neoplasm of retroperitoneum and peritoneum Technique: Spiral CT acquisition of the chest from the thoracic inlet to the upper abdomen following IV contrast. MQ: CTCW_4 Contrast: 100 mL Omnipaque [address] Dose-Length Product: 763 mGy*cm CT Dose Reduction Employed: Automated exposure control (AEC) Comparison: CT chest on 06/12/2017 RESULT: Limitations: None. Lines, tubes, and devices: None. Lung parenchyma and pleura: The central airways are patent. There are irregular patchy consolidations in the right middle lobe and bandlike opacities in right lower lobe, similar to prior study. Stable subpleural lines in the left lower lobe. No concerning pulmonary nodules. No masses. No new consolidative opacities identified. No pleural effusions or pneumothorax. Thoracic inlet, heart, and mediastinum: Stable thyroid gland. No supraclavicular, axillary or mediastinal lymphadenopathy. The thoracic aorta, central pulmonary arteries and cardiac chambers are unchanged. No pericardial effusion or thickening. There is a small hiatal hernia. Bones and soft tissues: No destructive bone lesion. Chest wall is unremarkable. Upper abdomen: A dedicated CT abdomen and pelvis was performed concurrently and has been reported separately. IMPRESSION: Stable chest with no acute findings identified. No concerning pulmonary nodules or lymphadenopathy in the chest. Switchbox Assembler: PSCB Transcribe Date/Time: Dec 04 2017 10:09A Dictated by : SHAKIRA CHAUDHRY MD This examination was interpreted and the report reviewed and electronically signed by: SHAKIRA CHAUDHRY MD on Dec 04 2017 1:41PM EST [id number] IGOR ISTAT BMP Collected: 2017 Status: F Source: [place] 8:30 AM [facility] REPOSITORY TYPE CODE TESTS RESULT OUT OF REFERENCE UNITS RANGE LAB NAWB 135-146 mmol/L Sodium, Whole 139 Bld LAB K1WB 3.5-5.0 mmol/L Potassium,Who 4.9 le Bld LAB CLWB 98-110 mmol/L Chloride, 103 Whole Bld LAB ICAWB 1.08-1.30 mmol/L Ionized 1.22 Calcium, WB Result Comment: Please note: This value represents ionized calcium not total calcium. LAB CO2WB 23-32 mmol/L TCO2, Whole 24 Blood LAB GLUWB 65-100 mg/dL High Glucose, 101 Whole Bld LAB BUNWB 10-25 mg/dL BUN, Whole 24 Blood LAB BCRET 0.70-1.40 mg/dL Creatinine,Wh 1.40 ole Bld LAB AGAPWB 0-15 mmol/L Anion Gap, 12 Whole Bld LAB GFRAA eGFR- >60 Amer. LAB GFRNAA . eGFR-All 51 Other Races Result Comment: eGFR (Estimated GFR) Units of measure: mL/min/1.73 meters squared eGFR is derived from the reexpressed MDRD Study equation using the following parameters: serum creatinine, age, gender and race. The creatinine assay has been calibrated to be traceable to IDMS. An eGFR <60 mL/min/1.73m2 for >3 months is consistent with chronic kidney disease. Refer to KDOQI guidelines for clinical interpretation. In patients with unstable renal function, e.g. those with acute kidney injury, the eGFR may not accurately reflect actual GFR. IGOR ABS GR + CBC Collected: 2017 Status: F Source: [place] 8:30 AM [facility] REPOSITORY TYPE CODE TESTS RESULT OUT OF REFERENCE UNITS RANGE LAB WWBC 3.70-11.00 k/uL [place] WBC 4.20 LAB WRBC 4.20-6.00 m/uL Igor RBC 4.22 LAB WHGB 13.0-17.0 g/dL [place] Hemoglobin 14.2 LAB WHCT 39.0-51.0 % Igor Hematocrit 42.9 LAB WMCV 80.0-100.0 fL [place] High MCV 101.7 LAB WMCH 26.0-34.0 pg [place] MCH 33.6 LAB WMCHC 30.5-36.0 g/dL Igor MCHC 33.1 LAB WRDW 11.5-15.0 % Igor RDW 11.9 LAB WPLT 150-400 k/uL [place] Platelet Cnt 184 LAB WMPV 9.0-12.7 fL Igor MPV 9.1 Result Comment: Test performed at: [facility], [address] [place] [address]. LAB ABGRAN 1.45-7.50 k/uL Absol Gran 2.34 Count HEPATIC FUNCTN PANEL Collected: 2017 Status: F Source: [place] 8:30 AM [facility] REPOSITORY TYPE CODE TESTS RESULT OUT OF REFERENCE UNITS RANGE LAB ALB 3.9-4.9 g/dL Albumin 3.9 LAB TBIL 0.2-1.3 mg/dL Bilirubin, Total 0.5 LAB CBIL <0.2 mg/dL Bilirubin,Conjuga <0.2 efra LAB ALKP 36-108 U/L Alkaline Phosphatase 61 LAB AST 14-40 U/L AST 25 LAB ALT 10-54 U/L ALT 19 LAB TP 6.3-8.0 g/dL Low Protein, Total 5.9 Performed By: #### HFP, TSH, CEA #### [facility] [address] [address] TSH Collected: 2017 Status: F Source: [place] 8:30 AM [facility] REPOSITORY TYPE CODE TESTS RESULT OUT OF RANGE REFERENCE UNITS LAB TSH 0.400-5.500 uU/mL TSH 3.900 Performed By: #### HFP, TSH, CEA #### [facility] [address] [id number] CEA Collected: 2017 Status: F Source: [place] 8:30 AM [facility] REPOSITORY TYPE CODE TESTS RESULT OUT OF RANGE REFERENCE UNITS LAB CEA 0.0-2.9 ng/mL High CEA 3.4 Result Comment: Test analyzed by the [employer] DxI method. Performed By: #### HFP, TSH, CEA #### [facility] [address] [address] NURSING PROG Observed: 11/27/2017 Status: COMPLETED Source: [place] 9:03 AM [facility] REPOSITORY HNO ID: [id number] Author: Leeann TrianaRn) RUBÉN Aguirre Service: Nursing Author Type: Registered Nurse Type: Nursing Progress Note Filed: 11/27/2017 9:07 AM Note Text: Patient did not experience a fall prior to discharge. Patient did not experience a burn prior to discharge. Leeann Aguirre RN NURSING PROG Observed: 11/27/2017 Status: COMPLETED Source: [place] 9:00 AM [facility] REPOSITORY HNO ID: [id number] Author: Leeann TrianaRnBonnie Aguirre RN Service: Nursing Author Type: Registered Nurse Type: Nursing Progress Note Filed: 11/27/2017 9:08 AM Note Text: Dr Santamaria to talk to patient. NURSING PROG Observed: 11/27/2017 Status: COMPLETED Source: [place] 8:45 AM [facility] REPOSITORY HNO ID: [id number] Author: Leeann TrianaRn) RUBÉN Aguirre Service: Nursing Author Type: Registered Nurse Type: Nursing Progress Note Filed: 11/27/2017 8:48 AM Note Text: Dressing to go home, no complaints, all safety maintained. NURSING PROG Observed: 11/27/2017 Status: COMPLETED Source: [place] 8:30 AM [facility] REPOSITORY HNO ID: [id number] Author: Leeann TrianaRnBonnie Aguirre RN Service: Nursing Author Type: Registered Nurse Type: Nursing Progress Note Filed: 11/27/2017 8:38 AM Note Text: Awakening, tolerating snack well, no complaints, all safety maintained. PT ED Observed: 11/27/2017 Status: COMPLETED Source: [place] 8:20 AM [facility] REPOSITORY HNO ID: [id number] Author: Leeann TrianaRn) RUBÉN Aguirre Service: Nursing Author Type: Registered Nurse Type: Patient Education Filed: 11/27/2017 8:21 AM Note Text: POST OP LEARNING RESPONSE INSTRUCTION PROVIDED TO: Patient METHOD OF INSTRUCTION: Individual instruction Written instruction - handouts Verbal instruction PATIENT / FAMILY RESPONSE: Information received as demonstrated by interest and questions FOLLOW-UP PLAN: Patient instructed to call with any further issues SUPPLEMENTAL MATERIAL: None REFERRAL (RECOMMENDATION): None Electronically Signed By: Leeann Aguirre RN In Department: AMBULATORY SURGERY NURSING PROG Observed: 11/27/2017 Status: COMPLETED Source: [place] 8:13 AM [facility] REPOSITORY HNO ID: [id number] Author: Leeann Aguirre RN Service: Nursing Author Type: Registered Nurse Type: Nursing Progress Note Filed: 11/27/2017 8:14 AM Note Text: Hung 500 cc of LR due to lower blood pressure. NURSING PROG Observed: 11/27/2017 Status: COMPLETED Source: [place] 8:05 AM [facility] REPOSITORY HNO ID: [id number] Author: Leeann TrianaRn) Timothy RN Service: Nursing Author Type: Registered Nurse Type: Nursing Progress Note Filed: 11/27/2017 8:09 AM Note Text: Pt into Endo recovery room in satisfactory condition. Resting on left side. Pt. sleepy but arousable. Abdomen soft, no complaints, all safety maintained. Will continue to monitor. NURSING PROG Observed: 11/27/2017 Status: COMPLETED Source: [place] 8:03 AM [facility] REPOSITORY HNO ID: [id number] Author: Carmen TrianaRn) RUBÉN Church Service: Nursing Author Type: Registered Nurse Type: Nursing Progress Note Filed: 11/27/2017 8:03 AM Note Text: Patient did not experience a fall within the Intraoperative area. Patient did not experience a burn within the Intraoperative area. Carmen Church RN NURSING PROG Observed: 11/27/2017 Status: COMPLETED Source: [place] 7:37 AM [facility] REPOSITORY HNO ID: [id number] Author: Leeann TrianaRn) RUBÉN Aguirre Service: Nursing Author Type: Registered Nurse Type: Nursing Progress Note Filed: 11/27/2017 8:28 AM Note Text: [facility] PRE-OP NURSING HAND OFF NOTE SBAR Hand off given to Roberta Storey RN. Hand off was communicated verbally and at the patient's bedside and all questions were answered. FALLS/JIN Patient did not experience a fall within the Preoperative area. Patient did not experience a burn within the Preoperative area. Leeann Aguirre RN HISTORY PHYSICAL Observed: 11/27/2017 Status: COMPLETED Source: [place] 7:32 AM [facility] REPOSITORY HNO ID: [id number] Author: Simon Santamaria Service: General Surgery Author Type: Physician Type: HANDP Filed: 11/27/2017 7:33 AM Note Text: HISTORY AND PHYSICAL ? Simon Ayush 1955 ? REFERRING PHYSICIAN: Yohan Ordoñez DO ? CHIEF COMPLAINT: colon consult (hx of colon cancer) ? HPI: The patient is a 61 year old male referred for endoscopy. Simon notes no current colon complaints. He underwent a right hemicolectomy on February 01, 2016 after presenting with a bowel obstruction. 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 He was found to have lymphovascular invasion. One of 31 lymph nodes was positive. He was found to have a bowel obstruction for which she was rehospitalized in May 2016. He was found to have an area with deposits through the mesentery was felt to be an area of potentially fat necrosis, which are his adenocarcinoma and a nodule on the right side was returned as adenocarcinoma. He was apparently hospitalized for 19 days following that admission. ? He is currently on pembrolizumab and is doing well. ? The patient notes no history of upper GI complaints. ? ? The patient is being seen by me today at the request of Dr. Ordoñez for my opinion and advice regarding follow-up colonoscopy. ? ? PAST?MEDICAL?HISTORY No past medical history on file. ? ? PAST?SURGICAL?HISTORY PAST SURGICAL HISTORY Procedure Laterality Date - BOWEL RESECTION HX ? 02/01/2016 - BOWEL RESECTION HX ? 05/23/16 - KIDNEY SURGERY HX ? 05/23/2016 - PAST SURGICAL HISTORY OF ? age 39 ? left abominal skin surgery ? ? ? CURRENT?MEDICATIONS ? Current Outpatient Prescriptions: LOPERAMIDE HCL (IMODIUM A-D ORAL) Take 1 tablet by mouth. After each loose stool prn magnesium oxide (MAG-OX) 400 mg tablet Take 400 mg by mouth twice daily. zolpidem (AMBIEN) 10 mg tab Take 1 tablet by mouth at bedtime as needed. FOR INSOMNIA prochlorperazine (COMPAZINE) 10 mg tablet Take 1 tablet by mouth every 6 hours as needed. ? No current facility-administered medications for this visit. ? ALLERGIES: Review of patient's allergies indicates no known allergies. ? PERSONAL HISTORY: SOCIAL?HISTORY Social History Marital status: Single Spouse name: Years of education: Number of children: ? Social History Main Topics Smoking status: Never Smoker ? Smokeless status: Never Used Alcohol use: No Drug use: No Sexual activity: No ? ? FAMILY HISTORY: FAMILY?HISTORY FAMILY HISTORY Problem Relation Age of Onset - Coronary Artery Disease Other ? ? ? none - Colon Cancer Other ? ? ? none - Prostate Cancer Other ? ? ? none - Diabetes Other ? ? ? none - Thyroid Sister ? - Thyroid Mother ? - Heart Mother ? - Stroke Father ? - Hearing Loss Father ? - Heart Sister ? - Colon Cancer Maternal Grandmother 86 - Colon Cancer Paternal Grandmother 94 - Breast Cancer Maternal Aunt ? - None Paternal Aunt ? ? ? multiple myeloma ? ? REVIEW OF SYMPTOMS: The review of systems data was entered by the nurse and reviewed by me ? Nursing Notes: Darlin Luba RICHARDSON 11/05/2017 8:07 AM Signed REVIEW OF SYSTEMS: General: The patient NOTES fatigue, denies weight loss, denies weight gain, denies feeling hot, and denies feelings of cold. Eyes: The patient denies glaucoma, denies eye injury/surgery, wears glasses or contacts. Ear/Nose/Throat: The patient denies allergies, denies hayfever, denies ear infections, and denies bloody noses. Cardiovascular: The patient denies chest pain, denies heart disease, denies high blood pressure,denies cardiac stent, denies prior heart attack, denies irregular heart beat, denies high cholesterol, denies poor circulation, denies heart failure, other cardiac issues, denies claudication, denies cold feet, denies peripheral arterial stent. Respiratory: The patient denies tuberculosis, denies pneumonia, denies frequent cough, denies pulmonary embolism, denies shortness of breath, and denies coughing up blood. Gastrointestinal: The patient denies difficulty swallowing, denies acid reflux, denies ulcers, denies vomiting, denies jaundice/hepatitis, denies gallbladder problems, denies black or tarry stools, NOTES hemorrhoids, denies bleeding from rectum, denies diverticulitis, denies constipation, NOTES diarrhea, denies loss of stool control, and denies hernias. Kidney/Bladder: The patient denies kidney stones, denies urine infections, and denies bloody urine. Skin: The patient denies a history of skin cancer, denies bleeding/changing moles, and denies a history of skin rash. Neurologic: The patient denies a history of epilepsy/convulsions, denies headaches, denies head/spinal injuries, and denies stroke/TIA. Psychiatric: The patient denies psychiatric medications, denies depression, and denies voices, denies substance abuse. Endocrine: The patient denies thyroid disorders, denies diabetes, and denies hormonal problems. Hematologic: The patient denies a history of bruising, denies bleeding, and denies anemia, denies blood clots. Infections: The patient NOTES a history of measles and mumps, denies rheumatic fever, and denies sexually transmitted diseases. Musculoskeletal: The patient denies back pain/injury, denies back problems, denies sciatica, denies knee/foot trouble, denies arthritis, or denies gout. ? ? When was patient's last Mammogram screening? N/A ? Last Colonoscopy: several years ago ? Darlin Verduzco LPN ? ?? PHYSICAL EXAMINATION: ? General: The patient is 61 year old male, well nourished, well hydrated in no acute distress. The patient is oriented to time, place, and person. ? VITALS: Blood pressure 108/58, pulse 66, weight 84.4 kg (186 lb). Body mass index is 23.25 kg/(m2). ? HEENT: Normal cephalic, ataumatic, pupils are equally round, sclera are anicteric, mucous membranes are moist, oropharynx is clear. Neck has no masses, asymmetry or lymphadenopathy. Thyroid is unremarkable. ? Respiratory: Clear to auscultation and percussion. Normal respiratory excursion and pattern. ? Cardiac: Examination is regular rate and rhythm. ? Abdominal exam: Soft, nontender, with no palpable masses. No hepatosplenomegaly. No palpable hernias. ? Rectal exam: exam deferred ? Extremities: no clubbing, cyanosis or edema. No adenopathy. ? Other: ? LABORATORY VALUES: As Noted ? RADIOLOGIC STUDIES: As Noted ? Assessment IMPRESSION: History of cecal cancer ? PLAN: I plan to perform lower endoscopy. We discussed the risks and benefits of the planned endoscopy. I have informed the patient that complications can occur including failure to complete the endoscopy and perforation. The patient had the opportunity to ask questions concerning the planned endoscopy. My staff has also explained the procedure to the patient in understandable terms and has given the patient printed material concerning the procedure. The patient freely consents to surgery. ? I plan to use golytely bowel preparation for endoscopy ? ? ? Diagnoses: (C18.0) Primary cancer of cecum (HCC) (primary encounter diagnosis) ? My findings have been communicated to Dr. Ordoñez via shared medical record. This note will be forwarded to Dr. Selin Fontanez MD. ?? Return to Clinic: The patient is instructed to follow-up with me after the testing has been completed. ? Simon Santamaria MD PT ED Observed: 11/27/2017 Status: COMPLETED Source: [place] 7:00 AM [facility] REPOSITORY HNO ID: [id number] Author: Leeann (Rn) RUBÉN Aguirre Service: Nursing Author Type: Registered Nurse Type: Patient Education Filed: 11/27/2017 7:08 AM Note Text: PRE OP LEARNING ASSESSMENT PROCEDURE/SURGERY: GI PROCEDURES: Colonoscopy READINESS TO LEARN COGNITIVE ABILITY: Alert and oriented MOTIVATION TO LEARN: Eager Interested FAMILY SUPPORT: Unable to assess - Family not present PATIENT LEARNS BEST BY: Multiple Methods FACTORS AFFECTING LEARNING: None PHYSICAL LIMITATIONS AFFECTING LEARNING: None Electronically Signed By: Leeann Aguirre RN In Department: AMBULATORY SURGERY COMP METABOLIC PANEL Collected: 11/17/2017 Status: F Source: [place] 10:14 AM [facility] REPOSITORY TYPE CODE TESTS RESULT OUT OF REFERENCE UNITS RANGE LAB TP 6.3-8.0 g/dL Low Protein, Total 6.2 LAB ALB 3.9-4.9 g/dL Low Albumin 3.7 LAB CA 8.5-10.2 mg/dL Calcium, Total 8.8 LAB TBIL 0.2-1.3 mg/dL Bilirubin, Total 0.6 LAB ALKP 36-108 U/L Alkaline Phosphatase 68 LAB AST 14-40 U/L AST High 44 LAB GLU 74-99 mg/dL Glucose 89 Result Comment: The [place] [employer] Association (ADA) provides guidance for cutoff values for fasting glucose and random glucose. The ADA defines fasting as no caloric intake for at least 8 hours. Fas ting plasma glucose results between 100 to 125 mg/dL indicate increased risk for diabetes (prediabetes). Fasting plasma glucose results greater than or equal to 126 mg/dL meet the criteria for diagnosis of diabetes. In the absence of unequivocal hyperglycemia, results should be confirmed by repeat testing. In a patient with classic symptoms of hyperglycemia or hyperglycemic crisis, random plasma glucose results greater than or equal to 200 mg/dL meet the criteria for diagnosis of diabetes. Reference: Standards of Medical Care in Diabetes 2016, [place] [employer] Association. Diabetes Care. 2016.39(Suppl 1). LAB BUN 9-24 mg/dL BUN 23 LAB CRET 0.73-1.22 mg/dL Creatinine High 1.47 LAB NA 136-144 mmol/L Sodium 140 LAB K 3.7-5.1 mmol/L Potassium 4.9 LAB CL 97-105 mmol/L Chloride 105 LAB CO2 22-30 mmol/L CO2 23 LAB AGAP 9-18 mmol/L Anion Gap 12 LAB ALT 10-54 U/L ALT 22 LAB GFRAA eGFR- Amer. 59 LAB GFRNAA . eGFR-All Other Races 49 Result Comment: eGFR (Estimated GFR) Units of measure: mL/min/1.73 meters squared eGFR is derived from the reexpressed MDRD Study equation using the following parameters: serum creatinine, age, gender and race. The creatinine assay has been calibrated to be traceable to IDMS. An eGFR <60 mL/min/1.73m2 for >3 months is consistent with chronic kidney disease. Refer to KDOQI guidelines for clinical interpretation. In patients with unstable renal function, e.g. those with acute kidney injury, the eGFR may not accurately reflect actual GFR. Performed By: #### CMP, CEA #### [facility] [address] [place] [id number] CEA Collected: 11/17/2017 Status: F Source: [place] 10:14 AM [facility] REPOSITORY TYPE CODE TESTS RESULT OUT OF RANGE REFERENCE UNITS LAB CEA 0.0-2.9 ng/mL High CEA 4.0 Result Comment: Test analyzed by the Dina DxI method. Performed By: #### CMP, CEA #### [facility] [address] [place] [id number] [facility] ABS GR + CBC Collected: 11/17/2017 Status: F Source: [place] 10:13 AM [facility] REPOSITORY TYPE CODE TESTS RESULT OUT OF REFERENCE UNITS RANGE LAB WWBC 3.70-11.00 k/uL [place] WBC 4.60 LAB WRBC 4.20-6.00 m/uL [facility] RBC 4.22 LAB WHGB 13.0-17.0 g/dL [place] Hemoglobin 14.3 LAB WHCT 39.0-51.0 % [facility] Hematocrit 41.3 LAB WMCV 80.0-100.0 fL [facility] MCV 97.9 LAB WMCH 26.0-34.0 pg [place] MCH 33.9 LAB WMCHC 30.5-36.0 g/dL [facility] MCHC 34.6 LAB WRDW 11.5-15.0 % [facility] RDW 11.9 LAB WPLT 150-400 k/uL [place] Platelet Cnt 201 LAB WMPV 9.0-12.7 fL [facility] MPV 9.4 Result Comment: Test performed at: [facility], [address] [place] [address]. LAB ABGRAN 1.45-7.50 k/uL Absol Gran 2.91 Count PROGRESS Observed: 11/05/2017 Status: COMPLETED Source: [place] 8:43 AM [facility] REPOSITORY HNO ID: [id number] Author: Simon Santamaria Service: (none) Author Type: Physician Type: Progress Notes Filed: 11/05/2017 7:15 PM Note Text: HISTORY AND PHYSICAL Simon Ayush 1955 REFERRING PHYSICIAN: Yohan Ordoñez DO CHIEF COMPLAINT: colon consult (hx of colon cancer) HPI: The patient is a 61 year old male referred for endoscopy. Simon notes no current colon complaints. He underwent a right hemicolectomy on February 01, 2016 after presenting with a bowel obstruction. 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 He was found to have lymphovascular invasion. One of 31 lymph nodes was positive. He was found to have a bowel obstruction for which she was rehospitalized in May 2016. He was found to have an area with deposits through the mesentery was felt to be an area of potentially fat necrosis, which are his adenocarcinoma and a nodule on the right side was returned as adenocarcinoma. He was apparently hospitalized for 19 days following that admission. He is currently on pembrolizumab and is doing well. The patient notes no history of upper GI complaints. The patient is being seen by me today at the request of Dr. Ordoñez for my opinion and advice regarding follow-up colonoscopy. No past medical history on file. PAST SURGICAL HISTORY Procedure Laterality Date - BOWEL RESECTION HX 02/01/2016 - BOWEL RESECTION HX 05/23/16 - KIDNEY SURGERY HX 05/23/2016 - PAST SURGICAL HISTORY OF age 39 left abominal skin surgery Current Outpatient Prescriptions: LOPERAMIDE HCL (IMODIUM A-D ORAL) Take 1 tablet by mouth. After each loose stool prn magnesium oxide (MAG-OX) 400 mg tablet Take 400 mg by mouth twice daily. zolpidem (AMBIEN) 10 mg tab Take 1 tablet by mouth at bedtime as needed. FOR INSOMNIA prochlorperazine (COMPAZINE) 10 mg tablet Take 1 tablet by mouth every 6 hours as needed. No current facility-administered medications for this visit. ALLERGIES: Review of patient's allergies indicates no known allergies. PERSONAL HISTORY: Social History Marital status: Single Spouse name: Years of education: Number of children: Social History Main Topics Smoking status: Never Smoker Smokeless status: Never Used Alcohol use: No Drug use: No Sexual activity: No FAMILY HISTORY: FAMILY HISTORY Problem Relation Age of Onset - Coronary Artery Disease Other none - Colon Cancer Other none - Prostate Cancer Other none - Diabetes Other none - Thyroid Sister - Thyroid Mother - Heart Mother - Stroke Father - Hearing Loss Father - Heart Sister - Colon Cancer Maternal Grandmother 86 - Colon Cancer Paternal Grandmother 94 - Breast Cancer Maternal Aunt - None Paternal Aunt multiple myeloma REVIEW OF SYMPTOMS: The review of systems data was entered by the nurse and reviewed by tx Nursing Notes: Darlin Verduzco LPN 11/05/2017 8:07 AM Signed REVIEW OF SYSTEMS: General: The patient NOTES fatigue, denies weight loss, denies weight gain, denies feeling hot, and denies feelings of cold. Eyes: The patient denies glaucoma, denies eye injury/surgery, wears glasses or contacts. Ear/Nose/Throat: The patient denies allergies, denies hayfever, denies ear infections, and denies bloody noses. Cardiovascular: The patient denies chest pain, denies heart disease, denies high blood pressure,denies cardiac stent, denies prior heart attack, denies irregular heart beat, denies high cholesterol, denies poor circulation, denies heart failure, other cardiac issues, denies claudication, denies cold feet, denies peripheral arterial stent. Respiratory: The patient denies tuberculosis, denies pneumonia, denies frequent cough, denies pulmonary embolism, denies shortness of breath, and denies coughing up blood. Gastrointestinal: The patient denies difficulty swallowing, denies acid reflux, denies ulcers, denies vomiting, denies jaundice/hepatitis, denies gallbladder problems, denies black or tarry stools, NOTES hemorrhoids, denies bleeding from rectum, denies diverticulitis, denies constipation, NOTES diarrhea, denies loss of stool control, and denies hernias. Kidney/Bladder: The patient denies kidney stones, denies urine infections, and denies bloody urine. Skin: The patient denies a history of skin cancer, denies bleeding/changing moles, and denies a history of skin rash. Neurologic: The patient denies a history of epilepsy/convulsions, denies headaches, denies head/spinal injuries, and denies stroke/TIA. Psychiatric: The patient denies psychiatric medications, denies depression, and denies voices, denies substance abuse. Endocrine: The patient denies thyroid disorders, denies diabetes, and denies hormonal problems. Hematologic: The patient denies a history of bruising, denies bleeding, and denies anemia, denies blood clots. Infections: The patient NOTES a history of measles and mumps, denies rheumatic fever, and denies sexually transmitted diseases. Musculoskeletal: The patient denies back pain/injury, denies back problems, denies sciatica, denies knee/foot trouble, denies arthritis, or denies gout. When was patient's last Mammogram screening? N/A Last Colonoscopy: several years ago Darlin Verduzco LPN PHYSICAL EXAMINATION: General: The patient is 61 year old male, well nourished, well hydrated in no acute distress. The patient is oriented to time, place, and person. VITALS: Blood pressure 108/58, pulse 66, weight 84.4 kg (186 lb). Body mass index is 23.25 kg/(m2). HEENT: Normal cephalic, ataumatic, pupils are equally round, sclera are anicteric, mucous membranes are moist, oropharynx is clear. Neck has no masses, asymmetry or lymphadenopathy. Thyroid is unremarkable. Respiratory: Clear to auscultation and percussion. Normal respiratory excursion and pattern. Cardiac: Examination is regular rate and rhythm. Abdominal exam: Soft, nontender, with no palpable masses. No hepatosplenomegaly. No palpable hernias. Rectal exam: exam deferred Extremities: no clubbing, cyanosis or edema. No adenopathy. Other: LABORATORY VALUES: As Noted RADIOLOGIC STUDIES: As Noted Assessment IMPRESSION: History of cecal cancer PLAN: I plan to perform lower endoscopy. We discussed the risks and benefits of the planned endoscopy. I have informed the patient that complications can occur including failure to complete the endoscopy and perforation. The patient had the opportunity to ask questions concerning the planned endoscopy. My staff has also explained the procedure to the patient in understandable terms and has given the patient printed material concerning the procedure. The patient freely consents to surgery. I plan to use golytely bowel preparation for endoscopy Diagnoses: (C18.0) Primary cancer of cecum (HCC) (primary encounter diagnosis) My findings have been communicated to Dr. Ordoñez via shared medical record. This note will be forwarded to Dr. Selin Fontanez MD. Return to Clinic: The patient is instructed to follow-up with me after the testing has been completed. Simon Santamaria MD [facility] Observed: 11/05/2017 Status: COMPLETED Source: [place] 12:00 AM [facility] REPOSITORY Patient:Simon Peacock MRN: <[id number]> Height:6' 3(1.905 m) Weight:184 lb (83.462 kg) Outpatient Medications as of 11/27/17: oseltamivir (TAMIFLU) 75 mg capsule LOPERAMIDE HCL (IMODIUM A-D ORAL) magnesium oxide (MAG-OX) 400 mg tablet zolpidem (AMBIEN) 10 mg tab prochlorperazine (COMPAZINE) 10 mg tablet Admission/Clinic Administered Medications as of 11/27/17: lactated ringers infusion heparin 100 unit/mL 500 Units injection Problem List: 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 Her PCP stated he should try calling Dr. Ordoñez to get a prescription of Tamiflu as a precaution. Please advise. Patient also questioning if coloscopy and CT scans scheduled on 11/27 and 12/03 will need rescheduled. Patient uses pharmacy on file. Yohan Ordoñez DO 11/17/2017 12:46 PM Signed Yes, he should take Tamiflu for prevention. The dose is 1 capsule daily for 10 days. He can keep colonoscopy and CT scan scheduled as they are. DO Kristal Casetllano LPN, DYLAN 11/17/2017 12:56 PM Signed Pt. Notified rx for tamiflu sent to [facility]. Take is directed, keep appts. For colonoscopy and ct as scheduled. Pt. Voiced understanding Kristal Fernandez LPN Progress Notes ([facility]): Yahaira Cosme, RN, RN 11/17/2017 11:16 AM Signed Pt here today for Keytruda and labs were drawn. The CBC is very stable and not needed for Keytruda. He asked if he will need labs again prior to next vs or OV? Yohan Ordoñez DO 11/17/2017 12:44 PM Signed We can just do CBC/CMP with each OV. DO Kristal Castellano LPN, DYLAN 11/17/2017 12:57 PM Signed Pt. Notified Kristal Fernandez LPN PROGRESS Observed: 10/26/2017 Status: COMPLETED Source: [place] 9:20 AM [facility] REPOSITORY O ID: [id number] Author: Yohan Ordoñez Service: (none) Author Type: Physician Type: Progress Notes Filed: 10/26/2017 10:19 AM Note Text: Diagnosis: 1) Metastatic adenocarcinoma of the colon. 2) Atrial fibrillation secondary to hypomagnesemia. HPI: The patient is a 61 yo male who had a past medical history significant for mild chronic kidney disease. The patient underwent a right sided hemicolectomy on 02/01/2016 after presenting with symptoms concerning for possible bowel obstruction. The pathology demonstrated invasive moderately differentiated adenocarcinoma extending through the bowel wall of the cecum with perforation. Lymphovascular invasion was also observed focally. One of 31 examined lymph nodes was positive for disease. Resection margins were negative. Final pathologic stage was pT4a pN1a stage IIIB. The patient then received adjuvant chemotherapy consisting of FOLFOX which was started on 03/04/2016. Following 6 cycles of therapy, the patient was hospitalized for signs and symptoms of bowel obstruction. During that hospitalization he underwent exploratory laparotomy and was found to have metastatic deposits of disease throughout the mesentery. The pathology report from 05/23/2016 demonstrated within the pathologic specimens there was an area of fat necrosis showing moderately differentiated adenocarcinoma. A right psoas nodule excision demonstrating moderately differentiated adenocarcinoma. Omentum resected in its entirety was negative for malignancy. Right kidney and right ureter, status post nephroureterectomy showed an unremarkable kidney with marked periureteral fibrosis and foci of hemorrhage negative for malignancy. A small bowel nodule was excised and it demonstrated moderately differentiated adenocarcinoma and a resected section of sigmoid colon showing a portion of colon with a minute focus of atypical cells in the serosal surface suspect for carcinoma. He was in the hospital for 19 days. He was discharged and had a follow-up appointment with Dr. Elias on 06/09. FOLFIRI was discussed and recommended. Transferred care here to be closer to home. Previous therapy: 1) FOLFOX x6 cycles. 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 2) FOLFIRI with panitumumab. PD 03/2017. Current therapy: 1) Pembrolizumab. Presents for ongoing oncologic management. Interim history: He has no complaints and no subjective side effects from therapy. His appetite is normal and his energy levels are normal. He has no symptoms of stomatitis, dysphagia, odynophagia, reflux, nausea or diarrhea. His bowels are working regularly and normally. No symptoms of GI bleeding. This includes hematochezia and melena. No episodes of jaundice. No abdominal pain, bloating or distention. No rash. PMH, medications and allergies as below personally reviewed by me today. Any changes documented in appropriate section. ROS: Constitutional: Denies episodes of night sweats. Neuro: Denies BECERRIL, vertigo, dizziness and imbalance. HEENT: No recent change in voice, vision or hearing. Resp: Denies cough, wheeze and hemoptysis. Denies shortness of breath at rest. Denies HOANG. CVS: Denies exertional chest pain, PND, orthopnea and LE edema. GI: Denies dysgeusia. Denies symptoms of stomatitis. Denies dysphagia and odynophagia. Denies reflux. : Denies dysuria or gross hematuria. No symptoms of bladder outlet obstruction. Endo: Denies hot flashes. Denies polyuria and polydipsia. Denies heat and cold intolerance. Musculoskeletal: Denies bone, back, joint and muscular pain. Derm: Denies diffuse pruritis. Heme: Denies unusual bleeding and unexplained bruising. Psych: Normal mood. PHYSICAL EXAM: Vitals: Blood pressure 105/60, pulse 60, temperature 36.6 ?C (97.8 ?F), temperature source Oral, weight 83.7 kg (184 lb 8 oz). Well-appearing and in no acute distress. EYES: Sclerae are anicteric bilaterally. NECK: Supple. No enlargement of thyroid. LYMPHATIC: There is no palpable cervical, supraclavicular, axillary adenopathy. RESPIRATORY: Inspiratory breath sounds are of normal intensity in all [place]. No rales, wheezes or rhonchi. Expiratory phase is normal. CARDIOVASCULAR: Rhythm is regular. Normal intensity S1/S2. There is no gallop or murmur. ABD: The abdomen is nondistended. There is no organomegaly or mass appreciated. No tenderness. Extremities: No swelling or edema. SKIN: The generalized hyperpigmentation is stable. No jaundice. 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 No focal motor weakness. MUSCULOSKELETAL: No joint swelling or tenderness. Mild muscle wasting. ASSESSMENT/PLAN: (C18.0) Primary cancer of cecum (HCC) (primary encounter diagnosis) (C18.9, C77.2) Colon cancer metastasized to intra-abdominal lymph node (HCC) Assessment: -KPS is 90%. -Biopsy proven metastases to psoas and mesentery. -dMMR. -He is tolerating pembrolizumab for a well with no symptomatic side effect. -We discussed today that is reasonable for him to get a colonoscopy done. He originally presented with obstruction and I don't think his had a full colonoscopy since then. Plan: -Continue pembrolizumab. -CT scans in November. -Referral to general surgery for colonoscopy. DO IGOR Castellano ABS GR + CBC Collected: 10/26/2017 Status: F Source: [place] 9:15 AM [facility] REPOSITORY TYPE CODE TESTS RESULT OUT OF REFERENCE UNITS RANGE LAB WWBC 3.70-11.00 k/uL [place] WBC 3.94 LAB WRBC 4.20-6.00 m/uL [place] RBC 4.43 LAB WHGB 13.0-17.0 g/dL [facility] Hemoglobin 14.7 LAB WHCT 39.0-51.0 % [facility] Hematocrit 44.3 LAB WMCV 80.0-100.0 fL [facility] MCV 100.0 LAB WMCH 26.0-34.0 pg [place] MCH 33.2 LAB WMCHC 30.5-36.0 g/dL [facility] MCHC 33.2 LAB WRDW 11.5-15.0 % [place] RDW 12.0 LAB WPLT 150-400 k/uL [facility] Platelet Cnt 163 LAB WMPV 9.0-12.7 fL [place] MPV 9.4 Result Comment: Test performed at: [facility] [place], [address] [place] [address]. LAB ABGRAN 1.45-7.50 k/uL Absol Gran 2.41 Count IGOR ISTAT BMP Collected: 10/26/2017 Status: F Source: [place] 9:15 AM [facility] REPOSITORY TYPE CODE TESTS RESULT OUT OF REFERENCE UNITS RANGE LAB NAWB 135-146 mmol/L Sodium, Whole 141 Bld LAB K1WB 3.5-5.0 mmol/L Potassium,Who 4.9 le Bld LAB CLWB 98-110 mmol/L Chloride, 106 Whole Bld LAB ICAWB 1.08-1.30 mmol/L Ionized 1.22 Calcium, WB Result Comment: Please note: This value represents ionized calcium not total calcium. LAB CO2WB 23-32 mmol/L TCO2, Whole 26 Blood LAB GLUWB 65-100 mg/dL High Glucose, 105 Whole Bld LAB BUNWB 10-25 mg/dL High BUN, Whole 27 Blood LAB BCRET 0.70-1.40 mg/dL High Creatinine,Wh 1.50 ole Bld LAB AGAPWB 0-15 mmol/L Anion Gap, 9 Whole Bld LAB GFRAA eGFR- 57 Amer. LAB GFRNAA . eGFR-All 47 Other Races Result Comment: eGFR (Estimated GFR) Units of measure: mL/min/1.73 meters squared eGFR is derived from the reexpressed MDRD Study equation using the following parameters: serum creatinine, age, gender and race. The creatinine assay has been calibrated to be traceable to IDMS. An eGFR <60 mL/min/1.73m2 for >3 months is consistent with chronic kidney disease. Refer to KDOQI guidelines for clinical interpretation. In patients with unstable renal function, e.g. those with acute kidney injury, the eGFR may not accurately reflect actual GFR. HEPATIC FUNCTN PANEL Collected: 10/26/2017 Status: F Source: [place] 9:15 AM [facility] REPOSITORY TYPE CODE TESTS RESULT OUT OF REFERENCE UNITS RANGE LAB ALB 3.9-4.9 g/dL Albumin 4.1 LAB TBIL 0.2-1.3 mg/dL Bilirubin, Total 0.6 LAB CBIL <0.2 mg/dL Bilirubin,Conjuga <0.2 efra LAB ALKP 36-108 U/L Alkaline Phosphatase 67 LAB AST 14-40 U/L AST 19 LAB ALT 10-54 U/L ALT 16 LAB TP 6.3-8.0 g/dL Protein, Total 6.7 Performed By: #### HFP, TSH, CEA #### [facility] [address] [address] TSH Collected: 10/26/2017 Status: F Source: SUNDANCE 9:15 AM [facility] REPOSITORY TYPE CODE TESTS RESULT OUT OF RANGE REFERENCE UNITS LAB TSH 0.400-5.500 uU/mL TSH 5.140 Performed By: #### HFP, TSH, CEA #### [facility] [address] [address] CEA Collected: 10/26/2017 Status: F Source: SUNDANCE 9:15 AM [facility] REPOSITORY TYPE CODE TESTS RESULT OUT OF RANGE REFERENCE UNITS LAB CEA 0.0-2.9 ng/mL High CEA 4.2 Result Comment: Test analyzed by the [employer] DxI method. Performed By: #### HFP, TSH, CEA #### [facility] [address] [address] CNOVSP Observed: 10/26/2017 Status: COMPLETED Source: SUNDANCE 9:10 AM [facility] REPOSITORY Visit (SP) Office ([place]) SIMON PEACOCK ([id number]) 1955 M Date Time Provider Department 10/26/17 9:10 AM YOHAN ORDOÑEZ During your visit today, we recorded the following information about you: Temperature Pulse Blood pressure Weight 97.8 degrees 60/minute 105/60 83.7 kg Yohan Ordoñez DO 10/26/2017 10:19 AM Signed Diagnosis: 1) Metastatic adenocarcinoma of the colon. 2) Atrial fibrillation secondary to hypomagnesemia. HPI: The patient is a 61 yo male who had a past medical history significant for mild chronic kidney disease. The patient underwent a right sided hemicolectomy on 02/01/2016 after presenting with symptoms concerning for possible bowel obstruction. The pathology demonstrated invasive moderately differentiated adenocarcinoma extending through the bowel wall of the cecum with perforation. Lymphovascular invasion was also observed focally. One of 31 examined lymph nodes was positive for disease. Resection margins were negative. Final pathologic stage was pT4a pN1a stage IIIB. The patient then received adjuvant chemotherapy consisting of FOLFOX which was started on 03/04/2016. Following 6 cycles of therapy, the patient was hospitalized for signs and symptoms of bowel obstruction. During that hospitalization he underwent exploratory laparotomy and was found to have metastatic deposits of disease throughout the mesentery. The pathology report from 05/23/2016 demonstrated within the pathologic specimens there was an area of ANDquot;fat necrosisANDquot; showing moderately differentiated adenocarcinoma. A right psoas nodule excision demonstrating moderately differentiated adenocarcinoma. Omentum resected in its entirety was negative for malignancy. Right kidney and right ureter, status post nephroureterectomy showed an unremarkable kidney with marked periureteral fibrosis and foci of hemorrhage negative for malignancy. A small bowel nodule was excised and it demonstrated moderately differentiated adenocarcinoma and a resected section of sigmoid colon showing a portion of colon with a minute focus of atypical cells in the serosal surface suspect for carcinoma. He was in the hospital for 19 days. He was discharged and had a follow-up appointment with Dr. Elias on 9/19. FOLFIRI was discussed and recommended. Transferred care here to be closer to home. Previous therapy: 1) FOLFOX x6 cycles. 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 2) FOLFIRI with panitumumab. PD 03/2017. Current therapy: 1) Pembrolizumab. Presents for ongoing oncologic management. Interim history: He has no complaints and no subjective side effects from therapy. His appetite is normal and his energy levels are normal. He has no symptoms of stomatitis, dysphagia, odynophagia, reflux, nausea or diarrhea. His bowels are working regularly and normally. No symptoms of GI bleeding. This includes hematochezia and melena. No episodes of jaundice. No abdominal pain, bloating or distention. No rash. PMH, medications and allergies as below personally reviewed by me today. Any changes documented in appropriate section. ROS: Constitutional: Denies episodes of night sweats. Neuro: Denies BECERRIL, vertigo, dizziness and imbalance. HEENT: No recent change in voice, vision or hearing. Resp: Denies cough, wheeze and hemoptysis. Denies shortness of breath at rest. Denies HOANG. CVS: Denies exertional chest pain, PND, orthopnea and LE edema. GI: Denies dysgeusia. Denies symptoms of stomatitis. Denies dysphagia and odynophagia. Denies reflux. : Denies dysuria or gross hematuria. No symptoms of bladder outlet obstruction. Endo: Denies hot flashes. Denies polyuria and polydipsia. Denies heat and cold intolerance. Musculoskeletal: Denies bone, back, joint and muscular pain. Derm: Denies diffuse pruritis. Heme: Denies unusual bleeding and unexplained bruising. Psych: Normal mood. PHYSICAL EXAM: Vitals: Blood pressure 105/60, pulse 60, temperature 36.6 ?C (97.8 ?F), temperature source Oral, weight 83.7 kg (184 lb 8 oz). Well-appearing and in no acute distress. EYES: Sclerae are anicteric bilaterally. NECK: Supple. No enlargement of thyroid. LYMPHATIC: There is no palpable cervical, supraclavicular, axillary adenopathy. RESPIRATORY: Inspiratory breath sounds are of normal intensity in all [place]. No rales, wheezes or rhonchi. Expiratory phase is normal. CARDIOVASCULAR: Rhythm is regular. Normal intensity S1/S2. There is no gallop or murmur. ABD: The abdomen is nondistended. There is no organomegaly or mass appreciated. No tenderness. Extremities: No swelling or edema. SKIN: The generalized hyperpigmentation is stable. No jaundice. 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 No focal motor weakness. MUSCULOSKELETAL: No joint swelling or tenderness. Mild muscle wasting. ASSESSMENT/PLAN: (C18.0) Primary cancer of cecum (HCC) (primary encounter diagnosis) (C18.9, C77.2) Colon cancer metastasized to intra-abdominal lymph node (HCC) Assessment: -KPS is 90%. -Biopsy proven metastases to psoas and mesentery. -dMMR. -He is tolerating pembrolizumab for a well with no symptomatic side effect. -We discussed today that is reasonable for him to get a colonoscopy done. He originally presented with obstruction and I don't think his had a full colonoscopy since then. Plan: -Continue pembrolizumab. -CT scans in November. -Referral to general surgery for colonoscopy. 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 Discontinue saline lock post exam. If Pt. has a central line or IVAD, may access for administration according to line specific nursing protocol. Once exam is complete flush line and de- access according to line specific nursing protocol in the CT contrast administration guidelines link.Disp: 1 EachRfl: 0 enteric contrast (radiology procedure)For CT CHESTABD/PEL W IVCON Routine order Administer, As Directed One Time Only, via Oral, Rectal, both Oral and Rectal, Enteric Tube, Stoma or Indwelling Catheter, Enteric Contrast as designated per enteric contrast guidelinesDisp: 1 EachRfl: 0 Follow-up and Disposition History Recorded Prescriptions as of 10/26/2017 Sig: IMODIUM A-D ORAL Take 1 tablet by mouth. After* MAGNESIUM OXIDE 400 MG TABLET Take 400 mg by mouth twice da* ZOLPIDEM 10 MG TABLET Take 1 tablet by mouth at bed* PROCHLORPERAZINE MALEATE 10 M* Take 1 tablet by mouth every * IV CONTRAST (RADIOLOGY PROCED* CT Chest ABD/PEL-Inject, intr* ENTERIC CONTRAST (RADIOLOGY P* For CT CHESTABD/PEL W IVCON R* More... Problem List As Of Date 10/26/2017 Noted Resolved Ceruminosis [H61.20] INVALID FOR*09/02/2016 Priority: A More... 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] INVALID FOR* Encounter Status:Closed by YOHAN ORDOÑEZ DO on 10/26/17 ALLERGIES ALLERGIES DATE TYPE / CODE NAME / CODE REACTION SEVERITY SOURCE 09/03/2018 Drug No Known Unknown [facility] Allergy/416 Allergies/W37633 Hospital 295230(SNOM 0388(RXNORM) Repository ED CT) Drug NO KNOWN [facility] Class/51798 ALLERGIES [place] 1003(SNOMED Repository CT) ENCOUNTERS ENCOUNTERS ADMIT/DISCHARGE ACCOUNT ADMITTING ENCOUNTER LOCATION SOURCE NUMBER CLASS 10/07/2018 [id number] Ambulatory [facility] ing:MTRAD Repository 10/05/2018/10/06/19 [id number] Ambulatory [address] Repository 09/29/2018/09/30/19 [id number] Ambulatory [address] Repository 09/03/2018/09/27/19 [id number] Agyepong, Inpatient [facility] ing:JS4Kkxy: Repository GJ082Qth: 1 09/03/2018 [id number] Agyepong, Ambulatory [facility]:Alyse [facility] [place] Repository 09/03/2018 [id number] Agyepong, Ambulatory [facility] Repository 09/03/2018 [id number] Agyepong, Ambulatory [facility] Repository 09/03/2018 [id number] Agyepong, Ambulatory [facility] Repository 09/03/2018 [id number] Agyepong, Ambulatory [facility] Repository 09/03/2018 [id number] Agyepong, Ambulatory [facility] Repository 09/03/2018 [id number] Agyepong, Ambulatory [facility] Repository 09/03/2018 [id number] Agyepong, Ambulatory [facility] Repository 09/03/2018 [id number] Agyepong, Ambulatory [facility] Repository 09/03/2018 [id number] Agyepong, Ambulatory [facility] Repository 09/03/2018 [id number] Agyepong, Ambulatory [facility] Repository 09/03/2018 [id number] Agyepong, Ambulatory [facility] Repository 09/03/2018 [id number] Agyepong, Ambulatory [facility]MS[facility]:Alyse [facility]Cr [facility] Repository 09/03/2018 [id number] Agyepong, Ambulatory [facility] Repository 09/03/2018 [id number] Agyepong, Ambulatory [facility] Repository 09/03/2018 [id number] Agyepong, Ambulatory [facility] Repository 09/03/2018 [id number] Agyepong, Ambulatory [facility] Repository 09/03/2018 [id number] Agyepong, Ambulatory [facility] Repository 09/03/2018 [id number] Agyepong, Ambulatory [facility] Repository 09/03/2018 [id number] Agyepong, Ambulatory [facility] Repository 09/03/2018 [id number] Agyepong, Ambulatory [facility] Repository 09/03/2018 [id number] Agyepong, Ambulatory [facility] Repository 09/03/2018 [id number] Agyepong, Ambulatory [facility] Repository 09/03/2018 [id number] Agyepong, Ambulatory [facility] Repository 09/03/2018 [id number] Agyepong, Ambulatory [facility] Repository 09/03/2018/09/27/19 [id number] Ambulatory BMSBuilding:Twila Ramey [facility] Repository 08/18/2018/08/19/20 [id number] Ambulatory [address] Repository 08/17/2018/08/17/20 [id number] Ambulatory [address] Repository 08/17/2018/08/17/20 [id number] Ambulatory [address] Repository 08/17/2018/08/19/20 [id number] Ambulatory [facility] [place] Repository 08/17/2018/08/18/20 [id number] Ambulatory [facility] [place] Repository 07/28/2018/07/28/20 [id number] Ambulatory [facility] [place] Repository 07/28/2018/07/29/20 [id number] Ambulatory [facility] [place] Repository 07/28/2018/07/28/20 [id number] Ambulatory [facility] [place] Repository 07/07/2018/07/08/20 [id number] Ambulatory [facility] [place] Repository 07/06/2018/07/06/20 [id number] Ambulatory [facility] [place] Repository 07/06/2018/07/07/20 [id number] Ambulatory [facility] [place] Repository 07/06/2018/07/07/20 [id number] Ambulatory [facility] [place] Repository 06/16/2018/06/17/20 [id number] Ambulatory [facility] [place] Repository 06/16/2018/06/17/20 [id number] Ambulatory [facility] [place] Repository 06/16/2018/06/16/20 [id number] Ambulatory [facility] [place] Repository 05/26/2018/05/26/20 [id number] Ambulatory [facility] [place] Repository 05/26/2018/05/27/20 [id number] Ambulatory [facility] [place] Repository 05/25/2018/05/25/20 [id number] Ambulatory [facility] [place] Repository 05/25/2018/05/26/20 [id number] Ambulatory [facility] [place] Repository 05/25/2018/05/26/20 [id number] Ambulatory [facility] [place] Repository 05/04/2018/05/05/20 [id number] Ambulatory [facility] [place] Repository 05/04/2018/05/04/20 [id number] Ambulatory [facility] [place] Repository 05/04/2018/05/04/20 [id number] Ambulatory [facility] [place] Repository 04/13/2018/04/14/20 [id number] Ambulatory [facility] [place] Repository 04/12/2018/04/13/20 [id number] Ambulatory [facility] [place] Repository 04/12/2018/04/12/20 [id number] Ambulatory [facility] [place] Repository 04/12/2018/04/12/20 [id number] Ambulatory [facility] [place] Repository 04/06/2018/04/08/20 [id number] Ambulatory [facility] [place] Repository 04/06/2018/04/07/20 [id number] Ambulatory [facility] [place] Repository 04/06/2018/04/06/20 [id number] Ambulatory [facility] [place] Repository 04/06/2018 [id number] Ambulatory [facility] [place] Repository 04/06/2018 [id number] Ambulatory [facility] [place] Repository 03/26/2018/03/31/20 [id number] Ambulatory [facility] [place] Repository 03/26/2018/03/29/20 [id number] Ambulatory [facility] [place] Repository 03/26/2018/03/26/20 [id number] Ambulatory [facility] [place] Repository 03/22/2018/03/23/20 [id number] Ambulatory [facility] [place] Repository 03/19/2018/03/19/20 [id number] Ambulatory [facility] [place] Repository 03/19/2018/03/22/20 [id number] Ambulatory [facility] [place] Repository 03/19/2018/03/19/20 [id number] Ambulatory [facility] [place] Repository 03/02/2018/03/03/20 [id number] Ambulatory [facility] [place] Repository 03/01/2018 [id number] Ambulatory [facility] [place] Repository 03/01/2018/03/02/20 [id number] Ambulatory [facility] [place] Repository 03/01/2018/03/01/20 [id number] Ambulatory [facility] [place] Repository 02/17/2018/02/19/20 [id number] Ambulatory [facility] [place] Repository 02/17/2018/02/23/20 [id number] Ambulatory [facility] [place] Repository 02/09/2018/02/11/20 [id number] Ambulatory [facility] [place] Repository 02/08/2018 [id number] Ambulatory [facility] [place] Repository 02/08/2018/02/10/20 [id number] Ambulatory [facility] [place] Repository 02/08/2018/02/09/20 [id number] Ambulatory [facility] [place] Repository 02/03/2018/02/06/20 [id number] Ambulatory [facility] [place] Repository 02/02/2018/02/05/20 [id number] Ambulatory [facility] [place] Repository 01/19/2018/01/21/20 [id number] Ambulatory [facility] [place] Repository 01/18/2018 [id number] [facility]ulatory [facility] [place] Repository 01/18/2018/01/20/20 [id number] [facility]ulatory [facility] [address] [place] [address] [place] Repository 01/18/2018/01/19/20 [id number] Ambulatory [address] [place] Repository 01/13/2018/01/14/20 [id number] Ambulatory [address] [place] Repository 01/13/2018/01/19/20 [id number] Ambulatory [address] [place] Repository 12/30/2017/01/01/20 [id number] Ambulatory [address] [place] Repository 12/29/2017/12/30/19 [id number] Ambulatory [address] [place] Repository 12/29/2017/12/31/19 [id number] Ambulatory [address] [place] Repository 12/08/2017/12/10/19 [id number] Ambulatory [address] [place] Repository 12/07/2017/12/09/19 [id number] Ambulatory [address] [place] Repository 12/03/2017/12/05/19 [id number] Ambulatory [address] [place] Repository 12/03/2017/12/05/19 [id number] Ambulatory [address] [place] Repository 2017 [id number] Ambulatory [facility] [place] Repository 12/03/2017/12/04/19 [id number] Ambulatory [address] [place] Repository 12/03/2017/12/04/19 [id number] Ambulatory [address] [place] Repository 11/27/2017/11/28/19 [id number] HINA, Ambulatory [facility] [place] Repository 11/17/2017/11/18/19 [id number] Ambulatory [address] [place] Repository 11/17/2017 [id number] Ambulatory [facility] [place] Repository 11/17/2017/11/17/19 [id number] Ambulatory [address] Repository 11/05/2017/11/05/19 [id number] Ambulatory [address] Repository 10/27/2017/10/28/19 [id number] Ambulatory [address] Repository 10/26/2017 [id number] Ambulatory [facility] Repository 10/26/2017/10/27/19 [id number] Ambulatory [address] Repository 10/26/2017/10/26/19 [id number] Ambulatory [address] Repository PAYERS PAYERS ENCOUNTER GUARANTOR PAYER SUBSCRIBER SOURCE 10/07/2018 SIMON L Primary SIMON Costa [id number] Insurance:MEDICAL SCHULZDOB: [facility] [id number], Number: Repository [place] [id number]: 330 [id number] [phone] () Date:4475-10-11RP [address] [address]EA: 10/07/2018 Secondary NOT GIVENUNK [facility] Insurance:SELF PAY [facility] Number: Effective Repository Date:2018-10-07 09/03/2018 SIMON L Primary SIMON Costa [id number] Insurance:MEDICAL SCHULZDOB: [facility] [id number], Number: Repository [place] [id number]: 330 [id number] [phone] () Date:6031-27-80LP [address] [place] [address]KE: 09/03/2018 Secondary NOT GIVENUNK Igor Insurance:SELF PAY [facility] Number: Effective Repository Date:2018-09-03 09/03/2018 SMION L Primary SIMON Costa [id number] Insurance:MEDICAL SCHULZDOB: [facility] [id number], Number: Repository [place] [id number]: 330 [id number] [phone] () Date:4889-73-13XZ [address] [place] [address]WL: 09/03/2018 Secondary NOT GIVENUNK [facility] Insurance:SELF PAY [facility] Number: Effective Repository Date:2018-09-03 09/03/2018 SIMON L Primary SIMON Montoya Igor [id number] Insurance:MEDICAL SCHULZDOB: [facility] [id number], Number: Repository [place] [id number]: (330 [id number] [phone] (HP) Date:5460-00-02IW [address] [address]QU: 09/03/2018 Secondary NOT GIVENUNK [facility] Insurance:SELF PAY [facility] Number: Effective Repository Date:2018-09-03 09/03/2018 SIMON L Primary SIMON Montoya [facility] [id number] Insurance:MEDICAL SCHULZDOB: [facility] [id number], Number: [place]ository [place] [id number]: (330 [id number] [phone] () Date:3689-58-72VA [address] [address]TM: 09/03/2018 Secondary NOT GIVENUNK Igor Insurance:SELF PAY [facility] Number: Effective Repository Date:2018-09-03 09/03/2018 SIMON L Primary SIMON Montoya Igor [id number] Insurance:MEDICAL SCHULZDOB: [facility] [id number], Number: Repository [place] [id number]: (330 [id number] [phone] () Date:2798-56-99XN [address] [address]AJ: 09/03/2018 Secondary NOT GIVENUNK Igor Insurance:SELF PAY [facility] Number: Effective Repository Date:2018-09-03 09/03/2018 SIMON L Primary SIMON Montoya [facility] [id number] Insurance:MEDICAL SCHULZDOB: [facility] [id number], Number: Repository [place] [id number]: (330 [id number] [phone] (HP) Date:3569-30-56DW [address] [place] [address]VA: 09/03/2018 Secondary NOT GIVENUNK [facility] Insurance:SELF PAY [facility] Number: Effective Repository Date:2018-09-03 09/03/2018 SIMON L Primary SIMON Costa [id number] Insurance:MEDICAL SCHULZDOB: [facility] [id number], Number: Repository [place] [id number]: (330 [id number] [phone] (HP) Date:8968-76-42UG [address] [place] [address]ZW: 09/03/2018 Secondary NOT GIVENUNK I[place] Insurance:SELF PAY [facility] Number: Effective Repository Date:2018-09-03 09/03/2018 SIMON L Primary SIMON Storyoster [id number] Insurance:MEDICAL SCHULZDOB: [facility] [id number], Number: Repository [place] [id number]: (330 [id number] [phone] (HP) Date:4318-42-01AM [address] [address]XL: 09/03/2018 Secondary NOT GIVENUNK Igor Insurance:SELF PAY [facility] Number: Effective Repository Date:2018-09-03 09/03/2018 SIMON L Primary SIMON Costa [id number] Insurance:MEDICAL SCHULZDOB: [facility] [id number], Number: Repository [place] [id number]: (330) [id number] [phone] (HP) Date:4949-98-24EF [address] [place] [address]KO: 09/03/2018 Secondary NOT GIVENUNK [facility] Insurance:SELF PAY [facility] Number: Effective Repository Date:2018-09-03 09/03/2018 SIMON L Primary SIMON Costa [id number] Insurance:MEDICAL SCHULZDOB: [facility] [id number], Number: Repository [place] [id number]: (330) [id number] [phone] (HP) Date:6637-08-74LK [address] [place] [address]OU: 09/03/2018 Secondary NOT GIVENUNK Igor Insurance:SELF PAY [facility] Number: Effective Repository Date:2018-09-03 09/03/2018 SIMON L Primary SIMON Montoya Igor [id number] Insurance:MEDICAL SCHULZDOB: [facility] [id number], Number: Repository [place] [id number]: (330 [id number] [phone] (HP) Date:4296-83-15SS [address] [address]FF: 09/03/2018 Secondary NOT GIVENUNK [facility] Insurance:SELF PAY [facility] Number: Effective Repository Date:2018-09-03 09/03/2018 SIMON L Primary SIMON Costa [id number] Insurance:MEDICAL SCHULZDOB: [facility] [id number], Number: Repository [place] [id number]: (330 [id number] [phone] (HP) Date:9683-11-78SW [address] [place] [address]LI: 09/03/2018 Secondary NOT GIVENUNK Igor Insurance:SELF PAY [facility] Number: Effective Repository Date:2018-09-03 09/03/2018 SIMON L Primary SIMON Costa [id number] Insurance:MEDICAL SCHULZDOB: [facility] [id number], Number: Repository [place] [id number]: [phone] [id number] [phone] (HP) Date:9760-27-47RN [address] [place] [address]AR: 09/03/2018 Secondary NOT GIVENUNK Igor Insurance:SELF PAY [facility] Number: Effective Repository Date:2018-09-03 09/03/2018 SIMON L Primary SIMON Costa [id number] Insurance:MEDICAL SCHULZDOB: [facility] [id number], Number: Repository [place] [phone]: ([phone] [id number] [phone] Date:1214-11-37XV [address] [place] [address]AS: 09/03/2018 Secondary NOT GIVENUNK Igor Insurance:SELF PAY [facility] Number: Effective Repository Date:2018-09-03 09/03/2018 SIMON L Primary SIMON [facility] [id number] Insurance:MEDICAL SCHULZDOB: [facility] [id number], Number: Repository [place] [id number]: ([phone] [id number] [phone] () Date:9414-02-97XX [address] [phone]: 09/03/2018 Secondary NOT GIVENUNK [facility] Insurance:SELF PAY [facility] Number: Effective Repository Date:2018-09-03 09/03/2018 SIMON L Primary SIMON Costa [id number] Insurance:MEDICAL SCHULZDOB: [facility] [id number], Number: [place]ository [place] [id number]: ([phone] [id number] [phone] () Date:6250-30-49HJ [address] [place] [address]XT: 09/03/2018 Secondary NOT GIVENUNK Igor Insurance:SELF PAY [facility] Number: Effective Repository Date:2018-09-03 09/03/2018 SIMON L Primary SIMON Costa [id number] Insurance:MEDICAL SCHULZDOB: [place] [id number], Number: Repository [place] [phone]: ([phone] [id number] [phone] (HP) Date:9339-61-86UU [address] [place] [address]OK: 09/03/2018 Secondary NOT GIVENUNK [facility] Insurance:SELF PAY [facility] Number: Effective Repository Date:2018-09-03 09/03/2018 SIMON L Primary SIMON Montoya Igor [id number] Insurance:MEDICAL SCHULZDOB: [facility] [id number], Number: Repository [place] [phone]: ([phone] [id number] [phone] (HP) Date:2545-30-29IU [address] [address]IP: 09/03/2018 Secondary NOT GIVENUNK Igor Insurance:SELF PAY [facility] Number: Effective Repository Date:2018-09-03 09/03/2018 SIMON L Primary SIMON [facility] [id number] Insurance:MEDICAL SCHULZDOB: [facility] [id number], Number: Repository [place] [id number]: ([phone] [id number] [phone] ([phone]) Date:8117-10-58YC [address] [address]WW: 09/03/2018 Secondary NOT GIVENUNK Igor Insurance:SELF PAY [facility] Number: Effective Repository Date:2018-09-03 09/03/2018 SIMON L Primary SIMON [facility] [id number] Insurance:MEDICAL SCHULZDOB: [facility] [id number], Number: Repository [place] [phone]: ([phone] [id number] [phone]) Date:7186-75-52UQ [address] [place] [address]SB: 09/03/2018 Secondary NOT GIVENUNK Igor Insurance:SELF PAY [facility] Number: Effective Repository Date:2018-09-03 09/03/2018 SIMON L Primary SIMON Costa [id number] Insurance:MEDICAL SCHULZDOB: [facility] [id number], Number: Repository [place] [phone]: ([phone] [id number] [phone] ([phone]) Date:1834-85-70DT [address] [address]MF: 09/03/2018 Secondary NOT GIVENUNK [facility] Insurance:SELF PAY [facility] Number: Effective Repository Date:2018-09-03 09/03/2018 SIMON L Primary SIMON Costa [id number] Insurance:MEDICAL SCHULZDOB: [facility] [id number], Number: Repository [place] [phone]: ([phone] [id number] [phone] (HP) Date:2944-09-42EK [address] [place] [phone]: 09/03/2018 Secondary NOT GIVENUNK [facility] Insurance:SELF PAY [facility] Number: Effective Repository Date:2018-09-03 09/03/2018 SIMON L Primary SIMON Costa [id number] Insurance:MEDICAL SCHULZDOB: [facility] [id number], Number: Repository [place] [phone]: [phone] [id number] [phone] (HP) Date:5144-84-69FL [address] [address]BK: 09/03/2018 Secondary NOT GIVENUNK Igor Insurance:SELF PAY [facility] Number: Effective Repository Date:2018-09-03 09/03/2018 SIMON L Primary SIMON Costa [id number] Insurance:MEDICAL SCHULZDOB: [place] [id number], Number: [place]ository [place] [phone]: ([phone] [id number] [phone] (HP) Date:2706-44-12NE [address] [place] [phone]: 09/03/2018 Secondary NOT GIVENUNK [facility] Insurance:SELF PAY [facility] Number: Effective Repository Date:2018-09-03 09/03/2018 SIMON Montoya Primary SIMON Costa [id number] Insurance:MEDICAL SCHULZDOB: [address], Number: Repository [place] [phone]: ([phone] [id number] [phone] (HP) Date:4901-64-11JJ [address] [place] [address]SG: 09/03/2018 Secondary NOT GIVENUNK [facility] Insurance:SELF PAY [facility] Number: Effective Repository Date:2018-09-03 09/03/2018 SIMON L Primary SIMON Costa [id number] Insurance:MEDICAL SCHULZDOB: [address], Number: [place]ository [place] [phone]: ([phone] [id number] [phone] (HP) Date:7884-12-20NT [address] [address]HZ: 09/03/2018 Secondary NOT GIVENUNK [facility] Insurance:SELF PAY [facility] Number: Effective Repository Date:2018-09-03 09/03/2018 SIMON Montoya Primary SIMON Costa [id number] Insurance:MEDICAL SCHULZDOB: [address], Number: Repository [place] [id number]: ([phone] [id number] [phone] (HP) Date:9678-94-54HV [address] [place] [phone]: 09/03/2018 Secondary NOT GIVENUNK [facility] Insurance:SELF PAY [facility] Number: Effective Repository Date:2018-09-03
== END 2018-09-27 16:28 | disposition skilled nursing facility (03) | DRG 329 ==
LOC: ED 17:25 → MS3 19:53
PROVIDERS: Family Medicine; Internal Medicine; Surgery; Admitting Provider Hospitalist; Emergency Provider Emergency Medicine; Referring Provider Hospitalist; Visit Provider Student in an Organized Health Care Education/Training Program
PROC: 0DT80ZZ Resection of Small Intestine, Open Approach (ICD-10-PCS; CPT 44202; principal; 2018-09-08 12:25)
PROC: 0DJ08ZZ Inspection of Upper Intestinal Tract, Via Natural or Artificial Opening Endoscopic (ICD-10-PCS; CPT 43235; principal; 2018-09-17 10:25)
DX: K56.51 Intestinal adhesions [bands], with partial obstruction (principal); E43 Unspecified severe protein-calorie malnutrition; Z68.1 Body mass index [BMI] 19.9 or less, adult; C18.0 Malignant neoplasm of cecum; K91.71 Accidental puncture and laceration of a digestive system organ or structure during a digestive system procedure; Z90.49 Acquired absence of other specified parts of digestive tract; Z79.899 Other long term (current) drug therapy; Z53.31 Laparoscopic surgical procedure converted to open procedure; Y83.8 Other surgical procedures as the cause of abnormal reaction of the patient, or of later complication, without mention of misadventure at the time of the procedure; K56.7 Ileus, unspecified
CPT/HCPCS: 36415; 71045; 74018; 74019; 74176; 74177; 80048; 80053; 80061; 80069; 80076; 82962; 83605; 83690; 83735; 84100; 84134; 84478; 85025; 85730; 88304; 88305; 88307; 88331; 88342; 93005; 94762; 97116; 97161; 97162; 97164; 97166; 97530; 97802; 97803; 99283; J7030; J7120; A4216; J2270; J2405

== ENCOUNTER → 2018-10-07 15:11 | Outpatient (CLI) | payer OTHER, SELFPAY ==
[2018-09-08 10:40] VITALS: BMI 21.8
--- NOTE | 2018-10-07 15:15 | RAD_ITS ---
STUDY: X-RAY CHEST REASON FOR EXAM: Male, 62 years old. Cough. TECHNIQUE: PA and lateral views of the chest. COMPARISON: September 10, 2018. FINDINGS: Stable right jugular Port-A-Cath. The NG tube, present on the prior study, is no longer visualized. The lungs are hyperexpanded. There is no acute infiltrate or mass. There is no demonstrated pleural abnormality. Normal size heart. Normal mediastinum and lovely. Normal visualized pulmonary arteries. Normal visualized aortic arch and descending thoracic aorta. There is straightening of the normal kyphosis of the thoracic spine. Normal visualized ribs, clavicles, and shoulders. There is no demonstrated abnormality of the visualized soft tissue structures of the upper abdomen. RAD/Chest PA and Lateral IMPRESSION: 1. Interval removal of the NG tube seen on the prior study. 2. There is no other major interval change. Electronically Signed: Blas Cowart DO at 16:16 EST Tel [phone], Service support ,
--- OUTSIDE RECORDS SUMMARY | 2018-12-12 10:41 | XMS RPT_ITS ---
:1955 Author Organization [place] Support Name Relationship Address Phone REED HER Unavailable Unavailable + R Unavailable Unavailable Unavailable GORDON PEACOCKS Unavailable [address] + [address] [place] [address] REED HER Unavailable Unavailable + R Unavailable Unavailable Unavailable AYUSH, MINNIE Unavailable [address] + [address] [place] [address] REED HER Unavailable Unavailable + R Unavailable Unavailable Unavailable AYUSH MINNIE Unavailable [address] + [address] [place] [address] REED HER Unavailable Unavailable + R Unavailable Unavailable Unavailable TYLER PEACOCKDYS Unavailable [address] + [address] [place] [address] REED HER Unavailable Unavailable + R Unavailable Unavailable Unavailable AYUSH MINNIE Unavailable [address] + [address] [place] [address] REED HER Unavailable Unavailable + R Unavailable Unavailable Unavailable AYUSH MINNIE Unavailable [address] + [address] [place] [address] REED HER Unavailable Unavailable + R Unavailable Unavailable Unavailable AYUSH, MINNIE Unavailable [address] + [address] [place] [address] REED HER Unavailable Unavailable + R Unavailable Unavailable Unavailable AYUSH MINNIE Unavailable [address] + [address] [place] [address] REED HER Unavailable Unavailable + R Unavailable Unavailable Unavailable AYUSH, MINNIE Unavailable [address] + [address] [place] [address] REED HER Unavailable Unavailable + R Unavailable Unavailable Unavailable AYUSH, MINNIE Unavailable [address] + [address] [place] [address] REED HER Unavailable Unavailable + R Unavailable Unavailable Unavailable AYUSH, MINNIE Unavailable [address] + [address] [place] [address] REED HER Unavailable Unavailable + R Unavailable Unavailable Unavailable AYUSH, MINNIE Unavailable [address] + [address] [place] [address] REED HER Unavailable Unavailable + R Unavailable Unavailable Unavailable AYUSH, MINNIE Unavailable [address] + [address] [place] [address] REED HER Unavailable Unavailable + R Unavailable Unavailable Unavailable AYUSH, MINNIE Unavailable [address] + [address] [place] [address] REED HER Unavailable Unavailable + R Unavailable Unavailable Unavailable AYUSH, MINNIE Unavailable [address] + [address] [place] [address] REED HER Unavailable Unavailable + R Unavailable Unavailable Unavailable AYUSH, MINNIE Unavailable [address] + [address] [place] [address] REED HER Unavailable Unavailable + R Unavailable Unavailable Unavailable AYUSH, MINNIE Unavailable [address] + [address] [place] [address] REED HER Unavailable Unavailable + R Unavailable Unavailable Unavailable AYUSH, MINNIE Unavailable [address] + [address] [place] [address] REED HER Unavailable Unavailable + R Unavailable Unavailable Unavailable AYUSH, MINNIE Unavailable [address] + [address] [place] [address] REED HER Unavailable Unavailable + R Unavailable Unavailable Unavailable AYUSH, MINNIE Unavailable [address] + [address] [place] [address] REED HER Unavailable Unavailable + R Unavailable Unavailable Unavailable AYUSH, MINNIE Unavailable [address] + [address] [place] [address] REED HER Unavailable Unavailable + R Unavailable Unavailable Unavailable AYUSH, MINNIE Unavailable [address] + [address] [place] [address] REED HER Unavailable Unavailable + R Unavailable Unavailable Unavailable AYUSH, MINNIE Unavailable [address] + [address] [place] [address] REED HER Unavailable Unavailable + R Unavailable Unavailable Unavailable AYUSH, MINNIE Unavailable [address] + [address] [place] [address] REED HER Unavailable Unavailable + R Unavailable Unavailable Unavailable AYUSH, MINNIE Unavailable [address] + [address] [place] [address] REED HER Unavailable Unavailable + R Unavailable Unavailable Unavailable AYUSH, MINNIE Unavailable [address] + [address] [place] [address] REED HER Unavailable Unavailable + R Unavailable Unavailable Unavailable AYUSH, MINNIE Unavailable [address] + [address] [place] [address] REED HER Unavailable Unavailable + R Unavailable Unavailable Unavailable AYUSH, MINNIE Unavailable [address] + [address] [address] Care Team Providers Name Role Phone MASCI, YOHAN Houston Referring Unavailable MASCI, YOHAN Houston Attending Unavailable MASCI, YOHAN Houston Referring Unavailable MASCI, YOHAN Houston Referring Unavailable MASCI, YOHAN Houston Referring Unavailable HINA, SIMON Benites Attending Unavailable MASCI, YOHAN Houston Referring Unavailable MASCI, YOHAN Houston Referring Unavailable MASCI, YOHAN Houston Referring Unavailable MASCI, YOHAN Houston Referring Unavailable HINA, SIMON Benites Admitting Unavailable HINA, SIMON Benites Attending Unavailable HINA, SIMON Benites Referring Unavailable MASCI, YOHAN A Referring Unavailable MASCI, YOHAN A Referring Unavailable MASCI, YOHAN Houston Referring Unavailable MASCI, YOHAN Houston Referring Unavailable MASCI, YOHAN Houston Referring Unavailable MASCI, YOHAN Houston Attending Unavailable MASCI, YOHAN Houston Referring Unavailable MASCI, YOHAN Houston Referring Unavailable MASCI, YOHAN Houston Referring Unavailable MASCI, YOHAN Houston Referring Unavailable MARICRUZ, CORY Attending Unavailable MASCI, YOHAN Houston Referring Unavailable MARICRUZ, CORY Referring Unavailable MARICRUZ, CORY Attending Unavailable MARICRUZ, COYR Referring Unavailable MASCI, YOHAN Houston Referring Unavailable MASCI, YOHAN Houston Referring Unavailable MASCI, YOHAN Houston Attending Unavailable MASCI, YOHAN Houston Referring Unavailable MASCI, YOHAN Houston Referring Unavailable MARICRUZ, CORY Referring Unavailable MARICRUZ, CORY Attending Unavailable MARICRUZ, CORY Referring Unavailable MASCI, YOHAN Houston Referring Unavailable MASCI, YOHAN Houston Attending Unavailable MASCI, YOHAN Houston Referring Unavailable MASCI, YOHAN Houston Referring Unavailable MASCI, YOHAN Houston Referring Unavailable MARICRUZ, CORY Referring Unavailable MARICRUZ, CORY Attending Unavailable MARICRUZ, CORY Referring Unavailable MASCI, YOHAN [...] YOHAN A Referring Unavailable MASCI, YOHAN Houston Referring Unavailable [...] Referring Unavailable HINA, SIMON Benites Attending Unavailable Primay Care Physicia, No Primary Care Unavailable AgyepongJosep Admitting Unavailable Agyepong, Josep Referring Unavailable Hina, Simon Consulting Unavailable KoramLisa Attending Unavailable Agyepong, Josep Admitting Unavailable Agyepong, Josep Attending Unavailable AgyepongJosep Referring Unavailable Primay Care Physicia, No Primary Care Unavailable AgyepongJosep Consulting Unavailable AgyepongJosep Admitting Unavailable Paintsil, [place] Attending Unavailable AgyeponJosep bess Referring Unavailable Primay Care Physicia, No Primary Care Unavailable Hina, Simon Consulting Unavailable Paintsil, [place] Consulting Unavailable AgyeponJosep bess Admitting Unavailable Paintsil, Shelbie Attending Unavailable AgyeponJosep bess Referring Unavailable Primay Care Physicia, No Primary Care Unavailable Hina, Simon Consulting Unavailable Paintsil, [place] Consulting Unavailable AgyepongJosep Admitting Unavailable Rufino, Akira [...] Consulting Unavailable Ashkan Mancia Consulting Unavailable Agyepong, oJsep Admitting Unavailable Ashkan Mancia Attending Unavailable Agyepong, [...] Encounter Oren Hogan Active [place] for other [facility] preprocedural Hospital examination / Repository Z01.818(ICD-10) 04/06/2018 Active 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 / Clinic Main C18.2(ICD-10) [place] Repository 02/02/2018 Active Unspecified fracture NA Active [facility] of left patella, Clinic Main subsequent encounter [place] for closed fracture Repository with routine healing / S82.002D(ICD-10) 01/13/2018 Active Unspecified fracture NA Active [facility] of right patella, Clinic Main initial encounter for [place] closed fracture / Repository S82.001A(ICD-10) 12/29/2017 Active Pain in left knee / NA Active [facility] M25.562(ICD-10) Clinic Main [place] Repository 06/19/2017 Active 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 / Repository C78.6(ICD-10) 06/19/2016 Active Malignant neoplasm of NA Active [facility] colon, unspecified / Clinic Main C18.9(ICD-10) [place] Repository 06/19/2016 Active Secondary and NA Active [facility] unspecified malignant Clinic Main 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 / C77.2(ICD-10) 11/27/2017 Active Encounter for Maya SANTAMARIA [place] screening for SIMON T Clinic Main malignant neoplasm of [place] colon / Repository Z12.11(ICD-10) 06/19/2016 Active Malignant neoplasm of NA Active [place] cecum / C18.0(ICD-10) Clinic Main [place] Repository 10/26/2017 Active Unknown / NA Active [facility] UNK(Unknown) Clinic Main [place] Repository PROCEDURES PROCEDURES No Procedure Records FoundRESULTS RESULTS CHEST PA AND LATERAL Observed: 10/07/2018 Status: F Source: [place] 3:15 PM [facility] REPOSITORY [facility] Imaging Services [address] [place] [address] Chest PA and Lateral MR#: [id number] Acct: [id number] Name: SIMON PEACOCK Rep #: [id number] : 1955 M 62 From: Blas Cowart DO PCP: Care Physician, No Primary Status: REG CLI Study: Chest PA and Lateral Date of Exam: 10/07/18 Exam# [id number] Ordering Dr: Dontae Matthews MD STUDY: X-RAY [...] Blas Cowart DO at 16:16 EST Tel [phone], Service support , CC: No Primary Care Physician; Dontae Matthews MD Die Cast Operator: Signed PROGRESS Observed: 10/06/2018 Status: COMPLETED Source: [place] 5:57 AM [facility] REPOSITORY HNO ID: [id number] Author: Simon Santamaria Service: (none) Author Type: Physician Type: Progress Notes Filed: 10/06/2018 6:05 AM Note Text: FOLLOW UP VISIT - POST OP NAME: Simon Peacock [facility] NO.: [id number] DATE OF SERVICE: 10/05/2018 : 1955 REFERRING [...] psoas muscle. The patient was sent to [facility] I was consulted on September 04, 2018 [...] MD CNOV Observed: 10/05/2018 Status: COMPLETED Source: [place] 3:00 PM [facility] REPOSITORY Office Visit (GENSWS) SIMON PEACOCK ([id number]) 1955 M Date Time Provider Department 10/05/18 3:00 PM SIMON SANTAMARIA [facility] During your visit today, we recorded the following information about you: Temperature Pulse Respiration Blood pressure 98.1 degrees 68/minute 16/minute 116/52 Weight Height 74.8 kg 1.93 m Simon Santamaria MD 10/06/2018 6:05 AM Signed FOLLOW UP VISIT - POST OP NAME: Simon Peacock CLINIC NO.: [id number] DATE OF SERVICE: 10/05/2018 : 1955 REFERRING [...] psoas muscle. 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] INVALID FOR* Dehydration [E86.0] INVALID FOR* CKD (chronic kidney disease) stage 2, GFR 60-89*INVALID FOR* Follow-up and Disposition History Recorded Letter Text Encounter Status:Closed by SIMON SANTAMARIA MD on 10/06/18 DISCHARGE SUMMARY Observed: 09/27/2018 Status: F Source: [place] 1:06 PM [facility] REPOSITORY [facility] Medical Records Department [address] [place] [address] Discharge Summary 09/27/18 1046 MR#: [id number] Acct: [id number] Name: SIMON PEACOCK Rep #: [id number] : 1955 62 From: Lisa Glass MD PCP: Care Physician, No Primary Status: ADM IN Location: [place] [address] Discharge Date and Diagnosis - Problem List [...] Moo Trinh MD at 11:00 EST Tel [phone], Service support , Chest X-Ray 09/10/18 14:55 [...] February 01, 2016 and had surgery at [facility] on March 04, 2016 which demonstrated abdominal [...] scheduled to go to an LTAC or chcf facility for rehab on account of his severe debility and malnutrition. Insurance initially denied LTAC or custodial precertification. A peer to peer evaluation was conducted by Dr. Marx with Dr. Buitrago of the insurance company and insurance allowed precertification for custodial. Patient was discharged to the custodial on postop day 18 on 09/27/2018 on [...] abdominal pain, any diarrhea or vomiting. Abdominal [place] had been taken out a few days [...] Simon Santamaria MD When: 1-2 WEEKS Disposition: [facility] facility Minutes spent on discharge:: 45 Patient Condition:: Stable Medical Necessity - Tobacco Use Smoking Status: Never smoker Meaningful Use Info Meaningful Use Diagnoses (Choose all that apply): None applicable Code Visit Inpatient E AND M: 13266 Disch Hosp 09/27/18 1306 <Electronically signed by Lisa Glass MD> Date Lisa Glass MD Cosigner Signature (if applicable): Date CC: No Primary Care Physician; Selin Fontanez; Lisa Glass MD Signed TRANSFER TO [facility] Observed: 09/27/2018 Status: F Source: [facility] 10:46 AM [facility] REPOSITORY [facility] Medical Records Department [address] [place] [address] Transfer to [facility] Care MR#: [id number] Acct: [id number] Name: SIMON PEACOCK Rep #: [id number] : 1955 62 From: Lisa Glass MD PCP: Care Physician, No Primary Status: ADM IN SIMON PEACOCK (Patient) (Health Ins. Claim No.) (Day of Discharge to Facility) Certification of patient admission REQUIRED AT TIME OF ADMISSION. I CERTIFY THAT POST-HOSPITAL ECF SERVICES ARE REQUIRED TO BE GIVEN ON AN IN-PATIENT BASIS BECAUSE OF THE ABOVE NAMED PATIENT'S NEED FOR ALF CARE ON A CONTINUING BASIS FOR THE CONDITION(S) FOR WHICH HE/SHE WAS RECEIVING IN-PATIENT HOSPITAL SERVICES PRIOR TO HIS/HER TRANSFER TO THE [facility]. 09/27/18 1046 <Electronically signed by Lisa Glass [...] F Source: [place] PROFILE (BMP) 8:15 AM [facility] REPOSITORY TYPE CODE TESTS RESULT OUT [...] 9 GAP Performed By: #### L500.2500 #### [facility] [address] [place] [place], [address] BEDSIDE GLUCOSE Collected: 09/24/2018 Status: F Source: [place] 8:54 PM [facility] REPOSITORY TYPE CODE TESTS RESULT OUT OF REFERENCE UNITS RANGE LAB L501.080 70-110 mg/dL High BEDSIDE GLU 134 Result Comment: MANAGEMENT OF PATIENT CARE PER NURSING PROTOCOL Performed By: #### L501.080 #### [facility] Laboratory Point of Care [address] [place], [place] [address] BASIC METABOLIC Collected: 09/24/2018 Status: F Source: [place] PROFILE (BMP) 10:15 AM [facility] REPOSITORY TYPE CODE TESTS RESULT OUT [...] GAP 11 Performed By: #### L500.2500 #### [facility] [address] [place], [place], [address] BEDSIDE GLUCOSE Collected: 09/23/2018 Status: F Source: [place] 9:37 PM [facility] REPOSITORY TYPE CODE TESTS RESULT OUT OF REFERENCE UNITS RANGE LAB L501.080 70-110 mg/dL High BEDSIDE GLU 123 Result Comment: MANAGEMENT OF PATIENT CARE PER NURSING PROTOCOL Performed By: #### L501.080 #### [facility] Point of Care [address] [place], [place] [address] CBC W/DIFF, AUTOMATED Collected: 09/23/2018 Status: F Source: [place] 5:48 AM [facility] REPOSITORY TYPE CODE TESTS RESULT OUT [...] Lymph 1.05 Performed By: #### L100.0100 #### [facility] [address] [place], [address] COMPREHENSIVE METABOLIC Collected: 09/23/2018 Status: F Source: [place] 5:48 AM [facility] REPOSITORY TYPE CODE TESTS RESULT OUT [...] Performed By: #### L500.4050, L501.5000, L501.5200 #### [facility] [address] [place], [address] TRIGLYCERIDES Collected: 09/23/2018 Status: F Source: [place] 5:48 AM [facility] REPOSITORY TYPE CODE TESTS RESULT OUT OF RANGE REFERENCE UNITS LAB L501.5000 mg/dL Normal TRIG 93 Result Comment: The drugs N-Acetylcysteine and Metamizole may falsely depress this assay. Serum Triglycerides Reference Interval Normal <150 mg/dL Borderline high 150 - 199 mg/dL High 200 - 499 mg/dL Very High > or = 500 mg/dL Performed By: #### L500.4050, L501.5000, L501.5200 #### [facility] [address] [place], [address] MAGNESIUM Collected: 09/23/2018 Status: F Source: [place] 5:48 AM [facility] REPOSITORY TYPE CODE TESTS RESULT OUT OF RANGE REFERENCE UNITS LAB L501.5200 1.6-2.6 mg/dL Normal MG 1.9 Performed By: #### L500.4050, L501.5000, L501.5200 #### [facility] [address] [place], [address] BEDSIDE GLUCOSE Collected: 09/23/2018 Status: F Source: [place] 3:54 AM [facility] REPOSITORY TYPE CODE TESTS RESULT OUT OF REFERENCE UNITS RANGE LAB L501.080 70-110 mg/dL High BEDSIDE GLU 137 Result Comment: MANAGEMENT OF PATIENT CARE PER NURSING PROTOCOL Performed By: #### L501.080 #### [facility] Point of Care [address] [place] [address] BEDSIDE GLUCOSE Collected: 09/22/2018 Status: F Source: [place] 10:10 PM [facility] REPOSITORY TYPE CODE TESTS RESULT OUT OF REFERENCE UNITS RANGE LAB L501.080 70-110 mg/dL High BEDSIDE GLU 124 Result Comment: MANAGEMENT OF PATIENT CARE PER NURSING PROTOCOL Performed By: #### L501.080 #### [facility] Point of Care [address] [place] [address] ABD INC DECUB Observed: 09/22/2018 Status: F Source: [place] AND/OR ERECT 7:04 AM [facility] REPOSITORY [facility] Imaging Services [address] [place] [address] Abd Inc Decub and/or Erect MR#: [id number] Acct: [id number] Name: SIMON PEACOCK [place] Rep #: [id number] : 1955 M 62 From: Nissa Nicole MD PCP: Care Physician, No Primary Status: ADM IN Study: Abd Inc Decub and/or Erect Date of Exam: 09/22/18 Exam# [id number] Ordering Dr: Simon Santamaria MD STUDY: X-RAY [...] No Primary Care Physician; Simon Santamaria MD Die Cast Operator: Signed CBC W/DIFF, AUTOMATED Collected: 09/22/2018 Status: F Source: [place] 5:58 AM [facility] REPOSITORY TYPE CODE TESTS RESULT OUT [...] Lymph 1.05 Performed By: #### L100.0100 #### [facility] [place], [address] COMPREHENSIVE METABOLIC Collected: 09/22/2018 Status: F Source: [place] 5:58 AM [facility] REPOSITORY TYPE CODE TESTS RESULT OUT [...] Performed By: #### L500.4050, L501.5000, L501.5200 #### [facility] [address] [place], [address] TRIGLYCERIDES Collected: 09/22/2018 Status: F Source: [place] 5:58 AM [facility] REPOSITORY TYPE CODE TESTS RESULT OUT OF RANGE REFERENCE UNITS LAB L501.5000 mg/dL Normal TRIG 95 Result Comment: The drugs N-Acetylcysteine and Metamizole may falsely depress this assay. Serum Triglycerides Reference Interval Normal <150 mg/dL Borderline high 150 - 199 mg/dL High 200 - 499 mg/dL Very High > or = 500 mg/dL Performed By: #### L500.4050, L501.5000, L501.5200 #### [facility] [address] [facility] [place], [address] MAGNESIUM Collected: 09/22/2018 Status: F Source: [place] 5:58 AM [facility] REPOSITORY TYPE CODE TESTS RESULT OUT OF RANGE REFERENCE UNITS LAB L501.5200 1.6-2.6 mg/dL Normal MG 2.0 Performed By: #### L500.4050, L501.5000, L501.5200 #### [facility] [address] [place], [address] CBC W/DIFF, AUTOMATED Collected: 09/21/2018 Status: F Source: [place] 6:55 AM [facility] REPOSITORY TYPE CODE TESTS RESULT OUT [...] Lymph 1.12 Performed By: #### L100.0100 #### [facility] [address] [place], [address] COMPREHENSIVE METABOLIC Collected: 09/21/2018 Status: F Source: [facility] 6:55 AM [facility] REPOSITORY TYPE CODE TESTS RESULT OUT [...] Performed By: #### L500.4050, L501.5000, L501.5200 #### [facility] [address] [facility] [facility] [address] TRIGLYCERIDES Collected: 09/21/2018 Status: F Source: [place] 6:55 AM [facility] REPOSITORY TYPE CODE TESTS RESULT OUT OF RANGE REFERENCE UNITS LAB L501.5000 mg/dL Normal TRIG 95 Result Comment: The drugs N-Acetylcysteine and Metamizole may falsely depress this assay. Serum Triglycerides Reference Interval Normal <150 mg/dL Borderline high 150 - 199 mg/dL High 200 - 499 mg/dL Very High > or = 500 mg/dL Performed By: #### L500.4050, L501.5000, L501.5200 #### [facility] [address] [place], [address] MAGNESIUM Collected: 09/21/2018 Status: F Source: [place] 6:55 AM [facility] REPOSITORY TYPE CODE TESTS RESULT OUT OF RANGE REFERENCE UNITS LAB L501.5200 1.6-2.6 mg/dL Normal MG 2.2 Performed By: #### L500.4050, L501.5000, L501.5200 #### [facility] [address] [place], [address] CBC W/DIFF, AUTOMATED Collected: 09/18/2018 Status: F Source: [place] 6:20 AM [facility] REPOSITORY TYPE CODE TESTS RESULT OUT [...] Lymph 1.14 Performed By: #### L100.0100 #### [facility] [address] [place], [address] BASIC METABOLIC Collected: 09/18/2018 Status: F Source: [place] PROFILE (BMP) 6:20 AM [facility] REPOSITORY TYPE CODE TESTS RESULT OUT [...] Performed By: #### L500.2500, L501.2300, L501.5200 #### [facility] [address] [place], [place], [address] PHOSPHORUS Collected: 09/18/2018 Status: F Source: [place] 6:20 AM [facility] REPOSITORY TYPE CODE TESTS RESULT OUT OF RANGE REFERENCE UNITS LAB L501.2300 2.5-4.9 mg/dL Normal PHOS 3.2 Performed By: #### L500.2500, L501.2300, L501.5200 #### [facility] [address] [place], [address] MAGNESIUM Collected: 09/18/2018 Status: F Source: [place] 6:20 AM [facility] REPOSITORY TYPE CODE TESTS RESULT OUT OF RANGE REFERENCE UNITS LAB L501.5200 1.6-2.6 mg/dL Normal MG 2.2 Performed By: #### L500.2500, L501.2300, L501.5200 #### [facility] [address] [place], [address] PROGRESS Observed: 09/17/2018 Status: COMPLETED Source: [place] 3:42 PM [facility] REPOSITORY HNO ID: [id number] Author: Simon Santamaria Service: (none) Author Type: Physician Type: Progress Notes Filed: 09/17/2018 3:45 PM Note Text: OPERATIVE NOTATION FOR [facility] SURGICAL PROCEDURE. September 17, 2018 Simon Allenz 1955 [id number] male PROCEDURE: EGD WITH PEG TUBE PLACEMENT - [id number] SURGEON: Yo Santamaria M.D. 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 dictation system. Simon Santamaria MD GASTRIC BIOPSY Observed: 09/17/2018 Status: F Source: [place] 12:45 PM [facility] REPOSITORY Patient: SIMON PEACOCK : 1955 (62/M) Acct Num: [id number] Phys: Lisa Glass MD Unit Num: [id number] Loc: MS3 [id number] Specimen: [id number] Received: 09/17/18 - 6220 Spec Type: Gastric Bx TISSUES 1 TISSUES: Gastric mucous membrane COMMENT The results of immunohistochemistry for Helicobacter pylori will be reported separately ([id number]). GROSS DESCRIPTION Received in fixative is one container labeled with the patient's name and designated antrum biopsy. The specimen consists of one irregular fragment of light alejandro soft tissue that measures 0.3 x 0.2 x 0.1 cm. The specimen is totally submitted in one cassette. / AM:khris 09/17/18 TC:3 CPT: 77119 HEADER OPERATION: Exploratory laparoscopy converted to open exploratory laparoscopy PRE-OP DIAGNOSIS: Small bowel obstruction TISSUE SUBMITTED: Antrum biopsy for H. pylori and path MICROSCOPIC DESCRIPTION Slides are reviewed. MICROSCOPIC DIAGNOSIS Gastric antrum, biopsy: Mild chronic gastritis. See comment. AM:khris 09/20/18 Signed Godwin Nguyen DO 09/20/18 <signature on file> Performed By: #### PGASB #### [facility] [address] [place], [address] IMMUNOHISTOCHEMISTRY Observed: 09/17/2018 Status: F Source: [place] 12:45 PM [facility] REPOSITORY Patient: SIMON PEACOCK : 1955 (62/M) Acct Num: [id number] Phys: Lisa Glass MD Unit Num: [id number] Loc: MS3 [id number] Specimen: [id number] Received: 09/20/18 - 1006 Spec Type: IMMUNO TISSUES 1 TISSUES: Stomach, NOS SPECIMEN INFORMATION: Tissue Source: Exploratory laparoscopy Clinical Info: Small bowel obstruction Specimen Number: [id number] CPT code: 43251 METHODOLOGY: Deparaffinized sections of prefer/formalin-fixed tissue or PAP/DQ stained slides are incubated with monoclonal/polyclonal antibodies/oligonucleotide probes. Localization is made via biotin free immunoperoxidase method. Appropriate controls are performed and reacted as expected. Results on target cell population are indicated in the following table: RESULTS: ANTIBODY / CLONE RESULT H Pylori (polyclonal) negative These tests were developed and their performance characteristics determined by [facility]. They may not have been cleared or approved by the U.S. Food and Drug Administration. The FDA has determined that such clearance or approval is not necessary. INTERPRETATION: Antrum biopsy: Negative for Helicobacter pylori organisms. AM:khris 09/20/[address] [facility] [address] [place], [place] [address] Signed Godwin Nguyen, 09/20/18 <signature on file> Performed By: #### PIMM #### [facility] [address] [place] [address]. [place], [address] OPERATIVE REPORT - Observed: 09/17/2018 Status: F Source: [place] ENDOSCOPY 11:06 AM [facility] REPOSITORY [facility] Medical Records Department [address] [place] [address] Operative Report - Endoscopy MR#: [id number] Acct: [id number] Name: SIMON PEACOCK Rep #: [id number] : 1955 62 From: Simon Santamaria MD [...] by the physician, the nurse and the bedspread folder in the procedure room. Mental Status Examination: [...] present medications. Procedure Code(s): --- Professional --- 01560, Esophagogastroduodenoscopy, flexible, transoral; with directed placement of percutaneous gastrostomy tube 24840, Esophagogastroduodenoscopy, flexible, transoral; with biopsy, single or multiple CPT copyright 2017 [employer]. All rights reserved. The codes documented in this report are preliminary and upon medical research associate review may be revised to meet current compliance requirements. Simon Santamaria MD 09/17/2018 11:05:51 AM This report has been signed electronically. Number of Addenda: 0 Note Initiated On: 09/17/2018 10:29 AM 09/17/18 1106 Date Simon Santamaria MD Cosigner Signature: Date (if indicated) CC: No Primary Care Physician; Josep Allen MD; Ashkan Mancia MD; Simon Santamaria MD Date Dictated: 09/17/18 1029 Date Transcribed: Die Cast Operator: KHRIS Signed COMPREHENSIVE METABOLIC Collected: 09/17/2018 Status: F Source: IG[place] DOCKERY 5:30 AM [facility] REPOSITORY TYPE CODE TESTS RESULT OUT [...] By: #### L500.4050, L501.2300, L501.5200, L506.0500 #### [facility] [address] [place], [place], [id number] PHOSPHORUS Collected: 09/17/2018 Status: F Source: [place] 5:30 AM [facility] REPOSITORY TYPE CODE TESTS RESULT OUT OF RANGE REFERENCE UNITS LAB L501.2300 2.5-4.9 mg/dL Normal PHOS 3.3 Performed By: #### L500.4050, L501.2300, L501.5200, L506.0500 #### [facility] [address] [place], [place], [address] MAGNESIUM Collected: 09/17/2018 Status: F Source: [place] 5:30 AM [facility] REPOSITORY TYPE CODE TESTS RESULT OUT OF RANGE REFERENCE UNITS LAB L501.5200 1.6-2.6 mg/dL Normal MG 2.2 Performed By: #### L500.4050, L501.2300, L501.5200, L506.0500 #### [facility] [address] [place], [address] PREALBUMIN Collected: 09/17/2018 Status: F Source: [place] 5:30 AM [facility] REPOSITORY TYPE CODE TESTS RESULT OUT OF REFERENCE UNITS RANGE LAB L506.0500 20.0-40.0 mg/dL Low PREALBUMIN 18.4 Performed By: #### L500.4050, L501.2300, L501.5200, L506.0500 #### [facility] [address] [place], [address] CBC W/DIFF, AUTOMATED Collected: 09/17/2018 Status: F Source: IGOR 5:30 AM [facility] REPOSITORY TYPE CODE TESTS RESULT OUT [...] Lymph 0.82 Performed By: #### L100.0100 #### [facility] [address] [place], [address] ABD INC DECUB Observed: 09/17/2018 Status: F Source: IG[place] AND/OR ERECT 12:01 AM [facility] Imaging Services [address] [place] [address] Abd Inc Decub and/or Erect MR#: [id number] Acct: [id number] Name: SIMON PEACOCK Rep #: [id number] : 1955 M 62 From: Eliu Nice MD PCP: Care Physician, No Primary Status: ADM IN Study: Abd Inc Decub and/or Erect Date of Exam: 09/17/18 Exam# [id number] Ordering Dr: Simon Santamaria MD STUDY: X-RAY [...] No Primary Care Physician; Simon Santamaria MD Die Cast Operator: Signed CNOP Observed: 09/17/2018 Status: COMPLETED Source: [place] 12:00 AM [facility] REPOSITORY Operative Note (Enc) (GENSWS) Progress Notes: Simon Santamaria MD 09/17/2018 3:45 PM Signed OPERATIVE NOTATION FOR [facility] SURGICAL PROCEDURE. September 17, 2018 Simon Peacock 1955 [id number] male PROCEDURE: EGD WITH PEG TUBE PLACEMENT - [id number] SURGEON: Yo Santamaria M.D. FACS AIRPORT GUIDE: None DEPT: WLucía PROVIDER: [id number] Santamaria MD POS: [id number] DIAGNOSIS: (K56.609) SBO (small bowel obstruction) (HCC) (primary encounter diagnosis) ASA CLASS: 3 - Severe FINDINGS: COMPLICATIONS: None PMHx - PAST MEDICAL HISTORY Diagnosis Date - Cancer of cecum (HCC) 01/2017 COMORBIDITIES - Current Cancer Therapy Post Op Occurrences - None Wound Classification - Clean Contaminated Operative note dictated in the [facility] dictation system. Simon Santamaria MD Encounter Status:Closed by SIMON SANTAMARIA MD on 09/17/18 BASIC METABOLIC Collected: 09/16/2018 Status: F Source: [place] PROFILE (BMP) 6:02 AM [facility] REPOSITORY TYPE CODE TESTS RESULT OUT [...] GAP 8 Performed By: #### L500.2500 #### [facility] [address] [facility] [place], [address] ABD INC DECUB Observed: 09/16/2018 Status: F Source: IGOR AND/OR ERECT 12:00 AM [facility] REPOSITORY [facility] Imaging Services [address] [place] [address] Abd Inc Decub and/or Erect MR#: [id number] Acct: [id number] Name: AYUSHSIMON Lindsay Rep #: [id number] : 1955 M 62 From: Eliu Nice MD PCP: Care Physician, No Primary Status: ADM IN Study: Abd Inc Decub and/or Erect Date of Exam: 09/16/18 Exam# [id number] Ordering Dr: Simon Santamaria MD STUDY: X-RAY [...] No Primary Care Physician; Simon Santamaria MD Die Cast Operator: Signed BEDSIDE GLUCOSE Collected: 09/15/2018 Status: F Source: IGOR 12:53 PM [facility] REPOSITORY TYPE CODE TESTS RESULT OUT OF REFERENCE UNITS RANGE LAB L501.080 70-110 mg/dL High BEDSIDE GLU 136 Result Comment: MANAGEMENT OF PATIENT CARE PER NURSING PROTOCOL Performed By: #### L501.080 #### [facility] Point of Care [address] [place] [address] BEDSIDE GLUCOSE Collected: 09/15/2018 Status: F Source: IGOR 6:07 AM [facility] REPOSITORY TYPE CODE TESTS RESULT OUT OF REFERENCE UNITS RANGE LAB L501.080 70-110 mg/dL High BEDSIDE GLU 126 Result Comment: MANAGEMENT OF PATIENT CARE PER NURSING PROTOCOL Performed By: #### L501.080 #### [facility] Point of Care [address] [place] [address] BASIC METABOLIC Collected: 09/15/2018 Status: F Source: IGOR PROFILE (BMP) 5:22 AM [facility] REPOSITORY Order Comment: SPECIMEN OBTAINED FROM [...] By: #### L500.2500, L500.4050, L501.2300, L501.5200 #### [facility] [address] [place], [address] COMPREHENSIVE METABOLIC Collected: 09/15/2018 Status: F Source: [facility] 5:22 AM [facility] REPOSITORY Order Comment: SPECIMEN OBTAINED FROM [...] By: #### L500.2500, L500.4050, L501.2300, L501.5200 #### [facility] [address] [facility] [place], [place], [id number] PHOSPHORUS Collected: 09/15/2018 Status: F Source: [place] 5:22 AM [facility] REPOSITORY Order Comment: SPECIMEN OBTAINED FROM LINE DRAW TYPE CODE TESTS RESULT OUT OF RANGE REFERENCE UNITS LAB L501.2300 2.5-4.9 mg/dL Normal PHOS 3.3 Performed By: #### L500.2500, L500.4050, L501.2300, L501.5200 #### [facility] [address] [facility] [place], [place], [id number] MAGNESIUM Collected: 09/15/2018 Status: F Source: [place] 5:22 AM [facility] REPOSITORY Order Comment: SPECIMEN OBTAINED FROM LINE DRAW TYPE CODE TESTS RESULT OUT OF RANGE REFERENCE UNITS LAB L501.5200 1.6-2.6 mg/dL Normal MG 2.0 Performed By: #### L500.2500, L500.4050, L501.2300, L501.5200 #### [facility] [address] [place], [place], [id number] CBC W/DIFF, AUTOMATED Collected: 09/15/2018 Status: F Source: IGOR 5:22 AM [facility] REPOSITORY TYPE CODE TESTS RESULT OUT [...] Lymph 1.34 Performed By: #### L100.0100 #### [facility] [address] [place], [address] BEDSIDE GLUCOSE Collected: 09/15/2018 Status: F Source: IGOR 12:24 AM [facility] REPOSITORY TYPE CODE TESTS RESULT OUT OF REFERENCE UNITS RANGE LAB L501.080 70-110 mg/dL High BEDSIDE GLU 139 Result Comment: MANAGEMENT OF PATIENT CARE PER NURSING PROTOCOL Performed By: #### L501.080 #### [facility] Point of Care [address] [place] [address] BEDSIDE GLUCOSE Collected: 09/14/2018 Status: F Source: [place] 6:02 PM [facility] REPOSITORY TYPE CODE TESTS RESULT OUT OF REFERENCE UNITS RANGE LAB L501.080 70-110 mg/dL High BEDSIDE GLU 118 Result Comment: MANAGEMENT OF PATIENT CARE PER NURSING PROTOCOL Performed By: #### L501.080 #### [facility] Point of Care [address] [place] [address] ABDOMEN SINGLE VIEW Observed: 09/14/2018 Status: F Source: [place] 5:11 PM [facility] REPOSITORY [facility] Imaging Services [address] [place] [address] Abdomen Single View MR#: [id number] Acct: [id number] Name: SIMON PEACOCK Rep #: [id number] : 1955 M 62 From: Colten Benitez MD PCP: Care Physician, No Primary Status: ADM IN Study: Abdomen Single View Date of Exam: 09/14/18 Exam# [id number] Ordering Dr: Simon Santamaria MD STUDY: X-RAY [...] No Primary Care Physician; Simon Santamaria MD Die Cast Operator: Signed BEDSIDE GLUCOSE Collected: 09/14/2018 Status: F Source: IG[place] 11:38 AM [facility] REPOSITORY TYPE CODE TESTS RESULT OUT OF REFERENCE UNITS RANGE LAB L501.080 70-110 mg/dL High BEDSIDE GLU 132 Result Comment: MANAGEMENT OF PATIENT CARE PER NURSING PROTOCOL Performed By: #### L501.080 #### [facility] Point of Care [address] [facility] [address] ABDOMEN SINGLE VIEW Observed: 09/14/2018 Status: F Source: IGOR 9:18 AM [facility] REPOSITORY [facility] Imaging Services [address] [place] [address] Abdomen Single View MR#: [id number] Acct: [id number] Name: SIMON PEACOCK Rep #: [id number] : 1955 62 From: Gualberto Boucher DO PCP: Care Physician, No Primary Status: ADM IN Study: Abdomen Single View Date of Exam: 09/14/18 Exam# [id number] Ordering Dr: Simon Santamaria MD STUDY: X-RAY [...] No Primary Care Physician; Simon Santamaria MD Die Cast Operator: Signed BEDSIDE GLUCOSE Collected: 09/14/2018 Status: F Source: IG[place] 6:25 AM [facility] REPOSITORY TYPE CODE TESTS RESULT OUT OF REFERENCE UNITS RANGE LAB L501.080 70-110 mg/dL High BEDSIDE GLU 120 Result Comment: MANAGEMENT OF PATIENT CARE PER NURSING PROTOCOL Performed By: #### L501.080 #### [facility] Point of Care [address] [place], [place] [id number] BASIC METABOLIC Collected: 09/14/2018 Status: F Source: [place] PROFILE (BMP) 5:15 AM [facility] REPOSITORY TYPE CODE TESTS RESULT OUT [...] Performed By: #### L500.2500, L501.2300, L501.5200 #### [facility] [address] [place], [address] PHOSPHORUS Collected: 09/14/2018 Status: F Source: IGOR 5:15 AM [facility] REPOSITORY TYPE CODE TESTS RESULT OUT OF RANGE REFERENCE UNITS LAB L501.2300 2.5-4.9 mg/dL Normal PHOS 3.4 Performed By: #### L500.2500, L501.2300, L501.5200 #### [facility] [address] [place], [address] MAGNESIUM Collected: 09/14/2018 Status: F Source: IGOR 5:15 AM [facility] REPOSITORY TYPE CODE TESTS RESULT OUT OF RANGE REFERENCE UNITS LAB L501.5200 1.6-2.6 mg/dL Normal MG 2.1 Performed By: #### L500.2500, L501.2300, L501.5200 #### [facility] [address] [place], [address] BEDSIDE GLUCOSE Collected: 09/14/2018 Status: F Source: IGOR 12:20 AM [facility] REPOSITORY TYPE CODE TESTS RESULT OUT OF REFERENCE UNITS RANGE LAB L501.080 70-110 mg/dL High BEDSIDE GLU 134 Result Comment: MANAGEMENT OF PATIENT CARE PER NURSING PROTOCOL Performed By: #### L501.080 #### [facility] Point of Care [address] [place] [address] BEDSIDE GLUCOSE Collected: 09/13/2018 Status: F Source: IGOR 5:26 PM [facility] REPOSITORY TYPE CODE TESTS RESULT OUT OF REFERENCE UNITS RANGE LAB L501.080 70-110 mg/dL High BEDSIDE GLU 122 Result Comment: MANAGEMENT OF PATIENT CARE PER NURSING PROTOCOL Performed By: #### L501.080 #### [facility] Point of Care [address] [place] [address] BEDSIDE GLUCOSE Collected: 09/13/2018 Status: F Source: IGOR 11:31 AM [facility] REPOSITORY TYPE CODE TESTS RESULT OUT OF RANGE REFERENCE UNITS LAB L501.080 70-110 mg/dL Normal BEDSIDE GLU 106 Result Comment: MANAGEMENT OF PATIENT CARE PER NURSING PROTOCOL Performed By: #### L501.080 #### [facility] Point of Care [address] [place] [address] ABD INC DECUB Observed: 09/13/2018 Status: F Source: IGOR AND/OR ERECT 9:17 AM [facility] REPOSITORY [facility] Imaging Services [address] [place] [address] Abd Inc Decub and/or Erect MR#: [id number] Acct: [id number] Name: SIMON PEACOCK Rep #: [id number] : 1955 M 62 From: Sarah Salgado MD PCP: Care Physician, No Primary Status: ADM IN Study: Abd Inc Decub and/or Erect Date of Exam: 09/13/18 Exam# [id number] Ordering Dr: Simon Santamaria MD STUDY: X-RAY [...] No Primary Care Physician; Simon Santamaria MD Die Cast Operator: Signed BEDSIDE GLUCOSE Collected: 09/13/2018 Status: F Source: IGOR 6:18 AM [facility] REPOSITORY TYPE CODE TESTS RESULT OUT OF REFERENCE UNITS RANGE LAB L501.080 70-110 mg/dL High BEDSIDE GLU 133 Result Comment: MANAGEMENT OF PATIENT CARE PER NURSING PROTOCOL Performed By: #### L501.080 #### [facility] Point of Care [address] [place] [address] BEDSIDE GLUCOSE Collected: 09/13/2018 Status: F Source: [place] 12:00 AM [facility] REPOSITORY TYPE CODE TESTS RESULT OUT OF REFERENCE UNITS RANGE LAB L501.080 70-110 mg/dL High BEDSIDE GLU 141 Result Comment: MANAGEMENT OF PATIENT CARE PER NURSING PROTOCOL Performed By: #### L501.080 #### [facility] Point of Care [address] [place] [address] BEDSIDE GLUCOSE Collected: 09/12/2018 Status: F Source: [place] 6:12 PM [facility] REPOSITORY TYPE CODE TESTS RESULT OUT OF REFERENCE UNITS RANGE LAB L501.080 70-110 mg/dL High BEDSIDE GLU 140 Result Comment: MANAGEMENT OF PATIENT CARE PER NURSING PROTOCOL Performed By: #### L501.080 #### [facility] Point of Care [address] [place] [address] PROGRESS Observed: 09/12/2018 Status: COMPLETED Source: [place] 7:13 AM [facility] REPOSITORY HNO ID: [id number] Author: Simon Santamaria Service: (none) Author Type: Physician Type: Progress Notes Filed: 09/13/2018 9:21 AM Note Text: OPERATIVE NOTATION FOR [facility] SURGICAL PROCEDURE. September 08, 2018 Simon Peacock 1955 [id number] male PROCEDURE: Diagnostic Laparoscopy - 25410, Laparotomy Lysis of Adhesions - 92182 and Laparotomy - Resection of Small Bowel - 84454 SURGEON: Yo Santamaria M.D. FACS AIRPORT GUIDE: None DEPT: WQ PROVIDER: [id number] Santamaria MD POS: [id number] DIAGNOSIS: (C18.0) Primary cancer of cecum (HCC) (primary encounter diagnosis) (K56.609) SBO (small bowel obstruction) (HCC) ASA CLASS: 3 - Severe FINDINGS: dense adhesions COMPLICATIONS: None PMHx - PAST MEDICAL HISTORY Diagnosis Date - Cancer of cecum (HCC) 01/2017 COMORBIDITIES - Current Cancer Therapy Post Op Occurrences - None Wound Classification - Clean Contaminated Operative note dictated in the [facility] dictation system. Simon Santamaria MD BEDSIDE GLUCOSE Collected: 09/12/2018 Status: F Source: [place] 6:55 AM [facility] REPOSITORY TYPE CODE TESTS RESULT OUT OF REFERENCE UNITS RANGE LAB L501.080 70-110 mg/dL High BEDSIDE GLU 154 Result Comment: MANAGEMENT OF PATIENT CARE PER NURSING PROTOCOL Performed By: #### L501.080 #### [facility] [address] [place], [place] [address] CBC W/DIFF, AUTOMATED Collected: 09/12/2018 Status: F Source: [place] 6:37 AM [facility] REPOSITORY TYPE CODE TESTS RESULT OUT [...] Lymph 0.68 Performed By: #### L100.0100 #### [facility] [address] [place], [address] BASIC METABOLIC Collected: 09/12/2018 Status: F Source: [place] PROFILE (BMP) 6:37 AM [facility] REPOSITORY TYPE CODE TESTS RESULT OUT [...] GAP 8 Performed By: #### L500.2500 #### [facility] [address] [place], [place], [address] BEDSIDE GLUCOSE Collected: 09/12/2018 Status: F Source: IGOR 12:03 AM [facility] REPOSITORY TYPE CODE TESTS RESULT OUT OF REFERENCE UNITS RANGE LAB L501.080 70-110 mg/dL High BEDSIDE GLU 155 Result Comment: MANAGEMENT OF PATIENT CARE PER NURSING PROTOCOL Performed By: #### L501.080 #### [facility] Point of Care [address] [place], [place] [address] BEDSIDE GLUCOSE Collected: 09/11/2018 Status: F Source: [place] 6:21 PM [facility] REPOSITORY TYPE CODE TESTS RESULT OUT OF REFERENCE UNITS RANGE LAB L501.080 70-110 mg/dL High BEDSIDE GLU 146 Result Comment: MANAGEMENT OF PATIENT CARE PER NURSING PROTOCOL Performed By: #### L501.080 #### [facility] Point of Care [address] [place], [place] [address] BEDSIDE GLUCOSE Collected: 09/11/2018 Status: F Source: [place] 12:08 PM [facility] REPOSITORY TYPE CODE TESTS RESULT OUT OF REFERENCE UNITS RANGE LAB L501.080 70-110 mg/dL High BEDSIDE GLU 149 Result Comment: MANAGEMENT OF PATIENT CARE PER NURSING PROTOCOL Performed By: #### L501.080 #### [facility] Point of Care [address] [place] [address] CBC W/DIFF, AUTOMATED Collected: 09/11/2018 Status: F Source: IG[place] 6:55 AM [facility] REPOSITORY TYPE CODE TESTS RESULT OUT [...] Lymph 0.57 Performed By: #### L100.0100 #### [facility] [place], [address] BASIC METABOLIC Collected: 09/11/2018 Status: F Source: [place] PROFILE ([facility]) 6:55 AM [facility] REPOSITORY TYPE CODE TESTS RESULT OUT [...] 8 Performed By: #### L500.2500, L501.5200 #### [facility] [address] [place], [address] MAGNESIUM Collected: 09/11/2018 Status: F Source: [place] 6:55 AM [facility] REPOSITORY TYPE CODE TESTS RESULT OUT OF RANGE REFERENCE UNITS LAB L501.5200 1.6-2.6 mg/dL Normal MG 1.9 Performed By: #### L500.2500, L501.5200 #### [facility] [address] [place], [address] BEDSIDE GLUCOSE Collected: 09/11/2018 Status: F Source: [place] 6:16 AM [facility] REPOSITORY TYPE CODE TESTS RESULT OUT OF REFERENCE UNITS RANGE LAB L501.080 70-110 mg/dL High BEDSIDE GLU 146 Result Comment: MANAGEMENT OF PATIENT CARE PER NURSING PROTOCOL Performed By: #### L501.080 #### [facility] Point of Care [address] [facility] [place] [address] BEDSIDE GLUCOSE Collected: 09/11/2018 Status: F Source: [place] 12:43 AM [facility] REPOSITORY TYPE CODE TESTS RESULT OUT OF REFERENCE UNITS RANGE LAB L501.080 70-110 mg/dL High BEDSIDE GLU 125 Result Comment: MANAGEMENT OF PATIENT CARE PER NURSING PROTOCOL Performed By: #### L501.080 #### [facility] Point of Care [address] [place] [address] BEDSIDE GLUCOSE Collected: 09/10/2018 Status: F Source: [place] 6:04 PM [facility] REPOSITORY TYPE CODE TESTS RESULT OUT OF REFERENCE UNITS RANGE LAB L501.080 70-110 mg/dL High BEDSIDE GLU 130 Result Comment: MANAGEMENT OF PATIENT CARE PER NURSING PROTOCOL Performed By: #### L501.080 #### [facility] Point of Care [address] [place] [address] CHEST 1 VIEW Observed: 09/10/2018 Status: F Source: [place] (PORTABLE) 2:29 PM [facility] REPOSITORY [facility] Imaging Services [address] [place] [address] Chest 1 View (Portable) MR#: [id number] Acct: [id number] Name: SIMON PEACOCK Lindsay Rep #: [id number] : 1955 62 From: Christiane Sanderson MD PCP: Care Physician, No Primary Status: ADM IN Study: Chest 1 View (Portable) Date of Exam: 09/10/18 Exam# [id number] Ordering Dr: Akira Joy MD STUDY: X-RAY [...] , CC: No Primary Care Physician; Akira Joy MD Die Cast Operator: Signed 12 LEAD ELECTROCARDIOGRAM Observed: 09/10/2018 Status: F Source: IGOR 2:15 PM [facility] REPOSITORY [facility] Cardiovascular Services [address] [place], [place] [address] [address] 12 Lead EKG 09/08/18 0808 MR#: [id number] Acct: [id number] Name: SIMON PEACOCK Rep #: [id number] : 1955 62 From: Oren Hogan MD Attending Dr: Akira Joy MD Status: ADM IN Ordering Dr: Akira Joy MD Date: 09/08/18 Location: [facility] Sex: M C Admitted: 09/03/18 Test Reason [...] Confirmed by OREN HOGAN MD ([id number]), editor greeting card MIKALA NICOLE ([id number]) on 09/10/2018 2:15:37 PM Referred By: Josep Allen Confirmed By:OREN HOGAN MD 09/10/18 1415 Date Oren Hogan MD CC: No Primary Care Physician; Josep Allen MD; Akira Joy MD Signed BEDSIDE GLUCOSE Collected: 09/10/2018 Status: F Source: IGOR 12:22 PM [facility] REPOSITORY TYPE CODE TESTS RESULT OUT OF REFERENCE UNITS RANGE LAB L501.080 70-110 mg/dL High BEDSIDE GLU 147 Result Comment: MANAGEMENT OF PATIENT CARE PER NURSING PROTOCOL Performed By: #### L501.080 #### [facility] Laboratory Point of Care [address] [place], [place] [address] BEDSIDE GLUCOSE Collected: 09/10/2018 Status: F Source: B[place] 7:08 AM [facility] REPOSITORY TYPE CODE TESTS RESULT OUT OF REFERENCE UNITS RANGE LAB L501.080 70-110 mg/dL High BEDSIDE GLU 158 Result Comment: MANAGEMENT OF PATIENT CARE PER NURSING PROTOCOL Performed By: #### L501.080 #### [facility] Laboratory Point of Care [address] [facility] [place] [address] CBC W/DIFF, AUTOMATED Collected: 09/10/2018 Status: F Source: [place] 6:30 AM [facility] REPOSITORY TYPE CODE TESTS RESULT OUT [...] Lymph 0.56 Performed By: #### L100.0100 #### [facility] Laboratory [address] [facility] [place], [address] BASIC METABOLIC Collected: 09/10/2018 Status: F Source: [place] PROFILE (BMP) 6:30 AM [facility] REPOSITORY TYPE CODE TESTS RESULT OUT [...] GAP 7 Performed By: #### L500.2500 #### [facility] Laboratory [address] [facility] [place], [address] LIVER PROFILE Collected: 09/10/2018 Status: F Source: IGOR 6:30 AM [facility] REPOSITORY TYPE CODE TESTS RESULT OUT [...] BILI 0.16 Performed By: #### L500.3400 #### [facility] Laboratory [address], [address] BEDSIDE GLUCOSE Collected: 09/10/2018 Status: F Source: IGOR 12:21 AM [facility] REPOSITORY TYPE CODE TESTS RESULT OUT OF REFERENCE UNITS RANGE LAB L501.080 70-110 mg/dL High BEDSIDE GLU 150 Result Comment: MANAGEMENT OF PATIENT CARE PER NURSING PROTOCOL Performed By: #### L501.080 #### [facility] Laboratory Point of Care [address] [place] [address] BEDSIDE GLUCOSE Collected: 09/09/2018 Status: F Source: IGOR 5:34 PM [facility] REPOSITORY TYPE CODE TESTS RESULT OUT OF REFERENCE UNITS RANGE LAB L501.080 70-110 mg/dL High BEDSIDE GLU 154 Result Comment: MANAGEMENT OF PATIENT CARE PER NURSING PROTOCOL Performed By: #### L501.080 #### [facility] Laboratory Point of Care [address] [facility] [address] BEDSIDE GLUCOSE Collected: 09/09/2018 Status: F Source: IGOR 11:22 AM [facility] REPOSITORY TYPE CODE TESTS RESULT OUT OF REFERENCE UNITS RANGE LAB L501.080 70-110 mg/dL High BEDSIDE GLU 183 Result Comment: MANAGEMENT OF PATIENT CARE PER NURSING PROTOCOL Performed By: #### L501.080 #### [facility] Laboratory Point of Care [address] [place] [address] CBC W/DIFF, AUTOMATED Collected: 09/09/2018 Status: F Source: [place] 6:40 AM [facility] REPOSITORY TYPE CODE TESTS RESULT OUT [...] Lymph 0.59 Performed By: #### L100.0100 #### [facility] Laboratory [address] [place], [address] COMPREHENSIVE METABOLIC Collected: 09/09/2018 Status: F Source: IGOR DOCKERY 6:40 AM [facility] REPOSITORY TYPE CODE TESTS RESULT OUT [...] Performed By: #### L500.4050, L501.2300, L501.5200 #### [facility] Laboratory [address] [place], [address] PHOSPHORUS Collected: 09/09/2018 Status: F Source: IGOR 6:40 AM [facility] REPOSITORY TYPE CODE TESTS RESULT OUT OF RANGE REFERENCE UNITS LAB L501.2300 2.5-4.9 mg/dL Normal PHOS 2.6 Performed By: #### L500.4050, L501.2300, L501.5200 #### [facility] Laboratory [address] [place], [address] MAGNESIUM Collected: 09/09/2018 Status: F Source: IGOR 6:40 AM [facility] REPOSITORY TYPE CODE TESTS RESULT OUT OF RANGE REFERENCE UNITS LAB L501.5200 1.6-2.6 mg/dL Normal MG 1.7 Performed By: #### L500.4050, L501.2300, L501.5200 #### [facility] Laboratory [address] [place], [address] BEDSIDE GLUCOSE Collected: 09/09/2018 Status: F Source: IGOR 5:34 AM [facility] REPOSITORY TYPE CODE TESTS RESULT OUT OF REFERENCE UNITS RANGE LAB L501.080 70-110 mg/dL High BEDSIDE GLU 183 Result Comment: MANAGEMENT OF PATIENT CARE PER NURSING PROTOCOL Performed By: #### L501.080 #### [facility] Laboratory Point of Care [address] [place] [address] BEDSIDE GLUCOSE Collected: 09/09/2018 Status: F Source: IGOR 12:12 AM [facility] REPOSITORY TYPE CODE TESTS RESULT OUT OF REFERENCE UNITS RANGE LAB L501.080 70-110 mg/dL High BEDSIDE GLU 198 Result Comment: MANAGEMENT OF PATIENT CARE PER NURSING PROTOCOL Performed By: #### L501.080 #### [facility] Laboratory Point of Care [address] [place] [address] BEDSIDE GLUCOSE Collected: 09/08/2018 Status: F Source: IGOR 7:52 PM [facility] REPOSITORY TYPE CODE TESTS RESULT OUT OF REFERENCE UNITS RANGE LAB L501.080 70-110 mg/dL High BEDSIDE GLU 148 Result Comment: MANAGEMENT OF PATIENT CARE PER NURSING PROTOCOL Performed By: #### L501.080 #### [facility] Laboratory Point of Care [address] [place] [address] OPERATIVE REPORT Observed: 09/08/2018 Status: F Source: [place] 6:59 PM [facility] REPOSITORY [facility] Medical Records Department [address] [place] [address] Operative Report 09/08/18 1719 MR#: [id number] Acct: [id number] Name: SIMON PEACOCK Lindsay Rep #: [id number] : 1955 62 From: Simon Santamaria MD PCP: Care Physician, No Primary Status: ADM IN Location: [place] [address] Report of Operation Date of Procedure: 09/08/18 Pre-Operative Diagnosis: SMALL BOWEL OBSTRUCTION Post-Operative Diagnosis: VERY DENSER ADHESIONS THROUGHOUT. NODULE INTRALOOP NEGATIVE FOR CARCINOMA, TRANSITION WITH CONCERN FOR COMPROMISED BOWEL Surgery/Procedure Performed:: LAPROSCOPIC CONVERTED TO OPEN EXPLORATY LAPAROTOMY, EXTENSIVE LYSIS OF ADHESIONS, REPAIR OF SINGLE ENTEROTOMY, SMALL BOWEL RESECTION Description of Surgical Findings:: ABOVE appliquer zigzag: Daphney Bahena Type of Anesthesia:: General Anesthesiologist: [...] 09/08/2018 Status: F Source: IGOR 11:30 AM [facility] REPOSITORY TYPE CODE TESTS RESULT OUT OF REFERENCE UNITS RANGE LAB L501.080 70-110 mg/dL High BEDSIDE GLU 140 Result Comment: MANAGEMENT OF PATIENT CARE PER NURSING PROTOCOL Performed By: #### L501.080 #### [facility] Laboratory [place] [address] PARTIAL THROMBOPLAST Collected: 09/08/2018 Status: F Source: IGOR TIME 8:10 AM [facility] REPOSITORY TYPE CODE TESTS RESULT OUT OF RANGE REFERENCE UNITS LAB L300.4310 24.1-36.2 Seconds Normal PTT 30.8 Performed By: #### L300.4310 #### [facility] Laboratory [address] [place], [place], [address] BEDSIDE GLUCOSE Collected: 09/08/2018 Status: F Source: [place] 5:52 AM [facility] REPOSITORY TYPE CODE TESTS RESULT OUT OF REFERENCE UNITS RANGE LAB L501.080 70-110 mg/dL High BEDSIDE GLU 151 Result Comment: MANAGEMENT OF PATIENT CARE PER NURSING PROTOCOL Performed By: #### L501.080 #### [facility] Laboratory Point of Care [address] [place] [address] CBC W/DIFF, AUTOMATED Collected: 09/08/2018 Status: F Source: B[place] 5:46 AM [facility] REPOSITORY TYPE CODE TESTS RESULT OUT [...] Lymph 0.63 Performed By: #### L100.0100 #### [facility] Laboratory [address] [facility] [place], [address] RENAL PROFILE Collected: 09/08/2018 Status: F Source: IGOR 5:46 AM [facility] REPOSITORY TYPE CODE TESTS RESULT OUT [...] CO2 27.0 Performed By: #### L500.3600 #### [facility] Laboratory [address] [place], [address] BEDSIDE GLUCOSE Collected: 09/08/2018 Status: F Source: [place] 12:22 AM [facility] REPOSITORY TYPE CODE TESTS RESULT OUT OF REFERENCE UNITS RANGE LAB L501.080 70-110 mg/dL High BEDSIDE GLU 147 Result Comment: MANAGEMENT OF PATIENT CARE PER NURSING PROTOCOL Performed By: #### L501.080 #### [facility] Laboratory Point of Care [address] [place] [address] CNOP Observed: 09/08/2018 Status: COMPLETED Source: [place] 12:00 AM [facility] REPOSITORY Operative Note (Enc) (GENSWS) Progress Notes: Simon Santamaria MD 09/13/2018 9:21 AM Signed OPERATIVE NOTATION FOR [facility] SURGICAL PROCEDURE. September 08, 2018 Simon Peacock 1955 [id number] male PROCEDURE: Diagnostic Laparoscopy - 48462, Laparotomy Lysis of Adhesions - 76531 and Laparotomy - Resection of Small Bowel - 41419 SURGEON: Yo Santamaria M.D. FACS AIRPORT GUIDE: None DEPT: WQ PROVIDER: I74=LczjgogSimon Santamaria MD POS: [id number] DIAGNOSIS: (C18.0) Primary cancer of cecum (HCC) (primary encounter diagnosis) (K56.609) SBO (small bowel obstruction) (HCC) ASA CLASS: 3 - Severe FINDINGS: dense adhesions COMPLICATIONS: None PMHx - PAST MEDICAL HISTORY Diagnosis Date - Cancer of cecum (HCC) 01/2017 COMORBIDITIES - Current Cancer Therapy Post Op Occurrences - None Wound Classification - Clean Contaminated Operative note dictated in the [facility] dictation system. Simon Santamaria MD Encounter Status:Closed by SIMON SANTAMARIA MD on 09/13/18 [facility] DECUB Observed: 09/08/2018 Status: F Source: IGOR AND/OR ERECT 12:00 AM [facility] REPOSITORY [facility] Imaging Services [address] [place] [address] Abd Inc Decub and/or Erect MR#: [id number] Acct: [id number] Name: SIMON PEACOCK Rep #: [id number] : 1955 M 62 From: Kole Craft MD PCP: Care Physician, No Primary Status: ADM IN Study: Abd Inc Decub and/or Erect Date of Exam: 09/08/18 Exam# [id number] Ordering Dr: Simon Santamaria MD STUDY: X-RAY [...] No Primary Care Physician; Simon Santamaria MD Die Cast Operator: Signed MASS (DEFINE AREA) Observed: 09/08/2018 Status: F Source: [place] 12:00 AM [facility] REPOSITORY Patient: SIMON PEACOCK : 1955 (62/M) Acct Num: [id number] Phys: Ashkan Mancia MD Unit Num: [id number] Loc: MS3 [id number] Specimen: [id number] Received: 09/08/18 - 5479 Spec Type: Mass TISSUES 1 TISSUES: A. [...] submitted after overnight fixation. / SJ: 09/09/18 Buffing Wheel Raker sections are submitted in seven cassettes as follows: 1 - staple line, 2 - resection margins, 3 AND 4 - indurated area on the serosal surface with underlying bowel wall, 5 - dilated segment of small bowel, 6 - nondilated segment of small bowel, 7 - mesenteric tissue. / SJ: 09/10/18 TC :5 CPT: 58333 x2, 18579, 89921, 69331 HEADER OPERATION: Exploratory laparoscopy converted to open [...] on file> Performed By: #### PMASS #### [facility] Laboratory [address] [facility] [address] [place], [place], [address] BEDSIDE GLUCOSE Collected: 09/07/2018 Status: F Source: IOGR 6:31 PM [facility] REPOSITORY TYPE CODE TESTS RESULT OUT OF REFERENCE UNITS RANGE LAB L501.080 70-110 mg/dL High BEDSIDE GLU 142 Result Comment: MANAGEMENT OF PATIENT CARE PER NURSING PROTOCOL Performed By: #### L501.080 #### [facility] Laboratory Point of Care [address] [place], [place] [address] BEDSIDE GLUCOSE Collected: 09/07/2018 Status: F Source: IGOR 12:44 PM [facility] REPOSITORY TYPE CODE TESTS RESULT OUT OF REFERENCE UNITS RANGE LAB L501.080 70-110 mg/dL High BEDSIDE GLU 152 Result Comment: MANAGEMENT OF PATIENT CARE PER NURSING PROTOCOL Performed By: #### L501.080 #### [facility] Laboratory Point of Care [address] [place] [address] CBC W/DIFF, AUTOMATED Collected: 09/07/2018 Status: F Source: IGOR 5:55 AM [facility] REPOSITORY TYPE CODE TESTS RESULT OUT [...] Lymph 1.06 Performed By: #### L100.0100 #### [facility] Laboratory [address] [place], [place], [address] RENAL PROFILE Collected: 09/07/2018 Status: F Source: B[place] 5:55 AM [facility] REPOSITORY TYPE CODE TESTS RESULT OUT [...] Performed By: #### L500.3600, L501.5200, L506.0500 #### [facility] Laboratory [address] [facility] [place], [place], [address] MAGNESIUM Collected: 09/07/2018 Status: F Source: B[place] 5:55 AM [facility] REPOSITORY TYPE CODE TESTS RESULT OUT OF RANGE REFERENCE UNITS LAB L501.5200 1.6-2.6 mg/dL Normal MG 2.0 Performed By: #### L500.3600, L501.5200, L506.0500 #### [facility] Laboratory [address] [place], [address] PREALBUMIN Collected: 09/07/2018 Status: F Source: [place] 5:55 AM [facility] REPOSITORY TYPE CODE TESTS RESULT OUT OF REFERENCE UNITS RANGE LAB L506.0500 20.0-40.0 mg/dL Low PREALBUMIN 15.5 Performed By: #### L500.3600, L501.5200, L506.0500 #### [facility] Laboratory [address] [place], [address] LIVER PROFILE Collected: 09/07/2018 Status: F Source: IGOR 5:55 AM [facility] REPOSITORY TYPE CODE TESTS RESULT OUT [...] BILI 0.15 Performed By: #### L500.3400 #### [facility] Laboratory [address] [facility] [place], [address] BEDSIDE GLUCOSE Collected: 09/07/2018 Status: F Source: IGOR 5:51 AM [facility] REPOSITORY TYPE CODE TESTS RESULT OUT OF REFERENCE UNITS RANGE LAB L501.080 70-110 mg/dL High BEDSIDE GLU 161 Result Comment: MANAGEMENT OF PATIENT CARE PER NURSING PROTOCOL Performed By: #### L501.080 #### [facility] Laboratory Point of Care [address] [place] [address] BEDSIDE GLUCOSE Collected: 09/07/2018 Status: F Source: IGOR 1:15 AM [facility] REPOSITORY TYPE CODE TESTS RESULT OUT OF REFERENCE UNITS RANGE LAB L501.080 70-110 mg/dL High BEDSIDE GLU 173 Result Comment: MANAGEMENT OF PATIENT CARE PER NURSING PROTOCOL Performed By: #### L501.080 #### [facility] Laboratory Point of Care [address] [place] [address] ABDOMEN SINGLE VIEW Observed: 09/07/2018 Status: F Source: IGOR (PORTABLE) 12:54 AM [facility] REPOSITORY [facility] Imaging Services [address] [place] [address] Abdomen Single View (Portable) MR#: [id number] Acct: [id number] Name: SIMON PEACOCK Rep #: [id number] : 1955 M 62 From: Kole Craft MD PCP: Care Physician, No Primary Status: ADM IN Study: Abdomen Single View (Portable) Date of Exam: 09/07/18 Exam# [id number] Ordering Dr: Simon Santamaria MD STUDY: X-RAY [...] No Primary Care Physician; Simon Santamaria MD Die Cast Operator: Signed ABDOMEN SINGLE VIEW Observed: 09/07/2018 Status: F Source: [place] (PORTABLE) 12:09 AM [facility] REPOSITORY [facility] Imaging Services [address] [place] [address] Abdomen Single View (Portable) MR#: [id number] Acct: [id number] Name: SIMON PEACOCK Rep #: [id number] : 1955 M 62 From: Kole Craft MD PCP: Care Physician, No Primary Status: ADM IN Study: Abdomen Single View (Portable) Date of Exam: 09/07/18 Exam# [id number] Ordering Dr: Simon Santamaria MD STUDY: X-RAY [...] No Primary Care Physician; Simon Santamaria MD Die Cast Operator: Signed ABD INC DECUB Observed: 09/07/2018 Status: F Source: IGOR AND/OR ERECT 12:01 AM [facility] REPOSITORY [facility] Imaging Services [address] [place] [address] Abd Inc Decub and/or Erect MR#: [id number] Acct: [id number] Name: SIMON PEACOCK Rep #: [id number] : 1955 M 62 From: Kole Craft MD PCP: Care Physician, No Primary Status: ADM IN Study: Abd Inc Decub and/or Erect Date of Exam: 09/07/18 Exam# [id number] Ordering Dr: Simon Santamaria MD STUDY: X-RAY [...] No Primary Care Physician; Simon Santamaria MD Die Cast Operator: Signed BEDSIDE GLUCOSE Collected: 09/06/2018 Status: F Source: IGOR 5:34 PM [facility] REPOSITORY TYPE CODE TESTS RESULT OUT OF REFERENCE UNITS RANGE LAB L501.080 70-110 mg/dL High BEDSIDE GLU 143 Result Comment: MANAGEMENT OF PATIENT CARE PER NURSING PROTOCOL Performed By: #### L501.080 #### [facility] Laboratory Point of Care [address] [place] [address] BEDSIDE GLUCOSE Collected: 09/06/2018 Status: F Source: IGOR 12:05 PM [facility] REPOSITORY TYPE CODE TESTS RESULT OUT OF REFERENCE UNITS RANGE LAB L501.080 70-110 mg/dL High BEDSIDE GLU 185 Result Comment: MANAGEMENT OF PATIENT CARE PER NURSING PROTOCOL Performed By: #### L501.080 #### [facility] Laboratory Point of Care [address] [place] [address] ABDOMEN/PEL W ORAL CONT Observed: 09/06/2018 Status: F Source: IGOR ONLY 7:33 AM [facility] REPOSITORY [facility] Imaging Services [address] [place] [address] Abdomen/Pel W ORAL Cont Only MR#: [id number] Acct: [id number] Name: SIMON PEACOCK Rep #: [id number] : 1955 M 62 From: Moo Trinh MD PCP: Care Physician, No Primary Status: ADM IN Study: Abdomen/Pel W ORAL Cont Only Date of Exam: 09/06/18 Exam# [id number] Ordering Dr: Simon Santamaria MD STUDY: CT [...] Moo Trinh MD at 11:00 EST Tel [phone], Service support , CC: No Primary Care Physician; Simon Santamaria MD Die Cast Operator: Signed CBC W/DIFF, AUTOMATED Collected: 09/06/2018 Status: F Source: IGOR 5:00 AM [facility] REPOSITORY TYPE CODE TESTS RESULT OUT [...] Lymph 0.70 Performed By: #### L100.0100 #### [facility] Laboratory [place], [address] RENAL PROFILE Collected: 09/06/2018 Status: F Source: IGOR 5:00 AM [facility] REPOSITORY TYPE CODE TESTS RESULT OUT [...] 28.0 Performed By: #### L500.3600, L500.4100 #### [facility] Laboratory [address] [place], [address] LIPID PROFILE Collected: 09/06/2018 Status: F Source: [place] 5:00 AM [facility] REPOSITORY TYPE CODE TESTS RESULT OUT [...] 16 Performed By: #### L500.3600, L500.4100 #### [facility] Laboratory [address] [facility] [place], [address] ABD INC DECUB Observed: 09/06/2018 Status: F Source: IGOR AND/OR ERECT 12:01 AM [facility] REPOSITORY [facility] Imaging Services [address] [facility] [place] [address] Abd Inc Decub and/or Erect MR#: [id number] Acct: [id number] Name: SIMON PEACOCK Rep #: [id number] : 1955 M 62 From: Kole Craft MD PCP: Care Physician, No Primary Status: ADM IN Study: Abd Inc Decub and/or Erect Date of Exam: 09/06/18 Exam# [id number] Ordering Dr: Simon Santamaria MD STUDY: X-RAY [...] noted on September 04, 2018 Electronically Signed: Kloe Craft MD at 6:02 EST Tel , Service support , CC: No Primary Care Physician; Simon Santamaria MD Die Cast Operator: Signed BASIC METABOLIC Collected: 09/05/2018 Status: F Source: IGOR PROFILE (BMP) 5:45 AM [facility] REPOSITORY TYPE CODE TESTS RESULT OUT [...] GAP 7 Performed By: #### L500.2500 #### [facility] Laboratory [address] [place], [address] ABD INC DECUB Observed: 09/05/2018 Status: F Source: IGOR AND/OR ERECT 12:00 AM [facility] REPOSITORY [facility] Imaging Services [address] [place] [address] Abd Inc Decub and/or Erect MR#: [id number] Acct: [id number] Name: SIMON PEACOCK Rep #: [id number] : 1955 M 62 From: Gabriel Castellanos MD PCP: Care Physician, No Primary Status: ADM IN Study: Abd Inc Decub and/or Erect Date of Exam: 09/05/18 Exam# [id number] Ordering Dr: Simon Santamaria MD STUDY: X-RAY [...] No Primary Care Physician; Simon Santamaria MD Die Cast Operator: Signed CONSULTATION Observed: 09/04/2018 Status: F Source: IGOR 8:18 AM [facility] REPOSITORY [facility] Medical Records Department [address] [place] [address] Consultation 09/04/18 0805 MR#: [id number] Acct: [id number] Name: SIMON PEACOCK Rep #: [id number] : 1955 62 From: Simon Santamaria MD PCP: Care Physician, No Primary Status: ADM IN Y Location: [facility] [id number] Reason for Consult Date of Consultation: 09/04/18 [...] fail to improve and he presented to [facility] emergency department Thursday night. The patient was [...] patient initially underwent laparoscopic right hemicolectomy at [facility]/ at [facility] on February 01, 2016 for a cecal cancer which was perforated. Pathology at that time demonstrated the tumor with 1 of 31 lymph nodes positive. Final pathologic stage was pT4a pN1a stage IIIB. The patient was started on chemotherapy but developed a sustained bowel obstruction. he was admitted again [facility] and on March 04, 2016 underwent exploratory [...] F Source: IGOR AND/OR ERECT 7:00 AM [facility] REPOSITORY [facility] [place] [address] Abd Inc Decub and/or Erect MR#: [id number] Acct: [id number] Name: SIMON PEACOCK Rep #: [id number] : 1955 M 62 From: Singh Ramos MD PCP: Care Physician, No Primary Status: ADM IN Study: Abd Inc Decub and/or Erect Date of Exam: 09/04/18 Exam# [id number] Ordering Dr: Simon Santamaria MD STUDY: X-RAY [...] No Primary Care Physician; Simon Santamaria MD Die Cast Operator: Signed CBC W/DIFF, AUTOMATED Collected: 09/04/2018 Status: F Source: IGOR 6:00 AM [facility] REPOSITORY Order Comment: SPECIMEN OBTAINED FROM [...] Lymph 0.56 Performed By: #### L100.0100 #### [facility] Laboratory [facility] [address] [place], [place], [id number] BASIC METABOLIC Collected: 09/04/2018 Status: F Source: IGOR PROFILE (BMP) 6:00 AM [facility] REPOSITORY Order Comment: SPECIMEN OBTAINED FROM [...] GAP 7 Performed By: #### L500.2500 #### [facility] Laboratory [address] [facility] [place], [address] HISTORY AND PHYSICAL Observed: 09/03/2018 Status: F Source: [place] EXAM 10:55 PM [facility] REPOSITORY [facility] Medical Records Department [address] [place] [address] History and Physical 09/03/181921 MR#: [id number] Acct: [id number] Name: SIMON PEACOCK Rep #: [id number] : 1955 62 From: Josep Allen MD PCP: Care Physician, No Primary Status: ADM IN Y Location: [facility] TW460-1 Problem List (1) Partial small bowel obstruction [...] heparin. Code Visit Inpatient E AND M: [id number] Init Hosp L3 09/03/18 6225 <Electronically signed by Josep Allen MD> Date Josep Allen MD Cosigner Signature: Date (if applicable) CC: No Primary Care Physician; Josep Allen MD Signed EMERGENCY DEPARTMENT Observed: 09/03/2018 Status: F Source: [place] SUMMARY 10:39 PM [facility] REPOSITORY [facility] Medical Records Department [address] [place] [address] Emergency Department Summary 09/03/18 1631 MR#: [id number] Acct: [id number] Name: AYUSHSIMON Lindsay Rep #: [id number] : 1955 62 From: Edu Yo DO PCP: Care Physician, No Primary Status: ADM IN - ER Visit Summary Date of Service: 09/03/18 Chief Complaint: Abdominal pain History of Present Illness: The patient is a 62 M who is concerned he may have a small bowel obstruction. 2015 the patient underwent partial colectomy at [facility] for colon cancer. He completed chemotherapy [...] bowel obstruction This note was generated with [employer] dictation software. It may contain incorrect words, [...] your Primary Care Provider. Call [facility] ([phone]) or report to the closest Emergency Room. Call 911 if necessary. 09/03/18 6717 <Electronically signed by Edu Yo DO> Date Edu Yo DO Cosigner Signature (If Indicated): Date CC: No Primary Care Physician ABDOMEN SINGLE VIEW Observed: 09/03/2018 Status: F Source: [place] (PORTABLE) 7:01 PM [facility] REPOSITORY [facility] Imaging Services [address] [place] [address] Abdomen Single View (Portable) MR#: [id number] Acct: [id number] Name: SIMON PEACOCK Rep #: [id number] : 1955 M 62 From: Angeli Franklin MD PCP: Care Physician, No Primary Status: ADM IN Study: Abdomen Single View (Portable) Date of Exam: 09/03/18 Exam# [id number] Ordering Dr: Edu Yo DO STUDY: X-RAY [...] No Primary Care Physician; Edu Yo DO Die Cast Operator: Signed CBC W/DIFF, AUTOMATED Collected: 09/03/2018 Status: F Source: [place] 5:01 PM [facility] REPOSITORY TYPE CODE TESTS RESULT OUT [...] Normal MACROCYTE Performed By: #### L100.0100 #### [facility] [address] [place], [address] COMPREHENSIVE METABOLIC Collected: 09/03/2018 Status: F Source: [facility] 5:01 PM [facility] REPOSITORY TYPE CODE TESTS RESULT OUT [...] 7 Performed By: #### L500.4050, L501.2450 #### [facility] [address] [address] [place], [place], [id number] LIPASE Collected: 09/03/2018 Status: F Source: [place] 5:01 PM [facility] REPOSITORY TYPE CODE TESTS RESULT OUT OF RANGE REFERENCE UNITS LAB L501.2450 73-393 U/L Normal LIPASE 293 Performed By: #### L500.4050, L501.2450 #### [facility] [address] [place], [place], [id number] LACTIC ACID Collected: 09/03/2018 Status: F Source: [place] 5:01 PM [facility] REPOSITORY Order Comment: Yes/No query for Sepsis Lactate Rule Y TYPE CODE TESTS RESULT OUT OF RANGE REFERENCE UNITS LAB L503.6005 0.4-2.0 mmol/L Normal LACTIC ACID 1.3 Performed By: #### L503.6005 #### [facility] [address] [place], [address] ABDOMEN/PELVIS WITH Observed: 09/03/2018 Status: F Source: [place] CONTRAST 4:32 PM [facility] REPOSITORY [facility] Imaging Services [address] [facility] [place] [address] Abdomen/Pelvis WITH Contrast MR#: [id number] Acct: [id number] Name: SIMON PEACOCK Rep #: [id number] : 1955 M 62 From: Emile Gasca MD PCP: Care Physician, No Primary Status: REG ER Study: Abdomen/Pelvis WITH Contrast Date of Exam: 09/03/18 Exam# [id number] Ordering Dr: Edu Yo DO STUDY: CT [...] No Primary Care Physician; Edu Yo DO Die Cast Operator: Signed IGOR ABS GR + CBC Collected: 08/17/2018 Status: F Source: [place] 11:00 AM [facility] REPOSITORY TYPE CODE TESTS RESULT OUT OF REFERENCE UNITS RANGE LAB WWBC 3.70-11.00 k/uL [place] WBC 5.39 LAB WRBC 4.20-6.00 m/uL [place] RBC 4.42 LAB WHGB 13.0-17.0 g/dL [place] Hemoglobin 14.8 LAB WHCT 39.0-51.0 % [place] Hematocrit 44.6 LAB WMCV 80.0-100.0 fL [place] High MCV 100.9 LAB WMCH 26.0-34.0 pg [place] MCH 33.5 LAB WMCHC 30.5-36.0 g/dL [place] MCHC 33.2 LAB WRDW 11.5-15.0 % [place] RDW 11.9 LAB WPLT 150-400 k/uL [place] Platelet Cnt 203 LAB WMPV 9.0-12.7 fL [place] MPV 9.9 Result Comment: Test performed at: [facility], [address] [place] [address] Rd[address] [place] [address]. LAB ABGRAN 1.45-7.50 k/uL Absol Gran 3.49 Count BASIC METABOLIC PANL Collected: 08/17/2018 Status: F Source: [place] 11:00 AM [facility] REPOSITORY TYPE CODE TESTS RESULT OUT [...] has been calibrated to be traceable to IDNV. An eGFR <60 mL/min/1.73m2 for >3 months is consistent with chronic kidney disease. Refer to KDOQI guidelines for clinical interpretation. In patients with unstable renal function, e.g. those with acute kidney injury, the eGFR may not accurately reflect actual GFR. HEPATIC FUNCTN PANEL Collected: 08/17/2018 Status: F Source: [place] 11:00 [facility] REPOSITORY TYPE CODE TESTS RESULT OUT OF REFERENCE UNITS RANGE LAB ALB 3.9-4.9 g/dL Albumin 4.2 LAB TBIL 0.2-1.3 mg/dL Bilirubin, Total 0.6 LAB CBIL <0.2 mg/dL Bilirubin,Conjuga <0.2 efra LAB ALKP 38-113 U/L Alkaline Phosphatase 64 LAB AST 14-40 U/L AST 23 LAB ALT 10-54 U/L ALT 17 LAB TP 6.3-8.0 g/dL Protein, Total 6.3 MAGNESIUM Collected: 08/17/2018 Status: F Source: [place] 11:00 [facility] REPOSITORY TYPE CODE TESTS RESULT OUT OF REFERENCE UNITS RANGE LAB MG 1.7-2.3 mg/dL Magnesium 2.1 TSH Collected: 08/17/2018 Status: F Source: [place] 11:00 [facility] REPOSITORY TYPE CODE TESTS RESULT OUT OF RANGE REFERENCE UNITS LAB TSH 0.400-5.500 uU/mL TSH 4.050 Performed By: #### TSH, CEA #### [facility] [address] [place], [place] [address] CEA Collected: 08/17/2018 Status: F Source: [place] 11:00 [facility] REPOSITORY TYPE CODE TESTS RESULT OUT OF RANGE REFERENCE UNITS LAB CEA 0.0-2.9 ng/mL High CEA 4.7 Result Comment: Test analyzed by the [employer] DxI method. Performed By: #### TSH, CEA #### [facility] [address] [place], [place] [address] PROGRESS Observed: 08/17/2018 Status: COMPLETED Source: [place] 9:57 AM [facility] REPOSITORY HNO ID: [id number] Author: Madison Randall RN, RN Service: (none) [...] intact. PROGRESS Observed: 08/17/2018 Status: COMPLETED Source: [place] 9:39 AM [facility] REPOSITORY HNO ID: [id number] Author: Yohan Ordoñez Service: (none) Author Type: [...] generalized hyperpigmentation has improved. No jaundice. 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 No focal motor [...] DO CNOVSP Observed: 08/17/2018 Status: COMPLETED Source: [place] 9:30 AM [facility] REPOSITORY Visit (SP) Office (GUSTABO) SIMON PEACOCK ([id number]) 1955 M Date Time Provider Department 08/17/18 [...] generalized hyperpigmentation has improved. No jaundice. 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 No focal motor [...] the patient have a history of Guillain ?Jackson Syndrome (a severe paralytic illness): No ? [...] provided: Yes ? See Immunization Form in [facility] for details of immunizations administered today. If patient reports dizziness, vision changes or ringing in the ears post vaccination ? please have patient sit or lie down for 15 minutes. 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 [...] 08/17/18 TSH Collected: 07/28/2018 Status: F Source: [place] 11:38 AM [facility] REPOSITORY TYPE CODE TESTS RESULT OUT OF RANGE REFERENCE UNITS LAB TSH 0.400-5.500 uU/mL TSH 4.090 Performed By: #### TSH, CEA #### [facility] [address] [address] CEA Collected: 07/28/2018 Status: F Source: [place] 11:38 AM [facility] REPOSITORY TYPE CODE TESTS RESULT OUT OF RANGE REFERENCE UNITS LAB CEA 0.0-2.9 ng/mL High CEA 4.4 Result Comment: Test analyzed by the Dina DxI method. Performed By: #### TSH, CEA #### [facility] [address] [address] BASIC METABOLIC PANL Collected: 07/28/2018 Status: F Source: [place] 11:37 AM [facility] REPOSITORY TYPE CODE TESTS RESULT OUT [...] FUNCTN PANEL Collected: 07/28/2018 Status: F Source: [place] 11:37 AM [facility] REPOSITORY TYPE CODE TESTS RESULT OUT [...] 6.0 MAGNESIUM Collected: 07/28/2018 Status: F Source: [place] 11:37 AM [facility] REPOSITORY TYPE CODE TESTS RESULT OUT OF REFERENCE UNITS RANGE LAB MG 1.7-2.3 mg/dL Magnesium 1.9 IGOR ABS GR + CBC Collected: 07/28/2018 Status: F Source: [place] 11:36 AM [facility] REPOSITORY TYPE CODE TESTS RESULT OUT OF REFERENCE UNITS RANGE LAB WWBC 3.70-11.00 k/uL [place] WBC 4.32 LAB WRBC 4.20-6.00 m/uL [place] RBC 4.22 LAB WHGB 13.0-17.0 g/dL [place] Hemoglobin 14.2 LAB WHCT 39.0-51.0 % [place] Hematocrit 42.7 LAB WMCV 80.0-100.0 fL [place] High MCV 101.2 LAB WMCH 26.0-34.0 pg [place] MCH 33.6 LAB WMCHC 30.5-36.0 g/dL [place] MCHC 33.3 LAB WRDW 11.5-15.0 % [place] RDW 11.9 LAB WPLT 150-400 k/uL [place] Platelet Cnt 180 LAB WMPV 9.0-12.7 fL [place] MPV 9.9 Result Comment: Test performed at: [facility], [address] [place] [address]. LAB ABGRAN 1.45-7.50 k/uL Absol Gran 2.54 Count PROGRESS Observed: 07/06/2018 Status: COMPLETED Source: [place] 9:16 AM [facility] REPOSITORY HNO ID: [id number] Author: Yohan Ordoñez Service: (none) Author Type: [...] generalized hyperpigmentation is stable. No jaundice. 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 No focal motor [...] + CBC Collected: 07/06/2018 Status: F Source: [place] 8:55 AM [facility] REPOSITORY TYPE CODE TESTS RESULT OUT OF REFERENCE UNITS RANGE LAB WWBC 3.70-11.00 k/uL [place] WBC 4.07 LAB WRBC 4.20-6.00 m/uL [place] RBC 4.37 LAB WHGB 13.0-17.0 g/dL [place] Hemoglobin 14.6 LAB WHCT 39.0-51.0 % [place] Hematocrit 44.0 LAB WMCV 80.0-100.0 fL [place] High MCV 100.7 LAB WMCH 26.0-34.0 pg [place] MCH 33.4 LAB WMCHC 30.5-36.0 g/dL [place] MCHC 33.2 LAB WRDW 11.5-15.0 % [place] RDW 11.9 LAB WPLT 150-400 k/uL [place] Platelet Cnt 210 LAB WMPV 9.0-12.7 fL [place] MPV 9.6 Result Comment: Test performed at: [facility], [address] [place] [address]. LAB ABGRAN 1.45-7.50 k/uL Absol Gran 2.48 Count BMP PLUS FHC Collected: 07/06/2018 Status: F Source: [place] 8:55 AM [facility] REPOSITORY TYPE CODE TESTS RESULT OUT [...] FUNCTN PANEL Collected: 07/06/2018 Status: F Source: [place] 8:55 AM [facility] REPOSITORY TYPE CODE TESTS RESULT OUT [...] Performed By: #### HFP, TSH, CEA #### [facility] [address] [place], [place] [address] TSH Collected: 07/06/2018 Status: F Source: [place] 8:55 AM [facility] REPOSITORY TYPE CODE TESTS RESULT OUT OF RANGE REFERENCE UNITS LAB TSH 0.400-5.500 uU/mL TSH 4.610 Performed By: #### HFP, TSH, CEA #### [facility] [address] [place], [place] [address] CEA Collected: 07/06/2018 Status: F Source: [place] 8:55 AM [facility] REPOSITORY TYPE CODE TESTS RESULT OUT OF RANGE REFERENCE UNITS LAB CEA 0.0-2.9 ng/mL High CEA 3.8 Result Comment: Test analyzed by the Dina DxI method. Performed By: #### HFP, TSH, CEA #### [facility] [address] [place], [place] [address] CNOVSP Observed: 07/06/2018 Status: COMPLETED Source: [place] 8:50 AM [facility] REPOSITORY Visit (SP) Office (HEMROCKY) SIMON PEACOCK ([id number]) 1955 M Date Time Provider Department 07/06/18 [...] generalized hyperpigmentation is stable. No jaundice. 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 No focal motor [...] above. 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 [address] [place], [place] [address] TSH Collected: 06/16/2018 Status: F Source: [place] 10:23 AM [facility] REPOSITORY TYPE CODE TESTS RESULT OUT OF RANGE REFERENCE UNITS LAB TSH 0.400-5.500 uU/mL TSH 3.700 Performed By: #### HFP, TSH, CEA #### [facility] [address] [place], [place] [address] CEA Collected: 06/16/2018 Status: F Source: [place] 10:23 AM [facility] REPOSITORY TYPE CODE TESTS RESULT OUT OF RANGE REFERENCE UNITS LAB CEA 0.0-2.9 ng/mL High CEA 4.4 Result Comment: Test analyzed by the Dina DxI method. Performed By: #### HFP, TSH, CEA #### [facility] [address] [place], [place] [address] BMP PLUS FHC Collected: 06/16/2018 Status: F Source: [place] 10:22 AM [facility] REPOSITORY TYPE CODE TESTS RESULT OUT [...] + CBC Collected: 06/16/2018 Status: F Source: [place] 10:22 AM [facility] REPOSITORY TYPE CODE TESTS RESULT OUT OF REFERENCE UNITS RANGE LAB WWBC 3.70-11.00 k/uL [place] WBC 4.45 LAB WRBC 4.20-6.00 m/uL Low [place] RBC 4.15 LAB WHGB 13.0-17.0 g/dL [place] Hemoglobin 13.8 LAB WHCT 39.0-51.0 % [place] Hematocrit 41.8 LAB WMCV 80.0-100.0 fL [place] High MCV 100.7 LAB WMCH 26.0-34.0 pg [place] MCH 33.3 LAB WMCHC 30.5-36.0 g/dL [place] MCHC 33.0 LAB WRDW 11.5-15.0 % [place] RDW 11.8 LAB WPLT 150-400 k/uL [place] Platelet Cnt 193 LAB WMPV 9.0-12.7 fL [place] MPV 10.4 Result Comment: Test performed at: [facility], [address] [place] [address] Rd[address] [place] [address]. LAB ABGRAN 1.45-7.50 k/uL Absol Gran 2.86 Count CEA Collected: 05/26/2018 Status: F Source: [place] 10:40 AM [facility] REPOSITORY TYPE CODE TESTS RESULT OUT OF RANGE REFERENCE UNITS LAB CEA 0.0-2.9 ng/mL High CEA 4.0 Result Comment: Test analyzed by the [employer] DxI method. Performed By: #### CEA #### [facility] [address] [address] IGOR ABS GR + CBC Collected: 05/25/2018 Status: F Source: [place] 11:53 AM [facility] REPOSITORY TYPE CODE TESTS RESULT OUT OF REFERENCE UNITS RANGE LAB WWBC 3.70-11.00 k/uL [place] WBC 3.82 LAB WRBC 4.20-6.00 m/uL Low [place] RBC 4.07 LAB WHGB 13.0-17.0 g/dL [place] Hemoglobin 13.7 LAB WHCT 39.0-51.0 % [place] Hematocrit 41.0 LAB WMCV 80.0-100.0 fL [place] High MCV 100.7 LAB WMCH 26.0-34.0 pg [place] MCH 33.7 LAB WMCHC 30.5-36.0 g/dL [place] MCHC 33.4 LAB WRDW 11.5-15.0 % [place] RDW 12.0 LAB WPLT 150-400 k/uL [place] Platelet Cnt 180 LAB WMPV 9.0-12.7 fL [place] MPV 10.0 Result Comment: Test performed at: [facility], [address] [place] [address]. LAB ABGRAN 1.45-7.50 k/uL Absol Gran 2.10 Count BMP PLUS FHC Collected: 05/25/2018 Status: F Source: [place] 11:53 AM [facility] REPOSITORY TYPE CODE TESTS RESULT OUT [...] FUNCTN PANEL Collected: 05/25/2018 Status: F Source: [place] 11:53 AM [facility] REPOSITORY TYPE CODE TESTS RESULT OUT [...] 5.9 Performed By: #### HFP, TSH #### [facility] [address] [place], [place] [address] TSH Collected: 05/25/2018 Status: F Source: [place] 11:53 AM [facility] REPOSITORY TYPE CODE TESTS RESULT OUT OF RANGE REFERENCE UNITS LAB TSH 0.400-5.500 uU/mL TSH 2.820 Performed By: #### HFP, TSH #### [facility] [address] [place], [place] [address] PROGRESS Observed: 05/25/2018 Status: COMPLETED Source: [place] 10:33 AM [facility] REPOSITORY HNO ID: [id number] Author: Rashmi Justin (Rn) RUBÉN Mccarthy Service: [...] drawn PROGRESS Observed: 05/25/2018 Status: COMPLETED Source: [place] 10:25 AM [facility] REPOSITORY HNO ID: [id number] Author: Yohan Ordoñez Service: (none) Author Type: [...] generalized hyperpigmentation is stable. No jaundice. 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 No focal motor [...] DO CNOVSP Observed: 05/25/2018 Status: COMPLETED Source: [place] 10:10 AM [facility] REPOSITORY Visit (SP) Office (HEMAWS) SIMON PEACOCK ([id number]) 1955 M Date Time Provider Department 05/25/18 [...] generalized hyperpigmentation is stable. No jaundice. 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] INVALID FOR* Dehydration [E86.0] INVALID FOR* CKD (chronic kidney disease) stage 2, GFR 60-89*INVALID FOR* Encounter Status:Closed by YOHAN ORDOÑEZ DO on 05/25/18 IGOR ABS GR + CBC Collected: 05/04/2018 Status: F Source: [place] 10:10 AM [facility] REPOSITORY TYPE CODE TESTS RESULT OUT OF REFERENCE UNITS RANGE LAB WWBC 3.70-11.00 k/uL [place] WBC 4.38 LAB WRBC 4.20-6.00 m/uL [place] RBC 4.22 LAB WHGB 13.0-17.0 g/dL [place] Hemoglobin 14.3 LAB WHCT 39.0-51.0 % [place] Hematocrit 41.2 LAB WMCV 80.0-100.0 fL [place] MCV 97.6 LAB WMCH 26.0-34.0 pg [place] MCH 33.9 LAB WMCHC 30.5-36.0 g/dL [place] MCHC 34.7 LAB WRDW 11.5-15.0 % [place] RDW 12.0 LAB WPLT 150-400 k/uL [place] Platelet Cnt 206 LAB WMPV 9.0-12.7 fL [place] MPV 9.5 Result Comment: Test performed at: [facility], [address] [place] [address] Rd[address] [place] [address]. LAB ABGRAN 1.45-7.50 k/uL Absol Gran 2.56 Count BMP PLUS FHC Collected: 05/04/2018 Status: F Source: [place] 10:10 AM [facility] REPOSITORY TYPE CODE TESTS RESULT OUT [...] FUNCTN PANEL Collected: 05/04/2018 Status: F Source: [place] 10:10 AM [facility] REPOSITORY TYPE CODE TESTS RESULT OUT [...] Performed By: #### HFP, TSH, CEA #### [facility] [address], [place] [address] TSH Collected: 05/04/2018 Status: F Source: [place] 10:10 AM [facility] REPOSITORY TYPE CODE TESTS RESULT OUT OF RANGE REFERENCE UNITS LAB TSH 0.400-5.500 uU/mL TSH 3.550 Performed By: #### HFP, TSH, CEA #### [facility] [address], [place] [address] CEA Collected: 05/04/2018 Status: F Source: [place] 10:10 AM [facility] REPOSITORY TYPE CODE TESTS RESULT OUT OF RANGE REFERENCE UNITS LAB CEA 0.0-2.9 ng/mL High CEA 5.7 Result Comment: Test analyzed by the [employer] DxI method. Performed By: #### HFP, TSH, CEA #### [facility] [address] [place], [place] [address] CNOVSP Observed: 04/12/2018 Status: COMPLETED Source: [place] 8:30 AM [facility] REPOSITORY Visit (SP) Office (HEMAWS) SIMON PEACOCK ([id number]) 1955 M Date Time Provider Department 04/12/18 [...] generalized hyperpigmentation is stable. No jaundice. 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 No jaundice. 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 No focal motor [...] + CBC Collected: 04/12/2018 Status: F Source: [place] 8:25 AM [facility] REPOSITORY TYPE CODE TESTS RESULT OUT OF REFERENCE UNITS RANGE LAB WWBC 3.70-11.00 k/uL [place] WBC 4.28 LAB WRBC 4.20-6.00 m/uL [place] RBC 4.33 LAB WHGB 13.0-17.0 g/dL [place] Hemoglobin 14.3 LAB WHCT 39.0-51.0 % [place] Hematocrit 43.3 LAB WMCV 80.0-100.0 fL [place] MCV 100.0 LAB WMCH 26.0-34.0 pg [place] MCH 33.0 LAB WMCHC 30.5-36.0 g/dL [place] MCHC 33.0 LAB WRDW 11.5-15.0 % [place] RDW 11.9 LAB WPLT 150-400 k/uL [place] Platelet Cnt 182 LAB WMPV 9.0-12.7 fL [place] MPV 9.7 Result Comment: Test performed at: [facility], [address] [place] [address] [address] [place] [address]. LAB ABGRAN 1.45-7.50 k/uL Absol Gran 2.86 Count BMP PLUS FHC Collected: 04/12/2018 Status: F Source: [place] 8:25 AM [facility] REPOSITORY TYPE CODE TESTS RESULT OUT [...] FUNCTN PANEL Collected: 04/12/2018 Status: F Source: [place] 8:25 AM [facility] REPOSITORY TYPE CODE TESTS RESULT OUT [...] Performed By: #### HFP, TSH, CEA #### [facility] [address] [place], [place] [address] TSH Collected: 04/12/2018 Status: F Source: [place] 8:25 AM [facility] REPOSITORY TYPE CODE TESTS RESULT OUT OF RANGE REFERENCE UNITS LAB TSH 0.400-5.500 uU/mL High TSH 5.580 Performed By: #### HFP, TSH, CEA #### [facility] [address] [address] CEA Collected: 04/12/2018 Status: F Source: [place] 8:25 AM [facility] REPOSITORY TYPE CODE TESTS RESULT OUT OF RANGE REFERENCE UNITS LAB CEA 0.0-2.9 ng/mL High CEA 3.3 Result Comment: Test analyzed by the [employer] DxI method. Performed By: #### HFP, TSH, CEA #### [facility] [address] [place], [place] [address] PROGRESS Observed: 04/06/2018 Status: COMPLETED Source: [place] 12:58 PM [facility] REPOSITORY HNO ID: [id number] Author: Sara Mchugh Service: (none) Author Type: [...] PERIPHERAL IV ACCESS: power port accessed by [employer] RADIOLOGY DEPARTMENT: CT; Exam(s) Completed: Chest Abdomen Pelvis SIGNED BY: Sara Crow Ct April 06, 2018 12:[address] ABD/PEL W IVCON Observed: 04/06/2018 Status: F Source: [place] 12:39 PM [facility] REPOSITORY * * *Final Report* * * DATE OF EXAM: Apr 06 2018 12:39PM [facility] 0530 - CT ABD/PEL W IVCON / [...] recurrent/metastatic disease in the abdomen or pelvis. Die Cast Operator: SHYLA Transcribe Date/Time: Apr 07 2018 8:19A Dictated by : GAGAN JOHNSON MD This examination was interpreted and the report reviewed and electronically signed by: GAGAN JOHNSON MD on Apr 07 2018 8:39AM EST [id number] CT CHEST W IVCON Observed: 04/06/2018 Status: F Source: [place] 12:39 PM [facility] REPOSITORY * * *Final Report* * * DATE OF EXAM: Apr 06 2018 12:39PM [facility] 0539 - CT CHEST W IVCON / [...] with no new nodules or lymphadenopathy seen. Die Cast Operator: SHYLA Transcribe Date/Time: Apr 07 2018 8:24A Dictated by : SHAKIRA CHAUDHRY MD This examination was interpreted and the report reviewed and electronically signed by: SHAKIRA CHAUDHRY MD on Apr 07 2018 9:19AM EST [id number] XR KNEE SPECIFY 1V Observed: 03/26/2018 Status: F Source: [facility] 9:30 AM [facility] [place] REPOSITORY * * *Final Report* * * [...] previous study.. IMPRESSION: No significant interval change.. Die Cast Operator: SHYLA Transcribe Date/Time: Mar 26 2018 1:44P Dictated by : EVE PINA DO This examination was interpreted and the report reviewed and electronically signed by: EVE PINA DO on Mar 26 2018 1:45PM EST [id number] PROGRESS Observed: 03/26/2018 Status: COMPLETED Source: [place] 9:24 AM [facility] REPOSITORY HNO ID: [id number] Author: Annita Ocampo Service: (none) Author Type: [...] AM PROGRESS Observed: 03/26/2018 Status: COMPLETED Source: [place] 9:19 AM [facility] REPOSITORY HNO ID: [id number] Author: Cory Mejia V Service: (none) Author [...] DO PROGRESS Observed: 03/26/2018 Status: COMPLETED Source: [place] 9:06 AM [facility] REPOSITORY HNO ID: [id number] Author: Nella Gomes Ma Service: (none) Author Type: (none) Type: Progress Notes Filed: 03/26/2018 9:45 AM Note Text: AMB ROOMING INTAKE FLOWSHEET DATA Risk Screening Do you have concerns about personal safety or safety in the home?: No CNOV Observed: 03/26/2018 Status: COMPLETED Source: [place] 9:00 AM [facility] REPOSITORY Office Visit (UC) SIMON PEACOCK ([id number]) 1955 M Date Time Provider Department 03/26/18 [...] Mejia DO Referring Provider: CORY MEJIA V [[id number]] Allergies As of Date: 03/26/2018 (No Known Allergies) Date Reviewed: 03/26/2018 Reviewed by: Nella Gomes Ma - Fully Assessed Reason for Visit: Established Patient [175] Cmt: 5 week 2 days post visit left patella fx Primary Visit Diagnosis:Closed nondisplaced fracture of left patella with routine healing, unspecified fracture morphology, subsequent encounter [S82.002D] Order(s):XR KNEE SPECIFY 1V LT [[id number]] Order #: [id number] FUTURE Prescriptions as of 03/26/2018 Sig: MAGNESIUM [...] [I95.1] INVALID FOR*06/19/2017 Pulmonary hypertension, secondary (HCC) [AYM669*INVALID FOR* Hypomagnesemia [E83.42] INVALID FOR* Hypotension, chronic [I95.89] INVALID FOR*06/19/2017 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 Similar to the previous study Die Cast Operator: PSCB Transcribe Date/Time: Mar 26 2018 1:42P Dictated by : EVE PINA DO This examination was interpreted and the report reviewed and electronically signed by: EVE PINA DO on Mar 26 2018 1:44PM EST [id number] PROGRESS Observed: 03/26/2018 Status: COMPLETED Source: [place] 8:41 AM [facility] REPOSITORY HNO ID: [id number] Author: Annita Ocampo Service: (none) Author Type: [...] + CBC Collected: 03/19/2018 Status: F Source: [place] 11:52 AM [facility] REPOSITORY TYPE CODE TESTS RESULT OUT OF REFERENCE UNITS RANGE LAB WWBC 3.70-11.00 k/uL [place] WBC 4.71 LAB WRBC 4.20-6.00 m/uL Low [place] RBC 4.18 LAB WHGB 13.0-17.0 g/dL [place] Hemoglobin 14.0 LAB WHCT 39.0-51.0 % [place] Hematocrit 42.1 LAB WMCV 80.0-100.0 fL [place] High MCV 100.7 LAB WMCH 26.0-34.0 pg [place] MCH 33.5 LAB WMCHC 30.5-36.0 g/dL [place] MCHC 33.3 LAB WRDW 11.5-15.0 % [place] RDW 11.7 LAB WPLT 150-400 k/uL [place] Platelet Cnt 197 LAB WMPV 9.0-12.7 fL [place] MPV 9.9 Result Comment: Test performed at: [facility], [address] [place] [address]. LAB ABGRAN 1.45-7.50 k/uL Absol Gran 2.78 Count BMP PLUS FHC Collected: 03/19/2018 Status: F Source: [place] 11:52 AM [facility] REPOSITORY TYPE CODE TESTS RESULT OUT [...] FUNCTN PANEL Collected: 03/19/2018 Status: F Source: [place] 11:52 AM [facility] REPOSITORY TYPE CODE TESTS RESULT OUT [...] Performed By: #### HFP, TSH, CEA #### [facility] [employer] [address] [address] TSH Collected: 03/19/2018 Status: F Source: [place] 11:52 AM [facility] REPOSITORY TYPE CODE TESTS RESULT OUT OF RANGE REFERENCE UNITS LAB TSH 0.400-5.500 uU/mL TSH 3.450 Performed By: #### HFP, TSH, CEA #### [facility] [address] [address] CEA Collected: 03/19/2018 Status: F Source: [place] 11:52 AM [facility] REPOSITORY TYPE CODE TESTS RESULT OUT OF RANGE REFERENCE UNITS LAB CEA 0.0-2.9 ng/mL High CEA 3.5 Result Comment: Test analyzed by the [employer] DxI method. Performed By: #### HFP, TSH, CEA #### [facility] [address] [address] PROGRESS Observed: 03/19/2018 Status: COMPLETED Source: [place] 11:46 AM [facility] REPOSITORY HNO ID: [id number] Author: Yohan Ordoñez Service: (none) Author Type: [...] generalized hyperpigmentation is stable. No jaundice. 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 No focal motor [...] DO CNOVSP Observed: 03/19/2018 Status: COMPLETED Source: [place] 11:40 AM [facility] REPOSITORY Visit (SP) Office ([place]) AYUSHSIMON ([id number]) 1955 M Date Time Provider Department 03/19/18 [...] generalized hyperpigmentation is stable. No jaundice. 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 No focal motor [...] Yohan Ordoñez DO Referring Provider: YOHAN ORDOÑEZ [[id number]] Allergies As of Date: 03/19/2018 (No Known [...] [I95.1] INVALID FOR*06/19/2017 Pulmonary hypertension, secondary (HCC) [SSH657*INVALID FOR* Hypomagnesemia [E83.42] INVALID FOR* Hypotension, chronic [...] ISTAT BMP Collected: 03/01/2018 Status: F Source: [place] 8:39 AM [facility] REPOSITORY TYPE CODE TESTS RESULT OUT [...] + CBC Collected: 03/01/2018 Status: F Source: [place] 8:39 AM [facility] REPOSITORY TYPE CODE TESTS RESULT OUT OF REFERENCE UNITS RANGE LAB WWBC 3.70-11.00 k/uL [place] WBC 4.50 LAB WRBC 4.20-6.00 m/uL Low [place] RBC 4.05 LAB WHGB 13.0-17.0 g/dL [place] Hemoglobin 13.8 LAB WHCT 39.0-51.0 % [place] Hematocrit 40.0 LAB WMCV 80.0-100.0 fL [place] MCV 98.8 LAB WMCH 26.0-34.0 pg [place] High MCH 34.1 LAB WMCHC 30.5-36.0 g/dL [place] MCHC 34.5 LAB WRDW 11.5-15.0 % [place] RDW 11.7 LAB WPLT 150-400 k/uL [place] Platelet Cnt 173 LAB WMPV 9.0-12.7 fL [place] MPV 10.6 Result Comment: Test performed at: [facility], [address] [place] [address] Rd[address] [place] [address]. LAB ABGRAN 1.45-7.50 k/uL Absol Gran 2.85 Count HEPATIC FUNCTN PANEL Collected: 03/01/2018 Status: F Source: [place] 8:39 AM [facility] REPOSITORY TYPE CODE TESTS RESULT OUT [...] Performed By: #### HFP, TSH, CEA #### [facility] [employer] [address], [place] [address] TSH Collected: 03/01/2018 Status: F Source: [place] 8:39 AM [facility] REPOSITORY TYPE CODE TESTS RESULT OUT OF RANGE REFERENCE UNITS LAB TSH 0.400-5.500 uU/mL TSH 3.940 Performed By: #### HFP, TSH, CEA #### [facility] [employer] [address], [place] [address] CEA Collected: 03/01/2018 Status: F Source: [place] 8:39 AM [facility] REPOSITORY TYPE CODE TESTS RESULT OUT OF RANGE REFERENCE UNITS LAB CEA 0.0-2.9 ng/mL CEA 2.7 Result Comment: Test analyzed by the [employer] DxI method. Performed By: #### HFP, TSH, CEA #### [facility] [address] [place], [place] [address] PROGRESS Observed: 03/01/2018 Status: COMPLETED Source: [place] 8:37 AM [facility] REPOSITORY HNO ID: [id number] Author: Yohan Ordoñez Service: (none) Author Type: [...] generalized hyperpigmentation is stable. No jaundice. 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 No focal motor [...] DO CNOVSP Observed: 03/01/2018 Status: COMPLETED Source: [place] 8:30 AM [facility] REPOSITORY Visit (SP) Office ([place]) SIMON PEACOCK ([id number]) 1955 M Date Time Provider Department 03/01/18 [...] generalized hyperpigmentation is stable. No jaundice. 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] Malignant neoplasm of ascending colon (HCC) [C18.2] Order(s):CT ABD/PEL W IVCON [[id number]] Order #: [id number] FUTURE CT CHEST W IVCON [[id number]] Order #: [id number] FUTURE iv contrast (will be provided with [...] [I95.1] INVALID FOR*06/19/2017 Pulmonary hypertension, secondary (HCC) [YIM089*INVALID FOR* Hypomagnesemia [E83.42] INVALID FOR* Hypotension, chronic [I95.89] INVALID FOR*06/19/2017 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] INVALID FOR* Encounter Status:Closed by YOHAN ORDOÑEZ DO on 03/01/18 PROGRESS Observed: 02/17/2018 Status: COMPLETED Source: [place] 10:19 AM [facility] REPOSITORY HNO ID: [id number] Author: Cory Mejia V Service: (none) Author [...] DO PROGRESS Observed: 02/17/2018 Status: COMPLETED Source: [place] 10:05 AM [facility] REPOSITORY HNO ID: [id number] Author: Nella Gomes Ma Service: (none) Author [...] brace) PROGRESS Observed: 02/17/2018 Status: COMPLETED Source: [place] 10:00 AM [facility] REPOSITORY HNO ID: [id number] Author: Megha Ash (Rt) Service: (none) Author Type: Neuropsychiatrist Type: Progress Notes Filed: 02/17/2018 10:00 AM [...] AM CARLY Observed: 02/17/2018 Status: COMPLETED Source: [place] 10:00 AM [facility] REPOSITORY Office Visit (UC) SIMON PEACOCK ([id number]) 1955 M Date Time Provider Department 02/17/18 [...] Mejia DO Referring Provider: CORY MEJIA V [[id number]] Allergies As of Date: 02/17/2018 (No Known [...] [I95.1] INVALID FOR*06/19/2017 Pulmonary hypertension, secondary (HCC) [KVM487*INVALID FOR* Hypomagnesemia [E83.42] INVALID FOR* Hypotension, chronic [I95.89] INVALID FOR*06/19/2017 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 IMPRESSION: NO CHANGE IN PATELLAR FRACTURE. 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 No jaundice. 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 No focal motor [...] FUNCTN PANEL Collected: 02/08/2018 Status: F Source: [place] 10:37 AM [facility] REPOSITORY TYPE CODE TESTS [...] 6.3 Performed By: #### HFP, CEA #### [facility] [address] [place], [place] [address] CEA Collected: 02/08/2018 Status: F Source: [place] 10:37 AM [facility] REPOSITORY TYPE CODE TESTS RESULT OUT OF RANGE REFERENCE UNITS LAB CEA 0.0-2.9 ng/mL CEA 2.6 Result Comment: Test analyzed by the [employer] DxI method. Performed By: #### HFP, CEA #### [facility] [employer] [address] [place], [place] [address] TSH Collected: 02/08/2018 Status: F Source: [place] 10:37 AM [facility] REPOSITORY TYPE CODE TESTS RESULT OUT OF RANGE REFERENCE UNITS LAB TSH 0.400-5.500 uU/mL TSH 3.620 Performed By: #### TSH #### [facility] [address] [id number] [facility] ISTAT BMP Collected: 02/08/2018 Status: F Source: [place] 10:36 AM [facility] REPOSITORY TYPE CODE TESTS RESULT OUT [...] + CBC Collected: 02/08/2018 Status: F Source: [place] 10:36 AM [facility] REPOSITORY TYPE CODE TESTS RESULT OUT OF REFERENCE UNITS RANGE LAB WWBC 3.70-11.00 k/uL [facility] WBC 4.65 LAB WRBC 4.20-6.00 m/uL [place] RBC 4.20 LAB WHGB 13.0-17.0 g/dL [place] Hemoglobin 13.9 LAB WHCT 39.0-51.0 % [facility] Hematocrit 42.3 LAB WMCV 80.0-100.0 fL [place] High MCV 100.7 LAB WMCH 26.0-34.0 pg [place] MCH 33.1 LAB WMCHC 30.5-36.0 g/dL [place] MCHC 32.9 LAB WRDW 11.5-15.0 % [facility] RDW 11.7 LAB WPLT 150-400 k/uL [place] Platelet Cnt 193 LAB WMPV 9.0-12.7 fL [place] MPV 9.9 Result Comment: Test performed at: [facility], [address] [place] [address]. LAB ABGRAN 1.45-7.50 k/uL Absol Gran 2.81 Count CNOVSP Observed: 02/08/2018 Status: COMPLETED Source: [place] 10:30 AM [facility] REPOSITORY Visit (SP) Office ([place]) SIMON PEACOCK ([id number]) 1955 M Date Time Provider Department 02/08/18 [...] generalized hyperpigmentation is stable. No jaundice. 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 Patient had x-ray done yesterday at [facility]. SONA Observed: 02/03/2018 Status: COMPLETED Source: [place] 9:40 AM [facility] REPOSITORY Office Visit () SIMON PEACOCK ([id number]) 1955 M Date Time Provider Department 02/03/18 [...] time. Patient had x-ray done yesterday at [facility]. 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 Die Cast Operator: SHYLA Transcribe Date/Time: Feb 02 2018 12:06P Dictated by : YUNIER PARKS MD This examination was interpreted and the report reviewed and electronically signed by: YUNIER PARKS MD on Feb 02 2018 12:08PM EST [id number] PROGRESS Observed: 02/02/2018 Status: COMPLETED Source: [place] 9:56 AM [facility] REPOSITORY HNO ID: [id number] Author: Juliana Foster (Ct), ALETHEA Service: (none) Author Type: Clinical Neuropsychiatrist Type: Progress Notes Filed: 02/02/2018 9:57 AM [...] AM PROGRESS Observed: 01/18/2018 Status: COMPLETED Source: [place] 10:50 AM [facility] REPOSITORY HNO ID: [id number] Author: Yohan Ordoñez Service: (none) Author Type: [...] generalized hyperpigmentation is stable. No jaundice. 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 No focal motor [...] FUNCTN PANEL Collected: 01/18/2018 Status: F Source: [place] 10:34 AM [facility] [place] REPOSITORY TYPE CODE TESTS RESULT OUT OF REFERENCE UNITS RANGE LAB ALB 3.9-4.9 g/dL Albumin 3.9 LAB TBIL 0.2-1.3 mg/dL Bilirubin, Total 0.6 LAB CBIL <0.2 mg/dL Bilirubin,Conjuga <0.2 efra LAB ALKP 36-108 U/L Alkaline Phosphatase 69 LAB AST 14-40 U/L AST 24 LAB ALT 10-54 U/L ALT 20 LAB TP 6.3-8.0 g/dL Protein, Total 6.5 Performed By: #### HFP, TSH, CEA #### [facility] [employer] [address] [id number] TSH Collected: 01/18/2018 Status: F Source: [place] 10:34 AM [facility] REPOSITORY TYPE CODE TESTS RESULT OUT OF RANGE REFERENCE UNITS LAB TSH 0.400-5.500 uU/mL TSH 3.780 Performed By: #### HFP, TSH, CEA #### [facility] [address] [address] CEA Collected: 01/18/2018 Status: F Source: [place] 10:34 AM [facility] REPOSITORY TYPE CODE TESTS RESULT OUT OF RANGE REFERENCE UNITS LAB CEA 0.0-2.9 ng/mL High CEA 3.1 Result Comment: Test analyzed by the [employer] DxI method. Performed By: #### HFP, TSH, CEA #### [place] [address] IGOR ISLES BMP Collected: 01/18/2018 Status: F Source: [place] 10:33 AM [facility] REPOSITORY TYPE CODE TESTS RESULT OUT [...] GFR. CNOVSP Observed: 01/18/2018 Status: COMPLETED Source: [place] 10:10 AM [facility] REPOSITORY Visit (SP) Office ([place]) SIMON PEACOCK ([id number]) 1955 M Date Time Provider Department 01/18/18 [...] generalized hyperpigmentation is stable. No jaundice. 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] INVALID FOR* Visit Notes: >> Kristal Fernandez LPN Mon Jan 18, 2018 10:04 AM Status: Signed Est pt., discuss recent lab results, tx tomorrow Kristal Fernandez LPN Encounter Status:Closed by YOHAN ORDOÑEZ DO on 01/18/18 PROGRESS Observed: 01/13/2018 Status: COMPLETED Source: [place] 10:03 AM [facility] [place] REPOSITORY O ID: [id number] Author: oCry Mejia V Service: (none) Author Type: Physician [...] DO PROGRESS Observed: 01/13/2018 Status: COMPLETED Source: [place] 9:50 AM [facility] REPOSITORY O ID: [id number] Author: Nella Gomes Ma Service: (none) Author [...] leg. 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 IMPRESSION: Patellar fracture Die Cast Operator: SHYLA Transcribe Date/Time: Jan 14 2018 10:11A Dictated by : SANJIV ESCOTO MD This examination was interpreted and the report reviewed and electronically signed by: SANJIV ESCOTO MD on Jan 14 2018 10:12AM EST [id number] PROGRESS Observed: 01/13/2018 Status: COMPLETED Source: [place] 9:27 AM [facility] REPOSITORY HNO ID: [id number] Author: Megha Pink (Tech) Service: (none) Author Type: Neuropsychiatrist Type: Progress Notes Filed: 01/13/2018 9:38 AM [...] AM PROGRESS Observed: 12/30/2017 Status: COMPLETED Source: [place] 11:27 AM [facility] REPOSITORY HNO ID: [id number] Author: Francoise TrianaRn) RUBÉN Bonds Service: (none) Author Type: Registered Nurse Type: Progress Notes Filed: 12/30/2017 12:19 PM Note Text: PT ASSESSMENT - CASTING ROOM Simon presents for Application of brace. Applied T-ROM Advance to Left knee Patient has been instructed in Care and proper application of brace. Patient signed Greg Sanchez agreement. Francoise Bonds RN PROGRESS Observed: 12/30/2017 Status: COMPLETED Source: [place] 10:37 AM [facility] REPOSITORY HNO ID: [id number] Author: Cory Mejia V Service: (none) Author [...] DO PROGRESS Observed: 12/30/2017 Status: COMPLETED Source: [place] 10:20 AM [facility] [place] REPOSITORY O ID: [id number] Author: Francoise (Rn) RUBÉN Bonds Service: (none) [...] RN CNOV Observed: 12/30/2017 Status: COMPLETED Source: [place] 10:00 AM [facility] REPOSITORY Office Visit (UC) SIMON [place] ([id number]) 1955 M Date Time Provider Department 12/30/17 [...] Francoise Bonds RN Referring Provider: YOHAN ORDOÑEZ [[id number]] Allergies As of Date: 12/30/2017 (No Known Allergies) Date Reviewed: 12/30/2017 Reviewed by: Francoise (Rubén) RUBÉN Bonds - Fully Assessed Reason for Visit: New Patient [172] Cmt: left patella fx, ref- Gus Ordoñez- 12/29/17 Reason For Visit History Recorded Primary Visit Diagnosis:Closed nondisplaced fracture of right patella, unspecified fracture morphology, initial encounter [S82.001A] Order(s):XR KNEE INJURY 4V AP/LAT/OBLS LT [[id number]] Order #: [id number] FUTURE Prescriptions as of 12/30/2017 Sig: IMODIUM [...] [I95.1] INVALID FOR*06/19/2017 Pulmonary hypertension, secondary (HCC) [[id number]*INVALID FOR* Hypomagnesemia [E83.42] INVALID FOR* Hypotension, chronic [I95.89] INVALID FOR*06/19/2017 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 IMPRESSION: Acute fracture of the patella. Die Cast Operator: PSCAlyse Transcribe Date/Time: Dec 29 2017 10:11P Dictated by : ARIEL STONE MD This examination was interpreted and the report reviewed and electronically signed by: ARIEL STONE MD on Dec 29 2017 10:13PM EST [id number] PROGRESS Observed: 12/29/2017 Status: COMPLETED Source: [place] 1:49 PM [facility] REPOSITORY HNO ID: [id number] Author: Radha Montoya (Rt) Megha Travis Service: (none) Author Type: Neuropsychiatrist Type: Progress Notes Filed: 12/29/2017 1:59 PM [...] PM PROGRESS Observed: 12/07/2017 Status: COMPLETED Source: [place] 10:18 AM [facility] REPOSITORY [facility] ID: [id number] Author: Yohan Ordoñez Service: (none) Author Type: [...] generalized hyperpigmentation is stable. No jaundice. 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 No focal motor [...] DO CNOVSP Observed: 12/07/2017 Status: COMPLETED Source: [place] 10:10 AM [facility] [facility] Visit (SP[facility] Office ([place]) SIMON PEACOCK ([id number]) 1955 M Date Time Provider Department 12/07/17 [...] generalized hyperpigmentation is stable. No jaundice. 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 Kristal Fernandez LPN Encounter Status:Closed by YOHAN ORDOÑEZ DO on 12/07/17 PROGRESS Observed: 2017 Status: COMPLETED Source: [place] 10:23 AM [facility] REPOSITORY O ID: [id number] Author: Sara Crow Ct Service: (none) Author [...] PERIPHERAL IV ACCESS: power port accessed by [employer]idsi RADIOLOGY DEPARTMENT: CT; Exam(s) Completed: Chest Abdomen Pelvis SIGNED BY: Sara Crow Ct 2017 10:[address] ABD/PEL W IVCON Observed: 2017 Status: F Source: [place] 9:26 AM [facility] REPOSITORY * * *Final Report* * * DATE OF EXAM: 2017 9:26AM [facility] 0530 - CT ABD/PEL W IVCON / [...] RESOLUTION OF PREVIOUSLY SEEN RIGHT PERICOLONIC IMPLANT Die Cast Operator: PSCAlyse Transcribe Date/Time: 2017 12:49P Dictated by : PATIENCE WEI MD This examination was interpreted and the report reviewed and electronically signed by: PATIENCE WEI MD on 2017 12:55PM EST [id number] CT CHEST W IVCON Observed: 2017 Status: F Source: [place] 9:26 AM [facility] REPOSITORY * * *Final Report* * * DATE OF EXAM: 2017 9:26AM [facility] 0539 - CT CHEST W IVCON / [...] pulmonary nodules or lymphadenopathy in the chest. Die Cast Operator: PSCB Transcribe Date/Time: Dec 04 2017 10:09A Dictated by : SHAKIRA CHAUDHRY MD This examination was interpreted and the report reviewed and electronically signed by: SHAKIRA CHAUDHRY MD on Dec 04 2017 1:41PM EST [id number] IGOR ISTAT BMP Collected: 2017 Status: F Source: [place] 8:30 AM [facility] REPOSITORY TYPE CODE TESTS RESULT OUT [...] + CBC Collected: 2017 Status: F Source: [place] 8:30 AM [facility] REPOSITORY TYPE CODE TESTS RESULT OUT OF REFERENCE UNITS RANGE LAB WWBC 3.70-11.00 k/uL [place] WBC 4.20 LAB WRBC 4.20-6.00 m/uL [place] RBC 4.22 LAB WHGB 13.0-17.0 g/dL [place] Hemoglobin 14.2 LAB WHCT 39.0-51.0 % [place] Hematocrit 42.9 LAB WMCV 80.0-100.0 fL [place] High MCV 101.7 LAB WMCH 26.0-34.0 pg [place] MCH 33.6 LAB WMCHC 30.5-36.0 g/dL [place] MCHC 33.1 LAB WRDW 11.5-15.0 % [place] RDW 11.9 LAB WPLT 150-400 k/uL [place] Platelet Cnt 184 LAB WMPV 9.0-12.7 fL [place] MPV 9.1 Result Comment: Test performed at: [facility], [address] [place] [address]. LAB ABGRAN 1.45-7.50 k/uL Absol Gran 2.34 Count HEPATIC FUNCTN PANEL Collected: 2017 Status: F Source: [place] 8:30 AM [facility] REPOSITORY TYPE CODE TESTS RESULT OUT [...] Performed By: #### HFP, TSH, CEA #### [facility] [address] [address] TSH Collected: 2017 Status: F Source: [place] 8:30 AM [facility] REPOSITORY TYPE CODE TESTS RESULT OUT OF RANGE REFERENCE UNITS LAB TSH 0.400-5.500 uU/mL TSH 3.900 Performed By: #### HFP, TSH, CEA #### [facility] [address] [id number] CEA Collected: 2017 Status: F Source: [place] 8:30 AM [facility] REPOSITORY TYPE CODE TESTS RESULT OUT OF RANGE REFERENCE UNITS LAB CEA 0.0-2.9 ng/mL High CEA 3.4 Result Comment: Test analyzed by the [employer] DxI method. Performed By: #### HFP, TSH, CEA #### [facility] [address] [address] NURSING PROG Observed: 11/27/2017 Status: COMPLETED Source: [place] 9:03 AM [facility] REPOSITORY HNO ID: [id number] Author: Leeann TrianaRn) RUBÉN Aguirre Service: Nursing Author Type: Registered Nurse Type: Nursing Progress Note Filed: 11/27/2017 9:07 AM Note Text: Patient did not experience a fall prior to discharge. Patient did not experience a burn prior to discharge. Leeann Aguirre RN NURSING PROG Observed: 11/27/2017 Status: COMPLETED Source: [place] 9:00 AM [facility] REPOSITORY HNO ID: [id number] Author: Leeann TrianaRnBonnie Aguirre RN Service: Nursing Author Type: Registered Nurse Type: Nursing Progress Note Filed: 11/27/2017 9:08 AM Note Text: Dr Santamaria to talk to patient. NURSING PROG Observed: 11/27/2017 Status: COMPLETED Source: [place] 8:45 AM [facility] REPOSITORY HNO ID: [id number] Author: Leeann TrianaRn) RUBÉN Aguirre Service: Nursing Author Type: Registered Nurse Type: Nursing Progress Note Filed: 11/27/2017 8:48 AM Note Text: Dressing to go home, no complaints, all safety maintained. NURSING PROG Observed: 11/27/2017 Status: COMPLETED Source: [place] 8:30 AM [facility] REPOSITORY HNO ID: [id number] Author: Leeann TrianaRnBonnie Aguirre RN Service: Nursing Author Type: Registered Nurse Type: Nursing Progress Note Filed: 11/27/2017 8:38 AM Note Text: Awakening, tolerating snack well, no complaints, all safety maintained. PT ED Observed: 11/27/2017 Status: COMPLETED Source: [place] 8:20 AM [facility] REPOSITORY HNO ID: [id number] Author: Leeann TrianaRn) RUBÉN Aguirre Service: Nursing [...] NURSING PROG Observed: 11/27/2017 Status: COMPLETED Source: [place] 8:13 AM [facility] REPOSITORY HNO ID: [id number] Author: Leeann Aguirre RN Service: Nursing Author Type: Registered Nurse Type: Nursing Progress Note Filed: 11/27/2017 8:14 AM Note Text: Hung 500 cc of LR due to lower blood pressure. NURSING PROG Observed: 11/27/2017 Status: COMPLETED Source: [place] 8:05 AM [facility] REPOSITORY HNO ID: [id number] Author: Leeann TrianaRn) Timothy RN Service: Nursing Author Type: Registered Nurse Type: Nursing Progress Note Filed: 11/27/2017 8:09 AM Note Text: Pt into Endo recovery room in satisfactory condition. Resting on left side. Pt. sleepy but arousable. Abdomen soft, no complaints, all safety maintained. Will continue to monitor. NURSING PROG Observed: 11/27/2017 Status: COMPLETED Source: [place] 8:03 AM [facility] REPOSITORY HNO ID: [id number] Author: Carmen TrianaRn) RUBÉN Church Service: Nursing Author Type: Registered Nurse Type: Nursing Progress Note Filed: 11/27/2017 8:03 AM Note Text: Patient did not experience a fall within the Intraoperative area. Patient did not experience a burn within the Intraoperative area. Carmen Church RN NURSING PROG Observed: 11/27/2017 Status: COMPLETED Source: [place] 7:37 AM [facility] REPOSITORY HNO ID: [id number] Author: Leeann TrianaRn) RUBÉN Aguirre Service: Nursing [...] HISTORY PHYSICAL Observed: 11/27/2017 Status: COMPLETED Source: [place] 7:32 AM [facility] REPOSITORY HNO ID: [id number] Author: Simon Santamaria Service: General Surgery Author [...] PT ED Observed: 11/27/2017 Status: COMPLETED Source: [place] 7:00 AM [facility] REPOSITORY HNO ID: [id number] Author: Leeann (Rn) RUBÉN Aguirre Service: Nursing [...] METABOLIC PANEL Collected: 11/17/2017 Status: F Source: [place] 10:14 AM [facility] REPOSITORY TYPE CODE TESTS RESULT OUT OF REFERENCE UNITS RANGE LAB TP 6.3-8.0 g/dL Low Protein, Total 6.2 LAB ALB 3.9-4.9 g/dL Low Albumin 3.7 LAB CA 8.5-10.2 mg/dL Calcium, Total 8.8 LAB TBIL 0.2-1.3 mg/dL Bilirubin, Total 0.6 LAB ALKP 36-108 U/L Alkaline Phosphatase 68 LAB AST 14-40 U/L AST High 44 LAB GLU 74-99 mg/dL Glucose 89 Result Comment: The [place] [employer] (ADA) provides guidance for cutoff [...] Standards of Medical Care in Diabetes 2016, [place] [employer]. Diabetes Care. 2016.39(Suppl 1). LAB [...] GFR. Performed By: #### CMP, CEA #### [facility] [employer] [address] [place] [id number] CEA Collected: 11/17/2017 Status: F Source: [place] 10:14 AM [facility] REPOSITORY TYPE CODE TESTS RESULT OUT OF RANGE REFERENCE UNITS LAB CEA 0.0-2.9 ng/mL High CEA 4.0 Result Comment: Test analyzed by the [employer] DxI method. Performed By: #### CMP, CEA #### [facility] [employer] [address] [place] [id number] IGOR ABS GR + CBC Collected: 11/17/2017 Status: F Source: [place] 10:13 AM [facility] REPOSITORY TYPE CODE TESTS RESULT OUT OF REFERENCE UNITS RANGE LAB WWBC 3.70-11.00 k/uL [place] WBC 4.60 LAB WRBC 4.20-6.00 m/uL [place] RBC 4.22 LAB WHGB 13.0-17.0 g/dL [place] Hemoglobin 14.3 LAB WHCT 39.0-51.0 % [place] Hematocrit 41.3 LAB WMCV 80.0-100.0 fL [place] MCV 97.9 LAB WMCH 26.0-34.0 pg [place] MCH 33.9 LAB WMCHC 30.5-36.0 g/dL [place] MCHC 34.6 LAB WRDW 11.5-15.0 % [place] RDW 11.9 LAB WPLT 150-400 k/uL [place] Platelet Cnt 201 LAB WMPV 9.0-12.7 fL [place] MPV 9.4 Result Comment: Test performed at: [facility], [address] [place] [address]. LAB ABGRAN 1.45-7.50 k/uL Absol Gran 2.91 Count PROGRESS Observed: 11/05/2017 Status: COMPLETED Source: [place] 8:43 AM [facility] [place] REPOSITORY HNO ID: [id number] Author: Simon Santamaria Service: (none) Author Type: [...] entered by the nurse and reviewed by nv Nursing Notes: Darlin Verduzco LPN 11/05/2017 8:07 [...] testing has been completed. 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 DO Kristal Castellano LPN, DYLAN 11/17/2017 12:56 PM Signed Pt. Notified rx for tamiflu sent to [facility]. Take is directed, keep appts. For colonoscopy and ct as scheduled. Pt. Voiced understanding Kristal Fernandez LPN Progress Notes ([facility]): Yahaira Cosme, RN, RN 11/17/2017 [...] LPN PROGRESS Observed: 10/26/2017 Status: COMPLETED Source: [place] 9:20 AM [facility] REPOSITORY O ID: [id number] Author: Yohan Ordoñez Service: (none) Author Type: [...] generalized hyperpigmentation is stable. No jaundice. 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 No focal motor [...] + CBC Collected: 10/26/2017 Status: F Source: [place] 9:15 AM [facility] REPOSITORY TYPE CODE TESTS RESULT OUT OF REFERENCE UNITS RANGE LAB WWBC 3.70-11.00 k/uL [place] WBC 3.94 LAB WRBC 4.20-6.00 m/uL [place] RBC 4.43 LAB WHGB 13.0-17.0 g/dL [place] Hemoglobin 14.7 LAB WHCT 39.0-51.0 % [place] Hematocrit 44.3 LAB WMCV 80.0-100.0 fL [place] MCV 100.0 LAB WMCH 26.0-34.0 pg [place] MCH 33.2 LAB WMCHC 30.5-36.0 g/dL [place] MCHC 33.2 LAB WRDW 11.5-15.0 % [place] RDW 12.0 LAB WPLT 150-400 k/uL [place] Platelet Cnt 163 LAB WMPV 9.0-12.7 fL [place] MPV 9.4 Result Comment: Test performed at: [facility] [place], [address] [place] [address]. LAB ABGRAN 1.45-7.50 k/uL Absol Gran 2.41 Count IGOR ISTAT BMP Collected: 10/26/2017 Status: F Source: [place] 9:15 AM [facility] REPOSITORY TYPE CODE TESTS RESULT OUT [...] FUNCTN PANEL Collected: 10/26/2017 Status: F Source: [place] 9:15 AM [facility] REPOSITORY TYPE CODE TESTS RESULT OUT [...] Performed By: #### HFP, TSH, CEA #### [facility] [employer] [address] [address] TSH Collected: 10/26/2017 Status: F Source: [place] 9:15 AM [facility] REPOSITORY TYPE CODE TESTS RESULT OUT OF RANGE REFERENCE UNITS LAB TSH 0.400-5.500 uU/mL TSH 5.140 Performed By: #### HFP, TSH, CEA #### [facility] [employer] [address] [address] CEA Collected: 10/26/2017 Status: F Source: [place] 9:15 AM [facility] REPOSITORY TYPE CODE TESTS RESULT OUT OF RANGE REFERENCE UNITS LAB CEA 0.0-2.9 ng/mL High CEA 4.2 Result Comment: Test analyzed by the [employer] DxI method. Performed By: #### HFP, TSH, CEA #### [facility] [employer] [address] [address] CNOVSP Observed: 10/26/2017 Status: COMPLETED Source: [place] 9:10 AM [facility] REPOSITORY Visit (SP) Office ([place]) SIMON PEACOCK ([id number]) 1955 M Date Time Provider Department 10/26/17 [...] generalized hyperpigmentation is stable. No jaundice. 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] Order(s):CT ABD/PEL W IVCON [[id number]] Order #: [id number] FUTURE CT CHEST W IVCON [[id number]] Order #: [id number] FUTURE iv contrast (radiology procedure)CT Chest ABD/PEL-Inject, [...] [I95.1] INVALID FOR*06/19/2017 Pulmonary hypertension, secondary (HCC) [DTS259*INVALID FOR* Hypomagnesemia [E83.42] INVALID FOR* Hypotension, chronic [I95.89] INVALID FOR*06/19/2017 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] INVALID FOR* Encounter Status:Closed by YOHAN ORDOÑEZ DO on 10/26/17 ALLERGIES ALLERGIES DATE TYPE / CODE NAME / CODE REACTION SEVERITY SOURCE 09/03/2018 Drug No Known Unknown [facility] Allergy/416 Allergies/A40166 Hospital 718323(SNOM 0388(RXNORM) Repository ED CT) Drug NO KNOWN [facility] Class/11149 ALLERGIES [place] 1003(SNOMED Repository CT) ENCOUNTERS ENCOUNTERS ADMIT/DISCHARGE ACCOUNT ADMITTING ENCOUNTER LOCATION SOURCE NUMBER CLASS 10/07/2018 [id number] Ambulatory [facility] ing:MTRAD Repository 10/05/2018/10/06/19 [id number] Ambulatory [address] Repository 09/29/2018/09/30/19 [id number] Ambulatory [address] Repository 09/03/2018/09/27/19 [id number] [place], Inpatient [facility] ing:FX4Dmpm: Repository SF580Zlt: 1 09/03/2018 [id number] [place], Ambulatory [facility]:Alyse [facility] Repository 09/03/2018 [id number] [place], Ambulatory [facility]MSBuilding:A[facility]se [facility] Repository 09/03/2018 [id number] [place], Ambulatory [facility]Building:[facility] Repository 09/03/2018 [id number] [place], Ambulatory [facility]Building:[facility] Repository 09/03/2018 [id number] Ag[place], Ambulatory [facility]Building:Alyse Car [facility] Repository 09/03/2018 [id number] [place], Ambulatory [facility]Building:Alyse Car [facility] Repository 09/03/2018 [id number] [place], Ambulatory [facility]Building:A[facility]se [facility] Repository 09/03/2018 [id number] [place], Ambulatory [facility]MSBuilding:Alyse [facility] Repository 09/03/2018 [id number] Ag[place], Ambulatory [facility]Building:Alyse [facility] Repository 09/03/2018 [id number] Agy[place], Ambulatory [facility]MSBuilding:Alyse Car [facility] Repository 09/03/2018 [id number] Agyep[place], Ambulatory [facility]Building:Alyse Car [facility] Repository 09/03/2018 [id number] Agyep[place], Ambulatory [facility]MSBuilding:Alyse Car [facility] Repository 09/03/2018 [id number] Agyepong, Ambulatory [facility]MSBuilding:Alyse Car [facility] Repository 09/03/2018 [id number] Agyepong, Ambulatory [facility]MSBuilding:Alyse [facility] Repository 09/03/2018 [id number] Agyepong, Ambulatory [facility]MSBuilding:Alyse Car [facility] Repository 09/03/2018 [id number] Agyepong, Ambulatory [facility]MSBuilding:Alyse Car [facility] Repository 09/03/2018 [id number] Agyepong, Ambulatory [facility]MSBuilding:Alyse [facility] Repository 09/03/2018 [id number] Agyepong, Ambulatory [facility]MSBuilding:Alyse Car [facility] Repository 09/03/2018 [id number] Agyepong, Ambulatory [facility]MSBuilding:Alyse Car [facility] Repository 09/03/2018 [id number] Agyepong, Ambulatory [facility]MSBuilding:Alyse [facility] Repository 09/03/2018 [id number] Agyepong, Ambulatory [facility]MSBuilding:Alyse [facility] Repository 09/03/2018 [id number] Agyepong, Ambulatory [facility]MSBuilding:A[facility] Repository 09/03/2018 [id number] Agyepong, Ambulatory BMSBuilding:Alyse Car [facility] Repository 09/03/2018 [id number] Agyepong, Ambulatory BMSBuilding:Alyse [facility] Repository 09/03/2018 [id number] Agyep[place], Ambulatory [facility]MSBuilding:Alyse [facility] Repository 09/03/2018/09/27/19 [id number] Ambulatory BMSBuilding:Twila Ramey [facility] Repository 08/18/2018/08/19/20 [id number] Ambulatory [address] Repository 08/17/2018/08/17/20 [id number] Ambulatory [address] Repository 08/17/2018/08/17/20 [id number] Ambulatory [address] Repository 08/17/2018/08/19/20 [id number] Ambulatory [facility] [place] Repository 08/17/2018/08/18/20 [id number] Ambulatory [facility] [place] Repository 07/28/2018/07/28/20 [id number] Ambulatory [facility] [place] Repository 07/28/2018/07/28/20 [id number] Ambulatory [facility] [place] Repository 07/28/2018/07/29/20 [id number] Ambulatory [facility] [place] Repository 07/07/2018/07/08/20 [id number] Ambulatory [facility] [place] Repository 07/06/2018/07/06/20 [id number] Ambulatory [facility] [place] Repository 07/06/2018/07/07/20 [id number] Ambulatory [facility] [place] Repository 07/06/2018/07/07/20 [id number] Ambulatory [facility] [place] Repository 06/16/2018/06/17/20 [id number] Ambulatory [facility] [place] Repository 06/16/2018/06/17/20 [id number] Ambulatory [facility] [place] Repository 06/16/2018/06/16/20 [id number] Ambulatory [facility] [place] Repository 05/26/2018/05/26/20 [id number] Ambulatory [facility] [place] Repository 05/26/2018/05/27/20 [id number] Ambulatory [facility] [place] Repository 05/25/2018/05/25/20 [id number] Ambulatory [facility] [place] Repository 05/25/2018/05/26/20 [id number] Ambulatory [facility] [place] Repository 05/25/2018/05/26/20 [id number] Ambulatory [facility] [place] Repository 05/04/2018/05/05/20 [id number] Ambulatory [facility] [place] Repository 05/04/2018/05/04/20 [id number] Ambulatory [facility] [place] Repository 05/04/2018/05/04/20 [id number] Ambulatory [facility] [place] Repository 04/13/2018/04/14/20 [id number] Ambulatory [facility] [place] Repository 04/12/2018/04/13/20 [id number] Ambulatory [facility] [place] Repository 04/12/2018/04/12/20 [id number] Ambulatory [facility] [place] Repository 04/12/2018/04/12/20 [id number] Ambulatory [facility] [place] Repository 04/06/2018/04/08/20 [id number] Ambulatory [facility] [place] Repository 04/06/2018/04/07/20 [id number] Ambulatory [facility] [place] Repository 04/06/2018/04/06/20 [id number] Ambulatory [facility] [place] Repository 04/06/2018 [id number] Ambulatory [facility] [place] Repository 04/06/2018 [id number] Ambulatory [facility] [place] Repository 03/26/2018/03/31/20 [id number] Ambulatory [facility] [place] Repository 03/26/2018/03/29/20 [id number] Ambulatory [facility] [place] Repository 03/26/2018/03/26/20 [id number] Ambulatory [facility] [place] Repository 03/22/2018/03/23/20 [id number] Ambulatory [facility] [place] Repository 03/19/2018/03/19/20 [id number] Ambulatory [facility] [place] Repository 03/19/2018/03/22/20 [id number] Ambulatory [facility] [place] Repository 03/19/2018/03/19/20 [id number] Ambulatory [facility] [place] Repository 03/02/2018/03/03/20 [id number] Ambulatory [facility] [place] Repository 03/01/2018 [id number] Ambulatory [facility] [place] Repository 03/01/2018/03/02/20 [id number] Ambulatory [facility] [place] Repository 03/01/2018/03/01/20 [id number] Ambulatory [facility] [place] Repository 02/17/2018/02/19/20 [id number] Ambulatory [facility] [place] Repository 02/17/2018/02/23/20 [id number] Ambulatory [facility] [place] Repository 02/09/2018/02/11/20 [id number] Ambulatory [facility] [place] Repository 02/08/2018 [id number] Ambulatory [facility] [place] Repository 02/08/2018/02/10/20 [id number] Ambulatory [facility] [place] Repository 02/08/2018/02/09/20 [id number] Ambulatory [place] [facility] [place] Repository 02/03/2018/02/06/20 [id number] Ambulatory [place] [facility] [place] Repository 02/02/2018/02/05/20 [id number] Ambulatory [place] [facility] [place] Repository 01/19/2018/01/21/20 [id number] Ambulatory [facility] [place] Repository 01/18/2018 [id number] Ambulatory [facility] [place] Repository 01/18/2018/01/20/20 [id number] [facility] [address] [place] [address] [place] Repository 01/18/2018/01/19/20 [id number] Ambulatory [address] [place] Repository 01/13/2018/01/14/20 [id number] Ambulatory [address] [place] Repository 01/13/2018/01/19/20 [id number] Ambulatory [address] [place] Repository 12/30/2017/01/01/20 [id number] Ambulatory [address] [place] Repository 12/29/2017/12/30/19 [id number] Ambulatory [address] [place] Repository 12/29/2017/12/31/19 [id number] Ambulatory [address] [place] Repository 12/08/2017/12/10/19 [id number] Ambulatory [address] [place] Repository 12/07/2017/12/09/19 [id number] Ambulatory [address] [place] Repository 12/03/2017/12/05/19 [id number] Ambulatory [address] [place] Repository 12/03/2017/12/05/19 [id number] Ambulatory [address] [place] Repository 2017 [id number] Ambulatory [facility] [place] Repository 12/03/2017/12/04/19 [id number] Ambulatory [address] [place] Repository 12/03/2017/12/04/19 [id number] Ambulatory [address] [place] Repository 11/27/2017/11/28/19 [id number] HINA, Ambulatory [facility] [place] Repository 11/17/2017/11/18/19 [id number] Ambulatory [address] [place] Repository 11/17/2017 [id number] Ambulatory [facility] [place] Repository 11/17/2017/11/17/19 [id number] Ambulatory [address] Repository 11/05/2017/11/05/19 [id number] Ambulatory [address] Repository 10/27/2017/10/28/19 [id number] Ambulatory [address] Repository 10/26/2017 [id number] Ambulatory [facility] Repository 10/26/2017/10/27/19 [id number] Ambulatory [address] Repository 10/26/2017/10/26/19 [id number] Ambulatory [address] Repository PAYERS PAYERS ENCOUNTER GUARANTOR PAYER SUBSCRIBER SOURCE 10/07/2018 SIMON L Primary SIMON Costa [id number] Insurance:MEDICAL SCHULZDOB: [facility] [id number], Number: [place] [phone]: [phone] [id number] [phone] () Date:1101-98-37HR [address] [address]JX: 10/07/2018 Secondary NOT GIVENUNK Tavares Insurance:SELF PAY [facility] Number: Effective Repository Date:2018-10-07 09/03/2018 SIMON L Primary SIMON Costa [id number] Insurance:MEDICAL SCHULZDOB: [facility] [id number], Number: [place] [phone]: 330 [id number] [phone] () Date:4428-57-44TU [address] [place] [address]BN: 09/03/2018 Secondary NOT GIVENUNK Igor Insurance:SELF PAY [facility] Number: Effective Repository Date:2018-09-03 09/03/2018 SIMON L Primary SIMON Costa [id number] Insurance:MEDICAL SCHULZDOB: [facility] [id number], Number: [place] [phone]: 330 [id number] [phone] () Date:2717-56-57MR [address] [place] [address]XO: 09/03/2018 Secondary NOT GIVENUNK Tava[place] Insurance:SELF PAY [facility] Number: Effective Repository Date:2018-09-03 09/03/2018 SIMON L Primary SIMON Montoya Igor [id number] Insurance:MEDICAL SCHULZDOB: [facility] [id number], Number: [place] [phone]: ([phone] [id number] [phone] (HP) Date:2448-31-64TJ [address] [address]IR: 09/03/2018 Secondary NOT GIVENUNK Tavares Insurance:SELF PAY [facility] Number: Effective Repository Date:2018-09-03 09/03/2018 SIMON L Primary SIMON Montoya Tavares [id number] Insurance:MEDICAL SCHULZDOB: [facility] [id number], Number: [place] [phone]: ([phone] [id number] [phone] () Date:5193-12-12GA [address] [address]YI: 09/03/2018 Secondary NOT GIVENUNK Igor Insurance:SELF PAY [facility] Number: Effective Repository Date:2018-09-03 09/03/2018 SIMON L Primary SIMON Montoya Igor [id number] Insurance:MEDICAL SCHULZDOB: [facility] [id number], Number: Repository [place] [phone]: ([phone] [id number] [phone] () Date:5456-39-64ZP [address] [address]SY: 09/03/2018 Secondary NOT GIVENUNK Igor Insurance:SELF PAY [facility] Number: Effective Repository Date:2018-09-03 09/03/2018 SIMON L Primary SIMON Montoya Tavares [id number] Insurance:MEDICAL SCHULZDOB: [facility] [id number], Number: Repository [place] [phone]: ([phone] [id number] [phone]) Date:1893-81-21TV [address] [place] [address]EF: 09/03/2018 Secondary NOT GIVENUNK Tavares Insurance:SELF PAY [facility] Number: Effective Repository Date:2018-09-03 09/03/2018 SIMON L Primary SIMON Costa [id number] Insurance:MEDICAL SCHULZDOB: [facility] [id number], Number: Repository [place] [phone]: ([phone] [id number] [phone]) Date:3762-93-07ZC [address] [place] [address]CH: 09/03/2018 Secondary NOT GIVENUNK Igor Insurance:SELF PAY [facility] Number: Effective Repository Date:2018-09-03 09/03/2018 SIMON L Primary SIMON Storyoster [id number] Insurance:MEDICAL SCHULZDOB: [facility] [id number], Number: [place]ository [place] [phone]: ([phone] [id number] [phone]) Date:4106-09-81JJ [address] [address]GB: 09/03/2018 Secondary NOT GIVENUNK Iogr Insurance:SELF PAY [facility] Number: Effective Repository Date:2018-09-03 09/03/2018 SIMON L Primary SIMON Costa [id number] Insurance:MEDICAL SCHULZDOB: [facility] [id number], Number: Repository [place] [phone]: ([phone] [id number] [phone]) Date:0366-99-67CD [address] [place] [address]GE: 09/03/2018 Secondary NOT GIVENUNK Tavares Insurance:SELF PAY [facility] Number: Effective Repository Date:2018-09-03 09/03/2018 SIMON L Primary SIMON Costa [id number] Insurance:MEDICAL SCHULZDOB: [facility] [id number], Number: Repository [place] [phone]: ([phone] [id number] [phone]) Date:1696-59-33AU [address] [place] [address]XZ: 09/03/2018 Secondary NOT GIVENUNK Igor Insurance:SELF PAY [facility] Number: Effective Repository Date:2018-09-03 09/03/2018 SIMON L Primary SIMON Montoya Igor [id number] Insurance:MEDICAL SCHULZDOB: [facility] [id number], Number: [place]ository [place] [phone]: ([phone] [id number] [phone]) Date:0661-17-18FS [address] [address]DH: 09/03/2018 Secondary NOT GIVENUNK Tavares Insurance:SELF PAY [facility] Number: Effective Repository Date:2018-09-03 09/03/2018 SIMON L Primary SIMON Costa [id number] Insurance:MEDICAL SCHULZDOB: [facility] [id number], Number: Repository [place] [phone]: ([phone] [id number] [phone]) Date:1902-42-32US [address] [place] [address]GA: 09/03/2018 Secondary NOT GIVENUNK Igor Insurance:SELF PAY [facility] Number: Effective Repository Date:2018-09-03 09/03/2018 SIMON L Primary SIMON Costa [id number] Insurance:MEDICAL SCHULZDOB: [facility] [id number], Number: [place]ository [place] [phone]: ([phone] [id number] [phone]) Date:0848-32-88FT [address] [place] [address]SB: 09/03/2018 Secondary NOT GIVENUNK Igor Insurance:SELF PAY [facility] Number: Effective Repository Date:2018-09-03 09/03/2018 SIMON L Primary SIMON Costa [id number] Insurance:MEDICAL SCHULZDOB: [facility] [id number], Number: [place] [phone]: ([phone] [id number] [phone] () Date:1815-88-56GZ [address] [place] [address]GG: 09/03/2018 Secondary NOT GIVENUNK Igor Insurance:SELF PAY [facility] Number: Effective Repository Date:2018-09-03 09/03/2018 SIMON L Primary SIMON Montoya Tavares [id number] Insurance:MEDICAL SCHULZDOB: [facility] [id number], Number: [place] [phone]: ([phone] [id number] [phone] () Date:6420-61-85EX [address] [address]YG: 09/03/2018 Secondary NOT GIVENUNK Tavares Insurance:SELF PAY [facility] Number: Effective Repository Date:2018-09-03 09/03/2018 SIMON L Primary SIMON Costa [id number] Insurance:MEDICAL SCHULZDOB: [facility] [id number], Number: [place] [phone]: ([phone] [id number] [phone] () Date:9032-10-20VS [address] [place] [address]TV: 09/03/2018 Secondary NOT GIVENUNK Igor Insurance:SELF PAY [facility] Number: Effective Repository Date:2018-09-03 09/03/2018 SIMON L Primary SIMON Costa [id number] Insurance:MEDICAL SCHULZDOB: [place] [id number], Number: [place]ository [place] [phone]: ([phone] [id number] [phone]) Date:6974-37-94FI [address] [place] [address]CD: 09/03/2018 Secondary NOT GIVENUNK Tavares Insurance:SELF PAY [facility] Number: Effective Repository Date:2018-09-03 09/03/2018 SIMON L Primary SIMON Montoya Igor [id number] Insurance:MEDICAL SCHULZDOB: [facility] [id number], Number: [place]ository [place] [phone]: ([phone] [id number] [phone]) Date:9046-28-31OO [address] [address]PT: 09/03/2018 Secondary NOT GIVENUNK Igor Insurance:SELF PAY [facility] Number: Effective Repository Date:2018-09-03 09/03/2018 SIMON L Primary SIMON Montoya Tavares [id number] Insurance:MEDICAL SCHULZDOB: [facility] [id number], Number: Repository [place] [phone]: ([phone] [id number] [phone]) Date:8563-06-99LY [address] [address]WF: 09/03/2018 Secondary NOT GIVENUNK Igor Insurance:SELF PAY [facility] Number: Effective Repository Date:2018-09-03 09/03/2018 SIMON L Primary SIMON Montoya Tavares [id number] Insurance:MEDICAL SCHULZDOB: [facility] [id number], Number: Repository [place] [phone]: ([phone] [id number] [phone]) Date:6300-24-89OS [address] [place] [address]UL: 09/03/2018 Secondary NOT GIVENUNK Igor Insurance:SELF PAY [facility] Number: Effective Repository Date:2018-09-03 09/03/2018 SIMON L Primary SIMON Costa [id number] Insurance:MEDICAL SCHULZDOB: [facility] [id number], Number: Repository [place] [phone]: ([phone] [id number] [phone]) Date:8573-93-76VT [address] [address]XT: 09/03/2018 Secondary NOT GIVENUNK Tavares Insurance:SELF PAY [facility] Number: Effective Repository Date:2018-09-03 09/03/2018 SIMON L Primary SIMON Costa [id number] Insurance:MEDICAL SCHULZDOB: [facility] [id number], Number: Repository [place] [phone]: (330 [id number] [phone]) Date:7000-54-33NA [address] [place] [address]WV: 09/03/2018 Secondary NOT GIVENUNK Tavares Insurance:SELF PAY [facility] Number: Effective Repository Date:2018-09-03 09/03/2018 SIMON L Primary SIMON Costa [id number] Insurance:MEDICAL SCHULZDOB: [facility] [id number], Number: Repository [place] [phone]: ([phone] [id number] [phone]) Date:2308-48-24EJ [address] [address]IE: 09/03/2018 Secondary NOT GIVENUNK Igor Insurance:SELF PAY [facility] Number: Effective Repository Date:2018-09-03 09/03/2018 SIMON L Primary SIMON Costa [id number] Insurance:MEDICAL SCHULZDOB: [place] [id number], Number: [place]ository [place] [phone]: ([phone] [id number] [phone]) Date:4445-13-42LD [address] [place] [address]BT: 09/03/2018 Secondary NOT GIVENUNK Tavares Insurance:SELF PAY [facility] Number: Effective Repository Date:2018-09-03 09/03/2018 SIMON Montoya Primary SIMON Costa [id number] Insurance:MEDICAL SCHULZDOB: [address], Number: Repository [place] [phone]: ([phone] [id number] [phone]) Date:1323-79-35SI [address] [place] [address]QG: 09/03/2018 Secondary NOT GIVENUNK Tavares Insurance:SELF PAY [facility] Number: Effective Repository Date:2018-09-03 09/03/2018 SIMON L Primary SIMON Costa [id number] Insurance:MEDICAL SCHULZDOB: [address], Number: [place] [phone]: ([phone] [id number] [phone] (HP) Date:9867-79-12KE [address] [address]ES: 09/03/2018 Secondary NOT GIVENUNK Tavares Insurance:SELF PAY [facility] Number: Effective Repository Date:2018-09-03 09/03/2018 SIMON Montoya Primary SIMON Costa [id number] Insurance:MEDICAL SCHULZDOB: [address], Number: Repository [place] [phone]: (330 [id number] [phone] (HP) Date:0355-45-74ZP [address] [place] [address]DQ: 09/03/2018 Secondary NOT GIVENUNK Tavares Insurance:SELF PAY [facility] Number: Effective Repository Date:2018-09-03
== END ==
PROVIDERS: Referring Provider Internal Medicine Pulmonary Disease; Visit Provider Internal Medicine Pulmonary Disease
DX: R05 Cough (principal)
CPT/HCPCS: 71046

== ENCOUNTER → 2023-11-24 | Outpatient (CLI) | payer MEDICARE, SELFPAY ==
--- NOTE | 2023-11-24 11:30 | PET_ITS ---
EXAMINATION: FDG PET/CT ? INDICATIONS: 67-year-old male with a history of gastric carcinoma, presenting for restaging examination. ? COMPARISON EXAMINATION: None available. TECHNIQUE: Following the intravenous administration of 14.51 mCi of F-18 deoxyglucose via the Medi-Port injection site, multiplanar image acquisitions of the head, neck, chest, abdomen and pelvis to the level of the midthigh, obtained at one-hour post radiopharmaceutical administration contemporaneously interpreted with the current CT of the chest, abdomen and pelvis dated 11/24/2023 via coregistration reveal: ? SERUM GLUCOSE LEVEL:? 99 mg/dL? HEIGHT:?? 75 inches WEIGHT:?? 175 pounds ? FINDINGS: ? HEAD/NECK:? There is no evidence of abnormal increased glucose metabolism in the pharyngeal mucosal space, parapharyngeal space, oropharynx, bilateral-lateral and anterior neck, hypopharynx and distribution of the larynx. ? Decreased FDG concentration appears evident in the right cerebellar hemisphere with otherwise preserved and symmetric glucose metabolism noted in the remaining cerebral cortical and subcortical structures. ? CHEST:? Facilitated uptake is noted in the right upper anterior chest wall associated with port injection site. ? CT of the chest demonstrates the following anatomic characteristics: There are no parenchymal densities-nodules defined in the right and left hemithorax with quantitatively significant increased FDG uptake. Atherosclerotic calcification is defined in the thoracic aorta without evidence of dilatation, aneurysm formation. Calcified and noncalcified mediastinal and thoracic perihilar as well as bilateral axillary soft tissue densities are non tracer avid. ? ABDOMEN/PELVIS:? Normal physiologic distribution of the radiopharmaceutical is identified in the hepatic and splenic parenchyma, left renal unit, urinary bladder, and visualized intestinal tract. ? CT of the abdomen and pelvis is remarkable for the following: Surgical clip placement is defined in the right renal bed with absence of the right kidney, commensurate with previous nephrectomy. Post-procedural changes are defined in the right mid-lower abdominal and upper pelvic mesentery. Calcification is defined within the prostate gland without evidence of increased tracer uptake. Right and left inguinal soft tissue densities are ametabolic. Post surgical change-surgical clip placement is noted in the right hemipelvic mesentery. Atherosclerotic calcification is defined in the abdominal aorta without evidence of dilatation, aneurysm formation. Pelvic arterial calcification is observed. ? SKELETAL:? Degenerative changes defined in the thoracic and lumbar spine demonstrate no evidence of increased glucose metabolism. There are no sclerotic, mixed sclerotic-lytic, or primarily lytic changes defined in the axial skeletal structures with evidence of increased FDG uptake. ? PET/PET/CT Tumor Base -Thigh Subs IMPRESSION: NEGATIVE EXAMINATION. There is no definitive quantitatively significant scintigraphic evidence of recurrent-metastatic viable neoplasm. Electronic Signature Anderson Rodriguez D.O. Accurate Quantification of SUVs for this report are calculated using the exclusive [employer] Technology. ([place]. Patent No. [phone] 983 B2 [phone] [place] patent [id number]). Standardization and correction of the FDG SUV metric via [employer] technology allow for vendor non-specific objective quantitative examination comparison and optimization of the sensitivity and specificity of the FDG PET-CT examination. . [email or web address] Electronically Signed: Anderson Rodriguez DO at 11:26 EST ,
== END | disposition home or self-care (01) ==
PROVIDERS: Referring Provider Internal Medicine Hematology & Oncology; Visit Provider Internal Medicine Hematology & Oncology
DX: C18.0 Malignant neoplasm of cecum (principal); C77.2 Secondary and unspecified malignant neoplasm of intra-abdominal lymph nodes; C78.6 Secondary malignant neoplasm of retroperitoneum and peritoneum
CPT/HCPCS: 78815; 96523; A9552; A4216